=== PATIENT | female | born 1970 | race Caucasian/White ===

== ENCOUNTER 2019-01-05 09:55 | Day surgery (SDC) | payer OTHER, SELFPAY ==
--- NOTE | 2019-01-04 19:08 | HP.PCM_ITS ---
History and Physical Date of Admission: 01/05/19 Madeline Bone 1970 ? ? REFERRING PHYSICIAN: Shashi Morris MD ? CHIEF COMPLAINT: Left breast intraductal papilloma ? HPI: The patient is a 48 year old female presents with episode of milky left breast nipple discharge for a day, and states no other time since. No bloody nipple discharge. No right breast nipple discharge. Denies palpable breast masses. Denies breast pain. Denies previous breast biopsies or surgeries. Aunt had breast cancer, no ovarian cancer known in family. ? Mammograms 11/22/18 IMPRESSION: SUSPICIOUS FINDING - BIOPSY SHOULD BE CONSIDERED There is no abnormality seen in the left breast to correspond with the discharge from the nipple, however, clinical correlation is recommended. US 11/22/18 There is an oval mass with an intraductal extension in the left breast at 11 o'clock in the retroareolar region. ?This oval mass is hypoechoic with a well-defined boundary and internal echoes. IMPRESSION: SUSPICIOUS FINDING - BIOPSY SHOULD BE CONSIDERED The oval mass in the left breast is suspicious of malignancy. ?An ultrasound guided biopsy is recommended. ? US guided needle core breast biopsy - intraductal papilloma ? ? PAST MEDICAL HISTORY ? Allergic rhinitis, cause unspecified 09/10/2008 ? Asthma ? ? Environmental allergies ? ? Never formally tested. Sneezes, itches around cats. ? Excessive or frequent menstruation ? ? Heavy periods ? Gastroesophageal reflux disease without esophagitis 09/10/2008 ? Hemorrhage of gastrointestinal tract, unspecified 05/10/2014 ? Irregular menstrual cycle ? ? Irregular periods ? Mild persistent asthma without complication 12/11/2008 ? Obesity, Class III, BMI >= 40 (morbid obesity) E66.01 12/03/2016 ? Pneumonia 2008 ? Required intubation ? Shortness of breath 2006 ? Was on a ventolator with pneumonia ? Tonsil asymmetry 03/04/2018 ? Lt at 2+ Rt normal. chronic ? ? PAST SURGICAL HISTORY ? COLONOSCOP W/ OR W/O BRSH SPEC ? 05/10/14 ? Colonoscopy ? HYSTEROSCOPY, DIAGNOSTIC (SEPARATE ? 07/01 ? Hysteroscopy & curettage ? LIGATE FALLOPIAN TUBE ? ? ? Tubal ligation ? VAGINAL HYSTERECTOMY ? 12/08/10 ? TVH ? ? Current Outpatient Medications: escitalopram oxalate (LEXAPRO) 20 mg tablet Take 1 tablet by mouth once daily. albuterol sulfate (PROAIR RESPICLICK) 90 mcg/actuation aepb Inhale 1 Inhaler as instructed every 4 hours as needed. omeprazole (PRILOSEC) 20 mg capsule TAKE TWO CAPSULES BY MOUTH ONCE DAILY BEFORE BREAKFAST montelukast (SINGULAIR) 10 mg tablet Take 1 tablet by mouth daily at bedtime. fluticasone-vilanterol (BREO ELLIPTA) 200-25 mcg/dose inhaler Inhale 1 Inhalation as instructed once daily. loratadine (CLARITIN) 10 mg tablet Take 1 tablet by mouth once daily as needed. FOR ALLERGY SYMPTOMS albuterol (PROVENTIL) 2.5 mg /3 mL (0.083 %) nebulizer solution Use 3 mL via nebulizer every 4 hours as needed for Wheezing/Shortness of Breath. Use over 5- 15minutes. albuterol 5 mg/mL nebu Inhale 0.5 mL as instructed every 4 hours as needed for 7 days. 1 DOSE NOW - BACK OFFICE. PLACE 0.5 ML PER DROPPER AND 2.5 ML OF NORMAL SALINE INTO RESERVOIR. ? ? ALLERGIES: Cats; Excedrin [Acetaminophen-Caffeine] ? 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 Other family visitors smoke. Parents and Grandparents smoked in childhood home. Substance and Sexual Activity Alcohol use: Yes Comment: social Drug use: No Social History Narrative In current since home 1993. Neighborhood home. Basement not dry. No visible. Dog in home, entire house access. Master BR hardwood floor. Forced air furnace. No central A/C. Filters twice annually. ? FAMILY HISTORY ? Cancer Father ?? Stomach ? Heart Attack Brother 52 ? Heart Paternal Grandmother ? ? COPD Paternal Grandmother? Emphysema. Smoker. ? Asthma Son ? ? Hypertension Brother ? ? Breast Cancer Paternal Aunt ? ? Diabetes Paternal Aunt ? ? ? REVIEW OF SYSTEMS: General: The patient denies fatigue, denies weight loss, denies weight gain, denies feeling hot, and denies feelings of cold. Eyes: The patient denies glaucoma, denies eye injury/surgery, does not wear glasses or contacts. Ear/Nose/Throat: The patient notes allergies, denies hayfever, denies ear infections, and denies bloody noses. Cardiovascular: The patient denies chest pain, denies heart disease, denies high blood pressure,denies cardiac stent, denies prior heart attack, denies irregular heart beat, denies high cholesterol, denies poor circulation, denies heart failure, other cardiac issues, denies claudication, denies cold feet, denies peripheral arterial stent. Respiratory: The patient denies tuberculosis, denies pneumonia, denies frequent cough, denies pulmonary embolism, denies shortness of breath, and denies coughing up blood. Gastrointestinal: The patient denies difficulty swallowing, notes acid reflux, denies ulcers, denies vomiting, denies jaundice/hepatitis, denies gallbladder problems, denies black or tarry stools, denies hemorrhoids, denies bleeding from rectum, denies diverticulitis, denies constipation, denies diarrhea, denies loss of stool control, and denies hernias. Kidney/Bladder: The patient denies kidney stones, denies urine infections, and denies bloody urine. Skin: The patient denies a history of skin cancer, denies bleeding/changing moles, and denies a history of skin rash. Neurologic: The patient denies a history of epilepsy/convulsions, denies headaches, denies head/spinal injuries, and denies stroke/TIA. Psychiatric: The patient denies psychiatric medications, denies depression, and denies voices, denies substance abuse. Endocrine: The patient denies thyroid disorders, denies diabetes, and denies hormonal problems. Hematologic: The patient denies a history of bruising, denies bleeding, and denies anemia, denies blood clots. Infections: The patient denies a history of measles and mumps, denies rheumatic fever, and denies sexually transmitted diseases. Musculoskeletal: The patient denies back pain/injury, denies back problems, denies sciatica, denies knee/foot trouble, denies arthritis, or denies gout. Obstetrical: menarche onset at age 12, , first at age 18, denies breast feeding, BCP use initially age 18 for about 5 years, Depo for 10 y, surgical menopause age 40, feels like she is having menopause symptoms presently with hot flashes, etc. ? PHYSICAL EXAMINATION: General: The patient is 48 year old female, well nourished, well hydrated in no acute distress. The patient is oriented to time, place, and person. VITALS: Blood pressure 164/82, pulse 85, temperature 36.3 ?C (97.4 ?F), temperature source Temporal Artery, height 161.9 cm (5' 3.75), weight 121 kg (266 lb 12.8 oz), SpO2 98 %. Body mass index is 46.16 kg/m?. Head ? Normocephalic. EOM intact with sclera clear and no icterus noted. Mouth with mucus membranes moist. Neck - supple with no jugular venous distention noted. Trachea is midline. No carotid bruits noted. No thyroid enlargement or thyroid nodules detected. No masses noted. Chest/breast ? no asymmetry of breasts noted, no suspicious skin lesions noted, no nipple discharge and both nipples everted - cannot elicit nipple discharge, no breast masses noted Lungs ? clear to auscultation. Normal breath sounds. No rales/rhonchi/wheezing noted. No labored breathing noted, such as retractions. No cough heard. Heart ? normal S1 and S2 auscultated. No rubs/clicks/murmurs noted. Regular rate. Abdomen ? soft and benign. Normal bowel soundss. No abdominal bruits noted. Difficult to determine if any masses or organomegaly due to body habitus. Extremities ? no calf tenderness noted. No pitting edema noted. Skin ? normal skin integrity. Lymph ? no cervical adenopathy detected, no supraclavicular adenopathy detected, no axillary adenopathy detected Neurological ? gait normal, no focal deficits noted. Psych ? calm and appropriate RADIOLOGIC STUDIES: As Noted ? ? IMPRESSION: left breast intraductal papilloma ? PLAN: I have discussed the above with the patient. I have explained the procedure to her. I have counseled her as to the risks of surgery, including but not limited to: infection, bleeding, injury to any blood vessels/nerves, scar tissue, cosmetic deformity, etc. - she understands. She wishes to proceed. Will schedule procedure at [facility] as per patient's wishes. I have answered all questions to the patient?s satisfaction and the patient has no further questions.
[2019-01-05] VITALS (7 sets, daily range): BP systolic 143–153; BP diastolic 76–96; PULSE 81–97; RESP 14–18; TEMP 36.4–37.3; O2SAT 96–99; BMI 45.9
--- NOTE | 2019-01-05 | BRBX_PTH ---
PATIENT: CINTHYA MAHONEY [place] [facility] [id number] AGE/SX: 48/F ROOM: RE01/05/[address]: Dr. Sandie Blas MD : 1970 BED: DIS: 01/05/2019 SPEC #: [id number] RECD: 01/05/19 13:00 STATUS: HERB REFrancesca #: [id number] [place]: 01/05/19 00:[address]: Sandie Blas DEPT: SURGICAL PATHOLOGY RECD BY: Rafal Heredia ENTERED: 01/05/19 13:00 SP TYPE: BREAST BX OTHR DR: Dr. Shashi Morris MD Tissues: Left breast, NOS Procedures: Surgery Specimen Level V HEADER OPERATION: Left breast biopsy, NL PRE-OP DIAGNOSIS: Left breast intraductal papilloma TISSUE SUBMITTED: Left breast biopsy MICROSCOPIC DIAGNOSIS Left breast, needle localization biopsy: Intraductal papilloma. Intraductal hyperplasia without atypia. Ductal dilatation. Changes consistent with previous biopsy site. Negative for malignancy. SJ:jordana 01/10/19 MICROSCOPIC DESCRIPTION Slides are reviewed. GROSS DESCRIPTION Received fresh and then postfixed labeled with the patient's name is a specimen designated left breast biopsy. The specimen consists of a piece of fibroadipose tissue with needle localization measuring 8 x 5 x 3.5 cm. The specimen is inked, serially sectioned and reveal focal antunez, indurated area consistent with biopsy site measuring 1.5 x 1 x 0.5 cm. Sectioning of the rest of the specimen reveal yellow adipose cut surfaces mixed with scant fibrous areas. [employer]semblies [employer] Installations sections are submitted in ten cassettes as follows: 1-7 - indurated area consistent with previous biopsy site and surrounding tissue, 8-10 - electronics parts sales representative sections from the other area. Sections will be submitted after additional fixation. / NEGOR:jordana 01/08/19 TC:5 [facility]: [id number]
--- NOTE | 2019-01-05 10:00 | BI_ITS ---
SURGICAL BREAST SPECIMEN RADIOGRAPH CLINICAL: Document presence of mass in biopsy specimen. FINDINGS: Specimen shows presence of mass. Electronically Signed: Chris Horton, at 12:59 EST , Service support , BI/Breast Biopsy Specimen
[2019-01-05] MEDS: Lactated Ringers 1,000 ML 75 ML IV (11:30)
--- NOTE | 2019-01-05 12:44 | OP.PCM_ITS ---
Report of Operation Date of Procedure: 01/05/19 Pre-Operative Diagnosis: abnormal lesion of left breast tissue Post-Operative Diagnosis: same Surgery/Procedure Performed:: wide local excision of abnormal tissue of left breast (left breast biopsy via wire localization) Description of Surgical Findings:: fibrocystic breast tissue with cystic lesions with mucus type material within breast cysts and dilated ducts Type of Anesthesia:: Local MAC Anesthesiologist: Jason Holland Specimen's removed: left breast tissue Estimated Blood Loss (mL): < 10 ml Fluids Replaced: 500 ml RL Description of Procedure: After informed consent was given, the patient was brought into the Breast Stereotactic Radiology suite. Appropriate time out protocol was followed. She was placed in the prone position on the Steward stereotactic table. The patient?s left breast was placed in the opening at the head of the table. A supervising bailiff compression mammogram was then obtained in the CC view. The marker clip that was previously placed was identified. Stereo pictures of the lesion were then taken for XYZ coordinates. The Kopans needle was then positioned where it would be entering into the patient?s breast. The skin at this site was then cleansed with a surgical skin preparation. The skin and subcutaneous tissues at this site were then infiltrated with 1% xylocaine. The Kopans needle was then positioned into the patient?s breast at the proper coordinates of depth. A supervising bailiff film was obtained which revealed the wire in proper position. The patient was then placed in the supine position and the wire was taped into place. A unilateral mammogram in the CC and MLO view were then taken for use in the OR. The patient tolerated this portion of the procedure well and was brought to the AC awaiting surgery in the OR. The patient was then brought to the Operating Room. Appropriate time out protocol was followed. She was placed on the operating table in the supine position. A wire had already been placed in the stereotactic biopsy room in the radiology department as described above. The left breast with the wire in placed was then prepped with a sterile surgical skin preparation and sterile surgical drapes were placed. The skin and subcutaneous tissues at the site of the breast lesion was then infiltrated with 1% xylocaine with epinephrine. A circumareolar skin incision was made in the upper medial aspect of the left breast with a 15 blade scalpel and carried down through to the subcutaneous tissues. Hemostasis was controlled with electrocautery. The wire was then palpated out and brought into the wound from outside. The breast tissue surrounding the wire was then carefully palpated out and from the surrounding tissues using electrocautery. The breast tissue, once from the breast, was then forwarded to the radiology department, where a specimen mammogram revealed that the lesion was within the specimen. The breast tissue was then forwarded to pathology for analysis. The wound cavity was carefully examined. No further suspicious tissue was palpated or visualized. The patient had fibrocystic changes of the tissue. Hemostasis was carefully controlled with electrocautery. The subdermal tissues were then approximated with vicryl suture. The incision was then reapproximated close using running monocryl suture. Cavilon and steristrips were then placed to reinforce the skin closure. A sterile dressing was then applied. The patient was then brought to the Recovery Room in stable condition. - Complications none noted - Admit VTE Documentation VTE Present on Admission: Yes VTE Mechan Device Prophylaxis: SCD's
--- NOTE | 2019-01-05 12:48 | DCINST_ITS ---
Discharge Diet: No Restrictions Discharge Activity: Return to Normal Activity, May not drive while taking narcotic pain medications. Call your doctor if your incision/area has: Continuous Slow Oozing, Foul Smelling Discharge Call your doctor if you observe: Fever of 101 or Higher Additional Dressing/Incision Instructions:: Leave dressing in place. may get wet in shower. Do not soak - no tub baths/swimming. wear supportive bra during the day. May apply ice to area for comfort Allergies/Adverse Reactions: Allergies acetaminophen [From Percocet] Adverse Reaction (Verified 01/05/19 10:15) Nausea/Vom/Diarrhea aspirin Adverse Reaction (Verified 01/05/19 10:15) Nausea oxycodone [From Percocet] Adverse Reaction (Verified 01/05/19 10:15) Nausea/Vom/Diarrhea Medications to take at Discharge Albuterol Aerosols [Ventolin Aerosols] 2.5 mg INHALATION Q6HWA.RT 03/11/13 Albuterol Inhaler [Ventolin Hfa] 1 puff INHALATION Q6H PRN PRN 03/11/13 Omeprazole [Prilosec] 40 mg PO BID 03/11/13 Acetaminophen [Tylenol Tablet] 650 mg PO Q6H PRN PRN #0 tablet 04/09/16 Fluticasone/Vilanterol [Breo Ellipta 200-25 Mcg INH] 1 ea IH DAILY 01/01/19 Loratadine [Claritin] 10 mg PO DAILY 01/01/19 Hydrocodone/Acetaminophen [[place] 5-325 Tablet] 1 each PO Q8 PRN 5 Days #15 tablet 01/05/19 The following prescriptions were given: Hydrocodone/Acetaminophen [[place] 5-325 Tablet] 1 each PO Q8 PRN 5 Days #15 tablet PRN Reason: Pain Score 4-10/10 Transmission Status: Sent to [id number] Primary Care Physician: Shashi Morris MD [Primary Care Provider] - Please Follow Up With: Sandie Blas MD - call [phone] When: to be seen in 1-2 weeks, please call for date and time, thank you
== END 2019-01-05 13:42 | disposition home or self-care (01) ==
LOC: SDC 09:58 → AC 10:00
PROVIDERS: Family Provider Family Medicine; PCP Family Medicine; Referring Provider Surgery; Visit Provider Surgery
PROC: (CPT 19101; principal; 2019-01-05 11:15)
DX: D24.2 Benign neoplasm of left breast (principal); K21.9 Gastro-esophageal reflux disease without esophagitis; J45.30 Mild persistent asthma, uncomplicated; E66.01 Morbid (severe) obesity due to excess calories; Z68.42 Body mass index [BMI] 45.0-49.9, adult; Z79.899 Other long term (current) drug therapy; N60.12 Diffuse cystic mastopathy of left breast
CPT/HCPCS: 00400; 19101; 19281; 76098; 88305; 88307; J7050; J7120

== ENCOUNTER → 2024-05-29 | Outpatient (CLI) | payer OTHER, MEDICAID, SELFPAY | END | disposition home or self-care (01) | PROVIDERS: PCP Family Medicine; Referring Provider Nurse Practitioner Family; Visit Provider Nurse Practitioner Family | DX: G47.33 Obstructive sleep apnea (adult) (pediatric) (principal); E66.01 Morbid (severe) obesity due to excess calories; Z68.43 Body mass index [BMI] 50.0-59.9, adult; J45.40 Moderate persistent asthma, uncomplicated; R53.83 Other fatigue | CPT/HCPCS: 95810 ==

== ENCOUNTER → 2024-06-18 | Outpatient (CLI) | payer OTHER, MEDICAID, SELFPAY | END | disposition home or self-care (01) | LOC: SL 11:27 | PROVIDERS: PCP Family Medicine; Referring Provider Nurse Practitioner Family; Visit Provider Nurse Practitioner Family | DX: Z00.00 Encounter for general adult medical examination without abnormal findings (principal) ==

== ENCOUNTER 2024-09-07 10:29 | Emergency (ER) | payer MEDICAID, SELFPAY ==
[2024-09-07 10:29] VITALS: BP 191/81; PULSE 90; RESP 14; TEMP 36.6; O2SAT 98; BMI 52.5
[2024-09-07 11:20] LABS: Hematocrit 38.5 % (37-47); Hemoglobin 12.5 g/dL (12.0-15.0); Immature Granulocytes Count 0.030 X10^3/uL (0.0-0.0); Mean Corp Hgb Conc 32.5 g/dL (32-36); Mean Corpuscular Volume 83.7 fL (81-99); Mean Platelet Vol. 9.8 fl (6.2-12.0); NRBC Flagged by Analyzer 0 % (0-5); Platelet Count 334 K/mm3 (150-450); RBC Distribution Width CV 13.9 % (11.6-14.6); RBC Distribution Width SD 42.4 fl (35.1-43.9); Red Blood Count 4.60 M/mm3 (4.2-5.4); White Blood Count 5.4 K/mm3 (4.4-11.0)
[2024-09-07 11:54] LABS: AST(SGOT) 20 U/L (<=31); Alanine Aminotransfer ALT/SGPT 27 U/L (<=34); Albumin, Serum 4.2 g/dL (3.5-5.0); Alkaline Phosphatase 72 U/L (35-104); Anion Gap 13 (5-15); BUN 16 mg/dL (4-19); BUN/Creat Ratio 15.6 RATIO (10-20); Calcium,Total 9.7 mg/dL (7.6-11.0); Carbon Dioxide 22.6 mmol/L (21.0-32.0); Chloride 105 mmol/L (98-108); Estimated Creatinine Clearance 92.85 ml/min (50-250); Globulin 2.7 g/dL (2.2-4.2); Glucose 110 mg/dL (70-99); Potassium 4.1 mmol/L (3.3-5.1)
[2024-09-07 12:29] VITALS: BP 134/79; PULSE 82; RESP 15; O2SAT 99
--- NOTE | 2024-09-07 12:29 | EX.ED.DYSGE1 ---
HPI History of Present Illness Chief Complaint: General Illness Informant: patient Narrative Narrative: Patient is a 53-year-old female with history of acid reflux (takes omeprazole 40 mg twice a day) presenting with belching, diarrhea and dark/black stools. She notes that she has been taking Gas-X as well as Pepto-Bismol for the past 2 days because she has been belching and having this bloated sensation. She notes yesterday her stools became dark in color. She has had 2-3 diarrhea-like bowel movements. She did recently start on Trulicity 1 week ago has had some increased stress lately but denies any other medication or diet changes. Denies feeling lightheaded. Denies any abdominal pain. Does not report any vomiting. Denies any urinary symptoms. Spoke to her PCP who recommend she come to the emergency room. PFSH PFS Home Medications ?Medication ?Instructions ?Recorded ?Last Taken ?Type Omeprazole [Prilosec] 40 mg PO BID 03/11/13 01/05/19 06:30 History 40 MG albuterol sulfate 2.5 mg/3 mL 2.5 mg inhalation Q6HWA.RT 03/11/13 04/06/16 History (0.083 %) solution for nebulization albuterol sulfate 90 mcg/actuation 1 puff inhalation Q6H PRN PRN 03/11/13 04/06/16 History aerosol inhaler (Ventolin HFA) Shortness Of Breath acetaminophen 325 mg tablet 650 mg (2 x 325 mg) PO Q6H PRN PRN 04/09/16 Unknown Rx (Tylenol) Mild Pain (scale 0-3)/T>100.7 ##0 fluticasone furoate 200 1 ea IH DAILY 01/01/19 01/05/19 06:30 History mcg-vilanterol 25 mcg/dose 1 EA inhalation powder loratadine 10 mg tablet 10 mg PO DAILY 01/01/19 Unknown History pantoprazole 40 mg tablet,delayed 40 mg PO DAILY #14 tabs 09/07/24 Unknown Rx release (Protonix) sucralfate 1 gram tablet (Carafate) 1 g PO TID PRN indigestion #21 tabs 09/07/24 Unknown Rx Allergy/AdvReac Type Severity Reaction Status Date / Time acetaminophen (From Percocet) AdvReac Nausea/Vom/ Verified 09/07/24 10:30 Diarrhea aspirin AdvReac Nausea Verified 09/07/24 10:30 oxycodone (From Percocet) AdvReac Nausea/Vom/ Verified 09/07/24 10:30 Diarrhea Social History Smoking Status: Never smoker ROS ROS ED Constitutional Constitutional ED: Denies chills or fever(s) Respiratory/Chest Respiratory/Chest: Denies cough or dyspnea Gastrointestinal Gastrointestinal: Reports diarrhea, melena and other Details: Belching, bloating ; Denies abdominal pain, nausea or vomiting Musculoskeletal Musculoskeletal: Denies arthralgias or myalgias Integumentary Denies rash Hematologic/Lymphatic Hematologic/Lymphatic: Denies easy bleeding or easy bruising EXAM Physical Exam Const Vital Signs: 09/07/24 10:29 09/07/24 11:13 09/07/24 12:29 Temperature 98 F Temperature Source Temporal Pulse Rate 90 82 Respiratory Rate 14 15 Respiratory Effort Normal Non-Labored Respiratory Pattern Normal Blood Pressure 191/81 H 134/79 H Blood Pressure Mean 117 97 Pulse Ox 98 99 Oxygen Delivery Method Room Air Room Air 09/07/24 14:00 Temperature Temperature Source Pulse Rate 80 Respiratory Rate 16 Respiratory Effort Respiratory Pattern Blood Pressure 140/66 H Blood Pressure Mean 90 Pulse Ox 98 Oxygen Delivery Method Room Air Positive well nourished and well developed General Appearance ED: well developed and NAD; Negative for pallor HEENT Reports moist mucous membranes Eyes PERRL General Eye ED: Negative for pale conjunctiva or scleral icterus Neck supple and no JVD Chest Wall inspection of chest normal and palpation of chest normal Resp normal respiratory effort and clear to auscultation bilaterally Cardio regular rate and regular rhythm GI normal to inspection, nondistended, normoactive bowel sounds, non-tender and non-distended GI Narrative: Sofia-black stool on chaperoned rectal exam. Inspection: Negative for abdominal distention Auscultation: normoactive bowel sounds Palpation: soft; Negative for tender or guarding Back/Spine no CVA tenderness Extremity normal to inspection General Extremety ED: Negative for edema General Extremity: Negative for edema Neuro oriented x3 Sensorium / Orientation: alert Motor Exam: Negative for general weakness Skin no rashes or lesions noted and no wounds General Skin Exam: Negative for jaundice or pallor MDM MDM MDM Narrative Medical decision making narrative: Patient evaluated for diarrhea, bloating, belching and black stools. Differential includes medication side effect, GERD, peptic ulcer disease, H. pylori infection and upper GI bleed in addition to atypical presentation of cardiac syndrome. Upon arrival patient's blood pressure is elevated however on repeat evaluation blood pressure has improved to 140/66. EKG does not show any acute ischemic changes and high since he troponin is normal. Do not think this is referred cardiac symptoms. CBC is normal specifically she has normal hemoglobin. CMP is largely normal with a normal BUN and I have a lower suspicion for GI bleed. Stool is charcoal colored but it is Hemoccult negative. Suspect it is discoloration from Pepto-Bismol. Urinalysis is not consistent with infection. Patient unable to provide a stool sample. Lower suspicion for C. difficile as the cause of her diarrhea especially she is only having 2 episodes per day and she does not have a leukocytosis. Patient does have temporary improvement with a GI cocktail. Will be given referral for GI she has never had endoscopy. Will switch her from omeprazole to Protonix also adding Carafate for symptom control. Counseled she can also try [id number] Maalox. At this time feel that she can safely be discharged home. Do not think she requires abdominal imaging at this time given that I do not think she has active GI bleeding and she is having regular bowel movements low suspicion for any obstructive pathology. Patient is agreeable this plan of care. Discharged home in stable condition. Lab Data Attestation: I reviewed the patient's lab results. Labs: Laboratory Results - last 24 hr 09/07/24 09/07/24 09/07/24 11:15 13:07 13:16 WBC 5.4 RBC 4.60 Hgb 12.5 Hct 38.5 MCV 83.7 MCH 27.2 MCHC 32.5 RDW Std Deviation 42.4 RDW Coeff of Loyd 13.9 Plt Count 334 MPV 9.8 Immature Gran % (Auto) 0.600 Neut % (Auto) 58.0 Lymph % (Auto) 25.2 Beckham % (Auto) 7.6 Eos % (Auto) 7.3 H Baso % (Auto) 1.3 H Absolute Neuts (auto) 3.1 Absolute Lymphs (auto) 1.35 Nucleated RBC % 0 Sodium 140 Potassium 4.1 Chloride 105 Carbon Dioxide 22.6 Anion Gap 13 BUN 16 Creatinine 1.00 Estim Creat Clear Calc 92.85 Est GFR (MDRD) Non-Af 68 BUN/Creatinine Ratio 15.6 Glucose 110 H Calcium 9.7 Total Bilirubin 0.26 AST 20 ALT 27 Alkaline Phosphatase 72 Troponin T High Sens 7 Troponin T Hi Sens 2 Hr 7 Total Protein 6.9 Albumin 4.2 Globulin 2.7 Albumin/Globulin Ratio 1.6 Urine Color Yellow Urine Clarity Clear Urine pH 5.0 Ur Specific [place] 1.020 Urine Protein 15 H Urine Glucose (UA) Normal Urine Ketones Negative Urine Occult Blood 10 H Urine Nitrite Negative Urine Bilirubin Negative Urine Urobilinogen Normal Ur Leukocyte Esterase Negative Urine RBC 0 SEEN Urine WBC 0 SEEN Ur Squamous Epith Cells 5-10 SEEN Urine Bacteria 0 SEEN Urine Mucus 0 SEEN Rhythm Strip Rhythm Strip: Sinus Rhythm Rate: 79 Ectopy: None EKG Initial EKG: Attestation: I personally reviewed and interpreted this EKG as follows: Interpretation: Sinus Rhythm Comments: Normal sinus rhythm rate of 79 bpm Normal axis Normal intervals Normal ST segments Compared to prior EKG on 04/06/2016 patient does have some change to the R wave progression in the precordial leads Discharge Plan Triage Chief Complaint: General Illness ED Provider: Rekha Stewart Dx/Rx/DC Orders Clinical Impression: Belching, Abdominal bloating, Diarrhea Instructions: ED Diarrhea, Unknown Cause, ED Gastritis (Adult) Prescriptions: New pantoprazole [Protonix] 40 mg tablet,delayed release (DR/EC) 40 mg PO DAILY Qty: 14 0RF sucralfate [Carafate] 1 gram tablet 1 g PO TID PRN (Reason: indigestion) Qty: 21 0RF No Action albuterol sulfate 2.5 MG/3 ML solution for nebulization 2.5 mg inhalation Q6HWA.RT Patient Comments: ASTHMA albuterol sulfate [Ventolin HFA] 1 INHALER inhaler 1 puff inhalation Q6H PRN PRN (Reason: Shortness Of Breath) Patient Comments: ASTHMA Omeprazole [Prilosec] 40 MG capsule 40 mg PO BID Patient Comments: ACID REFLUX acetaminophen [Tylenol] 325 MG tablet 650 mg PO Q6H PRN PRN (Reason: Mild Pain (scale 0-3)/T>100.7) Qty: 0 0RF loratadine 10 MG tablet 10 mg PO DAILY fluticasone furoate-vilanterol 1 EACH blister with device 1 ea IH DAILY Primary Care Provider: Shashi Morris Referrals: Shashi Morris MD [Primary Care Provider] - Friend,DO Kevin [Med Staff - Active Staff] - Activity Restrictions/Additional Instructions: Stop taking your omeprazole. You can switch to a different antacid (pantoprazole) and also given Carafate which coats the stomach and should help with some of the indigestion symptoms. Please follow-up with GI next week. Return to given progression where she your symptoms. You have any signs consistent with GI bleeding today. I suspect the stool discoloration is associated with taking Pepto-Bismol. Print Language: [place] Citizen Disposition Disposition: Home, Self Care
[2024-09-07] MEDS: Lidocaine 2% Viscous15 ML UDC 15 ML PO (12:45)
[2024-09-07 13:08] LABS: Mucous, Urine 0 SEEN /hpf (<or=2+); Red Blood Cells-Urine 0 SEEN /hpf (0-5)
[2024-09-07 13:11] LABS: Color, Urine Yellow (Yellow); Glucose, Dipstick Normal (Normal); Ketone-Dipstick Negative (Negative); Leukocyte Esterase-Dipstick Negative /ul (Negative); Nitrite-Dipstick Negative (Negative); Occult Blood-Urine 10 /ul (Negative); Protein-Dipstick 15 mg/dl (Negative); Specific Gravity, Urine 1.020 (1.002-1.030); Urine Bilirubin Dipstick Negative (Negative)
[2024-09-07 13:18] LABS: Squamous Epithelial Cells - UA 5-10 SEEN /hpf (5-10)
[2024-09-07 14:00] VITALS: BP 140/66; PULSE 80; RESP 16; O2SAT 98
[2024-09-07 14:05] LABS: Troponin T High Sens 2 HR 7 ng/L (<=14)
[2024-09-07 14:27] LABS: Troponin T High Sensitivity 7 ng/L (<=14)
[2024-09-07 14:43] VITALS: BP 145/86; PULSE 78; RESP 18; TEMP 36.7; O2SAT 98
== END 2024-09-07 14:45 | disposition home or self-care (01) ==
PROVIDERS: Emergency Provider Emergency Medicine; PCP Family Medicine; Visit Provider Emergency Medicine
DX: R14.2 Eructation (principal); K21.9 Gastro-esophageal reflux disease without esophagitis; Z79.899 Other long term (current) drug therapy; Z79.85 Long-term (current) use of injectable non-insulin antidiabetic drugs; R14.0 Abdominal distension (gaseous); R19.7 Diarrhea, unspecified
CPT/HCPCS: 80053; 81001; 82274; 84484; 85025; 93005; 99284; A4216

== ENCOUNTER 2024-11-20 05:51 | Day surgery (SDC) | payer MEDICAID, SELFPAY ==
--- NOTE | 2024-11-14 15:28 | PAT.ANESEVAL ---
Pre-Assessment Diagnosis/Proposed Procedure Planned Operative Procedure(s): EGD Anesthesia History Anesthesia History - perioperative manager: Anesthesia History - perioperative manager Hx Hospitalization No 11/14/24 14:21 Any Problems With Anesthesia No 11/14/24 14:21 Cholinesterase deficiency No 11/14/24 14:21 You/Your Family Experience No 11/14/24 14:21 fever (hyperthermia) with Relationship Recent Exposure to Contagious No 01/05/19 10:17 Disease Does patient have nerve No 11/14/24 14:21 stimulator Patient instructed to have device shut off --Does patient have Pacemaker or ICD? When Was Last Pacemaker Check QUESTION #4 FULL TEXT: You/Your Family Experience fever (hyperthermia) with Anesthesia Last Oral Intake Last Oral intake: Last Oral Intake NPO since Meds taken in AM with sips of water? Meds patient instructed to take am of surgery PONV PONV - perioperative manager: PONV - perioperative manager Female Yes 11/14/24 14:21 HX of Motion Sickness Yes 11/14/24 14:21 HX of N/V After Surgery No 11/14/24 14:21 Non-Smoker Yes 11/14/24 14:21 Duration of Surgery greater No 11/14/24 14:21 than 60 minutes Number of Risk Factors 3 11/14/24 14:21 PONV Score Moderate Risk 11/14/24 14:21 Height & Weight Height & Weight: Anesthesia: Height & Weight Height 5 ft 4 in 10/16/24 10:01 Respiratory Assessment Respiratory Assessment - perioperative manager: Respiratory Tract Infection Hx - perioperative manager Hx Respiratory Tract Infection No 11/14/24 14:21 STOP Sleep Apnea STOP Sleep Apnea - perioperative manager: STOP Sleep Apnea - perioperative manager Hx Hypertension No 11/14/24 14:21 Hx Sleep Apnea No: PARTIAL SLEEP STUDIES 11/14/24 14:21 DONE CPAP BIPAP Do you snore loudly (louder No 11/14/24 14:21 than talking or can be heard Do you often feel tired/ No 11/14/24 14:21 fatigued/ sleepy during daytime? Has anyone observed you stop No 11/14/24 14:21 breathing during sleep? STOP Results Negative 11/14/24 14:21 QUESTION #5 FULL TEXT : Do you snore loudly (louder than talking or can be heard through closed doors)? 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 Specify any problems Hx of Preganancy in last 3 N/A 11/14/24 14:21 Months Nurse Filling Out Transfusion VCHRISTIN 11/14/24 14:21 & Questions: Date: 11/14/24 11/14/24 14:21 Time: 14:22 11/14/24 14:21 Patient unable to answer at this time (ie. confused, unrespo /Reproduction History /Reproductive History - perioperative manager: /Reproductive Hx- perioperative manager Hx Now No 11/14/24 14:21 Gestational Age (in weeks): EDC: Hx Hx Para [facility] Medical History (Updated 11/14/24 @ 14:21 by Loreta Gutierres) Wears contact lenses Wears glasses Depression History of steroid therapy Gastric reflux Non-smoker Sleep apnea Shortness of breath on exertion Asthma Restless leg Hypertension Arthritis Seasonal allergies GERD (gastroesophageal reflux disease) Home Medications ?Medication ?Instructions ?Recorded ?Last Taken ?Type albuterol sulfate 2.5 mg/3 mL 2.5 mg inhalation Q6HWA.RT 03/11/13 04/06/16 History (0.083 %) solution for nebulization albuterol sulfate 90 mcg/actuation 2 puff inhalation Q6H PRN PRN 03/11/13 04/06/16 History aerosol inhaler (Ventolin HFA) Shortness Of Breath acetaminophen 325 mg tablet 650 mg (2 x 325 mg) PO Q6H PRN PRN 04/09/16 Unknown Rx (Tylenol) Mild Pain (scale 0-3)/T>100.7 #0 TABLETS loratadine 10 mg tablet 10 mg PO DAILY 01/01/19 Unknown History famotidine 40 mg tablet 40 mg PO QDAY #30 tabs 10/16/24 Unknown Rx ropinirole 0.5 mg tablet 0.5 mg PO QHS 10/16/24 Unknown History ropinirole 1 mg tablet 1 mg PO QHS 10/16/24 Unknown History cholecalciferol (vitamin D3) 10 10 mcg PO DAILY 11/14/24 Unknown History mcg (400 unit) chewable tablet (Kids Vitamin D3) cyanocobalamin (vitamin B-12) 50 50 mcg PO DAILY 11/14/24 Unknown History mcg tablet (Vitamin B-12) losartan 25 mg tablet 25 mg PO DAILY 11/14/24 Unknown History metformin 500 mg tablet,extended 1,000 mg PO QPM 11/14/24 Unknown History release 24 hr mometasone-formoterol HFA 200 2 puff inhalation BID 11/14/24 Unknown History mcg-5 mcg/actuation aerosol inhaler (Dulera) montelukast 10 mg tablet 10 mg PO QHS 11/14/24 Unknown History omeprazole 20 mg capsule,delayed 40 mg PO DAILY 11/14/24 Unknown History release Allergy/AdvReac Type Severity Reaction Status Date / Time aspirin AdvReac Nausea Verified 11/14/24 14:09 Family History (Updated 10/16/24 @ 10:08 by Deena Guerra) Other Arthritis Breast cancer CVA (cerebral vascular accident) Cancer Diabetes High cholesterol Hypertension Myocardial infarction Surgical History (Updated 11/14/24 @ 14:21 by Loreat Gutierres) Hx of breast biopsy S/P hysterectomy Breast cyst Social History (Updated 10/16/24 @ 10:15 by Deena Guerra) Smoking Status: Never smoker alcohol intake: never substance use type: does not use Audit: Pertinent Findings Pertinent Findings EKG Perinent findings: EKG 07 September 2024. Normal sinus rhythm. Recommendation Anesthesia Recommendation Anesthesia recommendation: OPTIMIZED for anesthesia
--- OUTSIDE RECORDS SUMMARY | 2024-11-16 10:09 | XMS RPT_ITS ---
Author Name Auto Generated Organization OHIP Care Team Providers Care Independent Contractor Name Role Phone KAREN, SHASHI A Primary Care Unavailable KAREN, SHASHI A Primary Care Unavailable NENITA WOODS Attending Unavailable KAREN, SHASHI A Primary Care Unavailable NENITA WOODS Referring Unavailable JUAN C LOPEZ Attending Unavailable KAREN, SHASHI A Primary Care Unavailable LILLIE PERRY Referring Unavailable KAREN, SHASHI A Primary Care Unavailable JENNIFER RATLIFF Attending Unavailable KAREN, SHASHI A Primary Care Unavailable KAREN, SHASHI A Primary Care Unavailable JUAN C LOPEZ Attending Unavailable KAREN, SHASHI A Primary Care Unavailable DORIS VILLANUEVA Attending Unavailable KAREN, SHASHI A Primary Care Unavailable JUAN C LOPEZ Attending Unavailable JENNIFER RATLIFF Attending Unavailable KAREN, SHASHI A Primary Care Unavailable Jay'DENEA CHING Attending Unavailable KAREN, SHASHI A Primary Care Unavailable DORIS VILLANUEVA Referring Unavailable KAREN, SHASHI A Primary Care Unavailable DEENA SU Attending Unavailable DORIS VILLANUEVA Referring Unavailable KAREN, SHASHI A Primary Care Unavailable DORIS VILLANUEVA Referring Unavailable KAREN, SHASHI A Primary Care Unavailable JUAN C LOPEZ Attending Unavailable KAREN, SHASHI A Primary Care Unavailable MINA MAHER Attending Unavailable KAREN, SHASHI A Primary Care Unavailable NICOLE GILBERT Referring Unavailable NICOLE GILBERT Attending Unavailable KAREN, SHASHI A Primary Care Unavailable LILLIE PERRY Attending Unavailable KAREN, SHASHI A Primary Care Unavailable SELF Referring Unavailable KAREN, SHASHI A Primary Care Unavailable JUAN C LOPEZ Referring Unavailable JENNIFER RATLIFF Attending Unavailable KAREN, SHASHI A Primary Care Unavailable ANGELIC WONG Attending Unavailable KAREN, SHASHI A Primary Care Unavailable MINA MAHER Referring Unavailable LILLIE PERRY Referring Unavailable KAREN, SHASHI A Primary Care Unavailable JENNIFER RATLIFF Referring Unavailable KAREN, SHASHI A Primary Care Unavailable KAREN, SHASHI A Primary Care Unavailable JUAN C LOPEZ Attending Unavailable KAREN, SHASHI A Primary Care Unavailable JENNIFER RATLIFF Attending Unavailable KAREN, SHASHI A Primary Care Unavailable KAREN, SHASHI A Primary Care Unavailable JENNIFER RATLIFF Attending Unavailable KAREN, SHASHI A Primary Care Unavailable JUAN C LOPEZ Attending Unavailable KAREN, SHASHI A Primary Care Unavailable KNDEMETRI, JUAN C Referring Unavailable KAREN, SHASHI A Primary Care Unavailable MINA MAHER Referring Unavailable LILLIE PERRY Referring Unavailable NENITA WOODS Attending Unavailable KAREN, SHASHI A Primary Care Unavailable CLICKNENITA Referring Unavailable KAREN, SHASHI A Primary Care Unavailable KAREN, SHASHI A Primary Care Unavailable NENITA WOODS Referring Unavailable CLICKNENITA Attending Unavailable KAREN, SHASHI A Referring Unavailable KAREN, SHASHI A Primary Care Unavailable VETOVITZ, ANGELIC Referring Unavailable VETOVITZ, ANGELIC Attending Unavailable KAREN, SHASHI A Primary Care Unavailable PROBLEMS DATE TYPE CONDITION / CODE ATTENDING STATUS [facility] 10/08/2024 Active DRE on CPAP / G47.33(ICD-10) JUAN C LOPEZ Active [facility] 12/21/2023 Active Class 3 severe o besity with serious comorbidity and body mass index (BMI) of 50.0 to 59.9 in adult (HCC) / E66.813(ICD-10) JUAN C LOPEZ Active [facility] 12/21/2023 Active Class 3 severe o besity with serious comorbidity and body mass index (BMI) of 50.0 to 59.9 in adult (HCC) / Z68.43(ICD-10) JUAN C LOPEZ Active [facility] 09/28/2022 Active Situational depr ession / F43.21(ICD-10) JUAN C LOPEZ Active [facility] 04/29/2022 Active Moderate persist ent asthma without complication (HCC) / J45.40(ICD-10) JUAN C LOPEZ Active [facility] 01/04/2022 Active Fatty liver / K76.0(ICD-10) JUAN C LOPEZ Active [facility] 10/30/2021 Active Well adult exam / Z00.00(ICD-10) JUAN C LOPEZ Active [facility] 04/29/2021 Active Restless leg syn drome / G25.81(ICD-10) JUAN C LOPEZ Active [facility] 04/29/2021 Active Arthritis of kne e / M17.10(ICD-10) JUAN C LOPEZ Active [facility] 03/04/2018 Active Gastroesophageal reflux disease without esophagitis / K21.9(ICD-10) JUAN C LOPEZ Active [facility] 03/04/2018 Active Environmental al lergies / Z91.09(ICD-10) JUAN C LOPEZ Active [facility] 10/24/2024 Active Encounter for sc reening examination for other mental health and behavioral disorders / Z13.39(ICD-10) JUAN C LOPEZ Active [facility] 10/24/2024 Active Elevated BP with out diagnosis of hypertension / R03.0(ICD-10) JUAN C LOPEZ Active [facility] 10/24/2024 Active Vitamin D defici ency / E55.9(ICD-10) JUAN C LOPEZ Active [facility] 10/24/2024 Active NADIRA (generalized anxiety disorder) / F41.1(ICD-10) JUAN C LOPEZ Active [facility] 10/24/2024 Active Hypertension, es sential / I10(ICD-10) JUAN C LOPEZ Active [facility] 10/24/2024 Active Screening for co maritza cancer / Z12.11(ICD-10) JUAN C LOPEZ Active [facility] 10/24/2024 Active Encounter for immunization / Z23(ICD-10) JUAN C LOPEZ Active [facility] 04/29/2021 Active Medication manag ement / Z79.899(ICD-10) BEHZAD Active [facility] 03/04/2018 Active Encounter for sc reening for diabetes mellitus / Z13.1(ICD-10) NA Active [facility] 10/09/2024 Active Encounter for li pid screening for cardiovascular disease / Z13.220(ICD-10) NA Active [facility] 10/09/2024 Active Encounter for li pid screening for cardiovascular disease / Z13.6(ICD-10) NA Active [facility] 09/24/2024 Active Encounter for sc reening mammogram for breast cancer / Z12.31(ICD-10) NA Active [facility] 12/21/2023 Active Hyperinsulinemia / E16.1(ICD-10) JENNIFER RATLIFF Active [facility] 07/17/2024 Active Morbid obesity ( HCC) / E66.01(ICD-10) NENITA WOODS Active [facility] 07/17/2024 Active Moderate persist ent asthma, unspecified whether complicated (HCC) / J45.40(ICD-10) NA Active [facility] 06/25/2024 Active Primary osteoart hritis of both knees / M17.0(ICD-10) ANGELIC WONG Active [facility] 06/25/2024 Active Pain in both kne es, unspecified chronicity / M25.561(ICD-10) NA Active [facility] 06/25/2024 Active Pain in both kne es, unspecified chronicity / M25.562(ICD-10) NA Active [facility] 06/07/2024 Active Vaginal irritati on / N89.8(ICD-10) JUAN C LOPEZ Active [facility] 05/23/2024 Active Moderate persist ent asthma with acute exacerbation (HCC) / J45.41(ICD-10) NENITA WOODS Active [facility] 05/23/2024 Active Productive cough / R05.8(ICD-10) NENITA WOODS Active [facility] 04/27/2024 Active Acute right-side d thoracic back pain / M54.6(ICD-10) DEENA SU Active [facility] 04/26/2024 Active Encounter for lo ng-term (current) use of medications / Z79.899(ICD-10) NA Active [facility] 12/21/2023 Active Class 3 severe o besity with serious comorbidity and body mass index (BMI) of 50.0 to 59.9 in adult, unspecified obesity type (HCC) / E66.813(ICD-10) JENNIFER RATLIFF Active [facility] 12/21/2023 Active Class 3 severe o besity with serious comorbidity and body mass index (BMI) of 50.0 to 59.9 in adult, unspecified obesity type (HCC) / Z68.43(ICD-10) JENNIFER RATLIFF Active [facility] 12/21/2023 Active Class 3 severe o besity with serious comorbidity and body mass index (BMI) of 50.0 to 59.9 in adult, unspecified obesity type (HCC) / E66.01(ICD-10) JENNIFER RATLIFF Active [facility] 11/01/2023 Active DRE (obstructive sleep apnea) / G47.33(ICD-10) JENNIFER RATLIFF Active [facility] 04/29/2022 Active Moderate persist ent asthma without complication / J45.40(ICD-10) JENNIFER RATLIFF Active [facility] 04/03/2024 Active Pain in right fo ot / M79.671(ICD-10) NA Active [facility] 01/03/2024 Active Rash / R21(ICD-10) JUAN C LOPEZ [facility] PROCEDURES No Procedure Records Found RESULTS PROGRESS Observed: 11/20/2024 8:51 AM Status: COMPLETED Source: [facility] HNO ID: [id number] Author: DARCY LUCERO MA Service: ? Author Type: Computerized Machine Fabric Cutter Type: Progress Notes Filed: 11/20/2024 15:29 Note Text: Scan on 11/20/2024 7:50 AM by ProviderNila PA-C: EGD Scan on 11/20/2024 6:45 AM by ProviderNila PA-C: Gastro Scan on 11/20/2024 8:27 AM by Provider External, PA-C: Physician letter Endoscopy procedure PROGRESS Observed: 11/16/2024 10:30 AM Status: COMPLETED Source: [facility] HNO ID: [id number] Author: NENITA WOODS APRN.CNP Service: ? Author Type: Nurse Practitioner Type: Progress Notes Filed: 11/16/2024 13:00 Note Text: Pulmonary Medicine Patients name: Cinthya Banks PCP: Shashi Jones MD Recording using ambient [employer] Star software for draft documentation of the visit was discussed with the patient/authorized outside industrial sales representative; all questions welcomed and answered. Patient/authorized outside industrial sales representative agreed to proceed CC: follow-up HPI: Cinthya Bone is a 54 year old female morbidly obese female never smoker, with PMH significant for Asthma, GERD, Allergies and history of Covid September 2021. SUSSY 06/2024 with 2 recent asthma exacerbations. Nitric oxide increased to 42 ppb. Increased therapy. Current maintenance therapy Dulera, Spiriva, Singulair and as needed Albuterol. She presents today for follow-up. Since her last visit, she reports controlled symptoms. Nitric oxide today is now within normal range. Generally reports feeling well but today, has had a slight increase in cough. Occasionally productive with clear/sometimes green sputum. No hemoptysis. No wheezing or significant shortness of breath. No fevers, chills, or night sweats. Has GERD/heartburn, uses PPI. No recent hospitalizations or ED visits or upper respiratory infections. Uses Albuterol 2-3 a week. Has been using Duoneb more the past week d/t cough with improvement in symptoms. She is working on weight loss, recently tried Trulicity but experienced side effects. PAST MEDICAL HISTORY Diagnosis Date Allergic rhinitis, cause unspecified 09/10/2008 Arthritis Arthritis of knee 10/30/2020 Asthma Benign neoplasm of left breast 2018 COVID-19 virus infection 10/14/2021 10/14/2021 Environmental allergies Never formally tested. Sneezes, itches around cats. Excessive or frequent menstruation Heavy periods Fatty liver 01/04/2022 Noted on US 12/2021 Gastroesophageal reflux disease without esophagitis 09/10/2008 Hemorrhage of gastrointestinal tract, unspecified 05/10/2014 Irregular menstrual cycle Irregular periods Liver cyst 01/08/2022 MRI: 12/2021 Mild persistent asthma without complication (HCC) 12/11/2008 Obesity, Class III, BMI >= 40 (morbid obesity) E66.01 12/03/2016 Pneumonia 2008 Required intubation Restless leg syndrome 10/30/2020 Shortness of breath 2007 Was on a ventolator with pneumonia Situational depression 09/28/2022 Tonsil asymmetry 03/04/2018 Lt at 2+ Rt normal. chronic Well adult exam 09/01/2018 Done 10/30/2020 Allergies: Cats Swelling Comment:rash Medication List Accurate as of November 16, 2024 7:40 AM. If you have any questions, ask your nurse or doctor. CONTINUE taking these medications buPROPion XL 300 mg 24 hr tablet Commonly known as: WELLBUTRIN XL Take 1 tablet by mouth once daily. diclofenac (EC) 75 mg EC tablet Commonly known as: VOLTAREN Take 1 tablet by mouth two times a day. dulaglutide 1.5 mg/0.5 mL pen injector Commonly known as: TRULICITY Inject 1.5 mg subcutaneously one time a week for 28 days. Patient should start on October 18, 2024. DULERA 200-5 mcg/actuation inhaler Generic drug: mometasone-formoterol Inhale 2 Puffs as instructed two times a day. loratadine 10 mg tablet Commonly known as: CLARITIN Take 1 tablet by mouth once daily as needed. FOR ALLERGY SYMPTOMS losartan 25 mg tablet Commonly known as: COZAAR Take 1 tablet by mouth once daily. metFORMIN ER 500 mg 24 hr tablet Commonly known as: GLUCOPHAGE XR Take 2 tablets by mouth daily with dinner. montelukast 10 mg tablet Commonly known as: SINGULAIR Take 1 tablet by mouth daily at bedtime. Nebulizer Accessories Kit Provide 1 kit. omeprazole 20 mg capsule Commonly known as: PriLOSEC TAKE TWO CAPSULES BY MOUTH ONCE DAILY BEFORE BREAKFAST peg 3350-Electrolytes 236-22.74-6.74 -5.86 gram suspension Commonly known as: GOLYTELY Refer to printed prep instructions from your provider. * PROAIR RESPICLICK 90 mcg/actuation Generic drug: albuterol sulfate Inhale 2 Puffs as instructed every 6 hours as needed. * albuterol 2.5 mg /3 mL (0.083 %) nebulizer solution Commonly known as: PROVENTIL Use 3 mL via nebulizer every 4 hours as needed for wheezing/shortness of breath. Use over 5-15minutes. * albuterol HFA 90 mcg/actuation inhaler Commonly known as: PROVENTIL HFA, VENTOLIN HFA INHALE 2 PUFFS BY MOUTH EVERY 6 HOURS NEEDED FOR SHORTNESS OF BREATH AND WHEEZING * rOPINIRole 1 mg tablet Commonly known as: REQUIP Take 1 tablet by mouth daily at bedtime. * rOPINIRole 0.5 mg tablet Commonly known as: REQUIP Take 1 tablet by mouth daily at bedtime. Take with 1mg tab for total of 1.5mg. SPIRIVA RESPIMAT 1.25 mcg/actuation inhaler Generic drug: tiotropium bromide Inhale 2 puffs as instructed once daily. venlafaxine ER 37.5 mg 24 hr capsule Commonly known as: EFFEXOR XR Take 1 capsule by mouth once daily. VITAMIN B-12 1,000 mcg Tab Generic drug: cyanocobalamin Vitamin D-3 400 unit Tab Generic drug: cholecalciferol * This list has 5 medication(s) that are the same as other medications prescribed for you. Read the directions carefully, and ask your doctor or other care provider to review them with you. DATA: I personally reviewed and analyzed all labs, radiographs and available pulmonary function testing Nitric oxide: PFT: 06/2024 Spirometry reveals a reduced FEV1/FVC with normal FEV1 and FVC values. This could reflect a normal presentation or could indicate mild obstruction. Clinical correlation recommended. The increase in FEF 25-75 post-bronchodilator reflects an improvement in the small airway obstruction. CXR: Last XR Chest - Impression Only XR CHEST 2V FRONTAL/LAT Exam End: 05/23/2024 1:54 PM (Final result) Impression: IMPRESSION: No acute radiographic abnormality. ... Review of Systems Constitutional: Negative for activity change, appetite change, fever and unexpected weight change. HENT: Negative for congestion, mouth sores and postnasal drip. Respiratory: Positive for cough. Negative for chest tightness, shortness of breath and wheezing. Cardiovascular: Negative for chest pain, palpitations and leg swelling. Allergic/Immunologic: Positive for environmental allergies. Neurological: Negative for dizziness and weakness. BP 124/84 Pulse 72 Resp 16 Wt (!) 136.5 kg (301 lb) LMP 12/01/2010 (Exact Date) SpO2 99% BMI 52.65 kg/m? Physical Exam Vitals reviewed. Constitutional: General: She is not in acute distress. Appearance: Normal appearance. She is obese. She is not ill-appearing. HENT: Head: Normocephalic. Mouth/Throat: Mouth: Mucous membranes are moist. Pharynx: No oropharyngeal exudate or posterior oropharyngeal erythema. Cardiovascular: Rate and Rhythm: Normal rate and regular rhythm. Heart sounds: Normal heart sounds. Pulmonary: Effort: Pulmonary effort is normal. No respiratory distress. Breath sounds: No wheezing or rhonchi. Musculoskeletal: Right lower leg: No edema. Left lower leg: No edema. Skin: General: Skin is warm and dry. Capillary Refill: Capillary refill takes less than 2 seconds. Neurological: General: No focal deficit present. Mental Status: She is alert. 1. Moderate persistent asthma without complication ([facility]) (J45.40) Asthma control has improved since the addition of Spiriva to Dulera; FeNO decreased from 42 in June to 12 today. Patient reports a mild, intermittent, productive cough without wheezing, dyspnea, or fever; no recent steroid or antibiotic use. Albuterol inhaler used 2-3 times per week; DuoNeb nebulizer used as needed for cough. - Continue current regimen: Spiriva, Dulera, albuterol inhaler, and DuoNeb as needed. - Advised regular use of Flonase to address potential postnasal drip contributing to cough. - Instructed to report any worsening symptoms or concerns. - Follow-up in 6 months. 2. Environmental allergies (Z91.09) Patient is on Singulair and Flonase for environmental allergies; Flonase is not used consistently. - Advised regular use of Flonase to address potential postnasal drip contributing to cough. 3. Morbid obesity ([facility]) (E66.01) - Patient discontinued Trulicity due to adverse GI effects; has follow-up next month to discuss alternative weight management options. - BMI 52 - recommend continued efforts for weight loss. F/u 6 months Portions of this documentation were copied and pasted from previous office visit notes in order to provide a cohesive continuity of the history. The note has been reviewed and edited and updated as necessary. Nenita Woods, QUETA.DAKOTA I spent a total of 18 minutes on the date of the service which included preparing to see the patient, [id number] patient care, completing clinical documentation, performing a medically appropriate examination, counseling and educating the patient/family/caregiver, and communicating results to the patient/family/caregiver. CNOV Observed: 11/16/2024 10:30 AM Status: COMPLETED Source: [facility] Office Visit (PULMWS) CINTHYA BONE ([id number]) 1970 F NFR Date Time Provider Department 11/16/24 10:30 AM NENITA WOODS During your visit today, we recorded the following information about you: Pulse Respiration Blood pressure Weight 72/minute 16/minute 124/84 136.5 kg Nenita Woods APRN.COMMERCIAL CRABBER 11/16/2024 1:00 PM Signed Pulmonary Medicine Patients name: Cinthya Banks PCP: Shashi Jones MD Recording using Qapa software for draft documentation of the visit was discussed with the patient/authorized outside industrial sales representative; all questions welcomed and answered. Patient/authorized outside industrial sales representative agreed to proceed CC: follow-up HPI: Cinthya Bone is a 54 year old female morbidly obese female never smoker, with PMH significant for Asthma, GERD, Allergies and history of Covid September 2021. SUSSY 06/2024 with 2 recent asthma exacerbations. Nitric oxide increased to 42 ppb. Increased therapy. Current maintenance therapy Dulera, Spiriva, Singulair and as needed Albuterol. She presents today for follow-up. Since her last visit, she reports controlled symptoms. Nitric oxide today is now within normal range. Generally reports feeling well but today, has had a slight increase in cough. Occasionally productive with clear/sometimes green sputum. No hemoptysis. No wheezing or significant shortness of breath. No fevers, chills, or night sweats. Has GERD/heartburn, uses PPI. No recent hospitalizations or ED visits or upper respiratory infections. Uses Albuterol 2-3 a week. Has been using Duoneb more the past week d/t cough with improvement in symptoms. She is working on weight loss, recently tried Trulicity but experienced side effects. PAST MEDICAL HISTORY Diagnosis Date Allergic rhinitis, cause unspecified 09/10/2008 Arthritis Arthritis of knee 10/30/2020 Asthma Benign neoplasm of left breast 2019 COVID-19 virus infection 10/14/2021 10/14/2021 Environmental allergies Never formally tested. Sneezes, itches around cats. Excessive or frequent menstruation Heavy periods Fatty liver 01/04/2022 Noted on US 12/2021 Gastroesophageal reflux disease without esophagitis 09/10/2008 Hemorrhage of gastrointestinal tract, unspecified 05/10/2014 Irregular menstrual cycle Irregular periods Liver cyst 01/08/2022 MRI: 12/2021 Mild persistent asthma without complication (HCC) 12/11/2008 Obesity, Class III, BMI >= 40 (morbid obesity) E66.01 12/03/2016 Pneumonia 2008 Required intubation Restless leg syndrome 10/30/2020 Shortness of breath 2006 Was on a ventolator with pneumonia Situational depression 09/28/2022 Tonsil asymmetry 03/04/2018 Lt at 2+ Rt normal. chronic Well adult exam 09/01/2018 Done 10/30/2020 Allergies: Cats Swelling Comment:rash Medication List Accurate as of November 16, 2024 7:40 AM. If you have any questions, ask your nurse or doctor. CONTINUE taking these medications buPROPion XL 300 mg 24 hr tablet Commonly known as: WELLBUTRIN XL Take 1 tablet by mouth once daily. diclofenac (EC) 75 mg EC tablet Commonly known as: VOLTAREN Take 1 tablet by mouth two times a day. dulaglutide 1.5 mg/0.5 mL pen injector Commonly known as: TRULICITY Inject 1.5 mg subcutaneously one time a week for 28 days. Patient should start on October 18, 2024. DULERA 200-5 mcg/actuation inhaler Generic drug: mometasone-formoterol Inhale 2 Puffs as instructed two times a day. loratadine 10 mg tablet Commonly known as: CLARITIN Take 1 tablet by mouth once daily as needed. FOR ALLERGY SYMPTOMS losartan 25 mg tablet Commonly known as: COZAAR Take 1 tablet by mouth once daily. metFORMIN ER 500 mg 24 hr tablet Commonly known as: GLUCOPHAGE XR Take 2 tablets by mouth daily with dinner. montelukast 10 mg tablet Commonly known as: SINGULAIR Take 1 tablet by mouth daily at bedtime. Nebulizer Accessories Kit Provide 1 kit. omeprazole 20 mg capsule Commonly known as: PriLOSEC TAKE TWO CAPSULES BY MOUTH ONCE DAILY BEFORE BREAKFAST peg 3350-Electrolytes 236-22.74-6.74 -5.86 gram suspension Commonly known as: ZULLY Refer to printed prep instructions from your provider. * PROAIR RESPICLICK 90 mcg/actuation Generic drug: albuterol sulfate Inhale 2 Puffs as instructed every 6 hours as needed. * albuterol 2.5 mg /3 mL (0.083 %) nebulizer solution Commonly known as: PROVENTIL Use 3 mL via nebulizer every 4 hours as needed for wheezing/shortness of breath. Use over 5-15minutes. * albuterol HFA 90 mcg/actuation inhaler Commonly known as: PROVENTIL HFA, VENTOLIN HFA INHALE 2 PUFFS BY MOUTH EVERY 6 HOURS NEEDED FOR SHORTNESS OF BREATH AND WHEEZING * rOPINIRole 1 mg tablet Commonly known as: REQUIP Take 1 tablet by mouth daily at bedtime. * rOPINIRole 0.5 mg tablet Commonly known as: REQUIP Take 1 tablet by mouth daily at bedtime. Take with 1mg tab for total of 1.5mg. SPIRIVA RESPIMAT 1.25 mcg/actuation inhaler Generic drug: tiotropium bromide Inhale 2 puffs as instructed once daily. venlafaxine ER 37.5 mg 24 hr capsule Commonly known as: EFFEXOR XR Take 1 capsule by mouth once daily. VITAMIN B-12 1,000 mcg Tab Generic drug: cyanocobalamin Vitamin D-3 400 unit Tab Generic drug: cholecalciferol * This list has 5 medication(s) that are the same as other medications prescribed for you. Read the directions carefully, and ask your doctor or other care provider to review them with you. DATA: I personally reviewed and analyzed all labs, radiographs and available pulmonary function testing Nitric oxide: PFT: 06/2024 Spirometry reveals a reduced FEV1/FVC with normal FEV1 and FVC values. This could reflect a normal presentation or could indicate mild obstruction. Clinical correlation recommended. The increase in FEF 25-75 post-bronchodilator reflects an improvement in the small airway obstruction. CXR: Last XR Chest - Impression Only XR CHEST 2V FRONTAL/LAT Exam End: 05/23/2024 1:54 PM (Final result) Impression: IMPRESSION: No acute radiographic abnormality. ... Review of Systems Constitutional: Negative for activity change, appetite change, fever and unexpected weight change. HENT: Negative for congestion, mouth sores and postnasal drip. Respiratory: Positive for cough. Negative for chest tightness, shortness of breath and wheezing. Cardiovascular: Negative for chest pain, palpitations and leg swelling. Allergic/Immunologic: Positive for environmental allergies. Neurological: Negative for dizziness and weakness. BP 124/84 Pulse 72 Resp 16 Wt (!) 136.5 kg (301 lb) LMP 12/01/2010 (Exact Date) SpO2 99% BMI 52.65 kg/m? Physical Exam Vitals reviewed. Constitutional: General: She is not in acute distress. Appearance: Normal appearance. She is obese. She is not ill-appearing. HENT: Head: Normocephalic. Mouth/Throat: Mouth: Mucous membranes are moist. Pharynx: No oropharyngeal exudate or posterior oropharyngeal erythema. Cardiovascular: Rate and Rhythm: Normal rate and regular rhythm. Heart sounds: Normal heart sounds. Pulmonary: Effort: Pulmonary effort is normal. No respiratory distress. Breath sounds: No wheezing or rhonchi. Musculoskeletal: Right lower leg: No edema. Left lower leg: No edema. Skin: General: Skin is warm and dry. Capillary Refill: Capillary refill takes less than 2 seconds. Neurological: General: No focal deficit present. Mental Status: She is alert. 1. Moderate persistent asthma without complication ([facility]) (J45.40) Asthma control has improved since the addition of Spiriva to Dulera; FeNO decreased from 42 in June to 12 today. Patient reports a mild, intermittent, productive cough without wheezing, dyspnea, or fever; no recent steroid or antibiotic use. Albuterol inhaler used 2-3 times per week; DuoNeb nebulizer used as needed for cough. - Continue current regimen: Spiriva, Dulera, albuterol inhaler, and DuoNeb as needed. - Advised regular use of Flonase to address potential postnasal drip contributing to cough. - Instructed to report any worsening symptoms or concerns. - Follow-up in 6 months. 2. Environmental allergies (Z91.09) Patient is on Singulair and Flonase for environmental allergies; Flonase is not used consistently. - Advised regular use of Flonase to address potential postnasal drip contributing to cough. 3. Morbid obesity (HCC) (E66.01) - Patient discontinued Trulicity due to adverse GI effects; has follow-up next month to discuss alternative weight management options. - BMI 52 - recommend continued efforts for weight loss. F/u 6 months Portions of this documentation were copied and pasted from previous office visit notes in order to provide a cohesive continuity of the history. The note has been reviewed and edited and updated as necessary. Nenita Woods APRN.DAKOTA I spent a total of 18 minutes on the date of the service which included preparing to see the patient, [id number] patient care, completing clinical documentation, performing a medically appropriate examination, counseling and educating the patient/family/caregiver, and communicating results to the patient/family/caregiver. Nenita Woods APRN.CNP 11/16/2024 10:51 AM Signed We discussed your respiratory health and recent symptoms: - Your nitric oxide level, which measures airway inflammation, has improved significantly from 42 in June to 12 today. This is within the normal range. This indicates good control of your airway inflammation. - You reported a raspy cough that occasionally brings up mucus (sometimes green, sometimes clear). You are not experiencing wheezing, shortness of breath, fevers, chills, or coughing up blood. - Continue using DuoNeb (nebulizer treatment) as needed, especially if the cough persists or worsens. This can help bring up mucus and relieve symptoms. - Use Flonase regularly to address any potential postnasal drainage that may be contributing to your cough. - If your symptoms worsen or do not improve, please let me know so we can consider additional treatment options. We discussed your use of medications and inhalers: - Continue Dulera and Spiriva. - You are using Albuterol as a rescue inhaler 2-3 times per week, which is appropriate. Continue using it as needed. - You are currently taking Singulair and Omeprazole. Continue these medications as prescribed. - You mentioned that you do not use Flonase consistently. I recommend using it regularly to see if it helps with your symptoms. We discussed your weight management and gastrointestinal concerns: - You previously tried a weight loss injection (Trulicity), but it caused significant side effects, including gas, burping, and discomfort. You have stopped this medication and plan to discuss alternative options with your provider next month. Follow-up plan: - Schedule your next visit with me in 6 months for routine follow-up. - If your respiratory symptoms worsen or do not improve, or if you have any new concerns, please contact me sooner. Referring Provider: NENITA WOODS [[id number]] Allergies As of Date: 11/16/2024 Noted Allergy Reaction CATS 2011 7 - Swelling Comments: rash Date Reviewed: 11/16/2024 Reviewed by: Nenita Woods APRN.CNP - Fully Assessed Reason for Visit: Established Patient [175] Cmt: 4 month follow up asthma Primary Visit Diagnosis:Moderate persistent asthma without complication ([facility]) [J45.40] Other Visit Diagnoses:Environmental allergies [Z91.09] Morbid obesity ([facility]) [E66.01] Prescriptions as of 11/16/2024 - buPROPion XL (WELLBUTRIN XL) 300 mg 24 hr tablet Take 1 tablet by mouth once daily. - montelukast (SINGULAIR) 10 mg tablet Take 1 tablet by mouth daily at bedtime. - rOPINIRole (REQUIP) 1 mg tablet Take 1 tablet by mouth daily at bedtime. - rOPINIRole (REQUIP) 0.5 mg tablet Take 1 tablet by mouth daily at bedtime. Take with 1mg tab for total of 1.5mg. - losartan (COZAAR) 25 mg tablet Take 1 tablet by mouth once daily. - peg 3350-Electrolytes (GOLYTELY) 236-22.74-6.74 -5.86 gram suspension Refer to printed prep instructions from your provider. - dulaglutide (TRULICITY) 1.5 mg/0.5 mL pen injector Inject 1.5 mg subcutaneously one time a week for 28 days. Patient should start on October 18, 2024. - omeprazole (PRILOSEC) 20 mg capsule TAKE TWO CAPSULES BY MOUTH ONCE DAILY BEFORE BREAKFAST - diclofenac, EC, (VOLTAREN) 75 mg EC tablet Take 1 tablet by mouth two times a day. - tiotropium bromide (SPIRIVA RESPIMAT) 1.25 mcg/actuation inhaler Inhale 2 puffs as instructed once daily. - venlafaxine ER (EFFEXOR XR) 37.5 mg 24 hr capsule Take 1 capsule by mouth once daily. - metFORMIN ER (GLUCOPHAGE XR) 500 mg 24 hr tablet Take 2 tablets by mouth daily with dinner. - cyanocobalamin (VITAMIN B-12) 1,000 mcg tab Take 1,000 mcg by mouth once daily. - cholecalciferol (VITAMIN D-3) 400 unit tab Take 400 Units by mouth once daily. - mometasone-formoterol (DULERA) 200-5 mcg/actuation inhaler Inhale 2 Puffs as instructed two times a day. - loratadine (CLARITIN) 10 mg tablet Take 1 tablet by mouth once daily as needed. FOR ALLERGY SYMPTOMS - albuterol HFA (PROVENTIL HFA, VENTOLIN HFA) 90 mcg/actuation inhaler INHALE 2 PUFFS BY MOUTH EVERY 6 HOURS NEEDED FOR SHORTNESS OF BREATH AND WHEEZING - Nebulizer Accessories kit Provide 1 kit. - albuterol (PROVENTIL) 2.5 mg /3 mL (0.083 %) nebulizer solution Use 3 mL via nebulizer every 4 hours as needed for wheezing/shortness of breath. Use over 5-15minutes. - ProAir RespiClick 90 mcg/actuation breath activated (albuterol sulfate) Inhale 2 Puffs as instructed every 6 hours as needed. Problem List As Of Date 11/16/2024 Noted Resolved Shortness of breath [R06.02] 01/13/2011 Pneumonia, organism unspecified [J18.9] 07/15/2006 01/13/2011 Acute respiratory failure [J96.00] 07/15/2006 01/13/2011 ACUTE URI NOS [J06.9] 08/07/2007 09/10/2008 Gastroesophageal reflux disease without esophag*09/10/2008 Allergic rhinitis [J30.9] 09/10/2008 Moderate persistent asthma without complication*12/11/2008 Environmental allergies [Z91.09] Obesity, Class III, BMI >= 40 (morbid obesity) *12/03/2016 Irritable mood [R45.4] 03/04/2018 Post menopausal syndrome [N95.1] 03/04/2018 Tonsil asymmetry [J35.8] 03/04/2018 Encounter for screening for diabetes mellitus [*03/04/2018 Well adult exam [Z00.00] 09/01/2018 Medication management [Z79.899] 09/01/2018 Arthritis of knee [M17.10] 10/30/2020 Restless leg syndrome [G25.81] 10/30/2020 COVID-19 virus infection [U07.1] 10/14/2021 Fatty liver [K76.0] 01/04/2022 Liver cyst [K76.89] 01/08/2022 Situational depression [F43.21] 09/28/2022 DRE on CPAP [G47.33] 11/01/2023 Class 3 severe obesity with serious comorbidity*12/21/2023 Hyperinsulinemia [E16.1] 12/21/2023 Acute right-sided thoracic back pain [M54.6] 04/27/2024 Other instructions from your clinician: We discussed your respiratory health and recent symptoms: - Your nitric oxide level, which measures airway inflammation, has improved significantly from 42 in June to 12 today. This is within the normal range. This indicates good control of your airway inflammation. - You reported a raspy cough that occasionally brings up mucus (sometimes green, sometimes clear). You are not experiencing wheezing, shortness of breath, fevers, chills, or coughing up blood. - Continue using DuoNeb (nebulizer treatment) as needed, especially if the cough persists or worsens. This can help bring up mucus and relieve symptoms. - Use Flonase regularly to address any potential postnasal drainage that may be contributing to your cough. - If your symptoms worsen or do not improve, please let me know so we can consider additional treatment options. We discussed your use of medications and inhalers: - Continue Dulera and Spiriva. - You are using Albuterol as a rescue inhaler 2-3 times per week, which is appropriate. Continue using it as needed. - You are currently taking Singulair and Omeprazole. Continue these medications as prescribed. - You mentioned that you do not use Flonase consistently. I recommend using it regularly to see if it helps with your symptoms. We discussed your weight management and gastrointestinal concerns: - You previously tried a weight loss injection (Trulicity), but it caused significant side effects, including gas, burping, and discomfort. You have stopped this medication and plan to discuss alternative options with your provider next month. Follow-up plan: - Schedule your next visit with me in 6 months for routine follow-up. - If your respiratory symptoms worsen or do not improve, or if you have any new concerns, please contact me sooner. Level of Service: OFFICE/OUTPATIENT ESTABLISHED [facility] 10 MIN [[id number]] Additional E/M codes: VISIT CPLX INHERENT EANDM ASSOC WITH MED * Disposition: Return in about 6 months (around 05/16/2025). Follow-up and Disposition History for Encounter Date Provider Department Center 11/16/2024 [id number] WOODS Encounter Status:Closed by NENITA WOODS on 11/16/24 PROCEDURE Observed: 11/16/2024 10:15 AM Status: COMPLETED Source: [facility] HNO ID: [id number] Author: ONESIMO CROSS RPFT Service: ? Author Type: Respiratory Therapist Type: Procedures Filed: 11/16/2024 10:15 Note Text: RESPIRATORY THERAPY ORAL EXHALED NITRIC OXIDE SERVICE DATE: 11/16/2024 SERVICE TIME: 10:15 AM Oral Exhaled Nitric Oxide measurement: 12.0 (ppb) Normal: Adult <25 ppb, pediatric (<12 years) <20 ppb High Normal / Increased: Adult 25-50 ppb, pediatric (<12 years) 20-35 ppb Moderately raised exhaled Nitric Oxide may indicate underlying inflammation, but note that: Cold and influenza can raise exhaled Nitric Oxide and some patients have higher baseline exhaled Nitric Oxide levels than others. High: Adult >50 ppb, pediatric (<12 years) >35 ppb Indicative of ongoing eosinophilic inflammation. Symptomatic patient likely to respond to steroids. Possible causes (if already on steroids): Poor compliance, recent allergen exposure, steroid dose inadequate, and steroid resistance. Note that not all patients with high exhaled nitric oxide levels display symptoms. Oral Exhaled Nitric Oxide measurement (Previous Encounters) Test Date Oral Exhaled Nitric Oxide (ppb) 11/16/2024 12.0 07/17/2024 42.0 (A) 12/08/2022 17.0 05/04/2022 28.0 04/18/2020 35.0 09/08/2018 23.0 09/22/2017 27.0 12/03/2016 34.0 10/01/2016 149.0 (A) NAME: HERVE Reynoso PATIENT NAME: Cinthya Bone DATE: November 16, 2024 TIME: 10:15 AM CNPN Observed: 11/09/2024 12:00 AM Status: COMPLETED Source: [facility] Telephone ([facility]) CINTHYA BONE ([id number]) 1970 F NFR Date Time Provider Department 11/09/24 ANGELIC WONG During your visit today, we recorded the following information about you: Hanane Delaney 11/09/2024 8:51 AM Signed Patient calling in asking if her referral for pain management can be sent over to [facility]. Please process for patient. Hanane Corriganstrom November 09, 2024 8:51 AM Jennifer Benoit MA 11/09/2024 9:16 AM Signed Referral along with facesheet, office notes and x-ray reports sent to Dr. Angel's office electronically. Allergies As of Date: 11/09/2024 Noted Allergy Reaction CATS 2011 7 - Swelling Comments: rash Date Reviewed: 10/24/2024 Reviewed by: Efrain Wright MA - Fully Assessed Reason for Visit: Consult [502] Prescriptions as of 11/09/2024 - rOPINIRole (REQUIP) 1 mg tablet Take 1 tablet by mouth daily at bedtime. - rOPINIRole (REQUIP) 0.5 mg tablet Take 1 tablet by mouth daily at bedtime. Take with 1mg tab for total of 1.5mg. - losartan (COZAAR) 25 mg tablet Take 1 tablet by mouth once daily. - peg 3350-Electrolytes (GOLYTELY) 236-22.74-6.74 -5.86 gram suspension Refer to printed prep instructions from your provider. - dulaglutide (TRULICITY) 1.5 mg/0.5 mL pen injector Inject 1.5 mg subcutaneously one time a week for 28 days. Patient should start on October 18, 2024. - omeprazole (PRILOSEC) 20 mg capsule TAKE TWO CAPSULES BY MOUTH ONCE DAILY BEFORE BREAKFAST - diclofenac, EC, (VOLTAREN) 75 mg EC tablet Take 1 tablet by mouth two times a day. - montelukast (SINGULAIR) 10 mg tablet TAKE 1 TABLET BY MOUTH ONCE DAILY AT BEDTIME - tiotropium bromide (SPIRIVA RESPIMAT) 1.25 mcg/actuation inhaler Inhale 2 puffs as instructed once daily. - venlafaxine ER (EFFEXOR XR) 37.5 mg 24 hr capsule Take 1 capsule by mouth once daily. - metFORMIN ER (GLUCOPHAGE XR) 500 mg 24 hr tablet Take 2 tablets by mouth daily with dinner. - buPROPion XL (WELLBUTRIN XL) 300 mg 24 hr tablet Take 1 tablet by mouth once daily. - cyanocobalamin (VITAMIN B-12) 1,000 mcg tab Take 1,000 mcg by mouth once daily. - cholecalciferol (VITAMIN D-3) 400 unit tab Take 400 Units by mouth once daily. - mometasone-formoterol (DULERA) 200-5 mcg/actuation inhaler Inhale 2 Puffs as instructed two times a day. - loratadine (CLARITIN) 10 mg tablet Take 1 tablet by mouth once daily as needed. FOR ALLERGY SYMPTOMS - albuterol HFA (PROVENTIL HFA, VENTOLIN HFA) 90 mcg/actuation inhaler INHALE 2 PUFFS BY MOUTH EVERY 6 HOURS NEEDED FOR SHORTNESS OF BREATH AND WHEEZING - Nebulizer Accessories kit Provide 1 kit. - albuterol (PROVENTIL) 2.5 mg /3 mL (0.083 %) nebulizer solution Use 3 mL via nebulizer every 4 hours as needed for wheezing/shortness of breath. Use over 5-15minutes. - ProAir RespiClick 90 mcg/actuation breath activated (albuterol sulfate) Inhale 2 Puffs as instructed every 6 hours as needed. Problem List As Of Date 11/09/2024 Noted Resolved Shortness of breath [R06.02] 01/13/2011 Pneumonia, organism unspecified [J18.9] 07/15/2006 01/13/2011 Acute respiratory failure [J96.00] 07/15/2006 01/13/2011 ACUTE URI NOS [J06.9] 08/07/2007 09/10/2008 Gastroesophageal reflux disease without esophag*09/10/2008 Allergic rhinitis [J30.9] 09/10/2008 Moderate persistent asthma without complication*12/11/2008 Environmental allergies [Z91.09] Obesity, Class III, BMI >= 40 (morbid obesity) *12/03/2016 Irritable mood [R45.4] 03/04/2018 Post menopausal syndrome [N95.1] 03/04/2018 Tonsil asymmetry [J35.8] 03/04/2018 Encounter for screening for diabetes mellitus [*03/04/2018 Well adult exam [Z00.00] 09/01/2018 Medication management [Z79.899] 09/01/2018 Arthritis of knee [M17.10] 10/30/2020 Restless leg syndrome [G25.81] 10/30/2020 COVID-19 virus infection [U07.1] 10/14/2021 Fatty liver [K76.0] 01/04/2022 Liver cyst [K76.89] 01/08/2022 Situational depression [F43.21] 09/28/2022 DRE on CPAP [G47.33] 11/01/2023 Class 3 severe obesity with serious comorbidity*12/21/2023 Hyperinsulinemia [E16.1] 12/21/2023 Acute right-sided thoracic back pain [M54.6] 04/27/2024 Encounter Status:Closed by JENNIFER BENOIT on 11/09/24 KEVIN Observed: 10/29/2024 12:00 AM Status: COMPLETED Source: [facility] Telephone ([facility]) CINTHYA BONE ([id number]) 1970 F NFR Date Time Provider Department 10/29/24 MINA MAHER During your visit today, we recorded the following information about you: Sultana Delgado LPN 10/29/2024 8:23 AM Signed Patient called into office requesting order for walker with seat. Patient requests order to be sent to [facility]. ANUJ Larios Amy M, MA 10/31/2024 2:36 PM Signed Just need the order. We will fax it to [employer]. Jennifer Benoit MA 11/07/2024 10:10 AM Signed Order faxed to [facility]. Patient notified. Allergies As of Date: 10/29/2024 Noted Allergy Reaction CATS 2011 7 - Swelling Comments: rash Date Reviewed: 10/24/2024 Reviewed by: Efrain Wright MA - Fully Assessed Reason for Visit: Orders [681] Primary Visit Diagnosis:Primary osteoarthritis of both knees [M17.0] Other Visit Diagnosis:Chronic pain of both knees [M25.561, M25.562, G89.29] Prescriptions as of 11/07/2024 - rOPINIRole (REQUIP) 1 mg tablet Take 1 tablet by mouth daily at bedtime. - rOPINIRole (REQUIP) 0.5 mg tablet Take 1 tablet by mouth daily at bedtime. Take with 1mg tab for total of 1.5mg. - losartan (COZAAR) 25 mg tablet Take 1 tablet by mouth once daily. - peg 3350-Electrolytes (GOLYTELY) 236-22.74-6.74 -5.86 gram suspension Refer to printed prep instructions from your provider. - dulaglutide (TRULICITY) 1.5 mg/0.5 mL pen injector Inject 1.5 mg subcutaneously one time a week for 28 days. Patient should start on October 18, 2024. - omeprazole (PRILOSEC) 20 mg capsule TAKE TWO CAPSULES BY MOUTH ONCE DAILY BEFORE BREAKFAST - diclofenac, EC, (VOLTAREN) 75 mg EC tablet Take 1 tablet by mouth two times a day. - montelukast (SINGULAIR) 10 mg tablet TAKE 1 TABLET BY MOUTH ONCE DAILY AT BEDTIME - tiotropium bromide (SPIRIVA RESPIMAT) 1.25 mcg/actuation inhaler Inhale 2 puffs as instructed once daily. - venlafaxine ER (EFFEXOR XR) 37.5 mg 24 hr capsule Take 1 capsule by mouth once daily. - metFORMIN ER (GLUCOPHAGE XR) 500 mg 24 hr tablet Take 2 tablets by mouth daily with dinner. - buPROPion XL (WELLBUTRIN XL) 300 mg 24 hr tablet Take 1 tablet by mouth once daily. - cyanocobalamin (VITAMIN B-12) 1,000 mcg tab Take 1,000 mcg by mouth once daily. - cholecalciferol (VITAMIN D-3) 400 unit tab Take 400 Units by mouth once daily. - mometasone-formoterol (DULERA) 200-5 mcg/actuation inhaler Inhale 2 Puffs as instructed two times a day. - loratadine (CLARITIN) 10 mg tablet Take 1 tablet by mouth once daily as needed. FOR ALLERGY SYMPTOMS - albuterol HFA (PROVENTIL HFA, VENTOLIN HFA) 90 mcg/actuation inhaler INHALE 2 PUFFS BY MOUTH EVERY 6 HOURS NEEDED FOR SHORTNESS OF BREATH AND WHEEZING - Nebulizer Accessories kit Provide 1 kit. - albuterol (PROVENTIL) 2.5 mg /3 mL (0.083 %) nebulizer solution Use 3 mL via nebulizer every 4 hours as needed for wheezing/shortness of breath. Use over 5-15minutes. - ProAir RespiClick 90 mcg/actuation breath activated (albuterol sulfate) Inhale 2 Puffs as instructed every 6 hours as needed. Problem List As Of Date 10/29/2024 Noted Resolved Shortness of breath [R06.02] 01/13/2011 Pneumonia, organism unspecified [J18.9] 07/15/2006 01/13/2011 Acute respiratory failure [J96.00] 07/15/2006 01/13/2011 ACUTE URI NOS [J06.9] 08/07/2007 09/10/2008 Gastroesophageal reflux disease without esophag*09/10/2008 Allergic rhinitis [J30.9] 09/10/2008 Moderate persistent asthma without complication*12/11/2008 Environmental allergies [Z91.09] Obesity, Class III, BMI >= 40 (morbid obesity) *12/03/2016 Irritable mood [R45.4] 03/04/2018 Post menopausal syndrome [N95.1] 03/04/2018 Tonsil asymmetry [J35.8] 03/04/2018 Encounter for screening for diabetes mellitus [*03/04/2018 Well adult exam [Z00.00] 09/01/2018 Medication management [Z79.899] 09/01/2018 Arthritis of knee [M17.10] 10/30/2020 Restless leg syndrome [G25.81] 10/30/2020 COVID-19 virus infection [U07.1] 10/14/2021 Fatty liver [K76.0] 01/04/2022 Liver cyst [K76.89] 01/08/2022 Situational depression [F43.21] 09/28/2022 DRE on CPAP [G47.33] 11/01/2023 Class 3 severe obesity with serious comorbidity*12/21/2023 Hyperinsulinemia [E16.1] 12/21/2023 Acute right-sided thoracic back pain [M54.6] 04/27/2024 Encounter Status:Closed by JENNIFER BENOIT on 11/07/24 DERRICK Observed: 10/24/2024 2:00 PM Status: COMPLETED Source: [facility] CINTHYA BONE ([id number]) 1970 F NFR Date Time Provider Department 10/24/24 2:00 PM [facility] During your visit today, we recorded the following information about you: Pulse Blood pressure Weight 87/minute 124/79 139 kg Juan C Lopez, [employer]IN[employer] 10/24/2024 2:52 PM Signed Chief Complaint Patient presents with: Physical HPI Cinthya Bone is a 53 year old female who presents here today for Above Complaints.. States that she has been having increased blood pressure at home 140-160/80-100. Checks it twice a day. Denies CP, headaches, edema, Shortness of Breath, palpitations. GERD- states that it has been over a month since she last had GERD symptoms. Takes Prilosec. Asthma/allergies- Follows with Pulmonology Past medical history, appointments, medications, allergies reviewed. Previous Medical History PAST MEDICAL HISTORY Diagnosis Date Allergic rhinitis, cause unspecified 09/10/2008 Arthritis Arthritis of knee 10/30/2020 Asthma Benign neoplasm of left breast 2019 COVID-19 virus infection 10/14/2021 10/14/2021 Environmental allergies Never formally tested. Sneezes, itches around cats. Excessive or frequent menstruation Heavy periods Fatty liver 01/04/2022 Noted on US 12/2021 Gastroesophageal reflux disease without esophagitis 09/10/2008 Hemorrhage of gastrointestinal tract, unspecified 05/10/2014 Irregular menstrual cycle Irregular periods Liver cyst 01/08/2022 MRI: 12/2021 Mild persistent asthma without complication (HCC) 12/11/2008 Obesity, Class III, BMI >= 40 (morbid obesity) E66.01 12/03/2016 Pneumonia 2008 Required intubation Restless leg syndrome 10/30/2020 Shortness of breath 2006 Was on a ventolator with pneumonia Situational depression 09/28/2022 Tonsil asymmetry 03/04/2018 Lt at 2+ Rt normal. chronic Well adult exam 09/01/2018 Done 10/30/2020 Previous Surgical History PAST SURGICAL HISTORY Procedure Laterality Date COLONOSCOPY FLX DX W/COLLJ SPEC WHEN PFRMD 05/10/2014 Colonoscopy EXC BREAST LES PREOP PLMT RAD MARKER OPEN 1 LES Left 01/05/2019 HYSTEROSCOPY, DIAGNOSTIC (SEPARATE 06/2010 Hysteroscopy AND curettage INCISE FINGER TENDON SHEATH Right 06/04/2020 Right ring trigger finger LIG/TRNSXJ FLP TUBE ABDL/VAG APPR UNI/BI Tubal ligation VAGINAL HYSTERECTOMY UTERUS 250 GM/< 12/08/2010 TVH Family History FAMILY HISTORY Problem Relation Age of Onset Obesity Mother Cancer Father Stomach Heart Attack Brother 52 Obesity Brother Hypertension Brother Obesity Maternal Grandmother Obesity Maternal Grandfather Heart Paternal Grandmother COPD Paternal Grandmother Emphysema. Smoker. Obesity Paternal Grandmother Obesity Paternal Grandfather Asthma Son Breast Cancer Paternal Aunt Diabetes Paternal Aunt Patient Allergies ALLERGIES Allergen Reactions Cats Swelling rash Current Medications Current Outpatient Medications on File Prior to Visit Medication Sig dulaglutide (TRULICITY) 1.5 mg/0.5 mL pen injector Inject 1.5 mg subcutaneously one time a week for 28 days. Patient should start on October 18, 2024. omeprazole (PRILOSEC) 20 mg capsule TAKE TWO CAPSULES BY MOUTH ONCE DAILY BEFORE BREAKFAST diclofenac, EC, (VOLTAREN) 75 mg EC tablet Take 1 tablet by mouth two times a day. montelukast (SINGULAIR) 10 mg tablet TAKE 1 TABLET BY MOUTH ONCE DAILY AT BEDTIME tiotropium bromide (SPIRIVA RESPIMAT) 1.25 mcg/actuation inhaler Inhale 2 puffs as instructed once daily. venlafaxine ER (EFFEXOR XR) 37.5 mg 24 hr capsule Take 1 capsule by mouth once daily. metFORMIN ER (GLUCOPHAGE XR) 500 mg 24 hr tablet Take 2 tablets by mouth daily with dinner. rOPINIRole (REQUIP) 0.5 mg tablet Take 1 tablet by mouth daily at bedtime. Take with 1mg tab for total of 1.5mg. rOPINIRole (REQUIP) 1 mg tablet Take 1 tablet by mouth daily at bedtime. cyclobenzaprine (FLEXERIL) 10 mg tablet Take 1 tablet by mouth three times a day as needed for muscle spasm. buPROPion XL (WELLBUTRIN XL) 300 mg 24 hr tablet Take 1 tablet by mouth once daily. cyanocobalamin (VITAMIN B-12) 1,000 mcg tab Take 1,000 mcg by mouth once daily. cholecalciferol (VITAMIN D-3) 400 unit tab Take 400 Units by mouth once daily. mometasone-formoterol (DULERA) 200-5 mcg/actuation inhaler Inhale 2 Puffs as instructed two times a day. loratadine (CLARITIN) 10 mg tablet Take 1 tablet by mouth once daily as needed. FOR ALLERGY SYMPTOMS albuterol HFA (PROVENTIL HFA, VENTOLIN HFA) 90 mcg/actuation inhaler INHALE 2 PUFFS BY MOUTH EVERY 6 HOURS NEEDED FOR SHORTNESS OF BREATH AND WHEEZING Nebulizer Accessories kit Provide 1 kit. albuterol (PROVENTIL) 2.5 mg /3 mL (0.083 %) nebulizer solution Use 3 mL via nebulizer every 4 hours as needed for wheezing/shortness of breath. Use over 5-15minutes. promethazine (PHENERGAN) 25 mg tablet Take 1 tablet by mouth every 6 hours as needed. ProAir RespiClick 90 mcg/actuation breath activated (albuterol sulfate) Inhale 2 Puffs as instructed every 6 hours as needed. No current facility-administered medications on file prior to visit. Social History SOCIAL HISTORY[1] Review of Symptoms REVIEW OF SYSTEMS SEE HPI EXAM: BP 124/79 Pulse 87 Wt (!) 139 kg (306 lb 7 oz) LMP 12/01/2010 (Exact Date) BMI 53.60 kg/m? General Appearance: Well appearing, alert, in no acute distress, well-hydrated, well nourished.. Skin: Skin color, texture, turgor normal, no suspicious rashes or lesions. Head: Normocephalic, no masses, lesions, tenderness or abnormalities. Lungs: Lungs clear to auscultation. No wheezing, rhonchi, rales.. Heart: RRR without murmur, gallop, or rubs. No ectopy. Abdomen: Normal abdominal exam, Abdomen soft, non-tender. Bowel sounds normal. No masses, organomegaly. Peripheral Pulses: Normal. Neurologic: Gait normal. Sensation grossly intact. Health Maintenance List Anxiety Screening Never done Shingrix Vaccine(1 of 2) Never done DTaP,Tdap,Td Vaccine(3 - Td or Tdap) due on 03/11/2023 Colorectal Cancer Screening due on 05/10/2024 Influenza Vaccine(1) due on 10/22/2024 Mammogram Screening due on 09/24/2025 Annual PCP Team Chronic Disease Visit due on 10/09/2025 Diabetes Screening due on 10/10/2027 Lipid Screening due on 10/09/2029 Hepatitis B Vaccine Completed Hepatitis C Screening Completed Pneumococcal Vaccine: 50+ Completed Cervical Cancer Screening Discontinued HIV Screening Discontinued Data reviewed Latest Ref Rng 10/09/2024 WBC 3.70 - 11.00 k/uL 8.00 RBC 3.90 - 5.20 m/uL 4.77 Hemoglobin 11.5 - 15.5 g/dL 12.9 Hematocrit 36.0 - 46.0 % 40.5 MCV 80.0 - 100.0 fL 84.9 MCH 26.0 - 34.0 pg 27.0 MCHC 30.5 - 36.0 g/dL 31.9 RDW-CV 11.5 - 15.0 % 13.8 Platelet Count 150 - 400 k/uL 371 MPV 9.0 - 12.7 fL 11.3 Neut% % 61.4 Abs Neut (ANC) 1.45 - 7.50 k/uL 4.91 Lymph% % 23.5 Abs Lymph 1.00 - 4.00 k/uL 1.88 Jefferson% % 8.1 Abs Jefferson <0.87 k/uL 0.65 Eosin% % 5.0 Abs Eosin <0.46 k/uL 0.40 Baso% % 1.4 Abs Baso <0.11 k/uL 0.11 (H) Immature Gran % % 0.6 IMMATURE GRANS (ABS) <0.10 k/uL 0.05 NRBC /100 WBC 0.0 Absolute nRBC <0.01 k/uL <0.01 DTYPE Auto Protein, Total 6.3 - 8.0 g/dL 7.1 Albumin 3.9 - 4.9 g/dL 4.3 Calcium 8.5 - 10.2 mg/dL 10.0 Bilirubin, Total 0.2 - 1.3 mg/dL 0.2 Alkaline Phosphatase 34 - 123 U/L 60 AST 13 - 35 U/L 19 ALT 7 - 38 U/L 30 Glucose 74 - 99 mg/dL 85 BUN 7 - 21 mg/dL 10 Creatinine 0.58 - 0.96 mg/dL 0.90 Sodium 136 - 144 mmol/L 138 Potassium 3.7 - 5.1 mmol/L 4.5 Chloride 98 - 107 mmol/L 102 CO2 22 - 30 mmol/L 24 Anion Gap 8 - 15 mmol/L 12 eGFR >=60 mL/min/1.73m? 78 Total Cholesterol, Nonfasting <200 mg/dL 191 Triglycerides, Nonfasting <150 mg/dL 213 (H) HDL Cholesterol, Nonfasting >39 mg/dL 53 LDL Cholesterol Calculated, Nonfasting <100 mg/dL 102 (H) Non HDL Cholesterol, Nonfasting <130 mg/dL 138 (H) VLDL Cholesterol, Nonfasting <30 mg/dL 35 (H) Total Chol/HDL Ratio, Nonfasting <5.10 mg/dL 3.60 LDL/HDL Ratio, Nonfasting <2.54 mg/dL 1.92 Hemoglobin A1C 4.3 - 5.6 % 5.2 Estimated Average Glucose mg/dL 103 Vitamin D 25 Hydroxy 31.0 - 80.0 ng/mL 43.6 TSH 0.270 - 4.200 mIU/L 4.040 Vitamin B12 232 - 1,245 pg/mL 1,235 Magnesium 1.7 - 2.3 mg/dL 2.0 ASSESSMENT/PLAN: 1. Well adult exam - ICD9: V70.0, ICD10: Z00.00 (primary diagnosis) - Counseled on healthy diet and regular exercise - Discussed need and benefit for weight loss. BMI 53.60 kg/(m2) - Follow up for annual exam in one year 2. Restless leg syndrome - ICD9: 333.94, ICD10: G25.81 - ROPINIROLE 1 MG TABLET - ROPINIROLE 0.5 MG TABLET 3. Encounter for screening examination for other mental health and behavioral disorders - ICD9: V79.8, ICD10: Z13.39 - ANXIETY SCREENING 4. Elevated BP without diagnosis of hypertension - ICD9: 796.2, ICD10: R03.0 Likely PreHypertension - Encouraged dietary sodium restriction/DASH diet - Recommended regular aerobic exercise. - Recommend home blood pressure monitoring, to bring results in on next visit - Follow up in 1 month for BP recheck. - Goal of BP <130/80 5. Fatty liver - ICD9: 571.8, ICD10: K76.0 -LFT stable 6. Vitamin D deficiency - ICD9: 268.9, ICD10: E55.9 -Normal 7. Gastroesophageal reflux disease without esophagitis - ICD9: 530.81, ICD10: K21.9 - Continue treatment with Prilosec 20 mg QD 8. NADIRA (generalized anxiety disorder) - ICD9: 300.02, ICD10: F41.1 -Continue current medications 9. Moderate persistent asthma without complication (HCC) - ICD9: 493.90, ICD10: J45.40 - Moderate persistent asthma stable - Continue current medications - Avoidance of triggers recommended 10. DRE on CPAP - ICD9: 327.23, ICD10: G47.33 -Wears cpap 11. Environmental allergies - ICD9: V15.09, ICD10: Z91.09 -continue current medications 12. Class 3 severe obesity with serious comorbidity and body mass index (BMI) of 50.0 to 59.9 in adult (HCC) - ICD9: 278.01, V85.43, ICD10: E66.813, Z68.43 Stable 13. Situational depression - ICD9: 309.0, ICD10: F43.21 -Continue current medication 14. Arthritis of knee - ICD9: 716.96, ICD10: M17.10 -Stable 15. Hypertension, essential - ICD9: 401.9, ICD10: I10 - New diagnosis - Continue current medications - Recommend home blood pressure monitoring, to bring results to next visit - Encouraged sodium restriction, DASH or Mediterranean diet - Recommend regular aerobic exercise - Discussed need for and benefit of weight loss. BMI 53.60 kg/(m2) - LOSARTAN 25 MG TABLET Juan C Lopez, CRIMINAL RESEARCHER.COMMERCIAL CRABBER [1] Social History Tobacco Use Smoking status: Never Smokeless tobacco: Never Tobacco comments: ETS exposure: Spouse and son smoke in home. Other family visitors smoke. Parents and Grandparents smoked in childhood home. Vaping Use Vaping status: Never Used Substance Use Topics Alcohol use: Not Currently Comment: social Drug use: Not Currently Allergies As of Date: 10/24/2024 Noted Allergy Reaction CATS 2011 7 - Swelling Comments: rash Date Reviewed: 10/24/2024 Reviewed by: Efrain Wright MA - Fully Assessed Reason for Visit: Physical [83] Primary Visit Diagnosis:Well adult exam [Z00.00] Other Visit Diagnoses:Restless leg syndrome [G25.81] Encounter for screening examination for other mental health and behavioral disorders [Z13.39] Elevated BP without diagnosis of hypertension [R03.0] Fatty liver [K76.0] Vitamin D deficiency [E55.9] Gastroesophageal reflux disease without esophagitis [K21.9] NADIRA (generalized anxiety disorder) [F41.1] Moderate persistent asthma without complication (HCC) [J45.40] DRE on CPAP [G47.33] Environmental allergies [Z91.09] Class 3 severe obesity with serious comorbidity and body mass index (BMI) of 50.0 to 59.9 in adult (HCC) [E66.813, Z68.43] Situational depression [F43.21] Arthritis of knee [M17.10] Hypertension, essential [I10] Screening for colon cancer [Z12.11] Encounter for immunization [Z23] Order(s):rOPINIRole (REQUIP) 1 mg tabletTake 1 tablet by mouth daily at bedtime.Disp: 90 tabletRfl: 1 rOPINIRole (REQUIP) 0.5 mg tabletTake 1 tablet by mouth daily at bedtime. Take with 1mg tab for total of 1.5mg.Disp: 90 tabletRfl: 1 ANXIETY SCREENING [[id number]] Order #: [id number]: 1 losartan (COZAAR) 25 mg tabletTake 1 tablet by mouth once daily.Disp: 30 tabletRfl: 0 COLONOSCOPY SCREENING [GI51] Order #: [id number] FUTURE peg 3350-Electrolytes (GOLYTELY) 236-22.74-6.74 -5.86 gram suspensionRefer to printed prep instructions from your provider.Disp: 4000 mLRfl: 0 TDAP VACCINE, AGE 7+ YR (ADACEL, BOOSTRIX) [90437URP] Order #: [id number] Prescriptions as of 10/24/2024 - rOPINIRole (REQUIP) 1 mg tablet Take 1 tablet by mouth daily at bedtime. - rOPINIRole (REQUIP) 0.5 mg tablet Take 1 tablet by mouth daily at bedtime. Take with 1mg tab for total of 1.5mg. - losartan (COZAAR) 25 mg tablet Take 1 tablet by mouth once daily. - peg 3350-Electrolytes (GOLYTELY) 236-22.74-6.74 -5.86 gram suspension Refer to printed prep instructions from your provider. - dulaglutide (TRULICITY) 1.5 mg/0.5 mL pen injector Inject 1.5 mg subcutaneously one time a week for 28 days. Patient should start on October 18, 2024. - omeprazole (PRILOSEC) 20 mg capsule TAKE TWO CAPSULES BY MOUTH ONCE DAILY BEFORE BREAKFAST - diclofenac, EC, (VOLTAREN) 75 mg EC tablet Take 1 tablet by mouth two times a day. - montelukast (SINGULAIR) 10 mg tablet TAKE 1 TABLET BY MOUTH ONCE DAILY AT BEDTIME - tiotropium bromide (SPIRIVA RESPIMAT) 1.25 mcg/actuation inhaler Inhale 2 puffs as instructed once daily. - venlafaxine ER (EFFEXOR XR) 37.5 mg 24 hr capsule Take 1 capsule by mouth once daily. - metFORMIN ER (GLUCOPHAGE XR) 500 mg 24 hr tablet Take 2 tablets by mouth daily with dinner. - buPROPion XL (WELLBUTRIN XL) 300 mg 24 hr tablet Take 1 tablet by mouth once daily. - cyanocobalamin (VITAMIN B-12) 1,000 mcg tab Take 1,000 mcg by mouth once daily. - cholecalciferol (VITAMIN D-3) 400 unit tab Take 400 Units by mouth once daily. - mometasone-formoterol (DULERA) 200-5 mcg/actuation inhaler Inhale 2 Puffs as instructed two times a day. - loratadine (CLARITIN) 10 mg tablet Take 1 tablet by mouth once daily as needed. FOR ALLERGY SYMPTOMS - albuterol HFA (PROVENTIL HFA, VENTOLIN HFA) 90 mcg/actuation inhaler INHALE 2 PUFFS BY MOUTH EVERY 6 HOURS NEEDED FOR SHORTNESS OF BREATH AND WHEEZING - Nebulizer Accessories kit Provide 1 kit. - albuterol (PROVENTIL) 2.5 mg /3 mL (0.083 %) nebulizer solution Use 3 mL via nebulizer every 4 hours as needed for wheezing/shortness of breath. Use over 5-15minutes. - ProAir RespiClick 90 mcg/actuation breath activated (albuterol sulfate) Inhale 2 Puffs as instructed every 6 hours as needed. Problem List As Of Date 10/24/2024 Noted Resolved Shortness of breath [R06.02] 01/13/2011 Pneumonia, organism unspecified [J18.9] 07/15/2006 01/13/2011 Acute respiratory failure [J96.00] 07/15/2006 01/13/2011 ACUTE URI NOS [J06.9] 08/07/2007 09/10/2008 Gastroesophageal reflux disease without esophag*09/10/2008 Allergic rhinitis [J30.9] 09/10/2008 Moderate persistent asthma without complication*12/11/2008 Environmental allergies [Z91.09] Obesity, Class III, BMI >= 40 (morbid obesity) *12/03/2016 Irritable mood [R45.4] 03/04/2018 Post menopausal syndrome [N95.1] 03/04/2018 Tonsil asymmetry [J35.8] 03/04/2018 Encounter for screening for diabetes mellitus [*03/04/2018 Well adult exam [Z00.00] 09/01/2018 Medication management [Z79.899] 09/01/2018 Arthritis of knee [M17.10] 10/30/2020 Restless leg syndrome [G25.81] 10/30/2020 COVID-19 virus infection [U07.1] 10/14/2021 Fatty liver [K76.0] 01/04/2022 Liver cyst [K76.89] 01/08/2022 Situational depression [F43.21] 09/28/2022 DRE on CPAP [G47.33] 11/01/2023 Class 3 severe obesity with serious comorbidity*12/21/2023 Hyperinsulinemia [E16.1] 12/21/2023 Acute right-sided thoracic back pain [M54.6] 04/27/2024 Prescriptions ordered this encounter Disp Refills Start End ROPINIROLE 1 MG TABLET 90 t* 1 10/24/2024 Route: PO Sig: Take 1 tablet by mouth daily at bedtime. ROPINIROLE 0.5 MG TABLET 90 t* 1 10/24/2024 Route: PO Sig: Take 1 tablet by mouth daily at bedtime. Take with 1mg tab for total of 1.5mg. LOSARTAN 25 MG TABLET 30 t* 0 10/24/2024 Route: PO Sig: Take 1 tablet by mouth once daily. PEG 3350-ELECTROLYTES 236 GRAM-22.74* 4000* 0 10/24/2024 Sig: Refer to printed prep instructions from your provider. Medications Discontinued During This Encounter Prescriptions - rOPINIRole (REQUIP) 0.5 mg tablet (Discontinued) Take 1 tablet by mouth daily at bedtime. Take with 1mg tab for total of 1.5mg. - promethazine (PHENERGAN) 25 mg tablet (Discontinued) Take 1 tablet by mouth every 6 hours as needed. - cyclobenzaprine (FLEXERIL) 10 mg tablet (Discontinued) Take 1 tablet by mouth three times a day as needed for muscle spasm. - rOPINIRole (REQUIP) 1 mg tablet (Discontinued) Take 1 tablet by mouth daily at bedtime. Disposition: Return in about 4 weeks (around 11/21/2024) for BP check. Follow-up and Disposition History for Encounter Date Provider Department Center 10/24/2024 [id number]-DISUUQJUAN C LPOEZ [facility] Encounter Status:Closed by JUAN C LOPEZ on 10/24/24 PROGRESS Observed: 10/24/2024 1:58 PM Status: COMPLETED Source: [facility] ID: [id number] Author: JUAN C LOPEZ APRN.COMMERCIAL CRABBER Service: ? Author Type: Nurse Practitioner Type: Progress Notes Filed: 10/24/2024 14:52 Note Text: Chief Complaint Patient presents with: Physical HPI Cinthya Bone is a 53 year old female who presents here today for Above Complaints.. States that she has been having increased blood pressure at home 140-160/80-100. Checks it twice a day. Denies CP, headaches, edema, Shortness of Breath, palpitations. GERD- states that it has been over a month since she last had GERD symptoms. Takes Prilosec. Asthma/allergies- Follows with Pulmonology Past medical history, appointments, medications, allergies reviewed. Previous Medical History PAST MEDICAL HISTORY Diagnosis Date Allergic rhinitis, cause unspecified 09/10/2008 Arthritis Arthritis of knee 10/30/2020 Asthma Benign neoplasm of left breast 2019 COVID-19 virus infection 10/14/2021 10/14/2021 Environmental allergies Never formally tested. Sneezes, itches around cats. Excessive or frequent menstruation Heavy periods Fatty liver 01/04/2022 Noted on US 12/2021 Gastroesophageal reflux disease without esophagitis 09/10/2008 Hemorrhage of gastrointestinal tract, unspecified 05/10/2014 Irregular menstrual cycle Irregular periods Liver cyst 01/08/2022 MRI: 12/2021 Mild persistent asthma without complication (HCC) 12/11/2008 Obesity, Class III, BMI >= 40 (morbid obesity) E66.01 12/03/2016 Pneumonia 2008 Required intubation Restless leg syndrome 10/30/2020 Shortness of breath 2006 Was on a ventolator with pneumonia Situational depression 09/28/2022 Tonsil asymmetry 03/04/2018 Lt at 2+ Rt normal. chronic Well adult exam 09/01/2018 Done 10/30/2020 Previous Surgical History PAST SURGICAL HISTORY Procedure Laterality Date COLONOSCOPY FLX DX W/COLLJ SPEC WHEN PFRMD 05/10/2014 Colonoscopy EXC BREAST LES PREOP PLMT RAD MARKER OPEN 1 LES Left 01/05/2019 HYSTEROSCOPY, DIAGNOSTIC (SEPARATE 06/2010 Hysteroscopy AND curettage INCISE FINGER TENDON SHEATH Right 06/04/2020 Right ring trigger finger LIG/TRNSXJ FLP TUBE ABDL/VAG APPR UNI/BI Tubal ligation VAGINAL HYSTERECTOMY UTERUS 250 GM/< 12/08/2010 TVH Family History FAMILY HISTORY Problem Relation Age of Onset Obesity Mother Cancer Father Stomach Heart Attack Brother 52 Obesity Brother Hypertension Brother Obesity Maternal Grandmother Obesity Maternal Grandfather Heart Paternal Grandmother COPD Paternal Grandmother Emphysema. Smoker. Obesity Paternal Grandmother Obesity Paternal Grandfather Asthma Son Breast Cancer Paternal Aunt Diabetes Paternal Aunt Patient Allergies ALLERGIES Allergen Reactions Cats Swelling rash Current Medications Current Outpatient Medications on File Prior to Visit Medication Sig dulaglutide (TRULICITY) 1.5 mg/0.5 mL pen injector Inject 1.5 mg subcutaneously one time a week for 28 days. Patient should start on October 18, 2024. omeprazole (PRILOSEC) 20 mg capsule TAKE TWO CAPSULES BY MOUTH ONCE DAILY BEFORE BREAKFAST diclofenac, EC, (VOLTAREN) 75 mg EC tablet Take 1 tablet by mouth two times a day. montelukast (SINGULAIR) 10 mg tablet TAKE 1 TABLET BY MOUTH ONCE DAILY AT BEDTIME tiotropium bromide (SPIRIVA RESPIMAT) 1.25 mcg/actuation inhaler Inhale 2 puffs as instructed once daily. venlafaxine ER (EFFEXOR XR) 37.5 mg 24 hr capsule Take 1 capsule by mouth once daily. metFORMIN ER (GLUCOPHAGE XR) 500 mg 24 hr tablet Take 2 tablets by mouth daily with dinner. rOPINIRole (REQUIP) 0.5 mg tablet Take 1 tablet by mouth daily at bedtime. Take with 1mg tab for total of 1.5mg. rOPINIRole (REQUIP) 1 mg tablet Take 1 tablet by mouth daily at bedtime. cyclobenzaprine (FLEXERIL) 10 mg tablet Take 1 tablet by mouth three times a day as needed for muscle spasm. buPROPion XL (WELLBUTRIN XL) 300 mg 24 hr tablet Take 1 tablet by mouth once daily. cyanocobalamin (VITAMIN B-12) 1,000 mcg tab Take 1,000 mcg by mouth once daily. cholecalciferol (VITAMIN D-3) 400 unit tab Take 400 Units by mouth once daily. mometasone-formoterol (DULERA) 200-5 mcg/actuation inhaler Inhale 2 Puffs as instructed two times a day. loratadine (CLARITIN) 10 mg tablet Take 1 tablet by mouth once daily as needed. FOR ALLERGY SYMPTOMS albuterol HFA (PROVENTIL HFA, VENTOLIN HFA) 90 mcg/actuation inhaler INHALE 2 PUFFS BY MOUTH EVERY 6 HOURS NEEDED FOR SHORTNESS OF BREATH AND WHEEZING Nebulizer Accessories kit Provide 1 kit. albuterol (PROVENTIL) 2.5 mg /3 mL (0.083 %) nebulizer solution Use 3 mL via nebulizer every 4 hours as needed for wheezing/shortness of breath. Use over 5-15minutes. promethazine (PHENERGAN) 25 mg tablet Take 1 tablet by mouth every 6 hours as needed. ProAir RespiClick 90 mcg/actuation breath activated (albuterol sulfate) Inhale 2 Puffs as instructed every 6 hours as needed. No current facility-administered medications on file prior to visit. Social History SOCIAL HISTORY[1] Review of Symptoms REVIEW OF SYSTEMS SEE HPI EXAM: BP 124/79 Pulse 87 Wt (!) 139 kg (306 lb 7 oz) LMP 12/01/2010 (Exact Date) BMI 53.60 kg/m? General Appearance: Well appearing, alert, in no acute distress, well-hydrated, well nourished.. Skin: Skin color, texture, turgor normal, no suspicious rashes or lesions. Head: Normocephalic, no masses, lesions, tenderness or abnormalities. Lungs: Lungs clear to auscultation. No wheezing, rhonchi, rales.. Heart: RRR without murmur, gallop, or rubs. No ectopy. Abdomen: Normal abdominal exam, Abdomen soft, non-tender. Bowel sounds normal. No masses, organomegaly. Peripheral Pulses: Normal. Neurologic: Gait normal. Sensation grossly intact. Health Maintenance List Anxiety Screening Never done Shingrix Vaccine(1 of 2) Never done DTaP,Tdap,Td Vaccine(3 - Td or Tdap) due on 03/11/2023 Colorectal Cancer Screening due on 05/10/2024 Influenza Vaccine(1) due on 10/22/2024 Mammogram Screening due on 09/24/2025 Annual PCP Team Chronic Disease Visit due on 10/09/2025 Diabetes Screening due on 10/10/2027 Lipid Screening due on 10/09/2029 Hepatitis B Vaccine Completed Hepatitis C Screening Completed Pneumococcal Vaccine: 50+ Completed Cervical Cancer Screening Discontinued HIV Screening Discontinued Data reviewed Latest Ref Rng 10/09/2024 WBC 3.70 - 11.00 k/uL 8.00 RBC 3.90 - 5.20 m/uL 4.77 Hemoglobin 11.5 - 15.5 g/dL 12.9 Hematocrit 36.0 - 46.0 % 40.5 MCV 80.0 - 100.0 fL 84.9 MCH 26.0 - 34.0 pg 27.0 MCHC 30.5 - 36.0 g/dL 31.9 RDW-CV 11.5 - 15.0 % 13.8 Platelet Count 150 - 400 k/uL 371 MPV 9.0 - 12.7 fL 11.3 Neut% % 61.4 Abs Neut (ANC) 1.45 - 7.50 k/uL 4.91 Lymph% % 23.5 Abs Lymph 1.00 - 4.00 k/uL 1.88 Jefferson% % 8.1 Abs Jefferson <0.87 k/uL 0.65 Eosin% % 5.0 Abs Eosin <0.46 k/uL 0.40 Baso% % 1.4 Abs Baso <0.11 k/uL 0.11 (H) Immature Gran % % 0.6 IMMATURE GRANS (ABS) <0.10 k/uL 0.05 NRBC /100 WBC 0.0 Absolute nRBC <0.01 k/uL <0.01 DTYPE Auto Protein, Total 6.3 - 8.0 g/dL 7.1 Albumin 3.9 - 4.9 g/dL 4.3 Calcium 8.5 - 10.2 mg/dL 10.0 Bilirubin, Total 0.2 - 1.3 mg/dL 0.2 Alkaline Phosphatase 34 - 123 U/L 60 AST 13 - 35 U/L 19 ALT 7 - 38 U/L 30 Glucose 74 - 99 mg/dL 85 BUN 7 - 21 mg/dL 10 Creatinine 0.58 - 0.96 mg/dL 0.90 Sodium 136 - 144 mmol/L 138 Potassium 3.7 - 5.1 mmol/L 4.5 Chloride 98 - 107 mmol/L 102 CO2 22 - 30 mmol/L 24 Anion Gap 8 - 15 mmol/L 12 eGFR >=60 mL/min/1.73m? 78 Total Cholesterol, Nonfasting <200 mg/dL 191 Triglycerides, Nonfasting <150 mg/dL 213 (H) HDL Cholesterol, Nonfasting >39 mg/dL 53 LDL Cholesterol Calculated, Nonfasting <100 mg/dL 102 (H) Non HDL Cholesterol, Nonfasting <130 mg/dL 138 (H) VLDL Cholesterol, Nonfasting <30 mg/dL 35 (H) Total Chol/HDL Ratio, Nonfasting <5.10 mg/dL 3.60 LDL/HDL Ratio, Nonfasting <2.54 mg/dL 1.92 Hemoglobin A1C 4.3 - 5.6 % 5.2 Estimated Average Glucose mg/dL 103 Vitamin D 25 Hydroxy 31.0 - 80.0 ng/mL 43.6 TSH 0.270 - 4.200 mIU/L 4.040 Vitamin B12 232 - 1,245 pg/mL 1,235 Magnesium 1.7 - 2.3 mg/dL 2.0 ASSESSMENT/PLAN: 1. Well adult exam - ICD9: V70.0, ICD10: Z00.00 (primary diagnosis) - Counseled on healthy diet and regular exercise - Discussed need and benefit for weight loss. BMI 53.60 kg/(m2) - Follow up for annual exam in one year 2. Restless leg syndrome - ICD9: 333.94, ICD10: G25.81 - ROPINIROLE 1 MG TABLET - ROPINIROLE 0.5 MG TABLET 3. Encounter for screening examination for other mental health and behavioral disorders - ICD9: V79.8, ICD10: Z13.39 - ANXIETY SCREENING 4. Elevated BP without diagnosis of hypertension - ICD9: 796.2, ICD10: R03.0 Likely PreHypertension - Encouraged dietary sodium restriction/DASH diet - Recommended regular aerobic exercise. - Recommend home blood pressure monitoring, to bring results in on next visit - Follow up in 1 month for BP recheck. - Goal of BP <130/80 5. Fatty liver - ICD9: 571.8, ICD10: K76.0 -LFT stable 6. Vitamin D deficiency - ICD9: 268.9, ICD10: E55.9 -Normal 7. Gastroesophageal reflux disease without esophagitis - ICD9: 530.81, ICD10: K21.9 - Continue treatment with Prilosec 20 mg QD 8. NADIRA (generalized anxiety disorder) - ICD9: 300.02, ICD10: F41.1 -Continue current medications 9. Moderate persistent asthma without complication (HCC) - ICD9: 493.90, ICD10: J45.40 - Moderate persistent asthma stable - Continue current medications - Avoidance of triggers recommended 10. DRE on CPAP - ICD9: 327.23, ICD10: G47.33 -Wears cpap 11. Environmental allergies - ICD9: V15.09, ICD10: Z91.09 -continue current medications 12. Class 3 severe obesity with serious comorbidity and body mass index (BMI) of 50.0 to 59.9 in adult (HCC) - ICD9: 278.01, V85.43, ICD10: E66.813, Z68.43 Stable 13. Situational depression - ICD9: 309.0, ICD10: F43.21 -Continue current medication 14. Arthritis of knee - ICD9: 716.96, ICD10: M17.10 -Stable 15. Hypertension, essential - ICD9: 401.9, ICD10: I10 - New diagnosis - Continue current medications - Recommend home blood pressure monitoring, to bring results to next visit - Encouraged sodium restriction, DASH or Mediterranean diet - Recommend regular aerobic exercise - Discussed need for and benefit of weight loss. BMI 53.60 kg/(m2) - LOSARTAN 25 MG TABLET Juan C Lopez APRN.COMMERCIAL CRABBER [1] Social History Tobacco Use Smoking status: Never Smokeless tobacco: Never Tobacco comments: ETS exposure: Spouse and son smoke in home. Other family visitors smoke. Parents and Grandparents smoked in childhood home. Vaping Use Vaping status: Never Used Substance Use Topics Alcohol use: Not Currently Comment: social Drug use: Not Currently CNOV Observed: 10/09/2024 11:30 AM Status: COMPLETED Source: [facility] Office Visit (OBGYWM) CINTHYA BONE ([id number]) 1970 F [place] Date Time Provider Department 10/09/24 11:30 AM JENNIFER RATLIFF During your visit today, we recorded the following information about you: Pulse Blood pressure Weight 72/minute 153/84 138.8 kg Jennifer Ratliff APRN.COMMERCIAL CRABBER 10/09/2024 12:07 PM Addendum - Continue taking Trulicity 1.5 mg by subcutaneous injection every Tuesday; your current supply lasts through 10/18. A few weeks before you run out (around 10/31-11/06), send a Xcalar message if you need a refill of the same dose or want to increase/decrease the dose. - Keep taking metformin ER 500 mg once daily with dinner. To boost Trulicity?s effect, you may increase to two tablets at dinner or take one tablet with 2 meals. - For gas, bloating or ?sulfur burps? after your Trulicity shot: - Take an [id number] simethicone product (Gas-X) as needed. - Continue your omeprazole. - For the first two days after each injection, skip eggs (a common sulfur trigger) and use shredded chicken or other protein on your salad instead. - Consider a larger dinner and skip the bedtime shake on injection days if late-night eating worsens symptoms. - Nutrition goals: - Aim for at least 30 grams of protein at each meal. Add shredded chicken breast to salads or use a high-protein low-carb wrap (about 11 g protein each--microwave 10 seconds on a paper towel before filling to prevent tearing). - Use high-protein yogurts for snacks, such as Chobani Zero or Oikos Zero (20 g protein per serving). - Hydration: stick with water or sugar-free beverages; limit carbonated drinks if they worsen bloating. - Physical activity: continue walking around your block and to the bus stop daily, as tolerated. - Sleep apnea: start using your CPAP nightly as soon as your new mask arrives in the next couple of days. - Bariatric surgery option: if you decide to pursue weight-loss surgery, send a Xcalar message to request the referral. You?ll receive a link to watch the required seminar, complete your information, and then be assigned a patient navigator to guide you through the process - Whole food balanced protein, controlled carbohydrate nutrition plan - 30 g of protein 3 times a day and up to 30 g of carbs at lunch and dinner only. 1st meal of the day- 30g protein with limit of 2 gm carbohydrates. Premier Protein or generic 30 gm protein 1 gm sugar 2. 2-3 eggs and some unbreaded meat and/or cheese. 3. 2-3 eggs and 1/2 of protein shake or one of the yogurts below: :ratio, KETO Friendly Dairy Snack 1 single svg - 15g protein AND 2g carb Two Good Lowfat [place] Yogurt, Lower Sugar - 12g protein AND 2g carb No fruit, vegetables, bread, grain, other brands of yogurt, Smoothies, etc. Lunch and dinner - 30 gm protein is the goal with less than 30 gm carbohydrates All snacks and meals - all protein or more protein than carbs Protein - no carbs Egg 1 large - 6g Egg white 1 large 3.6g 3 oz is approximately the size of a deck of cards and equals 21 g protein so 4 oz is 28 gm protein Beef, Chicken, Gail, Pork, Gamble 1 oz 7g Fish, Tuna Fish 1 oz 7g (Starkist tuna packet 2.6 oz 17 gm protein) Seafood (Crabmeat, Shrimp, Lobster) 1 oz 6g Protein shakes (read labels) Premier Protein or generic [employer] Equate, [employer] High Performance- 30g protein AND 2g carb Premier Protein powder or generic- 30 g protein, 1g carb Fairlife 30 gram protein - 30g protein AND 3g carb BOOST Glucose Control Max 30g Protein Nutritional Drink - 30g protein AND 1g carb Nurri 30g protein 2g carb Slimfast High Protein - 20g protein AND 1g carb Ensure Max Protein Nutrition Shake 30g protein AND 2g carb OWYN plant based 100 % vegan no dairy, soy, wheat/gluten 32g protein 0 net carb Premier Protein plant protein powder - 25g protein, 0 sugar/2g carb Vanilla and chocolate Genius Gourmet Sparkling Clear water ([employer]) 30g protein <1 carb Protein AND carbs Beef/Gail Jerky 1 oz dried 10-15g protein - check carb count, can be high if sugar added Slim Nikolay - 6 gm protein and 4 net carb Great Value original turkey sausage sticks - 7 gm protein and 2 gm carb Librado (at [employer]) Original smoked sausage sticks - 8 gm protein and 0 carb Imitation Crab Meat 1 oz - 2g protein AND 4g carb Milk, skim 2% or 1% 8 oz - 8g protein AND 12g carb Fairlife 2% milk 8 oz -13g protein AND 6g carb Moz[place] yogurt Full Fat [place] Yogurt 1 cup - 20.4g protein AND 9.1g carb 2% Moz[place] Yogurt 1 cup - 22.7g protein AND 9.1g carb 0% (fat-free) [place] Yogurt - 1 cup 24g protein AND 9.3g carb Aldi Protein Moz[place] yogurt single svg - 13/g15g protein AND 7g carb Chobani Zero Sugar single svg: - 12g protein AND 5g carb Chobani Zero 20g protein Dannon Moz[place]ican Light + Fit 1 single svg - 12g protein AND 9g carb Oikos Pro single svg - 20g protein AND 8g carb Oikos Triple Zero [place] Nonfat Yogurt 1 single svg - 15g protein AND 7g carb :ratio, KETO Friendly Dairy Snack 1 single svg - 15g protein AND 2g carb :ratio Protein 1 single svg - 25g protein AND 8g carb Two Good Lowfat [place] Yogurt, [place], Lower Sugar - 12g protein AND 2g carb Yoplait Protein 1 single svg 15g protein AND 5g carb Dairy Free - [place] unsweetened [place] almond/soy 15g protein AND 3g carb Dairy Free - True Goodness by Nestor coconut-based yogurt alternative 1 g protein 1 g net carb 180 uma Drinkable yogurts: Chobani drinkable 15g, 20g and 30g protein AND 18 carb (too many carbs for breakfast) Chobani Zero Sugar 10g protein 6g carbs 50 calories Oikos Pro drinkable yogurt 1 single svg - 23g protein AND 8g carb :ratio Protein 26g protein 9g carb Cheese each oz Brie 5.9g protein AND 0.1g carb Cheddar 7g protein AND 0.4g carb Addison 6.7g protein AND 0.7g carb Cream Cheese 1.7g protein AND 1.2g carb [employer] whipped [place] cream cheese (WM) 2 T 3g protein 2g carb Feta 4g protein AND 1.2g carb Mozzarella 6.3g protein AND 0.6g carb Parmesan 10g protein AND 0.9g carb Eritrean 7.6g protein AND 1.5g carb Cottage Cheese 1/2 c Breakstone 2% 13g protein 7g carb Lorrie 2% 13g protein 5 g carb Good Culture 2% 14g protein 3g carb Lactaid 13g protein 5g carb Delgado?s Low Fat 12g protein AND 4g carb Legumes Lentils ? cup 9g protein AND 20g carb [place] beans ? cup 7g protein AND 20g carb Kidney, Black, [place], Cannellini beans ? cup 8g protein AND 20g carb Chickpeas 1/2 c 6g protein AND 15g carb Soybeans 1/2 c 14g complete protein AND 8.5g carb [place] milk, unsweetened 8 oz 1g protein AND 2g carb Soy milk 8 oz 3.5g protein AND 1.6g carb Tofu 1/2 cup 10g protein AND 2.3g carb Peanut butter, natural 2 Tbsp 7-8g protein AND 4g net carbs, 190 calories PB2 powder 2 Tbsp 6g protein AND 5g carb Nuts and Seeds per oz Almonds - 5.9g protein AND 6.1g carb [place] Nuts - 4.0g protein AND 3.4g carb Cashews - 5.1g protein AND 9.2g carb Hazelnuts - 4.2g protein AND 4.7g carb Hemp seeds/hearts 3 T/30 gms - 9.5 gm complete protein and 2.5 gm carb Peanuts - 7g protein AND 4.6g carb Pecans - 2.6g protein AND 3.9g carb Pistachios - 5.8g protein AND 7.8g carb Pumpkin Seeds - 6.9g protein AND 5g carb [place] Seeds - 5.8g protein AND 5.6g carb Walnuts - 4.3g protein AND 3.8g carb Edamame Beans (soybean) snack 1 pack 11 gm complete protein 2 carb 5 (FIVE) gram carb vegetable options 1 cup raw OR ? cup cooked: Asparagus [place] sprouts Beets Broccoli Brussel sprouts Cabbage Carrots Cauliflower Celery [place] Eggplant Green beans Lettuce Peppers Snap peas Spaghetti squash Spinach Tomato Turnips Zucchini 15 gram carb vegetable options ? cup cooked corn or hominy ? corn on the cob, large (5 oz) ? cup cooked green peas 4.3 gm complete protein ? cup cooked cortes beans 1 small potato or sweet potato ? cup cooked potato, plain ? cup cooked sweet potato, plain 1 cup winter squash (pumpkin, acorn, butternut) 1 cup marinara or pasta sauce - check label ? cup tomato juice ? cup tomato puree Beans, Seeds, Nuts ? cup cooked beans (kidney, bryant, red, green, etc.) ? cup cooked lentils ? cup baked beans 4 tablespoons nut butter <15 gram carb fruit options Berries have the lowest sugar content 1/2 medium apple - 12.5 carbs 1/2 medium avocado - 6.5 gm carbs 1/2 medium banana - 15 carbs 1/2 cup blueberries - 11 carbs - may actually help you lose weight 1/2 cup fresh cherries -11 carbs 1 medium Nicolette -9 carbs 1/2 cup fresh cranberries - 6.5 carbs 1 [place] date - 15-18 carbs 1/2 c grapes - 15 carbs 1/2 medium grapefruit - 10.5 carbs 1/2 cup diced honeydew melon - 8 carbs 1 medium kiwi without skin - 11 carbs 1/2 cup sliced lynda -14 carbs 1 medium nectarine - 15 carbs 1 medium orange -15.5 carbs 1 medium peach -14.5 carbs 1/2 cup fresh pineapple -11 carbs 1 medium plum -7.5 carbs 1 prune - 6 carbs 1/4 c raisins - 31.25 carbs 1/2 cup raspberries -7.5 carbs 1/2 c strawberries - 12.7 carbs 1 medium tangerine -12 carbs 1/2 cup diced watermelon - 6 carbs Grains Brown rice 1/2 c 5.5g protein 24 carb White long-grain rice 1/2 c 2g protein 22.5 carb Quinoa 1/2 c 4 gm complete protein 25 carb Oatmeal, old fashioned 1/2 c 5g protein 27g carb High Protein Snack Ideas 1. Jerky 2. [place] mix without dried fruit 3. Gail roll-ups 4. Moz[place] yogurt 5. Veggies and yogurt dip 6. Tuna 7. Hard-boiled eggs 8. Peanut butter with celery 9. Cheese slices/ Cheese Stick 10. Handful of almonds, peanuts or walnuts 11. Cottage Cheese 12. Beef sticks 13. Protein bars 14. Canned [place] 15. Pumpkin seeds 16. Nut butter 17. Protein shake or protein bar 18. Avocado and chicken salad 19. Egg muffins 20. Leftover protein or lunch meat 21. 1/2 c blended cottage cheese or [place]amb[place] yogurt with dry ranch/Mrs. Dash/herb seasoning mix to make protein dip- add raw veg 22. 1/2 c blended cottage cheese with 1 Tbsp sugar-free dry cheesecake pudding mix 12g protein 10 carb 23. Pudding - 1 30 gm protein shake with 1/2 pkg sugar-free pudding 4 svgs - 7.8 gm protein, 5 carb each svg 24. SF Sunkist or Root Beer with 1-2 Tablespoons heavy whipping cream 25. Mini frozen dessert bites - layer protein yogurt, skinny syrup and crushed nuts and freeze 26. Edamame Beans (soybean) snack 1 pack (O Beans) 11 gm complete protein 2 carb Why Is Protein So Important for Weight loss? consuming more protein not only reduces body weight but enhances body composition by decreasing fat mass while preserving fat-free mass During weight loss phase protein consumption (with normal kidney function) should be 1-1.6g protein per Kilogram of body weight (1kg=2.2lbs) On average Women need to Aim for a minimum 90g protein per day Consuming higher protein can also prevent weight regain after weight loss Protein consumption increases hormones responsible for satiety (feeling full)- these include Gut hormones like Glucagon-like peptide-1 (GLP-1), Cholecystokinin (CCK), Peptide Tyrosine-Tyrosine (PYY) and decreasing the Gut hormone responsible for causing hunger Ghrelin Protein has an increased thermogenesis effect of food- which means it take more calories to break down protein when consumed compared to carbohydrates or fats Protein also prevents a losing lean mass during weight loss (lose more fat and preserve fat free mass) which helps to increase resting energy expenditure (resting metabolic rate) Every pound of muscle baker ~ 6 kcal per pound/day vs fat baker ~ 2kcal per pound/day Carbohydrates - Why do You Crave Them? Eating too many refined carbohyrdates (sugar beverages, pastries, bread, pizza) which raises your blood glucose levels and therefore releasing insulin which in turn causes increase in hunger Carbohydrates suppress Ghrelin quickly but does not maintain the suppression for very long therefore hunger returns more quickly Consuming carbohydrates leads to a release of Dopamine ?feel good hormone? in our brain So how do you Curb these cravings? Eating Whole Foods with more fiber - High fiber carbs are absorbed and digested slowly so it does not impact blood sugar levels as much and will help in making you feel hanson for longer; fiber also is healthy for your gut bacteria and can help with constipation. Remember- carbohydrates are not the enemy but know what a proper serving size is, choose nutritious carbohydrates and space them out between meals. Always- eat your protein first followed by your non starchy vegetables followed by your carbohydrates- it will help your body with your glucose and insulin regulation Processed Foods vs Whole Foods- Impact on Weight: People who eat Ultra Processed food tend to consume about 500 calories more per day Ultra Processed foods are considered ?Calorie Dense? so when a person feels full they have typically already over eaten and consumed more calories Whole Foods (unprocessed foods) tend to be more more filling and more Nutrient Dense Unprocessed foods can be more expensive and not realistic for everyone however when you have the choice to consume unprocessed vs Ultra processed foods always pick unprocessed. Why can't people stop eating Ultra Processed foods? They are economical and optimized for taste by [employer] - they are designed to make you want to keep eating them- they feed common cravings and bypass the mechanisms that tell your brain you are full Benefits of eating Whole Foods and cutting out Ultra Processed Foods Increased concentration and focus (decreased brain fog), improved mood, better sleep, Decrease in fatigue, improvement in gut health, decreased inflammation, Likely WEIGHT LOSS Jennifer Ratliff [email or web address].[email or web address] 10/09/2024 12:35 PM Signed Some documentation from previous visit of 08/10/2024 was copied and pasted, documentation has been reviewed and edited as necessary for today's visit. Patient Summary: Jocelyn is a 53 year old Female who presents for follow-up evaluation of obesity/weight management to treat and prevent related co-morbidities. In our previous visits we have discussed lifestyle intervention including a nutrition recommendations and physical activity optimization. Her last office visit was 2 months ago. Assessment/plan from last visit: - Trulicity started mid-August - Started Trulicity in mid-August 0.75 mg dose; no nausea reported. SE - experiences sulfur burps and bloating a couple of days after taking the weekly injection. - Taking metformin ER 500 mg once daily with dinner around 5-6 PM. - Considering increasing metformin dose to two pills daily. - Bupropion 300 XL for NADIRA and depression per PCP, also helps with food cravings. - Sleep study done at [facility] - DRE CPAP recommended and new mask is en route - Weaned off Cymbalta. Doing well on Effexor and bupropion - Consult to BMI - considering if unsuccessful at weight loss - Semaglutide - Not covered by insurance Interval History PT specifies the following items as new or significant updates since the last appointment: - Reports severe hot flashes and night sweats, describing them as worse, worse. - Experiences episodes of intense sweating and hair getting soaked. - Going through divorce - seeing counselor. Weight loss since last vist: 3 lbs. Date: Weight: BMI: Medications: 10/09/2024 306 lb 53.52 Trulicity 1.5 mg Trulicity started mid-08/10/2024 309 lb 54.05 Trulicity - will prescribe after 08/17/2024; 06/06/2024 309 lb 53.61 04/26/2024 311 lb 53.95 Trulicity prescribed - denied 12/21/2023 301 lb 52.22 denied 11/01/2023 300 lb 52.04 Metformin ER 500 mg 5% weight loss = 0 lbs, 10% weight loss = 0 lbs Anti-obesity medications: Benefit:slight increased fullness Adverse effects: none Weight promoting medications: Effexor Inhaled steroid Previous Diet (initial appointment): Awake - 0600 B - 08 coffee with vanilla FF 1 tsp creamer S - none L - 11-12 lunch meat sandwich on wheat with orange or grapes and lemonade or OJ S - none D - 4 pm protein, sometimes breaded and sometimes with gravy/potato or rice/salad or vegetable water or Sprite S - 6 pm fruit or veg in Ranch or cookie or chips Fluids: coffee with vanilla FF 1 tsp creamer, lemonade, OJ, regular pop 1 per day, regular Gatorade, regular Body [place] and water Bedtime - 9 pm Quality of diet: 24hr recall suggests unhealthy diet. Characterization of diet:Structured, unhealthy snacking, evening snacking, and increased consumption of sugar sweetened beverages. 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:excessive hunger, lack of satiety, mindlessness , boredom, emotion, and stress Eating Disorder no Cravings: Candy, ice cream Dietary changes: Initial, protein every meal and snack B - 08 - 30 gm protein shake S - none L - 12-1 pm Salad/1-2 HB eggs/tomato/onion/cheese/Ranch OR egg salad sandwich on LC wrap and shake or only protein shake S - none D - 4-5 pm chicken breast or fish with green beans and Salad with Ranch and berries S - 7 pm protein shake with berries or protein bar Fluids - water, powerade zero - 8 oz over a day Current Barriers: lack of motivation and reduced physical activity Exercise: - Reports reduced physical activity due to knee pain and foot pain. - Walking around the block and to the bus stop daily (15-minute walk). Stress: - Going through a divorce; and seeing a counselor. - Stress is stable. - Caring for her mother, who had a stroke but is getting better; helps with appointments as her mother does not drive. Sleep:stable - Recently started using a CPAP machine following a sleep study. - Gets about seven hours of sleep per night, sometimes feels rested without CPAP, but not always. - Waiting for a new CPAP mask; not using CPAP currently. Estimated Creatinine Clearance: 122.6 mL/min (based on SCr of 0.75 mg/dL). PAST MEDICAL HISTORY Diagnosis Date Allergic rhinitis, cause unspecified 09/10/2008 Arthritis Arthritis of knee 10/30/2020 Asthma Benign neoplasm of left breast 2018 COVID-19 virus infection 10/14/2021 10/14/2021 Environmental allergies Never formally tested. Sneezes, itches around cats. Excessive or frequent menstruation Heavy periods Fatty liver 01/04/2022 Noted on US 12/2021 Gastroesophageal reflux disease without esophagitis 09/10/2008 Hemorrhage of gastrointestinal tract, unspecified 05/10/2014 Irregular menstrual cycle Irregular periods Liver cyst 01/08/2022 MRI: 12/2021 Mild persistent asthma without complication (HCC) 12/11/2008 Obesity, Class III, BMI >= 40 (morbid obesity) E66.01 12/03/2016 Pneumonia 2008 Required intubation Restless leg syndrome 10/30/2020 Shortness of breath 2007 Was on a ventolator with pneumonia Situational depression 09/28/2022 Tonsil asymmetry 03/04/2018 Lt at 2+ Rt normal. chronic Well adult exam 09/01/2018 Done 10/30/2020 Current Outpatient Medications Medication Sig Dispense Refill Blood Pressure Test Kit-Large (QUICK RESPONSE BP MONITOR) 1 each one time only for 1 dose. 1 each 0 omeprazole (PRILOSEC) 20 mg capsule TAKE TWO CAPSULES BY MOUTH ONCE DAILY BEFORE BREAKFAST 180 capsule 1 diclofenac, EC, (VOLTAREN) 75 mg EC tablet Take 1 tablet by mouth two times a day. 180 tablet 3 dulaglutide (TRULICITY) 0.75 mg/0.5 mL pen injector Inject 0.75 mg subcutaneously one time a week for 28 days. 2 mL 0 montelukast (SINGULAIR) 10 mg tablet TAKE 1 TABLET BY MOUTH ONCE DAILY AT BEDTIME 30 tablet 5 tiotropium bromide (SPIRIVA RESPIMAT) 1.25 mcg/actuation inhaler Inhale 2 puffs as instructed once daily. 4 g 11 venlafaxine ER (EFFEXOR XR) 37.5 mg 24 hr capsule Take 1 capsule by mouth once daily. 90 capsule 1 metFORMIN ER (GLUCOPHAGE XR) 500 mg 24 hr tablet Take 2 tablets by mouth daily with dinner. 180 tablet 1 rOPINIRole (REQUIP) 0.5 mg tablet Take 1 tablet by mouth daily at bedtime. Take with 1mg tab for total of 1.5mg. 90 tablet 1 rOPINIRole (REQUIP) 1 mg tablet Take 1 tablet by mouth daily at bedtime. 90 tablet 1 cyclobenzaprine (FLEXERIL) 10 mg tablet Take 1 tablet by mouth three times a day as needed for muscle spasm. 30 tablet 0 buPROPion XL (WELLBUTRIN XL) 300 mg 24 hr tablet Take 1 tablet by mouth once daily. 90 tablet 1 cyanocobalamin (VITAMIN B-12) 1,000 mcg tab Take 1,000 mcg by mouth once daily. cholecalciferol (VITAMIN D-3) 400 unit tab Take 400 Units by mouth once daily. mometasone-formoterol (DULERA) 200-5 mcg/actuation inhaler Inhale 2 Puffs as instructed two times a day. 18 g 11 loratadine (CLARITIN) 10 mg tablet Take 1 tablet by mouth once daily as needed. FOR ALLERGY SYMPTOMS 30 tablet 11 albuterol HFA (PROVENTIL HFA, VENTOLIN HFA) 90 mcg/actuation inhaler INHALE 2 PUFFS BY MOUTH EVERY 6 HOURS NEEDED FOR SHORTNESS OF BREATH AND WHEEZING 1 Each 5 Nebulizer Accessories kit Provide 1 kit. 1 Each 4 albuterol (PROVENTIL) 2.5 mg /3 mL (0.083 %) nebulizer solution Use 3 mL via nebulizer every 4 hours as needed for wheezing/shortness of breath. Use over 5-15minutes. 360 mL 3 promethazine (PHENERGAN) 25 mg tablet Take 1 tablet by mouth every 6 hours as needed. 12 tablet 0 ProAir RespiClick 90 mcg/actuation breath activated (albuterol sulfate) Inhale 2 Puffs as instructed every 6 hours as needed. 1 Each 5 No current facility-administered medications for this visit. ROS Constitutional: (+) weight loss Gastrointestinal: (+) belching, (+) abdominal bloating, (?) nausea Genitourinary: (+) decreased libido Musculoskeletal: (+) knee pain, (+) foot pain Respiratory: (?) snoring Endocrine: (+) hot flashes Occupation: Unemployed and filing for disability - hearing in November 2024 Contraception: hysterectomy BP 153/84 Pulse 72 Wt (!) 138.8 kg (306 lb) LMP 12/01/2010 (Exact Date) SpO2 99% BMI 53.52 kg/m? PE GENERAL: Pleasant, well-nourished, no acute distress PULMONARY: normal inspiratory effort NEURO: alert and oriented x3 Results: recent labs reviewed with the patient. Glucose (mg/dL) Date Value 04/26/2024 84 10/30/2020 74 Potassium (mmol/L) Date Value 04/26/2024 4.0 10/30/2020 4.1 Sodium (mmol/L) Date Value 04/26/2024 140 10/30/2020 142 Chloride (mmol/L) Date Value 04/26/2024 103 10/30/2020 104 CO2 (mmol/L) Date Value 04/26/2024 27 10/30/2020 24 Creatinine (mg/dL) Date Value 04/26/2024 0.75 10/30/2020 0.80 BUN (mg/dL) Date Value 04/26/2024 15 10/30/2020 13 Anion Gap (mmol/L) Date Value 04/26/2024 10 10/30/2020 14 Calcium (mg/dL) Date Value 10/30/2020 9.7 Calcium, Total (mg/dL) Date Value 04/26/2024 9.6 Latest Ref Rng AND Units 11/01/2022 11/07/2023 04/26/2024 CMP Sodium 136 - 144 mmol/L 139 141 140 Potassium 3.7 - 5.1 mmol/L 4.2 4.2 4.0 Chloride 98 - 107 mmol/L 103 106 103 CO2 22 - 30 mmol/L 24 24 27 Glucose 74 - 99 mg/dL 79 93 84 BUN 7 - 21 mg/dL 11 14 15 Creatinine 0.58 - 0.96 mg/dL 0.89 0.81 0.75 EGFR >=60 mL/min/1.73m? 80 89 97 Protein, Total 6.3 - 8.0 g/dL 6.9 6.9 Albumin 3.9 - 4.9 g/dL 4.5 4.3 Calcium 8.5 - 10.2 mg/dL 9.7 9.6 9.6 Bilirubin, Total 0.2 - 1.3 mg/dL 0.2 0.2 AST 13 - 35 U/L 20 17 ALT 7 - 38 U/L 22 21 Alkaline Phosphatase 34 - 123 U/L 68 77 Cholesterol, Total (mg/dL) Date Value 11/07/2023 181 03/09/2019 173 Total Cholesterol, Nonfasting (mg/dL) Date Value 10/30/2020 179 HDL Cholesterol (mg/dL) Date Value 11/07/2023 53 03/09/2019 66 HDL Cholesterol, Nonfasting (mg/dL) Date Value 10/30/2020 60 LDL Cholesterol, Calculated (mg/dL) Date Value 11/07/2023 97 03/09/2019 84 LDL Cholesterol Calculated, Nonfasting (mg/dL) Date Value 11/01/2022 89 10/30/2020 89 Triglyceride (mg/dL) Date Value 11/07/2023 155 03/09/2019 113 Triglycerides, Nonfasting (mg/dL) Date Value 10/30/2020 151 Latest Ref Rng AND Units 12/21/2021 11/01/2022 11/07/2023 CBC WBC 3.70 - 11.00 k/uL 7.43 6.73 6.23 RBC 3.90 - 5.20 m/uL 4.74 4.70 4.89 Hemoglobin 11.5 - 15.5 g/dL 12.9 12.9 12.9 Hematocrit 36.0 - 46.0 % 41.2 39.9 40.0 MCV 80.0 - 100.0 fL 86.9 84.9 81.8 MCH 26.0 - 34.0 pg 27.2 27.4 26.4 MCHC 30.5 - 36.0 g/dL 31.3 32.3 32.3 RDW-CV 11.5 - 15.0 % 13.3 13.2 14.0 Platelet Count 150 - 400 k/uL 391 344 357 MPV 9.0 - 12.7 fL 11.0 11.2 9.6 Baso% % 1.2 1.3 Abs Neut (ANC) 1.45 - 7.50 k/uL 4.03 4.39 Abs Lymph 1.00 - 4.00 k/uL 2.13 1.43 Abs [place] <0.87 k/uL 0.57 0.49 Abs Eosin <0.46 k/uL 0.58 0.31 Abs Baso <0.11 k/uL 0.09 0.09 NRBC /100 WBC 0.0 0.0 Vitamin D 25 Hydroxy Date Value Ref Range Status 11/07/2023 26.8 (L) 31.0 - 80.0 ng/mL Final Comment: Classification of 25 OH Vitamin D status: Deficiency/Insufficiency: < or = 30 ng/ml. Sufficiency/Optimal Levels: 31-80 ng/mL Toxicity: > 100 ng/mL. Test performed by chemiluminescent immunoassay. TSH Date Value 11/07/2023 2.290 mIU/L 11/01/2022 1.850 mIU/L 10/08/2019 1.670 uU/mL 11/10/2018 2.560 uU/mL Hemoglobin A1C (%) Date Value 11/07/2023 5.3 11/01/2022 5.0 09/30/2021 5.0 10/30/2020 5.0 03/04/2018 4.7 Insulin Date Value Ref Range Status 11/07/2023 33.4 (H) 3.0 - 25.0 mU/L Final Anti-Obesity Medications >Saxenda/Wegovy/Ozempic: Cost. Ins coverage? Family or personal History of MEN2 or Medullary thyroid cancer: no >Metformin: eGFR > 30. No contraindications or medication interactions. Assessment/Plan: Cinthya Bone is a 53 year old yo with Class III obesity who presented today for follow up for supervised weight loss to treat and prevent related co-morbidities. 1. DRE on CPAP (G47.33) - Awaiting new CPAP mask; not currently using CPAP. - New mask expected to arrive within a few days. 2. Gastroesophageal reflux disease without esophagitis (K21.9) - Continue omeprazole (Prilosec) in the morning on an empty stomach. - Advised to avoid eating and then lying down. 3. Moderate persistent asthma without complication (HCC) (J45.40) - Well-controlled; continue current management. 4. Fatty liver (K76.0) - Discussed importance of weight management and dietary modifications. - Provided detailed nutritional guidance emphasizing high protein intake and low carbohydrate consumption. 5. Generalized anxiety disorder (F41.1) - Stable on current regimen of Effexor and bupropion (Wellbutrin). - Continues to see a counselor. 6. Arthritis of knee (M17.10) - Advised that weight loss may improve candidacy for knee surgery. 7. Hyperinsulinemia (E16.1) 8. Class 3 severe obesity with serious comorbidity and body mass index (BMI) of 50.0 to 59.9 in adult, unspecified obesity type (HCC) (E66.813) - Down 3 lbs since last visit; continues to follow dietary recommendations and increase physical activity. - Trulicity started mid-August; experiencing sulfur burps and bloating a few days after injection, but no nausea. - Discussed GLP-1 alternatives (Mounjaro, Ozempic, Zepbound) with fewer side effects, but not covered by [employer] insurance. - Discussed bariatric surgery as an option; provided detailed education on the process, including insurance coverage, required seminar, and patient navigator support. - Encouraged to consider bariatric surgery while young enough to benefit; explained that gastric bypass may be preferable due to GERD. - Advised to use Gas-X (simethicone) for bloating and to avoid eggs for a few days after injection to reduce sulfur burps. - Increase Trulicity dose from 0.75 mg to 1.5 mg weekly; provided 4-week supply. - DULAGLUTIDE 1.5 MG/0.5 ML SUBCUTANEOUS PEN INJECTOR - Continue metformin ER 500 mg daily with dinner; encouraged to increase to 2 pills with dinner or 1 pill BID with meals as tolerated to enhance Trulicity effect. - METFORMIN ER 500 MG TABLET,EXTENDED RELEASE 24 HR. - can increase dose as able. - Advised to increase protein intake to 30 grams per meal; provided suggestions for high-protein foods and snacks. -- We discussed several strategies to track food intake and increase mindfulness around eating will decrease calorie intake. She was counseled on the following: - Reviewed whole food balanced protein, controlled carbohydrate nutrition plan. - Given protein, whole food and high protein nutrition lists. - Encouraged to continue walking and increase physical activity as tolerated. - An overall goal of 150-200 minutes per week of exercise has been effective in weight loss and maintenance. She understands that there can be limitations of pharmacotherapy due to contraindications, side effects and cost. Patient was told to contact her insurance company to see what AOMs and supervised behavioral medical appointments are currently covered. Patient understands she will have more success when following a healthy lifestyle. We reviewed continued use of online tracking of daily weights, food journal and if desired physical activity. We reviewed that during management she is to report any concerning side effects of any pharmacotherapy she is placed on. She understands that she will need routine follow up in the office. Prior to any virtual visits in the future she will need to check her Blood pressure, weight, and pulse. Prescription instructions reviewed with patient as applicable. Potential red flag symptoms discussed with the patient. Reviewed appropriate action plan to take if red flag symptoms occur. Patient agreeable to treatment plan. - PCP ordered labs earlier today - magnesium, vitamin B12, thyroid panel, CMP, lipid panel, CBC, hemoglobin A1c, and vitamin D level. - Advised to notify via Xcalar before 11/15 regarding Trulicity refill or dose adjustment. - Follow-up in 3 months Jennifer Ratliff CNP Advanced Education from the [employer] Medical Decision Making: Problems: Moderate: 2+ stable chronic illnesses and 1+ chronic illnesses with change Risk: Moderate: Drug management and Moderate risk from testing/treatment Medical Decision Making Level: 4 - Moderate Allergies As of Date: 10/09/2024 Noted Allergy Reaction CATS 2011 7 - Swelling Comments: rash Date Reviewed: 10/09/2024 Reviewed by: Jennifer Ratliff APRN.DAKOTA - Fully Assessed Reason for Visit: Weight Management [3933] Primary Visit Diagnosis:DRE on CPAP [G47.33] Other Visit Diagnoses:Gastroesophageal reflux disease without esophagitis [K21.9] Moderate persistent asthma without complication (HCC) [J45.40] Fatty liver [K76.0] Generalized anxiety disorder [F41.1] Arthritis of knee [M17.10] Hyperinsulinemia [E16.1] Class 3 severe obesity with serious comorbidity and body mass index (BMI) of 50.0 to 59.9 in adult, unspecified obesity type (HCC) [E66.813, Z68.43] Order(s):[START ON 10/18/2024] dulaglutide (TRULICITY) 1.5 mg/0.5 mL pen injectorInject 1.5 mg subcutaneously one time a week for 28 days. Patient should start on October 18, 2024.Disp: 2 mLRfl: 0 Prescriptions as of 10/09/2024 - Blood Pressure Test Kit-Large (QUICK RESPONSE BP MONITOR) 1 each one time only for 1 dose. - dulaglutide (TRULICITY) 1.5 mg/0.5 mL pen injector Inject 1.5 mg subcutaneously one time a week for 28 days. Patient should start on October 18, 2024. - omeprazole (PRILOSEC) 20 mg capsule TAKE TWO CAPSULES BY MOUTH ONCE DAILY BEFORE BREAKFAST - diclofenac, EC, (VOLTAREN) 75 mg EC tablet Take 1 tablet by mouth two times a day. - montelukast (SINGULAIR) 10 mg tablet TAKE 1 TABLET BY MOUTH ONCE DAILY AT BEDTIME - tiotropium bromide (SPIRIVA RESPIMAT) 1.25 mcg/actuation inhaler Inhale 2 puffs as instructed once daily. - venlafaxine ER (EFFEXOR XR) 37.5 mg 24 hr capsule Take 1 capsule by mouth once daily. - metFORMIN ER (GLUCOPHAGE XR) 500 mg 24 hr tablet Take 2 tablets by mouth daily with dinner. - rOPINIRole (REQUIP) 0.5 mg tablet Take 1 tablet by mouth daily at bedtime. Take with 1mg tab for total of 1.5mg. - rOPINIRole (REQUIP) 1 mg tablet Take 1 tablet by mouth daily at bedtime. - cyclobenzaprine (FLEXERIL) 10 mg tablet Take 1 tablet by mouth three times a day as needed for muscle spasm. - buPROPion XL (WELLBUTRIN XL) 300 mg 24 hr tablet Take 1 tablet by mouth once daily. - cyanocobalamin (VITAMIN B-12) 1,000 mcg tab Take 1,000 mcg by mouth once daily. - cholecalciferol (VITAMIN D-3) 400 unit tab Take 400 Units by mouth once daily. - mometasone-formoterol (DULERA) 200-5 mcg/actuation inhaler Inhale 2 Puffs as instructed two times a day. - loratadine (CLARITIN) 10 mg tablet Take 1 tablet by mouth once daily as needed. FOR ALLERGY SYMPTOMS - albuterol HFA (PROVENTIL HFA, VENTOLIN HFA) 90 mcg/actuation inhaler INHALE 2 PUFFS BY MOUTH EVERY 6 HOURS NEEDED FOR SHORTNESS OF BREATH AND WHEEZING - Nebulizer Accessories kit Provide 1 kit. - albuterol (PROVENTIL) 2.5 mg /3 mL (0.083 %) nebulizer solution Use 3 mL via nebulizer every 4 hours as needed for wheezing/shortness of breath. Use over 5-15minutes. - promethazine (PHENERGAN) 25 mg tablet Take 1 tablet by mouth every 6 hours as needed. - ProAir RespiClick 90 mcg/actuation breath activated (albuterol sulfate) Inhale 2 Puffs as instructed every 6 hours as needed. Problem List As Of Date 10/09/2024 Noted Resolved Shortness of breath [R06.02] 01/13/2011 Pneumonia, organism unspecified [J18.9] 07/15/2006 01/13/2011 Acute respiratory failure [J96.00] 07/15/2006 01/13/2011 ACUTE URI NOS [J06.9] 08/07/2007 09/10/2008 Gastroesophageal reflux disease without esophag*09/10/2008 Allergic rhinitis [J30.9] 09/10/2008 Moderate persistent asthma without complication*12/11/2008 Environmental allergies [Z91.09] Obesity, Class III, BMI >= 40 (morbid obesity) *12/03/2016 Irritable mood [R45.4] 03/04/2018 Post menopausal syndrome [N95.1] 03/04/2018 Tonsil asymmetry [J35.8] 03/04/2018 Encounter for screening for diabetes mellitus [*03/04/2018 Well adult exam [Z00.00] 09/01/2018 Medication management [Z79.899] 09/01/2018 Arthritis of knee [M17.10] 10/30/2020 Restless leg syndrome [G25.81] 10/30/2020 COVID-19 virus infection [U07.1] 10/14/2021 Fatty liver [K76.0] 01/04/2022 Liver cyst [K76.89] 01/08/2022 Situational depression [F43.21] 09/28/2022 DRE on CPAP [G47.33] 11/01/2023 Class 3 severe obesity with serious comorbidity*12/21/2023 Hyperinsulinemia [E16.1] 12/21/2023 Acute right-sided thoracic back pain [M54.6] 04/27/2024 Other instructions from your clinician: - Continue taking Trulicity 1.5 mg by subcutaneous injection every Tuesday; your current supply lasts through 10/18. A few weeks before you run out (around 10/31-11/06), send a Xcalar message if you need a refill of the same dose or want to increase/decrease the dose. - Keep taking metformin ER 500 mg once daily with dinner. To boost Trulicity?s effect, you may increase to two tablets at dinner or take one tablet with 2 meals. - For gas, bloating or ?sulfur burps? after your Trulicity shot: - Take an [id number] simethicone product (Gas-X) as needed. - Continue your omeprazole. - For the first two days after each injection, skip eggs (a common sulfur trigger) and use shredded chicken or other protein on your salad instead. - Consider a larger dinner and skip the bedtime shake on injection days if late-night eating worsens symptoms. - Nutrition goals: - Aim for at least 30 grams of protein at each meal. Add shredded chicken breast to salads or use a high-protein low-carb wrap (about 11 g protein each--microwave 10 seconds on a paper towel before filling to prevent tearing). - Use high-protein yogurts for snacks, such as Chobani Zero or Oikos Zero (20 g protein per serving). - Hydration: stick with water or sugar-free beverages; limit carbonated drinks if they worsen bloating. - Physical activity: continue walking around your block and to the bus stop daily, as tolerated. - Sleep apnea: start using your CPAP nightly as soon as your new mask arrives in the next couple of days. - Bariatric surgery option: if you decide to pursue weight-loss surgery, send a Xcalar message to request the referral. You?ll receive a link to watch the required seminar, complete your information, and then be assigned a patient navigator to guide you through the process - Whole food balanced protein, controlled carbohydrate nutrition plan - 30 g of protein 3 times a day and up to 30 g of carbs at lunch and dinner only. 1st meal of the day- 30g protein with limit of 2 gm carbohydrates. Premier Protein or generic 30 gm protein 1 gm sugar 2. 2-3 eggs and some unbreaded meat and/or cheese. 3. 2-3 eggs and 1/2 of protein shake or one of the yogurts below: :ratio, KETO Friendly Dairy Snack 1 single svg - 15g protein AND 2g carb Two Good Lowfat [place] Yogurt, Lower Sugar - 12g protein AND 2g carb No fruit, vegetables, bread, grain, other brands of yogurt, Smoothies, etc. Lunch and dinner - 30 gm protein is the goal with less than 30 gm carbohydrates All snacks and meals - all protein or more protein than carbs Protein - no carbs Egg 1 large - 6g Egg white 1 large 3.6g 3 oz is approximately the size of a deck of cards and equals 21 g protein so 4 oz is 28 gm protein Beef, Chicken, Gail, Pork, Gamble 1 oz 7g Fish, Tuna Fish 1 oz 7g (Starkist tuna packet 2.6 oz 17 gm protein) Seafood (Crabmeat, Shrimp, Lobster) 1 oz 6g Protein shakes (read labels) Premier Protein or generic [employer] Equate, [employer] High Performance- 30g protein AND 2g carb Premier Protein powder or generic- 30 g protein, 1g carb Fairlife 30 gram protein - 30g protein AND 3g carb BOOST Glucose Control Max 30g Protein Nutritional Drink - 30g protein AND 1g carb Nurri 30g protein 2g carb Slimfast High Protein - 20g protein AND 1g carb Ensure Max Protein Nutrition Shake 30g protein AND 2g carb OWYN plant based 100 % vegan no dairy, soy, wheat/gluten 32g protein 0 net carb Premier Protein plant protein powder - 25g protein, 0 sugar/2g carb Vanilla and chocolate Genius Gourmet Sparkling Clear water ([employer]) 30g protein <1 carb Protein AND carbs Beef/Gail Jerky 1 oz dried 10-15g protein - check carb count, can be high if sugar added Slim Nikolay - 6 gm protein and 4 net carb Great Value original turkey sausage sticks - 7 gm protein and 2 gm carb Librado (at [facility]) Original smoked sausage sticks - 8 gm protein and 0 carb Imitation Crab Meat 1 oz - 2g protein AND 4g carb Milk, skim 2% or 1% 8 oz - 8g protein AND 12g carb Fairlife 2% milk 8 oz -13g protein AND 6g carb Moz[place] yogurt Full Fat [place] Yogurt 1 cup - 20.4g protein AND 9.1g carb 2% Moz[place] Yogurt 1 cup - 22.7g protein AND 9.1g carb 0% (fat-free) [place] Yogurt - 1 cup 24g protein AND 9.3g carb Aldi Protein Moz[place] yogurt single svg - 13/g15g protein AND 7g carb Chobani Zero Sugar single svg: - 12g protein AND 5g carb Chobani Zero 20g protein Dannon Moz[place] Light + Fit 1 single svg - 12g protein AND 9g carb Oikos Pro single svg - 20g protein AND 8g carb Oikos Triple Zero [place] Nonfat Yogurt 1 single svg - 15g protein AND 7g carb :ratio, KETO Friendly Dairy Snack 1 single svg - 15g protein AND 2g carb :ratio Protein 1 single svg - 25g protein AND 8g carb Two Good Lowfat [place] Yogurt, [place], Lower Sugar - 12g protein AND 2g carb Yoplait Protein 1 single svg 15g protein AND 5g carb Dairy Free - [place] unsweetened Mozambican almond/soy 15g protein AND 3g carb Dairy Free - True Goodness by [facility] coconut-based yogurt alternative 1 g protein 1 g net carb 180 uma Drinkable yogurts: Chobani drinkable 15g, 20g and 30g protein AND 18 carb (too many carbs for breakfast) Chobani Zero Sugar 10g protein 6g carbs 50 calories Oikos Pro drinkable yogurt 1 single svg - 23g protein AND 8g carb :ratio Protein 26g protein 9g carb Cheese each oz Brie 5.9g protein AND 0.1g carb Cheddar 7g protein AND 0.4g carb Addison 6.7g protein AND 0.7g carb Cream Cheese 1.7g protein AND 1.2g carb [employer] [facility] whipped [place] cream cheese (WM) 2 T 3g protein 2g carb Feta 4g protein AND 1.2g carb Mozzarella 6.3g protein AND 0.6g carb Parmesan 10g protein AND 0.9g carb Eritrean 7.6g protein AND 1.5g carb Cottage Cheese 1/2 c Breakstone 2% 13g protein 7g carb Lorrie 2% 13g protein 5 g carb Good Culture 2% 14g protein 3g carb Lactaid 13g protein 5g carb Delgado?s Low Fat 12g protein AND 4g carb Legumes Lentils ? cup 9g protein AND 20g carb [place] beans ? cup 7g protein AND 20g carb Kidney, Black, [place], Cannellini beans ? cup 8g protein AND 20g carb Chickpeas 1/2 c 6g protein AND 15g carb Soybeans 1/2 c 14g complete protein AND 8.5g carb [place] milk, unsweetened 8 oz 1g protein AND 2g carb Soy milk 8 oz 3.5g protein AND 1.6g carb Tofu 1/2 cup 10g protein AND 2.3g carb Peanut butter, natural 2 Tbsp 7-8g protein AND 4g net carbs, 190 calories PB2 powder 2 Tbsp 6g protein AND 5g carb Nuts and Seeds per oz Almonds - 5.9g protein AND 6.1g carb [place] Nuts - 4.0g protein AND 3.4g carb Cashews - 5.1g protein AND 9.2g carb Hazelnuts - 4.2g protein AND 4.7g carb Hemp seeds/hearts 3 T/30 gms - 9.5 gm complete protein and 2.5 gm carb Peanuts - 7g protein AND 4.6g carb Pecans - 2.6g protein AND 3.9g carb Pistachios - 5.8g protein AND 7.8g carb Pumpkin Seeds - 6.9g protein AND 5g carb [place] Seeds - 5.8g protein AND 5.6g carb Walnuts - 4.3g protein AND 3.8g carb Edamame Beans (soybean) snack 1 pack 11 gm complete protein 2 carb 5 (FIVE) gram carb vegetable options 1 cup raw OR ? cup cooked: Asparagus [place]leson sprouts Beets Broccoli Brussel sprouts Cabbage Carrots Cauliflower Celery [place] Eggplant Green beans Lettuce Peppers Snap peas Spaghetti squash Spinach Tomato Turnips Zucchini 15 gram carb vegetable options ? cup cooked corn or hominy ? corn on the cob, large (5 oz) ? cup cooked green peas 4.3 gm complete protein ? cup cooked cortes beans 1 small potato or sweet potato ? cup cooked potato, plain ? cup cooked sweet potato, plain 1 cup winter squash (pumpkin, acorn, butternut) 1 cup marinara or pasta sauce - check label ? cup tomato juice ? cup tomato puree Beans, Seeds, Nuts ? cup cooked beans (kidney, bryant, red, green, etc.) ? cup cooked lentils ? cup baked beans 4 tablespoons nut butter <15 gram carb fruit options Berries have the lowest sugar content 1/2 medium apple - 12.5 carbs 1/2 medium avocado - 6.5 gm carbs 1/2 medium banana - 15 carbs 1/2 cup blueberries - 11 carbs - may actually help you lose weight 1/2 cup fresh cherries -11 carbs 1 medium Nicolette -9 carbs 1/2 cup fresh cranberries - 6.5 carbs 1 [place] date - 15-18 carbs 1/2 c grapes - 15 carbs 1/2 medium grapefruit - 10.5 carbs 1/2 cup diced honeydew melon - 8 carbs 1 medium kiwi without skin - 11 carbs 1/2 cup sliced lynda -14 carbs 1 medium nectarine - 15 carbs 1 medium orange -15.5 carbs 1 medium peach -14.5 carbs 1/2 cup fresh pineapple -11 carbs 1 medium plum -7.5 carbs 1 prune - 6 carbs 1/4 c raisins - 31.25 carbs 1/2 cup raspberries -7.5 carbs 1/2 c strawberries - 12.7 carbs 1 medium tangerine -12 carbs 1/2 cup diced watermelon - 6 carbs Grains Brown rice 1/2 c 5.5g protein 24 carb White long-grain rice 1/2 c 2g protein 22.5 carb Quinoa 1/2 c 4 gm complete protein 25 carb Oatmeal, old fashioned 1/2 c 5g protein 27g carb High Protein Snack Ideas 1. Jerky 2. [place] mix without dried fruit 3. Gail roll-ups 4. Moz[place] yogurt 5. Veggies and yogurt dip 6. Tuna 7. Hard-boiled eggs 8. Peanut butter with celery 9. Cheese slices/ Cheese Stick 10. Handful of almonds, peanuts or walnuts 11. Cottage Cheese 12. Beef sticks 13. Protein bars 14. Canned [place] 15. Pumpkin seeds 16. Nut butter 17. Protein shake or protein bar 18. Avocado and chicken salad 19. Egg muffins 20. Leftover protein or lunch meat 21. 1/2 c blended cottage cheese or [place]amb[place] yogurt with dry ranch/Mrs. Dash/herb seasoning mix to make protein dip- add raw veg 22. 1/2 c blended cottage cheese with 1 Tbsp sugar-free dry cheesecake pudding mix 12g protein 10 carb 23. Pudding - 1 30 gm protein shake with 1/2 pkg sugar-free pudding 4 svgs - 7.8 gm protein, 5 carb each svg 24. SF Sunkist or Root Beer with 1-2 Tablespoons heavy whipping cream 25. Mini frozen dessert bites - layer protein yogurt, skinny syrup and crushed nuts and freeze 26. Edamame Beans (soybean) snack 1 pack (O Beans) 11 gm complete protein 2 carb Why Is Protein So Important for Weight loss? consuming more protein not only reduces body weight but enhances body composition by decreasing fat mass while preserving fat-free mass During weight loss phase protein consumption (with normal kidney function) should be 1-1.6g protein per Kilogram of body weight (1kg=2.2lbs) On average Women need to Aim for a minimum 90g protein per day Consuming higher protein can also prevent weight regain after weight loss Protein consumption increases hormones responsible for satiety (feeling full)- these include Gut hormones like Glucagon-like peptide-1 (GLP-1), Cholecystokinin (CCK), Peptide Tyrosine-Tyrosine (PYY) and decreasing the Gut hormone responsible for causing hunger Ghrelin Protein has an increased thermogenesis effect of food- which means it take more calories to break down protein when consumed compared to carbohydrates or fats Protein also prevents a losing lean mass during weight loss (lose more fat and preserve fat free mass) which helps to increase resting energy expenditure (resting metabolic rate) Every pound of muscle baker ~ 6 kcal per pound/day vs fat baker ~ 2kcal per pound/day Carbohydrates - Why do You Crave Them? Eating too many refined carbohyrdates (sugar beverages, pastries, bread, pizza) which raises your blood glucose levels and therefore releasing insulin which in turn causes increase in hunger Carbohydrates suppress Ghrelin quickly but does not maintain the suppression for very long therefore hunger returns more quickly Consuming carbohydrates leads to a release of Dopamine ?feel good hormone? in our brain So how do you Curb these cravings? Eating Whole Foods with more fiber - High fiber carbs are absorbed and digested slowly so it does not impact blood sugar levels as much and will help in making you feel hanson for longer; fiber also is healthy for your gut bacteria and can help with constipation. Remember- carbohydrates are not the enemy but know what a proper serving size is, choose nutritious carbohydrates and space them out between meals. Always- eat your protein first followed by your non starchy vegetables followed by your carbohydrates- it will help your body with your glucose and insulin regulation Processed Foods vs Whole Foods- Impact on Weight: People who eat Ultra Processed food tend to consume about 500 calories more per day Ultra Processed foods are considered ?Calorie Dense? so when a person feels full they have typically already over eaten and consumed more calories Whole Foods (unprocessed foods) tend to be more more filling and more Nutrient Dense Unprocessed foods can be more expensive and not realistic for everyone however when you have the choice to consume unprocessed vs Ultra processed foods always pick unprocessed. Why can't people stop eating Ultra Processed foods? They are economical and optimized for taste by [employer] - they are designed to make you want to keep eating them- they feed common cravings and bypass the mechanisms that tell your brain you are full Benefits of eating Whole Foods and cutting out Ultra Processed Foods Increased concentration and focus (decreased brain fog), improved mood, better sleep, Decrease in fatigue, improvement in gut health, decreased inflammation, Likely WEIGHT LOSS Prescriptions ordered this encounter Disp Refills Start End DULAGLUTIDE 1.5 MG/0.5 ML SUBCUTANEO* 2 mL 0 10/18/2024 11/15/2024 Route: SQ Sig: Inject 1.5 mg subcutaneously one time a week for 28 days. Patient should start on October 18, 2024. Medications Discontinued During This Encounter Prescriptions - dulaglutide (TRULICITY) 0.75 mg/0.5 mL pen injector (Discontinued) Inject 0.75 mg subcutaneously one time a week for 28 days. Disposition: Return in about 3 months (around 01/09/2025) for wt mgt F/up. Follow-up and Disposition History for Encounter Date Provider Department Center 10/09/2024 [id number], AMY CARLA [place] Encounter Status:Closed by JENNIFER RATLIFF on 10/09/24 PROGRESS Observed: 10/09/2024 11:30 AM Status: COMPLETED Source: [facility] HNO ID: [id number] Author: JENNIFER RATLIFF APRN.[employer] Service: ? Author Type: Nurse Practitioner Type: Progress Notes Filed: 10/09/2024 12:35 Note Text: Some documentation from previous visit of 08/10/2024 was copied and pasted, documentation has been reviewed and edited as necessary for today's visit. Patient Summary: Jocelyn is a 53 year old Female who presents for follow-up evaluation of obesity/weight management to treat and prevent related co-morbidities. In our previous visits we have discussed lifestyle intervention including a nutrition recommendations and physical activity optimization. Her last office visit was 2 months ago. Assessment/plan from last visit: - Trulicity started mid-August - Started Trulicity in mid-August 0.75 mg dose; no nausea reported. SE - experiences sulfur burps and bloating a couple of days after taking the weekly injection. - Taking metformin ER 500 mg once daily with dinner around 5-6 PM. - Considering increasing metformin dose to two pills daily. - Bupropion 300 XL for NADIRA and depression per PCP, also helps with food cravings. - Sleep study done at [facility] - DRE CPAP recommended and new mask is en route - Weaned off Cymbalta. Doing well on Effexor and bupropion - Consult to BMI - considering if unsuccessful at weight loss - Semaglutide - Not covered by insurance Interval History PT specifies the following items as new or significant updates since the last appointment: - Reports severe hot flashes and night sweats, describing them as worse, worse. - Experiences episodes of intense sweating and hair getting soaked. - Going through divorce - seeing counselor. Weight loss since last vist: 3 lbs. Date: Weight: BMI: Medications: 10/09/2024 306 lb 53.52 Trulicity 1.5 mg Trulicity started mid-08/10/2024 309 lb 54.05 Trulicity - will prescribe after 08/17/2024; 06/06/2024 309 lb 53.61 04/26/2024 311 lb 53.95 Trulicity prescribed - denied 12/21/2023 301 lb 52.22 denied 11/01/2023 300 lb 52.04 Metformin ER 500 mg 5% weight loss = 0 lbs, 10% weight loss = 0 lbs Anti-obesity medications: Benefit:slight increased fullness Adverse effects: none Weight promoting medications: Effexor Inhaled steroid Previous Diet (initial appointment): Awake - 0600 B - 08 coffee with vanilla FF 1 tsp creamer S - none L - 11-12 lunch meat sandwich on wheat with orange or grapes and lemonade or OJ S - none D - 4 pm protein, sometimes breaded and sometimes with gravy/potato or rice/salad or vegetable water or Sprite S - 6 pm fruit or veg in [place] or cookie or chips Fluids: coffee with vanilla FF 1 tsp creamer, lemonade, OJ, regular pop 1 per day, regular Gatorade, regular Body [place] and water Bedtime - 9 pm Quality of diet: 24hr recall suggests unhealthy diet. Characterization of diet:Structured, unhealthy snacking, evening snacking, and increased consumption of sugar sweetened beverages. 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:excessive hunger, lack of satiety, mindlessness , boredom, emotion, and stress Eating Disorder no Cravings: Candy, ice cream Dietary changes: Initial, protein every meal and snack B - 08 - 30 gm protein shake S - none L - 12-1 pm Salad/1-2 HB eggs/tomato/onion/cheese/Ranch OR egg salad sandwich on LC wrap and shake or only protein shake S - none D - 4-5 pm chicken breast or fish with green beans and Salad with [place] and berries S - 7 pm protein shake with berries or protein bar Fluids - water, powerade zero - 8 oz over a day Current Barriers: lack of motivation and reduced physical activity Exercise: - Reports reduced physical activity due to knee pain and foot pain. - Walking around the block and to the bus stop daily (15-minute walk). Stress: - Going through a divorce; and seeing a counselor. - Stress is stable. - Caring for her mother, who had a stroke but is getting better; helps with appointments as her mother does not drive. Sleep:stable - Recently started using a CPAP machine following a sleep study. - Gets about seven hours of sleep per night, sometimes feels rested without CPAP, but not always. - Waiting for a new CPAP mask; not using CPAP currently. Estimated Creatinine Clearance: 122.6 mL/min (based on SCr of 0.75 mg/dL). PAST MEDICAL HISTORY Diagnosis Date Allergic rhinitis, cause unspecified 09/10/2008 Arthritis Arthritis of knee 10/30/2020 Asthma Benign neoplasm of left breast 2018 COVID-19 virus infection 10/14/2021 10/14/2021 Environmental allergies Never formally tested. Sneezes, itches around cats. Excessive or frequent menstruation Heavy periods Fatty liver 01/04/2022 Noted on US 12/2021 Gastroesophageal reflux disease without esophagitis 09/10/2008 Hemorrhage of gastrointestinal tract, unspecified 05/10/2014 Irregular menstrual cycle Irregular periods Liver cyst 01/08/2022 MRI: 12/2021 Mild persistent asthma without complication (HCC) 12/11/2008 Obesity, Class III, BMI >= 40 (morbid obesity) E66.01 12/03/2016 Pneumonia 2008 Required intubation Restless leg syndrome 10/30/2020 Shortness of breath 2007 Was on a ventolator with pneumonia Situational depression 09/28/2022 Tonsil asymmetry 03/04/2018 Lt at 2+ Rt normal. chronic Well adult exam 09/01/2018 Done 10/30/2020 Current Outpatient Medications Medication Sig Dispense Refill Blood Pressure Test Kit-Large (QUICK RESPONSE BP MONITOR) 1 each one time only for 1 dose. 1 each 0 omeprazole (PRILOSEC) 20 mg capsule TAKE TWO CAPSULES BY MOUTH ONCE DAILY BEFORE BREAKFAST 180 capsule 1 diclofenac, EC, (VOLTAREN) 75 mg EC tablet Take 1 tablet by mouth two times a day. 180 tablet 3 dulaglutide (TRULICITY) 0.75 mg/0.5 mL pen injector Inject 0.75 mg subcutaneously one time a week for 28 days. 2 mL 0 montelukast (SINGULAIR) 10 mg tablet TAKE 1 TABLET BY MOUTH ONCE DAILY AT BEDTIME 30 tablet 5 tiotropium bromide (SPIRIVA RESPIMAT) 1.25 mcg/actuation inhaler Inhale 2 puffs as instructed once daily. 4 g 11 venlafaxine ER (EFFEXOR XR) 37.5 mg 24 hr capsule Take 1 capsule by mouth once daily. 90 capsule 1 metFORMIN ER (GLUCOPHAGE XR) 500 mg 24 hr tablet Take 2 tablets by mouth daily with dinner. 180 tablet 1 rOPINIRole (REQUIP) 0.5 mg tablet Take 1 tablet by mouth daily at bedtime. Take with 1mg tab for total of 1.5mg. 90 tablet 1 rOPINIRole (REQUIP) 1 mg tablet Take 1 tablet by mouth daily at bedtime. 90 tablet 1 cyclobenzaprine (FLEXERIL) 10 mg tablet Take 1 tablet by mouth three times a day as needed for muscle spasm. 30 tablet 0 buPROPion XL (WELLBUTRIN XL) 300 mg 24 hr tablet Take 1 tablet by mouth once daily. 90 tablet 1 cyanocobalamin (VITAMIN B-12) 1,000 mcg tab Take 1,000 mcg by mouth once daily. cholecalciferol (VITAMIN D-3) 400 unit tab Take 400 Units by mouth once daily. mometasone-formoterol (DULERA) 200-5 mcg/actuation inhaler Inhale 2 Puffs as instructed two times a day. 18 g 11 loratadine (CLARITIN) 10 mg tablet Take 1 tablet by mouth once daily as needed. FOR ALLERGY SYMPTOMS 30 tablet 11 albuterol HFA (PROVENTIL HFA, VENTOLIN HFA) 90 mcg/actuation inhaler INHALE 2 PUFFS BY MOUTH EVERY 6 HOURS NEEDED FOR SHORTNESS OF BREATH AND WHEEZING 1 Each 5 Nebulizer Accessories kit Provide 1 kit. 1 Each 4 albuterol (PROVENTIL) 2.5 mg /3 mL (0.083 %) nebulizer solution Use 3 mL via nebulizer every 4 hours as needed for wheezing/shortness of breath. Use over 5-15minutes. 360 mL 3 promethazine (PHENERGAN) 25 mg tablet Take 1 tablet by mouth every 6 hours as needed. 12 tablet 0 ProAir RespiClick 90 mcg/actuation breath activated (albuterol sulfate) Inhale 2 Puffs as instructed every 6 hours as needed. 1 Each 5 No current facility-administered medications for this visit. ROS Constitutional: (+) weight loss Gastrointestinal: (+) belching, (+) abdominal bloating, (?) nausea Genitourinary: (+) decreased libido Musculoskeletal: (+) knee pain, (+) foot pain Respiratory: (?) snoring Endocrine: (+) hot flashes Occupation: Unemployed and filing for disability - hearing in November 2024 Contraception: hysterectomy BP 153/84 Pulse 72 Wt (!) 138.8 kg (306 lb) LMP 12/01/2010 (Exact Date) SpO2 99% BMI 53.52 kg/m? PE GENERAL: Pleasant, well-nourished, no acute distress PULMONARY: normal inspiratory effort NEURO: alert and oriented x3 Results: recent labs reviewed with the patient. Glucose (mg/dL) Date Value 04/26/2024 84 10/30/2020 74 Potassium (mmol/L) Date Value 04/26/2024 4.0 10/30/2020 4.1 Sodium (mmol/L) Date Value 04/26/2024 140 10/30/2020 142 Chloride (mmol/L) Date Value 04/26/2024 103 10/30/2020 104 CO2 (mmol/L) Date Value 04/26/2024 27 10/30/2020 24 Creatinine (mg/dL) Date Value 04/26/2024 0.75 10/30/2020 0.80 BUN (mg/dL) Date Value 04/26/2024 15 10/30/2020 13 Anion Gap (mmol/L) Date Value 04/26/2024 10 10/30/2020 14 Calcium (mg/dL) Date Value 10/30/2020 9.7 Calcium, Total (mg/dL) Date Value 04/26/2024 9.6 Latest Ref Rng AND Units 11/01/2022 11/07/2023 04/26/2024 CMP Sodium 136 - 144 mmol/L 139 141 140 Potassium 3.7 - 5.1 mmol/L 4.2 4.2 4.0 Chloride 98 - 107 mmol/L 103 106 103 CO2 22 - 30 mmol/L 24 24 27 Glucose 74 - 99 mg/dL 79 93 84 BUN 7 - 21 mg/dL 11 14 15 Creatinine 0.58 - 0.96 mg/dL 0.89 0.81 0.75 EGFR >=60 mL/min/1.73m? 80 89 97 Protein, Total 6.3 - 8.0 g/dL 6.9 6.9 Albumin 3.9 - 4.9 g/dL 4.5 4.3 Calcium 8.5 - 10.2 mg/dL 9.7 9.6 9.6 Bilirubin, Total 0.2 - 1.3 mg/dL 0.2 0.2 AST 13 - 35 U/L 20 17 ALT 7 - 38 U/L 22 21 Alkaline Phosphatase 34 - 123 U/L 68 77 Cholesterol, Total (mg/dL) Date Value 11/07/2023 181 03/09/2019 173 Total Cholesterol, Nonfasting (mg/dL) Date Value 10/30/2020 179 HDL Cholesterol (mg/dL) Date Value 11/07/2023 53 03/09/2019 66 HDL Cholesterol, Nonfasting (mg/dL) Date Value 10/30/2020 60 LDL Cholesterol, Calculated (mg/dL) Date Value 11/07/2023 97 03/09/2019 84 LDL Cholesterol Calculated, Nonfasting (mg/dL) Date Value 11/01/2022 89 10/30/2020 89 Triglyceride (mg/dL) Date Value 11/07/2023 155 03/09/2019 113 Triglycerides, Nonfasting (mg/dL) Date Value 10/30/2020 151 Latest Ref Rng AND Units 12/21/2021 11/01/2022 11/07/2023 CBC WBC 3.70 - 11.00 k/uL 7.43 6.73 6.23 RBC 3.90 - 5.20 m/uL 4.74 4.70 4.89 Hemoglobin 11.5 - 15.5 g/dL 12.9 12.9 12.9 Hematocrit 36.0 - 46.0 % 41.2 39.9 40.0 MCV 80.0 - 100.0 fL 86.9 84.9 81.8 MCH 26.0 - 34.0 pg 27.2 27.4 26.4 MCHC 30.5 - 36.0 g/dL 31.3 32.3 32.3 RDW-CV 11.5 - 15.0 % 13.3 13.2 14.0 Platelet Count 150 - 400 k/uL 391 344 357 MPV 9.0 - 12.7 fL 11.0 11.2 9.6 Baso% % 1.2 1.3 Abs Neut (ANC) 1.45 - 7.50 k/uL 4.03 4.39 Abs Lymph 1.00 - 4.00 k/uL 2.13 1.43 Abs [place] <0.87 k/uL 0.57 0.49 Abs Eosin <0.46 k/uL 0.58 0.31 Abs Baso <0.11 k/uL 0.09 0.09 NRBC /100 WBC 0.0 0.0 Vitamin D 25 Hydroxy Date Value Ref Range Status 11/07/2023 26.8 (L) 31.0 - 80.0 ng/mL Final Comment: Classification of 25 OH Vitamin D status: Deficiency/Insufficiency: < or = 30 ng/ml. Sufficiency/Optimal Levels: 31-80 ng/mL Toxicity: > 100 ng/mL. Test performed by chemiluminescent immunoassay. TSH Date Value 11/07/2023 2.290 mIU/L 11/01/2022 1.850 mIU/L 10/08/2019 1.670 uU/mL 11/10/2018 2.560 uU/mL Hemoglobin A1C (%) Date Value 11/07/2023 5.3 11/01/2022 5.0 09/30/2021 5.0 10/30/2020 5.0 03/04/2018 4.7 Insulin Date Value Ref Range Status 11/07/2023 33.4 (H) 3.0 - 25.0 mU/L Final Anti-Obesity Medications >Saxenda/Wegovy/Ozempic: Cost. Ins coverage? Family or personal History of MEN2 or Medullary thyroid cancer: no >Metformin: eGFR > 30. No contraindications or medication interactions. Assessment/Plan: Cinthya Bone is a 53 year old yo with Class III obesity who presented today for follow up for supervised weight loss to treat and prevent related co-morbidities. 1. DRE on CPAP (G47.33) - Awaiting new CPAP mask; not currently using CPAP. - New mask expected to arrive within a few days. 2. Gastroesophageal reflux disease without esophagitis (K21.9) - Continue omeprazole (Prilosec) in the morning on an empty stomach. - Advised to avoid eating and then lying down. 3. Moderate persistent asthma without complication (HCC) (J45.40) - Well-controlled; continue current management. 4. Fatty liver (K76.0) - Discussed importance of weight management and dietary modifications. - Provided detailed nutritional guidance emphasizing high protein intake and low carbohydrate consumption. 5. Generalized anxiety disorder (F41.1) - Stable on current regimen of Effexor and bupropion (Wellbutrin). - Continues to see a counselor. 6. Arthritis of knee (M17.10) - Advised that weight loss may improve candidacy for knee surgery. 7. Hyperinsulinemia (E16.1) 8. Class 3 severe obesity with serious comorbidity and body mass index (BMI) of 50.0 to 59.9 in adult, unspecified obesity type (HCC) (E66.813) - Down 3 lbs since last visit; continues to follow dietary recommendations and increase physical activity. - Trulicity started mid-August; experiencing sulfur burps and bloating a few days after injection, but no nausea. - Discussed GLP-1 alternatives (Mounjaro, Ozempic, Zepbound) with fewer side effects, but not covered by [employer] insurance. - Discussed bariatric surgery as an option; provided detailed education on the process, including insurance coverage, required seminar, and patient navigator support. - Encouraged to consider bariatric surgery while young enough to benefit; explained that gastric bypass may be preferable due to GERD. - Advised to use Gas-X (simethicone) for bloating and to avoid eggs for a few days after injection to reduce sulfur burps. - Increase Trulicity dose from 0.75 mg to 1.5 mg weekly; provided 4-week supply. - DULAGLUTIDE 1.5 MG/0.5 ML SUBCUTANEOUS PEN INJECTOR - Continue metformin ER 500 mg daily with dinner; encouraged to increase to 2 pills with dinner or 1 pill BID with meals as tolerated to enhance Trulicity effect. - METFORMIN ER 500 MG TABLET,EXTENDED RELEASE 24 HR. - can increase dose as able. - Advised to increase protein intake to 30 grams per meal; provided suggestions for high-protein foods and snacks. -- We discussed several strategies to track food intake and increase mindfulness around eating will decrease calorie intake. She was counseled on the following: - Reviewed whole food balanced protein, controlled carbohydrate nutrition plan. - Given protein, whole food and high protein nutrition lists. - Encouraged to continue walking and increase physical activity as tolerated. - An overall goal of 150-200 minutes per week of exercise has been effective in weight loss and maintenance. She understands that there can be limitations of pharmacotherapy due to contraindications, side effects and cost. Patient was told to contact her insurance company to see what AOMs and supervised behavioral medical appointments are currently covered. Patient understands she will have more success when following a healthy lifestyle. We reviewed continued use of online tracking of daily weights, food journal and if desired physical activity. We reviewed that during management she is to report any concerning side effects of any pharmacotherapy she is placed on. She understands that she will need routine follow up in the office. Prior to any virtual visits in the future she will need to check her Blood pressure, weight, and pulse. Prescription instructions reviewed with patient as applicable. Potential red flag symptoms discussed with the patient. Reviewed appropriate action plan to take if red flag symptoms occur. Patient agreeable to treatment plan. - PCP ordered labs earlier today - magnesium, vitamin B12, thyroid panel, CMP, lipid panel, CBC, hemoglobin A1c, and vitamin D level. - Advised to notify via [employer] before 11/15 regarding Trulicity refill or dose adjustment. - Follow-up in 3 months Jennifer Ratliff CNP Advanced Education from the [employer] Medical Decision Making: Problems: Moderate: 2+ stable chronic illnesses and 1+ chronic illnesses with change Risk: Moderate: Drug management and Moderate risk from testing/treatment Medical Decision Making Level: 4 - Moderate CNOV Observed: 10/09/2024 9:40 AM Status: COMPLETED Source: [facility] CINTHYA BONE ([id number]) 1970 F NFR Date Time Provider Department 10/09/24 9:40 AM JUAN C LOPEZ During your visit today, we recorded the following information about you: Pulse Blood pressure Weight 81/minute 143/81 139 kg Juan C Lopez APRN.CNP 10/09/2024 9:26 AM Signed Chief Complaint Patient presents with: Follow Up HPI Cinthya Bone is a 53 year old female who presents here today for Above Complaints.. Patient presents for elevated BP. Patient reports she was noted to have BP's in the 170's at plasma donation center. Does not have hx of HTN. Past medical history, appointments, medications, allergies reviewed. Previous Medical History PAST MEDICAL HISTORY Diagnosis Date Allergic rhinitis, cause unspecified 09/10/2008 Arthritis Arthritis of knee 10/30/2020 Asthma Benign neoplasm of left breast 2018 COVID-19 virus infection 10/14/2021 10/14/2021 Environmental allergies Never formally tested. Sneezes, itches around cats. Excessive or frequent menstruation Heavy periods Fatty liver 01/04/2022 Noted on US 12/2021 Gastroesophageal reflux disease without esophagitis 09/10/2008 Hemorrhage of gastrointestinal tract, unspecified 05/10/2014 Irregular menstrual cycle Irregular periods Liver cyst 01/08/2022 MRI: 12/2021 Mild persistent asthma without complication (HCC) 12/11/2008 Obesity, Class III, BMI >= 40 (morbid obesity) E66.01 12/03/2016 Pneumonia 2008 Required intubation Restless leg syndrome 10/30/2020 Shortness of breath 2007 Was on a ventolator with pneumonia Situational depression 09/28/2022 Tonsil asymmetry 03/04/2018 Lt at 2+ Rt normal. chronic Well adult exam 09/01/2018 Done 10/30/2020 Previous Surgical History PAST SURGICAL HISTORY Procedure Laterality Date COLONOSCOPY FLX DX W/COLLJ SPEC WHEN PFRMD 05/10/2014 Colonoscopy EXC BREAST LES PREOP PLMT RAD MARKER OPEN 1 LES Left 01/05/2019 HYSTEROSCOPY, DIAGNOSTIC (SEPARATE 06/2010 Hysteroscopy AND curettage INCISE FINGER TENDON SHEATH Right 06/04/2020 Right ring trigger finger LIG/TRNSXJ FLP TUBE ABDL/VAG APPR UNI/BI Tubal ligation VAGINAL HYSTERECTOMY UTERUS 250 GM/< 12/08/2010 TVH Family History FAMILY HISTORY Problem Relation Age of Onset Obesity Mother Cancer Father Stomach Heart Attack Brother 52 Obesity Brother Hypertension Brother Obesity Maternal Grandmother Obesity Maternal Grandfather Heart Paternal Grandmother COPD Paternal Grandmother Emphysema. Smoker. Obesity Paternal Grandmother Obesity Paternal Grandfather Asthma Son Breast Cancer Paternal Aunt Diabetes Paternal Aunt Patient Allergies ALLERGIES Allergen Reactions Cats Swelling rash Current Medications Current Outpatient Medications on File Prior to Visit Medication Sig omeprazole (PRILOSEC) 20 mg capsule TAKE TWO CAPSULES BY MOUTH ONCE DAILY BEFORE BREAKFAST diclofenac, EC, (VOLTAREN) 75 mg EC tablet Take 1 tablet by mouth two times a day. dulaglutide (TRULICITY) 0.75 mg/0.5 mL pen injector Inject 0.75 mg subcutaneously one time a week for 28 days. montelukast (SINGULAIR) 10 mg tablet TAKE 1 TABLET BY MOUTH ONCE DAILY AT BEDTIME tiotropium bromide (SPIRIVA RESPIMAT) 1.25 mcg/actuation inhaler Inhale 2 puffs as instructed once daily. venlafaxine ER (EFFEXOR XR) 37.5 mg 24 hr capsule Take 1 capsule by mouth once daily. metFORMIN ER (GLUCOPHAGE XR) 500 mg 24 hr tablet Take 2 tablets by mouth daily with dinner. rOPINIRole (REQUIP) 0.5 mg tablet Take 1 tablet by mouth daily at bedtime. Take with 1mg tab for total of 1.5mg. rOPINIRole (REQUIP) 1 mg tablet Take 1 tablet by mouth daily at bedtime. cyclobenzaprine (FLEXERIL) 10 mg tablet Take 1 tablet by mouth three times a day as needed for muscle spasm. buPROPion XL (WELLBUTRIN XL) 300 mg 24 hr tablet Take 1 tablet by mouth once daily. cyanocobalamin (VITAMIN B-12) 1,000 mcg tab Take 1,000 mcg by mouth once daily. cholecalciferol (VITAMIN D-3) 400 unit tab Take 400 Units by mouth once daily. mometasone-formoterol (DULERA) 200-5 mcg/actuation inhaler Inhale 2 Puffs as instructed two times a day. loratadine (CLARITIN) 10 mg tablet Take 1 tablet by mouth once daily as needed. FOR ALLERGY SYMPTOMS albuterol HFA (PROVENTIL HFA, VENTOLIN HFA) 90 mcg/actuation inhaler INHALE 2 PUFFS BY MOUTH EVERY 6 HOURS NEEDED FOR SHORTNESS OF BREATH AND WHEEZING Nebulizer Accessories kit Provide 1 kit. albuterol (PROVENTIL) 2.5 mg /3 mL (0.083 %) nebulizer solution Use 3 mL via nebulizer every 4 hours as needed for wheezing/shortness of breath. Use over 5-15minutes. promethazine (PHENERGAN) 25 mg tablet Take 1 tablet by mouth every 6 hours as needed. ProAir RespiClick 90 mcg/actuation breath activated (albuterol sulfate) Inhale 2 Puffs as instructed every 6 hours as needed. No current facility-administered medications on file prior to visit. Social History SOCIAL HISTORY[1] Review of Symptoms REVIEW OF SYSTEMS SEE HPI EXAM: BP 143/81 Pulse 81 Wt (!) 139 kg (306 lb 7 oz) LMP 12/01/2010 (Exact Date) BMI 53.60 kg/m? General Appearance: Well appearing, alert, in no acute distress, well-hydrated, well nourished. Lungs: Lungs clear to auscultation. No wheezing, rhonchi, rales.. Heart: RRR without murmur, gallop, or rubs. No ectopy. Health Maintenance List Anxiety Screening Never done Shingrix Vaccine(1 of 2) Never done DTaP,Tdap,Td Vaccine(3 - Td or Tdap) due on 03/11/2023 Colorectal Cancer Screening due on 05/10/2024 Influenza Vaccine(1) due on 10/22/2024 Annual PCP Team Chronic Disease Visit due on 06/07/2025 Mammogram Screening due on 09/24/2025 Diabetes Screening due on 04/27/2027 Lipid Screening due on 11/06/2028 Hepatitis B Vaccine Completed Hepatitis C Screening Completed Pneumococcal Vaccine: 50+ Completed Cervical Cancer Screening Discontinued HIV Screening Discontinued Data reviewed Last 5 Encounter BP Readings: Date: BP: 10/09/2024 143/81 08/10/2024 130/81 07/17/2024 142/84 06/07/2024 132/85 06/06/2024 139/83 ASSESSMENT/PLAN: 1. Elevated BP without diagnosis of hypertension - ICD9: 796.2, ICD10: R03.0 Likely PreHypertension - Encouraged dietary sodium restriction/DASH diet - Recommended regular aerobic exercise. - Recommend home blood pressure monitoring, to bring results in on next visit - Discussed need and benefit for weight loss. - Follow up in 1 month for BP recheck. - Goal of BP <130/80 - BLOOD PRESSURE TEST KIT-LARGE CUFF Juan C Lopez APRN.COMMERCIAL CRABBER [1] Social History Tobacco Use Smoking status: Never Smokeless tobacco: Never Tobacco comments: ETS exposure: Spouse and son smoke in home. Other family visitors smoke. Parents and Grandparents smoked in childhood home. Vaping Use Vaping status: Never Used Substance Use Topics Alcohol use: Not Currently Comment: social Drug use: Not Currently Allergies As of Date: 10/09/2024 Noted Allergy Reaction CATS 2011 7 - Swelling Comments: rash Date Reviewed: 10/09/2024 Reviewed by: Efrain Wright MA - Fully Assessed Reason for Visit: Follow Up [171] Primary Visit Diagnosis:Elevated BP without diagnosis of hypertension [R03.0] Other Visit Diagnoses:Medication management [Z79.899] Fatty liver [K76.0] Encounter for screening for diabetes mellitus [Z13.1] Vitamin D deficiency [E55.9] Encounter for lipid screening for cardiovascular disease [Z13.220, Z13.6] Order(s):Blood Pressure Test Kit-Large (QUICK RESPONSE BP MONITOR)1 each one time only for 1 dose.Disp: 1 eachRfl: 0 VITAMIN D 25 HYDROXY [SQVITD] Order #: [id number] FUTURE HEMOGLOBIN A1C [THNBP2P] Order #: [id number] FUTURE COMPLETE BLOOD COUNT AND DIFFERENTIAL [SQCBCDIF] Order #: [id number] FUTURE LIPID PANEL, NONFASTING [SQLIPNF] Order #: [id number] FUTURE COMPREHENSIVE METABOLIC PANEL [SQCMP] Order #: [id number] FUTURE THYROID STIMULATING HORMONE [SQTSH] Order #: [id number] FUTURE VITAMIN B12 [SQB12] Order #: [id number] FUTURE MAGNESIUM [SQMG1] Order #: [id number] FUTURE Prescriptions as of 10/09/2024 - Blood Pressure Test Kit-Large (QUICK RESPONSE BP MONITOR) 1 each one time only for 1 dose. - omeprazole (PRILOSEC) 20 mg capsule TAKE TWO CAPSULES BY MOUTH ONCE DAILY BEFORE BREAKFAST - diclofenac, EC, (VOLTAREN) 75 mg EC tablet Take 1 tablet by mouth two times a day. - dulaglutide (TRULICITY) 0.75 mg/0.5 mL pen injector Inject 0.75 mg subcutaneously one time a week for 28 days. - montelukast (SINGULAIR) 10 mg tablet TAKE 1 TABLET BY MOUTH ONCE DAILY AT BEDTIME - tiotropium bromide (SPIRIVA RESPIMAT) 1.25 mcg/actuation inhaler Inhale 2 puffs as instructed once daily. - venlafaxine ER (EFFEXOR XR) 37.5 mg 24 hr capsule Take 1 capsule by mouth once daily. - metFORMIN ER (GLUCOPHAGE XR) 500 mg 24 hr tablet Take 2 tablets by mouth daily with dinner. - rOPINIRole (REQUIP) 0.5 mg tablet Take 1 tablet by mouth daily at bedtime. Take with 1mg tab for total of 1.5mg. - rOPINIRole (REQUIP) 1 mg tablet Take 1 tablet by mouth daily at bedtime. - cyclobenzaprine (FLEXERIL) 10 mg tablet Take 1 tablet by mouth three times a day as needed for muscle spasm. - buPROPion XL (WELLBUTRIN XL) 300 mg 24 hr tablet Take 1 tablet by mouth once daily. - cyanocobalamin (VITAMIN B-12) 1,000 mcg tab Take 1,000 mcg by mouth once daily. - cholecalciferol (VITAMIN D-3) 400 unit tab Take 400 Units by mouth once daily. - mometasone-formoterol (DULERA) 200-5 mcg/actuation inhaler Inhale 2 Puffs as instructed two times a day. - loratadine (CLARITIN) 10 mg tablet Take 1 tablet by mouth once daily as needed. FOR ALLERGY SYMPTOMS - albuterol HFA (PROVENTIL HFA, VENTOLIN HFA) 90 mcg/actuation inhaler INHALE 2 PUFFS BY MOUTH EVERY 6 HOURS NEEDED FOR SHORTNESS OF BREATH AND WHEEZING - Nebulizer Accessories kit Provide 1 kit. - albuterol (PROVENTIL) 2.5 mg /3 mL (0.083 %) nebulizer solution Use 3 mL via nebulizer every 4 hours as needed for wheezing/shortness of breath. Use over 5-15minutes. - promethazine (PHENERGAN) 25 mg tablet Take 1 tablet by mouth every 6 hours as needed. - ProAir RespiClick 90 mcg/actuation breath activated (albuterol sulfate) Inhale 2 Puffs as instructed every 6 hours as needed. Problem List As Of Date 10/09/2024 Noted Resolved Shortness of breath [R06.02] 01/13/2011 Pneumonia, organism unspecified [J18.9] 07/15/2006 01/13/2011 Acute respiratory failure [J96.00] 07/15/2006 01/13/2011 ACUTE URI NOS [J06.9] 08/07/2007 09/10/2008 Gastroesophageal reflux disease without esophag*09/10/2008 Allergic rhinitis [J30.9] 09/10/2008 Moderate persistent asthma without complication*12/11/2008 Environmental allergies [Z91.09] Obesity, Class III, BMI >= 40 (morbid obesity) *12/03/2016 Irritable mood [R45.4] 03/04/2018 Post menopausal syndrome [N95.1] 03/04/2018 Tonsil asymmetry [J35.8] 03/04/2018 Encounter for screening for diabetes mellitus [*03/04/2018 Well adult exam [Z00.00] 09/01/2018 Medication management [Z79.899] 09/01/2018 Arthritis of knee [M17.10] 10/30/2020 Restless leg syndrome [G25.81] 10/30/2020 COVID-19 virus infection [U07.1] 10/14/2021 Fatty liver [K76.0] 01/04/2022 Liver cyst [K76.89] 01/08/2022 Situational depression [F43.21] 09/28/2022 DRE on CPAP [G47.33] 11/01/2023 Class 3 severe obesity with serious comorbidity*12/21/2023 Hyperinsulinemia [E16.1] 12/21/2023 Acute right-sided thoracic back pain [M54.6] 04/27/2024 Prescriptions ordered this encounter Disp Refills Start End BLOOD PRESSURE TEST KIT-LARGE CUFF 1 ea* 0 10/09/2024 10/09/2024 Route: [facility] each one time only for 1 dose. Disposition: Return in about 2 weeks (around 10/23/2024). Follow-up and Disposition History for Encounter Date Provider Department Center 10/09/2024 [id number]-ADJROEJUAN C LOPEZ [facility] Encounter Status:Closed by JUAN C LOPEZ on 10/09/24 CBC W AUTO DIFF BLD Collected: 10/09/2024 9:[address] atus: F Source: [facility] Order Comment: Specimen Type : BLOOD SPECIMEN Ordering Facility: [facility] Address: [address] [place] [address] TYPE CODE TESTS RESULT OUT OF RANGE REFERENCE UNITS LAB 6690-2([facility]) WBC # Bld Auto 8.00 3.70-11.00 k/uL LAB 789-8([facility]) RBC # Bld Auto 4.77 3.90-5.20 m/ uL LAB 718-7([facility]) Hgb Bld-mCnc 12.9 11.5-15.5 g/dL LAB 4544-3([facility]) Hct VFr Bld Auto 40.5 36.0-46.0 % LAB 787-2([facility]) MCV RBC Auto 84.9 80.0-100.0 fL LAB 785-6([facility]) MCH RBC Qn Auto 27.0 26.0-34.0 p g LAB 786-4([facility]) MCHC RBC Auto-mCnc 31.9 30.5-36.0 g/dL LAB 31382-9([facility]) RDW RBC-Rto 13.8 11.5-15.0 % LAB 777-3([facility]) Platelet # Bld Auto 371 150-400 k/uL LAB 26043-0([facility]) PMV Bld Auto 11.3 9.0-12.7 fL LAB 770-8([facility]) Neutrophils/leuk NFr Bld Auto 61.4 % LAB 751-8([facility]) Neutrophils # Bld Auto 4.91 1.45-7.50 k/uL LAB 736-9([facility]) Lymphocytes/leuk NFr Bld Auto 23.5 % LAB 731-0([facility]) Lymphocytes # Bld Auto 1.88 1.00-4.00 k/uL LAB 5905-5([facility]) Monocytes/leuk NFr Bld Auto 8.1 % LAB 742-7([facility]) Monocytes # Bld Auto 0.65 <0.87 k/uL LAB 713-8([facility]) Eosinophil/leuk NFr Bld Auto 5.0 % LAB 711-2([facility]) Eosinophil # Bld Auto 0.40 <0.46 k/uL LAB 706-2([facility]) Basophils/leuk NFr Bld Auto 1.4 % LAB 704-7([facility]) Basophils # Bld Auto 0.11 High <0.11 k/uL LAB 11949-4(LOINC) Imm Granulocytes/ping k NFr Bld Auto 0.6 % LAB 77106-4(LOINC) Imm Granulocytes # Bld Auto 0.05 <0.10 k/uL LAB 01690-5(LOINC) nRBC/100 WBC Bld-Rto 0.0 /100 WBC LAB 771-6(LOINC) nRBC # Bld Auto <0.01 <0.01 k/u L LAB 74544-9[facility]) Differential method Bld Auto Performed By: #### 48588-5 # ### [facility] CLIA [id number] [address] [place] [address] OF TIN 25(OH)D3 SERPL-MCNC Collected: 10/10/19 9:36 AM Status: F Source: [facility] Order Comment: Specimen Type : BLOOD SPECIMEN Ordering Facility: [facility] Address: [address] [place] [address] TYPE CODE TESTS RESULT OUT OF RANGE REFERENCE UNITS LAB 1988-04([facility]) 25(OH)D3 SerPl-mCnc 43.6 31.0-80.0 ng/mL Result Comment: Classificati on of 25 OH Vitamin D status: Deficiency/Insufficiency: < or = 30 ng/ml. Sufficiency/Optimal Levels: 31-80 ng/mL Toxicity: > 100 ng/mL. Test performed by chemiluminescent immunoassay. Performed By: #### 1988- ## ## [facility] CLIA [id number] [address] [place] [address] OF TIN VIT B12 SERPL-MCNC Collected: 10/09/2024 9:36 AM Sta tus: F Source: [facility] Order Comment: Specimen Type : BLOOD SPECIMEN Ordering Facility: [facility] Address: [address] [place] [address] TYPE CODE TESTS RESULT OUT OF RANGE REFERENCE UNITS LAB 2131-9([facility]) Vit B12 SerPl-mCnc 3733 253-6926 pg/mL Performed By: #### 2132-9 ## ## [facility] CLIA [id number] [address] [place] [address] STATES OF [place] DEPRECATED HGB A1C BLD Collected: 10/09 9:36 AM Status: F Source: [facility] Order Comment: Specimen Type : BLOOD SPECIMEN Ordering Facility: [facility] Address: [address] [place] [address] TYPE CODE TESTS RESULT OUT OF RANGE REFERENCE UNITS LAB 4548-4(INC) HbA1c MFr Bld 5.2 4.3-5.6 % Result Comment: [place] Wendy betes Association guidelines indicate that patients with HgbA1c in the range 5.7-6.4% are at increased risk for development of diabetes, and intervention by lifestyle modification may be beneficial. HgbA1c greater or equal to 6.5% is considered diagnostic of diabetes. LAB 52619-1([facility]) Est. average glucose Bld gHb Est-mCnc 103 mg/dL Result Comment: eAG: (Estima tony average glucose) is a calculated value from HgbA1c and is outside industrial sales representative of the average blood glucose level in the last 2-3 month period. Performed By: #### 19443-2 # ### [facility] CLIA [id number] [address] [place] [address] COMP METAB 2000 PNL SERPL Collected: 9:36 AM Status: F Source: [facility] Comment: Specimen Type : BLOOD SPECIMEN Ordering Facility: [facility] Address: [address] [place] [address] TYPE CODE TESTS RESULT OUT OF RANGE REFERENCE UNITS LAB 2885-2(LOINC) Prot SerPl-mCnc 7.1 6.3-8.0 g/dL LAB 175-7(LOINC) Albumin SerPl-mCnc 4.3 3.9-4.9 g/dL LAB 28411-3(LOINC) Calcium SerPl-mCnc 10.0 8.5-10.2 mg/dL LAB 1974-2(LOINC) Bilirub SerPl-mCnc 0.2 0.2-1.3 mg/dL LAB 6768-6(LOINC) ALP SerPl-cCnc 60 34-123 U/L LAB 1920-8(LOINC) AST SerPl-cCnc 19 13-35 U/L LAB 1742-6(LOINC) ALT SerPl-cCnc 30 7-38 U/L LAB 2345-7(LOINC) Glucose SerPl-mCnc 85 74-99 mg/dL Result Comment: The [place] Diabetes Association (ADA) provides guidance for cutoff values for fasting glucose and random glucose. The ADA defines fasting as no caloric intake for at least 8 hours. Fasting plasma glucose results between 100 to 125 mg/dL indicate increased risk for diabetes (prediabetes). Fasting plasma glucose results greater than or equal to 126 mg/dL meet the criteria for diagnosis of diabetes. In the absence of unequivocal hyperglycemia, results should be confirmed by repeat testing. In a patient with classic symptoms of hyperglycemia or hyperglycemic crisis, random plasma glucose results greater than or equal to 200 mg/dL meet the criteria for diagnosis of diabetes. Reference: Standards of Medical Care in Diabetes 2016, [place] Diabetes Association. Diabetes Care. 2016.39(Suppl 1). LAB 3094-0(LOINC) BUN SerPl-mCnc 10 7-21 mg/dL LAB 2160-0(LOINC) Creat SerPl-mCnc 0.90 0.58-0.96 mg/dL LAB 2951-2(LOINC) Sodium SerPl-sCnc 138 136-144 mmol/L LAB 2823-3(LOINC) Potassium SerPl-sCnc 4.5 3.7-5.1 mmol/L LAB 2075-0(LOINC) Chloride SerPl-sCnc 102 98-107 mmol/L LAB 2028-9(LOINC) CO2 SerPl-sCnc 24 22-30 mmol/L LAB 87431-1(LOINC) Anion Gap SerPl-sCnc 12 8-15 mmol/L LAB 06966-4(LOINC) eGFRcr SerPlBld CKD-EPI 2020 78 >=60 mL/min/1. 73m??? Result Comment: Estimated Gl omerular Filtration Rate (eGFR) is calculated using the 2020 CKD-EPI creatinine equation. This equation utilizes serum creatinine, sex, and age as parameters. The creatinine assay has traceable calibration to isotope dilution-mass spectrometry. Refer to KDIGO guidelines for clinical interpretation. In patients with unstable renal function, e.g. those with acute kidney injury, the eGFR may not accurately reflect actual GFR. Performed By: #### 08742-8, LIPNF, 3016-3, 97617-0 #### [facility] CLIA [id number] [address] [place] [address] [place] [address] [place] LIPID PANEL, NONFASTING Collected: 10/09/2024 9:36 AM Status: F Source: [facility] Order Comment: Specimen Type : BLOOD SPECIMEN Ordering Facility: [facility] Address: [address] [place] [address] TYPE CODE TESTS RESULT OUT OF RANGE REFERENCE UNITS LAB CHOLNF TOTAL CHOLESTEROL NF 191 <200 mg/dL Result Comment: <200 mg/dL, Desirable 200-239 mg/dL, Borderline high >239 mg/dL, High LAB TRIGNF TRIGLYCERIDES, NF 213 High <150 mg/dL Result Comment: <150 mg/dL, Normal 150-199 mg/dL, Borderline high 200-499 mg/dL, High >499 mg/dL, Very high LAB HDLNF HDL CHOLESTEROL, NF 53 >39 mg/dL Result Comment: 40-59 mg/dL, Acceptable >59 mg/dL, High: Negative risk factor for coronary heart disease <40 mg/dL, Low: Positive risk factor for coronary heart disease LAB LDLNF LDL CHOLESTEROL CALCULATED, NF 102 High <100 mg/dL Result Comment: <100 mg/dL, Optimal 100-129 mg/dL, Near optimal/above optimal 130-159 mg/dL, Borderline high 160-189 mg/dL, High >189 mg/dL, Very high Secondary prevention optimal LDL Cholesterol levels are recommended to be <70 mg/dL LDL cholesterol is calculated using the Page-NIH equation. LAB NOHDLN NON HDL CHOL, NF 138 High <130 mg/dL Result Comment: <130 mg/dL, Optimal 130-159 mg/dL, Near optimal/above optimal 160-189 mg/dL, Borderline high 190-219 mg/dL, High >219 mg/dL, Very high Secondary prevention optimal non HDL Cholesterol levels are recommended to be <100 mg/dL LAB VLDLNF VLDL CHOLESTEROL, NF 35 High <30 mg/dL LAB TCHDLN T CHOL/HDL RATIO NF 3.60 <5.10 mg/dL LAB LDLHDN LDL/HDL RATIO, NF 1.92 <2.54 mg/dL Result Comment: Reference: 1. National Cholesterol Education Program ATP III Guideline At-A-Glance Quick Desk Reference: National Heart, Lung, and Blood [place]. National Institutes of Health. 2001: NIH Publication No. 01-3305. 2. An International Atherosclerosis Society position paper: global recommendations for the management of dyslipidemia: executive summary, Atherosclerosis. 2014: 232(2):410-413. Performed By: #### 09500-2, LIPNF, 3016-3, 49212-1 #### [facility] CLIA [id number] [address] [place], [place] [id number] [place] MAGNESIUM SERPL-MCNC Collected: 10/09/2024 9:36 AM S tatus: F Source: [facility] Order Comment: Specimen Type : BLOOD SPECIMEN Ordering Facility: [facility] Address: [address] [place] [address] TYPE CODE TESTS RESULT OUT OF RANGE REFERENCE UNITS LAB 20160-9(LOINC) Magnesium SerPl-mCnc 2.0 1.7-2.3 mg/dL Performed By: #### 71781-2, LIPNF, 3016-3, 87677-6 #### [facility] CLIA [id number] [address] [place], [place] [id number] [place] TSH SERPL-ACNC Collected: 9:36 AM Status: F Source: [facility] Order Comment: Specimen Type : BLOOD SPECIMEN Ordering Facility: [facility] Address: [address] [place] [address] TYPE CODE TESTS RESULT OUT OF RANGE REFERENCE UNITS LAB 3016-3(LOINC) TSH SerPl-aCnc 4.040 0.270-4.200 mIU/L Performed By: #### 54174-5, LIPNF, 3016-3, 58935-7 #### [facility] CLIA [id number] [address] [place], [place] [id number] [place] PROGRESS Observed: 10/09/2024 9:17 AM Status: COMPLETED Source: [facility] HNO ID: [id number] Author: JUAN C LOPEZ APRN.COMMERCIAL CRABBER Service: ? Author Type: Nurse Practitioner Type: Progress Notes Filed: 10/09/2024 09:26 Note Text: Chief Complaint Patient presents with: Follow Up HPI Cinthya Bone is a 53 year old female who presents here today for Above Complaints.. Patient presents for elevated BP. Patient reports she was noted to have BP's in the 170's at [facility] donation center. Does not have hx of HTN. Past medical history, appointments, medications, allergies reviewed. Previous Medical History PAST MEDICAL HISTORY Diagnosis Date Allergic rhinitis, cause unspecified 09/10/2008 Arthritis Arthritis of knee 10/30/2020 Asthma Benign neoplasm of left breast 2018 COVID-19 virus infection 10/14/2021 10/14/2021 Environmental allergies Never formally tested. Sneezes, itches around cats. Excessive or frequent menstruation Heavy periods Fatty liver 01/04/2022 Noted on US 12/2021 Gastroesophageal reflux disease without esophagitis 09/10/2008 Hemorrhage of gastrointestinal tract, unspecified 05/10/2014 Irregular menstrual cycle Irregular periods Liver cyst 01/08/2022 MRI: 12/2021 Mild persistent asthma without complication (HCC) 12/11/2008 Obesity, Class III, BMI >= 40 (morbid obesity) E66.01 12/03/2016 Pneumonia 2008 Required intubation Restless leg syndrome 10/30/2020 Shortness of breath 2007 Was on a ventolator with pneumonia Situational depression 09/28/2022 Tonsil asymmetry 03/04/2018 Lt at 2+ Rt normal. chronic Well adult exam 09/01/2018 Done 10/30/2020 Previous Surgical History PAST SURGICAL HISTORY Procedure Laterality Date COLONOSCOPY FLX DX W/COLLJ SPEC WHEN PFRMD 05/10/2014 Colonoscopy EXC BREAST LES PREOP PLMT RAD MARKER OPEN 1 LES Left 01/05/2019 HYSTEROSCOPY, DIAGNOSTIC (SEPARATE 06/2010 Hysteroscopy AND curettage INCISE FINGER TENDON SHEATH Right 06/04/2020 Right ring trigger finger LIG/TRNSXJ FLP TUBE ABDL/VAG APPR UNI/BI Tubal ligation VAGINAL HYSTERECTOMY UTERUS 250 GM/< 12/08/2010 TVH Family History FAMILY HISTORY Problem Relation Age of Onset Obesity Mother Cancer Father Stomach Heart Attack Brother 52 Obesity Brother Hypertension Brother Obesity Maternal Grandmother Obesity Maternal Grandfather Heart Paternal Grandmother COPD Paternal Grandmother Emphysema. Smoker. Obesity Paternal Grandmother Obesity Paternal Grandfather Asthma Son Breast Cancer Paternal Aunt Diabetes Paternal Aunt Patient Allergies ALLERGIES Allergen Reactions Cats Swelling rash Current Medications Current Outpatient Medications on File Prior to Visit Medication Sig omeprazole (PRILOSEC) 20 mg capsule TAKE TWO CAPSULES BY MOUTH ONCE DAILY BEFORE BREAKFAST diclofenac, EC, (VOLTAREN) 75 mg EC tablet Take 1 tablet by mouth two times a day. dulaglutide (TRULICITY) 0.75 mg/0.5 mL pen injector Inject 0.75 mg subcutaneously one time a week for 28 days. montelukast (SINGULAIR) 10 mg tablet TAKE 1 TABLET BY MOUTH ONCE DAILY AT BEDTIME tiotropium bromide (SPIRIVA RESPIMAT) 1.25 mcg/actuation inhaler Inhale 2 puffs as instructed once daily. venlafaxine ER (EFFEXOR XR) 37.5 mg 24 hr capsule Take 1 capsule by mouth once daily. metFORMIN ER (GLUCOPHAGE XR) 500 mg 24 hr tablet Take 2 tablets by mouth daily with dinner. rOPINIRole (REQUIP) 0.5 mg tablet Take 1 tablet by mouth daily at bedtime. Take with 1mg tab for total of 1.5mg. rOPINIRole (REQUIP) 1 mg tablet Take 1 tablet by mouth daily at bedtime. cyclobenzaprine (FLEXERIL) 10 mg tablet Take 1 tablet by mouth three times a day as needed for muscle spasm. buPROPion XL (WELLBUTRIN XL) 300 mg 24 hr tablet Take 1 tablet by mouth once daily. cyanocobalamin (VITAMIN B-12) 1,000 mcg tab Take 1,000 mcg by mouth once daily. cholecalciferol (VITAMIN D-3) 400 unit tab Take 400 Units by mouth once daily. mometasone-formoterol (DULERA) 200-5 mcg/actuation inhaler Inhale 2 Puffs as instructed two times a day. loratadine (CLARITIN) 10 mg tablet Take 1 tablet by mouth once daily as needed. FOR ALLERGY SYMPTOMS albuterol HFA (PROVENTIL HFA, VENTOLIN HFA) 90 mcg/actuation inhaler INHALE 2 PUFFS BY MOUTH EVERY 6 HOURS NEEDED FOR SHORTNESS OF BREATH AND WHEEZING Nebulizer Accessories kit Provide 1 kit. albuterol (PROVENTIL) 2.5 mg /3 mL (0.083 %) nebulizer solution Use 3 mL via nebulizer every 4 hours as needed for wheezing/shortness of breath. Use over 5-15minutes. promethazine (PHENERGAN) 25 mg tablet Take 1 tablet by mouth every 6 hours as needed. ProAir RespiClick 90 mcg/actuation breath activated (albuterol sulfate) Inhale 2 Puffs as instructed every 6 hours as needed. No current facility-administered medications on file prior to visit. Social History SOCIAL HISTORY[1] Review of Symptoms REVIEW OF SYSTEMS SEE HPI EXAM: BP 143/81 Pulse 81 Wt (!) 139 kg (306 lb 7 oz) LMP 12/01/2010 (Exact Date) BMI 53.60 kg/m? General Appearance: Well appearing, alert, in no acute distress, well-hydrated, well nourished. Lungs: Lungs clear to auscultation. No wheezing, rhonchi, rales.. Heart: RRR without murmur, gallop, or rubs. No ectopy. Health Maintenance List Anxiety Screening Never done Shingrix Vaccine(1 of 2) Never done DTaP,Tdap,Td Vaccine(3 - Td or Tdap) due on 03/11/2023 Colorectal Cancer Screening due on 05/10/2024 Influenza Vaccine(1) due on 10/22/2024 Annual PCP Team Chronic Disease Visit due on 06/07/2025 Mammogram Screening due on 09/24/2025 Diabetes Screening due on 04/27/2027 Lipid Screening due on 11/06/2028 Hepatitis B Vaccine Completed Hepatitis C Screening Completed Pneumococcal Vaccine: 50+ Completed Cervical Cancer Screening Discontinued HIV Screening Discontinued Data reviewed Last 5 Encounter BP Readings: Date: BP: 10/09/2024 143/81 08/10/2024 130/81 07/17/2024 142/84 06/07/2024 132/85 06/06/2024 139/83 ASSESSMENT/PLAN: 1. Elevated BP without diagnosis of hypertension - ICD9: 796.2, ICD10: R03.0 Likely PreHypertension - Encouraged dietary sodium restriction/DASH diet - Recommended regular aerobic exercise. - Recommend home blood pressure monitoring, to bring results in on next visit - Discussed need and benefit for weight loss. - Follow up in 1 month for BP recheck. - Goal of BP <130/80 - BLOOD PRESSURE TEST KIT-LARGE CUFF Juan C Lopez APRN.COMMERCIAL CRABBER [1] Social History Tobacco Use Smoking status: Never Smokeless tobacco: Never Tobacco comments: ETS exposure: Spouse and son smoke in home. Other family visitors smoke. Parents and Grandparents smoked in childhood home. Vaping Use Vaping status: Never Used Substance Use Topics Alcohol use: Not Currently Comment: social Drug use: Not Currently PROGRESS Observed: 09/24/2024 12:01 PM Status: COMPLETED Source: [facility] HNO ID: [id number] Author: ANGELIC WONG PA-C Service: ? Author Type: Physician Cyber Legal Advisor Type: Progress Notes Filed: 09/24/2024 12:01 Note Text: Large Joint Arthro/Inj: bilateral knee joints 09/24/2024 12:01 PM The procedure site was prepped in the usual sterile fashion. Site: bilateral knee joints Medications (Right): 6 mg betamethasone acetate-betamethasone sodium phosphate 6 mg/mL Medications (Left): 6 mg betamethasone acetate-betamethasone sodium phosphate 6 mg/mL Anesthetics (Right): 5 mL lidocaine (PF) 10 mg/mL (1 %) Anesthetics (Left): 5 mL lidocaine (PF) 10 mg/mL (1 %) Outcome: Tolerated well, no immediate complications Post-injection instructions were reviewed with the patient and the patient voiced understanding of these instructions. Informed Consent Consent Obtained: Verbal [place] Protocol A moment to CARE was completed. SIGN IN Sign in communication not applicable due to emergent procedure. Personnel directly involved with the procedure wore the appropriate PPE. Special Equipment: N/A Patient/Surrogate Stated/Verified: Patient name, Date of , Relevant allergies and Intended procedure TIME OUT Relevant labs, photos, and/or imaging studies have been reviewed. Consent documented and matches the intended procedure. Correct side/site marked and visible. Medications required for procedure verified. No fire risk assessment and interventions applicable. No implant(s) inserted. SIGN OUT No specimen collected. No post-procedure POC communication to the patient's multidisciplinary team (including the bedside nurse for hospitalized patients) applicable. CNOV Observed: 09/24/2024 11:30 AM Status: COMPLETED Source: [facility] Office Visit (ORTHWS) LIZANDROCINTHYA Rusty ([id number]) 1970 F NFR Date Time Provider Department 09/24/24 11:30 AM ANGELIC WONG During your visit today, we recorded the following information about you: Bo Lanier MA 09/24/2024 12:01 PM Signed AMB ROOMING INTAKE FLOWSHEET DATA Pain Pain Level: 3 Pain Location: (bilateral knees) Description: Aching Duration Amount of Time: 1 Duration Units: Months Frequency: Continuous Intervention/Comfort measure: Medication Angelic Wong PA-C 09/24/2024 12:01 PM Signed Large Joint Arthro/Inj: bilateral knee joints 09/24/2024 12:01 PM The procedure site was prepped in the usual sterile fashion. Site: bilateral knee joints Medications (Right): 6 mg betamethasone acetate-betamethasone sodium phosphate 6 mg/mL Medications (Left): 6 mg betamethasone acetate-betamethasone sodium phosphate 6 mg/mL Anesthetics (Right): 5 mL lidocaine (PF) 10 mg/mL (1 %) Anesthetics (Left): 5 mL lidocaine (PF) 10 mg/mL (1 %) Outcome: Tolerated well, no immediate complications Post-injection instructions were reviewed with the patient and the patient voiced understanding of these instructions. Informed Consent Consent Obtained: Verbal [place] Protocol A moment to CARE was completed. SIGN IN Sign in communication not applicable due to emergent procedure. Personnel directly involved with the procedure wore the appropriate PPE. Special Equipment: N/A Patient/Surrogate Stated/Verified: Patient name, Date of , Relevant allergies and Intended procedure TIME OUT Relevant labs, photos, and/or imaging studies have been reviewed. Consent documented and matches the intended procedure. Correct side/site marked and visible. Medications required for procedure verified. No fire risk assessment and interventions applicable. No implant(s) inserted. SIGN OUT No specimen collected. No post-procedure POC communication to the patient's multidisciplinary team (including the bedside nurse for hospitalized patients) applicable. Referring Provider: ANGELIC WONG [[id number]] Allergies As of Date: 09/24/2024 Noted Allergy Reaction CATS 2011 7 - Swelling Comments: rash Date Reviewed: 09/24/2024 Reviewed by: Bo Lanier MA - Fully Assessed Reason for Visit: Established Patient [175] Injections [199] Established Patient [175] Injections [199] Primary Visit Diagnosis:Primary osteoarthritis of both knees [M17.0] Order(s):Large Joint Arthro/Inj: bilateral knee joints [[id number]] Order #: [id number] [] betamethasone acetate-betamethasone sodium phosphate 6 mg injection (CELESTONE)Disp: Rfl: [] betamethasone acetate-betamethasone sodium phosphate 6 mg injection (CELESTONE)Disp: Rfl: [] lidocaine (PF) 10 mg/mL (1 %) 5 mL injection (XYLOCAINE)Disp: Rfl: [] lidocaine (PF) 10 mg/mL (1 %) 5 mL injection (XYLOCAINE)Disp: Rfl: Prescriptions as of 09/24/2024 - dulaglutide (TRULICITY) 0.75 mg/0.5 mL pen injector Inject 0.75 mg subcutaneously one time a week for 28 days. - diclofenac, EC, (VOLTAREN) 75 mg EC tablet Take 1 tablet by mouth two times a day. for pain. - montelukast (SINGULAIR) 10 mg tablet TAKE 1 TABLET BY MOUTH ONCE DAILY AT BEDTIME - tiotropium bromide (SPIRIVA RESPIMAT) 1.25 mcg/actuation inhaler Inhale 2 puffs as instructed once daily. - venlafaxine ER (EFFEXOR XR) 37.5 mg 24 hr capsule Take 1 capsule by mouth once daily. - metFORMIN ER (GLUCOPHAGE XR) 500 mg 24 hr tablet Take 2 tablets by mouth daily with dinner. - rOPINIRole (REQUIP) 0.5 mg tablet Take 1 tablet by mouth daily at bedtime. Take with 1mg tab for total of 1.5mg. - rOPINIRole (REQUIP) 1 mg tablet Take 1 tablet by mouth daily at bedtime. - omeprazole (PRILOSEC) 20 mg capsule TAKE TWO CAPSULES BY MOUTH ONCE DAILY BEFORE BREAKFAST - cyclobenzaprine (FLEXERIL) 10 mg tablet Take 1 tablet by mouth three times a day as needed for muscle spasm. - buPROPion XL (WELLBUTRIN XL) 300 mg 24 hr tablet Take 1 tablet by mouth once daily. - cyanocobalamin (VITAMIN B-12) 1,000 mcg tab Take 1,000 mcg by mouth once daily. - cholecalciferol (VITAMIN D-3) 400 unit tab Take 400 Units by mouth once daily. - mometasone-formoterol (DULERA) 200-5 mcg/actuation inhaler Inhale 2 Puffs as instructed two times a day. - loratadine (CLARITIN) 10 mg tablet Take 1 tablet by mouth once daily as needed. FOR ALLERGY SYMPTOMS - albuterol HFA (PROVENTIL HFA, VENTOLIN HFA) 90 mcg/actuation inhaler INHALE 2 PUFFS BY MOUTH EVERY 6 HOURS NEEDED FOR SHORTNESS OF BREATH AND WHEEZING - Nebulizer Accessories kit Provide 1 kit. - albuterol (PROVENTIL) 2.5 mg /3 mL (0.083 %) nebulizer solution Use 3 mL via nebulizer every 4 hours as needed for wheezing/shortness of breath. Use over 5-15minutes. - promethazine (PHENERGAN) 25 mg tablet Take 1 tablet by mouth every 6 hours as needed. - ProAir RespiClick 90 mcg/actuation breath activated (albuterol sulfate) Inhale 2 Puffs as instructed every 6 hours as needed. Problem List As Of Date 09/24/2024 Noted Resolved Shortness of breath [R06.02] 01/13/2011 Pneumonia, organism unspecified [J18.9] 07/15/2006 01/13/2011 Acute respiratory failure [J96.00] 07/15/2006 01/13/2011 ACUTE URI NOS [J06.9] 08/07/2007 09/10/2008 Gastroesophageal reflux disease without esophag*09/10/2008 Allergic rhinitis [J30.9] 09/10/2008 Moderate persistent asthma without complication*12/11/2008 Environmental allergies [Z91.09] Obesity, Class III, BMI >= 40 (morbid obesity) *12/03/2016 Irritable mood [R45.4] 03/04/2018 Post menopausal syndrome [N95.1] 03/04/2018 Tonsil asymmetry [J35.8] 03/04/2018 Encounter for screening for diabetes mellitus [*03/04/2018 Well adult exam [Z00.00] 09/01/2018 Medication management [Z79.899] 09/01/2018 Arthritis of knee [M17.10] 10/30/2020 Restless leg syndrome [G25.81] 10/30/2020 COVID-19 virus infection [U07.1] 10/14/2021 Fatty liver [K76.0] 01/04/2022 Liver cyst [K76.89] 01/08/2022 Situational depression [F43.21] 09/28/2022 DRE (obstructive sleep apnea) [G47.33] 11/01/2023 Class 3 severe obesity with serious comorbidity*12/21/2023 Hyperinsulinemia [E16.1] 12/21/2023 Acute right-sided thoracic back pain [M54.6] 04/27/2024 Prescriptions ordered this encounter Disp Refills Start End BETAMETHASONE ACETATE AND SODIUM ANNMARIE* 09/24/2024 09/24/2024 Route: Inj-ORTHO BETAMETHASONE ACETATE AND SODIUM ANNMARIE* 09/24/2024 09/24/2024 Route: Inj-ORTHO LIDOCAINE (PF) 10 MG/ML (1 %) INJECT* 09/24/2024 09/24/2024 Route: Inj-ORTHO LIDOCAINE (PF) 10 MG/ML (1 %) INJECT* 09/24/2024 09/24/2024 Route: Inj-ORTHO Encounter Status:Closed by ANGELIC WONG on 09/24/24 PROGRESS Observed: 09/24/2024 11:11 AM Status: COMPLETED Source: [facility] HNO ID: [id number] Author: BO LANIER MA Service: ? Author Type: Computerized Machine Fabric Cutter Type: Progress Notes Filed: 09/24/2024 12:01 Note Text: AMB ROOMING INTAKE FLOWSHEET DATA Pain Pain Level: 3 Pain Location: (bilateral knees) Description: Aching Duration Amount of Time: 1 Duration Units: Months Frequency: Continuous Intervention/Comfort measure: Medication MELINA SCREENING W SOLANGE Observed: 9:59 AM Status: F Source: [facility] * * *Final Report* * * DATE OF EXAM: Sep 24 2024 9:59AM [id number] - MELINA SCREENING W SOLANGE / PROCEDURE REASON: Encounter for screening mammogram for breast cancer * * * * Physician Interpretation * * * * RESULT: [place] [address] #[id number] - MELINA SCREENING W SOLANGE HISTORY: 53 year-old patient presents for screening. Patient is asymptomatic in both breasts. Patient states no personal history of breast cancer. The patient has a family history of breast cancer. COMPARISON STUDIES: The present examination has been compared to prior imaging studies dated 07/04/2019 (mammogram), 07/10/2020 (mammogram), 07/13/2021 (mammogram), 07/14/2022 (mammogram) and 08/08/2023 (mammogram). MAMMOGRAM TECHNIQUE: The study was acquired using full field digital technology and interpreted from soft copy. Digital Breast Tomosynthesis (DBT) images were obtained and used to assist in the interpretation of this examination. MAMMOGRAM FINDINGS: The breasts are almost entirely fatty. No suspicious masses, calcifications or other abnormalities are seen in either breast. There are no significant interval changes. IMPRESSION: There is no mammographic evidence of malignancy in either breast. Routine screening mammogram is recommended. Annual mammogram will be due in 1 year. BI-RADS Category 1: Negative RISK: Based on the Tyrer-Cuzick (TC) risk assessment model, this patient has a 8.8% lifetime risk of developing breast cancer, meaning they are at average risk for developing breast cancer. However, this is only an estimate based on available history provided on the patient's questionnaire. We encourage all patients to talk with their providers about these results, further recommendations for managing breast health, and appropriate supplemental screening options if the patient has dense breast tissue. Interpreting Radiologist: Christian Solo M.D. Electronically signed on: 09/25/2024 Animal Care Worker: LADONNA Transcribe Date/Time: Sep 24 2024 9:21A Dictated by: CHRISTIAN SOLO MD This examination was interpreted and the report reviewed and electronically signed by: CHRISTIAN SOLO MD on Sep 25 2024 1:06PM EST [id number] PROGRESS Observed: 09/24/2024 9:30 AM Status: COMPLETED Source: [facility] ID: [id number] Author: BEREKET MUNOZ, [facility] Service: ? Author Type: Technologist Type: Progress Notes Filed: 09/24/2024 09:55 Note Text: Radiology Service Progress Note PATIENT NAME: Cinthya Bone DATE OF SERVICE: September 24, 2024 TIME: 9:54 AM PATIENT IDENTITY VERIFICATION COMPLETED USING TWO (2) IDENTIFIERS: Name and Date of confirmed by patient verbally. FALL SCREENING: Has the patient had 2 falls in the last year or 1 fall with injury or currently using an Ambulatory Assistive Device (Walker, Cane, Wheelchair, Crutches, etc.)? No PATIENT GENDER DATA: Assigned female at . status: : No status: NO. PATIENT RELEVANT IMPLANT DATA REVIEWED: Not Applicable PATIENT PRESENTS WITH AN IMPLANTABLE OR ATTACHED MATERIALS MANAGEMENT SUPERVISOR: No RADIOLOGY DEPARTMENT: Mammography PERIPHERAL IV DATA: Not applicable SIGNED BY: Bereket Munoz [facility] September 24, 2024 9:54 AM KEVIN Observed: 09/20/2024 12:00 AM Status: COMPLETED Source: [facility] Telephone (OBGYWM) CINTHYA BONE ([id number]) 1970 F NFR Date Time Provider Department 09/20/24 JENNIFER RATLIFFWLetha During your visit today, we recorded the following information about you: Lillie Pablo RN 09/20/2024 2:40 PM Signed Patient needed to r/s wt management f/u for tomorrow due to of her aunt and tomorrow is the . Rescheduled patient to 10/08. She is out of her Trulicity. Next dose due on Tuesday. Can an extension be sent in until she is seen? MONE Douglas Amy, APRN.DAKOTA 09/20/2024 9:12 PM Signed Refill for one month sent to [facility]. Jennifer Ratliff APRN.Lillie Bynum RN 09/21/2024 8:22 AM Signed Left message for patient to call office. MONE Douglas Tara, RN 09/21/2024 8:26 AM Signed Pt notified and voiced understanding. Fay Bloom RN Allergies As of Date: 09/20/2024 Noted Allergy Reaction CATS 2011 7 - Swelling Comments: rash Date Reviewed: 08/10/2024 Reviewed by: Jennifer Ratliff APRN.COMMERCIAL CRABBER - Fully Assessed Reason for Visit: Medication Problem [65] Visit Diagnoses:Class 3 severe obesity with serious comorbidity and body mass index (BMI) of 50.0 to 59.9 in adult, unspecified obesity type (HCC) [E66.813, Z68.43] DRE on CPAP [G47.33] Hyperinsulinemia [E16.1] Order(s):dulaglutide (TRULICITY) 0.75 mg/0.5 mL pen injectorInject 0.75 mg subcutaneously one time a week for 28 days.Disp: 2 mLRfl: 0 Prescriptions as of 09/21/2024 - dulaglutide (TRULICITY) 0.75 mg/0.5 mL pen injector Inject 0.75 mg subcutaneously one time a week for 28 days. - diclofenac, EC, (VOLTAREN) 75 mg EC tablet Take 1 tablet by mouth two times a day. for pain. - montelukast (SINGULAIR) 10 mg tablet TAKE 1 TABLET BY MOUTH ONCE DAILY AT BEDTIME - tiotropium bromide (SPIRIVA RESPIMAT) 1.25 mcg/actuation inhaler Inhale 2 puffs as instructed once daily. - venlafaxine ER (EFFEXOR XR) 37.5 mg 24 hr capsule Take 1 capsule by mouth once daily. - metFORMIN ER (GLUCOPHAGE XR) 500 mg 24 hr tablet Take 2 tablets by mouth daily with dinner. - rOPINIRole (REQUIP) 0.5 mg tablet Take 1 tablet by mouth daily at bedtime. Take with 1mg tab for total of 1.5mg. - rOPINIRole (REQUIP) 1 mg tablet Take 1 tablet by mouth daily at bedtime. - omeprazole (PRILOSEC) 20 mg capsule TAKE TWO CAPSULES BY MOUTH ONCE DAILY BEFORE BREAKFAST - cyclobenzaprine (FLEXERIL) 10 mg tablet Take 1 tablet by mouth three times a day as needed for muscle spasm. - buPROPion XL (WELLBUTRIN XL) 300 mg 24 hr tablet Take 1 tablet by mouth once daily. - cyanocobalamin (VITAMIN B-12) 1,000 mcg tab Take 1,000 mcg by mouth once daily. - cholecalciferol (VITAMIN D-3) 400 unit tab Take 400 Units by mouth once daily. - mometasone-formoterol (DULERA) 200-5 mcg/actuation inhaler Inhale 2 Puffs as instructed two times a day. - loratadine (CLARITIN) 10 mg tablet Take 1 tablet by mouth once daily as needed. FOR ALLERGY SYMPTOMS - albuterol HFA (PROVENTIL HFA, VENTOLIN HFA) 90 mcg/actuation inhaler INHALE 2 PUFFS BY MOUTH EVERY 6 HOURS NEEDED FOR SHORTNESS OF BREATH AND WHEEZING - Nebulizer Accessories kit Provide 1 kit. - albuterol (PROVENTIL) 2.5 mg /3 mL (0.083 %) nebulizer solution Use 3 mL via nebulizer every 4 hours as needed for wheezing/shortness of breath. Use over 5-15minutes. - promethazine (PHENERGAN) 25 mg tablet Take 1 tablet by mouth every 6 hours as needed. - ProAir RespiClick 90 mcg/actuation breath activated (albuterol sulfate) Inhale 2 Puffs as instructed every 6 hours as needed. Problem List As Of Date 09/20/2024 Noted Resolved Shortness of breath [R06.02] 01/13/2011 Pneumonia, organism unspecified [J18.9] 07/15/2006 01/13/2011 Acute respiratory failure [J96.00] 07/15/2006 01/13/2011 ACUTE URI NOS [J06.9] 08/07/2007 09/10/2008 Gastroesophageal reflux disease without esophag*09/10/2008 Allergic rhinitis [J30.9] 09/10/2008 Moderate persistent asthma without complication*12/11/2008 Environmental allergies [Z91.09] Obesity, Class III, BMI >= 40 (morbid obesity) *12/03/2016 Irritable mood [R45.4] 03/04/2018 Post menopausal syndrome [N95.1] 03/04/2018 Tonsil asymmetry [J35.8] 03/04/2018 Encounter for screening for diabetes mellitus [*03/04/2018 Well adult exam [Z00.00] 09/01/2018 Medication management [Z79.899] 09/01/2018 Arthritis of knee [M17.10] 10/30/2020 Restless leg syndrome [G25.81] 10/30/2020 COVID-19 virus infection [U07.1] 10/14/2021 Fatty liver [K76.0] 01/04/2022 Liver cyst [K76.89] 01/08/2022 Situational depression [F43.21] 09/28/2022 DRE (obstructive sleep apnea) [G47.33] 11/01/2023 Class 3 severe obesity with serious comorbidity*12/21/2023 Hyperinsulinemia [E16.1] 12/21/2023 Acute right-sided thoracic back pain [M54.6] 04/27/2024 Prescriptions ordered this encounter Disp Refills Start End DULAGLUTIDE 0.75 MG/0.5 ML SUBCUTANE* 2 mL 0 09/20/2024 10/18/2024 Route: SQ Sig: Inject 0.75 mg subcutaneously one time a week for 28 days. Medications Discontinued During This Encounter Prescriptions - dulaglutide (TRULICITY) 0.75 mg/0.5 mL pen injector (Discontinued) Inject 0.75 mg subcutaneously one time a week for 28 days. Encounter Status:Closed by FAY BLOOM on 09/21/24 SHERYLUTRRUBEN Observed: 09/11/2024 12:00 AM Status: COMPLETED Source: [facility] Patient Outreach (FAMPWS) CINTHYA BONE ([id number]) 1970 F NFR Date Time Provider Department 09/11/24 SHASHI JONES FAMPWS During your visit today, we recorded the following information about you: Allergies As of Date: 09/11/2024 Noted Allergy Reaction CATS 2011 7 - Swelling Comments: rash Date Reviewed: 08/10/2024 Reviewed by: Jennifer Ratliff APRN.COMMERCIAL CRABBER - Fully Assessed Visit Diagnosis:Encounter for screening mammogram for breast cancer [Z12.31] Order(s):MELINA SCREENING W SOLANGE [[id number]] Order #: [id number] FUTURE Prescriptions as of 10/12/2024 - dulaglutide (TRULICITY) 1.5 mg/0.5 mL pen injector Inject 1.5 mg subcutaneously one time a week for 28 days. Patient should start on October 18, 2024. - omeprazole (PRILOSEC) 20 mg capsule TAKE TWO CAPSULES BY MOUTH ONCE DAILY BEFORE BREAKFAST - diclofenac, EC, (VOLTAREN) 75 mg EC tablet Take 1 tablet by mouth two times a day. - montelukast (SINGULAIR) 10 mg tablet TAKE 1 TABLET BY MOUTH ONCE DAILY AT BEDTIME - tiotropium bromide (SPIRIVA RESPIMAT) 1.25 mcg/actuation inhaler Inhale 2 puffs as instructed once daily. - venlafaxine ER (EFFEXOR XR) 37.5 mg 24 hr capsule Take 1 capsule by mouth once daily. - metFORMIN ER (GLUCOPHAGE XR) 500 mg 24 hr tablet Take 2 tablets by mouth daily with dinner. - rOPINIRole (REQUIP) 0.5 mg tablet Take 1 tablet by mouth daily at bedtime. Take with 1mg tab for total of 1.5mg. - rOPINIRole (REQUIP) 1 mg tablet Take 1 tablet by mouth daily at bedtime. - cyclobenzaprine (FLEXERIL) 10 mg tablet Take 1 tablet by mouth three times a day as needed for muscle spasm. - buPROPion XL (WELLBUTRIN XL) 300 mg 24 hr tablet Take 1 tablet by mouth once daily. - cyanocobalamin (VITAMIN B-12) 1,000 mcg tab Take 1,000 mcg by mouth once daily. - cholecalciferol (VITAMIN D-3) 400 unit tab Take 400 Units by mouth once daily. - mometasone-formoterol (DULERA) 200-5 mcg/actuation inhaler Inhale 2 Puffs as instructed two times a day. - loratadine (CLARITIN) 10 mg tablet Take 1 tablet by mouth once daily as needed. FOR ALLERGY SYMPTOMS - albuterol HFA (PROVENTIL HFA, VENTOLIN HFA) 90 mcg/actuation inhaler INHALE 2 PUFFS BY MOUTH EVERY 6 HOURS NEEDED FOR SHORTNESS OF BREATH AND WHEEZING - Nebulizer Accessories kit Provide 1 kit. - albuterol (PROVENTIL) 2.5 mg /3 mL (0.083 %) nebulizer solution Use 3 mL via nebulizer every 4 hours as needed for wheezing/shortness of breath. Use over 5-15minutes. - promethazine (PHENERGAN) 25 mg tablet Take 1 tablet by mouth every 6 hours as needed. - ProAir RespiClick 90 mcg/actuation breath activated (albuterol sulfate) Inhale 2 Puffs as instructed every 6 hours as needed. Problem List As Of Date 09/11/2024 Noted Resolved Shortness of breath [R06.02] 01/13/2011 Pneumonia, organism unspecified [J18.9] 07/15/2006 01/13/2011 Acute respiratory failure [J96.00] 07/15/2006 01/13/2011 ACUTE URI NOS [J06.9] 08/07/2007 09/10/2008 Gastroesophageal reflux disease without esophag*09/10/2008 Allergic rhinitis [J30.9] 09/10/2008 Moderate persistent asthma without complication*12/11/2008 Environmental allergies [Z91.09] Obesity, Class III, BMI >= 40 (morbid obesity) *12/03/2016 Irritable mood [R45.4] 03/04/2018 Post menopausal syndrome [N95.1] 03/04/2018 Tonsil asymmetry [J35.8] 03/04/2018 Encounter for screening for diabetes mellitus [*03/04/2018 Well adult exam [Z00.00] 09/01/2018 Medication management [Z79.899] 09/01/2018 Arthritis of knee [M17.10] 10/30/2020 Restless leg syndrome [G25.81] 10/30/2020 COVID-19 virus infection [U07.1] 10/14/2021 Fatty liver [K76.0] 01/04/2022 Liver cyst [K76.89] 01/08/2022 Situational depression [F43.21] 09/28/2022 DRE (obstructive sleep apnea) [G47.33] 11/01/2023 Class 3 severe obesity with serious comorbidity*12/21/2023 Hyperinsulinemia [E16.1] 12/21/2023 Acute right-sided thoracic back pain [M54.6] 04/27/2024 Encounter Status:Closed by RAMON PÉREZ on 10/12/24 KEVIN Observed: 09/03/2024 12:00 AM Status: COMPLETED Source: [facility] Telephone (ORTHWS) CINTHYA BONE Rusty ([id number]) 1970 F NFR Date Time Provider Department 09/03/24 MINA MAHER During your visit today, we recorded the following information about you: Deena Randle LPN 09/03/2024 2:00 PM Signed Patient calling in requesting to be scheduled for knee injections and also wondering if something stronger can be called in other than the Celebrex. ANUJ Grover Amy M, MA 09/04/2024 8:56 AM Signed I called and spoke with the patient. She is not due for next cortisone injection until 09/24/2024. She has been scheduled. She states the Celebrex is not working for her. She is asking if there is something else she can try? She uses [facility] in [place]. Angelic Wong PA-C 09/04/2024 10:27 AM Signed Sure, I can send some oral diclofenac to her pharmacy. She will need to discontinue the Celebrex. Jennifer Benoit MA 09/04/2024 10:59 AM Signed I called and left a detailed message on patients voicemail. Allergies As of Date: 09/03/2024 Noted Allergy Reaction CATS 2011 7 - Swelling Comments: rash Date Reviewed: 08/10/2024 Reviewed by: Jennifer Ratliff APRN.COMMERCIAL CRABBER - Fully Assessed Reason for Visit: Medication Problem [65] Primary Visit Diagnosis:Primary osteoarthritis of both knees [M17.0] Order(s):diclofenac, EC, (VOLTAREN) 75 mg EC tabletTake 1 tablet by mouth two times a day. for pain.Disp: 60 tabletRfl: 0 Prescriptions as of 09/04/2024 - diclofenac, EC, (VOLTAREN) 75 mg EC tablet Take 1 tablet by mouth two times a day. for pain. - montelukast (SINGULAIR) 10 mg tablet TAKE 1 TABLET BY MOUTH ONCE DAILY AT BEDTIME - dulaglutide (TRULICITY) 0.75 mg/0.5 mL pen injector Inject 0.75 mg subcutaneously one time a week for 28 days. - tiotropium bromide (SPIRIVA RESPIMAT) 1.25 mcg/actuation inhaler Inhale 2 puffs as instructed once daily. - venlafaxine ER (EFFEXOR XR) 37.5 mg 24 hr capsule Take 1 capsule by mouth once daily. - metFORMIN ER (GLUCOPHAGE XR) 500 mg 24 hr tablet Take 2 tablets by mouth daily with dinner. - rOPINIRole (REQUIP) 0.5 mg tablet Take 1 tablet by mouth daily at bedtime. Take with 1mg tab for total of 1.5mg. - rOPINIRole (REQUIP) 1 mg tablet Take 1 tablet by mouth daily at bedtime. - omeprazole (PRILOSEC) 20 mg capsule TAKE TWO CAPSULES BY MOUTH ONCE DAILY BEFORE BREAKFAST - cyclobenzaprine (FLEXERIL) 10 mg tablet Take 1 tablet by mouth three times a day as needed for muscle spasm. - buPROPion XL (WELLBUTRIN XL) 300 mg 24 hr tablet Take 1 tablet by mouth once daily. - cyanocobalamin (VITAMIN B-12) 1,000 mcg tab Take 1,000 mcg by mouth once daily. - cholecalciferol (VITAMIN D-3) 400 unit tab Take 400 Units by mouth once daily. - mometasone-formoterol (DULERA) 200-5 mcg/actuation inhaler Inhale 2 Puffs as instructed two times a day. - loratadine (CLARITIN) 10 mg tablet Take 1 tablet by mouth once daily as needed. FOR ALLERGY SYMPTOMS - albuterol HFA (PROVENTIL HFA, VENTOLIN HFA) 90 mcg/actuation inhaler INHALE 2 PUFFS BY MOUTH EVERY 6 HOURS NEEDED FOR SHORTNESS OF BREATH AND WHEEZING - Nebulizer Accessories kit Provide 1 kit. - albuterol (PROVENTIL) 2.5 mg /3 mL (0.083 %) nebulizer solution Use 3 mL via nebulizer every 4 hours as needed for wheezing/shortness of breath. Use over 5-15minutes. - promethazine (PHENERGAN) 25 mg tablet Take 1 tablet by mouth every 6 hours as needed. - ProAir RespiClick 90 mcg/actuation breath activated (albuterol sulfate) Inhale 2 Puffs as instructed every 6 hours as needed. Problem List As Of Date 09/03/2024 Noted Resolved Shortness of breath [R06.02] 01/13/2011 Pneumonia, organism unspecified [J18.9] 07/15/2006 01/13/2011 Acute respiratory failure [J96.00] 07/15/2006 01/13/2011 ACUTE URI NOS [J06.9] 08/07/2007 09/10/2008 Gastroesophageal reflux disease without esophag*09/10/2008 Allergic rhinitis [J30.9] 09/10/2008 Moderate persistent asthma without complication*12/11/2008 Environmental allergies [Z91.09] Obesity, Class III, BMI >= 40 (morbid obesity) *12/03/2016 Irritable mood [R45.4] 03/04/2018 Post menopausal syndrome [N95.1] 03/04/2018 Tonsil asymmetry [J35.8] 03/04/2018 Encounter for screening for diabetes mellitus [*03/04/2018 Well adult exam [Z00.00] 09/01/2018 Medication management [Z79.899] 09/01/2018 Arthritis of knee [M17.10] 10/30/2020 Restless leg syndrome [G25.81] 10/30/2020 COVID-19 virus infection [U07.1] 10/14/2021 Fatty liver [K76.0] 01/04/2022 Liver cyst [K76.89] 01/08/2022 Situational depression [F43.21] 09/28/2022 DRE (obstructive sleep apnea) [G47.33] 11/01/2023 Class 3 severe obesity with serious comorbidity*12/21/2023 Hyperinsulinemia [E16.1] 12/21/2023 Acute right-sided thoracic back pain [M54.6] 04/27/2024 Prescriptions ordered this encounter Disp Refills Start End DICLOFENAC SODIUM 75 MG TABLET,DELAY* 60 t* 0 09/04/2024 10/04/2024 Route: PO Sig: Take 1 tablet by mouth two times a day. for pain. Medications Discontinued During This Encounter Prescriptions - celecoxib (CELEBREX) 200 mg capsule (Discontinued) Take 1 capsule by mouth once daily. Encounter Status:Closed by JENNIFER BENOIT on 09/04/24 KEVIN Observed: 08/28/2024 12:00 AM Status: COMPLETED Source: [facility] Telephone (OBOrthogemWM) CINTHYA BONE ([id number]) 1970 F NFR Date Time Provider Department 08/28/24 JENNIFER RATLIFF OBALISAW During your visit today, we recorded the following information about you: Crescencio Thurman LPN 08/28/2024 12:06 PM Signed PA initiated through CoverMyMeds 08/28/2024 The prior authorization process is requiring more information. We submitted what the insurance company needs and we are waiting for a response. Medication Name, dosage and instructions: Trulicity 0.75 mg/0.5mL Date medication order obtained: 08/21/2024 Diagnosis Code: Class 3 severe obesity with serious comorbidity and body mass index (BMI) of 50.0 to 59.9 in adult, unspecified obesity type (HCC) [E66.813, Z68.43] - Primary DRE on CPAP [G47.33] Hyperinsulinemia [E16.1] CPT code (if applicable): n/a Medical reason details for medication: n/a Allergies As of Date: 08/28/2024 Noted Allergy Reaction CATS 2011 7 - Swelling Comments: rash Date Reviewed: 08/10/2024 Reviewed by: Jennifer Ratliff APRN.COMMERCIAL CRABBER - Fully Assessed Reason for Visit: Insurance Authorization [[id number]] Cmt: Trulicity Prescriptions as of 09/18/2024 - diclofenac, EC, (VOLTAREN) 75 mg EC tablet Take 1 tablet by mouth two times a day. for pain. - montelukast (SINGULAIR) 10 mg tablet TAKE 1 TABLET BY MOUTH ONCE DAILY AT BEDTIME - dulaglutide (TRULICITY) 0.75 mg/0.5 mL pen injector Inject 0.75 mg subcutaneously one time a week for 28 days. - tiotropium bromide (SPIRIVA RESPIMAT) 1.25 mcg/actuation inhaler Inhale 2 puffs as instructed once daily. - venlafaxine ER (EFFEXOR XR) 37.5 mg 24 hr capsule Take 1 capsule by mouth once daily. - metFORMIN ER (GLUCOPHAGE XR) 500 mg 24 hr tablet Take 2 tablets by mouth daily with dinner. - rOPINIRole (REQUIP) 0.5 mg tablet Take 1 tablet by mouth daily at bedtime. Take with 1mg tab for total of 1.5mg. - rOPINIRole (REQUIP) 1 mg tablet Take 1 tablet by mouth daily at bedtime. - omeprazole (PRILOSEC) 20 mg capsule TAKE TWO CAPSULES BY MOUTH ONCE DAILY BEFORE BREAKFAST - cyclobenzaprine (FLEXERIL) 10 mg tablet Take 1 tablet by mouth three times a day as needed for muscle spasm. - buPROPion XL (WELLBUTRIN XL) 300 mg 24 hr tablet Take 1 tablet by mouth once daily. - cyanocobalamin (VITAMIN B-12) 1,000 mcg tab Take 1,000 mcg by mouth once daily. - cholecalciferol (VITAMIN D-3) 400 unit tab Take 400 Units by mouth once daily. - mometasone-formoterol (DULERA) 200-5 mcg/actuation inhaler Inhale 2 Puffs as instructed two times a day. - loratadine (CLARITIN) 10 mg tablet Take 1 tablet by mouth once daily as needed. FOR ALLERGY SYMPTOMS - albuterol HFA (PROVENTIL HFA, VENTOLIN HFA) 90 mcg/actuation inhaler INHALE 2 PUFFS BY MOUTH EVERY 6 HOURS NEEDED FOR SHORTNESS OF BREATH AND WHEEZING - Nebulizer Accessories kit Provide 1 kit. - albuterol (PROVENTIL) 2.5 mg /3 mL (0.083 %) nebulizer solution Use 3 mL via nebulizer every 4 hours as needed for wheezing/shortness of breath. Use over 5-15minutes. - promethazine (PHENERGAN) 25 mg tablet Take 1 tablet by mouth every 6 hours as needed. - ProAir RespiClick 90 mcg/actuation breath activated (albuterol sulfate) Inhale 2 Puffs as instructed every 6 hours as needed. Problem List As Of Date 08/28/2024 Noted Resolved Shortness of breath [R06.02] 01/13/2011 Pneumonia, organism unspecified [J18.9] 07/15/2006 01/13/2011 Acute respiratory failure [J96.00] 07/15/2006 01/13/2011 ACUTE URI NOS [J06.9] 08/07/2007 09/10/2008 Gastroesophageal reflux disease without esophag*09/10/2008 Allergic rhinitis [J30.9] 09/10/2008 Moderate persistent asthma without complication*12/11/2008 Environmental allergies [Z91.09] Obesity, Class III, BMI >= 40 (morbid obesity) *12/03/2016 Irritable mood [R45.4] 03/04/2018 Post menopausal syndrome [N95.1] 03/04/2018 Tonsil asymmetry [J35.8] 03/04/2018 Encounter for screening for diabetes mellitus [*03/04/2018 Well adult exam [Z00.00] 09/01/2018 Medication management [Z79.899] 09/01/2018 Arthritis of knee [M17.10] 10/30/2020 Restless leg syndrome [G25.81] 10/30/2020 COVID-19 virus infection [U07.1] 10/14/2021 Fatty liver [K76.0] 01/04/2022 Liver cyst [K76.89] 01/08/2022 Situational depression [F43.21] 09/28/2022 DRE (obstructive sleep apnea) [G47.33] 11/01/2023 Class 3 severe obesity with serious comorbidity*12/21/2023 Hyperinsulinemia [E16.1] 12/21/2023 Acute right-sided thoracic back pain [M54.6] 04/27/2024 Encounter Status:Closed by CRESCENCIO THURMAN on 09/18/24 CNCO Observed: 08/21/2024 12:00 AM Status: COMPLETED Source: [facility] Letter TextLetter Text CNPN Observed: 08/21/2024 12:00 AM Status: COMPLETED Source: [facility] Telephone (OBGYWM) CINTHYA BONE ([id number]) 1970 F NFR Date Time Provider Department 08/21/24 JENNIFER RATLIFF During your visit today, we recorded the following information about you: Crescencio Thurman LPN 08/21/2024 7:46 AM Signed Please review and file pending orders. Patient with new insurance. Will route for scheduling once complete. Allergies As of Date: 08/21/2024 Noted Allergy Reaction CATS 2011 7 - Swelling Comments: rash Date Reviewed: 08/10/2024 Reviewed by: Jennifer Ratliff APRN.[employer]BER - Fully Assessed Reason for Visit: Orders [681] Primary Visit Diagnosis:Class 3 severe obesity with serious comorbidity and body mass index (BMI) of 50.0 to 59.9 in adult, unspecified obesity type (HCC) [E66.813, Z68.43] Other Visit Diagnoses:DRE on CPAP [G47.33] Hyperinsulinemia [E16.1] Order(s):[facility] [[id number]] Order #: [id number]: 1 FUTURE dulaglutide (TRULICITY) 0.75 mg/0.5 mL pen injectorInject 0.75 mg subcutaneously one time a week for 28 days.Disp: 2 mLRfl: 0 Prescriptions as of 09/18/2024 - diclofenac, EC, (VOLTAREN) 75 mg EC tablet Take 1 tablet by mouth two times a day. for pain. - montelukast (SINGULAIR) 10 mg tablet TAKE 1 TABLET BY MOUTH ONCE DAILY AT BEDTIME - dulaglutide (TRULICITY) 0.75 mg/0.5 mL pen injector Inject 0.75 mg subcutaneously one time a week for 28 days. - tiotropium bromide (SPIRIVA RESPIMAT) 1.25 mcg/actuation inhaler Inhale 2 puffs as instructed once daily. - venlafaxine ER (EFFEXOR XR) 37.5 mg 24 hr capsule Take 1 capsule by mouth once daily. - metFORMIN ER (GLUCOPHAGE XR) 500 mg 24 hr tablet Take 2 tablets by mouth daily with dinner. - rOPINIRole (REQUIP) 0.5 mg tablet Take 1 tablet by mouth daily at bedtime. Take with 1mg tab for total of 1.5mg. - rOPINIRole (REQUIP) 1 mg tablet Take 1 tablet by mouth daily at bedtime. - omeprazole (PRILOSEC) 20 mg capsule TAKE TWO CAPSULES BY MOUTH ONCE DAILY BEFORE BREAKFAST - cyclobenzaprine (FLEXERIL) 10 mg tablet Take 1 tablet by mouth three times a day as needed for muscle spasm. - buPROPion XL (WELLBUTRIN XL) 300 mg 24 hr tablet Take 1 tablet by mouth once daily. - cyanocobalamin (VITAMIN B-12) 1,000 mcg tab Take 1,000 mcg by mouth once daily. - cholecalciferol (VITAMIN D-3) 400 unit tab Take 400 Units by mouth once daily. - mometasone-formoterol (DULERA) 200-5 mcg/actuation inhaler Inhale 2 Puffs as instructed two times a day. - loratadine (CLARITIN) 10 mg tablet Take 1 tablet by mouth once daily as needed. FOR ALLERGY SYMPTOMS - albuterol HFA (PROVENTIL HFA, VENTOLIN HFA) 90 mcg/actuation inhaler INHALE 2 PUFFS BY MOUTH EVERY 6 HOURS NEEDED FOR SHORTNESS OF BREATH AND WHEEZING - Nebulizer Accessories kit Provide 1 kit. - albuterol (PROVENTIL) 2.5 mg /3 mL (0.083 %) nebulizer solution Use 3 mL via nebulizer every 4 hours as needed for wheezing/shortness of breath. Use over 5-15minutes. - promethazine (PHENERGAN) 25 mg tablet Take 1 tablet by mouth every 6 hours as needed. - ProAir RespiClick 90 mcg/actuation breath activated (albuterol sulfate) Inhale 2 Puffs as instructed every 6 hours as needed. Problem List As Of Date 08/21/2024 Noted Resolved Shortness of breath [R06.02] 01/13/2011 Pneumonia, organism unspecified [J18.9] 07/15/2006 01/13/2011 Acute respiratory failure [J96.00] 07/15/2006 01/13/2011 ACUTE URI NOS [J06.9] 08/07/2007 09/10/2008 Gastroesophageal reflux disease without esophag*09/10/2008 Allergic rhinitis [J30.9] 09/10/2008 Moderate persistent asthma without complication*12/11/2008 Environmental allergies [Z91.09] Obesity, Class III, BMI >= 40 (morbid obesity) *12/03/2016 Irritable mood [R45.4] 03/04/2018 Post menopausal syndrome [N95.1] 03/04/2018 Tonsil asymmetry [J35.8] 03/04/2018 Encounter for screening for diabetes mellitus [*03/04/2018 Well adult exam [Z00.00] 09/01/2018 Medication management [Z79.899] 09/01/2018 Arthritis of knee [M17.10] 10/30/2020 Restless leg syndrome [G25.81] 10/30/2020 COVID-19 virus infection [U07.1] 10/14/2021 Fatty liver [K76.0] 01/04/2022 Liver cyst [K76.89] 01/08/2022 Situational depression [F43.21] 09/28/2022 DRE (obstructive sleep apnea) [G47.33] 11/01/2023 Class 3 severe obesity with serious comorbidity*12/21/2023 Hyperinsulinemia [E16.1] 12/21/2023 Acute right-sided thoracic back pain [M54.6] 04/27/2024 Prescriptions ordered this encounter Disp Refills Start End DULAGLUTIDE 0.75 MG/0.5 ML SUBCUTANE* 2 mL 0 08/21/2024 09/18/2024 Route: SQ Sig: Inject 0.75 mg subcutaneously one time a week for 28 days. Medications Discontinued During This Encounter Prescriptions - dulaglutide (TRULICITY) 0.75 mg/0.5 mL pen injector (Discontinued) Inject 0.75 mg subcutaneously one time a week for 28 days. Encounter Status:Closed by CRESCENCIO THURMAN on 09/18/24 DAKOTAN Observed: 08/20/2024 12:00 AM Status: COMPLETED Source: [facility] Telephone (PULMWS) BONECINTHYA LOPEZ ([id number]) 1970 F NFR Date Time Provider Department 08/20/24 NENITA WOODS During your visit today, we recorded the following information about you: Deena Randle LPN 08/20/2024 1:13 PM Signed Patient calling in wondering if she is able to get a letter stating she has asthma and needs an air conditioner for breathing concerns that she can give to her crisis program for assistance. Deena Randle LPN Allergies As of Date: 08/20/2024 Noted Allergy Reaction CATS 2011 7 - Swelling Comments: rash Date Reviewed: 08/10/2024 Reviewed by: Jennifer Ratliff APRN.[employer]ERCIAL CR[employer]BER - Fully Assessed Prescriptions as of 08/28/2024 - montelukast (SINGULAIR) 10 mg tablet TAKE 1 TABLET BY MOUTH ONCE DAILY AT BEDTIME - dulaglutide (TRULICITY) 0.75 mg/0.5 mL pen injector Inject 0.75 mg subcutaneously one time a week for 28 days. - celecoxib (CELEBREX) 200 mg capsule Take 1 capsule by mouth once daily. - tiotropium bromide (SPIRIVA RESPIMAT) 1.25 mcg/actuation inhaler Inhale 2 puffs as instructed once daily. - venlafaxine ER (EFFEXOR XR) 37.5 mg 24 hr capsule Take 1 capsule by mouth once daily. - metFORMIN ER (GLUCOPHAGE XR) 500 mg 24 hr tablet Take 2 tablets by mouth daily with dinner. - rOPINIRole (REQUIP) 0.5 mg tablet Take 1 tablet by mouth daily at bedtime. Take with 1mg tab for total of 1.5mg. - rOPINIRole (REQUIP) 1 mg tablet Take 1 tablet by mouth daily at bedtime. - omeprazole (PRILOSEC) 20 mg capsule TAKE TWO CAPSULES BY MOUTH ONCE DAILY BEFORE BREAKFAST - cyclobenzaprine (FLEXERIL) 10 mg tablet Take 1 tablet by mouth three times a day as needed for muscle spasm. - buPROPion XL (WELLBUTRIN XL) 300 mg 24 hr tablet Take 1 tablet by mouth once daily. - cyanocobalamin (VITAMIN B-12) 1,000 mcg tab Take 1,000 mcg by mouth once daily. - cholecalciferol (VITAMIN D-3) 400 unit tab Take 400 Units by mouth once daily. - mometasone-formoterol (DULERA) 200-5 mcg/actuation inhaler Inhale 2 Puffs as instructed two times a day. - loratadine (CLARITIN) 10 mg tablet Take 1 tablet by mouth once daily as needed. FOR ALLERGY SYMPTOMS - albuterol HFA (PROVENTIL HFA, VENTOLIN HFA) 90 mcg/actuation inhaler INHALE 2 PUFFS BY MOUTH EVERY 6 HOURS NEEDED FOR SHORTNESS OF BREATH AND WHEEZING - Nebulizer Accessories kit Provide 1 kit. - albuterol (PROVENTIL) 2.5 mg /3 mL (0.083 %) nebulizer solution Use 3 mL via nebulizer every 4 hours as needed for wheezing/shortness of breath. Use over 5-15minutes. - promethazine (PHENERGAN) 25 mg tablet Take 1 tablet by mouth every 6 hours as needed. - ProAir RespiClick 90 mcg/actuation breath activated (albuterol sulfate) Inhale 2 Puffs as instructed every 6 hours as needed. Problem List As Of Date 08/20/2024 Noted Resolved Shortness of breath [R06.02] 01/13/2011 Pneumonia, organism unspecified [J18.9] 07/15/2006 01/13/2011 Acute respiratory failure [J96.00] 07/15/2006 01/13/2011 ACUTE URI NOS [J06.9] 08/07/2007 09/10/2008 Gastroesophageal reflux disease without esophag*09/10/2008 Allergic rhinitis [J30.9] 09/10/2008 Moderate persistent asthma without complication*12/11/2008 Environmental allergies [Z91.09] Obesity, Class III, BMI >= 40 (morbid obesity) *12/03/2016 Irritable mood [R45.4] 03/04/2018 Post menopausal syndrome [N95.1] 03/04/2018 Tonsil asymmetry [J35.8] 03/04/2018 Encounter for screening for diabetes mellitus [*03/04/2018 Well adult exam [Z00.00] 09/01/2018 Medication management [Z79.899] 09/01/2018 Arthritis of knee [M17.10] 10/30/2020 Restless leg syndrome [G25.81] 10/30/2020 COVID-19 virus infection [U07.1] 10/14/2021 Fatty liver [K76.0] 01/04/2022 Liver cyst [K76.89] 01/08/2022 Situational depression [F43.21] 09/28/2022 DRE (obstructive sleep apnea) [G47.33] 11/01/2023 Class 3 severe obesity with serious comorbidity*12/21/2023 Hyperinsulinemia [E16.1] 12/21/2023 Acute right-sided thoracic back pain [M54.6] 04/27/2024 Encounter Status:Closed by CLICK, NENITA Monae on 08/21/24 PROGRESS Observed: 08/10/2024 1:00 PM Status: COMPLETED Source: [facility] HNO ID: [id number] Author: JENNIFER RATLIFF APRN.COMMERCIAL CRABBER Service: ? Author Type: Nurse Practitioner Type: Progress Notes Filed: 08/10/2024 20:25 Note Text: Some documentation from previous visit of 06/06/2024 was copied and pasted, documentation has been reviewed and edited as necessary for today's visit. Patient Summary: Jocelyn is a 53 year old Female who presents for follow-up evaluation of obesity/weight management to treat and prevent related co-morbidities. In our previous visits we have discussed lifestyle intervention including a nutrition recommendations and physical activity optimization. Her last office visit was 2 months ago. Assessment/plan from last visit: - Bupropion 300 XL for NADIRA and depression per PCP, also helps with food cravings. - Metformin ER 500 mg - 1 gm at dinner - DC'd due to diarrhea - Trulicity approved by [place] but denied by [facility]. She will only have [place] Medicaid after August 17. - Sleep study done at [facility] - DRE CPAP recommended and started - Weaned off Cymbalta. Doing well on Effexor - Consult to BMI - considering if unsuccessful at weight loss - Semaglutide - Not covered by insurance Interval History PT specifies the following items as new or significant updates since the last appointment: - Reports severe hot flashes and night sweats, describing them as worse, worse. - Experiences episodes of intense sweating and hair getting soaked. - Going through divorce - seeing counselor. Weight loss since last vist: 0 lbs. Date: Weight: BMI: Medications: 08/10/2024 309 lb 54.05 Trulicity - will prescribe after 08/17/2024; 06/06/2024 309 lb 53.61 04/26/2024 311 lb 53.95 Trulicity prescribed - denied 12/21/2023 301 lb 52.22 denied 11/01/2023 300 lb 52.04 Metformin ER 500 mg 5% weight loss = 0 lbs, 10% weight loss = 0 lbs Anti-obesity medications: Benefit:slight increased fullness Adverse effects: none Weight promoting medications: Effexor Inhaled steroid Previous Diet (initial appointment): Awake - 0600 B - 08 coffee with vanilla FF 1 tsp creamer S - none L - 11-12 lunch meat sandwich on wheat with orange or grapes and lemonade or OJ S - none D - 4 pm protein, sometimes breaded and sometimes with gravy/potato or rice/salad or vegetable water or Sprite S - 6 pm fruit or veg in [place] or cookie or chips Fluids: coffee with vanilla FF 1 tsp creamer, lemonade, OJ, regular pop 1 per day, regular Gatorade, regular Body [place] and water Bedtime - 9 pm Quality of diet: 24hr recall suggests unhealthy diet. Characterization of diet:Structured, unhealthy snacking, evening snacking, and increased consumption of sugar sweetened beverages. 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:excessive hunger, lack of satiety, mindlessness , boredom, emotion, and stress Eating Disorder no Cravings: Candy, ice cream Dietary changes: Initial, protein every meal and snack B - 08 - 30 gm protein shake S - none L - 12-1 pm Salad/HB eggs/tomato/onion/low calorie [place] OR egg salad sandwich on LC wrap and shake or only protein shake S - none D - 4-5 pm chicken breast and corn and Salad and berries with a protein shake S - 7 pm apple/banana/berries Fluids - water, powerade zero - 8 oz over a day Current Barriers: food cravings and reduced physical activity Exercise: - Reports reduced physical activity due to knee pain and foot pain. - Walking more frequently, including around her granddaughter's games and around the block. Stress: - Reports stable stress levels despite current life circumstances. - Currently from her , who is recovering from back surgery. - Living separately but maintains a stable relationship. - Caring for her mother, who recently had a stroke and checked herself out of the hospital. - Attending counseling sessions. Sleep:stable - Recently started using a CPAP machine following a sleep study. - Reports getting 7-8 hours of sleep per night and feeling better rested. - Denies snoring since using the CPAP machine. - Waiting on a different hose for the CPAP machine. Estimated Creatinine Clearance: 123.4 mL/min (based on SCr of 0.75 mg/dL). PAST MEDICAL HISTORY Diagnosis Date Allergic rhinitis, cause unspecified 09/10/2008 Arthritis Arthritis of knee 10/30/2020 Asthma Benign neoplasm of left breast 2018 COVID-19 virus infection 10/14/2021 10/14/2021 Environmental allergies Never formally tested. Sneezes, itches around cats. Excessive or frequent menstruation Heavy periods Fatty liver 01/04/2022 Noted on US 12/2021 Gastroesophageal reflux disease without esophagitis 09/10/2008 Hemorrhage of gastrointestinal tract, unspecified 05/10/2014 Irregular menstrual cycle Irregular periods Liver cyst 01/08/2022 MRI: 12/2021 Mild persistent asthma without complication (HCC) 12/11/2008 Obesity, Class III, BMI >= 40 (morbid obesity) E66.01 12/03/2016 Pneumonia 2008 Required intubation Restless leg syndrome 10/30/2020 Shortness of breath 2007 Was on a ventolator with pneumonia Situational depression 09/28/2022 Tonsil asymmetry 03/04/2018 Lt at 2+ Rt normal. chronic Well adult exam 09/01/2018 Done 10/30/2020 Current Outpatient Medications Medication Sig Dispense Refill montelukast (SINGULAIR) 10 mg tablet TAKE 1 TABLET BY MOUTH ONCE DAILY AT BEDTIME 30 tablet 0 celecoxib (CELEBREX) 200 mg capsule Take 1 capsule by mouth once daily. 30 capsule 0 tiotropium bromide (SPIRIVA RESPIMAT) 1.25 mcg/actuation inhaler Inhale 2 puffs as instructed once daily. 4 g 11 venlafaxine ER (EFFEXOR XR) 37.5 mg 24 hr capsule Take 1 capsule by mouth once daily. 90 capsule 1 dulaglutide (TRULICITY) 0.75 mg/0.5 mL pen injector Inject 0.75 mg subcutaneously one time a week for 28 days. 2 mL 0 metFORMIN ER (GLUCOPHAGE XR) 500 mg 24 hr tablet Take 2 tablets by mouth daily with dinner. 180 tablet 1 fluticasone (FLONASE ALLERGY RELIEF) 50 mcg/actuation nasal spray Use 1 [place] in each nostril once daily. 11.1 mL 0 rOPINIRole (REQUIP) 0.5 mg tablet Take 1 tablet by mouth daily at bedtime. Take with 1mg tab for total of 1.5mg. 90 tablet 1 rOPINIRole (REQUIP) 1 mg tablet Take 1 tablet by mouth daily at bedtime. 90 tablet 1 omeprazole (PRILOSEC) 20 mg capsule TAKE TWO CAPSULES BY MOUTH ONCE DAILY BEFORE BREAKFAST 180 capsule 1 cyclobenzaprine (FLEXERIL) 10 mg tablet Take 1 tablet by mouth three times a day as needed for muscle spasm. 30 tablet 0 buPROPion XL (WELLBUTRIN XL) 300 mg 24 hr tablet Take 1 tablet by mouth once daily. 90 tablet 1 cyanocobalamin (VITAMIN B-12) 1,000 mcg tab Take 1,000 mcg by mouth once daily. cholecalciferol (VITAMIN D-3) 400 unit tab Take 400 Units by mouth once daily. mometasone-formoterol (DULERA) 200-5 mcg/actuation inhaler Inhale 2 Puffs as instructed two times a day. 18 g 11 loratadine (CLARITIN) 10 mg tablet Take 1 tablet by mouth once daily as needed. FOR ALLERGY SYMPTOMS 30 tablet 11 albuterol HFA (PROVENTIL HFA, VENTOLIN HFA) 90 mcg/actuation inhaler INHALE 2 PUFFS BY MOUTH EVERY 6 HOURS NEEDED FOR SHORTNESS OF BREATH AND WHEEZING 1 Each 5 Nebulizer Accessories kit Provide 1 kit. 1 Each 4 albuterol (PROVENTIL) 2.5 mg /3 mL (0.083 %) nebulizer solution Use 3 mL via nebulizer every 4 hours as needed for wheezing/shortness of breath. Use over 5-15minutes. 360 mL 3 fluticasone (FLONASE) 50 mcg/actuation nasal spray Use 1 [place] in each nostril once daily. 1 Each 5 promethazine (PHENERGAN) 25 mg tablet Take 1 tablet by mouth every 6 hours as needed. 12 tablet 0 ProAir RespiClick 90 mcg/actuation breath activated (albuterol sulfate) Inhale 2 Puffs as instructed every 6 hours as needed. 1 Each 5 No current facility-administered medications for this visit. ROS Constitutional: (+) weight gain, (+) night sweats Respiratory: (-) snoring Gastrointestinal: (+) abdominal bloating, (-) diarrhea, (-) heartburn Musculoskeletal: (+) knee pain, (+) foot pain Endocrine: (+) hot flashes Occupation: Unemployed and filing for disability - hearing in November 2024 Contraception: hysterectomy BP 130/81 Pulse 77 Wt (!) 140.2 kg (309 lb) LMP 12/01/2010 (Exact Date) SpO2 98% BMI 54.05 kg/m? PE GENERAL: Pleasant, well-nourished, no acute distress PULMONARY: normal inspiratory effort NEURO: alert and oriented x3 Results: recent labs reviewed with the patient. Glucose (mg/dL) Date Value 04/26/2024 84 10/30/2020 74 Potassium (mmol/L) Date Value 04/26/2024 4.0 10/30/2020 4.1 Sodium (mmol/L) Date Value 04/26/2024 140 10/30/2020 142 Chloride (mmol/L) Date Value 04/26/2024 103 10/30/2020 104 CO2 (mmol/L) Date Value 04/26/2024 27 10/30/2020 24 Creatinine (mg/dL) Date Value 04/26/2024 0.75 10/30/2020 0.80 BUN (mg/dL) Date Value 04/26/2024 15 10/30/2020 13 Anion Gap (mmol/L) Date Value 04/26/2024 10 10/30/2020 14 Calcium (mg/dL) Date Value 10/30/2020 9.7 Calcium, Total (mg/dL) Date Value 04/26/2024 9.6 Latest Ref Rng AND Units 04/26/2024 CMP Sodium 136 - 144 mmol/L 140 Potassium 3.7 - 5.1 mmol/L 4.0 Chloride 98 - 107 mmol/L 103 CO2 22 - 30 mmol/L 27 Glucose 74 - 99 mg/dL 84 BUN 7 - 21 mg/dL 15 Creatinine 0.58 - 0.96 mg/dL 0.75 EGFR >=60 mL/min/1.73m? 97 Calcium 8.5 - 10.2 mg/dL 9.6 Cholesterol, Total (mg/dL) Date Value 11/07/2023 181 03/09/2019 173 Total Cholesterol, Nonfasting (mg/dL) Date Value 10/30/2020 179 HDL Cholesterol (mg/dL) Date Value 11/07/2023 53 03/09/2019 66 HDL Cholesterol, Nonfasting (mg/dL) Date Value 10/30/2020 60 LDL Cholesterol, Calculated (mg/dL) Date Value 11/07/2023 97 03/09/2019 84 LDL Cholesterol Calculated, Nonfasting (mg/dL) Date Value 11/01/2022 89 10/30/2020 89 Triglyceride (mg/dL) Date Value 11/07/2023 155 03/09/2019 113 Triglycerides, Nonfasting (mg/dL) Date Value 10/30/2020 151 Latest Ref Rng AND Units 11/07/2023 CBC WBC 3.70 - 11.00 k/uL 6.23 RBC 3.90 - 5.20 m/uL 4.89 Hemoglobin 11.5 - 15.5 g/dL 12.9 Hematocrit 36.0 - 46.0 % 40.0 MCV 80.0 - 100.0 fL 81.8 MCH 26.0 - 34.0 pg 26.4 MCHC 30.5 - 36.0 g/dL 32.3 RDW-CV 11.5 - 15.0 % 14.0 Platelet Count 150 - 400 k/uL 357 MPV 9.0 - 12.7 fL 9.6 Vitamin D 25 Hydroxy Date Value Ref Range Status 11/07/2023 26.8 (L) 31.0 - 80.0 ng/mL Final Comment: Classification of 25 OH Vitamin D status: Deficiency/Insufficiency: < or = 30 ng/ml. Sufficiency/Optimal Levels: 31-80 ng/mL Toxicity: > 100 ng/mL. Test performed by chemiluminescent immunoassay. TSH Date Value 11/07/2023 2.290 mIU/L 11/01/2022 1.850 mIU/L 10/08/2019 1.670 uU/mL 11/10/2018 2.560 uU/mL Hemoglobin A1C (%) Date Value 11/07/2023 5.3 11/01/2022 5.0 09/30/2021 5.0 10/30/2020 5.0 03/04/2018 4.7 Insulin Date Value Ref Range Status 11/07/2023 33.4 (H) 3.0 - 25.0 mU/L Final Anti-Obesity Medications >Saxenda/Wegovy/Ozempic: Cost. Ins coverage? Family or personal History of MEN2 or Medullary thyroid cancer: no >Metformin: eGFR > 30. No contraindications or medication interactions. Assessment/Plan: Cinthya Bone is a 53 year old yo with Class III obesity who presented today for follow up for supervised weight loss to treat and prevent related co-morbidities. 1. DRE on CPAP (G47.33) - Sleep study completed; patient has been using CPAP machine and reports improved sleep quality. - Awaiting a different hose for the CPAP machine. - Continue CPAP therapy. 2. Gastroesophageal reflux disease without esophagitis (K21.9) - Well-controlled on omeprazole; continue current regimen. 3. Moderate persistent asthma without complication (HCC) (J45.40) - Well-controlled; continue current management. 4. Hyperinsulinemia (E16.1) - Previous metformin therapy discontinued due to severe diarrhea. - Discussed potential benefits of reintroducing metformin ER 500 mg once daily with dinner to enhance the effect of Trulicity. - Educated on potential GI side effects of Trulicity. - Will order Trulicity after 08/17 when [employer] insurance is active. 5. Fatty liver (K76.0) - Discussed importance of weight management and dietary modifications. - Provided detailed nutritional guidance emphasizing high protein intake and low carbohydrate consumption. 6. Arthritis of knee (M17.10) - Pain is tolerable; continue current activity level. - Encouraged regular low-impact exercise such as walking. 7. Menopausal and perimenopausal disorder (N95.9) - Experiencing severe hot flashes and night sweats. - Current medications Effexor and bupropion may provide some relief. - Provided education on non-pharmacological management strategies for hot flashes, including environmental modifications and identifying triggers. 8. Class 3 severe obesity with serious comorbidity and body mass index (BMI) of 50.0 to 59.9 in adult, unspecified obesity type (HCC) (E66.813) Weight stable - Discussed potential for bariatric surgery; [employer] insurance covers the procedure. - Will send consult order for bariatric medicine at the end of July or August 21. - METFORMIN ER 500 MG TABLET,EXTENDED RELEASE 24 HR. - - Discussed potential benefits of reintroducing metformin ER 500 mg once daily with dinner to enhance the effect of Trulicity. Can try taking 500 mg at dinner only.. Was told by pharmacist that if she had side effects from the metformin, her insurance may end up covering a GLP-1. - Will order Trulicity after 08/17 when [employer] insurance is active. - Educated on potential GI side effects of Trulicity. -- We discussed several strategies to track food intake and increase mindfulness around eating will decrease calorie intake. She was counseled on the following: - Reviewed whole food balanced protein, controlled carbohydrate nutrition plan. - Given protein, whole food and high protein nutrition lists. -On protein, carbs and whole versus processed foods -- Encouraged the patient to improve her physical activity as able. An overall goal of 150-200 minutes per week of exercise has been effective in weight loss and maintenance. -- Reviewed that monitoring weight daily and food intake can have a positive impact on overall weight loss and maintenance of weight loss. Activity tracking can be used to stay on target for exercise however should not be used to reward oneself She understands that there can be limitations of pharmacotherapy due to contraindications, side effects and cost. Patient was told to contact her insurance company to see what AOMs and supervised behavioral medical appointments are currently covered. Patient understands she will have more success when following a healthy lifestyle. We reviewed continued use of online tracking of daily weights, food journal and if desired physical activity. We reviewed that during management she is to report any concerning side effects of any pharmacotherapy she is placed on. She understands that she will need routine follow up in the office. Prior to any virtual visits in the future she will need to check her Blood pressure, weight, and pulse. Prescription instructions reviewed with patient as applicable. Potential red flag symptoms discussed with the patient. Reviewed appropriate action plan to take if red flag symptoms occur. Patient agreeable to treatment plan. - Follow-up appointment scheduled in 6 weeks Jennifer Ratliff CNP Advanced Education from the [employer] I spent a total of 60 minutes on the date of the service which included preparing to see the patient, [id number] patient care, completing clinical documentation, obtaining and/or reviewing separately obtained history, performing a medically appropriate examination, and counseling and educating the patient/family/caregiver. DERRICK Observed: 08/10/2024 1:00 PM Status: COMPLETED Source: [facility] Office Visit (OBGYWM) CINTHYA BONE ([id number]) 1970 F NFR Date Time Provider Department 08/10/24 1:00 PM JENNIFER RATLIFF OBGYWM During your visit today, we recorded the following information about you: Pulse Blood pressure Weight 77/minute 130/81 140.2 kg Jennifer Ratliff APRN.[employer] 08/10/2024 1:42 PM Addendum - Continue taking Wellbutrin (bupropion) 300 mg daily for mood and appetite control. - Keep taking omeprazole every morning for acid reflux. - If you?d like to retry metformin extended-release, take 500 mg once daily with dinner; stop if diarrhea returns. - We will send your Trulicity prescription after your [facility] [place] coverage ends so [facility] can process it. - At the same time, a consult order for a bariatric surgery evaluation will be sent since [facility] fully covers the process. - Keep using your CPAP device nightly; switch to the replacement hose when it arrives to maintain therapy for sleep apnea. - Manage hot flashes and menopause symptoms: - Avoid known triggers: hot weather, high humidity, alcohol, spicy foods, caffeine, and stress. - At night, crack open a window, place a fan at the foot of your bed and a small oscillating fan nearby--flip covers on and off without getting out of bed. - During a hot flash, keep your eyes closed, turn on the fan, and reach for cool air; when you feel chilled, turn the fan off and cover up. - Review the menopause information packet provided for additional tips. - Schedule a follow-up visit on Tuesday at 8:30 AM (about six weeks) to review Trulicity tolerance, side effects, and your weight-management progress. - Whole food balanced protein, controlled carbohydrate nutrition plan - 30 g of protein 3 times a day and up to 30 g of carbs at lunch and dinner only. 1st meal of the day- 30g protein with limit of 2 gm carbohydrates. Premier Protein or generic 30 gm protein 1 gm sugar 2. 2-3 eggs and some unbreaded meat and/or cheese. 3. 2-3 eggs and 1/2 of protein shake or one of the yogurts below: :ratio, KETO Friendly Dairy Snack 1 single svg - 15g protein AND 2g carb Two Good Lowfat Moz[place] Yogurt, Lower Sugar - 12g protein AND 2g carb No fruit, vegetables, bread, grain, other brands of yogurt, Smoothies, etc. Lunch and dinner - 30 gm protein is the goal with less than 30 gm carbohydrates All snacks and meals - all protein or more protein than carbs Protein - no carbs Egg 1 large - 6g Egg white 1 large 3.6g 3 oz is approximately the size of a deck of cards and equals 21 g protein so 4 oz is 28 gm protein Beef, Chicken, Gail, Pork, Gamble 1 oz 7g Fish, Tuna Fish 1 oz 7g (Starkist tuna packet 2.6 oz 17 gm protein) Seafood (Crabmeat, Shrimp, Lobster) 1 oz 6g Protein shakes (read labels) Premier Protein or generic [employer] Equate, [employer] High Performance- 30g protein AND 1g carb - meal replacement Premier Protein powder or generic- 30 g protein, 1g carb Fairlife 30 gram protein - 30g protein AND 3g carb BOOST Glucose Control Max 30g Protein Nutritional Drink - 30g protein AND 1 carb - meal replacement Slimfast High Protein - 20g protein AND 1g carb Ensure Max Protein Nutrition Shake 30g protein AND 2 carb OWYN plant based 100 % vegan no dairy, soy, wheat/gluten 32g protein 0 net carb (not a meal replacement) Premier Protein plant protein powder - 25g protein, 0 sugar/2g carb Vanilla and chocolate (not a meal replacement) Protein AND carbs Beef/Gail Jerky 1 oz dried 10-15g protein - check carb count, can be high if sugar added Slim Nikolay - 6 gm protein and 4 net carb Great Value original turkey sausage sticks - 7 gm protein and 2 gm carb Librado (at [facility]) Original smoked sausage sticks - 8 gm protein and 0 carb Imitation Crab Meat 1 oz - 2g protein AND 4g carb Milk, skim 2% or 1% 8 oz - 8g protein AND 12g carb Fairlife 2% milk 8 oz -13g protein AND 6g carb Mozambican yogurt Full Fat [place] Yogurt 1 cup - 20.4g protein AND 9.1g carb 2% Mozambican Yogurt 1 cup - 22.7g protein AND 9.1g carb 0% (fat-free) Moz[place]ican Yogurt - 1 cup 24g protein AND 9.3g carb Aldi Protein Mozambican yogurt single svg - 13/g15g protein AND 7g carb Chobani Zero Sugar single svg: - 12g protein AND 5g carb Dannon Mozambican Light + Fit 1 single svg - 12g protein AND 9g carb Oikos Pro single svg - 20g protein AND 8g carb Oikos Triple Zero Moz[place] Nonfat Yogurt 1 single svg - 15g protein AND 7g carb :ratio, KETO Friendly Dairy Snack 1 single svg - 15g protein AND 2g carb :ratio Protein 1 single svg - 25g protein AND 8g carb Two Good Lowfat Moz[place] Yogurt, [place], Lower Sugar - 12g protein AND 2g carb Yoplait Protein 1 single svg 15g protein AND 5g carb Dairy Free - [place] Evarts unsweetened Mozambican almond/soy 15g protein AND 3g carb Dairy Free - True Goodness by [facility] coconut-based yogurt alternative 1 g protein 1 g net carb 180 uma Drinkable yogurts: Chobani drinkable 15g, 20g and 30g protein AND 18 carb (too many carbs for breakfast) Chobani Zero Sugar 10g protein 6g carbs 50 calories Oikos Pro drinkable yogurt 1 single svg - 23g protein AND 8g carb :ratio Protein 26g protein 9g carb Cheese each oz Brie 5.9g protein AND 0.1g carb Cheddar 7g protein AND 0.4g carb Addison 6.7g protein AND 0.7g carb Cream Cheese 1.7g protein AND 1.2g carb [place] whipped [place]ican cream cheese (WM) 2 T 3g protein 2g carb Feta 4g protein AND 1.2g carb Mozzarella 6.3g protein AND 0.6g carb Parmesan 10g protein AND 0.9g carb Eritrean 7.6g protein AND 1.5g carb Cottage Cheese 1/2 c Breakstone 2% 13g protein 7g carb Lorrie 2% 13g protein 5 g carb Good Culture 2% 14g protein 3g carb Lactaid 13g protein 5g carb Delgado?s Low Fat 12g protein AND 4g carb Legumes Lentils ? cup 9g protein AND 20g carb [place] beans ? cup 7g protein AND 20g carb Kidney, Black, [place], Cannellini beans ? cup 8g protein AND 20g carb Chickpeas 1/2 c 6g protein AND 15g carb Soybeans 1/2 c 14g complete protein AND 8.5g carb [place] milk, unsweetened 8 oz 1g protein AND 2g carb Soy milk 8 oz 3.5g protein AND 1.6g carb Tofu 1/2 cup 10g protein AND 2.3g carb Peanut butter, natural 2 Tbsp 7-8g protein AND 4g net carbs, 190 calories PB2 powder 2 Tbsp 6g protein AND 5g carb Nuts and Seeds per oz Almonds - 5.9g protein AND 6.1g carb [place] Nuts - 4.0g protein AND 3.4g carb Cashews - 5.1g protein AND 9.2g carb Hazelnuts - 4.2g protein AND 4.7g carb Hemp seeds/hearts 3 T/30 gms - 9.5 gm complete protein and 2.5 gm carb Peanuts - 7g protein AND 4.6g carb Pecans - 2.6g protein AND 3.9g carb Pistachios - 5.8g protein AND 7.8g carb Pumpkin Seeds - 6.9g protein AND 5g carb [place] Seeds - 5.8g protein AND 5.6g carb Walnuts - 4.3g protein AND 3.8g carb Edamame Beans (soybean) snack 1 pack 11 gm complete protein 2 carb 5 (FIVE) gram carb vegetable options 1 cup raw OR ? cup cooked: Asparagus [place]on sprouts Beets Broccoli Brussel sprouts Cabbage Carrots Cauliflower Celery [place] Eggplant Green beans Lettuce Peppers Snap peas Spaghetti squash Spinach Tomato Turnips Zucchini 15 gram carb vegetable options ? cup cooked corn or hominy ? corn on the cob, large (5 oz) ? cup cooked green peas 4.3 gm complete protein ? cup cooked cotres beans 1 small potato or sweet potato ? cup cooked potato, plain ? cup cooked sweet potato, plain 1 cup winter squash (pumpkin, acorn, butternut) 1 cup marinara or pasta sauce - check label ? cup tomato juice ? cup tomato puree Beans, Seeds, Nuts ? cup cooked beans (kidney, bryant, red, green, etc.) ? cup cooked lentils ? cup baked beans 4 tablespoons nut butter <15 gram carb fruit options Berries have the lowest sugar content 1/2 medium apple - 12.5 carbs 1/2 medium avocado - 6.5 gm carbs 1/2 medium banana - 15 carbs 1/2 cup blueberries - 11 carbs - may actually help you lose weight 1/2 cup fresh cherries -11 carbs 1 medium Incolette -9 carbs 1/2 cup fresh cranberries - 6.5 carbs 1/2 c grapes - 15 carbs 1/2 medium grapefruit - 10.5 carbs 1/2 cup diced honeydew melon - 8 carbs 1 medium kiwi without skin - 11 carbs 1/2 cup sliced lynda -14 carbs 1 medium nectarine - 15 carbs 1 medium orange -15.5 carbs 1 medium peach -14.5 carbs 1/2 cup fresh pineapple -11 carbs 1 medium plum -7.5 carbs 1 prune - 6 carbs 1/4 c raisins - 31.25 carbs 1/2 cup raspberries -7.5 carbs 1/2 c strawberries - 12.7 carbs 1 medium tangerine -12 carbs 1/2 cup diced watermelon - 6 carbs Grains Brown rice 1/2 c 5.5g protein 24 carb White long-grain rice 1/2 c 2g protein 22.5 carb Quinoa 1/2 c 4 gm complete protein 25 carb Oatmeal, old fashioned 1/2 c 5g protein 27g carb High Protein Snack Ideas 1. Jerky 2. [place] mix without dried fruit 3. Gail roll-ups 4. Moz[place] yogurt 5. Veggies and yogurt dip 6. Tuna 7. Hard-boiled eggs 8. Peanut butter with celery 9. Cheese slices/ Cheese Stick 10. Handful of almonds, peanuts or walnuts 11. Cottage Cheese 12. Beef sticks 13. Protein bars 14. Canned [place] 15. Pumpkin seeds 16. Nut butter 17. Protein shake or protein bar 18. Avocado and chicken salad 19. Egg muffins 20. Leftover protein or lunch meat 21. 1/2 c blended cottage cheese or Mozambican yogurt with dry ranch/Mrs. Dash/herb seasoning mix to make protein dip- add raw veg 22. 1/2 c blended cottage cheese with 1 Tbsp sugar-free dry cheesecake pudding mix 12g protein 10 carb 23. Pudding - 1 30 gm protein shake with 1/2 pkg sugar-free pudding 4 svgs - 7.8 gm protein, 5 carb each svg 24. SF Sunkist or Root Beer with 1-2 Tablespoons heavy whipping cream 25. Mini frozen dessert bites - layer protein yogurt, skinny syrup and crushed nuts and freeze 26. Edamame Beans (soybean) snack 1 pack (O Beans) 11 gm complete protein 2 carb Why Is Protein So Important for Weight loss? consuming more protein not only reduces body weight but enhances body composition by decreasing fat mass while preserving fat-free mass During weight loss phase protein consumption (with normal kidney function) should be 1-1.6g protein per Kilogram of body weight (1kg=2.2lbs) On average Women need to Aim for a minimum 90g protein per day Consuming higher protein can also prevent weight regain after weight loss Protein consumption increases hormones responsible for satiety (feeling full)- these include Gut hormones like Glucagon-like peptide-1 (GLP-1), Cholecystokinin (CCK), Peptide Tyrosine-Tyrosine (PYY) and decreasing the Gut hormone responsible for causing hunger Ghrelin Protein has an increased thermogenesis effect of food- which means it take more calories to break down protein when consumed compared to carbohydrates or fats Protein also prevents a losing lean mass during weight loss (lose more fat and preserve fat free mass) which helps to increase resting energy expenditure (resting metabolic rate) Every pound of muscle baker ~ 6 kcal per pound/day vs fat baker ~ 2kcal per pound/day Carbohydrates - Why do You Crave Them? Eating too many refined carbohyrdates (sugar beverages, pastries, bread, pizza) which raises your blood glucose levels and therefore releasing insulin which in turn causes increase in hunger Carbohydrates suppress Ghrelin quickly but does not maintain the suppression for very long therefore hunger returns more quickly Consuming carbohydrates leads to a release of Dopamine ?feel good hormone? in our brain So how do you Curb these cravings? Eating Whole Foods with more fiber - High fiber carbs are absorbed and digested slowly so it does not impact blood sugar levels as much and will help in making you feel hanson for longer; fiber also is healthy for your gut bacteria and can help with constipation. Remember- carbohydrates are not the enemy but know what a proper serving size is, choose nutritious carbohydrates and space them out between meals. Always- eat your protein first followed by your non starchy vegetables followed by your carbohydrates- it will help your body with your glucose and insulin regulation Processed Foods vs Whole Foods- Impact on Weight: People who eat Ultra Processed food tend to consume about 500 calories more per day Ultra Processed foods are considered ?Calorie Dense? so when a person feels full they have typically already over eaten and consumed more calories Whole Foods (unprocessed foods) tend to be more more filling and more Nutrient Dense Unprocessed foods can be more expensive and not realistic for everyone however when you have the choice to consume unprocessed vs Ultra processed foods always pick unprocessed. Why can't people stop eating Ultra Processed foods? They are economical and optimized for taste by [employer] - they are designed to make you want to keep eating them- they feed common cravings and bypass the mechanisms that tell your brain you are full Benefits of eating Whole Foods and cutting out Ultra Processed Foods Increased concentration and focus (decreased brain fog), improved mood, better sleep, Decrease in fatigue, improvement in gut health, decreased inflammation, Likely WEIGHT LOSS DULAGLUTIDE (Trulicity) - The medication comes in a once weekly, single-dose pen. - The most common adverse reactions reported in >=5% of Trulicity-treated patients in trials were nausea, diarrhea, vomiting, abdominal pain, decreased appetite, dyspepsia, and fatigue.The side effects are usually transient in nature. Please reach out for assistance in managing these symptoms if they persist and are bothersome. Side effects typically occur 1-3 days after the injection, when starting the medication, and with dose increases. With this in mind consider timing the injection like on a Tuesday night, so if you have side effects they will occur on the weekend versus while you are at work. -- We should have further discussions about taking this medication if you have a history of a pancreatitis, a disease called MEN2, or you or a family member has had medullary thyroid cancer. -- please inform me immediately if you are or plan to become . -- Although rare, there is an increased risk for inflammation of the pancreas (pancreatitis), gallbladder problems (including gallstones), low blood sugar (typically when combined with a medication called a sulfonurea), acute kidney injury (bwith nausea/vomiting and resulting dehydration), diabetic retinopathy (damage to the eye's retina), increased heart rate, and suicidal behavior or thinking. -- Please reach out if in-person pen training is needed. -- Keep medication refrigerated. It is good for 2 weeks out of the refrigerator as long as it had not been in high temperatures or direct sunlight. Instructions for Use Trulicity Patient Education How to use the pen: What is Trulicity AND Easy To Use Pen Trulicity (dulaglutide) Full medication guide: Trulicity What Is Trulicity? Trulicity is a brand-name prescription drug that belongs to the drug class glucagon-like peptide-1 (GLP-1) agonists. Trulicity is available as a liquid solution self-injectable medication. It is a pre-filled, disposable, single-use injection pen. Can Trulicity Be Used for Weight Loss? While Trulicity is not a weight loss drug, Similar drugs in the same class of medication called GLP1's have recently been approved for weight loss by the FDA. These drugs are named Wegovy and Saxenda. The medication will be delivered as a once-weekly shot, in combination with diet and exercise. How Does Trulicity for Weight Loss Work? Trulicity is in a drug class called GLP-1 agonists that are used to control blood sugar, and can be taken to assist in weight loss. This drug works by - Slowing down how fast your stomach empties food - Blocking hormones that cause the liver to release sugar - Together, these combined actions cause the feeling of hunger to decrease, which leads to eating less, and finally, weight loss. How Long Does It Take for Trulicity to Work for Weight Loss? Results vary from person to person with Ozempic. Some people may have a quick initial weight drop; for others, it may take more time. Trulicity has been shown to help people lose weight in a safe, long-term, and healthy way. A [facility] doctor will help you with dosages of Trulicity for weight loss and might recommend slowly increasing dosage over time to maximize weight loss. The speed at which you lose weight is largely influenced by the amount of lifestyle changes you are able to make: there is no magic weight loss drug on the market. It?s important to remember that weight loss takes time, and you?ll have the best results if you use Trulicity in combination with exercise and a healthy diet. Trulicity for Weight Loss Dulaglutide: Patient drug information Access [employer] Online for additional drug information, tools, and databases. Copyright 0788-2634 [employer]. All rights reserved. (For additional information see Dulaglutide: Drug information) You must carefully read the Consumer Information Use and Disclaimer below in order to understand and correctly use this information. Brand Names: [place] Trulicity Brand Names: [place] Trulicity Warning Drugs like this one have been shown to cause thyroid cancer in some animals. It is not known if this drug may cause thyroid cancer in humans. Call your doctor right away if you have a neck mass, trouble breathing, trouble swallowing, or hoarseness that will not go away. Do not use this drug if you have a health problem called Multiple Endocrine Neoplasia syndrome type 2 (MEN 2), or if you or a family member have had thyroid cancer. What is this drug used for? It is used to lower blood sugar in patients with high blood sugar (diabetes). It is used to lower the chance of heart attack, stroke, and in some people. What do I need to tell my doctor BEFORE I take this drug? If you are allergic to this drug; any part of this drug; or any other drugs, foods, or substances. Tell your doctor about the allergy and what signs you had. If you have any of these health problems: Type 1 diabetes or stomach or bowel problems. If you have ever had pancreatitis. If the patient is a child. Do not give this drug to a child. This is not a list of all drugs or health problems that interact with this drug. Tell your doctor and pharmacist about all of your drugs (prescription or OTC, natural products, vitamins) and health problems. You must check to make sure that it is safe for you to take this drug with all of your drugs and health problems. Do not start, stop, or change the dose of any drug without checking with your doctor. What are some things I need to know or do while I take this drug? Tell all of your health care providers that you take this drug. This includes your doctors, nurses, pharmacists, and dentists. Follow the diet and workout plan that your doctor told you about. Wear disease medical alert ID (identification). Check your blood sugar as you have been told by your doctor. Have blood work checked as you have been told by the doctor. Talk with the doctor. Do not drive if your blood sugar has been low. There is a greater chance of you having a crash. It may be harder to control blood sugar during times of stress such as fever, infection, injury, or surgery. A change in physical activity, exercise, or diet may also affect blood sugar. Kidney problems have happened with drugs like this one. Sometimes, kidney problems have needed to be treated in the hospital. Dialysis has also been needed. Talk with your doctor. Tell your doctor if you have upset stomach, throwing up, diarrhea, or too much sweating. Losing too much fluid may raise your chance of kidney problems. If you are dehydrated, talk with your doctor. This drug may prevent other drugs taken by mouth from getting into the body. If you take other drugs by mouth, you may need to take them at some other time than this drug. Talk with your doctor. Do not share pen or cartridge devices with another person even if the needle has been changed. Sharing these devices may pass infections from one person to another. This includes infections you may not know you have. Tell your doctor if you are , plan on getting , or are breast-feeding. You will need to talk about the benefits and risks to you and the baby. What are some side effects that I need to call my doctor about right away? WARNING/CAUTION: Even though it may be rare, some people may have very bad and sometimes deadly side effects when taking a drug. Tell your doctor or get medical help right away if you have any of the following signs or symptoms that may be related to a very bad side effect: Signs of an allergic reaction, like rash; hives; itching; red, swollen, blistered, or peeling skin with or without fever; wheezing; tightness in the chest or throat; trouble breathing, swallowing, or talking; unusual hoarseness; or swelling of the mouth, face, lips, tongue, or throat. Signs of a pancreas problem (pancreatitis) like very bad stomach pain, very bad back pain, or very bad upset stomach or throwing up. Signs of kidney problems like unable to pass urine, change in how much urine is passed, blood in the urine, or a big weight gain. Change in eyesight. Low blood sugar can happen. The chance may be raised when this drug is used with other drugs for diabetes. Signs may be dizziness, headache, feeling sleepy or weak, shaking, fast heartbeat, confusion, hunger, or sweating. Call your doctor right away if you have any of these signs. Follow what you have been told to do for low blood sugar. This may include taking glucose tablets, liquid glucose, or some fruit juices. What are some other side effects of this drug? All drugs may cause side effects. However, many people have no side effects or only have minor side effects. Call your doctor or get medical help if any of these side effects or any other side effects bother you or do not go away: Not hungry. Feeling tired or weak. It is common to have diarrhea, upset stomach, throwing up, or stomach pain with this drug. Call your doctor if any of these side effects get very bad, bother you, or do not go away. These are not all of the side effects that may occur. If you have questions about side effects, call your doctor. Call your doctor for medical advice about side effects. You may report side effects to your national health agency. How is this drug best taken? Use this drug as ordered by your doctor. Read all information given to you. Follow all instructions closely. It is given as a shot into the fatty part of the skin on the top of the thigh, belly area, or upper arm. If you will be giving yourself the shot, your doctor or nurse will teach you how to give the shot. Be sure you know how to use this drug. Read the instructions for use that come with this drug. If there are no instructions for use or you have any questions about how to use this drug, talk with the doctor or pharmacist. Take with or without food. Drink lots of noncaffeine liquids unless told to drink less liquid by your doctor. Take the same day each week. Do not use if the solution is cloudy, leaking, or has particles. Do not use if solution changes color. Wash your hands before and after use. Move site where you give the shot each time. If you are also using insulin, you may inject this drug and the insulin in the same area of the body but not right next to each other. Do not mix this drug in the same syringe with insulin. Keep taking this drug as you have been told by your doctor or other health care provider, even if you feel well. Throw away needles in a needle/sharp disposal box. Do not reuse needles or other items. When the box is full, follow all local rules for getting rid of it. Talk with a doctor or pharmacist if you have any questions. What do I do if I miss a dose? Take a missed dose as soon as you think about it. If it is less than 3 days (72 hours) until your next dose, skip the missed dose. Take your next dose on your normal day. Do not take 2 doses at the same time or extra doses. How do I store and/or throw out this drug? Store in a refrigerator. Do not freeze. Do not use if it has been frozen. If needed, you may store at room temperature for up to 14 days. Write down the date you take this drug out of the refrigerator. If stored at room temperature and not used within 14 days, throw this drug away. Store in the original container to protect from light. Protect from heat. Keep all drugs in a safe place. Keep all drugs out of the reach of children and pets. Throw away unused or drugs. Do not flush down a toilet or pour down a drain unless you are told to do so. Check with your pharmacist if you have questions about the best way to throw out drugs. There may be drug take-back programs in your area. General drug facts If your symptoms or health problems do not get better or if they become worse, call your doctor. Do not share your drugs with others and do not take anyone else's drugs. Some drugs may have another patient information leaflet. If you have any questions about this drug, please talk with your doctor, nurse, pharmacist, or other health care provider. If you think there has been an overdose, call your poison control center or get medical care right away. Be ready to tell or show what was taken, how much, and when it happened. Last Reviewed [id number] Consumer Information Use and Disclaimer This generalized information is a limited summary of diagnosis, treatment, and/or medication information. It is not meant to be comprehensive and should be used as a tool to help the user understand and/or assess potential diagnostic and treatment options. It does NOT include all information about conditions, treatments, medications, side effects, or risks that may apply to a specific patient. It is not intended to be medical advice or a substitute for the medical advice, diagnosis, or treatment of a health care provider based on the health care provider's examination and assessment of a patient's specific and unique circumstances. Patients must speak with a health care provider for complete information about their health, medical questions, and treatment options, including any risks or benefits regarding use of medications. This information does not endorse any treatments or medications as safe, effective, or approved for treating a specific patient. [employer]. and its affiliates disclaim any warranty or liability relating to this information or the use thereof. The use of this information is governed by the Terms of Use, available at https://www.Trunk Show.Enduring [employer]/en/solutions/lexicomp/about/pito Menopause Symptoms Not all women experiences menopause in the same way. For some, menopause can bring on an array of uncomfortable symptoms. Others may experience few if any discomforts. This information has been prepared to help you manage the most common changes associated with the midlife transition. RELIEVING HOT FLASHES * Identify and avoid your hot flash triggers. Common triggers may include stress, caffeine, alcohol, spicy foods, tight clothing, heat and cigarette smoke. * Keep the bedroom cool. Use fans during the day. Wear light layers of clothes with natural fibers. * Try deep, slow abdominal paced breathing (6 to 8 breaths per minute). Practice deep breathing for 15 minutes in the morning, 15 minutes in the evening and at the onset of hot flashes. * Exercise daily. Walking, swimming, dancing and bicycling with helmet are good choices along with yoga. * Add soy protein in the form of food (40-60 mg) to your diet daily in place of animal protein. Promensil and isoflavone tablets have NOT been shown to significantly help menopausal symptoms * Black cohosh (in the form of Remifemin) can be used for hot flashes and has been approved by [place] [employer] [place] for only 6 months of use, however has NOT been well studied in the [place] for ferry terminal supervisor effects and THERE HAVE BEEN REPORTS OF LIVER TOXICITY WITH BLACK COHOSH USE. (Avoid kava kava, valerian root and beware that most herbal products are NOT regulated in the [place] and some have been associated with liver toxicity) NOTE: HORMONE THERAPY (HT) is the MOST EFFECTIVE treatment and the only FDA approved treatment for menopausal symptoms. Any form of hormones, including 'bioidentical' hormones have risks as well as benefits. * Antidepressants like Effexor (venlaflaxine) a NSRI or Pristiq (desvenlafaxine) another agent, Neurontin (gabapentin) may help block hot flashes and all have risks and benefits like any prescription or off the shelf medicine. * Use of Bellergal is discouraged as it contains an addictive barbiturate. RELIEVING INSOMNIA * Keep the bedroom cool to prevent night sweats. Special chill pillows that are cool are available. * Avoid using sleeping pills. * Exercise daily but not right before bedtime. * Avoid caffeine and alcohol at night. * Take a warm shower at bedtime. COPING WITH MOOD SWINGS, FEARS AND DEPRESSION * Find a self-calming skill to practice, such as yoga, meditation or slow deep breathing. * Avoid tranquilizers, if possible, however prescription anti-depressants can be very effective. * Engage in a creative outlet that fosters a sense of achievement. * Stay connected with your family and community; nurture your friendships. RELIEVING PAINFUL INTERCOURSE * Try using a vaginal water-based moisturizing lotion 3 times a week (like Replens or SILK-E) or lubricant during intercourse like KY jelly or Astroglide. *Local estrogen treatments for the vagina/bladder are available as a cream, tablet or vaginal ring. HELPFUL WEB SITES www.menopause.org www.[facility].org/[facility]omenshealth Non-Hormonal Ways to [place] with Hot Flashes and Menopause Hormone therapy is the most effective therapy for hot flashes. It is also the only FDA approved method to treat hot flashes. However, other non-hormonal options are available for women who are suffering from symptoms, but are not yet ready to consider hormone therapy. Some women are not appropriate candidates for hormone therapy, such as those have been recently treated for breast cancer, ovarian cancer, or endometrial/uterine cancer. It is important to remember that when used appropriately, hormone therapy can be a safe and effective option for many women. Here we will review non-hormonal treatment options for women. Knowing the triggers of hot flashes Hot flashes may be precipitated by hot weather, smoking, caffeine, spicy foods, alcohol, tight clothing, heat and stress. Identify and avoid your hot flash triggers. Some women notice hot flashes when they eat a lot of sugar. Exercising in warm temperatures might make hot flashes worse. Diet Avoiding caffeine, spicy foods, and alcohol can help lessen both the number and severity of hot flashes. Many women try to incorporate more plant estrogens into their diet. Plant estrogens, such as isoflavones, are thought to have weak estrogen-like effects that may reduce hot flashes. They may work in the body like a weak form of estrogen. Examples of plant estrogens include: soybeans, chickpeas, lentils, flaxseed, grains, beans, fruits, red clover and vegetables. In general, soybeans, chickpeas, and lentils are considered to have the most powerful plant estrogens, though their effect is much less than that of human estrogen. Try to choose natural foods rather than supplements. Also remember that only crushed or ground forms of flaxseed are likely to help (as compared to the whole seed or seed oil forms). What foods have high amounts of isoflavones Food Isoflavone Amount (Mg) In Food (100g) Soymilk 9.65 Soybeans, green, raw 151.17 Soy flour (textured) 148.61 148.61 Soybeans, dry roasted 128.35 Instant beverage soy, powder, not reconstituted 109.51 Miso soup mix, dry 60.39 Soybean chips 54.16 Tempeh, cooked 53.00 Soybean curd cheese 28.20 Tofu, silken 27.91 Tofu, yogurt 16.30 Source: [facility] -- [facility] Database on the Isoflavone Content of Foods, 1998 Lifestyle changes Reducing the temperature in a room, dressing in layers, and the use of a fan while asleep can be effective ways to help deal with troublesome hot flashes. Women who are overweight tend to have more bothersome hot flashes, therefore weight loss can be helpful. Quitting smoking has a dual importance during menopause. First, smoking contributes to the increased cardiovascular risks of being postmenopausal. Second, smokers tend to experience more hot flashes. Women who lead a sedentary life seem to suffer more from hot flashes; however, it is best to exercise in a cooler environment. Try deep, slow abdominal breathing (6 to 8 breaths per minute). Practice deep breathing for 15 minutes in the morning, 15 minutes in the evening and at the onset of hot flashes. For some women, wearing socks to bed is helpful as it can help to cool core body temperature. Relieving insomnia Keep the bedroom cool to prevent night sweats. Avoid using sleeping pills. Exercise daily. Avoid caffeine and alcohol at night. Take a warm bath or shower at bedtime. Try milk products at bedtime or during the night (but avoid products that contain caffeine). Coping with mood swings, fears, and depression Find a self-calming skill to practice, such as yoga, meditation or slow, deep breathing. Avoid tranquilizers, if possible. Engage in a creative outlet that fosters a sense of achievement. Stay connected with your family and community; nurture your friendships. Relieving painful intercourse Try using a vaginal water-based moisturizing lotion or lubricant during intercourse. These are sold without a prescription near the condoms in most stores. Common names include-Astroglide? and KY liquid?. Avoid Vaseline?, as it may lead to yeast infections. Prescription and nonprescription remedies A number of non-hormonal remedies are available for the treatment of hot flashes. Some of these remedies (e.g., black cohosh and soy products) are available [id number] but are not FDA-approved. Some prescription medications are used ?off label? to help reduce hot flashes. Using a product off label means that it is not FDA approved for the treatment of hot flashes, but is often used because it can be safe and effective for hot flash treatment.(considered the more effective non-hormonal treatments): Drug Side Effect Effectiveness venlafaxine (Effexor?) Nausea, change in bowel habits, headache (temporary side effects for most). Elevated blood pressure (at high doses) Effectiveness has been proven in several well-designed studies. One of the safer medications for women taking tamoxifen (no drug interaction). desvenlafaxine (Pristiq?) Similar to venlafaxine. Nausea, change in bowel habits, headache (temporary side effects for most). Elevated blood pressure (at high doses) Improvement in hot flashes compared to placebo has been shown. Newer med compared to venlafaxine, so a smaller number of studies are available. fluoxetine (Prozac?) Nausea, change in bowel habits, decreased libido, insomnia. Should be avoided in women taking tamoxifen. Improvement in hot flashes has been shown in well-designed studies. paroxetine (Paxil?) Nausea, change in bowel habits, decreased libido, dry mouth, weight gain (not common) Should be avoided in women taking tamoxifen. eTends to be more effective for sleep in women who are also suffering with insomnia. Improvement in hot flashes has been shown in well-designed studies. scitalopram (Lexapro?) Nausea, change in bowel habits, decreased libido, abnormal EKG (not common) Improvement in hot flashes has been shown in well-designed studies. Gabapentin (Neurontin?) Fatigue, dizziness, nausea, disorientation, swelling, weight gain Tends to be more effective for sleep in women who are also suffering with insomnia. Clonidine (Catapres?) Dry mouth, drowsiness, fatigue, constipation, lowers blood pressure Relieved hot flashes in some, but not all studies.Less commonly used than some of the other options. Non-prescription, herbal, [id number]-bnuxbpx therapies: Drug Side Effects Effectiveness Evening [place] Oil Nausea, diarrhea, headache. Only one well-designed study showing not effective. Black cohosh Mild stomach upset. Safe up to 6 months only due to possible estrogen-like effects. Liver toxicity has been reported. Some small, short-term studies have suggested benefits, however most studies do not suggest that it works. Soy (plant estrogen) Also referred to as phytoestrogens. Appears safe if consumed in foods. In supplement form, consistency of dose and quality can be a concern. Supplements are not recommended for breast cancer survivors For the most part, results from clinical studies show that phytoestrogens are not effective for treatment of hot flashes. Acupuncture Uncomfortable for some, often costly. Generally well-tolerated, but multiple visits required Individual trials have reported some benefits, but larger studies have not shown any improvement over placebo procedures. However some women do report benefits with this, so it is possible that more well-designed studies are needed to answer this question. Vitamin E 13% increase risk of heart failure. Might increase rate in those who use high doses for a long time. A higher risk of prostate cancer has also been shown, but applies only to men. One study showing effective. However the improvement seen in this was only one less hot flash per day compared to placebo. Are the sbcc-swo-liwotqf herbal products (botanicals) safe? While safe when taken in moderate amounts through diet, the consumption of extraordinary amounts of soy and isoflavone supplements may be harmful to women with a history of estrogen-dependent cancer, like breast cancer, and possibly to other women as well. More research is needed to determine the safety and effectiveness of botanical treatments. For example, Ginseng, [place], Wild yam, Progesterone cream, reflexology, and magnetic devices are sold to help menopausal symptoms, but there are no good studies looking at their safety or effectiveness. To make an informed decision about the use of these treatments, be sure to discuss them with your doctor. Because little is known about many botanicals, the best way to evaluate their safety and effectiveness is to become an educated consumer. Here are some tips to consider when shopping for alternative therapies. Ask yourself the following questions: What is the treatment? What does it involve? How does it work? Why does it work? Are there any risks? What are the side effects? Is it effective? (Ask for evidence or proof) How much does it cost? Once you answer these questions, discuss the therapy with your doctor. Make sure your doctor knows what therapy you are considering in order to discuss possible interactions or side effects with your current treatment. What are warning signs that a product may not be legitimate? When trying to determine whether or not a product is what it says it is, one of the elements you may want to look at is how the product is promoted. Be cautious of products promoted through: [employer] Direct mailings [employer] Ads disguised as valid news articles Ads in the back of magazines Additional red flags to look for include: Big claims: If products claim to be a cure for your condition, or gives outrageous claims, be cautious. Source: Be wary if the product is only offered through one crimping machine operator for metal or purchased only through a health care provider?s office. Ingredients: Make sure all of the active ingredients are listed, and don?t trust secret formulas. Testimonials: Remember that only people who are satisfied with a product give testimonials and that they may be getting paid for their endorsement References: National Center for Complementary and Alternative Medicine. Vitamin E. [facility] hospital[facility].nih.gov Assessed May 22, 2012 Leo Faith et al. meta-analysis: High Dosage Vitamin E. Supplementation Might Increase All Cause Mortality. Annals of Internal Medicine February 25, 2004. annals.org National Center for Complementary and Alternative Medicine. Menopausal Symptoms and CAM. nccam.nih.gov Accessed May 22, 2012 [place] [employer], Hormone Therapy for women in 2012. www.menopause.org Assessed May 22, 2012 [place] [employer] Gynec[employer]. Publications. The Menopause Years. www.acog.org Accessed 04/20/2010 Centers for Disease Control and Prevention. Women?s Reproductive Health: Menopause. www.cdc.gov Accessed 04/20/2010 National [place] on Aging. Age Page: Menopause. www.harrison.nih.gov Accessed 04/20/2010 Jennifer Ratliff APRN.COMMERCIAL CRABBER 08/10/2024 8:25 PM Signed Some documentation from previous visit of 06/06/2024 was copied and pasted, documentation has been reviewed and edited as necessary for today's visit. Patient Summary: Jocelyn is a 53 year old Female who presents for follow-up evaluation of obesity/weight management to treat and prevent related co-morbidities. In our previous visits we have discussed lifestyle intervention including a nutrition recommendations and physical activity optimization. Her last office visit was 2 months ago. Assessment/plan from last visit: - Bupropion 300 XL for NADIRA and depression per PCP, also helps with food cravings. - Metformin ER 500 mg - 1 gm at dinner - DC'd due to diarrhea - Trulicity approved by [facility] but denied by [facility]. She will only have [employer] after August 17. - Sleep study done at [facility] - DRE CPAP recommended and started - Weaned off Cymbalta. Doing well on Effexor - Consult to BMI - considering if unsuccessful at weight loss - Semaglutide - Not covered by insurance Interval History PT specifies the following items as new or significant updates since the last appointment: - Reports severe hot flashes and night sweats, describing them as worse, worse. - Experiences episodes of intense sweating and hair getting soaked. - Going through divorce - seeing counselor. Weight loss since last vist: 0 lbs. Date: Weight: BMI: Medications: 08/10/2024 309 lb 54.05 Trulicity - will prescribe after 08/17/2024; 06/06/2024 309 lb 53.61 04/26/2024 311 lb 53.95 Trulicity prescribed - denied 12/21/2023 301 lb 52.22 denied 11/01/2023 300 lb 52.04 Metformin ER 500 mg 5% weight loss = 0 lbs, 10% weight loss = 0 lbs Anti-obesity medications: Benefit:slight increased fullness Adverse effects: none Weight promoting medications: Effexor Inhaled steroid Previous Diet (initial appointment): Awake - 0600 B - 08 coffee with vanilla FF 1 tsp creamer S - none L - 11-12 lunch meat sandwich on wheat with orange or grapes and lemonade or OJ S - none D - 4 pm protein, sometimes breaded and sometimes with gravy/potato or rice/salad or vegetable water or Sprite S - 6 pm fruit or veg in [place] or cookie or chips Fluids: coffee with vanilla FF 1 tsp creamer, lemonade, OJ, regular pop 1 per day, regular Gatorade, regular Body [place] and water Bedtime - 9 pm Quality of diet: 24hr recall suggests unhealthy diet. Characterization of diet:Structured, unhealthy snacking, evening snacking, and increased consumption of sugar sweetened beverages. 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:excessive hunger, lack of satiety, mindlessness , boredom, emotion, and stress Eating Disorder no Cravings: Candy, ice cream Dietary changes: Initial, protein every meal and snack B - 08 - 30 gm protein shake S - none L - 12-1 pm Salad/HB eggs/tomato/onion/low calorie Ranch OR egg salad sandwich on LC wrap and shake or only protein shake S - none D - 4-5 pm chicken breast and corn and Salad and berries with a protein shake S - 7 pm apple/banana/berries Fluids - water, powerade zero - 8 oz over a day Current Barriers: food cravings and reduced physical activity Exercise: - Reports reduced physical activity due to knee pain and foot pain. - Walking more frequently, including around her granddaughter's games and around the block. Stress: - Reports stable stress levels despite current life circumstances. - Currently from her , who is recovering from back surgery. - Living separately but maintains a stable relationship. - Caring for her mother, who recently had a stroke and checked herself out of the hospital. - Attending counseling sessions. Sleep:stable - Recently started using a CPAP machine following a sleep study. - Reports getting 7-8 hours of sleep per night and feeling better rested. - Denies snoring since using the CPAP machine. - Waiting on a different hose for the CPAP machine. Estimated Creatinine Clearance: 123.4 mL/min (based on SCr of 0.75 mg/dL). PAST MEDICAL HISTORY Diagnosis Date Allergic rhinitis, cause unspecified 09/10/2008 Arthritis Arthritis of knee 10/30/2020 Asthma Benign neoplasm of left breast 2018 COVID-19 virus infection 10/14/2021 10/14/2021 Environmental allergies Never formally tested. Sneezes, itches around cats. Excessive or frequent menstruation Heavy periods Fatty liver 01/04/2022 Noted on US 12/2021 Gastroesophageal reflux disease without esophagitis 09/10/2008 Hemorrhage of gastrointestinal tract, unspecified 05/10/2014 Irregular menstrual cycle Irregular periods Liver cyst 01/08/2022 MRI: 12/2021 Mild persistent asthma without complication (HCC) 12/11/2008 Obesity, Class III, BMI >= 40 (morbid obesity) E66.01 12/03/2016 Pneumonia 2008 Required intubation Restless leg syndrome 10/30/2020 Shortness of breath 2007 Was on a ventolator with pneumonia Situational depression 09/28/2022 Tonsil asymmetry 03/04/2018 Lt at 2+ Rt normal. chronic Well adult exam 09/01/2018 Done 10/30/2020 Current Outpatient Medications Medication Sig Dispense Refill montelukast (SINGULAIR) 10 mg tablet TAKE 1 TABLET BY MOUTH ONCE DAILY AT BEDTIME 30 tablet 0 celecoxib (CELEBREX) 200 mg capsule Take 1 capsule by mouth once daily. 30 capsule 0 tiotropium bromide (SPIRIVA RESPIMAT) 1.25 mcg/actuation inhaler Inhale 2 puffs as instructed once daily. 4 g 11 venlafaxine ER (EFFEXOR XR) 37.5 mg 24 hr capsule Take 1 capsule by mouth once daily. 90 capsule 1 dulaglutide (TRULICITY) 0.75 mg/0.5 mL pen injector Inject 0.75 mg subcutaneously one time a week for 28 days. 2 mL 0 metFORMIN ER (GLUCOPHAGE XR) 500 mg 24 hr tablet Take 2 tablets by mouth daily with dinner. 180 tablet 1 fluticasone (FLONASE ALLERGY RELIEF) 50 mcg/actuation nasal spray Use 1 [place] in each nostril once daily. 11.1 mL 0 rOPINIRole (REQUIP) 0.5 mg tablet Take 1 tablet by mouth daily at bedtime. Take with 1mg tab for total of 1.5mg. 90 tablet 1 rOPINIRole (REQUIP) 1 mg tablet Take 1 tablet by mouth daily at bedtime. 90 tablet 1 omeprazole (PRILOSEC) 20 mg capsule TAKE TWO CAPSULES BY MOUTH ONCE DAILY BEFORE BREAKFAST 180 capsule 1 cyclobenzaprine (FLEXERIL) 10 mg tablet Take 1 tablet by mouth three times a day as needed for muscle spasm. 30 tablet 0 buPROPion XL (WELLBUTRIN XL) 300 mg 24 hr tablet Take 1 tablet by mouth once daily. 90 tablet 1 cyanocobalamin (VITAMIN B-12) 1,000 mcg tab Take 1,000 mcg by mouth once daily. cholecalciferol (VITAMIN D-3) 400 unit tab Take 400 Units by mouth once daily. mometasone-formoterol (DULERA) 200-5 mcg/actuation inhaler Inhale 2 Puffs as instructed two times a day. 18 g 11 loratadine (CLARITIN) 10 mg tablet Take 1 tablet by mouth once daily as needed. FOR ALLERGY SYMPTOMS 30 tablet 11 albuterol HFA (PROVENTIL HFA, VENTOLIN HFA) 90 mcg/actuation inhaler INHALE 2 PUFFS BY MOUTH EVERY 6 HOURS NEEDED FOR SHORTNESS OF BREATH AND WHEEZING 1 Each 5 Nebulizer Accessories kit Provide 1 kit. 1 Each 4 albuterol (PROVENTIL) 2.5 mg /3 mL (0.083 %) nebulizer solution Use 3 mL via nebulizer every 4 hours as needed for wheezing/shortness of breath. Use over 5-15minutes. 360 mL 3 fluticasone (FLONASE) 50 mcg/actuation nasal spray Use 1 [place] in each nostril once daily. 1 Each 5 promethazine (PHENERGAN) 25 mg tablet Take 1 tablet by mouth every 6 hours as needed. 12 tablet 0 ProAir RespiClick 90 mcg/actuation breath activated (albuterol sulfate) Inhale 2 Puffs as instructed every 6 hours as needed. 1 Each 5 No current facility-administered medications for this visit. ROS Constitutional: (+) weight gain, (+) night sweats Respiratory: (-) snoring Gastrointestinal: (+) abdominal bloating, (-) diarrhea, (-) heartburn Musculoskeletal: (+) knee pain, (+) foot pain Endocrine: (+) hot flashes Occupation: Unemployed and filing for disability - hearing in November 2024 Contraception: hysterectomy BP 130/81 Pulse 77 Wt (!) 140.2 kg (309 lb) LMP 12/01/2010 (Exact Date) SpO2 98% BMI 54.05 kg/m? PE GENERAL: Pleasant, well-nourished, no acute distress PULMONARY: normal inspiratory effort NEURO: alert and oriented x3 Results: recent labs reviewed with the patient. Glucose (mg/dL) Date Value 04/26/2024 84 10/30/2020 74 Potassium (mmol/L) Date Value 04/26/2024 4.0 10/30/2020 4.1 Sodium (mmol/L) Date Value 04/26/2024 140 10/30/2020 142 Chloride (mmol/L) Date Value 04/26/2024 103 10/30/2020 104 CO2 (mmol/L) Date Value 04/26/2024 27 10/30/2020 24 Creatinine (mg/dL) Date Value 04/26/2024 0.75 10/30/2020 0.80 BUN (mg/dL) Date Value 04/26/2024 15 10/30/2020 13 Anion Gap (mmol/L) Date Value 04/26/2024 10 10/30/2020 14 Calcium (mg/dL) Date Value 10/30/2020 9.7 Calcium, Total (mg/dL) Date Value 04/26/2024 9.6 Latest Ref Rng AND Units 04/26/2024 CMP Sodium 136 - 144 mmol/L 140 Potassium 3.7 - 5.1 mmol/L 4.0 Chloride 98 - 107 mmol/L 103 CO2 22 - 30 mmol/L 27 Glucose 74 - 99 mg/dL 84 BUN 7 - 21 mg/dL 15 Creatinine 0.58 - 0.96 mg/dL 0.75 EGFR >=60 mL/min/1.73m? 97 Calcium 8.5 - 10.2 mg/dL 9.6 Cholesterol, Total (mg/dL) Date Value 11/07/2023 181 03/09/2019 173 Total Cholesterol, Nonfasting (mg/dL) Date Value 10/30/2020 179 HDL Cholesterol (mg/dL) Date Value 11/07/2023 53 03/09/2019 66 HDL Cholesterol, Nonfasting (mg/dL) Date Value 10/30/2020 60 LDL Cholesterol, Calculated (mg/dL) Date Value 11/07/2023 97 03/09/2019 84 LDL Cholesterol Calculated, Nonfasting (mg/dL) Date Value 11/01/2022 89 10/30/2020 89 Triglyceride (mg/dL) Date Value 11/07/2023 155 03/09/2019 113 Triglycerides, Nonfasting (mg/dL) Date Value 10/30/2020 151 Latest Ref Rng AND Units 11/07/2023 CBC WBC 3.70 - 11.00 k/uL 6.23 RBC 3.90 - 5.20 m/uL 4.89 Hemoglobin 11.5 - 15.5 g/dL 12.9 Hematocrit 36.0 - 46.0 % 40.0 MCV 80.0 - 100.0 fL 81.8 MCH 26.0 - 34.0 pg 26.4 MCHC 30.5 - 36.0 g/dL 32.3 RDW-CV 11.5 - 15.0 % 14.0 Platelet Count 150 - 400 k/uL 357 MPV 9.0 - 12.7 fL 9.6 Vitamin D 25 Hydroxy Date Value Ref Range Status 11/07/2023 26.8 (L) 31.0 - 80.0 ng/mL Final Comment: Classification of 25 OH Vitamin D status: Deficiency/Insufficiency: < or = 30 ng/ml. Sufficiency/Optimal Levels: 31-80 ng/mL Toxicity: > 100 ng/mL. Test performed by chemiluminescent immunoassay. TSH Date Value 11/07/2023 2.290 mIU/L 11/01/2022 1.850 mIU/L 10/08/2019 1.670 uU/mL 11/10/2018 2.560 uU/mL Hemoglobin A1C (%) Date Value 11/07/2023 5.3 11/01/2022 5.0 09/30/2021 5.0 10/30/2020 5.0 03/04/2018 4.7 Insulin Date Value Ref Range Status 11/07/2023 33.4 (H) 3.0 - 25.0 mU/L Final Anti-Obesity Medications >Saxenda/Wegovy/Ozempic: Cost. Ins coverage? Family or personal History of MEN2 or Medullary thyroid cancer: no >Metformin: eGFR > 30. No contraindications or medication interactions. Assessment/Plan: Cinthya Bone is a 53 year old yo with Class III obesity who presented today for follow up for supervised weight loss to treat and prevent related co-morbidities. 1. DRE on CPAP (G47.33) - Sleep study completed; patient has been using CPAP machine and reports improved sleep quality. - Awaiting a different hose for the CPAP machine. - Continue CPAP therapy. 2. Gastroesophageal reflux disease without esophagitis (K21.9) - Well-controlled on omeprazole; continue current regimen. 3. Moderate persistent asthma without complication (HCC) (J45.40) - Well-controlled; continue current management. 4. Hyperinsulinemia (E16.1) - Previous metformin therapy discontinued due to severe diarrhea. - Discussed potential benefits of reintroducing metformin ER 500 mg once daily with dinner to enhance the effect of Trulicity. - Educated on potential GI side effects of Trulicity. - Will order Trulicity after 08/17 when [employer] insurance is active. 5. Fatty liver (K76.0) - Discussed importance of weight management and dietary modifications. - Provided detailed nutritional guidance emphasizing high protein intake and low carbohydrate consumption. 6. Arthritis of knee (M17.10) - Pain is tolerable; continue current activity level. - Encouraged regular low-impact exercise such as walking. 7. Menopausal and perimenopausal disorder (N95.9) - Experiencing severe hot flashes and night sweats. - Current medications Effexor and bupropion may provide some relief. - Provided education on non-pharmacological management strategies for hot flashes, including environmental modifications and identifying triggers. 8. Class 3 severe obesity with serious comorbidity and body mass index (BMI) of 50.0 to 59.9 in adult, unspecified obesity type (HCC) (E66.813) Weight stable - Discussed potential for bariatric surgery; [employer] covers the procedure. - Will send consult order for bariatric medicine at the end of July or August 21. - METFORMIN ER 500 MG TABLET,EXTENDED RELEASE 24 HR. - - Discussed potential benefits of reintroducing metformin ER 500 mg once daily with dinner to enhance the effect of Trulicity. Can try taking 500 mg at dinner only.. Was told by pharmacist that if she had side effects from the metformin, her insurance may end up covering a GLP-1. - Will order Trulicity after 08/17 when [employer] insurance is active. - Educated on potential GI side effects of Trulicity. -- We discussed several strategies to track food intake and increase mindfulness around eating will decrease calorie intake. She was counseled on the following: - Reviewed whole food balanced protein, controlled carbohydrate nutrition plan. - Given protein, whole food and high protein nutrition lists. -On protein, carbs and whole versus processed foods -- Encouraged the patient to improve her physical activity as able. An overall goal of 150-200 minutes per week of exercise has been effective in weight loss and maintenance. -- Reviewed that monitoring weight daily and food intake can have a positive impact on overall weight loss and maintenance of weight loss. Activity tracking can be used to stay on target for exercise however should not be used to reward oneself She understands that there can be limitations of pharmacotherapy due to contraindications, side effects and cost. Patient was told to contact her insurance company to see what AOMs and supervised behavioral medical appointments are currently covered. Patient understands she will have more success when following a healthy lifestyle. We reviewed continued use of online tracking of daily weights, food journal and if desired physical activity. We reviewed that during management she is to report any concerning side effects of any pharmacotherapy she is placed on. She understands that she will need routine follow up in the office. Prior to any virtual visits in the future she will need to check her Blood pressure, weight, and pulse. Prescription instructions reviewed with patient as applicable. Potential red flag symptoms discussed with the patient. Reviewed appropriate action plan to take if red flag symptoms occur. Patient agreeable to treatment plan. - Follow-up appointment scheduled in 6 weeks Jennifer Ratliff CNP Advanced Education from the [employer] I spent a total of 60 minutes on the date of the service which included preparing to see the patient, [id number] patient care, completing clinical documentation, obtaining and/or reviewing separately obtained history, performing a medically appropriate examination, and counseling and educating the patient/family/caregiver. Allergies As of Date: 08/10/2024 Noted Allergy Reaction CATS 2011 7 - Swelling Comments: rash Date Reviewed: 08/10/2024 Reviewed by: Jennifer Ratliff APRN.[place] - Fully Assessed Reason for Visit: Weight Management [3933] Primary Visit Diagnosis:DRE on CPAP [G47.33] Other Visit Diagnoses:Gastroesophageal reflux disease without esophagitis [K21.9] Moderate persistent asthma without complication (HCC) [J45.40] Hyperinsulinemia [E16.1] Fatty liver [K76.0] Arthritis of knee [M17.10] Menopausal and perimenopausal disorder [N95.9] Class 3 severe obesity with serious comorbidity and body mass index (BMI) of 50.0 to 59.9 in adult, unspecified obesity type (HCC) [E66.813, Z68.43] Prescriptions as of 08/10/2024 - montelukast (SINGULAIR) 10 mg tablet TAKE 1 TABLET BY MOUTH ONCE DAILY AT BEDTIME - celecoxib (CELEBREX) 200 mg capsule Take 1 capsule by mouth once daily. - tiotropium bromide (SPIRIVA RESPIMAT) 1.25 mcg/actuation inhaler Inhale 2 puffs as instructed once daily. - venlafaxine ER (EFFEXOR XR) 37.5 mg 24 hr capsule Take 1 capsule by mouth once daily. - dulaglutide (TRULICITY) 0.75 mg/0.5 mL pen injector Inject 0.75 mg subcutaneously one time a week for 28 days. - metFORMIN ER (GLUCOPHAGE XR) 500 mg 24 hr tablet Take 2 tablets by mouth daily with dinner. - rOPINIRole (REQUIP) 0.5 mg tablet Take 1 tablet by mouth daily at bedtime. Take with 1mg tab for total of 1.5mg. - rOPINIRole (REQUIP) 1 mg tablet Take 1 tablet by mouth daily at bedtime. - omeprazole (PRILOSEC) 20 mg capsule TAKE TWO CAPSULES BY MOUTH ONCE DAILY BEFORE BREAKFAST - cyclobenzaprine (FLEXERIL) 10 mg tablet Take 1 tablet by mouth three times a day as needed for muscle spasm. - buPROPion XL (WELLBUTRIN XL) 300 mg 24 hr tablet Take 1 tablet by mouth once daily. - cyanocobalamin (VITAMIN B-12) 1,000 mcg tab Take 1,000 mcg by mouth once daily. - cholecalciferol (VITAMIN D-3) 400 unit tab Take 400 Units by mouth once daily. - mometasone-formoterol (DULERA) 200-5 mcg/actuation inhaler Inhale 2 Puffs as instructed two times a day. - loratadine (CLARITIN) 10 mg tablet Take 1 tablet by mouth once daily as needed. FOR ALLERGY SYMPTOMS - albuterol HFA (PROVENTIL HFA, VENTOLIN HFA) 90 mcg/actuation inhaler INHALE 2 PUFFS BY MOUTH EVERY 6 HOURS NEEDED FOR SHORTNESS OF BREATH AND WHEEZING - Nebulizer Accessories kit Provide 1 kit. - albuterol (PROVENTIL) 2.5 mg /3 mL (0.083 %) nebulizer solution Use 3 mL via nebulizer every 4 hours as needed for wheezing/shortness of breath. Use over 5-15minutes. - promethazine (PHENERGAN) 25 mg tablet Take 1 tablet by mouth every 6 hours as needed. - ProAir RespiClick 90 mcg/actuation breath activated (albuterol sulfate) Inhale 2 Puffs as instructed every 6 hours as needed. Problem List As Of Date 08/10/2024 Noted Resolved Shortness of breath [R06.02] 01/13/2011 Pneumonia, organism unspecified [J18.9] 07/15/2006 01/13/2011 Acute respiratory failure [J96.00] 07/15/2006 01/13/2011 ACUTE URI NOS [J06.9] 08/07/2007 09/10/2008 Gastroesophageal reflux disease without esophag*09/10/2008 Allergic rhinitis [J30.9] 09/10/2008 Moderate persistent asthma without complication*12/11/2008 Environmental allergies [Z91.09] Obesity, Class III, BMI >= 40 (morbid obesity) *12/03/2016 Irritable mood [R45.4] 03/04/2018 Post menopausal syndrome [N95.1] 03/04/2018 Tonsil asymmetry [J35.8] 03/04/2018 Encounter for screening for diabetes mellitus [*03/04/2018 Well adult exam [Z00.00] 09/01/2018 Medication management [Z79.899] 09/01/2018 Arthritis of knee [M17.10] 10/30/2020 Restless leg syndrome [G25.81] 10/30/2020 COVID-19 virus infection [U07.1] 10/14/2021 Fatty liver [K76.0] 01/04/2022 Liver cyst [K76.89] 01/08/2022 Situational depression [F43.21] 09/28/2022 DRE (obstructive sleep apnea) [G47.33] 11/01/2023 Class 3 severe obesity with serious comorbidity*12/21/2023 Hyperinsulinemia [E16.1] 12/21/2023 Acute right-sided thoracic back pain [M54.6] 04/27/2024 Other instructions from your clinician: - Continue taking Wellbutrin (bupropion) 300 mg daily for mood and appetite control. - Keep taking omeprazole every morning for acid reflux. - If you?d like to retry metformin extended-release, take 500 mg once daily with dinner; stop if diarrhea returns. - We will send your Trulicity prescription after your [employer] [place] coverage ends so [facility] can process it. - At the same time, a consult order for a bariatric surgery evaluation will be sent since [facility] fully covers the process. - Keep using your CPAP device nightly; switch to the replacement hose when it arrives to maintain therapy for sleep apnea. - Manage hot flashes and menopause symptoms: - Avoid known triggers: hot weather, high humidity, alcohol, spicy foods, caffeine, and stress. - At night, crack open a window, place a fan at the foot of your bed and a small oscillating fan nearby--flip covers on and off without getting out of bed. - During a hot flash, keep your eyes closed, turn on the fan, and reach for cool air; when you feel chilled, turn the fan off and cover up. - Review the menopause information packet provided for additional tips. - Schedule a follow-up visit on Tuesday at 8:30 AM (about six weeks) to review Trulicity tolerance, side effects, and your weight-management progress. - Whole food balanced protein, controlled carbohydrate nutrition plan - 30 g of protein 3 times a day and up to 30 g of carbs at lunch and dinner only. 1st meal of the day- 30g protein with limit of 2 gm carbohydrates. Premier Protein or generic 30 gm protein 1 gm sugar 2. 2-3 eggs and some unbreaded meat and/or cheese. 3. 2-3 eggs and 1/2 of protein shake or one of the yogurts below: :ratio, KETO Friendly Dairy Snack 1 single svg - 15g protein AND 2g carb Two Good Lowfat [place] Yogurt, Lower Sugar - 12g protein AND 2g carb No fruit, vegetables, bread, grain, other brands of yogurt, Smoothies, etc. Lunch and dinner - 30 gm protein is the goal with less than 30 gm carbohydrates All snacks and meals - all protein or more protein than carbs Protein - no carbs Egg 1 large - 6g Egg white 1 large 3.6g 3 oz is approximately the size of a deck of cards and equals 21 g protein so 4 oz is 28 gm protein Beef, Chicken, Gail, Pork, [place] 1 oz 7g Fish, Tuna Fish 1 oz 7g (Starkist tuna packet 2.6 oz 17 gm protein) Seafood (Crabmeat, Shrimp, Lobster) 1 oz 6g Protein shakes (read labels) Premier Protein or generic [employer] Equate, [employer] High Performance- 30g protein AND 1g carb - meal replacement Premier Protein powder or generic- 30 g protein, 1g carb Fairlife 30 gram protein - 30g protein AND 3g carb BOOST Glucose Control Max 30g Protein Nutritional Drink - 30g protein AND 1 carb - meal replacement Slimfast High Protein - 20g protein AND 1g carb Ensure Max Protein Nutrition Shake 30g protein AND 2 carb OWYN plant based 100 % vegan no dairy, soy, wheat/gluten 32g protein 0 net carb (not a meal replacement) Premier Protein plant protein powder - 25g protein, 0 sugar/2g carb Vanilla and chocolate (not a meal replacement) Protein AND carbs Beef/Gail Jerky 1 oz dried 10-15g protein - check carb count, can be high if sugar added Slim [place] - 6 gm protein and 4 net carb Great Value original turkey sausage sticks - 7 gm protein and 2 gm carb Librado (at [facility]) Original smoked sausage sticks - 8 gm protein and 0 carb Imitation Crab Meat 1 oz - 2g protein AND 4g carb Milk, skim 2% or 1% 8 oz - 8g protein AND 12g carb Fairlife 2% milk 8 oz -13g protein AND 6g carb [place] yogurt Full Fat [place] Yogurt 1 cup - 20.4g protein AND 9.1g carb 2% [place] Yogurt 1 cup - 22.7g protein AND 9.1g carb 0% (fat-free) [place] Yogurt - 1 cup 24g protein AND 9.3g carb Aldi Protein [place] yogurt single svg - 13/g15g protein AND 7g carb Chobani Zero Sugar single svg: - 12g protein AND 5g carb Dannon Moz[place] Light + Fit 1 single svg - 12g protein AND 9g carb Oikos Pro single svg - 20g protein AND 8g carb Oikos Triple Zero [place] Nonfat Yogurt 1 single svg - 15g protein AND 7g carb :ratio, KETO Friendly Dairy Snack 1 single svg - 15g protein AND 2g carb :ratio Protein 1 single svg - 25g protein AND 8g carb Two Good Lowfat [place] Yogurt, [place], Lower Sugar - 12g protein AND 2g carb Yoplait Protein 1 single svg 15g protein AND 5g carb Dairy Free - [place] unsweetened [place] almond/soy 15g protein AND 3g carb Dairy Free - True Goodness by [facility] coconut-based yogurt alternative 1 g protein 1 g net carb 180 uma Drinkable yogurts: Chobani drinkable 15g, 20g and 30g protein AND 18 carb (too many carbs for breakfast) Chobani Zero Sugar 10g protein 6g carbs 50 calories Oikos Pro drinkable yogurt 1 single svg - 23g protein AND 8g carb :ratio Protein 26g protein 9g carb Cheese each oz Brie 5.9g protein AND 0.1g carb Cheddar 7g protein AND 0.4g carb Addison 6.7g protein AND 0.7g carb Cream Cheese 1.7g protein AND 1.2g carb [place] whipped [place] cream cheese (WM) 2 T 3g protein 2g carb Feta 4g protein AND 1.2g carb Mozzarella 6.3g protein AND 0.6g carb Parmesan 10g protein AND 0.9g carb Eritrean 7.6g protein AND 1.5g carb Cottage Cheese 1/2 c [place] 2% 13g protein 7g carb [place] 2% 13g protein 5 g carb Good Culture 2% 14g protein 3g carb Lactaid 13g protein 5g carb Delgado?s Low Fat 12g protein AND 4g carb Legumes Lentils ? cup 9g protein AND 20g carb [place] beans ? cup 7g protein AND 20g carb Kidney, Black, [place], Cannellini beans ? cup 8g protein AND 20g carb Chickpeas 1/2 c 6g protein AND 15g carb Soybeans 1/2 c 14g complete protein AND 8.5g carb [place] milk, unsweetened 8 oz 1g protein AND 2g carb Soy milk 8 oz 3.5g protein AND 1.6g carb Tofu 1/2 cup 10g protein AND 2.3g carb Peanut butter, natural 2 Tbsp 7-8g protein AND 4g net carbs, 190 calories PB2 powder 2 Tbsp 6g protein AND 5g carb Nuts and Seeds per oz Almonds - 5.9g protein AND 6.1g carb [place] Nuts - 4.0g protein AND 3.4g carb Cashews - 5.1g protein AND 9.2g carb Hazelnuts - 4.2g protein AND 4.7g carb Hemp seeds/hearts 3 T/30 gms - 9.5 gm complete protein and 2.5 gm carb Peanuts - 7g protein AND 4.6g carb Pecans - 2.6g protein AND 3.9g carb Pistachios - 5.8g protein AND 7.8g carb Pumpkin Seeds - 6.9g protein AND 5g carb [place] Seeds - 5.8g protein AND 5.6g carb Walnuts - 4.3g protein AND 3.8g carb Edamame Beans (soybean) snack 1 pack 11 gm complete protein 2 carb 5 (FIVE) gram carb vegetable options 1 cup raw OR ? cup cooked: Asparagus [place] sprouts Beets Broccoli Brussel sprouts Cabbage Carrots Cauliflower Celery [place] Eggplant Green beans Lettuce Peppers Snap peas Spaghetti squash Spinach Tomato Turnips Zucchini 15 gram carb vegetable options ? cup cooked corn or hominy ? corn on the cob, large (5 oz) ? cup cooked green peas 4.3 gm complete protein ? cup cooked cortes beans 1 small potato or sweet potato ? cup cooked potato, plain ? cup cooked sweet potato, plain 1 cup winter squash (pumpkin, acorn, butternut) 1 cup marinara or pasta sauce - check label ? cup tomato juice ? cup tomato puree Beans, Seeds, Nuts ? cup cooked beans (kidney, bryant, red, green, etc.) ? cup cooked lentils ? cup baked beans 4 tablespoons nut butter <15 gram carb fruit options Berries have the lowest sugar content 1/2 medium apple - 12.5 carbs 1/2 medium avocado - 6.5 gm carbs 1/2 medium banana - 15 carbs 1/2 cup blueberries - 11 carbs - may actually help you lose weight 1/2 cup fresh cherries -11 carbs 1 medium Nicolette -9 carbs 1/2 cup fresh cranberries - 6.5 carbs 1/2 c grapes - 15 carbs 1/2 medium grapefruit - 10.5 carbs 1/2 cup diced honeydew melon - 8 carbs 1 medium kiwi without skin - 11 carbs 1/2 cup sliced lynda -14 carbs 1 medium nectarine - 15 carbs 1 medium orange -15.5 carbs 1 medium peach -14.5 carbs 1/2 cup fresh pineapple -11 carbs 1 medium plum -7.5 carbs 1 prune - 6 carbs 1/4 c raisins - 31.25 carbs 1/2 cup raspberries -7.5 carbs 1/2 c strawberries - 12.7 carbs 1 medium tangerine -12 carbs 1/2 cup diced watermelon - 6 carbs Grains Brown rice 1/2 c 5.5g protein 24 carb White long-grain rice 1/2 c 2g protein 22.5 carb Quinoa 1/2 c 4 gm complete protein 25 carb Oatmeal, old fashioned 1/2 c 5g protein 27g carb High Protein Snack Ideas 1. Jerky 2. [place] mix without dried fruit 3. Gail roll-ups 4. [place] yogurt 5. Veggies and yogurt dip 6. Tuna 7. Hard-boiled eggs 8. Peanut butter with celery 9. Cheese slices/ Cheese Stick 10. Handful of almonds, peanuts or walnuts 11. Cottage Cheese 12. Beef sticks 13. Protein bars 14. Canned [place] 15. Pumpkin seeds 16. Nut butter 17. Protein shake or protein bar 18. Avocado and chicken salad 19. Egg muffins 20. Leftover protein or lunch meat 21. 1/2 c blended cottage cheese or [place] yogurt with dry ranch/Mrs. Dash/herb seasoning mix to make protein dip- add raw veg 22. 1/2 c blended cottage cheese with 1 Tbsp sugar-free dry cheesecake pudding mix 12g protein 10 carb 23. Pudding - 1 30 gm protein shake with 1/2 pkg sugar-free pudding 4 svgs - 7.8 gm protein, 5 carb each svg 24. SF Sunkist or Root Beer with 1-2 Tablespoons heavy whipping cream 25. Mini frozen dessert bites - layer protein yogurt, skinny syrup and crushed nuts and freeze 26. Edamame Beans (soybean) snack 1 pack (O Beans) 11 gm complete protein 2 carb Why Is Protein So Important for Weight loss? consuming more protein not only reduces body weight but enhances body composition by decreasing fat mass while preserving fat-free mass During weight loss phase protein consumption (with normal kidney function) should be 1-1.6g protein per Kilogram of body weight (1kg=2.2lbs) On average Women need to Aim for a minimum 90g protein per day Consuming higher protein can also prevent weight regain after weight loss Protein consumption increases hormones responsible for satiety (feeling full)- these include Gut hormones like Glucagon-like peptide-1 (GLP-1), Cholecystokinin (CCK), Peptide Tyrosine-Tyrosine (PYY) and decreasing the Gut hormone responsible for causing hunger Ghrelin Protein has an increased thermogenesis effect of food- which means it take more calories to break down protein when consumed compared to carbohydrates or fats Protein also prevents a losing lean mass during weight loss (lose more fat and preserve fat free mass) which helps to increase resting energy expenditure (resting metabolic rate) Every pound of muscle baker ~ 6 kcal per pound/day vs fat baker ~ 2kcal per pound/day Carbohydrates - Why do You Crave Them? Eating too many refined carbohyrdates (sugar beverages, pastries, bread, pizza) which raises your blood glucose levels and therefore releasing insulin which in turn causes increase in hunger Carbohydrates suppress Ghrelin quickly but does not maintain the suppression for very long therefore hunger returns more quickly Consuming carbohydrates leads to a release of Dopamine ?feel good hormone? in our brain So how do you Curb these cravings? Eating Whole Foods with more fiber - High fiber carbs are absorbed and digested slowly so it does not impact blood sugar levels as much and will help in making you feel hanson for longer; fiber also is healthy for your gut bacteria and can help with constipation. Remember- carbohydrates are not the enemy but know what a proper serving size is, choose nutritious carbohydrates and space them out between meals. Always- eat your protein first followed by your non starchy vegetables followed by your carbohydrates- it will help your body with your glucose and insulin regulation Processed Foods vs Whole Foods- Impact on Weight: People who eat Ultra Processed food tend to consume about 500 calories more per day Ultra Processed foods are considered ?Calorie Dense? so when a person feels full they have typically already over eaten and consumed more calories Whole Foods (unprocessed foods) tend to be more more filling and more Nutrient Dense Unprocessed foods can be more expensive and not realistic for everyone however when you have the choice to consume unprocessed vs Ultra processed foods always pick unprocessed. Why can't people stop eating Ultra Processed foods? They are economical and optimized for taste by [employer] - they are designed to make you want to keep eating them- they feed common cravings and bypass the mechanisms that tell your brain you are full Benefits of eating Whole Foods and cutting out Ultra Processed Foods Increased concentration and focus (decreased brain fog), improved mood, better sleep, Decrease in fatigue, improvement in gut health, decreased inflammation, Likely WEIGHT LOSS DULAGLUTIDE (Trulicity) - The medication comes in a once weekly, single-dose pen. - The most common adverse reactions reported in >=5% of Trulicity-treated patients in trials were nausea, diarrhea, vomiting, abdominal pain, decreased appetite, dyspepsia, and fatigue.The side effects are usually transient in nature. Please reach out for assistance in managing these symptoms if they persist and are bothersome. Side effects typically occur 1-3 days after the injection, when starting the medication, and with dose increases. With this in mind consider timing the injection like on a Tuesday night, so if you have side effects they will occur on the weekend versus while you are at work. -- We should have further discussions about taking this medication if you have a history of a pancreatitis, a disease called MEN2, or you or a family member has had medullary thyroid cancer. -- please inform me immediately if you are or plan to become . -- Although rare, there is an increased risk for inflammation of the pancreas (pancreatitis), gallbladder problems (including gallstones), low blood sugar (typically when combined with a medication called a sulfonurea), acute kidney injury (bwith nausea/vomiting and resulting dehydration), diabetic retinopathy (damage to the eye's retina), increased heart rate, and suicidal behavior or thinking. -- Please reach out if in-person pen training is needed. -- Keep medication refrigerated. It is good for 2 weeks out of the refrigerator as long as it had not been in high temperatures or direct sunlight. Instructions for Use Trulicity Patient Education How to use the pen: What is Trulicity AND Easy To Use Pen Trulicity (dulaglutide) Full medication guide: Trulicity What Is Trulicity? Trulicity is a brand-name prescription drug that belongs to the drug class glucagon-like peptide-1 (GLP-1) agonists. Trulicity is available as a liquid solution self-injectable medication. It is a pre-filled, disposable, single-use injection pen. Can Trulicity Be Used for Weight Loss? While Trulicity is not a weight loss drug, Similar drugs in the same class of medication called GLP1's have recently been approved for weight loss by the FDA. These drugs are named Wegovy and Saxenda. The medication will be delivered as a once-weekly shot, in combination with diet and exercise. How Does Trulicity for Weight Loss Work? Trulicity is in a drug class called GLP-1 agonists that are used to control blood sugar, and can be taken to assist in weight loss. This drug works by - Slowing down how fast your stomach empties food - Blocking hormones that cause the liver to release sugar - Together, these combined actions cause the feeling of hunger to decrease, which leads to eating less, and finally, weight loss. How Long Does It Take for Trulicity to Work for Weight Loss? Results vary from person to person with Ozempic. Some people may have a quick initial weight drop; for others, it may take more time. Trulicity has been shown to help people lose weight in a safe, long-term, and healthy way. A [facility] doctor will help you with dosages of Trulicity for weight loss and might recommend slowly increasing dosage over time to maximize weight loss. The speed at which you lose weight is largely influenced by the amount of lifestyle changes you are able to make: there is no magic weight loss drug on the market. It?s important to remember that weight loss takes time, and you?ll have the best results if you use Trulicity in combination with exercise and a healthy diet. Trulicity for Weight Loss Dulaglutide: Patient drug information Access [employer] Online for additional drug information, tools, and databases. Copyright 2360-3820 [employer]. All rights reserved. (For additional information see Dulaglutide: Drug information) You must carefully read the Consumer Information Use and Disclaimer below in order to understand and correctly use this information. Brand Names: [place] Trulicity Brand Names: Luis Felipe Trulicity Warning Drugs like this one have been shown to cause thyroid cancer in some animals. It is not known if this drug may cause thyroid cancer in humans. Call your doctor right away if you have a neck mass, trouble breathing, trouble swallowing, or hoarseness that will not go away. Do not use this drug if you have a health problem called Multiple Endocrine Neoplasia syndrome type 2 (MEN 2), or if you or a family member have had thyroid cancer. What is this drug used for? It is used to lower blood sugar in patients with high blood sugar (diabetes). It is used to lower the chance of heart attack, stroke, and in some people. What do I need to tell my doctor BEFORE I take this drug? If you are allergic to this drug; any part of this drug; or any other drugs, foods, or substances. Tell your doctor about the allergy and what signs you had. If you have any of these health problems: Type 1 diabetes or stomach or bowel problems. If you have ever had pancreatitis. If the patient is a child. Do not give this drug to a child. This is not a list of all drugs or health problems that interact with this drug. Tell your doctor and pharmacist about all of your drugs (prescription or OTC, natural products, vitamins) and health problems. You must check to make sure that it is safe for you to take this drug with all of your drugs and health problems. Do not start, stop, or change the dose of any drug without checking with your doctor. What are some things I need to know or do while I take this drug? Tell all of your health care providers that you take this drug. This includes your doctors, nurses, pharmacists, and dentists. Follow the diet and workout plan that your doctor told you about. Wear disease medical alert ID (identification). Check your blood sugar as you have been told by your doctor. Have blood work checked as you have been told by the doctor. Talk with the doctor. Do not drive if your blood sugar has been low. There is a greater chance of you having a crash. It may be harder to control blood sugar during times of stress such as fever, infection, injury, or surgery. A change in physical activity, exercise, or diet may also affect blood sugar. Kidney problems have happened with drugs like this one. Sometimes, kidney problems have needed to be treated in the hospital. Dialysis has also been needed. Talk with your doctor. Tell your doctor if you have upset stomach, throwing up, diarrhea, or too much sweating. Losing too much fluid may raise your chance of kidney problems. If you are dehydrated, talk with your doctor. This drug may prevent other drugs taken by mouth from getting into the body. If you take other drugs by mouth, you may need to take them at some other time than this drug. Talk with your doctor. Do not share pen or cartridge devices with another person even if the needle has been changed. Sharing these devices may pass infections from one person to another. This includes infections you may not know you have. Tell your doctor if you are , plan on getting , or are breast-feeding. You will need to talk about the benefits and risks to you and the baby. What are some side effects that I need to call my doctor about right away? WARNING/CAUTION: Even though it may be rare, some people may have very bad and sometimes deadly side effects when taking a drug. Tell your doctor or get medical help right away if you have any of the following signs or symptoms that may be related to a very bad side effect: Signs of an allergic reaction, like rash; hives; itching; red, swollen, blistered, or peeling skin with or without fever; wheezing; tightness in the chest or throat; trouble breathing, swallowing, or talking; unusual hoarseness; or swelling of the mouth, face, lips, tongue, or throat. Signs of a pancreas problem (pancreatitis) like very bad stomach pain, very bad back pain, or very bad upset stomach or throwing up. Signs of kidney problems like unable to pass urine, change in how much urine is passed, blood in the urine, or a big weight gain. Change in eyesight. Low blood sugar can happen. The chance may be raised when this drug is used with other drugs for diabetes. Signs may be dizziness, headache, feeling sleepy or weak, shaking, fast heartbeat, confusion, hunger, or sweating. Call your doctor right away if you have any of these signs. Follow what you have been told to do for low blood sugar. This may include taking glucose tablets, liquid glucose, or some fruit juices. What are some other side effects of this drug? All drugs may cause side effects. However, many people have no side effects or only have minor side effects. Call your doctor or get medical help if any of these side effects or any other side effects bother you or do not go away: Not hungry. Feeling tired or weak. It is common to have diarrhea, upset stomach, throwing up, or stomach pain with this drug. Call your doctor if any of these side effects get very bad, bother you, or do not go away. These are not all of the side effects that may occur. If you have questions about side effects, call your doctor. Call your doctor for medical advice about side effects. You may report side effects to your national health agency. How is this drug best taken? Use this drug as ordered by your doctor. Read all information given to you. Follow all instructions closely. It is given as a shot into the fatty part of the skin on the top of the thigh, belly area, or upper arm. If you will be giving yourself the shot, your doctor or nurse will teach you how to give the shot. Be sure you know how to use this drug. Read the instructions for use that come with this drug. If there are no instructions for use or you have any questions about how to use this drug, talk with the doctor or pharmacist. Take with or without food. Drink lots of noncaffeine liquids unless told to drink less liquid by your doctor. Take the same day each week. Do not use if the solution is cloudy, leaking, or has particles. Do not use if solution changes color. Wash your hands before and after use. Move site where you give the shot each time. If you are also using insulin, you may inject this drug and the insulin in the same area of the body but not right next to each other. Do not mix this drug in the same syringe with insulin. Keep taking this drug as you have been told by your doctor or other health care provider, even if you feel well. Throw away needles in a needle/sharp disposal box. Do not reuse needles or other items. When the box is full, follow all local rules for getting rid of it. Talk with a doctor or pharmacist if you have any questions. What do I do if I miss a dose? Take a missed dose as soon as you think about it. If it is less than 3 days (72 hours) until your next dose, skip the missed dose. Take your next dose on your normal day. Do not take 2 doses at the same time or extra doses. How do I store and/or throw out this drug? Store in a refrigerator. Do not freeze. Do not use if it has been frozen. If needed, you may store at room temperature for up to 14 days. Write down the date you take this drug out of the refrigerator. If stored at room temperature and not used within 14 days, throw this drug away. Store in the original container to protect from light. Protect from heat. Keep all drugs in a safe place. Keep all drugs out of the reach of children and pets. Throw away unused or drugs. Do not flush down a toilet or pour down a drain unless you are told to do so. Check with your pharmacist if you have questions about the best way to throw out drugs. There may be drug take-back programs in your area. General drug facts If your symptoms or health problems do not get better or if they become worse, call your doctor. Do not share your drugs with others and do not take anyone else's drugs. Some drugs may have another patient information leaflet. If you have any questions about this drug, please talk with your doctor, nurse, pharmacist, or other health care provider. If you think there has been an overdose, call your poison control center or get medical care right away. Be ready to tell or show what was taken, how much, and when it happened. Last Reviewed [id number] Consumer Information Use and Disclaimer This generalized information is a limited summary of diagnosis, treatment, and/or medication information. It is not meant to be comprehensive and should be used as a tool to help the user understand and/or assess potential diagnostic and treatment options. It does NOT include all information about conditions, treatments, medications, side effects, or risks that may apply to a specific patient. It is not intended to be medical advice or a substitute for the medical advice, diagnosis, or treatment of a health care provider based on the health care provider's examination and assessment of a patient's specific and unique circumstances. Patients must speak with a health care provider for complete information about their health, medical questions, and treatment options, including any risks or benefits regarding use of medications. This information does not endorse any treatments or medications as safe, effective, or approved for treating a specific patient. [employer] and its affiliates disclaim any warranty or liability relating to this information or the use thereof. The use of this information is governed by the Terms of Use, available at https://www.[employer].com/en/solutions/lexicomp/about/pito Menopause Symptoms Not all women experiences menopause in the same way. For some, menopause can bring on an array of uncomfortable symptoms. Others may experience few if any discomforts. This information has been prepared to help you manage the most common changes associated with the midlife transition. RELIEVING HOT FLASHES * Identify and avoid your hot flash triggers. Common triggers may include stress, caffeine, alcohol, spicy foods, tight clothing, heat and cigarette smoke. * Keep the bedroom cool. Use fans during the day. Wear light layers of clothes with natural fibers. * Try deep, slow abdominal paced breathing (6 to 8 breaths per minute). Practice deep breathing for 15 minutes in the morning, 15 minutes in the evening and at the onset of hot flashes. * Exercise daily. Walking, swimming, dancing and bicycling with helmet are good choices along with yoga. * Add soy protein in the form of food (40-60 mg) to your diet daily in place of animal protein. Promensil and isoflavone tablets have NOT been shown to significantly help menopausal symptoms * Black cohosh (in the form of Remifemin) can be used for hot flashes and has been approved by [place] [employer] [place] for only 6 months of use, however has NOT been well studied in the [place] for intermediate effects and THERE HAVE BEEN REPORTS OF LIVER TOXICITY WITH BLACK COHOSH USE. (Avoid kava kava, valerian root and beware that most herbal products are NOT regulated in the [place] and some have been associated with liver toxicity) NOTE: HORMONE THERAPY (HT) is the MOST EFFECTIVE treatment and the only FDA approved treatment for menopausal symptoms. Any form of hormones, including 'bioidentical' hormones have risks as well as benefits. * Antidepressants like Effexor (venlaflaxine) a NSRI or Pristiq (desvenlafaxine) another agent, Neurontin (gabapentin) may help block hot flashes and all have risks and benefits like any prescription or off the shelf medicine. * Use of Bellergal is discouraged as it contains an addictive barbiturate. RELIEVING INSOMNIA * Keep the bedroom cool to prevent night sweats. Special chill pillows that are cool are available. * Avoid using sleeping pills. * Exercise daily but not right before bedtime. * Avoid caffeine and alcohol at night. * Take a warm shower at bedtime. COPING WITH MOOD SWINGS, FEARS AND DEPRESSION * Find a self-calming skill to practice, such as yoga, meditation or slow deep breathing. * Avoid tranquilizers, if possible, however prescription anti-depressants can be very effective. * Engage in a creative outlet that fosters a sense of achievement. * Stay connected with your family and community; nurture your friendships. RELIEVING PAINFUL INTERCOURSE * Try using a vaginal water-based moisturizing lotion 3 times a week (like Replens or SILK-E) or lubricant during intercourse like KY jelly or Astroglide. *Local estrogen treatments for the vagina/bladder are available as a cream, tablet or vaginal ring. HELPFUL WEB SITES www.menopause.org www.[email or web address]/[email or web address] Non-Hormonal Ways to [place] with Hot Flashes and Menopause Hormone therapy is the most effective therapy for hot flashes. It is also the only FDA approved method to treat hot flashes. However, other non-hormonal options are available for women who are suffering from symptoms, but are not yet ready to consider hormone therapy. Some women are not appropriate candidates for hormone therapy, such as those have been recently treated for breast cancer, ovarian cancer, or endometrial/uterine cancer. It is important to remember that when used appropriately, hormone therapy can be a safe and effective option for many women. Here we will review non-hormonal treatment options for women. Knowing the triggers of hot flashes Hot flashes may be precipitated by hot weather, smoking, caffeine, spicy foods, alcohol, tight clothing, heat and stress. Identify and avoid your hot flash triggers. Some women notice hot flashes when they eat a lot of sugar. Exercising in warm temperatures might make hot flashes worse. Diet Avoiding caffeine, spicy foods, and alcohol can help lessen both the number and severity of hot flashes. Many women try to incorporate more plant estrogens into their diet. Plant estrogens, such as isoflavones, are thought to have weak estrogen-like effects that may reduce hot flashes. They may work in the body like a weak form of estrogen. Examples of plant estrogens include: soybeans, chickpeas, lentils, flaxseed, grains, beans, fruits, red clover and vegetables. In general, soybeans, chickpeas, and lentils are considered to have the most powerful plant estrogens, though their effect is much less than that of human estrogen. Try to choose natural foods rather than supplements. Also remember that only crushed or ground forms of flaxseed are likely to help (as compared to the whole seed or seed oil forms). What foods have high amounts of isoflavones Food Isoflavone Amount (Mg) In Food (100g) Soymilk 9.65 Soybeans, green, raw 151.17 Soy flour (textured) 148.61 148.61 Soybeans, dry roasted 128.35 Instant beverage soy, powder, not reconstituted 109.51 Miso soup mix, dry 60.39 Soybean chips 54.16 Tempeh, cooked 53.00 Soybean curd cheese 28.20 Tofu, silken 27.91 Tofu, yogurt 16.30 Source: [facility] -- [facility] Database on the Isoflavone Content of Foods, 1998 Lifestyle changes Reducing the temperature in a room, dressing in layers, and the use of a fan while asleep can be effective ways to help deal with troublesome hot flashes. Women who are overweight tend to have more bothersome hot flashes, therefore weight loss can be helpful. Quitting smoking has a dual importance during menopause. First, smoking contributes to the increased cardiovascular risks of being postmenopausal. Second, smokers tend to experience more hot flashes. Women who lead a sedentary life seem to suffer more from hot flashes; however, it is best to exercise in a cooler environment. Try deep, slow abdominal breathing (6 to 8 breaths per minute). Practice deep breathing for 15 minutes in the morning, 15 minutes in the evening and at the onset of hot flashes. For some women, wearing socks to bed is helpful as it can help to cool core body temperature. Relieving insomnia Keep the bedroom cool to prevent night sweats. Avoid using sleeping pills. Exercise daily. Avoid caffeine and alcohol at night. Take a warm bath or shower at bedtime. Try milk products at bedtime or during the night (but avoid products that contain caffeine). Coping with mood swings, fears, and depression Find a self-calming skill to practice, such as yoga, meditation or slow, deep breathing. Avoid tranquilizers, if possible. Engage in a creative outlet that fosters a sense of achievement. Stay connected with your family and community; nurture your friendships. Relieving painful intercourse Try using a vaginal water-based moisturizing lotion or lubricant during intercourse. These are sold without a prescription near the condoms in most stores. Common names include-Astroglide? and [place] liquid?. Avoid Vaseline?, as it may lead to yeast infections. Prescription and nonprescription remedies A number of non-hormonal remedies are available for the treatment of hot flashes. Some of these remedies (e.g., black cohosh and soy products) are available [id number] but are not FDA-approved. Some prescription medications are used ?off label? to help reduce hot flashes. Using a product off label means that it is not FDA approved for the treatment of hot flashes, but is often used because it can be safe and effective for hot flash treatment.(considered the more effective non-hormonal treatments): Drug Side Effect Effectiveness venlafaxine (Effexor?) Nausea, change in bowel habits, headache (temporary side effects for most). Elevated blood pressure (at high doses) Effectiveness has been proven in several well-designed studies. One of the safer medications for women taking tamoxifen (no drug interaction). desvenlafaxine (Pristiq?) Similar to venlafaxine. Nausea, change in bowel habits, headache (temporary side effects for most). Elevated blood pressure (at high doses) Improvement in hot flashes compared to placebo has been shown. Newer med compared to venlafaxine, so a smaller number of studies are available. fluoxetine (Prozac?) Nausea, change in bowel habits, decreased libido, insomnia. Should be avoided in women taking tamoxifen. Improvement in hot flashes has been shown in well-designed studies. paroxetine (Paxil?) Nausea, change in bowel habits, decreased libido, dry mouth, weight gain (not common) Should be avoided in women taking tamoxifen. eTends to be more effective for sleep in women who are also suffering with insomnia. Improvement in hot flashes has been shown in well-designed studies. scitalopram (Lexapro?) Nausea, change in bowel habits, decreased libido, abnormal EKG (not common) Improvement in hot flashes has been shown in well-designed studies. Gabapentin (Neurontin?) Fatigue, dizziness, nausea, disorientation, swelling, weight gain Tends to be more effective for sleep in women who are also suffering with insomnia. Clonidine (Catapres?) Dry mouth, drowsiness, fatigue, constipation, lowers blood pressure Relieved hot flashes in some, but not all studies.Less commonly used than some of the other options. Non-prescription, herbal, [id number] therapies: Drug Side Effects Effectiveness Evening [place] Oil Nausea, diarrhea, headache. Only one well-designed study showing not effective. Black cohosh Mild stomach upset. Safe up to 6 months only due to possible estrogen-like effects. Liver toxicity has been reported. Some small, short-term studies have suggested benefits, however most studies do not suggest that it works. Soy (plant estrogen) Also referred to as phytoestrogens. Appears safe if consumed in foods. In supplement form, consistency of dose and quality can be a concern. Supplements are not recommended for breast cancer survivors For the most part, results from clinical studies show that phytoestrogens are not effective for treatment of hot flashes. Acupuncture Uncomfortable for some, often costly. Generally well-tolerated, but multiple visits required Individual trials have reported some benefits, but larger studies have not shown any improvement over placebo procedures. However some women do report benefits with this, so it is possible that more well-designed studies are needed to answer this question. Vitamin E 13% increase risk of heart failure. Might increase rate in those who use high doses for a long time. A higher risk of prostate cancer has also been shown, but applies only to men. One study showing effective. However the improvement seen in this was only one less hot flash per day compared to placebo. Are the [id number] herbal products (botanicals) safe? While safe when taken in moderate amounts through diet, the consumption of extraordinary amounts of soy and isoflavone supplements may be harmful to women with a history of estrogen-dependent cancer, like breast cancer, and possibly to other women as well. More research is needed to determine the safety and effectiveness of botanical treatments. For example, Ginseng, [place], Wild yam, Progesterone cream, reflexology, and magnetic devices are sold to help menopausal symptoms, but there are no good studies looking at their safety or effectiveness. To make an informed decision about the use of these treatments, be sure to discuss them with your doctor. Because little is known about many botanicals, the best way to evaluate their safety and effectiveness is to become an educated consumer. Here are some tips to consider when shopping for alternative therapies. Ask yourself the following questions: What is the treatment? What does it involve? How does it work? Why does it work? Are there any risks? What are the side effects? Is it effective? (Ask for evidence or proof) How much does it cost? Once you answer these questions, discuss the therapy with your doctor. Make sure your doctor knows what therapy you are considering in order to discuss possible interactions or side effects with your current treatment. What are warning signs that a product may not be legitimate? When trying to determine whether or not a product is what it says it is, one of the elements you may want to look at is how the product is promoted. Be cautious of products promoted through: [employer] Direct mailings Infomercials Ads disguised as valid news articles Ads in the back of magazines Additional red flags to look for include: Big claims: If products claim to be a cure for your condition, or gives outrageous claims, be cautious. Source: Be wary if the product is only offered through one crimping machine operator for metal or purchased only through a health care provider?s office. Ingredients: Make sure all of the active ingredients are listed, and don?t trust secret formulas. Testimonials: Remember that only people who are satisfied with a product give testimonials and that they may be getting paid for their endorsement References: National Center for Complementary and Alternative Medicine. Vitamin E. nccam.nih.gov Assessed May 22, 2012 Leo Faith et al. meta-analysis: High Dosage Vitamin E. Supplementation Might Increase All Cause Mortality. Annals of Internal Medicine February 25, 2004. annals.org National Center for Complementary and Alternative Medicine. Menopausal Symptoms and CAM. nccam.nih.gov Accessed May 22, 2012 [place] [employer], Hormone Therapy for women in 2012. www.menopause.org Assessed May 22, 2012 [place] [employer]. Publications. The Menopause Years. www.acog.org Accessed 04/20/2010 Centers for Disease Control and Prevention. Women?s Reproductive Health: Menopause. www.cdc.gov Accessed 04/20/2010 National [place] on Aging. Age Page: Menopause. www.harrison.nih.gov Accessed 04/20/2010 Medications Discontinued During This Encounter Prescriptions - fluticasone (FLONASE) 50 mcg/actuation nasal spray (Discontinued) Reported on 08/10/2024 - fluticasone (FLONASE ALLERGY RELIEF) 50 mcg/actuation nasal spray (Discontinued) Reported on 08/10/2024 Disposition: Return in about 6 weeks (around 09/21/2024) for wt mgt F/up 0830 30 minutes per AG. Follow-up and Disposition History for Encounter Date Provider Department Center 08/10/2024 [id number]-AOZRQURJENNIFER RATLIFF Encounter Status:Closed by JENNIFER RATLIFF on 08/10/24 CNOV Observed: 07/17/2024 10:00 AM Status: COMPLETED Source: [facility] Office Visit (PULMWS) CINTHYA BONE ([id number]) 1970 F NFR Date Time Provider Department 07/17/24 10:00 AM NENITA WOODS PULMWS During your visit today, we recorded the following information about you: Pulse Respiration Blood pressure Weight 73/minute 14/minute 142/84 140.2 kg Height 1.61 m Nenita Woods, CRIMINAL RESEARCHER.[facility] 07/17/2024 11:00 AM Signed Pulmonary Medicine Patients name: Cinthya Banks PCP: Shashi Jones MD CC: follow-up HPI: Cinthya Bone is a 53 year old morbidly obese female never smoker, with PMH significant for Asthma, GERD, Allergies and history of Covid September 2021. Current maintenance therapy Dulera, Singulair and as needed Albuterol. She presents today for follow-up. [facility]US[facility] 05/23/24 with asthma exacerbation. She has been treated twice now this year for asthma flares. Since that time, she reports overall feeling well and symptoms are back to baseline. Spirometry repeated today which was normal. There was a significant bronchodilator response in the small airways. Nitric oxide is high normal at 42 ppb. Current denies significant allergy symptoms. Uses Singulair and Claritin. Today, patient occasinoal cough which is typically dry. Occasional wheezing. No chest tightness. No dyspnea at rest. Exertional dyspnea has not changed. No fevers, chills, or night sweats. No other courses of steroids/antibiotics since her last visit. Uses Albuterol 1-2x a day for symptoms of SOB. Using Duoneb approximately once a day. PAST MEDICAL HISTORY Diagnosis Date Allergic rhinitis, cause unspecified 09/10/2008 Arthritis Arthritis of knee 10/30/2020 Asthma Benign neoplasm of left breast 2019 COVID-19 virus infection 10/14/2021 10/14/2021 Environmental allergies Never formally tested. Sneezes, itches around cats. Excessive or frequent menstruation Heavy periods Fatty liver 01/04/2022 Noted on US 12/2021 Gastroesophageal reflux disease without esophagitis 09/10/2008 Hemorrhage of gastrointestinal tract, unspecified 05/10/2014 Irregular menstrual cycle Irregular periods Liver cyst 01/08/2022 MRI: 12/2021 Mild persistent asthma without complication (HCC) 12/11/2008 Obesity, Class III, BMI >= 40 (morbid obesity) E66.01 12/03/2016 Pneumonia 2008 Required intubation Restless leg syndrome 10/30/2020 Shortness of breath 2006 Was on a ventolator with pneumonia Situational depression 09/28/2022 Tonsil asymmetry 03/04/2018 Lt at 2+ Rt normal. chronic Well adult exam 09/01/2018 Done 10/30/2020 Allergies: Cats Swelling Comment:rash Medication List Accurate as of July 16, 2024 8:15 PM. If you have any questions, ask your nurse or doctor. CONTINUE taking these medications buPROPion XL 300 mg 24 hr tablet Commonly known as: WELLBUTRIN XL Take 1 tablet by mouth once daily. celecoxib 200 mg capsule Commonly known as: CeleBREX Take 1 capsule by mouth once daily. cyclobenzaprine 10 mg tablet Commonly known as: FLEXERIL Take 1 tablet by mouth three times a day as needed for muscle spasm. dulaglutide 0.75 mg/0.5 mL pen injector Commonly known as: TRULICITY Inject 0.75 mg subcutaneously one time a week for 28 days. DULERA 200-5 mcg/actuation inhaler Generic drug: mometasone-formoterol Inhale 2 Puffs as instructed two times a day. * fluticasone 50 mcg/actuation nasal spray Commonly known as: FLONASE Use 1 [place] in each nostril once daily. * fluticasone 50 mcg/actuation nasal spray Commonly known as: FLONASE ALLERGY RELIEF Use 1 [place] in each nostril once daily. loratadine 10 mg tablet Commonly known as: CLARITIN Take 1 tablet by mouth once daily as needed. FOR ALLERGY SYMPTOMS metFORMIN ER 500 mg 24 hr tablet Commonly known as: GLUCOPHAGE XR Take 2 tablets by mouth daily with dinner. montelukast 10 mg tablet Commonly known as: SINGULAIR Take 1 tablet by mouth daily at bedtime. Nebulizer Accessories Kit Provide 1 kit. omeprazole 20 mg capsule Commonly known as: PriLOSEC TAKE TWO CAPSULES BY MOUTH ONCE DAILY BEFORE BREAKFAST * PROAIR RESPICLICK 90 mcg/actuation Generic drug: albuterol sulfate Inhale 2 Puffs as instructed every 6 hours as needed. * albuterol 2.5 mg /3 mL (0.083 %) nebulizer solution Commonly known as: PROVENTIL Use 3 mL via nebulizer every 4 hours as needed for wheezing/shortness of breath. Use over 5-15minutes. * albuterol HFA 90 mcg/actuation inhaler Commonly known as: PROVENTIL HFA, VENTOLIN HFA INHALE 2 PUFFS BY MOUTH EVERY 6 HOURS NEEDED FOR SHORTNESS OF BREATH AND WHEEZING promethazine 25 mg tablet Commonly known as: PHENERGAN Take 1 tablet by mouth every 6 hours as needed. * rOPINIRole 0.5 mg tablet Commonly known as: REQUIP Take 1 tablet by mouth daily at bedtime. Take with 1mg tab for total of 1.5mg. * rOPINIRole 1 mg tablet Commonly known as: REQUIP Take 1 tablet by mouth daily at bedtime. venlafaxine ER 37.5 mg 24 hr capsule Commonly known as: EFFEXOR XR Take 1 capsule by mouth once daily. VITAMIN B-12 1,000 mcg Tab Generic drug: cyanocobalamin Vitamin D-3 400 unit Tab Generic drug: cholecalciferol * This list has 7 medication(s) that are the same as other medications prescribed for you. Read the directions carefully, and ask your doctor or other care provider to review them with you. DATA: I personally reviewed and analyzed all labs, radiographs and available pulmonary function testing PFT: 07/17/24 CXR: Last XR Chest - Impression Only XR CHEST 2V FRONTAL/LAT Exam End: 05/23/2024 1:54 PM (Final result) Impression: IMPRESSION: No acute radiographic abnormality. ... IMMUNIZATIONS Prevnar - xx Pneumovax 23 - xx Influenza - xx COVID-19 - xx RSV- xx Review of Systems Constitutional: Negative for activity change, appetite change, fatigue and unexpected weight change. HENT: Negative for congestion, mouth sores, postnasal drip and sinus pressure. Respiratory: Positive for shortness of breath and wheezing (rare). Negative for cough and chest tightness. Cardiovascular: Negative for chest pain, palpitations and leg swelling. Allergic/Immunologic: Negative for environmental allergies. Neurological: Negative for dizziness, weakness and light-headedness. BP 142/84 Pulse 73 Resp 14 Ht 161 cm (5' 3.4) Wt (!) 140.2 kg (309 lb) LMP 12/01/2010 (Exact Date) SpO2 98% BMI 54.05 kg/m? Physical Exam Vitals reviewed. Constitutional: General: She is not in acute distress. Appearance: Normal appearance. She is not ill-appearing. HENT: Head: Normocephalic. Nose: No rhinorrhea. Cardiovascular: Rate and Rhythm: Normal rate and regular rhythm. Heart sounds: Normal heart sounds. Pulmonary: Effort: Pulmonary effort is normal. No respiratory distress. Breath sounds: No wheezing or rhonchi. Musculoskeletal: Right lower leg: No edema. Left lower leg: No edema. Skin: General: Skin is warm and dry. Capillary Refill: Capillary refill takes less than 2 seconds. Neurological: General: No focal deficit present. Mental Status: She is alert. ASSESSMENT/PLAN: 1. Moderate persistent asthma without complication (HCC) - ICD9: 493.90, ICD10: J45.40 (primary diagnosis) - currently requiring rescue with Duoneb or Albuterol 1-3x a day. - spirometry today normal - mildly elevated nitric oxide despite compliance with Dulera. - add Spiriva with Dulera - Asthma education: Reviewed asthma signs, symptoms and monitoring and Rinsing after each inhaled steroid use - NITRIC OXIDE, EXHALED 2. Environmental allergies - ICD9: V15.09, ICD10: Z91.09 - currently controlled on Singulair and Claritin 3. Morbid obesity (HCC) - ICD9: 278.01, ICD10: E66.01 - BMI 54 - weight loss highly advised F/u 4 months Portions of this documentation were copied and pasted from previous office visit notes in order to provide a cohesive continuity of the history. The note has been reviewed and edited and updated as necessary. Nenita Woods APRN.DAKOTA I spent a total of 20 minutes on the date of the service which included preparing to see the patient, [id number] patient care, completing clinical documentation, performing a medically appropriate examination, counseling and educating the patient/family/caregiver, and ordering medications, tests, or procedures. Referring Provider: LILLIE PERRY [[id number]] Allergies As of Date: 07/17/2024 Noted Allergy Reaction CATS 2011 7 - Swelling Comments: rash Date Reviewed: 07/17/2024 Reviewed by: Nenita Woods APRN.COMMERCIAL CRABBER - Fully Assessed Reason for Visit: Established Patient [175] Cmt: 3 month follow up asthma Primary Visit Diagnosis:Moderate persistent asthma without complication ([facility]) [J45.40] Other Visit Diagnoses:Environmental allergies [Z91.09] Morbid obesity ([facility]) [E66.01] Order(s):NITRIC OXIDE, EXHALED [[id number]] Order #: [id number]: 1 FUTURE tiotropium bromide (SPIRIVA RESPIMAT) 1.25 mcg/actuation inhalerInhale 2 puffs as instructed once daily.Disp: 4 gRfl: 11 Prescriptions as of 07/17/2024 - tiotropium bromide (SPIRIVA RESPIMAT) 1.25 mcg/actuation inhaler Inhale 2 puffs as instructed once daily. - venlafaxine ER (EFFEXOR XR) 37.5 mg 24 hr capsule Take 1 capsule by mouth once daily. - dulaglutide (TRULICITY) 0.75 mg/0.5 mL pen injector Inject 0.75 mg subcutaneously one time a week for 28 days. - metFORMIN ER (GLUCOPHAGE XR) 500 mg 24 hr tablet Take 2 tablets by mouth daily with dinner. - fluticasone (FLONASE ALLERGY RELIEF) 50 mcg/actuation nasal spray Use 1 [place] in each nostril once daily. - rOPINIRole (REQUIP) 0.5 mg tablet Take 1 tablet by mouth daily at bedtime. Take with 1mg tab for total of 1.5mg. - rOPINIRole (REQUIP) 1 mg tablet Take 1 tablet by mouth daily at bedtime. - omeprazole (PRILOSEC) 20 mg capsule TAKE TWO CAPSULES BY MOUTH ONCE DAILY BEFORE BREAKFAST - cyclobenzaprine (FLEXERIL) 10 mg tablet Take 1 tablet by mouth three times a day as needed for muscle spasm. - buPROPion XL (WELLBUTRIN XL) 300 mg 24 hr tablet Take 1 tablet by mouth once daily. - celecoxib (CELEBREX) 200 mg capsule Take 1 capsule by mouth once daily. - montelukast (SINGULAIR) 10 mg tablet Take 1 tablet by mouth daily at bedtime. - cyanocobalamin (VITAMIN B-12) 1,000 mcg tab Take 1,000 mcg by mouth once daily. - cholecalciferol (VITAMIN D-3) 400 unit tab Take 400 Units by mouth once daily. - mometasone-formoterol (DULERA) 200-5 mcg/actuation inhaler Inhale 2 Puffs as instructed two times a day. - loratadine (CLARITIN) 10 mg tablet Take 1 tablet by mouth once daily as needed. FOR ALLERGY SYMPTOMS - albuterol HFA (PROVENTIL HFA, VENTOLIN HFA) 90 mcg/actuation inhaler INHALE 2 PUFFS BY MOUTH EVERY 6 HOURS NEEDED FOR SHORTNESS OF BREATH AND WHEEZING - Nebulizer Accessories kit Provide 1 kit. - albuterol (PROVENTIL) 2.5 mg /3 mL (0.083 %) nebulizer solution Use 3 mL via nebulizer every 4 hours as needed for wheezing/shortness of breath. Use over 5-15minutes. - fluticasone (FLONASE) 50 mcg/actuation nasal spray Use 1 [place] in each nostril once daily. - promethazine (PHENERGAN) 25 mg tablet Take 1 tablet by mouth every 6 hours as needed. - ProAir RespiClick 90 mcg/actuation breath activated (albuterol sulfate) Inhale 2 Puffs as instructed every 6 hours as needed. Problem List As Of Date 07/17/2024 Noted Resolved Shortness of breath [R06.02] 01/13/2011 Pneumonia, organism unspecified [J18.9] 07/15/2006 01/13/2011 Acute respiratory failure [J96.00] 07/15/2006 01/13/2011 ACUTE URI NOS [J06.9] 08/07/2007 09/10/2008 Gastroesophageal reflux disease without esophag*09/10/2008 Allergic rhinitis [J30.9] 09/10/2008 Moderate persistent asthma without complication*12/11/2008 Environmental allergies [Z91.09] Obesity, Class III, BMI >= 40 (morbid obesity) *12/03/2016 Irritable mood [R45.4] 03/04/2018 Post menopausal syndrome [N95.1] 03/04/2018 Tonsil asymmetry [J35.8] 03/04/2018 Encounter for screening for diabetes mellitus [*03/04/2018 Well adult exam [Z00.00] 09/01/2018 Medication management [Z79.899] 09/01/2018 Arthritis of knee [M17.10] 10/30/2020 Restless leg syndrome [G25.81] 10/30/2020 COVID-19 virus infection [U07.1] 10/14/2021 Fatty liver [K76.0] 01/04/2022 Liver cyst [K76.89] 01/08/2022 Situational depression [F43.21] 09/28/2022 DRE (obstructive sleep apnea) [G47.33] 11/01/2023 Class 3 severe obesity with serious comorbidity*12/21/2023 Hyperinsulinemia [E16.1] 12/21/2023 Acute right-sided thoracic back pain [M54.6] 04/27/2024 Prescriptions ordered this encounter Disp Refills Start End SPIRIVA RESPIMAT 1.25 MCG/ACTUATION * 4 g 11 07/17/2024 Route: INHALATION Sig: Inhale 2 puffs as instructed once daily. Level of Service: OFFICE/OUTPATIENT ESTABLISHED LOW [facility] 20 MIN [[id number]] Disposition: Return in about 4 months (around 11/17/2024). Follow-up and Disposition History for Encounter Date Provider Department Center 07/17/2024 [id number]-ISNEANENITA WOODS Shauna [facility] Encounter Status:Closed by NENITA WOODS on 07/17/24 PROGRESS Observed: 07/17/2024 10:00 AM Status: COMPLETED Source: [facility] ID: [id number] Author: NENITA WOODS APRN.COMMERCIAL CRABBER Service: ? Author Type: Nurse Practitioner Type: Progress Notes Filed: 07/17/2024 11:00 Note Text: Pulmonary Medicine Patients name: Cinthya Banks PCP: Shashi Jones MD CC: follow-up HPI: Cinthya Bone is a 53 year old morbidly obese female never smoker, with PMH significant for Asthma, GERD, Allergies and history of Covid September 2021. Current maintenance therapy Dulera, Singulair and as needed Albuterol. She presents today for follow-up. [facility] 05/23/24 with asthma exacerbation. She has been treated twice now this year for asthma flares. Since that time, she reports overall feeling well and symptoms are back to baseline. Spirometry repeated today which was normal. There was a significant bronchodilator response in the small airways. Nitric oxide is high normal at 42 ppb. Current denies significant allergy symptoms. Uses Singulair and Claritin. Today, patient occasinoal cough which is typically dry. Occasional wheezing. No chest tightness. No dyspnea at rest. Exertional dyspnea has not changed. No fevers, chills, or night sweats. No other courses of steroids/antibiotics since her last visit. Uses Albuterol 1-2x a day for symptoms of SOB. Using Duoneb approximately once a day. PAST MEDICAL HISTORY Diagnosis Date Allergic rhinitis, cause unspecified 09/10/2008 Arthritis Arthritis of knee 10/30/2020 Asthma Benign neoplasm of left breast 2018 COVID-19 virus infection 10/14/2021 10/14/2021 Environmental allergies Never formally tested. Sneezes, itches around cats. Excessive or frequent menstruation Heavy periods Fatty liver 01/04/2022 Noted on US 12/2021 Gastroesophageal reflux disease without esophagitis 09/10/2008 Hemorrhage of gastrointestinal tract, unspecified 05/10/2014 Irregular menstrual cycle Irregular periods Liver cyst 01/08/2022 MRI: 12/2021 Mild persistent asthma without complication (HCC) 12/11/2008 Obesity, Class III, BMI >= 40 (morbid obesity) E66.01 12/03/2016 Pneumonia 2008 Required intubation Restless leg syndrome 10/30/2020 Shortness of breath 2007 Was on a ventolator with pneumonia Situational depression 09/28/2022 Tonsil asymmetry 03/04/2018 Lt at 2+ Rt normal. chronic Well adult exam 09/01/2018 Done 10/30/2020 Allergies: Cats Swelling Comment:rash Medication List Accurate as of July 16, 2024 8:15 PM. If you have any questions, ask your nurse or doctor. CONTINUE taking these medications buPROPion XL 300 mg 24 hr tablet Commonly known as: WELLBUTRIN XL Take 1 tablet by mouth once daily. celecoxib 200 mg capsule Commonly known as: CeleBREX Take 1 capsule by mouth once daily. cyclobenzaprine 10 mg tablet Commonly known as: FLEXERIL Take 1 tablet by mouth three times a day as needed for muscle spasm. dulaglutide 0.75 mg/0.5 mL pen injector Commonly known as: TRULICITY Inject 0.75 mg subcutaneously one time a week for 28 days. DULERA 200-5 mcg/actuation inhaler Generic drug: mometasone-formoterol Inhale 2 Puffs as instructed two times a day. * fluticasone 50 mcg/actuation nasal spray Commonly known as: FLONASE Use 1 [place] in each nostril once daily. * fluticasone 50 mcg/actuation nasal spray Commonly known as: FLONASE ALLERGY RELIEF Use 1 [place] in each nostril once daily. loratadine 10 mg tablet Commonly known as: CLARITIN Take 1 tablet by mouth once daily as needed. FOR ALLERGY SYMPTOMS metFORMIN ER 500 mg 24 hr tablet Commonly known as: GLUCOPHAGE XR Take 2 tablets by mouth daily with dinner. montelukast 10 mg tablet Commonly known as: SINGULAIR Take 1 tablet by mouth daily at bedtime. Nebulizer Accessories Kit Provide 1 kit. omeprazole 20 mg capsule Commonly known as: PriLOSEC TAKE TWO CAPSULES BY MOUTH ONCE DAILY BEFORE BREAKFAST * PROAIR RESPICLICK 90 mcg/actuation Generic drug: albuterol sulfate Inhale 2 Puffs as instructed every 6 hours as needed. * albuterol 2.5 mg /3 mL (0.083 %) nebulizer solution Commonly known as: PROVENTIL Use 3 mL via nebulizer every 4 hours as needed for wheezing/shortness of breath. Use over 5-15minutes. * albuterol HFA 90 mcg/actuation inhaler Commonly known as: PROVENTIL HFA, VENTOLIN HFA INHALE 2 PUFFS BY MOUTH EVERY 6 HOURS NEEDED FOR SHORTNESS OF BREATH AND WHEEZING promethazine 25 mg tablet Commonly known as: PHENERGAN Take 1 tablet by mouth every 6 hours as needed. * rOPINIRole 0.5 mg tablet Commonly known as: REQUIP Take 1 tablet by mouth daily at bedtime. Take with 1mg tab for total of 1.5mg. * rOPINIRole 1 mg tablet Commonly known as: REQUIP Take 1 tablet by mouth daily at bedtime. venlafaxine ER 37.5 mg 24 hr capsule Commonly known as: EFFEXOR XR Take 1 capsule by mouth once daily. VITAMIN B-12 1,000 mcg Tab Generic drug: cyanocobalamin Vitamin D-3 400 unit Tab Generic drug: cholecalciferol * This list has 7 medication(s) that are the same as other medications prescribed for you. Read the directions carefully, and ask your doctor or other care provider to review them with you. DATA: I personally reviewed and analyzed all labs, radiographs and available pulmonary function testing PFT: 07/17/24 CXR: Last XR Chest - Impression Only XR CHEST 2V FRONTAL/LAT Exam End: 05/23/2024 1:54 PM (Final result) Impression: IMPRESSION: No acute radiographic abnormality. ... IMMUNIZATIONS Prevnar - xx Pneumovax 23 - xx Influenza - xx COVID-19 - xx RSV- xx Review of Systems Constitutional: Negative for activity change, appetite change, fatigue and unexpected weight change. HENT: Negative for congestion, mouth sores, postnasal drip and sinus pressure. Respiratory: Positive for shortness of breath and wheezing (rare). Negative for cough and chest tightness. Cardiovascular: Negative for chest pain, palpitations and leg swelling. Allergic/Immunologic: Negative for environmental allergies. Neurological: Negative for dizziness, weakness and light-headedness. BP 142/84 Pulse 73 Resp 14 Ht 161 cm (5' 3.4) Wt (!) 140.2 kg (309 lb) LMP 12/01/2010 (Exact Date) SpO2 98% BMI 54.05 kg/m? Physical Exam Vitals reviewed. Constitutional: General: She is not in acute distress. Appearance: Normal appearance. She is not ill-appearing. HENT: Head: Normocephalic. Nose: No rhinorrhea. Cardiovascular: Rate and Rhythm: Normal rate and regular rhythm. Heart sounds: Normal heart sounds. Pulmonary: Effort: Pulmonary effort is normal. No respiratory distress. Breath sounds: No wheezing or rhonchi. Musculoskeletal: Right lower leg: No edema. Left lower leg: No edema. Skin: General: Skin is warm and dry. Capillary Refill: Capillary refill takes less than 2 seconds. Neurological: General: No focal deficit present. Mental Status: She is alert. ASSESSMENT/PLAN: 1. Moderate persistent asthma without complication (HCC) - ICD9: 493.90, ICD10: J45.40 (primary diagnosis) - currently requiring rescue with Duoneb or Albuterol 1-3x a day. - spirometry today normal - mildly elevated nitric oxide despite compliance with Dulera. - add Spiriva with Dulera - Asthma education: Reviewed asthma signs, symptoms and monitoring and Rinsing after each inhaled steroid use - NITRIC OXIDE, EXHALED 2. Environmental allergies - ICD9: V15.09, ICD10: Z91.09 - currently controlled on Singulair and Claritin 3. Morbid obesity (HCC) - ICD9: 278.01, ICD10: E66.01 - BMI 54 - weight loss highly advised F/u 4 months Portions of this documentation were copied and pasted from previous office visit notes in order to provide a cohesive continuity of the history. The note has been reviewed and edited and updated as necessary. Nenita Woods APRN.DAKOTA I spent a total of 20 minutes on the date of the service which included preparing to see the patient, [id number] patient care, completing clinical documentation, performing a medically appropriate examination, counseling and educating the patient/family/caregiver, and ordering medications, tests, or procedures. PROCEDURE Observed: 07/17/2024 9:21 AM Status: COMPLETED Source: [facility] ID: [id number] Author: ONESIMO CROSS RPFT Service: ? Author Type: Respiratory Therapist Type: Procedures Filed: 07/17/2024 09:21 Note Text: RESPIRATORY THERAPY ORAL EXHALED NITRIC OXIDE SERVICE DATE: 07/17/2024 SERVICE TIME: 9:21 AM Oral Exhaled Nitric Oxide measurement: 42.0 (ppb) Normal: Adult <25 ppb, pediatric (<12 years) <20 ppb High Normal / Increased: Adult 25-50 ppb, pediatric (<12 years) 20-35 ppb Moderately raised exhaled Nitric Oxide may indicate underlying inflammation, but note that: Cold and influenza can raise exhaled Nitric Oxide and some patients have higher baseline exhaled Nitric Oxide levels than others. High: Adult >50 ppb, pediatric (<12 years) >35 ppb Indicative of ongoing eosinophilic inflammation. Symptomatic patient likely to respond to steroids. Possible causes (if already on steroids): Poor compliance, recent allergen exposure, steroid dose inadequate, and steroid resistance. Note that not all patients with high exhaled nitric oxide levels display symptoms. Oral Exhaled Nitric Oxide measurement (Previous Encounters) Test Date Oral Exhaled Nitric Oxide (ppb) 07/17/2024 42.0 (A) 12/08/2022 17.0 05/04/2022 28.0 04/18/2020 35.0 09/08/2018 23.0 09/22/2017 27.0 12/03/2016 34.0 10/01/2016 149.0 (A) NAME: HERVE Reynoso PATIENT NAME: Cinthya Bone DATE: July 17, 2024 TIME: 9:21 AM SPIROMETRY WITH DILATOR IF OBSTRUCTED Observed: 07/17/2024 9:14 AM Status: F Source: [facility] [place] [address] [place] [address] Test Date: 2024-07-17 Pat Name: CINTHYA BONE Department: Room: Gender: Female Securities Underwriter: : 1970 Requested By: Order Number: [id number] Reading MD: Emily Perez MD Interpretive Statements Medications and Allergies were reviewed for possible drug interactions per policy. No contraindications or sensitivities were noted. Meds taken: Dulera 3 hours before testing. 4 puffs Albuterol (360 mcg) delivered by MDI via holding chamber. HR pre = 73/min, HR post = 73/min. Current ATS/ERS acceptability and repeatability standards for spirometry met. Start of test and EOFE criteria met. IMPRESSION: Spirometry reveals a reduced FEV1/FVC with normal FEV1 and FVC values. This could reflect a normal presentation or could indicate mild obstruction. Clinical correlation recommended. The increase in FEF 25-75 post-bronchodilator reflects an improvement in the small airway obstruction. Electronically Signed On 07-17-2024 14:16:18 EDT by Emily Perez MD ID: [id number] Name: CINTHYA BONE Race: White Ht: 63.40 in Wt: 309.00 lbs Age: 53 Gender: Female : 1970 Dx: Moderate persistent asthma, uncomplicated Smoking Hx: Non-smoker Doctor: LILLIE PERRY Test Date: 07/17/2024 Site: [facility] Valdez: YoanbearOnesimo PRE-BRONCH POST-BRONCH Rebecca LLN Pred ULN %Pred ZScore Rebecca %Pred %Chg ZScore SPIROMETRY FVC 3.65 2.31 3.11 3.93 117 1.09 3.78 121 4 1.35 FEV1 2.47 1.86 2.53 3.17 97 -0.16 2.61 103 5 0.19 FEV1/FVC 0.68 0.70 0.81 0.90 83 -1.87 0.69 85 1 -1.71 FEFMax 5.54 4.90 6.58 8.26 84 -1.02 6.05 91 9 -0.52 FEF50 2.13 1.88 3.49 5.10 61 -1.39 2.48 71 16 -1.03 FIF50 4.53 5.10 12 FEF50/FIF50 0.47 90-100 0.49 3 FIVC 3.39 3.29 -2 TXJ35-58 1.40 1.45 2.62 4.11 53 -1.73 1.76 67 25 -1.16 ExpiredTime 13.45 11.86 -11 TimeToFEFMax 0.09 0.08 -9 RINA 0.11 0.10 -8 VolExtrap% 3 3 -11 Comments: Medications and Allergies were reviewed for possible drug interactions per policy. No contraindications or sensitivities were noted. Meds taken: Dulera 3 hours before testing. 4 puffs Albuterol (360 mcg) delivered by MDI via holding chamber. HR pre = 73/min, HR post = 73/min. Current ATS/ERS acceptability and repeatability standards for spirometry met. Start of test and EOFE criteria met. FVC_PRE (L) : 3.65 L FVC_POST (L) : 3.78 L FVC_PRED (L) : 3.11 L FVC_LLN (L) : 2.31 L FVC_ULN (L) : 3.93 L FEV1_PRE (L) : 2.47 L FEV1_POST (L) : 2.61 L FEV1_PRED (L) : 2.53 L FEV1_LLN (L) : 1.86 L FEV1_ULN (L) : 3.17 L FEV1/FVC_PRE (%) : 68 % FEV1/FVC_POST (%) : 69 % FEV1/FVC_PRED (%) : 81 % FEV1/FVC_LLN (%) : 70 % PIY09_QBC (L/S) : 4.44 L/S CUU38_FSZF (L/S) : 5.03 L/S ROL49_YUO (L/S) : 0.37 L/S XML45_QGKG (L/S) : 0.56 L/S DWM32_KBRV (L/S) : 0.85 L/S LRV44_XLE (L/S) : 0.36 L/S QPV08_WJT (L/S) : 1.80 L/S YFT07-53%_PRE (L/S) : 1.40 L/S ZGY50-97%_POST (L/S) : 1.76 L/S PKL88-33%_PRED (L/S) : 2.62 L/S QBX76-75%_LLN (L/S) : 1.45 L/S PEF_PRE (L/S) : 5.54 L/S PEF_POST (L/S) : 6.05 L/S PEFMAX_LLN (L/S) : 4.90 L/S PEFMAX_ULN (L/S) : 8.26 L/S FET_PRE (S) : 13.45 S FET_POST (S) : 11.86 S PROGRESS Observed: 06/25/2024 2:55 PM Status: COMPLETED Source: [facility] ID: [id number] Author: ANGELIC WONG PA-C Service: ? Author Type: Physician Cyber Legal Advisor Type: Progress Notes Filed: 06/25/2024 14:56 Note Text: Large Joint Arthro/Inj: bilateral knee joints 06/25/2024 2:56 PM The procedure site was prepped in the usual sterile fashion. Site: bilateral knee joints Medications (Right): 6 mg betamethasone acetate-betamethasone sodium phosphate 6 mg/mL Medications (Left): 6 mg betamethasone acetate-betamethasone sodium phosphate 6 mg/mL Anesthetics (Right): 5 mL lidocaine (PF) 10 mg/mL (1 %) Anesthetics (Left): 5 mL lidocaine (PF) 10 mg/mL (1 %) Outcome: Tolerated well, no immediate complications Post-injection instructions were reviewed with the patient and the patient voiced understanding of these instructions. Informed Consent Consent Obtained: Verbal [place] Protocol A moment to CARE was completed. SIGN IN Sign in communication not applicable due to emergent procedure. Personnel directly involved with the procedure wore the appropriate PPE. Special Equipment: N/A Patient/Surrogate Stated/Verified: Patient name, Date of , Relevant allergies and Intended procedure TIME OUT Relevant labs, photos, and/or imaging studies have been reviewed. Consent documented and matches the intended procedure. Correct side/site marked and visible. Medications required for procedure verified. No fire risk assessment and interventions applicable. No implant(s) inserted. SIGN OUT No specimen collected. PROGRESS Observed: 06/25/2024 2:19 PM Status: COMPLETED Source: [facility]NO ID: [id number] Author: JENNIFER BENOIT MA Service: ? Author Type: Computerized Machine Fabric Cutter Type: Progress Notes Filed: 06/25/2024 14:56 Note Text: AMB ROOMING INTAKE FLOWSHEET DATA Pain Pain Level: 4 Pain Location: Knee-Left Description: Aching, Shooting, Spasm, Throbbing, Tingling Duration Units: Hours Frequency: Continuous Intervention/Comfort measure: Reposition, Heat CNOV Observed: 06/25/2024 2:00 PM Status: COMPLETED Source: [facility] Office Visit (ORTHWS) CINTHYA BONE ([id number]) 1970 F NFR Date Time Provider Department 06/25/24 2:00 PM ANGELIC WONG During your visit today, we recorded the following information about you: Jennifer Benoit MA 06/25/2024 2:56 PM Signed AMB ROOMING INTAKE FLOWSHEET DATA Pain Pain Level: 4 Pain Location: Knee-Left Description: Aching, Shooting, Spasm, Throbbing, Tingling Duration Units: Hours Frequency: Continuous Intervention/Comfort measure: Reposition, Heat Angelic Wong PA-C 06/25/2024 2:56 PM Signed Large Joint Arthro/Inj: bilateral knee joints 06/25/2024 2:56 PM The procedure site was prepped in the usual sterile fashion. Site: bilateral knee joints Medications (Right): 6 mg betamethasone acetate-betamethasone sodium phosphate 6 mg/mL Medications (Left): 6 mg betamethasone acetate-betamethasone sodium phosphate 6 mg/mL Anesthetics (Right): 5 mL lidocaine (PF) 10 mg/mL (1 %) Anesthetics (Left): 5 mL lidocaine (PF) 10 mg/mL (1 %) Outcome: Tolerated well, no immediate complications Post-injection instructions were reviewed with the patient and the patient voiced understanding of these instructions. Informed Consent Consent Obtained: Verbal [place] Protocol A moment to CARE was completed. SIGN IN Sign in communication not applicable due to emergent procedure. Personnel directly involved with the procedure wore the appropriate PPE. Special Equipment: N/A Patient/Surrogate Stated/Verified: Patient name, Date of , Relevant allergies and Intended procedure TIME OUT Relevant labs, photos, and/or imaging studies have been reviewed. Consent documented and matches the intended procedure. Correct side/site marked and visible. Medications required for procedure verified. No fire risk assessment and interventions applicable. No implant(s) inserted. SIGN OUT No specimen collected. Referring Provider: MINA MAHER [[id number]] Allergies As of Date: 06/25/2024 Noted Allergy Reaction CATS 2011 7 - Swelling Comments: rash Date Reviewed: 06/25/2024 Reviewed by: Jennifer Benoit MA - Fully Assessed Reason for Visit: Established Patient [175] Knee Pain [132] Established Patient [175] Cmt: 15 weeks post visit bilateral knee pain with injections given - wants injections Knee Pain [132] Cmt: 15 weeks post visit bilateral knee pain with injections given - wants injections Primary Visit Diagnosis:Primary osteoarthritis of both knees [M17.0] Order(s):Large Joint Arthro/Inj: bilateral knee joints [ANH466] Order #: [id number] [] betamethasone acetate-betamethasone sodium phosphate 6 mg injection (CELESTONE)Disp: Rfl: [] betamethasone acetate-betamethasone sodium phosphate 6 mg injection (CELESTONE)Disp: Rfl: [] lidocaine (PF) 10 mg/mL (1 %) 5 mL injection (XYLOCAINE)Disp: Rfl: [] lidocaine (PF) 10 mg/mL (1 %) 5 mL injection (XYLOCAINE)Disp: Rfl: Prescriptions as of 06/25/2024 - venlafaxine ER (EFFEXOR XR) 37.5 mg 24 hr capsule Take 1 capsule by mouth once daily. - dulaglutide (TRULICITY) 0.75 mg/0.5 mL pen injector Inject 0.75 mg subcutaneously one time a week for 28 days. - metFORMIN ER (GLUCOPHAGE XR) 500 mg 24 hr tablet Take 2 tablets by mouth daily with dinner. - fluticasone (FLONASE ALLERGY RELIEF) 50 mcg/actuation nasal spray Use 1 [place] in each nostril once daily. - rOPINIRole (REQUIP) 0.5 mg tablet Take 1 tablet by mouth daily at bedtime. Take with 1mg tab for total of 1.5mg. - rOPINIRole (REQUIP) 1 mg tablet Take 1 tablet by mouth daily at bedtime. - omeprazole (PRILOSEC) 20 mg capsule TAKE TWO CAPSULES BY MOUTH ONCE DAILY BEFORE BREAKFAST - cyclobenzaprine (FLEXERIL) 10 mg tablet Take 1 tablet by mouth three times a day as needed for muscle spasm. - buPROPion XL (WELLBUTRIN XL) 300 mg 24 hr tablet Take 1 tablet by mouth once daily. - celecoxib (CELEBREX) 200 mg capsule Take 1 capsule by mouth once daily. - montelukast (SINGULAIR) 10 mg tablet Take 1 tablet by mouth daily at bedtime. - cyanocobalamin (VITAMIN B-12) 1,000 mcg tab Take 1,000 mcg by mouth once daily. - cholecalciferol (VITAMIN D-3) 400 unit tab Take 400 Units by mouth once daily. - mometasone-formoterol (DULERA) 200-5 mcg/actuation inhaler Inhale 2 Puffs as instructed two times a day. - loratadine (CLARITIN) 10 mg tablet Take 1 tablet by mouth once daily as needed. FOR ALLERGY SYMPTOMS - albuterol HFA (PROVENTIL HFA, VENTOLIN HFA) 90 mcg/actuation inhaler INHALE 2 PUFFS BY MOUTH EVERY 6 HOURS NEEDED FOR SHORTNESS OF BREATH AND WHEEZING - Nebulizer Accessories kit Provide 1 kit. - albuterol (PROVENTIL) 2.5 mg /3 mL (0.083 %) nebulizer solution Use 3 mL via nebulizer every 4 hours as needed for wheezing/shortness of breath. Use over 5-15minutes. - fluticasone (FLONASE) 50 mcg/actuation nasal spray Use 1 [place] in each nostril once daily. - promethazine (PHENERGAN) 25 mg tablet Take 1 tablet by mouth every 6 hours as needed. - ProAir RespiClick 90 mcg/actuation breath activated (albuterol sulfate) Inhale 2 Puffs as instructed every 6 hours as needed. Problem List As Of Date 06/25/2024 Noted Resolved Shortness of breath [R06.02] 01/13/2011 Pneumonia, organism unspecified [J18.9] 07/15/2006 01/13/2011 Acute respiratory failure [J96.00] 07/15/2006 01/13/2011 ACUTE URI NOS [J06.9] 08/07/2007 09/10/2008 Gastroesophageal reflux disease without esophag*09/10/2008 Allergic rhinitis [J30.9] 09/10/2008 Moderate persistent asthma without complication*12/11/2008 Environmental allergies [Z91.09] Obesity, Class III, BMI >= 40 (morbid obesity) *12/03/2016 Irritable mood [R45.4] 03/04/2018 Post menopausal syndrome [N95.1] 03/04/2018 Tonsil asymmetry [J35.8] 03/04/2018 Encounter for screening for diabetes mellitus [*03/04/2018 Well adult exam [Z00.00] 09/01/2018 Medication management [Z79.899] 09/01/2018 Arthritis of knee [M17.10] 10/30/2020 Restless leg syndrome [G25.81] 10/30/2020 COVID-19 virus infection [U07.1] 10/14/2021 Fatty liver [K76.0] 01/04/2022 Liver cyst [K76.89] 01/08/2022 Situational depression [F43.21] 09/28/2022 DRE (obstructive sleep apnea) [G47.33] 11/01/2023 Class 3 severe obesity with serious comorbidity*12/21/2023 Hyperinsulinemia [E16.1] 12/21/2023 Acute right-sided thoracic back pain [M54.6] 04/27/2024 Prescriptions ordered this encounter Disp Refills Start End BETAMETHASONE ACETATE AND SODIUM ANNMARIE* 06/25/2024 06/25/2024 Route: Inj-ORTHO BETAMETHASONE ACETATE AND SODIUM ANNMARIE* 06/25/2024 06/25/2024 Route: Inj-ORTHO LIDOCAINE (PF) 10 MG/ML (1 %) INJECT* 06/25/2024 06/25/2024 Route: Inj-ORTHO LIDOCAINE (PF) 10 MG/ML (1 %) INJECT* 06/25/2024 06/25/2024 Route: Inj-ORTHO Encounter Status:Closed by ANGELIC WONG on 06/25/24 XR KNEE 4V AP/PA/LAT/MERCH JONATHAN Observed: 06/25/2024 1:53 PM Status: F Source: [facility] * * *Final Report* * * DATE OF EXAM: Jun 25 2024 1:53PM WRX [id number] - XR KNEE 4V AP/PA/LAT/MERCH JONATHAN / PROCEDURE REASON: multiple diagnoses * * * * Physician Interpretation * * * * EXAMINATION / TECHNIQUE: XR KNEE 4V AP/PA/LAT/MERCH JONATHAN HISTORY: Chronic bilateral knee pain Pain in both knees, unspecified chronicity Pain in both knees, unspecified chronicity COMPARISON: 01/03/2023. RESULT: No acute fracture or dislocation in either knee. Severe bilateral medial compartment osteoarthritis. No large joint effusion in either knee. IMPRESSION: Severe bilateral medial compartment osteoarthritis. Animal Care Worker: CARMELLA Transcribe Date/Time: Jun 28 2024 7:58P Dictated by : ANDRES AWAN MD This examination was interpreted and the report reviewed and electronically signed by: ANDRES AWAN MD on Jun 28 2024 7:58PM EST [id number] PROGRESS Observed: 06/25/2024 1:40 PM Status: COMPLETED Source: [facility] ID: [id number] Author: EVELYNE WALTER RT(R) Service: ? Author Type: Securities Underwriter Type: Progress Notes Filed: 06/25/2024 13:52 Note Text: Radiology Service Progress Note PATIENT NAME: Cinthya Bone DATE OF SERVICE: June 25, 2024 TIME: 1:35 PM PATIENT IDENTITY VERIFICATION COMPLETED USING TWO (2) IDENTIFIERS: Name and Date of confirmed by patient verbally. FALL SCREENING: Has the patient had 2 falls in the last year or 1 fall with injury or currently using an Ambulatory Assistive Device (Walker, Cane, Wheelchair, Crutches, etc.)? No PATIENT GENDER DATA: Assigned female at . status: : No status: NO. PATIENT RELEVANT IMPLANT DATA REVIEWED: Yes PATIENT PRESENTS WITH AN IMPLANTABLE OR ATTACHED MATERIALS MANAGEMENT SUPERVISOR: No RADIOLOGY DEPARTMENT: General X-ray: Exam(s) Completed: Lower Extremity X-Ray(s): Knee, AP / Lat / Tunne / Merchant Bilateral PERIPHERAL IV DATA: Not applicable SIGNED BY: RT Rene(R) June 25, 2024 1:35 PM CNPN Observed: 06/08/2024 12:00 AM Status: COMPLETED Source: [facility] BiosystemsWS) CINTHYA BONE ([id number]) 1970 F NFR Date Time Provider Department 06/08/24 [facility] During your visit today, we recorded the following information about you: Maggy Salcedo, RN 06/08/2024 8:54 AM Signed Pt called in about her test results from yesterday. I let her know that tran and trichomonas came back negative and bacterial Vaginosis came back positive and the provider would need to call in an antibiotic. I let her know I would have provider look at UA, and that urine culture would be in for a couple days. Please call and advise. Component Ref Range AND Units 1 d ago 16 yr ago Color Yellow Yellow Clarity Clear Cloudy Abnormal Glucose, Urine Negative Negative neg R Bilirubin, Urine Negative Negative neg R Ketones, Urine Negative Trace Abnormal trace R Specific [place], Ur 1.005 - 1.030 1.033 High 1.010 Hemoglobin/Blood,Ur Negative Negative neg R pH, Urine <8.5 5.5 5.0 R Protein, Urine Negative Trace Abnormal neg R Urobilinogen 0.2-1.0 EU/dL 0.2 EU/dL Nitrites Negative Negative neg R Leuk Esterase Negative Trace Abnormal WBC, Urine 0-5 /HPF 11-20 /HPF Abnormal RBC, Urine 0-2 /HPF 0-2 /HPF Bacteria uL Negative uL >9,821 High Squamous Epithelial Cells /HPF Many Non-Squamous Epithelial Cells None Seen /HPF Moderate Abnormal Casts, Hyaline 0 /LPF 0 /LPF Urobilinogen, Urine 0.2 R Leukocytes neg R Color/Appearance yellow R Quality Check yes R Juan C Lopez APRN.COMMERCIAL CRABBER 06/08/2024 11:28 AM Signed Please let patient know I have sent in treatment for BV. Urine is likely contaminated from BV. Will await urine culture. Efrain Wright MA 06/08/2024 11:34 AM Signed Pt notified and verbalized understanding Efrain Wright MA Allergies As of Date: 06/08/2024 Noted Allergy Reaction CATS 2011 7 - Swelling Comments: rash Date Reviewed: 06/07/2024 Reviewed by: Efrain Wright MA - Fully Assessed Reason for Visit: Results [95] Primary Visit Diagnosis:BV (bacterial vaginosis) [N76.0, B96.89] Order(s):metroNIDAZOLE (FLAGYL) 500 mg tabletTake 1 tablet by mouth two times a day for 7 days.Disp: 14 tabletRfl: 0 Prescriptions as of 06/08/2024 - metroNIDAZOLE (FLAGYL) 500 mg tablet Take 1 tablet by mouth two times a day for 7 days. - venlafaxine ER (EFFEXOR XR) 37.5 mg 24 hr capsule Take 1 capsule by mouth once daily. - dulaglutide (TRULICITY) 0.75 mg/0.5 mL pen injector Inject 0.75 mg subcutaneously one time a week for 28 days. - metFORMIN ER (GLUCOPHAGE XR) 500 mg 24 hr tablet Take 2 tablets by mouth daily with dinner. - fluticasone (FLONASE ALLERGY RELIEF) 50 mcg/actuation nasal spray Use 1 [place] in each nostril once daily. - rOPINIRole (REQUIP) 0.5 mg tablet Take 1 tablet by mouth daily at bedtime. Take with 1mg tab for total of 1.5mg. - rOPINIRole (REQUIP) 1 mg tablet Take 1 tablet by mouth daily at bedtime. - omeprazole (PRILOSEC) 20 mg capsule TAKE TWO CAPSULES BY MOUTH ONCE DAILY BEFORE BREAKFAST - cyclobenzaprine (FLEXERIL) 10 mg tablet Take 1 tablet by mouth three times a day as needed for muscle spasm. - buPROPion XL (WELLBUTRIN XL) 300 mg 24 hr tablet Take 1 tablet by mouth once daily. - celecoxib (CELEBREX) 200 mg capsule Take 1 capsule by mouth once daily. - montelukast (SINGULAIR) 10 mg tablet Take 1 tablet by mouth daily at bedtime. - cyanocobalamin (VITAMIN B-12) 1,000 mcg tab Take 1,000 mcg by mouth once daily. - cholecalciferol (VITAMIN D-3) 400 unit tab Take 400 Units by mouth once daily. - mometasone-formoterol (DULERA) 200-5 mcg/actuation inhaler Inhale 2 Puffs as instructed two times a day. - loratadine (CLARITIN) 10 mg tablet Take 1 tablet by mouth once daily as needed. FOR ALLERGY SYMPTOMS - albuterol HFA (PROVENTIL HFA, VENTOLIN HFA) 90 mcg/actuation inhaler INHALE 2 PUFFS BY MOUTH EVERY 6 HOURS NEEDED FOR SHORTNESS OF BREATH AND WHEEZING - Nebulizer Accessories kit Provide 1 kit. - albuterol (PROVENTIL) 2.5 mg /3 mL (0.083 %) nebulizer solution Use 3 mL via nebulizer every 4 hours as needed for wheezing/shortness of breath. Use over 5-15minutes. - fluticasone (FLONASE) 50 mcg/actuation nasal spray Use 1 [place] in each nostril once daily. - promethazine (PHENERGAN) 25 mg tablet Take 1 tablet by mouth every 6 hours as needed. - ProAir RespiClick 90 mcg/actuation breath activated (albuterol sulfate) Inhale 2 Puffs as instructed every 6 hours as needed. Problem List As Of Date 06/08/2024 Noted Resolved Shortness of breath [R06.02] 01/13/2011 Pneumonia, organism unspecified [J18.9] 07/15/2006 01/13/2011 Acute respiratory failure [J96.00] 07/15/2006 01/13/2011 ACUTE URI NOS [J06.9] 08/07/2007 09/10/2008 Gastroesophageal reflux disease without esophag*09/10/2008 Allergic rhinitis [J30.9] 09/10/2008 Moderate persistent asthma without complication*12/11/2008 Environmental allergies [Z91.09] Obesity, Class III, BMI >= 40 (morbid obesity) *12/03/2016 Irritable mood [R45.4] 03/04/2018 Post menopausal syndrome [N95.1] 03/04/2018 Tonsil asymmetry [J35.8] 03/04/2018 Encounter for screening for diabetes mellitus [*03/04/2018 Well adult exam [Z00.00] 09/01/2018 Medication management [Z79.899] 09/01/2018 Arthritis of knee [M17.10] 10/30/2020 Restless leg syndrome [G25.81] 10/30/2020 COVID-19 virus infection [U07.1] 10/14/2021 Fatty liver [K76.0] 01/04/2022 Liver cyst [K76.89] 01/08/2022 Situational depression [F43.21] 09/28/2022 DRE (obstructive sleep apnea) [G47.33] 11/01/2023 Class 3 severe obesity with serious comorbidity*12/21/2023 Hyperinsulinemia [E16.1] 12/21/2023 Acute right-sided thoracic back pain [M54.6] 04/27/2024 Prescriptions ordered this encounter Disp Refills Start End METRONIDAZOLE 500 MG TABLET 14 t* 0 06/08/2024 06/15/2024 Route: ORAL Sig: Take 1 tablet by mouth two times a day for 7 days. Encounter Status:Closed by WORKMAN EFRAIN SNYDER on 06/08/24 URINALYSIS COMPLETE PNL UR Collected: 06/07/2024 12:3 4 PM Status: F Source: [facility] Order Comment: Specimen Type : URINE SPECIMEN Ordering Facility: [facility] Address: [address] [place] [address] TYPE CODE TESTS RESULT OUT OF RANGE REFERENCE UNITS LAB 5778-6(LOINC) Color Ur Yellow Yellow LAB 52071-8(LOINC) Clarity Spec Cloudy Abnormal Clear LAB 5792-7(LOINC) Glucose Ur Strip-mCnc Negative Negative LAB 5770-3(LOINC) Bilirub Ur Ql Strip Negative Negative LAB 2514-8(LOINC) Ketones Ur Strip Trace Abnormal Negative LAB 5811-5(LOINC) Sp Gr Ur Strip 1.033 High 1.005-1.030 LAB 5794-3(LOINC) Hgb Ur Ql Strip Negative Negative LAB 5803-2(LOINC) pH Ur Strip 5.5 <8.5 LAB 5804-0(LOINC) Prot Ur Strip-mCnc Trace Abnormal Negative LAB 5818-0(LOINC) Urobilinogen Ur Strip 0.2 EU/dL 0.2-1.0 EU/dL LAB 5802-4(LOINC) Nitrite Ur Ql Strip Negative Negative LAB 5799-2(LOINC) Leukocyte esterase Ur Ql Strip Trace Abnormal Negative LAB 5821-4(LOINC) WBC #/area UrnS HPF 11-20 /HPF Abnormal 0-5 /HPF [facility] RBC #/area UrnS HPF 0-2 /HPF 0-2 /HPF LAB [id number] BACTERIA UL >9821 High Negative uL [facility] 5787[facility] Epi Cells #/area UrnS HPF Many /HPF Result Comment: Moderate LAB 5796-8([facility] Hyaline Casts #/area UrnS LPF 0 /LPF 0 /LPF Performed By: #### [id number] # ### [facility] CLIA [id number] [place] [address] [place] BACTERIA UR CULT Observed: 06/07/2024 12:34 PM Status: F Source: [facility] ORGANISM ID: [id number] -<50,000 CFU/ml Normal urogenital pb Performed By: #### [id number] ### # [facility] CLIA [id number] [address] [place] [id number] [place] BACTERIAL VAGINOSIS NAAT Collected: 9:23 AM Status: F Source: [facility] Order Comment: Specimen Type : SWAB Ordering Facility: [facility] Address: [address] [place] [address] TYPE CODE TESTS RESULT OUT OF RANGE REFERENCE UNITS LAB 96710-4([facility]) BV bacteria rRNA Vag Ql HERMINIA+probe Detected Abnormal Not detected Performed By: #### BVAMP, CV TV #### [facility] CLIA [id number] [address] [place] [address] OF [place] TRAN/TRICHOMONAS NAAT Collected: 9:23 AM Status: F Source: [facility] Order Comment: Specimen Type : SWAB Ordering Facility: [facility] Address: [address] [place] [address] TYPE CODE TESTS RESULT OUT OF RANGE REFERENCE UNITS LAB 68262-9(LOINC ) Tran DNA Vag Ql HERMINIA+probe Not detected Not detected Result Comment: The Tran species group target includes C. albicans, C. tropicalis, C. parapsilosis, and C. dubliniensis. LAB 41239-8(LOINC ) C glabrata RNA Vag Ql HERMINIA+probe Not detected Not detected LAB 53908-7(LOINC ) T vaginalis DNA Spec Ql HERMINIA+probe Not detected Not detected Performed By: #### BVAMP, CV TV #### [facility] CLIA [id number] [address] [place] [address] CNOV Observed: 06/07/2024 9:00 AM Status: COMPLETED Source: [facility] CINTHYA BONE ([id number]) 1970 F NFR Date Time Provider Department 06/07/24 9:00 AM JUAN C LOPEZ During your visit today, we recorded the following information about you: Pulse Blood pressure Weight 86/minute 132/85 139 kg Juan C Lopez APRN.COMMERCIAL CRABBER 06/07/2024 9:59 AM Signed Chief Complaint Patient presents with: Follow Up HPI Cinthya Ojeda Lizandro is a 53 year old female who presents here today for Above Complaints.. Patient presents for medication follow up. Seen 04/27 patient was switched from cymbalta to effexor and her requip was increased as well. Patient reports she is doing well on effexor and has weaned off cymbalta completely. Patient also reports she has vaginal itching, irritation and pain. Has had these symptoms with UTI previously. Past medical history, appointments, medications, allergies reviewed. Previous Medical History PAST MEDICAL HISTORY Diagnosis Date Allergic rhinitis, cause unspecified 09/10/2008 Arthritis Arthritis of knee 10/30/2020 Asthma Benign neoplasm of left breast 2018 COVID-19 virus infection 10/14/2021 10/14/2021 Environmental allergies Never formally tested. Sneezes, itches around cats. Excessive or frequent menstruation Heavy periods Fatty liver 01/04/2022 Noted on US 12/2021 Gastroesophageal reflux disease without esophagitis 09/10/2008 Hemorrhage of gastrointestinal tract, unspecified 05/10/2014 Irregular menstrual cycle Irregular periods Liver cyst 01/08/2022 MRI: 12/2021 Mild persistent asthma without complication (HCC) 12/11/2008 Obesity, Class III, BMI >= 40 (morbid obesity) E66.01 12/03/2016 Pneumonia 2008 Required intubation Restless leg syndrome 10/30/2020 Shortness of breath 2007 Was on a ventolator with pneumonia Situational depression 09/28/2022 Tonsil asymmetry 03/04/2018 Lt at 2+ Rt normal. chronic Well adult exam 09/01/2018 Done 10/30/2020 Previous Surgical History PAST SURGICAL HISTORY Procedure Laterality Date COLONOSCOPY FLX DX W/COLLJ SPEC WHEN PFRMD 05/10/2014 Colonoscopy EXC BREAST LES PREOP PLMT RAD MARKER OPEN 1 LES Left 01/05/2019 HYSTEROSCOPY, DIAGNOSTIC (SEPARATE 06/2010 Hysteroscopy AND curettage INCISE FINGER TENDON SHEATH Right 06/04/2020 Right ring trigger finger LIG/TRNSXJ FLP TUBE ABDL/VAG APPR UNI/BI Tubal ligation VAGINAL HYSTERECTOMY UTERUS 250 GM/< 12/08/2010 TVH Family History FAMILY HISTORY Problem Relation Age of Onset Obesity Mother Cancer Father Stomach Heart Attack Brother 52 Obesity Brother Hypertension Brother Obesity Maternal Grandmother Obesity Maternal Grandfather Heart Paternal Grandmother COPD Paternal Grandmother Emphysema. Smoker. Obesity Paternal Grandmother Obesity Paternal Grandfather Asthma Son Breast Cancer Paternal Aunt Diabetes Paternal Aunt Patient Allergies ALLERGIES Allergen Reactions Cats Swelling rash Current Medications Current Outpatient Medications on File Prior to Visit Medication Sig dulaglutide (TRULICITY) 0.75 mg/0.5 mL pen injector Inject 0.75 mg subcutaneously one time a week for 28 days. metFORMIN ER (GLUCOPHAGE XR) 500 mg 24 hr tablet Take 2 tablets by mouth daily with dinner. fluticasone (FLONASE ALLERGY RELIEF) 50 mcg/actuation nasal spray Use 1 [place] in each nostril once daily. rOPINIRole (REQUIP) 0.5 mg tablet Take 1 tablet by mouth daily at bedtime. Take with 1mg tab for total of 1.5mg. rOPINIRole (REQUIP) 1 mg tablet Take 1 tablet by mouth daily at bedtime. DULoxetine (CYMBALTA) 20 mg capsule Take 1 capsule by mouth once daily. venlafaxine ER (EFFEXOR XR) 37.5 mg 24 hr capsule Take 1 capsule by mouth once daily. omeprazole (PRILOSEC) 20 mg capsule TAKE TWO CAPSULES BY MOUTH ONCE DAILY BEFORE BREAKFAST cyclobenzaprine (FLEXERIL) 10 mg tablet Take 1 tablet by mouth three times a day as needed for muscle spasm. buPROPion XL (WELLBUTRIN XL) 300 mg 24 hr tablet Take 1 tablet by mouth once daily. celecoxib (CELEBREX) 200 mg capsule Take 1 capsule by mouth once daily. montelukast (SINGULAIR) 10 mg tablet Take 1 tablet by mouth daily at bedtime. cyanocobalamin (VITAMIN B-12) 1,000 mcg tab Take 1,000 mcg by mouth once daily. cholecalciferol (VITAMIN D-3) 400 unit tab Take 400 Units by mouth once daily. mometasone-formoterol (DULERA) 200-5 mcg/actuation inhaler Inhale 2 Puffs as instructed two times a day. loratadine (CLARITIN) 10 mg tablet Take 1 tablet by mouth once daily as needed. FOR ALLERGY SYMPTOMS albuterol HFA (PROVENTIL HFA, VENTOLIN HFA) 90 mcg/actuation inhaler INHALE 2 PUFFS BY MOUTH EVERY 6 HOURS NEEDED FOR SHORTNESS OF BREATH AND WHEEZING Nebulizer Accessories kit Provide 1 kit. albuterol (PROVENTIL) 2.5 mg /3 mL (0.083 %) nebulizer solution Use 3 mL via nebulizer every 4 hours as needed for wheezing/shortness of breath. Use over 5-15minutes. fluticasone (FLONASE) 50 mcg/actuation nasal spray Use 1 [place] in each nostril once daily. promethazine (PHENERGAN) 25 mg tablet Take 1 tablet by mouth every 6 hours as needed. ProAir RespiClick 90 mcg/actuation breath activated (albuterol sulfate) Inhale 2 Puffs as instructed every 6 hours as needed. No current facility-administered medications on file prior to visit. Social History Social History Tobacco Use Smoking status: Never Smokeless tobacco: Never Tobacco comments: ETS exposure: Spouse and son smoke in home. Other family visitors smoke. Parents and Grandparents smoked in childhood home. Vaping Use Vaping status: Never Used Substance Use Topics Alcohol use: Not Currently Comment: social Drug use: Not Currently Review of Symptoms REVIEW OF SYSTEMS SEE HPI EXAM: BP 132/85 Pulse 86 Wt (!) 139 kg (306 lb 7 oz) LMP 12/01/2010 (Exact Date) BMI 53.16 kg/m? General Appearance: Well appearing, alert, in no acute distress, well-hydrated, well nourished.. Abdomen: Normal abdominal exam, Abdomen soft, non-tender. Bowel sounds normal. No masses, organomegaly. Health Maintenance List Anxiety Screening Never done Shingrix Vaccine(1 of 2) Never done DTaP,Tdap,Td Vaccine(3 - Td or Tdap) due on 03/11/2023 Covid-19 Vaccine( - 2023- season) due on 10/23/2023 Colorectal Cancer Screening due on 05/10/2024 Mammogram Screening due on 08/07/2024 Annual PCP Team Chronic Disease Visit due on 04/27/2025 Diabetes Screening due on 04/27/2027 Lipid Screening due on 11/06/2028 Hepatitis B Vaccine Completed Spirometry Completed Influenza Vaccine Completed Hepatitis C Screening Completed Pneumococcal Vaccine: 50+ Completed Cervical Cancer Screening Discontinued HIV Screening Discontinued ASSESSMENT/PLAN: 1. Vaginal irritation - ICD9: 623.9, ICD10: N89.8 (primary diagnosis) - URINALYSIS, WITH MICROSCOPIC - BACTERIAL CULTURE, URINE - TRAN/TRICHOMONAS NAAT - BACTERIAL VAGINOSIS NAAT 2. NADIRA (generalized anxiety disorder) - ICD9: 300.02, ICD10: F41.1 - VENLAFAXINE ER 37.5 MG CAPSULE,EXTENDED RELEASE 24 HR 3. Situational depression - ICD9: 309.0, ICD10: F43.21 - VENLAFAXINE ER 37.5 MG CAPSULE,EXTENDED RELEASE 24 HR Juan C Lopez APRN.COMMERCIAL CRABBER Allergies As of Date: 06/07/2024 Noted Allergy Reaction CATS 2011 7 - Swelling Comments: rash Date Reviewed: 06/07/2024 Reviewed by: Efrain Wright MA - Fully Assessed Reason for Visit: Follow Up [171] Primary Visit Diagnosis:Vaginal irritation [N89.8] Other Visit Diagnoses:NADIRA (generalized anxiety disorder) [F41.1] Situational depression [F43.21] Order(s):venlafaxine ER (EFFEXOR XR) 37.5 mg 24 hr capsuleTake 1 capsule by mouth once daily.Disp: 90 capsuleRfl: 1 URINALYSIS, WITH MICROSCOPIC [SQUAWMIC] Order #: [id number] FUTURE BACTERIAL CULTURE, URINE [SQURCUL] Order #: [id number] FUTURE TRAN/TRICHOMONAS NAAT [SQCVTV] Order #: [id number]. #:[id number] BACTERIAL VAGINOSIS NAAT [SQBVAMP] Order #: [id number]. #:[id number] Prescriptions as of 06/07/2024 - venlafaxine ER (EFFEXOR XR) 37.5 mg 24 hr capsule Take 1 capsule by mouth once daily. - dulaglutide (TRULICITY) 0.75 mg/0.5 mL pen injector Inject 0.75 mg subcutaneously one time a week for 28 days. - metFORMIN ER (GLUCOPHAGE XR) 500 mg 24 hr tablet Take 2 tablets by mouth daily with dinner. - fluticasone (FLONASE ALLERGY RELIEF) 50 mcg/actuation nasal spray Use 1 [place] in each nostril once daily. - rOPINIRole (REQUIP) 0.5 mg tablet Take 1 tablet by mouth daily at bedtime. Take with 1mg tab for total of 1.5mg. - rOPINIRole (REQUIP) 1 mg tablet Take 1 tablet by mouth daily at bedtime. - omeprazole (PRILOSEC) 20 mg capsule TAKE TWO CAPSULES BY MOUTH ONCE DAILY BEFORE BREAKFAST - cyclobenzaprine (FLEXERIL) 10 mg tablet Take 1 tablet by mouth three times a day as needed for muscle spasm. - buPROPion XL (WELLBUTRIN XL) 300 mg 24 hr tablet Take 1 tablet by mouth once daily. - celecoxib (CELEBREX) 200 mg capsule Take 1 capsule by mouth once daily. - montelukast (SINGULAIR) 10 mg tablet Take 1 tablet by mouth daily at bedtime. - cyanocobalamin (VITAMIN B-12) 1,000 mcg tab Take 1,000 mcg by mouth once daily. - cholecalciferol (VITAMIN D-3) 400 unit tab Take 400 Units by mouth once daily. - mometasone-formoterol (DULERA) 200-5 mcg/actuation inhaler Inhale 2 Puffs as instructed two times a day. - loratadine (CLARITIN) 10 mg tablet Take 1 tablet by mouth once daily as needed. FOR ALLERGY SYMPTOMS - albuterol HFA (PROVENTIL HFA, VENTOLIN HFA) 90 mcg/actuation inhaler INHALE 2 PUFFS BY MOUTH EVERY 6 HOURS NEEDED FOR SHORTNESS OF BREATH AND WHEEZING - Nebulizer Accessories kit Provide 1 kit. - albuterol (PROVENTIL) 2.5 mg /3 mL (0.083 %) nebulizer solution Use 3 mL via nebulizer every 4 hours as needed for wheezing/shortness of breath. Use over 5-15minutes. - fluticasone (FLONASE) 50 mcg/actuation nasal spray Use 1 [place] in each nostril once daily. - promethazine (PHENERGAN) 25 mg tablet Take 1 tablet by mouth every 6 hours as needed. - ProAir RespiClick 90 mcg/actuation breath activated (albuterol sulfate) Inhale 2 Puffs as instructed every 6 hours as needed. Problem List As Of Date 06/07/2024 Noted Resolved Shortness of breath [R06.02] 01/13/2011 Pneumonia, organism unspecified [J18.9] 07/15/2006 01/13/2011 Acute respiratory failure [J96.00] 07/15/2006 01/13/2011 ACUTE URI NOS [J06.9] 08/07/2007 09/10/2008 Gastroesophageal reflux disease without esophag*09/10/2008 Allergic rhinitis [J30.9] 09/10/2008 Moderate persistent asthma without complication*12/11/2008 Environmental allergies [Z91.09] Obesity, Class III, BMI >= 40 (morbid obesity) *12/03/2016 Irritable mood [R45.4] 03/04/2018 Post menopausal syndrome [N95.1] 03/04/2018 Tonsil asymmetry [J35.8] 03/04/2018 Encounter for screening for diabetes mellitus [*03/04/2018 Well adult exam [Z00.00] 09/01/2018 Medication management [Z79.899] 09/01/2018 Arthritis of knee [M17.10] 10/30/2020 Restless leg syndrome [G25.81] 10/30/2020 COVID-19 virus infection [U07.1] 10/14/2021 Fatty liver [K76.0] 01/04/2022 Liver cyst [K76.89] 01/08/2022 Situational depression [F43.21] 09/28/2022 DRE (obstructive sleep apnea) [G47.33] 11/01/2023 Class 3 severe obesity with serious comorbidity*12/21/2023 Hyperinsulinemia [E16.1] 12/21/2023 Acute right-sided thoracic back pain [M54.6] 04/27/2024 Prescriptions ordered this encounter Disp Refills Start End VENLAFAXINE ER 37.5 MG CAPSULE,EXTEN* 90 c* 1 06/07/2024 Route: ORAL Sig: Take 1 capsule by mouth once daily. Medications Discontinued During This Encounter Prescriptions - DULoxetine (CYMBALTA) 20 mg capsule (Discontinued) Take 1 capsule by mouth once daily. - venlafaxine ER (EFFEXOR XR) 37.5 mg 24 hr capsule (Discontinued) Take 1 capsule by mouth once daily. Encounter Status:Closed by JUAN C LOPEZ on 06/07/24 PROGRESS Observed: 06/07/2024 8:44 AM Status: COMPLETED Source: [facility] ID: [id number] Author: JUAN C LOPEZ APRN.COMMERCIAL CRABBER Service: ? Author Type: Nurse Practitioner Type: Progress Notes Filed: 06/07/2024 09:59 Note Text: Chief Complaint Patient presents with: Follow Up HPI Cinthya Bone is a 53 year old female who presents here today for Above Complaints.. Patient presents for medication follow up. Seen 04/27 patient was switched from cymbalta to effexor and her requip was increased as well. Patient reports she is doing well on effexor and has weaned off cymbalta completely. Patient also reports she has vaginal itching, irritation and pain. Has had these symptoms with UTI previously. Past medical history, appointments, medications, allergies reviewed. Previous Medical History PAST MEDICAL HISTORY Diagnosis Date Allergic rhinitis, cause unspecified 09/10/2008 Arthritis Arthritis of knee 10/30/2020 Asthma Benign neoplasm of left breast 2018 COVID-19 virus infection 10/14/2021 10/14/2021 Environmental allergies Never formally tested. Sneezes, itches around cats. Excessive or frequent menstruation Heavy periods Fatty liver 01/04/2022 Noted on US 12/2021 Gastroesophageal reflux disease without esophagitis 09/10/2008 Hemorrhage of gastrointestinal tract, unspecified 05/10/2014 Irregular menstrual cycle Irregular periods Liver cyst 01/08/2022 MRI: 12/2021 Mild persistent asthma without complication (HCC) 12/11/2008 Obesity, Class III, BMI >= 40 (morbid obesity) E66.01 12/03/2016 Pneumonia 2008 Required intubation Restless leg syndrome 10/30/2020 Shortness of breath 2007 Was on a ventolator with pneumonia Situational depression 09/28/2022 Tonsil asymmetry 03/04/2018 Lt at 2+ Rt normal. chronic Well adult exam 09/01/2018 Done 10/30/2020 Previous Surgical History PAST SURGICAL HISTORY Procedure Laterality Date COLONOSCOPY FLX DX W/COLLJ SPEC WHEN PFRMD 05/10/2014 Colonoscopy EXC BREAST LES PREOP PLMT RAD MARKER OPEN 1 LES Left 01/05/2019 HYSTEROSCOPY, DIAGNOSTIC (SEPARATE 06/2010 Hysteroscopy AND curettage INCISE FINGER TENDON SHEATH Right 06/04/2020 Right ring trigger finger LIG/TRNSXJ FLP TUBE ABDL/VAG APPR UNI/BI Tubal ligation VAGINAL HYSTERECTOMY UTERUS 250 GM/< 12/08/2010 TVH Family History FAMILY HISTORY Problem Relation Age of Onset Obesity Mother Cancer Father Stomach Heart Attack Brother 52 Obesity Brother Hypertension Brother Obesity Maternal Grandmother Obesity Maternal Grandfather Heart Paternal Grandmother COPD Paternal Grandmother Emphysema. Smoker. Obesity Paternal Grandmother Obesity Paternal Grandfather Asthma Son Breast Cancer Paternal Aunt Diabetes Paternal Aunt Patient Allergies ALLERGIES Allergen Reactions Cats Swelling rash Current Medications Current Outpatient Medications on File Prior to Visit Medication Sig dulaglutide (TRULICITY) 0.75 mg/0.5 mL pen injector Inject 0.75 mg subcutaneously one time a week for 28 days. metFORMIN ER (GLUCOPHAGE XR) 500 mg 24 hr tablet Take 2 tablets by mouth daily with dinner. fluticasone (FLONASE ALLERGY RELIEF) 50 mcg/actuation nasal spray Use 1 [place] in each nostril once daily. rOPINIRole (REQUIP) 0.5 mg tablet Take 1 tablet by mouth daily at bedtime. Take with 1mg tab for total of 1.5mg. rOPINIRole (REQUIP) 1 mg tablet Take 1 tablet by mouth daily at bedtime. DULoxetine (CYMBALTA) 20 mg capsule Take 1 capsule by mouth once daily. venlafaxine ER (EFFEXOR XR) 37.5 mg 24 hr capsule Take 1 capsule by mouth once daily. omeprazole (PRILOSEC) 20 mg capsule TAKE TWO CAPSULES BY MOUTH ONCE DAILY BEFORE BREAKFAST cyclobenzaprine (FLEXERIL) 10 mg tablet Take 1 tablet by mouth three times a day as needed for muscle spasm. buPROPion XL (WELLBUTRIN XL) 300 mg 24 hr tablet Take 1 tablet by mouth once daily. celecoxib (CELEBREX) 200 mg capsule Take 1 capsule by mouth once daily. montelukast (SINGULAIR) 10 mg tablet Take 1 tablet by mouth daily at bedtime. cyanocobalamin (VITAMIN B-12) 1,000 mcg tab Take 1,000 mcg by mouth once daily. cholecalciferol (VITAMIN D-3) 400 unit tab Take 400 Units by mouth once daily. mometasone-formoterol (DULERA) 200-5 mcg/actuation inhaler Inhale 2 Puffs as instructed two times a day. loratadine (CLARITIN) 10 mg tablet Take 1 tablet by mouth once daily as needed. FOR ALLERGY SYMPTOMS albuterol HFA (PROVENTIL HFA, VENTOLIN HFA) 90 mcg/actuation inhaler INHALE 2 PUFFS BY MOUTH EVERY 6 HOURS NEEDED FOR SHORTNESS OF BREATH AND WHEEZING Nebulizer Accessories kit Provide 1 kit. albuterol (PROVENTIL) 2.5 mg /3 mL (0.083 %) nebulizer solution Use 3 mL via nebulizer every 4 hours as needed for wheezing/shortness of breath. Use over 5-15minutes. fluticasone (FLONASE) 50 mcg/actuation nasal spray Use 1 [place] in each nostril once daily. promethazine (PHENERGAN) 25 mg tablet Take 1 tablet by mouth every 6 hours as needed. ProAir RespiClick 90 mcg/actuation breath activated (albuterol sulfate) Inhale 2 Puffs as instructed every 6 hours as needed. No current facility-administered medications on file prior to visit. Social History Social History Tobacco Use Smoking status: Never Smokeless tobacco: Never Tobacco comments: ETS exposure: Spouse and son smoke in home. Other family visitors smoke. Parents and Grandparents smoked in childhood home. Vaping Use Vaping status: Never Used Substance Use Topics Alcohol use: Not Currently Comment: social Drug use: Not Currently Review of Symptoms REVIEW OF SYSTEMS SEE HPI EXAM: BP 132/85 Pulse 86 Wt (!) 139 kg (306 lb 7 oz) LMP 12/01/2010 (Exact Date) BMI 53.16 kg/m? General Appearance: Well appearing, alert, in no acute distress, well-hydrated, well nourished.. Abdomen: Normal abdominal exam, Abdomen soft, non-tender. Bowel sounds normal. No masses, organomegaly. Health Maintenance List Anxiety Screening Never done Shingrix Vaccine(1 of 2) Never done DTaP,Tdap,Td Vaccine(3 - Td or Tdap) due on 03/11/2023 Covid-19 Vaccine(3 - 2023- season) due on 10/23/2023 Colorectal Cancer Screening due on 05/10/2024 Mammogram Screening due on 08/07/2024 Annual PCP Team Chronic Disease Visit due on 04/27/2025 Diabetes Screening due on 04/27/2027 Lipid Screening due on 11/06/2028 Hepatitis B Vaccine Completed Spirometry Completed Influenza Vaccine Completed Hepatitis C Screening Completed Pneumococcal Vaccine: 50+ Completed Cervical Cancer Screening Discontinued HIV Screening Discontinued ASSESSMENT/PLAN: 1. Vaginal irritation - ICD9: 623.9, ICD10: N89.8 (primary diagnosis) - URINALYSIS, WITH MICROSCOPIC - BACTERIAL CULTURE, URINE - TRAN/TRICHOMONAS NAAT - BACTERIAL VAGINOSIS NAAT 2. NADIRA (generalized anxiety disorder) - ICD9: 300.02, ICD10: F41.1 - VENLAFAXINE ER 37.5 MG CAPSULE,EXTENDED RELEASE 24 HR 3. Situational depression - ICD9: 309.0, ICD10: F43.21 - VENLAFAXINE ER 37.5 MG CAPSULE,EXTENDED RELEASE 24 HR Juan C Lopez APRN.[place] PROGRESS Observed: 06/06/2024 11:30 AM Status: COMPLETED Source: [facility] HNO ID: [id number] Author: JENNIFER RATLIFF APRN.COMMERCIAL CRABBER Service: ? Author Type: Nurse Practitioner Type: Progress Notes Filed: 06/06/2024 13:01 Note Text: Some documentation from previous visit of 04/26/2024 was copied and pasted, documentation has been reviewed and edited as necessary for today's visit. Patient Summary: Jocelyn is a 53 year old Female who presents for follow-up evaluation of obesity/weight management to treat and prevent related co-morbidities. In our previous visits we have discussed lifestyle intervention including a nutrition recommendations and physical activity optimization. Her last office visit was 6 weeks ago. Assessment/plan from last visit: - Bupropion 300 XL for NADIRA and depression per PCP - Metformin ER 500 mg - 1 gm at dinner - [facility] - needed new sleep study for prior auth which has been done - denied - Sleep study done at [facility] - DRE recommend CPAP. Order signed. Consult to BMI - considering if unsuccessful at weight loss Interval History PT specifies the following items as new or significant updates since the last appointment: Was sick and had bad cough for 2 weeks - antibiotics and prednisone - Going through divorce - seeing counselor. Weight loss since last vist:-2 lbs. Date: Weight: BMI: Medications: 06/06/2024 309 lb 53.61 04/26/2024 311 lb 53.95 Trulicity 12/21/2023 301 lb 52.22 denied 11/01/2023 300 lb 52.04 Metformin ER 500 mg 5% weight loss = 0 lbs, 10% weight loss = 0 lbs Anti-obesity medications: Metformin ER Benefit:slight increased fullness Adverse effects: none Weight promoting medications: Other Cymbalta Inhaled steroid Previous Diet (initial appointment): Awake - 0600 B - 08 coffee with vanilla FF 1 tsp creamer S - none L - 11-12 lunch meat sandwich on wheat with orange or grapes and lemonade or OJ S - none D - 4 pm protein, sometimes breaded and sometimes with gravy/potato or rice/salad or vegetable water or Sprite S - 6 pm fruit or veg in [place] or cookie or chips Fluids: coffee with vanilla FF 1 tsp creamer, lemonade, OJ, regular pop 1 per day, regular Gatorade, regular Body [place] and water Bedtime - 9 pm Quality of diet: 24hr recall suggests unhealthy diet. Characterization of diet:Structured, unhealthy snacking, evening snacking, and increased consumption of sugar sweetened beverages. 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:excessive hunger, lack of satiety, mindlessness , boredom, emotion, and stress Eating Disorder no Cravings: Candy, ice cream Dietary changes: Initial, protein every meal and snack B - - 30 gm protein shake and 2 HB egg and banana occasional OJ S - none L - 12-1 pm Salad/HB eggs/tomato/onion/low calorie [place] OR egg salad sandwich on wheat bread S - apple D - 4-5 pm chicken breast and corn/rice and Salad and fruit - watermelon. S - 7 pm SmartPop and banana Fluids - water, powerade zero - 8 oz over a day, occasional OJ Current Barriers: emotional eating, food cravings, lack of motivation, and reduced physical activity Exercise:stable Regular exercise: walking around block, up and down steps Strength/resistance exercise:yes Barriers to regular exercise? yes left knee pain (seeing Dr. Maher) Work-related activity:Sedentary. Gym Membership: no Activity Tracker: yes, but not currently using average steps per day ? Stress: stable Financial and Personal Sleep:stable 6-7 hours - tosses and turns because of leg pain. DRE YES Sleep study repeated at [facility] ; CPAP Ordered Estimated Creatinine Clearance: 122 mL/min (based on SCr of 0.75 mg/dL). PAST MEDICAL HISTORY Diagnosis Date Allergic rhinitis, cause unspecified 09/10/2008 Arthritis Arthritis of knee 10/30/2020 Asthma Benign neoplasm of left breast 2019 COVID-19 virus infection 10/14/2021 10/14/2021 Environmental allergies Never formally tested. Sneezes, itches around cats. Excessive or frequent menstruation Heavy periods Fatty liver 01/04/2022 Noted on US 12/2021 Gastroesophageal reflux disease without esophagitis 09/10/2008 Hemorrhage of gastrointestinal tract, unspecified 05/10/2014 Irregular menstrual cycle Irregular periods Liver cyst 01/08/2022 MRI: 12/2021 Mild persistent asthma without complication (HCC) 12/11/2008 Obesity, Class III, BMI >= 40 (morbid obesity) E66.01 12/03/2016 Pneumonia 2008 Required intubation Restless leg syndrome 10/30/2020 Shortness of breath 2007 Was on a ventolator with pneumonia Situational depression 09/28/2022 Tonsil asymmetry 03/04/2018 Lt at 2+ Rt normal. chronic Well adult exam 09/01/2018 Done 10/30/2020 Current Outpatient Medications Medication Sig Dispense Refill fluticasone (FLONASE ALLERGY RELIEF) 50 mcg/actuation nasal spray Use 1 [place] in each nostril once daily. 11.1 mL 0 rOPINIRole (REQUIP) 0.5 mg tablet Take 1 tablet by mouth daily at bedtime. Take with 1mg tab for total of 1.5mg. 90 tablet 1 rOPINIRole (REQUIP) 1 mg tablet Take 1 tablet by mouth daily at bedtime. 90 tablet 1 DULoxetine (CYMBALTA) 20 mg capsule Take 1 capsule by mouth once daily. 30 capsule 0 venlafaxine ER (EFFEXOR XR) 37.5 mg 24 hr capsule Take 1 capsule by mouth once daily. 60 capsule 0 dulaglutide (TRULICITY) 0.75 mg/0.5 mL pen injector Inject 0.75 mg subcutaneously one time a week for 28 days. (Patient not taking: Reported on 05/19/2024) 2 mL 0 omeprazole (PRILOSEC) 20 mg capsule TAKE TWO CAPSULES BY MOUTH ONCE DAILY BEFORE BREAKFAST 180 capsule 1 cyclobenzaprine (FLEXERIL) 10 mg tablet Take 1 tablet by mouth three times a day as needed for muscle spasm. 30 tablet 0 buPROPion XL (WELLBUTRIN XL) 300 mg 24 hr tablet Take 1 tablet by mouth once daily. 90 tablet 1 celecoxib (CELEBREX) 200 mg capsule Take 1 capsule by mouth once daily. 30 capsule 5 montelukast (SINGULAIR) 10 mg tablet Take 1 tablet by mouth daily at bedtime. 30 tablet 5 cyanocobalamin (VITAMIN B-12) 1,000 mcg tab Take 1,000 mcg by mouth once daily. cholecalciferol (VITAMIN D-3) 400 unit tab Take 400 Units by mouth once daily. metFORMIN ER (GLUCOPHAGE XR) 500 mg 24 hr tablet Take 2 tablets by mouth daily with dinner. 180 tablet 1 mometasone-formoterol (DULERA) 200-5 mcg/actuation inhaler Inhale 2 Puffs as instructed two times a day. 18 g 11 loratadine (CLARITIN) 10 mg tablet Take 1 tablet by mouth once daily as needed. FOR ALLERGY SYMPTOMS 30 tablet 11 albuterol HFA (PROVENTIL HFA, VENTOLIN HFA) 90 mcg/actuation inhaler INHALE 2 PUFFS BY MOUTH EVERY 6 HOURS NEEDED FOR SHORTNESS OF BREATH AND WHEEZING 1 Each 5 Nebulizer Accessories kit Provide 1 kit. 1 Each 4 albuterol (PROVENTIL) 2.5 mg /3 mL (0.083 %) nebulizer solution Use 3 mL via nebulizer every 4 hours as needed for wheezing/shortness of breath. Use over 5-15minutes. 360 mL 3 fluticasone (FLONASE) 50 mcg/actuation nasal spray Use 1 [place] in each nostril once daily. 1 Each 5 promethazine (PHENERGAN) 25 mg tablet Take 1 tablet by mouth every 6 hours as needed. 12 tablet 0 ProAir RespiClick 90 mcg/actuation breath activated (albuterol sulfate) Inhale 2 Puffs as instructed every 6 hours as needed. 1 Each 5 No current facility-administered medications for this visit. ROS/Fam Hx pertaining to AOMs: GEN: Fatigue:yes PULM: Asthma:yes GI: GERD:yes Fatty liver disease:yes MSK: Joint Pain:yes Occupation: Unemployed and filing for disability Contraception: hysterectomy BP 139/83 Pulse 72 Wt (!) 140.2 kg (309 lb) LMP 12/01/2010 (Exact Date) SpO2 98% BMI 53.61 kg/m? Physical Exam Constitutional: She appears healthy. No distress. Results: recent labs reviewed with the patient. Glucose (mg/dL) Date Value 04/26/2024 84 10/30/2020 74 Potassium (mmol/L) Date Value 04/26/2024 4.0 10/30/2020 4.1 Sodium (mmol/L) Date Value 04/26/2024 140 10/30/2020 142 Chloride (mmol/L) Date Value 04/26/2024 103 10/30/2020 104 CO2 (mmol/L) Date Value 04/26/2024 27 10/30/2020 24 Creatinine (mg/dL) Date Value 04/26/2024 0.75 10/30/2020 0.80 BUN (mg/dL) Date Value 04/26/2024 15 10/30/2020 13 Anion Gap (mmol/L) Date Value 04/26/2024 10 10/30/2020 14 Calcium (mg/dL) Date Value 10/30/2020 9.7 Calcium, Total (mg/dL) Date Value 04/26/2024 9.6 Latest Ref Rng AND Units 04/26/2024 CMP Sodium 136 - 144 mmol/L 140 Potassium 3.7 - 5.1 mmol/L 4.0 Chloride 98 - 107 mmol/L 103 CO2 22 - 30 mmol/L 27 Glucose 74 - 99 mg/dL 84 BUN 7 - 21 mg/dL 15 Creatinine 0.58 - 0.96 mg/dL 0.75 EGFR >=60 mL/min/1.73m? 97 Calcium 8.5 - 10.2 mg/dL 9.6 Cholesterol, Total (mg/dL) Date Value 11/07/2023 181 03/09/2019 173 Total Cholesterol, Nonfasting (mg/dL) Date Value 10/30/2020 179 HDL Cholesterol (mg/dL) Date Value 11/07/2023 53 03/09/2019 66 HDL Cholesterol, Nonfasting (mg/dL) Date Value 10/30/2020 60 LDL Cholesterol (mg/dL) Date Value 11/07/2023 97 03/09/2019 84 LDL Cholesterol, Nonfasting (mg/dL) Date Value 11/01/2022 89 10/30/2020 89 Triglyceride (mg/dL) Date Value 11/07/2023 155 03/09/2019 113 Triglycerides, Nonfasting (mg/dL) Date Value 10/30/2020 151 Latest Ref Rng AND Units 11/07/2023 CBC WBC 3.70 - 11.00 k/uL 6.23 RBC 3.90 - 5.20 m/uL 4.89 Hemoglobin 11.5 - 15.5 g/dL 12.9 Hematocrit 36.0 - 46.0 % 40.0 MCV 80.0 - 100.0 fL 81.8 MCH 26.0 - 34.0 pg 26.4 MCHC 30.5 - 36.0 g/dL 32.3 RDW-CV 11.5 - 15.0 % 14.0 Platelet Count 150 - 400 k/uL 357 MPV 9.0 - 12.7 fL 9.6 Vitamin D 25 Hydroxy Date Value Ref Range Status 11/07/2023 26.8 (L) 31.0 - 80.0 ng/mL Final Comment: Classification of 25 [place] Vitamin D status: Deficiency/Insufficiency: < or = 30 ng/ml. Sufficiency/Optimal Levels: 31-80 ng/mL Toxicity: > 100 ng/mL. Test performed by chemiluminescent immunoassay. TSH Date Value 11/07/2023 2.290 mIU/L 11/01/2022 1.850 mIU/L 10/08/2019 1.670 uU/mL 11/10/2018 2.560 uU/mL Hemoglobin A1C (%) Date Value 11/07/2023 5.3 11/01/2022 5.0 09/30/2021 5.0 10/30/2020 5.0 03/04/2018 4.7 Insulin Date Value Ref Range Status 11/07/2023 33.4 (H) 3.0 - 25.0 mU/L Final Anti-Obesity Medications >Saxenda/Wegovy/Ozempic: Cost. Ins coverage? Family or personal History of MEN2 or Medullary thyroid cancer: no >Metformin: eGFR > 30. No contraindications or medication interactions. Assessment/Plan: Cinthya Bone is a 53 year old yo with Class III obesity who presented today for follow up for supervised weight loss to treat and prevent related co-morbidities. 1. Gastroesophageal reflux disease without esophagitis - ICD9: 530.81, ICD10: K21.9 (primary diagnosis) -Omeprazole daily - benefits of weight loss - Whole food balanced protein low-carb nutrition 2. DRE on CPAP - ICD9: 327.23, ICD10: G47.33 - DULAGLUTIDE 0.75 MG/0.5 ML SUBCUTANEOUS PEN INJECTOR - benefits of weight loss - Whole food balanced protein low-carb nutrition 3. Moderate persistent asthma without complication - ICD9: 493.90, ICD10: J45.40 -Treated with Flonase, Singulair, loratadine, albuterol nebulizer and inhaler, Dulera inhaler 4. Hyperinsulinemia - ICD9: 251.1, ICD10: E16.1 - DULAGLUTIDE 0.75 MG/0.5 ML SUBCUTANEOUS PEN INJECTOR 5. Fatty liver - ICD9: 571.8, ICD10: K76.0 - benefits of weight loss - Whole food balanced protein low-carb nutrition 6. Arthritis of knee - ICD9: 716.96, ICD10: M17.10 - benefits of weight loss - Whole food balanced protein low-carb nutrition 7. Class 3 severe obesity with serious comorbidity and body mass index (BMI) of 50.0 to 59.9 in adult, unspecified obesity type (HCC) - ICD9: 278.01, V85.43, ICD10: E66.813, E66.01, Z68.43 Weight decreased Consult to BMI - considering if unsuccessful at weight loss - Semaglutide - Not covered by insurance - METFORMIN ER 500 MG TABLET,EXTENDED RELEASE 24 HR. - 1 gm at dinner - DULAGLUTIDE 0.75 MG/0.5 ML SUBCUTANEOUS PEN INJECTOR -- We discussed several strategies to track food intake and increase mindfulness around eating will decrease calorie intake. She was counseled on the following: - Reviewed whole food balanced protein, controlled carbohydrate nutrition plan. - Given protein, whole food and high protein nutrition lists. -- Encouraged the patient to improve her physical activity as able. An overall goal of 150-200 minutes per week of exercise has been effective in weight loss and maintenance. -- Reviewed that monitoring weight daily and food intake can have a positive impact on overall weight loss and maintenance of weight loss. Activity tracking can be used to stay on target for exercise however should not be used to reward oneself She understands that there can be limitations of pharmacotherapy due to contraindications, side effects and cost. Patient was told to contact her insurance company to see what AOMs and supervised behavioral medical appointments are currently covered. Patient understands she will have more success when following a healthy lifestyle. We reviewed continued use of online tracking of daily weights, food journal and if desired physical activity. We reviewed that during management she is to report any concerning side effects of any pharmacotherapy she is placed on. She understands that she will need routine follow up in the office. Prior to any virtual visits in the future she will need to check her Blood pressure, weight, and pulse. Prescription instructions reviewed with patient as applicable. Potential red flag symptoms discussed with the patient. Reviewed appropriate action plan to take if red flag symptoms occur. Patient agreeable to treatment plan. Follow up in 6 weeks Jennifer Ratliff CNP Advanced Education from the [employer] Medical Decision Making: Problems: Moderate: 2+ stable chronic illnesses and 1+ chronic illnesses with change Risk: Moderate: Drug management and Moderate risk from testing/treatment Medical Decision Making Level: 4 - Moderate CNOV Observed: 06/06/2024 11:30 AM Status: COMPLETED Source: [facility] Office Visit (OBGYWM) CINTHYA BONE ([id number]) 1970 F NFR Date Time Provider Department 06/06/24 11:30 AM JENNIFER RATLIFF During your visit today, we recorded the following information about you: Pulse Blood pressure Weight 72/minute 139/83 140.2 kg Jennifer Ratliff APRN.CNP 06/06/2024 1:01 PM Signed Some documentation from previous visit of 04/26/2024 was copied and pasted, documentation has been reviewed and edited as necessary for today's visit. Patient Summary: Jocelyn is a 53 year old Female who presents for follow-up evaluation of obesity/weight management to treat and prevent related co-morbidities. In our previous visits we have discussed lifestyle intervention including a nutrition recommendations and physical activity optimization. Her last office visit was 6 weeks ago. Assessment/plan from last visit: - Bupropion 300 XL for NADIRA and depression per PCP - Metformin ER 500 mg - 1 gm at dinner - [facility] - needed new sleep study for prior auth which has been done - denied - Sleep study done at [facility] - DRE recommend CPAP. Order signed. Consult to BMI - considering if unsuccessful at weight loss Interval History PT specifies the following items as new or significant updates since the last appointment: Was sick and had bad cough for 2 weeks - antibiotics and prednisone - Going through divorce - seeing counselor. Weight loss since last vist:-2 lbs. Date: Weight: BMI: Medications: 06/06/2024 309 lb 53.61 04/26/2024 311 lb 53.95 Trulicity 12/21/2023 301 lb 52.22 denied 11/01/2023 300 lb 52.04 Metformin ER 500 mg 5% weight loss = 0 lbs, 10% weight loss = 0 lbs Anti-obesity medications: Metformin ER Benefit:slight increased fullness Adverse effects: none Weight promoting medications: Other Cymbalta Inhaled steroid Previous Diet (initial appointment): Awake - 0600 B - 08 coffee with vanilla FF 1 tsp creamer S - none L - 11-12 lunch meat sandwich on wheat with orange or grapes and lemonade or OJ S - none D - 4 pm protein, sometimes breaded and sometimes with gravy/potato or rice/salad or vegetable water or Sprite S - 6 pm fruit or veg in [place] or cookie or chips Fluids: coffee with vanilla FF 1 tsp creamer, lemonade, OJ, regular pop 1 per day, regular Gatorade, regular Body [place] and water Bedtime - 9 pm Quality of diet: 24hr recall suggests unhealthy diet. Characterization of diet:Structured, unhealthy snacking, evening snacking, and increased consumption of sugar sweetened beverages. 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 S - 7 pm SmartPop and banana Fluids - water, powerade zero - 8 oz over a day, occasional OJ Current Barriers: emotional eating, food cravings, lack of motivation, and reduced physical activity Exercise:stable Regular exercise: walking around block, up and down steps Strength/resistance exercise:yes Barriers to regular exercise? yes left knee pain (seeing Dr. Maher) Work-related activity:Sedentary. Gym Membership: no Activity Tracker: yes, but not currently using average steps per day ? Stress: stable Financial and Personal Sleep:stable 6-7 hours - tosses and turns because of leg pain. DRE YES Sleep study repeated at [facility] ; CPAP Ordered Estimated Creatinine Clearance: 122 mL/min (based on SCr of 0.75 mg/dL). PAST MEDICAL HISTORY Diagnosis Date Allergic rhinitis, cause unspecified 09/10/2008 Arthritis Arthritis of knee 10/30/2020 Asthma Benign neoplasm of left breast 2019 COVID-19 virus infection 10/14/2021 10/14/2021 Environmental allergies Never formally tested. Sneezes, itches around cats. Excessive or frequent menstruation Heavy periods Fatty liver 01/04/2022 Noted on US 12/2021 Gastroesophageal reflux disease without esophagitis 09/10/2008 Hemorrhage of gastrointestinal tract, unspecified 05/10/2014 Irregular menstrual cycle Irregular periods Liver cyst 01/08/2022 MRI: 12/2021 Mild persistent asthma without complication (HCC) 12/11/2008 Obesity, Class III, BMI >= 40 (morbid obesity) E66.01 12/03/2016 Pneumonia 2008 Required intubation Restless leg syndrome 10/30/2020 Shortness of breath 2007 Was on a ventolator with pneumonia Situational depression 09/28/2022 Tonsil asymmetry 03/04/2018 Lt at 2+ Rt normal. chronic Well adult exam 09/01/2018 Done 10/30/2020 Current Outpatient Medications Medication Sig Dispense Refill fluticasone (FLONASE ALLERGY RELIEF) 50 mcg/actuation nasal spray Use 1 [place] in each nostril once daily. 11.1 mL 0 rOPINIRole (REQUIP) 0.5 mg tablet Take 1 tablet by mouth daily at bedtime. Take with 1mg tab for total of 1.5mg. 90 tablet 1 rOPINIRole (REQUIP) 1 mg tablet Take 1 tablet by mouth daily at bedtime. 90 tablet 1 DULoxetine (CYMBALTA) 20 mg capsule Take 1 capsule by mouth once daily. 30 capsule 0 venlafaxine ER (EFFEXOR XR) 37.5 mg 24 hr capsule Take 1 capsule by mouth once daily. 60 capsule 0 dulaglutide (TRULICITY) 0.75 mg/0.5 mL pen injector Inject 0.75 mg subcutaneously one time a week for 28 days. (Patient not taking: Reported on 05/19/2024) 2 mL 0 omeprazole (PRILOSEC) 20 mg capsule TAKE TWO CAPSULES BY MOUTH ONCE DAILY BEFORE BREAKFAST 180 capsule 1 cyclobenzaprine (FLEXERIL) 10 mg tablet Take 1 tablet by mouth three times a day as needed for muscle spasm. 30 tablet 0 buPROPion XL (WELLBUTRIN XL) 300 mg 24 hr tablet Take 1 tablet by mouth once daily. 90 tablet 1 celecoxib (CELEBREX) 200 mg capsule Take 1 capsule by mouth once daily. 30 capsule 5 montelukast (SINGULAIR) 10 mg tablet Take 1 tablet by mouth daily at bedtime. 30 tablet 5 cyanocobalamin (VITAMIN B-12) 1,000 mcg tab Take 1,000 mcg by mouth once daily. cholecalciferol (VITAMIN D-3) 400 unit tab Take 400 Units by mouth once daily. metFORMIN ER (GLUCOPHAGE XR) 500 mg 24 hr tablet Take 2 tablets by mouth daily with dinner. 180 tablet 1 mometasone-formoterol (DULERA) 200-5 mcg/actuation inhaler Inhale 2 Puffs as instructed two times a day. 18 g 11 loratadine (CLARITIN) 10 mg tablet Take 1 tablet by mouth once daily as needed. FOR ALLERGY SYMPTOMS 30 tablet 11 albuterol HFA (PROVENTIL HFA, VENTOLIN HFA) 90 mcg/actuation inhaler INHALE 2 PUFFS BY MOUTH EVERY 6 HOURS NEEDED FOR SHORTNESS OF BREATH AND WHEEZING 1 Each 5 Nebulizer Accessories kit Provide 1 kit. 1 Each 4 albuterol (PROVENTIL) 2.5 mg /3 mL (0.083 %) nebulizer solution Use 3 mL via nebulizer every 4 hours as needed for wheezing/shortness of breath. Use over 5-15minutes. 360 mL 3 fluticasone (FLONASE) 50 mcg/actuation nasal spray Use 1 [place] in each nostril once daily. 1 Each 5 promethazine (PHENERGAN) 25 mg tablet Take 1 tablet by mouth every 6 hours as needed. 12 tablet 0 ProAir RespiClick 90 mcg/actuation breath activated (albuterol sulfate) Inhale 2 Puffs as instructed every 6 hours as needed. 1 Each 5 No current facility-administered medications for this visit. ROS/Fam Hx pertaining to AOMs: GEN: Fatigue:yes PULM: Asthma:yes GI: GERD:yes Fatty liver disease:yes MSK: Joint Pain:yes Occupation: Unemployed and filing for disability Contraception: hysterectomy BP 139/83 Pulse 72 Wt (!) 140.2 kg (309 lb) LMP 12/01/2010 (Exact Date) SpO2 98% BMI 53.61 kg/m? Physical Exam Constitutional: She appears healthy. No distress. Results: recent labs reviewed with the patient. Glucose (mg/dL) Date Value 04/26/2024 84 10/30/2020 74 Potassium (mmol/L) Date Value 04/26/2024 4.0 10/30/2020 4.1 Sodium (mmol/L) Date Value 04/26/2024 140 10/30/2020 142 Chloride (mmol/L) Date Value 04/26/2024 103 10/30/2020 104 CO2 (mmol/L) Date Value 04/26/2024 27 10/30/2020 24 Creatinine (mg/dL) Date Value 04/26/2024 0.75 10/30/2020 0.80 BUN (mg/dL) Date Value 04/26/2024 15 10/30/2020 13 Anion Gap (mmol/L) Date Value 04/26/2024 10 10/30/2020 14 Calcium (mg/dL) Date Value 10/30/2020 9.7 Calcium, Total (mg/dL) Date Value 04/26/2024 9.6 Latest Ref Rng AND Units 04/26/2024 CMP Sodium 136 - 144 mmol/L 140 Potassium 3.7 - 5.1 mmol/L 4.0 Chloride 98 - 107 mmol/L 103 CO2 22 - 30 mmol/L 27 Glucose 74 - 99 mg/dL 84 BUN 7 - 21 mg/dL 15 Creatinine 0.58 - 0.96 mg/dL 0.75 EGFR >=60 mL/min/1.73m? 97 Calcium 8.5 - 10.2 mg/dL 9.6 Cholesterol, Total (mg/dL) Date Value 11/07/2023 181 03/09/2019 173 Total Cholesterol, Nonfasting (mg/dL) Date Value 10/30/2020 179 HDL Cholesterol (mg/dL) Date Value 11/07/2023 53 03/09/2019 66 HDL Cholesterol, Nonfasting (mg/dL) Date Value 10/30/2020 60 LDL Cholesterol (mg/dL) Date Value 11/07/2023 97 03/09/2019 84 LDL Cholesterol, Nonfasting (mg/dL) Date Value 11/01/2022 89 10/30/2020 89 Triglyceride (mg/dL) Date Value 11/07/2023 155 03/09/2019 113 Triglycerides, Nonfasting (mg/dL) Date Value 10/30/2020 151 Latest Ref Rng AND Units 11/07/2023 CBC WBC 3.70 - 11.00 k/uL 6.23 RBC 3.90 - 5.20 m/uL 4.89 Hemoglobin 11.5 - 15.5 g/dL 12.9 Hematocrit 36.0 - 46.0 % 40.0 MCV 80.0 - 100.0 fL 81.8 MCH 26.0 - 34.0 pg 26.4 MCHC 30.5 - 36.0 g/dL 32.3 RDW-CV 11.5 - 15.0 % 14.0 Platelet Count 150 - 400 k/uL 357 MPV 9.0 - 12.7 fL 9.6 Vitamin D 25 Hydroxy Date Value Ref Range Status 11/07/2023 26.8 (L) 31.0 - 80.0 ng/mL Final Comment: Classification of 25 OH Vitamin D status: Deficiency/Insufficiency: < or = 30 ng/ml. Sufficiency/Optimal Levels: 31-80 ng/mL Toxicity: > 100 ng/mL. Test performed by chemiluminescent immunoassay. TSH Date Value 11/07/2023 2.290 mIU/L 11/01/2022 1.850 mIU/L 10/08/2019 1.670 uU/mL 11/10/2018 2.560 uU/mL Hemoglobin A1C (%) Date Value 11/07/2023 5.3 11/01/2022 5.0 09/30/2021 5.0 10/30/2020 5.0 03/04/2018 4.7 Insulin Date Value Ref Range Status 11/07/2023 33.4 (H) 3.0 - 25.0 mU/L Final Anti-Obesity Medications >Saxenda/Wegovy/Ozempic: Cost. Ins coverage? Family or personal History of MEN2 or Medullary thyroid cancer: no >Metformin: eGFR > 30. No contraindications or medication interactions. Assessment/Plan: Cinthya Bone is a 53 year old yo with Class III obesity who presented today for follow up for supervised weight loss to treat and prevent related co-morbidities. 1. Gastroesophageal reflux disease without esophagitis - ICD9: 530.81, ICD10: K21.9 (primary diagnosis) -Omeprazole daily - benefits of weight loss - Whole food balanced protein low-carb nutrition 2. DRE on CPAP - ICD9: 327.23, ICD10: G47.33 - DULAGLUTIDE 0.75 MG/0.5 ML SUBCUTANEOUS PEN INJECTOR - benefits of weight loss - Whole food balanced protein low-carb nutrition 3. Moderate persistent asthma without complication - ICD9: 493.90, ICD10: J45.40 -Treated with Flonase, Singulair, loratadine, albuterol nebulizer and inhaler, Dulera inhaler 4. Hyperinsulinemia - ICD9: 251.1, ICD10: E16.1 - DULAGLUTIDE 0.75 MG/0.5 ML SUBCUTANEOUS PEN INJECTOR 5. Fatty liver - ICD9: 571.8, ICD10: K76.0 - benefits of weight loss - Whole food balanced protein low-carb nutrition 6. Arthritis of knee - ICD9: 716.96, ICD10: M17.10 - benefits of weight loss - Whole food balanced protein low-carb nutrition 7. Class 3 severe obesity with serious comorbidity and body mass index (BMI) of 50.0 to 59.9 in adult, unspecified obesity type (HCC) - ICD9: 278.01, V85.43, ICD10: E66.813, E66.01, Z68.43 Weight decreased Consult to BMI - considering if unsuccessful at weight loss - Semaglutide - Not covered by insurance - METFORMIN ER 500 MG TABLET,EXTENDED RELEASE 24 HR. - 1 gm at dinner - DULAGLUTIDE 0.75 MG/0.5 ML SUBCUTANEOUS PEN INJECTOR -- We discussed several strategies to track food intake and increase mindfulness around eating will decrease calorie intake. She was counseled on the following: - Reviewed whole food balanced protein, controlled carbohydrate nutrition plan. - Given protein, whole food and high protein nutrition lists. -- Encouraged the patient to improve her physical activity as able. An overall goal of 150-200 minutes per week of exercise has been effective in weight loss and maintenance. -- Reviewed that monitoring weight daily and food intake can have a positive impact on overall weight loss and maintenance of weight loss. Activity tracking can be used to stay on target for exercise however should not be used to reward oneself She understands that there can be limitations of pharmacotherapy due to contraindications, side effects and cost. Patient was told to contact her insurance company to see what AOMs and supervised behavioral medical appointments are currently covered. Patient understands she will have more success when following a healthy lifestyle. We reviewed continued use of online tracking of daily weights, food journal and if desired physical activity. We reviewed that during management she is to report any concerning side effects of any pharmacotherapy she is placed on. She understands that she will need routine follow up in the office. Prior to any virtual visits in the future she will need to check her Blood pressure, weight, and pulse. Prescription instructions reviewed with patient as applicable. Potential red flag symptoms discussed with the patient. Reviewed appropriate action plan to take if red flag symptoms occur. Patient agreeable to treatment plan. Follow up in 6 weeks Jennifer Ratliff CNP Advanced Education from the [employer] Medical Decision Making: Problems: Moderate: 2+ stable chronic illnesses and 1+ chronic illnesses with change Risk: Moderate: Drug management and Moderate risk from testing/treatment Medical Decision Making Level: 4 - Moderate Jennifer Ratliff, [email or web address] 06/06/2024 12:24 PM Addendum B - 08 - 30 gm protein shake and 2 HB eggs S - none L - 12-1 pm Salad/HB eggs/tomato/onion/low calorie [place] OR egg salad sandwich on wheat bread S - apple D - 4-5 pm chicken breast and corn/rice and Salad and fruit - watermelon. S - 7 pm SmartPop and banana Fluids - water, powerade zero - 8 oz over a day, occasional OJ - Whole food balanced protein, controlled carbohydrate nutrition plan - 30 g of protein 3 times a day and up to 30 g of carbs at lunch and dinner only. Breakfast - 30 gm protein with limit of 2 gm carbohydrates. Options include: Premier Protein or generic 30 gm protein 1 gm sugar or 5 eggs or 2-3 eggs and some unbreaded meat and/or cheese. No fruit, vegetables, bread, grain, yogurt, Smoothies, etc. Lunch and dinner - 30 gm protein is the goal with less than 30 gm carbohydrates Snacks - all protein or more protein than carbs Protein - no carbs Egg 1 large - 6g Egg white 1 large 3.6g 3 oz is approximately the size of a deck of cards and equals 21 g protein so 4 oz is 28 gm protein Beef, Chicken, Gail, Pork, Gamble 1 oz 7g Fish, Tuna Fish 1 oz 7g (Starkist tuna packet 2.6 oz 17 gm protein) Seafood (Crabmeat, Shrimp, Lobster) 1 oz 6g Protein shakes (read labels) Premier Protein or generic [employer] Equate, [facility] High Performance- 30g protein AND 1g carb - meal replacement Premier Protein powder or generic- 30 gm protein, 1g carb Premier Protein plant protein powder - 25 gm protein, 0 sugar/2 carb Vanilla and chocolate (not a meal replacement) Fairlife 30 gram protein - 30g protein AND 3g carb BOOST Glucose Control Max 30g Protein Nutritional Drink - 30g protein AND 1 carb - meal replacement Slimfast High Protein - 20g protein AND 1g carb Ensure Max Protein Nutrition Shake 30g protein AND 2 carb Protein AND carbs Beef/Gail Jerky 1 oz dried 10-15g protein - check carb count, can be high if sugar added Slim Nikolay - 6 gm protein and 4 net carb Great Value original turkey sausage sticks - 7 gm protein and 2 gm carb Librado (at [employer]) Original smoked sausage sticks - 8 gm protein and 0 carb Imitation Crab Meat 1 oz - 2g protein AND 4g carb Milk, skim 2% or 1% 8 oz - 8g protein AND 12g carb Fairlife 2% milk 8 oz -13 g protein AND 6g carb Mozambican yogurt Full Fat Mozambican Yogurt 1 cup - 20.4g protein AND 9.1g carb 2% Mozambican Yogurt 1 cup - 22.7g protein AND 9.1g carb 0% (fat-free) Moz[place]ican Yogurt - 1 cup 24g protein AND 9.3g carb Aldi Protein Mozambican yogurt single svg - 13/g15g protein AND 7g carb Chobani Zero Sugar single svg: - 12g protein AND 5g carb Chobani drinkable 15g, 20g and 30g protein AND 18 carb Dannon Mozambican Light + Fit 1 single svg - 12g protein AND 9g carb Oikos Pro single svg - 20g protein AND 8g carb Oikos Triple Zero Moz[place] Nonfat Yogurt 1 single svg - 15g protein AND 7g carb Oikos Pro drinkable yogurt 1 single svg - 23 g protein AND 8 g carb :ratio, KETO Friendly Dairy Snack 1 single svg - 15g protein AND 2g carb :ratio Protein 1 single svg - 25g protein AND 8g carb Two Good Lowfat [place] Yogurt, [place], Lower Sugar - 12g protein AND 2g carb Yoplait Protein 1 single svg 15gm protein AND 5gm carb Dairy Free - [place] unsweetened Moz[place] almond/soy 15 gm protein AND 3 gm carb Dairy Free - True Goodness by Nestor coconut-based yogurt alternative 1 gm protein 1 gm net carb 180 uma Cheese each oz Brie 5.9g protein AND 0.1g carb Cheddar 7g protein AND 0.4g carb Addison 6.7g protein AND 0.7g carb Cream Cheese 1.7g protein AND 1.2g carb Feta 4g protein AND 1.2g carb Mozzarella 6.3g protein AND 0.6g carb Parmesan 10g protein AND 0.9g carb Eritrean 7.6g protein AND 1.5g carb Cottage Cheese 1/2 c Breakstone 2% 13g protein 7g carb Lorrie 2% 13g protein 5 g carb Good Culture 2% 14g protein 3g carb Delgado?s Low Fat 12g protein AND 4g carb Legumes Lentils ? cup 9g protein AND 20g carb Cortes beans ? cup 7g protein AND 20g carb Kidney, Black, [place], Cannellini beans ? cup 8g protein AND 20g carb Soybeans 1/2 c 14g complete protein AND 8.5g carb [place] milk, unsweetened 8 oz 1g protein AND 2g carb Soy milk 8 oz 3.5g protein AND 1.6g carb Tofu 1/2 cup 10g protein AND 2.3g carb Peanut butter, natural 2 Tbsp 7-8g protein AND 4g net carbs, 190 calories PB2 powder 2 Tbsp 6g protein AND 5g carb Nuts and Seeds per oz Almonds - 5.9g protein AND 6.1g carb [place] Nuts - 4.0g protein AND 3.4g carb Cashews - 5.1g protein AND 9.2g carb Hazelnuts - 4.2g protein AND 4.7g carb Hemp seeds/hearts 3 T/30 gms - 9.5 gm complete protein and 2.5 gm carb Peanuts - 7g protein AND 4.6g carb Pecans - 2.6g protein AND 3.9g carb Pistachios - 5.8g protein AND 7.8g carb Pumpkin Seeds - 6.9g protein AND 5g carb [place] Seeds - 5.8g protein AND 5.6g carb Walnuts - 4.3g protein AND 3.8g carb Edamame Beans (soybean) snack 1 pack 11 gm complete protein 2 carb 5 (FIVE) gram carb vegetable options 1 cup raw OR ? cup cooked: Asparagus Burleson sprouts Beets Broccoli Brussel sprouts Cabbage Carrots Cauliflower Celery [place] Eggplant Green beans Lettuce Peppers Snap peas Spaghetti squash Spinach Tomato Turnips Zucchini 15 gram carb vegetable options ? cup cooked corn or hominy ? corn on the cob, large (5 oz) ? cup cooked green peas 4.3 gm complete protein ? cup cooked cortes beans 1 small potato or sweet potato ? cup cooked potato, plain ? cup cooked sweet potato, plain 1 cup winter squash (pumpkin, acorn, butternut) 1 cup marinara or pasta sauce - check label ? cup tomato juice ? cup tomato puree Beans, Seeds, Nuts ? cup cooked beans (kidney, bryant, red, green, etc.) ? cup cooked lentils ? cup baked beans 4 tablespoons nut butter <15 gram carb fruit options Berries have the lowest sugar content 1/2 medium apple - 12.5 carbs 1/2 medium avocado - 6.5 gm carbs 1/2 medium banana - 15 carbs 1/2 cup blueberries - 11 carbs - may actually help you lose weight 1/2 cup fresh cherries -11 carbs 1 medium Nicolette -9 carbs 1/2 cup fresh cranberries - 6.5 carbs 1/2 c grapes - 15 carbs 1/2 medium grapefruit - 10.5 carbs 1/2 cup diced honeydew melon - 8 carbs 1 medium kiwi without skin - 11 carbs 1/2 cup sliced lynda -14 carbs 1 medium nectarine - 15 carbs 1 medium orange -15.5 carbs 1 medium peach -14.5 carbs 1/2 cup fresh pineapple -11 carbs 1 medium plum -7.5 carbs 1 prune - 6 carbs 1/4 c raisins - 31.25 carbs 1/2 cup raspberries -7.5 carbs 1/2 c strawberries - 12.7 carbs 1 medium tangerine -12 carbs 1/2 cup diced watermelon - 6 carbs Grains Brown rice 1/2 c 5.5g protein 24 carb White long-grain rice 1/2 c 2g protein 22.5 carb Quinoa 1/2 c 4 gm complete protein 25 carb Oatmeal, old fashioned 1/2 c 5g protein 27g carb High Protein Snack Ideas 1. Jerky 2. [place] mix without dried fruit 3. Gail roll-ups 4. Moz[place] yogurt 5. Veggies and yogurt dip 6. Tuna 7. Hard-boiled eggs 8. Peanut butter with celery 9. Cheese slices/ Cheese Stick 10. Handful of almonds, peanuts or walnuts 11. Cottage Cheese 12. Beef sticks 13. Protein bars 14. Canned [place] 15. Pumpkin seeds 16. Nut butter 17. Protein shakes 18. Avocado and chicken salad 19. Egg muffins 20. Leftover protein or lunch meat 21. 1/2 c blended cottage cheese or [place] yogurt with dry ranch/Mrs. Dash/herb seasoning mix to make protein dip 22. 1/2 c blended cottage cheese with 1 Tbsp sugar-free dry cheesecake pudding mix 12g protein 10 carb 23. Pudding - 1 30 gm protein shake with 1/2 pkg sugar-free pudding 4 svgs - 7.8 gm protein, 5 carb each svg 24. SF Sunkist or Root Beer with 1-2 Tablespoons heavy whipping cream 25. 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 - metFORMIN ER (GLUCOPHAGE XR) 500 mg 24 hr tablet Take 2 tablets by mouth daily with dinner. - fluticasone (FLONASE ALLERGY RELIEF) 50 mcg/actuation nasal spray Use 1 [place] in each nostril once daily. - rOPINIRole (REQUIP) 0.5 mg tablet Take 1 tablet by mouth daily at bedtime. Take with 1mg tab for total of 1.5mg. - rOPINIRole (REQUIP) 1 mg tablet Take 1 tablet by mouth daily at bedtime. - DULoxetine (CYMBALTA) 20 mg capsule Take 1 capsule by mouth once daily. - venlafaxine ER (EFFEXOR XR) 37.5 mg 24 hr capsule Take 1 capsule by mouth once daily. - omeprazole (PRILOSEC) 20 mg capsule TAKE TWO CAPSULES BY MOUTH ONCE DAILY BEFORE BREAKFAST - cyclobenzaprine (FLEXERIL) 10 mg tablet Take 1 tablet by mouth three times a day as needed for muscle spasm. - buPROPion XL (WELLBUTRIN XL) 300 mg 24 hr tablet Take 1 tablet by mouth once daily. - celecoxib (CELEBREX) 200 mg capsule Take 1 capsule by mouth once daily. - montelukast (SINGULAIR) 10 mg tablet Take 1 tablet by mouth daily at bedtime. - cyanocobalamin (VITAMIN B-12) 1,000 mcg tab Take 1,000 mcg by mouth once daily. - cholecalciferol (VITAMIN D-3) 400 unit tab Take 400 Units by mouth once daily. - mometasone-formoterol (DULERA) 200-5 mcg/actuation inhaler Inhale 2 Puffs as instructed two times a day. - loratadine (CLARITIN) 10 mg tablet Take 1 tablet by mouth once daily as needed. FOR ALLERGY SYMPTOMS - albuterol HFA (PROVENTIL HFA, VENTOLIN HFA) 90 mcg/actuation inhaler INHALE 2 PUFFS BY MOUTH EVERY 6 HOURS NEEDED FOR SHORTNESS OF BREATH AND WHEEZING - Nebulizer Accessories kit Provide 1 kit. - albuterol (PROVENTIL) 2.5 mg /3 mL (0.083 %) nebulizer solution Use 3 mL via nebulizer every 4 hours as needed for wheezing/shortness of breath. Use over 5-15minutes. - fluticasone (FLONASE) 50 mcg/actuation nasal spray Use 1 [place] in each nostril once daily. - promethazine (PHENERGAN) 25 mg tablet Take 1 tablet by mouth every 6 hours as needed. - ProAir RespiClick 90 mcg/actuation breath activated (albuterol sulfate) Inhale 2 Puffs as instructed every 6 hours as needed. Problem List As Of Date 06/06/2024 Noted Resolved Shortness of breath [R06.02] 01/13/2011 Pneumonia, organism unspecified [J18.9] 07/15/2006 01/13/2011 Acute respiratory failure [J96.00] 07/15/2006 01/13/2011 ACUTE URI NOS [J06.9] 08/07/2007 09/10/2008 Gastroesophageal reflux disease without esophag*09/10/2008 Allergic rhinitis [J30.9] 09/10/2008 Moderate persistent asthma without complication*12/11/2008 Environmental allergies [Z91.09] Obesity, Class III, BMI >= 40 (morbid obesity) *12/03/2016 Irritable mood [R45.4] 03/04/2018 Post menopausal syndrome [N95.1] 03/04/2018 Tonsil asymmetry [J35.8] 03/04/2018 Encounter for screening for diabetes mellitus [*03/04/2018 Well adult exam [Z00.00] 09/01/2018 Medication management [Z79.899] 09/01/2018 Arthritis of knee [M17.10] 10/30/2020 Restless leg syndrome [G25.81] 10/30/2020 COVID-19 virus infection [U07.1] 10/14/2021 Fatty liver [K76.0] 01/04/2022 Liver cyst [K76.89] 01/08/2022 Situational depression [F43.21] 09/28/2022 DRE (obstructive sleep apnea) [G47.33] 11/01/2023 Class 3 severe obesity with serious comorbidity*12/21/2023 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 S - 7 pm SmartPop and banana Fluids - water, powerade zero - 8 oz over a day, occasional OJ - Whole food balanced protein, controlled carbohydrate nutrition plan - 30 g of protein 3 times a day and up to 30 g of carbs at lunch and dinner only. Breakfast - 30 gm protein with limit of 2 gm carbohydrates. Options include: Premier Protein or generic 30 gm protein 1 gm sugar or 5 eggs or 2-3 eggs and some unbreaded meat and/or cheese. No fruit, vegetables, bread, grain, yogurt, Smoothies, etc. Lunch and dinner - 30 gm protein is the goal with less than 30 gm carbohydrates Snacks - all protein or more protein than carbs Protein - no carbs Egg 1 large - 6g Egg white 1 large 3.6g 3 oz is approximately the size of a deck of cards and equals 21 g protein so 4 oz is 28 gm protein Beef, Chicken, Gail, Pork, Gamble 1 oz 7g Fish, Tuna Fish 1 oz 7g (Starkist tuna packet 2.6 oz 17 gm protein) Seafood (Crabmeat, Shrimp, Lobster) 1 oz 6g Protein shakes (read labels) Premier Protein or generic [employer] Equate, [employer] High Performance- 30g protein AND 1g carb - meal replacement Premier Protein powder or generic- 30 gm protein, 1g carb Premier Protein plant protein powder - 25 gm protein, 0 sugar/2 carb Vanilla and chocolate (not a meal replacement) Fairlife 30 gram protein - 30g protein AND 3g carb BOOST Glucose Control Max 30g Protein Nutritional Drink - 30g protein AND 1 carb - meal replacement Slimfast High Protein - 20g protein AND 1g carb Ensure Max Protein Nutrition Shake 30g protein AND 2 carb Protein AND carbs Beef/Gail Jerky 1 oz dried 10-15g protein - check carb count, can be high if sugar added Slim Nikolay - 6 gm protein and 4 net carb Great Value original turkey sausage sticks - 7 gm protein and 2 gm carb Librado (at [facility]) Original smoked sausage sticks - 8 gm protein and 0 carb Imitation Crab Meat 1 oz - 2g protein AND 4g carb Milk, skim 2% or 1% 8 oz - 8g protein AND 12g carb Fairlife 2% milk 8 oz -13 g protein AND 6g carb Mozambican yogurt Full Fat [place] Yogurt 1 cup - 20.4g protein AND 9.1g carb 2% [place] Yogurt 1 cup - 22.7g protein AND 9.1g carb 0% (fat-free) [place] Yogurt - 1 cup 24g protein AND 9.3g carb Aldi Protein [place] yogurt single svg - 13/g15g protein AND 7g carb Chobani Zero Sugar single svg: - 12g protein AND 5g carb Chobani drinkable 15g, 20g and 30g protein AND 18 carb Dannon Moz[place] Light + Fit 1 single svg - 12g protein AND 9g carb Oikos Pro single svg - 20g protein AND 8g carb Oikos Triple Zero [place] Nonfat Yogurt 1 single svg - 15g protein AND 7g carb Oikos Pro drinkable yogurt 1 single svg - 23 g protein AND 8 g carb :ratio, KETO Friendly Dairy Snack 1 single svg - 15g protein AND 2g carb :ratio Protein 1 single svg - 25g protein AND 8g carb Two Good Lowfat [place] Yogurt, [place], Lower Sugar - 12g protein AND 2g carb Yoplait Protein 1 single svg 15gm protein AND 5gm carb Dairy Free - [place] unsweetened [place] almond/soy 15 gm protein AND 3 gm carb Dairy Free - True Goodness by Nestor coconut-based yogurt alternative 1 gm protein 1 gm net carb 180 uma Cheese each oz Brie 5.9g protein AND 0.1g carb Cheddar 7g protein AND 0.4g carb Addison 6.7g protein AND 0.7g carb Cream Cheese 1.7g protein AND 1.2g carb Feta 4g protein AND 1.2g carb Mozzarella 6.3g protein AND 0.6g carb Parmesan 10g protein AND 0.9g carb Eritrean 7.6g protein AND 1.5g carb Cottage Cheese 1/2 c Breakstone 2% 13g protein 7g carb Lorrie 2% 13g protein 5 g carb Good Culture 2% 14g protein 3g carb Delgado?s Low Fat 12g protein AND 4g carb Legumes Lentils ? cup 9g protein AND 20g carb Cort[place] beans ? cup 7g protein AND 20g carb Kidney, Black, [place], Cannellini beans ? cup 8g protein AND 20g carb Soybeans 1/2 c 14g complete protein AND 8.5g carb [place] milk, unsweetened 8 oz 1g protein AND 2g carb Soy milk 8 oz 3.5g protein AND 1.6g carb Tofu 1/2 cup 10g protein AND 2.3g carb Peanut butter, natural 2 Tbsp 7-8g protein AND 4g net carbs, 190 calories PB2 powder 2 Tbsp 6g protein AND 5g carb Nuts and Seeds per oz Almonds - 5.9g protein AND 6.1g carb [place] Nuts - 4.0g protein AND 3.4g carb Cashews - 5.1g protein AND 9.2g carb Hazelnuts - 4.2g protein AND 4.7g carb Hemp seeds/hearts 3 T/30 gms - 9.5 gm complete protein and 2.5 gm carb Peanuts - 7g protein AND 4.6g carb Pecans - 2.6g protein AND 3.9g carb Pistachios - 5.8g protein AND 7.8g carb Pumpkin Seeds - 6.9g protein AND 5g carb [place] Seeds - 5.8g protein AND 5.6g carb Walnuts - 4.3g protein AND 3.8g carb Edamame Beans (soybean) snack 1 pack 11 gm complete protein 2 carb 5 (FIVE) gram carb vegetable options 1 cup raw OR ? cup cooked: Asparagus Bur[place]on sprouts Beets Broccoli Brussel sprouts Cabbage Carrots Cauliflower Celery [place] Eggplant Green beans Lettuce Peppers Snap peas Spaghetti squash Spinach Tomato Turnips Zucchini 15 gram carb vegetable options ? cup cooked corn or hominy ? corn on the cob, large (5 oz) ? cup cooked green peas 4.3 gm complete protein ? cup cooked cortes beans 1 small potato or sweet potato ? cup cooked potato, plain ? cup cooked sweet potato, plain 1 cup winter squash (pumpkin, acorn, butternut) 1 cup marinara or pasta sauce - check label ? cup tomato juice ? cup tomato puree Beans, Seeds, Nuts ? cup cooked beans (kidney, bryant, red, green, etc.) ? cup cooked lentils ? cup baked beans 4 tablespoons nut butter <15 gram carb fruit options Berries have the lowest sugar content 1/2 medium apple - 12.5 carbs 1/2 medium avocado - 6.5 gm carbs 1/2 medium banana - 15 carbs 1/2 cup blueberries - 11 carbs - may actually help you lose weight 1/2 cup fresh cherries -11 carbs 1 medium Nicolette -9 carbs 1/2 cup fresh cranberries - 6.5 carbs 1/2 c grapes - 15 carbs 1/2 medium grapefruit - 10.5 carbs 1/2 cup diced honeydew melon - 8 carbs 1 medium kiwi without skin - 11 carbs 1/2 cup sliced lynda -14 carbs 1 medium nectarine - 15 carbs 1 medium orange -15.5 carbs 1 medium peach -14.5 carbs 1/2 cup fresh pineapple -11 carbs 1 medium plum -7.5 carbs 1 prune - 6 carbs 1/4 c raisins - 31.25 carbs 1/2 cup raspberries -7.5 carbs 1/2 c strawberries - 12.7 carbs 1 medium tangerine -12 carbs 1/2 cup diced watermelon - 6 carbs Grains Brown rice 1/2 c 5.5g protein 24 carb White long-grain rice 1/2 c 2g protein 22.5 carb Quinoa 1/2 c 4 gm complete protein 25 carb Oatmeal, old fashioned 1/2 c 5g protein 27g carb High Protein Snack Ideas 1. Jerky 2. [place] mix without dried fruit 3. Gail roll-ups 4. Moz[place] yogurt 5. Veggies and yogurt dip 6. Tuna 7. Hard-boiled eggs 8. Peanut butter with celery 9. Cheese slices/ Cheese Stick 10. Handful of almonds, peanuts or walnuts 11. Cottage Cheese 12. Beef sticks 13. Protein bars 14. Canned [place] 15. Pumpkin seeds 16. Nut butter 17. Protein shakes 18. Avocado and chicken salad 19. Egg muffins 20. Leftover protein or lunch meat 21. 1/2 c blended cottage cheese or [place] yogurt with dry ranch/Mrs. Dash/herb seasoning mix to make protein dip 22. 1/2 c blended cottage cheese with 1 Tbsp sugar-free dry cheesecake pudding mix 12g protein 10 carb 23. Pudding - 1 30 gm protein shake with 1/2 pkg sugar-free pudding 4 svgs - 7.8 gm protein, 5 carb each svg 24. SF Sunkist or Root Beer with 1-2 Tablespoons heavy whipping cream 25. Mini frozen dessert bites - layer protein yogurt, skinny syrup and crushed nuts and freeze Prescriptions ordered this encounter Disp Refills Start End DULAGLUTIDE 0.75 MG/0.5 ML SUBCUTANE* 2 mL 0 06/06/2024 07/04/2024 Route: SUBCUTANEOUS Sig: Inject 0.75 mg subcutaneously one time a week for 28 days. METFORMIN ER 500 MG TABLET,EXTENDED * 180 * 1 06/06/2024 12/03/2024 Route: ORAL Sig: Take 2 tablets by mouth daily with dinner. Medications Discontinued During This Encounter Prescriptions - dulaglutide (TRULICITY) 0.75 mg/0.5 mL pen injector (Discontinued) Reported on 05/19/2024 - metFORMIN ER (GLUCOPHAGE XR) 500 mg 24 hr tablet (Discontinued) Take 2 tablets by mouth daily with dinner. Disposition: Return in about 6 weeks (around 07/18/2024) for wt mgt F/up. Follow-up and Disposition History for Encounter Date Provider Department Center 06/06/2024 [id number] RATLIFF Shauna [place] Encounter Status:Closed by JENNIFER RATLIFF on 06/06/24 CNPN Observed: 06/06/2024 12:00 AM Status: COMPLETED Source: [facility] Telephone (OBGYWM) CINTHYA BONE ([id number]) 1970 F NFR Date Time Provider Department 06/06/24 JENNIFER RATLIFF During your visit today, we recorded the following information about you: Javi Diggs MA 06/06/2024 1:29 PM Signed PA submitted for [facility]. Will await response from patients insurance. ROCK Granados Morgan, MA 06/12/2024 2:49 PM Signed Received response that no PA was required and no further PA action was needed. Patient notified. ROCK Granados Jennifer, RN 06/13/2024 8:39 AM Signed Received a call from the Pharmacy. Was the PA submitted to Medicaid or MMO? In our system, Medicaid is listed as her primary coverage. This is incorrect. Updated her pharmacy benefits to reflect MMO as primary. Please resubmit PA. Thank you. MONE Douglas Annalee, LPN 06/15/2024 5:19 PM Addendum Medical mutual is primary. Patient is from her but not legally or . Prior authorization submitted to cover my meds Hanna Yee RN 06/19/2024 3:28 PM Signed Patient states she received a call that Trulicity was denied by insurance. Have you received anything? MONE Arora Tara, RN 06/25/2024 2:51 PM Signed Pt calling stating [employer] [employer] approved Trulicity; however, [facility] has denied it. Pt states she talked to [facility] on Tuesday AND was advised that they need another authorization from MONE Chung Tara, RN 07/05/2024 1:27 PM Signed Pt calls stating that Roberto Villatoro said if we have a denial letter from [facility], they can bypass the primary and do the secondary insurance.Pt is asking if the denial letter can be faxed to Roberto in [place]. Advised Pt that she should contact [facility] and have them fax her the denial letter and then forward to [facility] as we do not have the denial letter. Pt voiced understanding. Fay Bloom RN Allergies As of Date: 06/06/2024 Noted Allergy Reaction CATS 2011 7 - Swelling Comments: rash Date Reviewed: 06/06/2024 Reviewed by: Jennifer Ratliff APRN.COMMERCIAL CRABBER - Fully Assessed Reason for Visit: Insurance Authorization [[id number]] Prescriptions as of 07/05/2024 - venlafaxine ER (EFFEXOR XR) 37.5 mg 24 hr capsule Take 1 capsule by mouth once daily. - dulaglutide (TRULICITY) 0.75 mg/0.5 mL pen injector Inject 0.75 mg subcutaneously one time a week for 28 days. - metFORMIN ER (GLUCOPHAGE XR) 500 mg 24 hr tablet Take 2 tablets by mouth daily with dinner. - fluticasone (FLONASE ALLERGY RELIEF) 50 mcg/actuation nasal spray Use 1 [place] in each nostril once daily. - rOPINIRole (REQUIP) 0.5 mg tablet Take 1 tablet by mouth daily at bedtime. Take with 1mg tab for total of 1.5mg. - rOPINIRole (REQUIP) 1 mg tablet Take 1 tablet by mouth daily at bedtime. - omeprazole (PRILOSEC) 20 mg capsule TAKE TWO CAPSULES BY MOUTH ONCE DAILY BEFORE BREAKFAST - cyclobenzaprine (FLEXERIL) 10 mg tablet Take 1 tablet by mouth three times a day as needed for muscle spasm. - buPROPion XL (WELLBUTRIN XL) 300 mg 24 hr tablet Take 1 tablet by mouth once daily. - celecoxib (CELEBREX) 200 mg capsule Take 1 capsule by mouth once daily. - montelukast (SINGULAIR) 10 mg tablet Take 1 tablet by mouth daily at bedtime. - cyanocobalamin (VITAMIN B-12) 1,000 mcg tab Take 1,000 mcg by mouth once daily. - cholecalciferol (VITAMIN D-3) 400 unit tab Take 400 Units by mouth once daily. - mometasone-formoterol (DULERA) 200-5 mcg/actuation inhaler Inhale 2 Puffs as instructed two times a day. - loratadine (CLARITIN) 10 mg tablet Take 1 tablet by mouth once daily as needed. FOR ALLERGY SYMPTOMS - albuterol HFA (PROVENTIL HFA, VENTOLIN HFA) 90 mcg/actuation inhaler INHALE 2 PUFFS BY MOUTH EVERY 6 HOURS NEEDED FOR SHORTNESS OF BREATH AND WHEEZING - Nebulizer Accessories kit Provide 1 kit. - albuterol (PROVENTIL) 2.5 mg /3 mL (0.083 %) nebulizer solution Use 3 mL via nebulizer every 4 hours as needed for wheezing/shortness of breath. Use over 5-15minutes. - fluticasone (FLONASE) 50 mcg/actuation nasal spray Use 1 [place] in each nostril once daily. - promethazine (PHENERGAN) 25 mg tablet Take 1 tablet by mouth every 6 hours as needed. - ProAir RespiClick 90 mcg/actuation breath activated (albuterol sulfate) Inhale 2 Puffs as instructed every 6 hours as needed. Problem List As Of Date 06/06/2024 Noted Resolved Shortness of breath [R06.02] 01/13/2011 Pneumonia, organism unspecified [J18.9] 07/15/2006 01/13/2011 Acute respiratory failure [J96.00] 07/15/2006 01/13/2011 ACUTE URI NOS [J06.9] 08/07/2007 09/10/2008 Gastroesophageal reflux disease without esophag*09/10/2008 Allergic rhinitis [J30.9] 09/10/2008 Moderate persistent asthma without complication*12/11/2008 Environmental allergies [Z91.09] Obesity, Class III, BMI >= 40 (morbid obesity) *12/03/2016 Irritable mood [R45.4] 03/04/2018 Post menopausal syndrome [N95.1] 03/04/2018 Tonsil asymmetry [J35.8] 03/04/2018 Encounter for screening for diabetes mellitus [*03/04/2018 Well adult exam [Z00.00] 09/01/2018 Medication management [Z79.899] 09/01/2018 Arthritis of knee [M17.10] 10/30/2020 Restless leg syndrome [G25.81] 10/30/2020 COVID-19 virus infection [U07.1] 10/14/2021 Fatty liver [K76.0] 01/04/2022 Liver cyst [K76.89] 01/08/2022 Situational depression [F43.21] 09/28/2022 DRE (obstructive sleep apnea) [G47.33] 11/01/2023 Class 3 severe obesity with serious comorbidity*12/21/2023 Hyperinsulinemia [E16.1] 12/21/2023 Acute right-sided thoracic back pain [M54.6] 04/27/2024 Encounter Status:Closed by JAVI DIGGS on 06/12/24 DAKOTAN Observed: 06/04/2024 12:00 AM Status: COMPLETED Source: [facility] Telephone (OBOrthogemWM) CINTHYA BONE ([id number]) 1970 F NFR Date Time Provider Department 06/04/24 JENNIFER RATLIFF During your visit today, we recorded the following information about you: Elo Barone RN 06/04/2024 3:21 PM Signed Patients sleep study results received from [facility]. Report to provider to review. MONE Junior Amy, CRIMINAL RESEARCHER.[facility] 06/05/2024 1:33 PM Signed Report and signed CPAP orders to Letha Ratliff APRN.COMMERCIAL CRABBER Javi Diggs MA 06/06/2024 10:56 AM Signed Can you file new order for Trulicity so I can initiate PA? Old order is . ROCK Granados [place], [place] 06/06/2024 10:56 AM Signed Addended by: JAVI DIGGS on: 06/06/2024 10:56 AM Modules accepted: Orders Javi Diggs MA 06/06/2024 11:01 AM Signed CPAP Rx sent back to [facility]. Javi Diggs MA Allergies As of Date: 06/04/2024 Noted Allergy Reaction CATS 2011 7 - Swelling Comments: rash Date Reviewed: 05/23/2024 Reviewed by: Nenita Woods APRN.COMMERCIAL CRABBER - Fully Assessed Reason for Visit: Results - Sleep Study [3564] Visit Diagnoses:DRE (obstructive sleep apnea) [G47.33] Hyperinsulinemia [E16.1] Class 3 severe obesity with serious comorbidity and body mass index (BMI) of 50.0 to 59.9 in adult, unspecified obesity type (HCC) [E66.813, E66.01, Z68.43] Prescriptions as of 06/06/2024 - dulaglutide (TRULICITY) 0.75 mg/0.5 mL pen injector Inject 0.75 mg subcutaneously one time a week for 28 days. - metFORMIN ER (GLUCOPHAGE XR) 500 mg 24 hr tablet Take 2 tablets by mouth daily with dinner. - fluticasone (FLONASE ALLERGY RELIEF) 50 mcg/actuation nasal spray Use 1 [place] in each nostril once daily. - rOPINIRole (REQUIP) 0.5 mg tablet Take 1 tablet by mouth daily at bedtime. Take with 1mg tab for total of 1.5mg. - rOPINIRole (REQUIP) 1 mg tablet Take 1 tablet by mouth daily at bedtime. - DULoxetine (CYMBALTA) 20 mg capsule Take 1 capsule by mouth once daily. - venlafaxine ER (EFFEXOR XR) 37.5 mg 24 hr capsule Take 1 capsule by mouth once daily. - omeprazole (PRILOSEC) 20 mg capsule TAKE TWO CAPSULES BY MOUTH ONCE DAILY BEFORE BREAKFAST - cyclobenzaprine (FLEXERIL) 10 mg tablet Take 1 tablet by mouth three times a day as needed for muscle spasm. - buPROPion XL (WELLBUTRIN XL) 300 mg 24 hr tablet Take 1 tablet by mouth once daily. - celecoxib (CELEBREX) 200 mg capsule Take 1 capsule by mouth once daily. - montelukast (SINGULAIR) 10 mg tablet Take 1 tablet by mouth daily at bedtime. - cyanocobalamin (VITAMIN B-12) 1,000 mcg tab Take 1,000 mcg by mouth once daily. - cholecalciferol (VITAMIN D-3) 400 unit tab Take 400 Units by mouth once daily. - mometasone-formoterol (DULERA) 200-5 mcg/actuation inhaler Inhale 2 Puffs as instructed two times a day. - loratadine (CLARITIN) 10 mg tablet Take 1 tablet by mouth once daily as needed. FOR ALLERGY SYMPTOMS - albuterol HFA (PROVENTIL HFA, VENTOLIN HFA) 90 mcg/actuation inhaler INHALE 2 PUFFS BY MOUTH EVERY 6 HOURS NEEDED FOR SHORTNESS OF BREATH AND WHEEZING - Nebulizer Accessories kit Provide 1 kit. - albuterol (PROVENTIL) 2.5 mg /3 mL (0.083 %) nebulizer solution Use 3 mL via nebulizer every 4 hours as needed for wheezing/shortness of breath. Use over 5-15minutes. - fluticasone (FLONASE) 50 mcg/actuation nasal spray Use 1 [place] in each nostril once daily. - promethazine (PHENERGAN) 25 mg tablet Take 1 tablet by mouth every 6 hours as needed. - ProAir RespiClick 90 mcg/actuation breath activated (albuterol sulfate) Inhale 2 Puffs as instructed every 6 hours as needed. Problem List As Of Date 06/04/2024 Noted Resolved Shortness of breath [R06.02] 01/13/2011 Pneumonia, organism unspecified [J18.9] 07/15/2006 01/13/2011 Acute respiratory failure [J96.00] 07/15/2006 01/13/2011 ACUTE URI NOS [J06.9] 08/07/2007 09/10/2008 Gastroesophageal reflux disease without esophag*09/10/2008 Allergic rhinitis [J30.9] 09/10/2008 Moderate persistent asthma without complication*12/11/2008 Environmental allergies [Z91.09] Obesity, Class III, BMI >= 40 (morbid obesity) *12/03/2016 Irritable mood [R45.4] 03/04/2018 Post menopausal syndrome [N95.1] 03/04/2018 Tonsil asymmetry [J35.8] 03/04/2018 Encounter for screening for diabetes mellitus [*03/04/2018 Well adult exam [Z00.00] 09/01/2018 Medication management [Z79.899] 09/01/2018 Arthritis of knee [M17.10] 10/30/2020 Restless leg syndrome [G25.81] 10/30/2020 COVID-19 virus infection [U07.1] 10/14/2021 Fatty liver [K76.0] 01/04/2022 Liver cyst [K76.89] 01/08/2022 Situational depression [F43.21] 09/28/2022 DRE (obstructive sleep apnea) [G47.33] 11/01/2023 Class 3 severe obesity with serious comorbidity*12/21/2023 Hyperinsulinemia [E16.1] 12/21/2023 Acute right-sided thoracic back pain [M54.6] 04/27/2024 Encounter Status:Closed by ELO BARONE on 06/04/24 PROGRESS Observed: 05/23/2024 2:00 PM Status: COMPLETED Source: [facility] HNO ID: [id number] Author: ALEXA MUNGUIA RT(Toy) Service: Radiology Author Type: Technologist Type: Progress Notes Filed: 05/23/2024 13:55 Note Text: Radiology Service Progress Note PATIENT NAME: Cinthya Bone DATE OF SERVICE: May 23, 2024 TIME: 1:49 PM PATIENT IDENTITY VERIFICATION COMPLETED USING TWO (2) IDENTIFIERS: Name and Date of confirmed by patient verbally and Name and Date of confirmed by identification band. FALL SCREENING: Has the patient had 2 falls in the last year or 1 fall with injury or currently using an Ambulatory Assistive Device (Walker, Cane, Wheelchair, Crutches, etc.)? No PATIENT GENDER DATA: Assigned female at . status: : No status: NO. PATIENT RELEVANT IMPLANT DATA REVIEWED: Not Applicable PATIENT PRESENTS WITH AN IMPLANTABLE OR ATTACHED MATERIALS MANAGEMENT SUPERVISOR: No RADIOLOGY DEPARTMENT: General X-ray: Exam(s) Completed: Chest X-Ray PERIPHERAL IV DATA: Not applicable SIGNED BY: RT Srinivasan(R) May 23, 2024 1:49 PM XR CHEST 2V FRONTAL/LAT Observed: 2024 1:54 PM Status: F Source: [facility] * * *Final Report* * * DATE OF EXAM: May 23 2024 1:54PM [id number] [id number] - XR CHEST 2V FRONTAL/LAT / PROCEDURE REASON: multiple diagnoses * * * * Physician Interpretation * * * * EXAMINATION: CHEST RADIOGRAPH (2 VIEW FRONTAL and LATERAL) CLINICAL HISTORY: Moderate persistent asthma with acute exacerbation (HCC) Productive cough MQ: [id number] EXAM DATE/TIME: 05/23/2024 1:54 PM COMPARISON: No relevant prior studies available. RESULT: Lines, tubes, and devices: None. Lungs and pleura: No consolidation. No lung mass. No pleural effusion. No pneumothorax. Cardiomediastinal silhouette: Unremarkable cardiomediastinal silhouette. Probably lymph node calcifications in the hilar regions. Bones and soft tissues: There are degenerative changes in the spine. IMPRESSION: No acute radiographic abnormality. Animal Care Worker: PSCB Transcribe Date/Time: May 23 2024 3:54P Dictated by : SHAMIR CORREA MD This examination was interpreted and the report reviewed and electronically signed by: SHAMIR CORREA MD on May 23 2024 4:02PM EST [id number] CNOV Observed: 05/23/2024 1:30 PM Status: COMPLETED Source: [facility] Office Visit (PULMWS) CINTHYA BONE ([id number]) 1970 F NFR Date Time Provider Department 05/23/24 1:30 PM NENITA WOODS PULMWS During your visit today, we recorded the following information about you: Pulse Respiration Weight 92/minute 18/minute 137 kg Nenita Woods APRN.DAKOTA 05/23/2024 1:47 PM Signed Pulmonary Medicine Patients name: Cinthya Banks PCP: Shashi Jones MD CC: acute symptoms HPI: Cinthya Bone is a 53 year old female morbidly obese female, never smoker, with PMH significant for Asthma, GERD, Allergies and history of Covid September 2021. Current maintenance therapy Dulera, Singulair and as needed Albuterol. SUSSY 04/18/24 by PA with increased cough with green sputum, wheezing and exertional dyspnea with minimal exertion. Treated with Doxycycline and Prednisone. [facility] for URI symptoms with cough, headache, chest congestion and scratchy throat x2 days. Given Tessalon perles. Following her last visit, her symptoms resolved after the course of steroids and antibiotics. Currently with symptoms of chills, body aches, sore throat, cough with green, chest congestion wheezing x5 days. Her grandkids were just sick and was exposed to them. Cough is keeping her up at night. Has tried sudafed and the tessalon perles without relief. Her nebulizer quit working and is requesting a new machine. PAST MEDICAL HISTORY Diagnosis Date Allergic rhinitis, cause unspecified 09/10/2008 Arthritis Arthritis of knee 10/30/2020 Asthma Benign neoplasm of left breast 2018 COVID-19 virus infection 10/14/2021 10/14/2021 Environmental allergies Never formally tested. Sneezes, itches around cats. Excessive or frequent menstruation Heavy periods Fatty liver 01/04/2022 Noted on US 12/2021 Gastroesophageal reflux disease without esophagitis 09/10/2008 Hemorrhage of gastrointestinal tract, unspecified 05/10/2014 Irregular menstrual cycle Irregular periods Liver cyst 01/08/2022 MRI: 12/2021 Mild persistent asthma without complication 12/11/2008 Obesity, Class III, BMI >= 40 (morbid obesity) E66.01 12/03/2016 Pneumonia 2008 Required intubation Restless leg syndrome 10/30/2020 Shortness of breath 2007 Was on a ventolator with pneumonia Situational depression 09/28/2022 Tonsil asymmetry 03/04/2018 Lt at 2+ Rt normal. chronic Well adult exam 09/01/2018 Done 10/30/2020 Allergies: Cats Swelling Comment:rash Medication List Accurate as of May 22, 2024 4:01 PM. If you have any questions, ask your nurse or doctor. CONTINUE taking these medications benzonatate 100 mg capsule Commonly known as: TESSALON PERLE Take 1 capsule by mouth three times a day as needed for cough for up to 7 days. buPROPion XL 300 mg 24 hr tablet Commonly known as: WELLBUTRIN XL Take 1 tablet by mouth once daily. celecoxib 200 mg capsule Commonly known as: CeleBREX Take 1 capsule by mouth once daily. cyclobenzaprine 10 mg tablet Commonly known as: FLEXERIL Take 1 tablet by mouth three times a day as needed for muscle spasm. dulaglutide 0.75 mg/0.5 mL pen injector Commonly known as: TRULICITY Inject 0.75 mg subcutaneously one time a week for 28 days. DULERA 200-5 mcg/actuation inhaler Generic drug: mometasone-formoterol Inhale 2 Puffs as instructed two times a day. DULoxetine 20 mg capsule Commonly known as: CYMBALTA Take 1 capsule by mouth once daily. * fluticasone 50 mcg/actuation nasal spray Commonly known as: FLONASE Use 1 [place] in each nostril once daily. * fluticasone 50 mcg/actuation nasal spray Commonly known as: FLONASE ALLERGY RELIEF Use 1 [place] in each nostril once daily. loratadine 10 mg tablet Commonly known as: CLARITIN Take 1 tablet by mouth once daily as needed. FOR ALLERGY SYMPTOMS metFORMIN ER 500 mg 24 hr tablet Commonly known as: GLUCOPHAGE XR Take 2 tablets by mouth daily with dinner. montelukast 10 mg tablet Commonly known as: SINGULAIR Take 1 tablet by mouth daily at bedtime. Nebulizer Accessories Kit Provide 1 kit. omeprazole 20 mg capsule Commonly known as: PriLOSEC TAKE TWO CAPSULES BY MOUTH ONCE DAILY BEFORE BREAKFAST * PROAIR RESPICLICK 90 mcg/actuation Generic drug: albuterol sulfate Inhale 2 Puffs as instructed every 6 hours as needed. * albuterol 2.5 mg /3 mL (0.083 %) nebulizer solution Commonly known as: PROVENTIL Use 3 mL via nebulizer every 4 hours as needed for wheezing/shortness of breath. Use over 5-15minutes. * albuterol HFA 90 mcg/actuation inhaler Commonly known as: PROVENTIL HFA, VENTOLIN HFA INHALE 2 PUFFS BY MOUTH EVERY 6 HOURS NEEDED FOR SHORTNESS OF BREATH AND WHEEZING promethazine 25 mg tablet Commonly known as: PHENERGAN Take 1 tablet by mouth every 6 hours as needed. * rOPINIRole 0.5 mg tablet Commonly known as: REQUIP Take 1 tablet by mouth daily at bedtime. Take with 1mg tab for total of 1.5mg. * rOPINIRole 1 mg tablet Commonly known as: REQUIP Take 1 tablet by mouth daily at bedtime. venlafaxine ER 37.5 mg 24 hr capsule Commonly known as: EFFEXOR XR Take 1 capsule by mouth once daily. VITAMIN B-12 1,000 mcg Tab Generic drug: cyanocobalamin Vitamin D-3 400 unit Tab Generic drug: cholecalciferol * This list has 7 medication(s) that are the same as other medications prescribed for you. Read the directions carefully, and ask your doctor or other care provider to review them with you. DATA: I personally reviewed and analyzed all labs, radiographs and available pulmonary function testing PFT: 04/2022 Spirometry shows a reduced FEV1/FVC ratio; but individually normal FVC and FEV1 predicted values.This pattern indicates mild obstruction or a normal variant. Small airways obstruction. Labs: WBC (k/uL) Date Value 11/07/2023 6.23 10/30/2020 7.66 RBC (m/uL) Date Value 11/07/2023 4.89 10/30/2020 4.71 Hemoglobin (g/dL) Date Value 11/07/2023 12.9 10/30/2020 12.7 Hematocrit (%) Date Value 11/07/2023 40.0 10/30/2020 40.8 Platelet Count (k/uL) Date Value 11/07/2023 357 10/30/2020 386 MPV (fL) Date Value 11/07/2023 9.6 10/30/2020 11.2 Neut% (%) Date Value 10/30/2020 56.8 Neutrophils % (%) Date Value 11/01/2022 65.3 Eosin% (%) Date Value 10/30/2020 6.5 Eosinophils % (%) Date Value 11/01/2022 4.6 Baso% (%) Date Value 10/30/2020 1.4 Basophils % (%) Date Value 11/01/2022 1.3 Abs Neut (ANC) (k/uL) Date Value 10/30/2020 4.34 Abs Neut (k/uL) Date Value 11/01/2022 4.39 Abs [place] (k/uL) Date Value 11/01/2022 0.49 10/30/2020 0.54 Abs Eosin (k/uL) Date Value 11/01/2022 0.31 10/30/2020 0.50 Abs Baso (k/uL) Date Value 11/01/2022 0.09 10/30/2020 0.11 IgE (kU/L) Date Value 10/01/2016 41.7 Review of Systems Constitutional: Positive for chills and fatigue. Negative for unexpected weight change. HENT: Positive for sinus pressure. Negative for congestion and mouth sores. Respiratory: Positive for cough, chest tightness, shortness of breath and wheezing. Cardiovascular: Negative for chest pain and palpitations. Neurological: Positive for headaches. Negative for weakness. BP (P) 152/80 Pulse 92 Resp 18 Wt (!) 137 kg (302 lb) LMP 12/01/2010 (Exact Date) SpO2 99% BMI 52.39 kg/m? Physical Exam Vitals reviewed. Constitutional: General: She is not in acute distress. Appearance: Normal appearance. She is obese. HENT: Head: Normocephalic. Nose: No rhinorrhea. Cardiovascular: Rate and Rhythm: Normal rate and regular rhythm. Heart sounds: Normal heart sounds. Pulmonary: Effort: Pulmonary effort is normal. Breath sounds: Wheezing (upper airway) and rhonchi present. Musculoskeletal: Right lower leg: No edema. Left lower leg: No edema. Lymphadenopathy: Cervical: No cervical adenopathy. Skin: General: Skin is warm and dry. Capillary Refill: Capillary refill takes less than 2 seconds. Neurological: General: No focal deficit present. Mental Status: She is alert. ASSESSMENT/PLAN: 1. Moderate persistent asthma with acute exacerbation (HCC) - ICD9: 493.92, ICD10: J45.41 (primary diagnosis) - chest xray today - treat with Augmentin and Prednisone - continue Dulera and Albuterol as needed. Nebulizer no longer working, will send in new prescription. - NEBULIZER, WITH COMPRESSOR - NEBULIZER ACCESSORIES KIT - AMOXICILLIN 875 MG-POTASSIUM CLAVULANATE 125 MG TABLET - XR CHEST 2V FRONTAL/LAT - PREDNISONE 20 MG TABLET 2. Productive cough - ICD9: 786.2, ICD10: R05.8 - rule out pneumonia - XR CHEST 2V FRONTAL/LAT F/u scheduled in June Portions of this documentation were copied and pasted from previous office visit notes in order to provide a cohesive continuity of the history. The note has been reviewed and edited and updated as necessary. Nenita Woods APRN.DAKOTA I spent a total of 17 minutes on the date of the service which included preparing to see the patient, [id number] patient care, completing clinical documentation, performing a medically appropriate examination, counseling and educating the patient/family/caregiver, and ordering medications, tests, or procedures. Allergies As of Date: 05/23/2024 Noted Allergy Reaction CATS 2011 7 - Swelling Comments: rash Date Reviewed: 05/23/2024 Reviewed by: Nenita Woods APRN.COMMERCIAL CRABBER - Fully Assessed Reason for Visit: Established Patient [175] Cmt: Follow up asthma, increasing dyspnea, needs new neb Primary Visit Diagnosis:Moderate persistent asthma with acute exacerbation (HCC) [J45.41] Other Visit Diagnosis:Productive cough [R05.8] Order(s):NEBULIZER, WITH COMPRESSOR [[id number]] Order #: [id number] Nebulizer Accessories kit2 Each one time only for 1 dose.Disp: 2 EachRfl: 11 amoxicillin-clavulanate potassium (AUGMENTIN) 875-125 mg per tabletTake 1 tablet by mouth two times a day for 7 days.Disp: 14 tabletRfl: 0 XR CHEST 2V FRONTAL/LAT [[id number]] Order #: [id number] FUTURE predniSONE (DELTASONE) 20 mg tabletTake 2 tablets by mouth once daily for 3 days, THEN 1.5 tablets once daily for 3 days, THEN 1 tablet once daily for 3 days, THEN 0.5 tablets once daily for 3 days.Disp: 15 tabletRfl: 0 Prescriptions as of 05/23/2024 - Nebulizer Accessories kit 2 Each one time only for 1 dose. - amoxicillin-clavulanate potassium (AUGMENTIN) 875-125 mg per tablet Take 1 tablet by mouth two times a day for 7 days. - predniSONE (DELTASONE) 20 mg tablet Take 2 tablets by mouth once daily for 3 days, THEN 1.5 tablets once daily for 3 days, THEN 1 tablet once daily for 3 days, THEN 0.5 tablets once daily for 3 days. - fluticasone (FLONASE ALLERGY RELIEF) 50 mcg/actuation nasal spray Use 1 [place] in each nostril once daily. - benzonatate (TESSALON PERLE) 100 mg capsule Take 1 capsule by mouth three times a day as needed for cough for up to 7 days. - rOPINIRole (REQUIP) 0.5 mg tablet Take 1 tablet by mouth daily at bedtime. Take with 1mg tab for total of 1.5mg. - rOPINIRole (REQUIP) 1 mg tablet Take 1 tablet by mouth daily at bedtime. - DULoxetine (CYMBALTA) 20 mg capsule Take 1 capsule by mouth once daily. - venlafaxine ER (EFFEXOR XR) 37.5 mg 24 hr capsule Take 1 capsule by mouth once daily. - dulaglutide (TRULICITY) 0.75 mg/0.5 mL pen injector Inject 0.75 mg subcutaneously one time a week for 28 days. - omeprazole (PRILOSEC) 20 mg capsule TAKE TWO CAPSULES BY MOUTH ONCE DAILY BEFORE BREAKFAST - cyclobenzaprine (FLEXERIL) 10 mg tablet Take 1 tablet by mouth three times a day as needed for muscle spasm. - buPROPion XL (WELLBUTRIN XL) 300 mg 24 hr tablet Take 1 tablet by mouth once daily. - celecoxib (CELEBREX) 200 mg capsule Take 1 capsule by mouth once daily. - montelukast (SINGULAIR) 10 mg tablet Take 1 tablet by mouth daily at bedtime. - cyanocobalamin (VITAMIN B-12) 1,000 mcg tab Take 1,000 mcg by mouth once daily. - cholecalciferol (VITAMIN D-3) 400 unit tab Take 400 Units by mouth once daily. - metFORMIN ER (GLUCOPHAGE XR) 500 mg 24 hr tablet Take 2 tablets by mouth daily with dinner. - mometasone-formoterol (DULERA) 200-5 mcg/actuation inhaler Inhale 2 Puffs as instructed two times a day. - loratadine (CLARITIN) 10 mg tablet Take 1 tablet by mouth once daily as needed. FOR ALLERGY SYMPTOMS - albuterol HFA (PROVENTIL HFA, VENTOLIN HFA) 90 mcg/actuation inhaler INHALE 2 PUFFS BY MOUTH EVERY 6 HOURS NEEDED FOR SHORTNESS OF BREATH AND WHEEZING - Nebulizer Accessories kit Provide 1 kit. - albuterol (PROVENTIL) 2.5 mg /3 mL (0.083 %) nebulizer solution Use 3 mL via nebulizer every 4 hours as needed for wheezing/shortness of breath. Use over 5-15minutes. - fluticasone (FLONASE) 50 mcg/actuation nasal spray Use 1 [place] in each nostril once daily. - promethazine (PHENERGAN) 25 mg tablet Take 1 tablet by mouth every 6 hours as needed. - ProAir RespiClick 90 mcg/actuation breath activated (albuterol sulfate) Inhale 2 Puffs as instructed every 6 hours as needed. Problem List As Of Date 05/23/2024 Noted Resolved Shortness of breath [R06.02] 01/13/2011 Pneumonia, organism unspecified [J18.9] 07/15/2006 01/13/2011 Acute respiratory failure [J96.00] 07/15/2006 01/13/2011 ACUTE URI NOS [J06.9] 08/07/2007 09/10/2008 Gastroesophageal reflux disease without esophag*09/10/2008 Allergic rhinitis [J30.9] 09/10/2008 Moderate persistent asthma without complication*12/11/2008 Environmental allergies [Z91.09] Obesity, Class III, BMI >= 40 (morbid obesity) *12/03/2016 Irritable mood [R45.4] 03/04/2018 Post menopausal syndrome [N95.1] 03/04/2018 Tonsil asymmetry [J35.8] 03/04/2018 Encounter for screening for diabetes mellitus [*03/04/2018 Well adult exam [Z00.00] 09/01/2018 Medication management [Z79.899] 09/01/2018 Arthritis of knee [M17.10] 10/30/2020 Restless leg syndrome [G25.81] 10/30/2020 COVID-19 virus infection [U07.1] 10/14/2021 Fatty liver [K76.0] 01/04/2022 Liver cyst [K76.89] 01/08/2022 Situational depression [F43.21] 09/28/2022 DRE (obstructive sleep apnea) [G47.33] 11/01/2023 Class 3 severe obesity with serious comorbidity*12/21/2023 Hyperinsulinemia [E16.1] 12/21/2023 Acute right-sided thoracic back pain [M54.6] 04/27/2024 Prescriptions ordered this encounter Disp Refills Start End NEBULIZER ACCESSORIES KIT 2 Ea* 11 05/23/2024 05/23/2024 Route: Misc Si Each one time only for 1 dose. AMOXICILLIN 875 MG-POTASSIUM CLAVULA* 14 t* 0 05/23/2024 05/30/2024 Route: ORAL Sig: Take 1 tablet by mouth two times a day for 7 days. PREDNISONE 20 MG TABLET 15 t* 0 05/23/2024 06/04/2024 Route: ORAL Sig: Take 2 tablets by mouth once daily for 3 days, THEN 1.5 tablets once daily for 3 days, THEN 1 tablet once daily for 3 days, THEN 0.5 tablets once daily for 3 days. Level of Service: OFFICE/OUTPATIENT ESTABLISHED [facility] 10 MIN [09598] Additional E/M codes: VISIT CPLX INHERENT EANDM ASSOC WITH MED * Encounter Status:Closed by NENITA WOODS on 05/23/24 PROGRESS Observed: 05/23/2024 1:30 PM Status: COMPLETED Source: [facility] HNO ID: [id number] Author: NENITA WOODS APRN.COMMERCIAL CRABBER Service: ? Author Type: Nurse Practitioner Type: Progress Notes Filed: 05/23/2024 13:47 Note Text: Pulmonary Medicine Patients name: Cinthya Banks PCP: Shashi Jones MD CC: acute symptoms HPI: Cinthya Bone is a 53 year old female morbidly obese female, never smoker, with PMH significant for Asthma, GERD, Allergies and history of Covid September 2021. Current maintenance therapy Dulera, Singulair and as needed Albuterol. SUSSY 04/18/24 by PA with increased cough with green sputum, wheezing and exertional dyspnea with minimal exertion. Treated with Doxycycline and Prednisone. [facility] for URI symptoms with cough, headache, chest congestion and scratchy throat x2 days. Given Tessalon perles. Following her last visit, her symptoms resolved after the course of steroids and antibiotics. Currently with symptoms of chills, body aches, sore throat, cough with green, chest congestion wheezing x5 days. Her grandkids were just sick and was exposed to them. Cough is keeping her up at night. Has tried sudafed and the tessalon perles without relief. Her nebulizer quit working and is requesting a new machine. PAST MEDICAL HISTORY Diagnosis Date Allergic rhinitis, cause unspecified 09/10/2008 Arthritis Arthritis of knee 10/30/2020 Asthma Benign neoplasm of left breast 2018 COVID-19 virus infection 10/14/2021 10/14/2021 Environmental allergies Never formally tested. Sneezes, itches around cats. Excessive or frequent menstruation Heavy periods Fatty liver 01/04/2022 Noted on US 12/2021 Gastroesophageal reflux disease without esophagitis 09/10/2008 Hemorrhage of gastrointestinal tract, unspecified 05/10/2014 Irregular menstrual cycle Irregular periods Liver cyst 01/08/2022 MRI: 12/2021 Mild persistent asthma without complication 12/11/2008 Obesity, Class III, BMI >= 40 (morbid obesity) E66.01 12/03/2016 Pneumonia 2008 Required intubation Restless leg syndrome 10/30/2020 Shortness of breath 2007 Was on a ventolator with pneumonia Situational depression 09/28/2022 Tonsil asymmetry 03/04/2018 Lt at 2+ Rt normal. chronic Well adult exam 09/01/2018 Done 10/30/2020 Allergies: Cats Swelling Comment:rash Medication List Accurate as of May 22, 2024 4:01 PM. If you have any questions, ask your nurse or doctor. CONTINUE taking these medications benzonatate 100 mg capsule Commonly known as: TESSALON PERLE Take 1 capsule by mouth three times a day as needed for cough for up to 7 days. buPROPion XL 300 mg 24 hr tablet Commonly known as: WELLBUTRIN XL Take 1 tablet by mouth once daily. celecoxib 200 mg capsule Commonly known as: CeleBREX Take 1 capsule by mouth once daily. cyclobenzaprine 10 mg tablet Commonly known as: FLEXERIL Take 1 tablet by mouth three times a day as needed for muscle spasm. dulaglutide 0.75 mg/0.5 mL pen injector Commonly known as: TRULICITY Inject 0.75 mg subcutaneously one time a week for 28 days. DULERA 200-5 mcg/actuation inhaler Generic drug: mometasone-formoterol Inhale 2 Puffs as instructed two times a day. DULoxetine 20 mg capsule Commonly known as: CYMBALTA Take 1 capsule by mouth once daily. * fluticasone 50 mcg/actuation nasal spray Commonly known as: FLONASE Use 1 [place] in each nostril once daily. * fluticasone 50 mcg/actuation nasal spray Commonly known as: FLONASE ALLERGY RELIEF Use 1 [place] in each nostril once daily. loratadine 10 mg tablet Commonly known as: CLARITIN Take 1 tablet by mouth once daily as needed. FOR ALLERGY SYMPTOMS metFORMIN ER 500 mg 24 hr tablet Commonly known as: GLUCOPHAGE XR Take 2 tablets by mouth daily with dinner. montelukast 10 mg tablet Commonly known as: SINGULAIR Take 1 tablet by mouth daily at bedtime. Nebulizer Accessories Kit Provide 1 kit. omeprazole 20 mg capsule Commonly known as: PriLOSEC TAKE TWO CAPSULES BY MOUTH ONCE DAILY BEFORE BREAKFAST * PROAIR RESPICLICK 90 mcg/actuation Generic drug: albuterol sulfate Inhale 2 Puffs as instructed every 6 hours as needed. * albuterol 2.5 mg /3 mL (0.083 %) nebulizer solution Commonly known as: PROVENTIL Use 3 mL via nebulizer every 4 hours as needed for wheezing/shortness of breath. Use over 5-15minutes. * albuterol HFA 90 mcg/actuation inhaler Commonly known as: PROVENTIL HFA, VENTOLIN HFA INHALE 2 PUFFS BY MOUTH EVERY 6 HOURS NEEDED FOR SHORTNESS OF BREATH AND WHEEZING promethazine 25 mg tablet Commonly known as: PHENERGAN Take 1 tablet by mouth every 6 hours as needed. * rOPINIRole 0.5 mg tablet Commonly known as: REQUIP Take 1 tablet by mouth daily at bedtime. Take with 1mg tab for total of 1.5mg. * rOPINIRole 1 mg tablet Commonly known as: REQUIP Take 1 tablet by mouth daily at bedtime. venlafaxine ER 37.5 mg 24 hr capsule Commonly known as: EFFEXOR XR Take 1 capsule by mouth once daily. VITAMIN B-12 1,000 mcg Tab Generic drug: cyanocobalamin Vitamin D-3 400 unit Tab Generic drug: cholecalciferol * This list has 7 medication(s) that are the same as other medications prescribed for you. Read the directions carefully, and ask your doctor or other care provider to review them with you. DATA: I personally reviewed and analyzed all labs, radiographs and available pulmonary function testing PFT: 04/2022 Spirometry shows a reduced FEV1/FVC ratio; but individually normal FVC and FEV1 predicted values.This pattern indicates mild obstruction or a normal variant. Small airways obstruction. Labs: WBC (k/uL) Date Value 11/07/2023 6.23 10/30/2020 7.66 RBC (m/uL) Date Value 11/07/2023 4.89 10/30/2020 4.71 Hemoglobin (g/dL) Date Value 11/07/2023 12.9 10/30/2020 12.7 Hematocrit (%) Date Value 11/07/2023 40.0 10/30/2020 40.8 Platelet Count (k/uL) Date Value 11/07/2023 357 10/30/2020 386 MPV (fL) Date Value 11/07/2023 9.6 10/30/2020 11.2 Neut% (%) Date Value 10/30/2020 56.8 Neutrophils % (%) Date Value 11/01/2022 65.3 Eosin% (%) Date Value 10/30/2020 6.5 Eosinophils % (%) Date Value 11/01/2022 4.6 Baso% (%) Date Value 10/30/2020 1.4 Basophils % (%) Date Value 11/01/2022 1.3 Abs Neut (ANC) (k/uL) Date Value 10/30/2020 4.34 Abs Neut (k/uL) Date Value 11/01/2022 4.39 Abs [place] (k/uL) Date Value 11/01/2022 0.49 10/30/2020 0.54 Abs Eosin (k/uL) Date Value 11/01/2022 0.31 10/30/2020 0.50 Abs Baso (k/uL) Date Value 11/01/2022 0.09 10/30/2020 0.11 IgE (kU/L) Date Value 10/01/2016 41.7 Review of Systems Constitutional: Positive for chills and fatigue. Negative for unexpected weight change. HENT: Positive for sinus pressure. Negative for congestion and mouth sores. Respiratory: Positive for cough, chest tightness, shortness of breath and wheezing. Cardiovascular: Negative for chest pain and palpitations. Neurological: Positive for headaches. Negative for weakness. BP (P) 152/80 Pulse 92 Resp 18 Wt (!) 137 kg (302 lb) LMP 12/01/2010 (Exact Date) SpO2 99% BMI 52.39 kg/m? Physical Exam Vitals reviewed. Constitutional: General: She is not in acute distress. Appearance: Normal appearance. She is obese. HENT: Head: Normocephalic. Nose: No rhinorrhea. Cardiovascular: Rate and Rhythm: Normal rate and regular rhythm. Heart sounds: Normal heart sounds. Pulmonary: Effort: Pulmonary effort is normal. Breath sounds: Wheezing (upper airway) and rhonchi present. Musculoskeletal: Right lower leg: No edema. Left lower leg: No edema. Lymphadenopathy: Cervical: No cervical adenopathy. Skin: General: Skin is warm and dry. Capillary Refill: Capillary refill takes less than 2 seconds. Neurological: General: No focal deficit present. Mental Status: She is alert. ASSESSMENT/PLAN: 1. Moderate persistent asthma with acute exacerbation (HCC) - ICD9: 493.92, ICD10: J45.41 (primary diagnosis) - chest xray today - treat with Augmentin and Prednisone - continue Dulera and Albuterol as needed. Nebulizer no longer working, will send in new prescription. - NEBULIZER, WITH COMPRESSOR - NEBULIZER ACCESSORIES KIT - AMOXICILLIN 875 MG-POTASSIUM CLAVULANATE 125 MG TABLET - XR CHEST 2V FRONTAL/LAT - PREDNISONE 20 MG TABLET 2. Productive cough - ICD9: 786.2, ICD10: R05.8 - rule out pneumonia - XR CHEST 2V FRONTAL/LAT F/u scheduled in June Portions of this documentation were copied and pasted from previous office visit notes in order to provide a cohesive continuity of the history. The note has been reviewed and edited and updated as necessary. Nenita Woods APRN.DAKOTA I spent a total of 17 minutes on the date of the service which included preparing to see the patient, [id number] patient care, completing clinical documentation, performing a medically appropriate examination, counseling and educating the patient/family/caregiver, and ordering medications, tests, or procedures. KEVIN Observed: 05/22/2024 12:00 AM Status: COMPLETED Source: [facility] Telephone (4CQ) CINTHYA BONE ([id number]) 1970 F NFR Date Time Provider Department 05/22/24 LILLIE PERRY 4CQ During your visit today, we recorded the following information about you: Tonie Navarro 05/22/2024 3:44 PM Signed Pt called in stating nebulizer is not working right. Brenda James LPN 05/23/2024 8:15 AM Signed Patient has appt 05/23. [facility] [employer] will send new order at appt. Brenda James LPN Allergies As of Date: 05/22/2024 Noted Allergy Reaction CATS 2011 7 - Swelling Comments: rash Date Reviewed: 05/19/2024 Reviewed by: Billie Estrella MA - Fully Assessed Reason for Visit: Refill Request [94] Prescriptions as of 05/23/2024 - fluticasone (FLONASE ALLERGY RELIEF) 50 mcg/actuation nasal spray Use 1 [place] in each nostril once daily. - benzonatate (TESSALON PERLE) 100 mg capsule Take 1 capsule by mouth three times a day as needed for cough for up to 7 days. - rOPINIRole (REQUIP) 0.5 mg tablet Take 1 tablet by mouth daily at bedtime. Take with 1mg tab for total of 1.5mg. - rOPINIRole (REQUIP) 1 mg tablet Take 1 tablet by mouth daily at bedtime. - DULoxetine (CYMBALTA) 20 mg capsule Take 1 capsule by mouth once daily. - venlafaxine ER (EFFEXOR XR) 37.5 mg 24 hr capsule Take 1 capsule by mouth once daily. - dulaglutide (TRULICITY) 0.75 mg/0.5 mL pen injector Inject 0.75 mg subcutaneously one time a week for 28 days. - omeprazole (PRILOSEC) 20 mg capsule TAKE TWO CAPSULES BY MOUTH ONCE DAILY BEFORE BREAKFAST - cyclobenzaprine (FLEXERIL) 10 mg tablet Take 1 tablet by mouth three times a day as needed for muscle spasm. - buPROPion XL (WELLBUTRIN XL) 300 mg 24 hr tablet Take 1 tablet by mouth once daily. - celecoxib (CELEBREX) 200 mg capsule Take 1 capsule by mouth once daily. - montelukast (SINGULAIR) 10 mg tablet Take 1 tablet by mouth daily at bedtime. - cyanocobalamin (VITAMIN B-12) 1,000 mcg tab Take 1,000 mcg by mouth once daily. - cholecalciferol (VITAMIN D-3) 400 unit tab Take 400 Units by mouth once daily. - metFORMIN ER (GLUCOPHAGE XR) 500 mg 24 hr tablet Take 2 tablets by mouth daily with dinner. - mometasone-formoterol (DULERA) 200-5 mcg/actuation inhaler Inhale 2 Puffs as instructed two times a day. - loratadine (CLARITIN) 10 mg tablet Take 1 tablet by mouth once daily as needed. FOR ALLERGY SYMPTOMS - albuterol HFA (PROVENTIL HFA, VENTOLIN HFA) 90 mcg/actuation inhaler INHALE 2 PUFFS BY MOUTH EVERY 6 HOURS NEEDED FOR SHORTNESS OF BREATH AND WHEEZING - Nebulizer Accessories kit Provide 1 kit. - albuterol (PROVENTIL) 2.5 mg /3 mL (0.083 %) nebulizer solution Use 3 mL via nebulizer every 4 hours as needed for wheezing/shortness of breath. Use over 5-15minutes. - fluticasone (FLONASE) 50 mcg/actuation nasal spray Use 1 [place] in each nostril once daily. - promethazine (PHENERGAN) 25 mg tablet Take 1 tablet by mouth every 6 hours as needed. - ProAir RespiClick 90 mcg/actuation breath activated (albuterol sulfate) Inhale 2 Puffs as instructed every 6 hours as needed. Problem List As Of Date 05/22/2024 Noted Resolved Shortness of breath [R06.02] 01/13/2011 Pneumonia, organism unspecified [J18.9] 07/15/2006 01/13/2011 Acute respiratory failure [J96.00] 07/15/2006 01/13/2011 ACUTE URI NOS [J06.9] 08/07/2007 09/10/2008 Gastroesophageal reflux disease without esophag*09/10/2008 Allergic rhinitis [J30.9] 09/10/2008 Moderate persistent asthma without complication*12/11/2008 Environmental allergies [Z91.09] Obesity, Class III, BMI >= 40 (morbid obesity) *12/03/2016 Irritable mood [R45.4] 03/04/2018 Post menopausal syndrome [N95.1] 03/04/2018 Tonsil asymmetry [J35.8] 03/04/2018 Encounter for screening for diabetes mellitus [*03/04/2018 Well adult exam [Z00.00] 09/01/2018 Medication management [Z79.899] 09/01/2018 Arthritis of knee [M17.10] 10/30/2020 Restless leg syndrome [G25.81] 10/30/2020 COVID-19 virus infection [U07.1] 10/14/2021 Fatty liver [K76.0] 01/04/2022 Liver cyst [K76.89] 01/08/2022 Situational depression [F43.21] 09/28/2022 DRE (obstructive sleep apnea) [G47.33] 11/01/2023 Class 3 severe obesity with serious comorbidity*12/21/2023 Hyperinsulinemia [E16.1] 12/21/2023 Acute right-sided thoracic back pain [M54.6] 04/27/2024 Encounter Status:Closed by BRENDA JAMES on 05/23/24 PROGRESS Observed: 05/19/2024 12:58 PM Status: COMPLETED Source: [facility] HNO ID: [id number] Author: SHASHI DORSEY APRN.[employer] Service: ? Author Type: Nurse Practitioner Type: Progress Notes Filed: 05/19/2024 13:02 Note Text: Subjective HPI Nontoxic-appearing 53-year-old female presents urgent care chief complaint URI symptoms. Duration of symptoms 2 days. Associated symptoms sore throat, nasal congestion, nasal discharge and nonproductive cough. Patient denies the use of any [id number] medications or home remedies for symptom management. Patient states recent sick contacts with similar signs and symptoms. Patient denies any productive cough, fever, chest pain, shortness of breath, pleuritic pain, rash, abdominal pain, nausea, vomiting or change in bowel or bladder habit. Past medical history prescription medications allergies reviewed .Patient presents with: Chest Congestion: cough, headache, left ear pain, throat scratchy x 2 days PAST MEDICAL HISTORY Diagnosis Date Allergic rhinitis, cause unspecified 09/10/2008 Arthritis Arthritis of knee 10/30/2020 Asthma Benign neoplasm of left breast 2018 COVID-19 virus infection 10/14/2021 10/14/2021 Environmental allergies Never formally tested. Sneezes, itches around cats. Excessive or frequent menstruation Heavy periods Fatty liver 01/04/2022 Noted on US 12/2021 Gastroesophageal reflux disease without esophagitis 09/10/2008 Hemorrhage of gastrointestinal tract, unspecified 05/10/2014 Irregular menstrual cycle Irregular periods Liver cyst 01/08/2022 MRI: 12/2021 Mild persistent asthma without complication 12/11/2008 Obesity, Class III, BMI >= 40 (morbid obesity) E66.01 12/03/2016 Pneumonia 2008 Required intubation Restless leg syndrome 10/30/2020 Shortness of breath 2007 Was on a ventolator with pneumonia Situational depression 09/28/2022 Tonsil asymmetry 03/04/2018 Lt at 2+ Rt normal. chronic Well adult exam 09/01/2018 Done 10/30/2020 PAST SURGICAL HISTORY Procedure Laterality Date COLONOSCOPY FLX DX W/COLLJ SPEC WHEN PFRMD 05/10/2014 Colonoscopy EXC BREAST LES PREOP PLMT RAD MARKER OPEN 1 LES Left 01/05/2019 HYSTEROSCOPY, DIAGNOSTIC (SEPARATE 06/2010 Hysteroscopy AND curettage INCISE FINGER TENDON SHEATH Right 06/04/2020 Right ring trigger finger LIG/TRNSXJ FLP TUBE ABDL/VAG APPR UNI/BI Tubal ligation VAGINAL HYSTERECTOMY UTERUS 250 GM/< 12/08/2010 TVH ALLERGIES Cats MEDICATIONS rOPINIRole (REQUIP) 0.5 mg tablet Take 1 tablet by mouth daily at bedtime. Take with 1mg tab for total of 1.5mg. rOPINIRole (REQUIP) 1 mg tablet Take 1 tablet by mouth daily at bedtime. DULoxetine (CYMBALTA) 20 mg capsule Take 1 capsule by mouth once daily. venlafaxine ER (EFFEXOR XR) 37.5 mg 24 hr capsule Take 1 capsule by mouth once daily. omeprazole (PRILOSEC) 20 mg capsule TAKE TWO CAPSULES BY MOUTH ONCE DAILY BEFORE BREAKFAST cyclobenzaprine (FLEXERIL) 10 mg tablet Take 1 tablet by mouth three times a day as needed for muscle spasm. buPROPion XL (WELLBUTRIN XL) 300 mg 24 hr tablet Take 1 tablet by mouth once daily. celecoxib (CELEBREX) 200 mg capsule Take 1 capsule by mouth once daily. montelukast (SINGULAIR) 10 mg tablet Take 1 tablet by mouth daily at bedtime. cyanocobalamin (VITAMIN B-12) 1,000 mcg tab Take 1,000 mcg by mouth once daily. cholecalciferol (VITAMIN D-3) 400 unit tab Take 400 Units by mouth once daily. metFORMIN ER (GLUCOPHAGE XR) 500 mg 24 hr tablet Take 2 tablets by mouth daily with dinner. mometasone-formoterol (DULERA) 200-5 mcg/actuation inhaler Inhale 2 Puffs as instructed two times a day. loratadine (CLARITIN) 10 mg tablet Take 1 tablet by mouth once daily as needed. FOR ALLERGY SYMPTOMS albuterol HFA (PROVENTIL HFA, VENTOLIN HFA) 90 mcg/actuation inhaler INHALE 2 PUFFS BY MOUTH EVERY 6 HOURS NEEDED FOR SHORTNESS OF BREATH AND WHEEZING Nebulizer Accessories kit Provide 1 kit. fluticasone (FLONASE) 50 mcg/actuation nasal spray Use 1 [place] in each nostril once daily. promethazine (PHENERGAN) 25 mg tablet Take 1 tablet by mouth every 6 hours as needed. ProAir RespiClick 90 mcg/actuation breath activated (albuterol sulfate) Inhale 2 Puffs as instructed every 6 hours as needed. fluticasone (FLONASE ALLERGY RELIEF) 50 mcg/actuation nasal spray Use 1 [place] in each nostril once daily. benzonatate (TESSALON PERLE) 100 mg capsule Take 1 capsule by mouth three times a day as needed for cough for up to 7 days. dulaglutide (TRULICITY) 0.75 mg/0.5 mL pen injector Inject 0.75 mg subcutaneously one time a week for 28 days. (Patient not taking: Reported on 05/19/2024) albuterol (PROVENTIL) 2.5 mg /3 mL (0.083 %) nebulizer solution Use 3 mL via nebulizer every 4 hours as needed for wheezing/shortness of breath. Use over 5-15minutes. FAMILY HISTORY Problem Relation Age of Onset Obesity Mother Cancer Father Stomach Heart Attack Brother 52 Obesity Brother Hypertension Brother Obesity Maternal Grandmother Obesity Maternal Grandfather Heart Paternal Grandmother COPD Paternal Grandmother Emphysema. Smoker. Obesity Paternal Grandmother Obesity Paternal Grandfather Asthma Son Breast Cancer Paternal Aunt Diabetes Paternal Aunt Social History Tobacco Use Smoking status: Never Smokeless tobacco: Never Tobacco comments: ETS exposure: Spouse and son smoke in home. Other family visitors smoke. Parents and Grandparents smoked in childhood home. Vaping Use Vaping status: Never Used Substance Use Topics Alcohol use: Not Currently Comment: social Drug use: Not Currently BP 144/84 Pulse 96 Temp 36.3 ?C (97.4 ?F) Resp 18 Wt (!) 137.2 kg (302 lb 7.5 oz) LMP 12/01/2010 (Exact Date) SpO2 97% BMI 52.47 kg/m? Review of Systems Constitutional: Positive for malaise/fatigue. Negative for chills and fever. HENT: Positive for congestion and sore throat. Negative for ear discharge, ear pain and sinus pain. Eyes: Negative for blurred vision, pain, discharge and redness. Respiratory: Positive for cough. Negative for hemoptysis, sputum production, shortness of breath, wheezing and stridor. Cardiovascular: Negative for chest pain. Gastrointestinal: Negative for abdominal pain, diarrhea, nausea and vomiting. Musculoskeletal: Positive for myalgias. Skin: Negative for itching and rash. Neurological: Positive for headaches. Negative for dizziness. Objective Physical Exam HENT: Head: Normocephalic. Jaw: No trismus, tenderness, swelling or pain on movement. Right Ear: Tympanic membrane, ear canal and external ear normal. Left Ear: Tympanic membrane, ear canal and external ear normal. Nose: Congestion present. Mouth/Throat: Mouth: Mucous membranes are moist. Pharynx: Oropharynx is clear. Uvula midline. No oropharyngeal exudate or posterior oropharyngeal erythema. Eyes: Pupils: Pupils are equal, round, and reactive to light. Cardiovascular: Rate and Rhythm: Normal rate. Pulmonary: Effort: Pulmonary effort is normal. No accessory muscle usage, respiratory distress or retractions. Breath sounds: No stridor. No wheezing, rhonchi or rales. Abdominal: Palpations: Abdomen is soft. Tenderness: There is no abdominal tenderness. There is no guarding or rebound. Musculoskeletal: Cervical back: No erythema or tenderness. No pain with movement. Normal range of motion. Lymphadenopathy: Cervical: No cervical adenopathy. Neurological: General: No focal deficit present. Mental Status: She is alert and oriented to person, place, and time. Mental status is at baseline. ASSESSMENT/PLAN: 1. URI with cough and congestion - ICD9: 465.9, ICD10: J06.9 - Discussed viral etiology and rationale for treatment. - Symptomatic treatment with prn analgesia - Supportive care with fluids and rest No evidence of bacterial infection. Treat as viral etiology. Supportive therapies sent to pharmacy. Patient was educated on supportive therapies. Patient will follow up with primary care provider as needed. Patient was instructed to immediately proceed to emergency room for any new, worsening, or symptoms lasting longer than anticipated. The patient's clinical presentation is otherwise unremarkable at this time. Based on exam and clinical finding, the patient is stable for discharge. Plan of care was discussed with patient. Patient verbalizes understanding and agrees to plan of care. This note was generated using [employer] software. It may contain errors in wording, punctuation, or spelling. TAMMY GibbsOV Observed: 05/19/2024 12:45 PM Status: COMPLETED Source: [facility] Office Visit (WSTR) CINTHYA BONE ([id number]) 1970 F NFR Date Time Provider Department 05/19/24 12:45 PM SHASHI DORSEY JAYY During your visit today, we recorded the following information about you: Temperature Pulse Respiration Blood pressure 97.4 degrees 96/minute 18/minute 144/84 Weight 137.2 kg Shashi Dorsey APRN.CNP 05/19/2024 1:02 PM Signed Subjective HPI Nontoxic-appearing 53-year-old female presents urgent care chief complaint URI symptoms. Duration of symptoms 2 days. Associated symptoms sore throat, nasal congestion, nasal discharge and nonproductive cough. Patient denies the use of any hkzl-dun-vtyfpyo medications or home remedies for symptom management. Patient states recent sick contacts with similar signs and symptoms. Patient denies any productive cough, fever, chest pain, shortness of breath, pleuritic pain, rash, abdominal pain, nausea, vomiting or change in bowel or bladder habit. Past medical history prescription medications allergies reviewed .Patient presents with: Chest Congestion: cough, headache, left ear pain, throat scratchy x 2 days PAST MEDICAL HISTORY Diagnosis Date Allergic rhinitis, cause unspecified 09/10/2008 Arthritis Arthritis of knee 10/30/2020 Asthma Benign neoplasm of left breast 2018 COVID-19 virus infection 10/14/2021 10/14/2021 Environmental allergies Never formally tested. Sneezes, itches around cats. Excessive or frequent menstruation Heavy periods Fatty liver 01/04/2022 Noted on US 12/2021 Gastroesophageal reflux disease without esophagitis 09/10/2008 Hemorrhage of gastrointestinal tract, unspecified 05/10/2014 Irregular menstrual cycle Irregular periods Liver cyst 01/08/2022 MRI: 12/2021 Mild persistent asthma without complication 12/11/2008 Obesity, Class III, BMI >= 40 (morbid obesity) E66.01 12/03/2016 Pneumonia 2008 Required intubation Restless leg syndrome 10/30/2020 Shortness of breath 2007 Was on a ventolator with pneumonia Situational depression 09/28/2022 Tonsil asymmetry 03/04/2018 Lt at 2+ Rt normal. chronic Well adult exam 09/01/2018 Done 10/30/2020 PAST SURGICAL HISTORY Procedure Laterality Date COLONOSCOPY FLX DX W/COLLJ SPEC WHEN PFRMD 05/10/2014 Colonoscopy EXC BREAST LES PREOP PLMT RAD MARKER OPEN 1 LES Left 01/05/2019 HYSTEROSCOPY, DIAGNOSTIC (SEPARATE 06/2010 Hysteroscopy AND curettage INCISE FINGER TENDON SHEATH Right 06/04/2020 Right ring trigger finger LIG/TRNSXJ FLP TUBE ABDL/VAG APPR UNI/BI Tubal ligation VAGINAL HYSTERECTOMY UTERUS 250 GM/< 12/08/2010 TVH ALLERGIES Cats MEDICATIONS rOPINIRole (REQUIP) 0.5 mg tablet Take 1 tablet by mouth daily at bedtime. Take with 1mg tab for total of 1.5mg. rOPINIRole (REQUIP) 1 mg tablet Take 1 tablet by mouth daily at bedtime. DULoxetine (CYMBALTA) 20 mg capsule Take 1 capsule by mouth once daily. venlafaxine ER (EFFEXOR XR) 37.5 mg 24 hr capsule Take 1 capsule by mouth once daily. omeprazole (PRILOSEC) 20 mg capsule TAKE TWO CAPSULES BY MOUTH ONCE DAILY BEFORE BREAKFAST cyclobenzaprine (FLEXERIL) 10 mg tablet Take 1 tablet by mouth three times a day as needed for muscle spasm. buPROPion XL (WELLBUTRIN XL) 300 mg 24 hr tablet Take 1 tablet by mouth once daily. celecoxib (CELEBREX) 200 mg capsule Take 1 capsule by mouth once daily. montelukast (SINGULAIR) 10 mg tablet Take 1 tablet by mouth daily at bedtime. cyanocobalamin (VITAMIN B-12) 1,000 mcg tab Take 1,000 mcg by mouth once daily. cholecalciferol (VITAMIN D-3) 400 unit tab Take 400 Units by mouth once daily. metFORMIN ER (GLUCOPHAGE XR) 500 mg 24 hr tablet Take 2 tablets by mouth daily with dinner. mometasone-formoterol (DULERA) 200-5 mcg/actuation inhaler Inhale 2 Puffs as instructed two times a day. loratadine (CLARITIN) 10 mg tablet Take 1 tablet by mouth once daily as needed. FOR ALLERGY SYMPTOMS albuterol HFA (PROVENTIL HFA, VENTOLIN HFA) 90 mcg/actuation inhaler INHALE 2 PUFFS BY MOUTH EVERY 6 HOURS NEEDED FOR SHORTNESS OF BREATH AND WHEEZING Nebulizer Accessories kit Provide 1 kit. fluticasone (FLONASE) 50 mcg/actuation nasal spray Use 1 [place] in each nostril once daily. promethazine (PHENERGAN) 25 mg tablet Take 1 tablet by mouth every 6 hours as needed. ProAir RespiClick 90 mcg/actuation breath activated (albuterol sulfate) Inhale 2 Puffs as instructed every 6 hours as needed. fluticasone (FLONASE ALLERGY RELIEF) 50 mcg/actuation nasal spray Use 1 [place] in each nostril once daily. benzonatate (TESSALON PERLE) 100 mg capsule Take 1 capsule by mouth three times a day as needed for cough for up to 7 days. dulaglutide (TRULICITY) 0.75 mg/0.5 mL pen injector Inject 0.75 mg subcutaneously one time a week for 28 days. (Patient not taking: Reported on 05/19/2024) albuterol (PROVENTIL) 2.5 mg /3 mL (0.083 %) nebulizer solution Use 3 mL via nebulizer every 4 hours as needed for wheezing/shortness of breath. Use over 5-15minutes. FAMILY HISTORY Problem Relation Age of Onset Obesity Mother Cancer Father Stomach Heart Attack Brother 52 Obesity Brother Hypertension Brother Obesity Maternal Grandmother Obesity Maternal Grandfather Heart Paternal Grandmother COPD Paternal Grandmother Emphysema. Smoker. Obesity Paternal Grandmother Obesity Paternal Grandfather Asthma Son Breast Cancer Paternal Aunt Diabetes Paternal Aunt Social History Tobacco Use Smoking status: Never Smokeless tobacco: Never Tobacco comments: ETS exposure: Spouse and son smoke in home. Other family visitors smoke. Parents and Grandparents smoked in childhood home. Vaping Use Vaping status: Never Used Substance Use Topics Alcohol use: Not Currently Comment: social Drug use: Not Currently BP 144/84 Pulse 96 Temp 36.3 ?C (97.4 ?F) Resp 18 Wt (!) 137.2 kg (302 lb 7.5 oz) LMP 12/01/2010 (Exact Date) SpO2 97% BMI 52.47 kg/m? Review of Systems Constitutional: Positive for malaise/fatigue. Negative for chills and fever. HENT: Positive for congestion and sore throat. Negative for ear discharge, ear pain and sinus pain. Eyes: Negative for blurred vision, pain, discharge and redness. Respiratory: Positive for cough. Negative for hemoptysis, sputum production, shortness of breath, wheezing and stridor. Cardiovascular: Negative for chest pain. Gastrointestinal: Negative for abdominal pain, diarrhea, nausea and vomiting. Musculoskeletal: Positive for myalgias. Skin: Negative for itching and rash. Neurological: Positive for headaches. Negative for dizziness. Objective Physical Exam HENT: Head: Normocephalic. Jaw: No trismus, tenderness, swelling or pain on movement. Right Ear: Tympanic membrane, ear canal and external ear normal. Left Ear: Tympanic membrane, ear canal and external ear normal. Nose: Congestion present. Mouth/Throat: Mouth: Mucous membranes are moist. Pharynx: Oropharynx is clear. Uvula midline. No oropharyngeal exudate or posterior oropharyngeal erythema. Eyes: Pupils: Pupils are equal, round, and reactive to light. Cardiovascular: Rate and Rhythm: Normal rate. Pulmonary: Effort: Pulmonary effort is normal. No accessory muscle usage, respiratory distress or retractions. Breath sounds: No stridor. No wheezing, rhonchi or rales. Abdominal: Palpations: Abdomen is soft. Tenderness: There is no abdominal tenderness. There is no guarding or rebound. Musculoskeletal: Cervical back: No erythema or tenderness. No pain with movement. Normal range of motion. Lymphadenopathy: Cervical: No cervical adenopathy. Neurological: General: No focal deficit present. Mental Status: She is alert and oriented to person, place, and time. Mental status is at baseline. ASSESSMENT/PLAN: 1. URI with cough and congestion - ICD9: 465.9, ICD10: J06.9 - Discussed viral etiology and rationale for treatment. - Symptomatic treatment with prn analgesia - Supportive care with fluids and rest No evidence of bacterial infection. Treat as viral etiology. Supportive therapies sent to pharmacy. Patient was educated on supportive therapies. Patient will follow up with primary care provider as needed. Patient was instructed to immediately proceed to emergency room for any new, worsening, or symptoms lasting longer than anticipated. The patient's clinical presentation is otherwise unremarkable at this time. Based on exam and clinical finding, the patient is stable for discharge. Plan of care was discussed with patient. Patient verbalizes understanding and agrees to plan of care. This note was generated using [employer] software. It may contain errors in wording, punctuation, or spelling. Shashi Dorsey APRN.COMMERCIAL CRABBER Allergies As of Date: 05/19/2024 Noted Allergy Reaction CATS 2011 7 - Swelling Comments: rash Date Reviewed: 05/19/2024 Reviewed by: Billie Estrella MA - Fully Assessed Reason for Visit: Chest Congestion [236] Cmt: cough, headache, left ear pain, throat scratchy x 2 days Primary Visit Diagnosis:URI with cough and congestion [J06.9] Order(s):fluticasone (FLONASE ALLERGY RELIEF) 50 mcg/actuation nasal sprayUse 1 [place] in each nostril once daily.Disp: 11.1 mLRfl: 0 benzonatate (TESSALON PERLE) 100 mg capsuleTake 1 capsule by mouth three times a day as needed for cough for up to 7 days.Disp: 21 capsuleRfl: 0 Prescriptions as of 05/19/2024 - fluticasone (FLONASE ALLERGY RELIEF) 50 mcg/actuation nasal spray Use 1 [place] in each nostril once daily. - benzonatate (TESSALON PERLE) 100 mg capsule Take 1 capsule by mouth three times a day as needed for cough for up to 7 days. - rOPINIRole (REQUIP) 0.5 mg tablet Take 1 tablet by mouth daily at bedtime. Take with 1mg tab for total of 1.5mg. - rOPINIRole (REQUIP) 1 mg tablet Take 1 tablet by mouth daily at bedtime. - DULoxetine (CYMBALTA) 20 mg capsule Take 1 capsule by mouth once daily. - venlafaxine ER (EFFEXOR XR) 37.5 mg 24 hr capsule Take 1 capsule by mouth once daily. - dulaglutide (TRULICITY) 0.75 mg/0.5 mL pen injector Inject 0.75 mg subcutaneously one time a week for 28 days. - omeprazole (PRILOSEC) 20 mg capsule TAKE TWO CAPSULES BY MOUTH ONCE DAILY BEFORE BREAKFAST - cyclobenzaprine (FLEXERIL) 10 mg tablet Take 1 tablet by mouth three times a day as needed for muscle spasm. - buPROPion XL (WELLBUTRIN XL) 300 mg 24 hr tablet Take 1 tablet by mouth once daily. - celecoxib (CELEBREX) 200 mg capsule Take 1 capsule by mouth once daily. - montelukast (SINGULAIR) 10 mg tablet Take 1 tablet by mouth daily at bedtime. - cyanocobalamin (VITAMIN B-12) 1,000 mcg tab Take 1,000 mcg by mouth once daily. - cholecalciferol (VITAMIN D-3) 400 unit tab Take 400 Units by mouth once daily. - metFORMIN ER (GLUCOPHAGE XR) 500 mg 24 hr tablet Take 2 tablets by mouth daily with dinner. - mometasone-formoterol (DULERA) 200-5 mcg/actuation inhaler Inhale 2 Puffs as instructed two times a day. - loratadine (CLARITIN) 10 mg tablet Take 1 tablet by mouth once daily as needed. FOR ALLERGY SYMPTOMS - albuterol HFA (PROVENTIL HFA, VENTOLIN HFA) 90 mcg/actuation inhaler INHALE 2 PUFFS BY MOUTH EVERY 6 HOURS NEEDED FOR SHORTNESS OF BREATH AND WHEEZING - Nebulizer Accessories kit Provide 1 kit. - albuterol (PROVENTIL) 2.5 mg /3 mL (0.083 %) nebulizer solution Use 3 mL via nebulizer every 4 hours as needed for wheezing/shortness of breath. Use over 5-15minutes. - fluticasone (FLONASE) 50 mcg/actuation nasal spray Use 1 [place] in each nostril once daily. - promethazine (PHENERGAN) 25 mg tablet Take 1 tablet by mouth every 6 hours as needed. - ProAir RespiClick 90 mcg/actuation breath activated (albuterol sulfate) Inhale 2 Puffs as instructed every 6 hours as needed. Problem List As Of Date 05/19/2024 Noted Resolved Shortness of breath [R06.02] 01/13/2011 Pneumonia, organism unspecified [J18.9] 07/15/2006 01/13/2011 Acute respiratory failure [J96.00] 07/15/2006 01/13/2011 ACUTE URI NOS [J06.9] 08/07/2007 09/10/2008 Gastroesophageal reflux disease without esophag*09/10/2008 Allergic rhinitis [J30.9] 09/10/2008 Moderate persistent asthma without complication*12/11/2008 Environmental allergies [Z91.09] Obesity, Class III, BMI >= 40 (morbid obesity) *12/03/2016 Irritable mood [R45.4] 03/04/2018 Post menopausal syndrome [N95.1] 03/04/2018 Tonsil asymmetry [J35.8] 03/04/2018 Encounter for screening for diabetes mellitus [*03/04/2018 Well adult exam [Z00.00] 09/01/2018 Medication management [Z79.899] 09/01/2018 Arthritis of knee [M17.10] 10/30/2020 Restless leg syndrome [G25.81] 10/30/2020 COVID-19 virus infection [U07.1] 10/14/2021 Fatty liver [K76.0] 01/04/2022 Liver cyst [K76.89] 01/08/2022 Situational depression [F43.21] 09/28/2022 DRE (obstructive sleep apnea) [G47.33] 11/01/2023 Class 3 severe obesity with serious comorbidity*12/21/2023 Hyperinsulinemia [E16.1] 12/21/2023 Acute right-sided thoracic back pain [M54.6] 04/27/2024 Prescriptions ordered this encounter Disp Refills Start End FLUTICASONE PROPIONATE 50 MCG/ACTUAT* 11.1* 0 05/19/2024 Route: EACH NOSTRIL Sig: Use 1 [place] in each nostril once daily. BENZONATATE 100 MG CAPSULE 21 c* 0 05/19/2024 05/26/2024 Route: ORAL Sig: Take 1 capsule by mouth three times a day as needed for cough for up to 7 days. Level of Service: OFFICE/OUTPATIENT ESTABLISHED MOD [facility] 30 MIN [06747] Encounter Status:Closed by SHASHI DORSEY on 05/19/24 THERAPY NT Observed: 05/11/2024 11:29 AM Status: COMPLETED Source: [facility] HNO ID: [id number] Author: DEENA SU, PT Service: ? Author Type: Physical Therapist Type: Therapy (PT/OT/Speech/Resp) Filed: 05/11/2024 11:29 Note Text: Program_ID:[id number] Access Code: [email or web address] URL: [email or web address] Date: 05-11-2024 Prepared By: Deena Su Program Notes Exercises - Standing Shoulder Row with Anchored Resistance - 1 x daily - 7 x weekly - 3 sets - 15 reps - Standing Shoulder External Rotation with Resistance - 1 x daily - 7 x weekly - 1 sets - 3 reps - Standing Thoracic Open Book at Wall - 2 x daily - 7 x weekly - 4 sets - 20 reps - Seated Thoracic Lumbar Extension with Pectoralis Stretch - 2 x daily - 7 x weekly - 3-4 sets - 10 reps - Seated Thoracic Flexion and Rotation with [place] Ball - 2 x daily - 7 x weekly - 3 sets - reps CNTHERAPY Observed: 05/11/2024 11:15 AM Status: COMPLETED Source: [facility] OT/PT/Speech Visit (PTWS) BONECINTHYA LOPEZ ([id number]) 1970 F NFR Date Time Provider Department 05/11/24 11:15 AM DEENA SU Date Time Provider Department Center 05/11/2024 11:15 AM [id number] SU Reason for Visit: Physical Therapy [503] Primary Visit Diagnosis:Acute right-sided thoracic back pain [M54.6] Allergies As of Date: 05/11/2024 Noted Allergy Reaction CATS 2011 7 - Swelling Comments: rash Date Reviewed: 04/27/2024 Reviewed by: Efrain Wright MA - Fully Assessed Prescriptions as of 05/11/2024 - rOPINIRole (REQUIP) 0.5 mg tablet Take 1 tablet by mouth daily at bedtime. Take with 1mg tab for total of 1.5mg. - rOPINIRole (REQUIP) 1 mg tablet Take 1 tablet by mouth daily at bedtime. - DULoxetine (CYMBALTA) 20 mg capsule Take 1 capsule by mouth once daily. - venlafaxine ER (EFFEXOR XR) 37.5 mg 24 hr capsule Take 1 capsule by mouth once daily. - dulaglutide (TRULICITY) 0.75 mg/0.5 mL pen injector Inject 0.75 mg subcutaneously one time a week for 28 days. - omeprazole (PRILOSEC) 20 mg capsule TAKE TWO CAPSULES BY MOUTH ONCE DAILY BEFORE BREAKFAST - cyclobenzaprine (FLEXERIL) 10 mg tablet Take 1 tablet by mouth three times a day as needed for muscle spasm. - buPROPion XL (WELLBUTRIN XL) 300 mg 24 hr tablet Take 1 tablet by mouth once daily. - celecoxib (CELEBREX) 200 mg capsule Take 1 capsule by mouth once daily. - montelukast (SINGULAIR) 10 mg tablet Take 1 tablet by mouth daily at bedtime. - cyanocobalamin (VITAMIN B-12) 1,000 mcg tab Take 1,000 mcg by mouth once daily. - cholecalciferol (VITAMIN D-3) 400 unit tab Take 400 Units by mouth once daily. - metFORMIN ER (GLUCOPHAGE XR) 500 mg 24 hr tablet Take 2 tablets by mouth daily with dinner. - mometasone-formoterol (DULERA) 200-5 mcg/actuation inhaler Inhale 2 Puffs as instructed two times a day. - loratadine (CLARITIN) 10 mg tablet Take 1 tablet by mouth once daily as needed. FOR ALLERGY SYMPTOMS - albuterol HFA (PROVENTIL HFA, VENTOLIN HFA) 90 mcg/actuation inhaler INHALE 2 PUFFS BY MOUTH EVERY 6 HOURS NEEDED FOR SHORTNESS OF BREATH AND WHEEZING - Nebulizer Accessories kit Provide 1 kit. - albuterol (PROVENTIL) 2.5 mg /3 mL (0.083 %) nebulizer solution Use 3 mL via nebulizer every 4 hours as needed for wheezing/shortness of breath. Use over 5-15minutes. - fluticasone (FLONASE) 50 mcg/actuation nasal spray Use 1 [place] in each nostril once daily. - promethazine (PHENERGAN) 25 mg tablet Take 1 tablet by mouth every 6 hours as needed. - ProAir RespiClick 90 mcg/actuation breath activated (albuterol sulfate) Inhale 2 Puffs as instructed every 6 hours as needed. Collar Closer Lockstitch: Addendum Therapy (PT/OT/Speech/Resp) ID: [id number] 05/11/2024 11:29 AM Author: DEENA SU Signed by DEENA SU PT on 05/11/2024 at 11:29 AM * * * This document replaces document [id number] * * * Document text: Program_ID:[id number] Access Code: [email or web address] URL: [email or web address] Date: 05-11-2024 Prepared By: Deena Su Program Notes Exercises - Standing Shoulder Row with Anchored Resistance - 1 x daily - 7 x weekly - 3 sets - 15 reps - Standing Shoulder External Rotation with Resistance - 1 x daily - 7 x weekly - 1 sets - 3 reps - Standing Thoracic Open Book at Wall - 2 x daily - 7 x weekly - 4 sets - 20 reps - Seated Thoracic Lumbar Extension with Pectoralis Stretch - 2 x daily - 7 x weekly - 3-4 sets - 10 reps - Seated Thoracic Flexion and Rotation with [place] Ball - 2 x daily - 7 x weekly - 3 sets - reps PROGRESS Observed: 05/11/2024 11:02 AM Status: COMPLETED Source: [facility] HNO ID: [id number] Author: DEENA SU PT Service: ? Author Type: Physical Therapist Type: Progress Notes Filed: 05/11/2024 11:30 Note Text: Episode Visit Count: 2 Therapist That Will Accept/Oversee The Plan Of Care: Deena Su Start of Care Date: 04/27/24 Onset Date: (for awhile) Plan of Care Certification Date: 04/27/24 Next Certification Due Date: 06/08/24 REHABILITATION AND SPORTS THERAPY PHYSICAL THERAPY TREATMENT NOTE ASSESSMENT: Cinthya Bone tolerated the session with expected muscle soreness. She demonstrated improvements in thoracic rotation R with less symptoms as a result of exercises today. The patient will continue to benefit from ongoing skilled physical therapy to progress toward set goals. PLAN FOR NEXT VISIT: assess symptom response to HEP, adding in thoracic rotation stretching. Continue scapular stabilization strengthening SUBJECTIVE: Pt. completed the exercises but reports they helped maybe a bit. Back continues to hurt. Patient Goals: reduce R side thoracic back pain Pain: Pain Pain Level: 4 Pain Location: Thoracic Spine - Right Description: Aching Post Treatment Pain Post Treatment Pain Level: 2 Post Treatment Pain Location: Thoracic Spine OBJECTIVE MEASURES WITH LEVEL OF FUNCTION: TREATMENT: Therapeutic Exercise: 1: seated pully's alternating UE's flexion, scaption, abduction 1 minute each 2x (cues to avoid lumbar spine compensatory movement) 2: seated UT stretch 1x30 sec each side 3: *Access Code: [email or web address] URL: [email or web address] Date: 05/11/2024 Prepared by: Deena Su Exercises - Standing Shoulder Row with Anchored Resistance - 1 x daily - 7 x weekly - 3 sets - 15 reps - Standing Shoulder External Rotation with Resistance - 1 x daily - 7 x weekly - 1 sets - 3 reps - 30 hold - Standing Thoracic Open Book at Wall - 2 x daily - 7 x weekly - 4 sets - 20 reps - Seated Thoracic Lumbar Extension with Pectoralis Stretch - 2 x daily - 7 x weekly - 3-4 sets - 10 reps - 5 hold - Seated Thoracic Flexion and Rotation with [place] Ball - 2 x daily - 7 x weekly - 3 sets - 30 hold 4: seated rotation 1x5 each direction, painful with thoracic rotation R 5: seated levator scapulae stretch 3x30 sec each side Skilled Intervention: Patient was educated in proper exercise technique and purpose for exercises. Skilled judgment was used in selection of appropriate interventions. Provided written instruction for home exercise program to facilitate proper performance and compliance. Correct performance of therapeutic exercises was facilitated with verbal, visual, and tactile cuing. Educated patient on rationale for performing exercises in regards to increase ease of ADL and ROM and function . Patient education as noted. Billing Therapeutic Exercise Treatment Minutes: 28 Skilled Treatment Time Minutes (timed and untimed codes): 28 Total Session Time (minutes): 28 Session Start Time : 1102 Session Stop Time : 1130 Deena Su, PT CNOV Observed: 04/27/2024 9:40 AM Status: COMPLETED Source: [facility] CINTHYA BONE ([id number]) 1970 F JENIFFER Date Time Provider Department 04/27/24 9:40 AM JUAN C LOPEZ During your visit today, we recorded the following information about you: Pulse Blood pressure Weight 90/minute 145/78 140 kg Juan C Lopez, CRIMINAL RESEARCHER.COMMERCIAL CRABBER 04/27/2024 9:46 AM Signed Chief Complaint No chief complaint on file. HPI Cinthya Bone is a 53 year old female who presents here today for Above Complaints. Patient presents for routine follow up. Patient was seen 03/09 and at that time her cymbalta was increased along with increasing her ropinirole. Patient reports she does not feel like the cymbalta is working. Patient would like to try something else. Past medical history, appointments, medications, allergies reviewed. Previous Medical History PAST MEDICAL HISTORY Diagnosis Date Allergic rhinitis, cause unspecified 09/10/2008 Arthritis Arthritis of knee 10/30/2020 Asthma Benign neoplasm of left breast 2018 COVID-19 virus infection 10/14/2021 10/14/2021 Environmental allergies Never formally tested. Sneezes, itches around cats. Excessive or frequent menstruation Heavy periods Fatty liver 01/04/2022 Noted on US 12/2021 Gastroesophageal reflux disease without esophagitis 09/10/2008 Hemorrhage of gastrointestinal tract, unspecified 05/10/2014 Irregular menstrual cycle Irregular periods Liver cyst 01/08/2022 MRI: 12/2021 Mild persistent asthma without complication 12/11/2008 Obesity, Class III, BMI >= 40 (morbid obesity) E66.01 12/03/2016 Pneumonia 2008 Required intubation Restless leg syndrome 10/30/2020 Shortness of breath 2007 Was on a ventolator with pneumonia Situational depression 09/28/2022 Tonsil asymmetry 03/04/2018 Lt at 2+ Rt normal. chronic Well adult exam 09/01/2018 Done 10/30/2020 Previous Surgical History PAST SURGICAL HISTORY Procedure Laterality Date COLONOSCOPY FLX DX W/COLLJ SPEC WHEN PFRMD 05/10/2014 Colonoscopy EXC BREAST LES PREOP PLMT RAD MARKER OPEN 1 LES Left 01/05/2019 HYSTEROSCOPY, DIAGNOSTIC (SEPARATE 06/2010 Hysteroscopy AND curettage INCISE FINGER TENDON SHEATH Right 06/04/2020 Right ring trigger finger LIG/TRNSXJ FLP TUBE ABDL/VAG APPR UNI/BI Tubal ligation VAGINAL HYSTERECTOMY UTERUS 250 GM/< 12/08/2010 TVH Family History FAMILY HISTORY Problem Relation Age of Onset Obesity Mother Cancer Father Stomach Heart Attack Brother 52 Obesity Brother Hypertension Brother Obesity Maternal Grandmother Obesity Maternal Grandfather Heart Paternal Grandmother COPD Paternal Grandmother Emphysema. Smoker. Obesity Paternal Grandmother Obesity Paternal Grandfather Asthma Son Breast Cancer Paternal Aunt Diabetes Paternal Aunt Patient Allergies ALLERGIES Allergen Reactions Cats Swelling rash Current Medications Current Outpatient Medications on File Prior to Visit Medication Sig dulaglutide (TRULICITY) 0.75 mg/0.5 mL pen injector Inject 0.75 mg subcutaneously one time a week for 28 days. DULoxetine (CYMBALTA) 30 mg capsule Take 1 capsule by mouth once daily. rOPINIRole (REQUIP) 0.5 mg tablet Take 1 tablet by mouth daily at bedtime. Take with 1mg tab for total of 1.5mg. rOPINIRole (REQUIP) 1 mg tablet Take 1 tablet by mouth daily at bedtime. omeprazole (PRILOSEC) 20 mg capsule TAKE TWO CAPSULES BY MOUTH ONCE DAILY BEFORE BREAKFAST cyclobenzaprine (FLEXERIL) 10 mg tablet Take 1 tablet by mouth three times a day as needed for muscle spasm. buPROPion XL (WELLBUTRIN XL) 300 mg 24 hr tablet Take 1 tablet by mouth once daily. celecoxib (CELEBREX) 200 mg capsule Take 1 capsule by mouth once daily. montelukast (SINGULAIR) 10 mg tablet Take 1 tablet by mouth daily at bedtime. cyanocobalamin (VITAMIN B-12) 1,000 mcg tab Take 1,000 mcg by mouth once daily. cholecalciferol (VITAMIN D-3) 400 unit tab Take 400 Units by mouth once daily. metFORMIN ER (GLUCOPHAGE XR) 500 mg 24 hr tablet Take 2 tablets by mouth daily with dinner. mometasone-formoterol (DULERA) 200-5 mcg/actuation inhaler Inhale 2 Puffs as instructed two times a day. loratadine (CLARITIN) 10 mg tablet Take 1 tablet by mouth once daily as needed. FOR ALLERGY SYMPTOMS albuterol HFA (PROVENTIL HFA, VENTOLIN HFA) 90 mcg/actuation inhaler INHALE 2 PUFFS BY MOUTH EVERY 6 HOURS NEEDED FOR SHORTNESS OF BREATH AND WHEEZING Nebulizer Accessories kit Provide 1 kit. albuterol (PROVENTIL) 2.5 mg /3 mL (0.083 %) nebulizer solution Use 3 mL via nebulizer every 4 hours as needed for wheezing/shortness of breath. Use over 5-15minutes. fluticasone (FLONASE) 50 mcg/actuation nasal spray Use 1 [place] in each nostril once daily. promethazine (PHENERGAN) 25 mg tablet Take 1 tablet by mouth every 6 hours as needed. ProAir RespiClick 90 mcg/actuation breath activated (albuterol sulfate) Inhale 2 Puffs as instructed every 6 hours as needed. No current facility-administered medications on file prior to visit. Social History Social History Tobacco Use Smoking status: Never Smokeless tobacco: Never Tobacco comments: ETS exposure: Spouse and son smoke in home. Other family visitors smoke. Parents and Grandparents smoked in childhood home. Vaping Use Vaping status: Never Used Substance Use Topics Alcohol use: Not Currently Comment: social Drug use: Not Currently Review of Symptoms REVIEW OF SYSTEMS SEE HPI EXAM: BP 145/78 Pulse 90 Wt (!) 140 kg (308 lb 10.3 oz) LMP 12/01/2010 (Exact Date) BMI 53.54 kg/m? General Appearance: Well appearing, alert, in no acute distress, well-hydrated, well nourished.. Lungs: Lungs clear to auscultation. No wheezing, rhonchi, rales.. Heart: RRR without murmur, gallop, or rubs. No ectopy. Peripheral Pulses: Normal. Health Maintenance List Anxiety Screening Never done Shingrix Vaccine(1 of 2) Never done DTaP,Tdap,Td Vaccine(3 - Td or Tdap) due on 03/11/2023 Covid-19 Vaccine(3 - season) due on 10/23/2023 Colorectal Cancer Screening due on 05/10/2024 Mammogram Screening due on 08/07/2024 Annual PCP Team Chronic Disease Visit due on 03/09/2025 Diabetes Screening due on 04/27/2027 Lipid Screening due on 11/06/2028 Hepatitis B Vaccine Completed Spirometry Completed Influenza Vaccine Completed Hepatitis C Screening Completed Pneumococcal Vaccine: 50+ Completed Cervical Cancer Screening Discontinued HIV Screening Discontinued PHQ-9 More data exists 10/10/2023 01/03/2024 02/27/2024 03/09/2024 04/16/2024 PHQ-9 Scores Little interest or pleasure in doing things: More than half the days Not at all Several days Nearly every day Several days Feeling down, depressed, or hopeless: More than half the days Not at all Not at all Nearly every day Several days Trouble falling or staying asleep, or sleeping too much Several days Not at all Several days Nearly every day Several days Feeling tired or having little energy Several days Not at all Several days More than half the days Several days Poor appetite or overeating Not at all Several days Several days Nearly every day Several days Feeling bad about yourself - or that you are a failure or have let yourself or your family down Several days Not at all Not at all More than half the days Several days Trouble concentrating on things, such as reading the newspaper or watching television Several days Not at all Not at all More than half the days Several days Moving or speaking so slowly that other people could have noticed. Or the opposite - being so fidgety or restless that you have been moving around a lot more than usual Several days Not at all Not at all Several days - Thoughts that you would be better off , or of hurting yourself in some way More than half the days Not at all Not at all Several days Several days PHQ-9 Score 11 1 4 20 - NADIRA-7 More data may exist 12/19/2017 08/26/2022 08/29/2023 03/09/2024 04/27/2024 NADIRA-7 All Questions Feeling nervous, anxious, or on edge Several days Several days Several days More than half the days Several days Not being able to stop or control worrying Several days More than half the days Several days More than half the days More than half the days Worrying too much about different things - Several days Several days More than half the days More than half the days Trouble relaxing - More than half the days More than half the days Nearly Everyday More than half the days Being so restless that it is hard to sit still - Not at all Several days More than half the days More than half the days Becoming easily annoyed or irritable - Several days Several days More than half the days More than half the days Feeling afraid, as if something awful might happen - Not at all Several days Several days Several days NADIRA-7 Score - 7 8 14 12 ASSESSMENT/PLAN: 1. Situational depression - ICD9: 309.0, ICD10: F43.21 (primary diagnosis) - VENLAFAXINE ER 37.5 MG CAPSULE,EXTENDED RELEASE 24 HR - DULOXETINE 20 MG CAPSULE,DELAYED RELEASE - VENLAFAXINE ER 37.5 MG CAPSULE,EXTENDED RELEASE 24 HR 2. NADIRA (generalized anxiety disorder) - ICD9: 300.02, ICD10: F41.1 - VENLAFAXINE ER 37.5 MG CAPSULE,EXTENDED RELEASE 24 HR - DULOXETINE 20 MG CAPSULE,DELAYED RELEASE - VENLAFAXINE ER 37.5 MG CAPSULE,EXTENDED RELEASE 24 HR 3. Restless leg syndrome - ICD9: 333.94, ICD10: G25.81 - ROPINIROLE 0.5 MG TABLET - ROPINIROLE 1 MG TABLET Juan C Lopez APRN.[employer] Allergies As of Date: 04/27/2024 Noted Allergy Reaction CATS 2011 7 - Swelling Comments: rash Date Reviewed: 04/27/2024 Reviewed by: Efrain Wright MA - Fully Assessed Primary Visit Diagnosis:Situational depression [F43.21] Other Visit Diagnoses:NADIRA (generalized anxiety disorder) [F41.1] Restless leg syndrome [G25.81] Elevated BP without diagnosis of hypertension [R03.0] Order(s):rOPINIRole (REQUIP) 0.5 mg tabletTake 1 tablet by mouth daily at bedtime. Take with 1mg tab for total of 1.5mg.Disp: 90 tabletRfl: 1 rOPINIRole (REQUIP) 1 mg tabletTake 1 tablet by mouth daily at bedtime.Disp: 90 tabletRfl: 1 DULoxetine (CYMBALTA) 20 mg capsuleTake 1 capsule by mouth once daily.Disp: 30 capsuleRfl: 0 venlafaxine ER (EFFEXOR XR) 37.5 mg 24 hr capsuleTake 1 capsule by mouth once daily.Disp: 60 capsuleRfl: 0 Blood Pressure Test Kit-Large (QUICK RESPONSE BP MONITOR)1 Each one time only for 1 dose.Disp: 1 EachRfl: 0 Prescriptions as of 04/27/2024 - rOPINIRole (REQUIP) 0.5 mg tablet Take 1 tablet by mouth daily at bedtime. Take with 1mg tab for total of 1.5mg. - rOPINIRole (REQUIP) 1 mg tablet Take 1 tablet by mouth daily at bedtime. - DULoxetine (CYMBALTA) 20 mg capsule Take 1 capsule by mouth once daily. - venlafaxine ER (EFFEXOR XR) 37.5 mg 24 hr capsule Take 1 capsule by mouth once daily. - Blood Pressure Test Kit-Large (QUICK RESPONSE BP MONITOR) 1 Each one time only for 1 dose. - dulaglutide (TRULICITY) 0.75 mg/0.5 mL pen injector Inject 0.75 mg subcutaneously one time a week for 28 days. - omeprazole (PRILOSEC) 20 mg capsule TAKE TWO CAPSULES BY MOUTH ONCE DAILY BEFORE BREAKFAST - cyclobenzaprine (FLEXERIL) 10 mg tablet Take 1 tablet by mouth three times a day as needed for muscle spasm. - buPROPion XL (WELLBUTRIN XL) 300 mg 24 hr tablet Take 1 tablet by mouth once daily. - celecoxib (CELEBREX) 200 mg capsule Take 1 capsule by mouth once daily. - montelukast (SINGULAIR) 10 mg tablet Take 1 tablet by mouth daily at bedtime. - cyanocobalamin (VITAMIN B-12) 1,000 mcg tab Take 1,000 mcg by mouth once daily. - cholecalciferol (VITAMIN D-3) 400 unit tab Take 400 Units by mouth once daily. - metFORMIN ER (GLUCOPHAGE XR) 500 mg 24 hr tablet Take 2 tablets by mouth daily with dinner. - mometasone-formoterol (DULERA) 200-5 mcg/actuation inhaler Inhale 2 Puffs as instructed two times a day. - loratadine (CLARITIN) 10 mg tablet Take 1 tablet by mouth once daily as needed. FOR ALLERGY SYMPTOMS - albuterol HFA (PROVENTIL HFA, VENTOLIN HFA) 90 mcg/actuation inhaler INHALE 2 PUFFS BY MOUTH EVERY 6 HOURS NEEDED FOR SHORTNESS OF BREATH AND WHEEZING - Nebulizer Accessories kit Provide 1 kit. - albuterol (PROVENTIL) 2.5 mg /3 mL (0.083 %) nebulizer solution Use 3 mL via nebulizer every 4 hours as needed for wheezing/shortness of breath. Use over 5-15minutes. - fluticasone (FLONASE) 50 mcg/actuation nasal spray Use 1 [place] in each nostril once daily. - promethazine (PHENERGAN) 25 mg tablet Take 1 tablet by mouth every 6 hours as needed. - ProAir RespiClick 90 mcg/actuation breath activated (albuterol sulfate) Inhale 2 Puffs as instructed every 6 hours as needed. Problem List As Of Date 04/27/2024 Noted Resolved Shortness of breath [R06.02] 01/13/2011 Pneumonia, organism unspecified [J18.9] 07/15/2006 01/13/2011 Acute respiratory failure [J96.00] 07/15/2006 01/13/2011 ACUTE URI NOS [J06.9] 08/07/2007 09/10/2008 Gastroesophageal reflux disease without esophag*09/10/2008 Allergic rhinitis [J30.9] 09/10/2008 Moderate persistent asthma without complication*12/11/2008 Environmental allergies [Z91.09] Obesity, Class III, BMI >= 40 (morbid obesity) *12/03/2016 Irritable mood [R45.4] 03/04/2018 Post menopausal syndrome [N95.1] 03/04/2018 Tonsil asymmetry [J35.8] 03/04/2018 Encounter for screening for diabetes mellitus [*03/04/2018 Well adult exam [Z00.00] 09/01/2018 Medication management [Z79.899] 09/01/2018 Arthritis of knee [M17.10] 10/30/2020 Restless leg syndrome [G25.81] 10/30/2020 COVID-19 virus infection [U07.1] 10/14/2021 Fatty liver [K76.0] 01/04/2022 Liver cyst [K76.89] 01/08/2022 Situational depression [F43.21] 09/28/2022 DRE (obstructive sleep apnea) [G47.33] 11/01/2023 Class 3 severe obesity with serious comorbidity*12/21/2023 Hyperinsulinemia [E16.1] 12/21/2023 Acute right-sided thoracic back pain [M54.6] 04/27/2024 Prescriptions ordered this encounter Disp Refills Start End VENLAFAXINE ER 37.5 MG CAPSULE,EXTEN* 90 c* 1 04/27/2024 04/27/2024 Route: ORAL Sig: Take 1 capsule by mouth once daily. ROPINIROLE 0.5 MG TABLET 90 t* 1 04/27/2024 Route: ORAL Sig: Take 1 tablet by mouth daily at bedtime. Take with 1mg tab for total of 1.5mg. ROPINIROLE 1 MG TABLET 90 t* 1 04/27/2024 Route: ORAL Sig: Take 1 tablet by mouth daily at bedtime. DULOXETINE 20 MG CAPSULE,DELAYED REL* 30 c* 0 04/27/2024 Route: ORAL Sig: Take 1 capsule by mouth once daily. VENLAFAXINE ER 37.5 MG CAPSULE,EXTEN* 60 c* 0 04/27/2024 Route: ORAL Sig: Take 1 capsule by mouth once daily. BLOOD PRESSURE TEST KIT-LARGE CUFF 1 Ea* 0 04/27/2024 04/27/2024 Route: [facility] Each one time only for 1 dose. Medications Discontinued During This Encounter Prescriptions - DULoxetine (CYMBALTA) 30 mg capsule (Discontinued) Take 1 capsule by mouth once daily. - rOPINIRole (REQUIP) 0.5 mg tablet (Discontinued) Take 1 tablet by mouth daily at bedtime. Take with 1mg tab for total of 1.5mg. - rOPINIRole (REQUIP) 1 mg tablet (Discontinued) Take 1 tablet by mouth daily at bedtime. - venlafaxine ER (EFFEXOR XR) 37.5 mg 24 hr capsule (Discontinued) Take 1 capsule by mouth once daily. Disposition: Return in about 6 weeks (around 06/08/2024). Follow-up and Disposition History for Encounter Date Provider Department Center 04/27/2024 [id number]-AOFKDLJUAN C LOPEZ [facility] Encounter Status:Closed by JUAN C LOPEZ on 04/27/24 PROGRESS Observed: 04/27/2024 9:18 AM Status: COMPLETED Source: [facility] ID: [id number] Author: JUAN C LOPEZ APRN.[facility] Service: ? Author Type: Nurse Practitioner Type: Progress Notes Filed: 04/27/2024 09:46 Note Text: Chief Complaint No chief complaint on file. JOÃO Bone is a 53 year old female who presents here today for Above Complaints. Patient presents for routine follow up. Patient was seen 03/09 and at that time her cymbalta was increased along with increasing her ropinirole. Patient reports she does not feel like the cymbalta is working. Patient would like to try something else. Past medical history, appointments, medications, allergies reviewed. Previous Medical History PAST MEDICAL HISTORY Diagnosis Date Allergic rhinitis, cause unspecified 09/10/2008 Arthritis Arthritis of knee 10/30/2020 Asthma Benign neoplasm of left breast 2019 COVID-19 virus infection 10/14/2021 10/14/2021 Environmental allergies Never formally tested. Sneezes, itches around cats. Excessive or frequent menstruation Heavy periods Fatty liver 01/04/2022 Noted on US 12/2021 Gastroesophageal reflux disease without esophagitis 09/10/2008 Hemorrhage of gastrointestinal tract, unspecified 05/10/2014 Irregular menstrual cycle Irregular periods Liver cyst 01/08/2022 MRI: 12/2021 Mild persistent asthma without complication 12/11/2008 Obesity, Class III, BMI >= 40 (morbid obesity) E66.01 12/03/2016 Pneumonia 2008 Required intubation Restless leg syndrome 10/30/2020 Shortness of breath 2006 Was on a ventolator with pneumonia Situational depression 09/28/2022 Tonsil asymmetry 03/04/2018 Lt at 2+ Rt normal. chronic Well adult exam 09/01/2018 Done 10/30/2020 Previous Surgical History PAST SURGICAL HISTORY Procedure Laterality Date COLONOSCOPY FLX DX W/COLLJ SPEC WHEN PFRMD 05/10/2014 Colonoscopy EXC BREAST LES PREOP PLMT RAD MARKER OPEN 1 LES Left 01/05/2019 HYSTEROSCOPY, DIAGNOSTIC (SEPARATE 06/2010 Hysteroscopy AND curettage INCISE FINGER TENDON SHEATH Right 06/04/2020 Right ring trigger finger LIG/TRNSXJ FLP TUBE ABDL/VAG APPR UNI/BI Tubal ligation VAGINAL HYSTERECTOMY UTERUS 250 GM/< 12/08/2010 TVH Family History FAMILY HISTORY Problem Relation Age of Onset Obesity Mother Cancer Father Stomach Heart Attack Brother 52 Obesity Brother Hypertension Brother Obesity Maternal Grandmother Obesity Maternal Grandfather Heart Paternal Grandmother COPD Paternal Grandmother Emphysema. Smoker. Obesity Paternal Grandmother Obesity Paternal Grandfather Asthma Son Breast Cancer Paternal Aunt Diabetes Paternal Aunt Patient Allergies ALLERGIES Allergen Reactions Cats Swelling rash Current Medications Current Outpatient Medications on File Prior to Visit Medication Sig dulaglutide (TRULICITY) 0.75 mg/0.5 mL pen injector Inject 0.75 mg subcutaneously one time a week for 28 days. DULoxetine (CYMBALTA) 30 mg capsule Take 1 capsule by mouth once daily. rOPINIRole (REQUIP) 0.5 mg tablet Take 1 tablet by mouth daily at bedtime. Take with 1mg tab for total of 1.5mg. rOPINIRole (REQUIP) 1 mg tablet Take 1 tablet by mouth daily at bedtime. omeprazole (PRILOSEC) 20 mg capsule TAKE TWO CAPSULES BY MOUTH ONCE DAILY BEFORE BREAKFAST cyclobenzaprine (FLEXERIL) 10 mg tablet Take 1 tablet by mouth three times a day as needed for muscle spasm. buPROPion XL (WELLBUTRIN XL) 300 mg 24 hr tablet Take 1 tablet by mouth once daily. celecoxib (CELEBREX) 200 mg capsule Take 1 capsule by mouth once daily. montelukast (SINGULAIR) 10 mg tablet Take 1 tablet by mouth daily at bedtime. cyanocobalamin (VITAMIN B-12) 1,000 mcg tab Take 1,000 mcg by mouth once daily. cholecalciferol (VITAMIN D-3) 400 unit tab Take 400 Units by mouth once daily. metFORMIN ER (GLUCOPHAGE XR) 500 mg 24 hr tablet Take 2 tablets by mouth daily with dinner. mometasone-formoterol (DULERA) 200-5 mcg/actuation inhaler Inhale 2 Puffs as instructed two times a day. loratadine (CLARITIN) 10 mg tablet Take 1 tablet by mouth once daily as needed. FOR ALLERGY SYMPTOMS albuterol HFA (PROVENTIL HFA, VENTOLIN HFA) 90 mcg/actuation inhaler INHALE 2 PUFFS BY MOUTH EVERY 6 HOURS NEEDED FOR SHORTNESS OF BREATH AND WHEEZING Nebulizer Accessories kit Provide 1 kit. albuterol (PROVENTIL) 2.5 mg /3 mL (0.083 %) nebulizer solution Use 3 mL via nebulizer every 4 hours as needed for wheezing/shortness of breath. Use over 5-15minutes. fluticasone (FLONASE) 50 mcg/actuation nasal spray Use 1 [place] in each nostril once daily. promethazine (PHENERGAN) 25 mg tablet Take 1 tablet by mouth every 6 hours as needed. ProAir RespiClick 90 mcg/actuation breath activated (albuterol sulfate) Inhale 2 Puffs as instructed every 6 hours as needed. No current facility-administered medications on file prior to visit. Social History Social History Tobacco Use Smoking status: Never Smokeless tobacco: Never Tobacco comments: ETS exposure: Spouse and son smoke in home. Other family visitors smoke. Parents and Grandparents smoked in childhood home. Vaping Use Vaping status: Never Used Substance Use Topics Alcohol use: Not Currently Comment: social Drug use: Not Currently Review of Symptoms REVIEW OF SYSTEMS SEE HPI EXAM: BP 145/78 Pulse 90 Wt (!) 140 kg (308 lb 10.3 oz) LMP 12/01/2010 (Exact Date) BMI 53.54 kg/m? General Appearance: Well appearing, alert, in no acute distress, well-hydrated, well nourished.. Lungs: Lungs clear to auscultation. No wheezing, rhonchi, rales.. Heart: RRR without murmur, gallop, or rubs. No ectopy. Peripheral Pulses: Normal. Health Maintenance List Anxiety Screening Never done Shingrix Vaccine(1 of 2) Never done DTaP,Tdap,Td Vaccine(3 - Td or Tdap) due on 03/11/2023 Covid-19 Vaccine() due on 10/23/2023 Colorectal Cancer Screening due on 05/10/2024 Mammogram Screening due on 08/07/2024 Annual PCP Team Chronic Disease Visit due on 03/09/2025 Diabetes Screening due on 04/27/2027 Lipid Screening due on 11/06/2028 Hepatitis B Vaccine Completed Spirometry Completed Influenza Vaccine Completed Hepatitis C Screening Completed Pneumococcal Vaccine: 50+ Completed Cervical Cancer Screening Discontinued HIV Screening Discontinued PHQ-9 More data exists 10/10/2023 01/03/2024 02/27/2024 03/09/2024 04/16/2024 PHQ-9 Scores Little interest or pleasure in doing things: More than half the days Not at all Several days Nearly every day Several days Feeling down, depressed, or hopeless: More than half the days Not at all Not at all Nearly every day Several days Trouble falling or staying asleep, or sleeping too much Several days Not at all Several days Nearly every day Several days Feeling tired or having little energy Several days Not at all Several days More than half the days Several days Poor appetite or overeating Not at all Several days Several days Nearly every day Several days Feeling bad about yourself - or that you are a failure or have let yourself or your family down Several days Not at all Not at all More than half the days Several days Trouble concentrating on things, such as reading the newspaper or watching television Several days Not at all Not at all More than half the days Several days Moving or speaking so slowly that other people could have noticed. Or the opposite - being so fidgety or restless that you have been moving around a lot more than usual Several days Not at all Not at all Several days - Thoughts that you would be better off , or of hurting yourself in some way More than half the days Not at all Not at all Several days Several days PHQ-9 Score 11 1 4 20 - NADIRA-7 More data may exist 12/19/2017 08/26/2022 08/29/2023 03/09/2024 04/27/2024 NADIRA-7 All Questions Feeling nervous, anxious, or on edge Several days Several days Several days More than half the days Several days Not being able to stop or control worrying Several days More than half the days Several days More than half the days More than half the days Worrying too much about different things - Several days Several days More than half the days More than half the days Trouble relaxing - More than half the days More than half the days Nearly Everyday More than half the days Being so restless that it is hard to sit still - Not at all Several days More than half the days More than half the days Becoming easily annoyed or irritable - Several days Several days More than half the days More than half the days Feeling afraid, as if something awful might happen - Not at all Several days Several days Several days NADIRA-7 Score - 7 8 14 12 ASSESSMENT/PLAN: 1. Situational depression - ICD9: 309.0, ICD10: F43.21 (primary diagnosis) - VENLAFAXINE ER 37.5 MG CAPSULE,EXTENDED RELEASE 24 HR - DULOXETINE 20 MG CAPSULE,DELAYED RELEASE - VENLAFAXINE ER 37.5 MG CAPSULE,EXTENDED RELEASE 24 HR 2. NADIRA (generalized anxiety disorder) - ICD9: 300.02, ICD10: F41.1 - VENLAFAXINE ER 37.5 MG CAPSULE,EXTENDED RELEASE 24 HR - DULOXETINE 20 MG CAPSULE,DELAYED RELEASE - VENLAFAXINE ER 37.5 MG CAPSULE,EXTENDED RELEASE 24 HR 3. Restless leg syndrome - ICD9: 333.94, ICD10: G25.81 - ROPINIROLE 0.5 MG TABLET - ROPINIROLE 1 MG TABLET Juan C Lopez APRN.[employer] [id number] Observed: 04/27/2024 8:10 AM Status: COMPLETED Source: [facility] HNO ID: [id number] Author: DEENA SU PT Service: ? Author Type: Physical Therapist Type: [id number] Filed: 04/27/2024 08:10 Note Text: [facility] Physical Therapy Plan of Care Certification Patient Name: Cinthya Bone : 1970 [facility] #: [id number] Date: 04/27/2024 To: Doris Villanueva PA-C From Therapist: Deena Su PT RE: Patient Certification/ Recertification Your review, approval and electronic signature are required in order to comply with Payor: MMO / Plan: MMO SUPERMED PPO / Product Type: PPO / regulations. The identified Physical Therapy PLAN OF CARE for the patient is as follows: M54.6 Acute right-sided thoracic back pain (primary encounter diagnosis) PLAN OF CARE: Assessment: Cinthya Bone presents with diagnosis of acute right sided thoracic back pain that interferes with sitting (thoracic rotation - If I move wrong.) . The patient presents with impairments in ADL's, flexibility, independence in exercise, joint mobility, overall function, patient reported outcome measures, posture, range of motion, and symptom management. PROMIS? (Patient-Reported Outcomes Measurement Information System) scores were reviewed and identified as a rehabilitation concern. Prognosis for therapy is Fair due to: poor historian, chronic nature of impairments . The patient will benefitfrom skilled therapy services to meet the goals established for this planof care as noted below. Goals for Episode of Care: established 04/27/24 [place] in home exercise program. Patient will decrease pain to 1-2/10 with functional activities to allow patient to improve tolerance for ADLs. Patient will increase active ROM of thoracic spine to minimal to no limitation with right side flexion and right rotation without reports of increased symptoms to allow pt to to improve postural alignment and to improve performance of ADLs. Patient will increase flexibility of bilateral upper trapezius to WNL to improve ability to maintain proper posture. Perform sitting 30-45 minutes with decreased report of symptoms/pain in 6 weeks. Patient Goals: reduce R side thoracic back pain Time Frame for Goals and Treatment : 06/08/24 Planned Interventions, Frequency, and Duration: Current Frequency: 1x/week Duration: 6 weeks Total Number of Visits Planned: 6 Planned Treatment Interventions: Gait Training (70233), Self-assisted management (02111), Therapeutic activities (81007), Manual therapy (47952), Therapeutic exercise (71492), Neuromuscular re-education (21127) PLAN FOR NEXT VISIT: assess symptom response to HEP for scapular strengthening Patient demonstrates good understanding of plan of care and treatment. The above goals and plan of care were discussed and agreed upon by patient/family. For further details regarding this patient refer to the Physical Therapy electronically documented visit dated 04/27/2024. Provider Attestation I have reviewed the treatment plan for Cinthya Bone, [facility]# [id number] for the period of 04/27/24 -- 06/08/24, established on 04/27/2024. Signature certifies the need for therapy services. THERAPY NT Observed: 04/27/2024 8:04 AM Status: COMPLETED Source: [facility] HNO ID: [id number] Author: DEENA SU, PT Service: ? Author Type: Physical Therapist Type: Therapy (PT/OT/Speech/Resp) Filed: 04/27/2024 08:04 Note Text: Program_ID:[id number] Access Code: [email or web address] URL: [email or web address] Date: 04-27-2024 Prepared By: Deena Su Program Notes Exercises - Seated Scapular Retraction - 1-2 x daily - 7 x weekly - 3 sets - 15 reps - Standing Shoulder Row with Anchored Resistance - 1-2 x daily - 7 x weekly - 3 sets - 15 reps - Seated Upper Trap Stretch - 1-2 x daily - 7 x weekly - 1 sets - 3 reps - Standing Lower Cervical and Upper Thoracic Stretch - 1-2 x daily - 7 x weekly - 1 sets - 3 reps CNTHERAPY Observed: 04/27/2024 7:45 AM Status: COMPLETED Source: [facility] OT/PT/Speech Visit (PTWS) CINTHYA BONE ([id number]) 1970 F NFR Date Time Provider Department 04/27/24 7:45 AM DEENA SU PTWS Date Time Provider Department Center 04/27/2024 7:45 AM [id number] SU PTWS [place] Reason for Visit: PT Eval [747] Primary Visit Diagnosis:Acute right-sided thoracic back pain [M54.6] Allergies As of Date: 04/27/2024 Noted Allergy Reaction CATS 2011 7 - Swelling Comments: rash Date Reviewed: 04/26/2024 Reviewed by: Jennifer Ratliff APRN.[employer] - Fully Assessed Prescriptions as of 04/27/2024 - dulaglutide (TRULICITY) 0.75 mg/0.5 mL pen injector Inject 0.75 mg subcutaneously one time a week for 28 days. - DULoxetine (CYMBALTA) 30 mg capsule Take 1 capsule by mouth once daily. - rOPINIRole (REQUIP) 0.5 mg tablet Take 1 tablet by mouth daily at bedtime. Take with 1mg tab for total of 1.5mg. - rOPINIRole (REQUIP) 1 mg tablet Take 1 tablet by mouth daily at bedtime. - omeprazole (PRILOSEC) 20 mg capsule TAKE TWO CAPSULES BY MOUTH ONCE DAILY BEFORE BREAKFAST - cyclobenzaprine (FLEXERIL) 10 mg tablet Take 1 tablet by mouth three times a day as needed for muscle spasm. - buPROPion XL (WELLBUTRIN XL) 300 mg 24 hr tablet Take 1 tablet by mouth once daily. - celecoxib (CELEBREX) 200 mg capsule Take 1 capsule by mouth once daily. - montelukast (SINGULAIR) 10 mg tablet Take 1 tablet by mouth daily at bedtime. - cyanocobalamin (VITAMIN B-12) 1,000 mcg tab Take 1,000 mcg by mouth once daily. - cholecalciferol (VITAMIN D-3) 400 unit tab Take 400 Units by mouth once daily. - metFORMIN ER (GLUCOPHAGE XR) 500 mg 24 hr tablet Take 2 tablets by mouth daily with dinner. - mometasone-formoterol (DULERA) 200-5 mcg/actuation inhaler Inhale 2 Puffs as instructed two times a day. - loratadine (CLARITIN) 10 mg tablet Take 1 tablet by mouth once daily as needed. FOR ALLERGY SYMPTOMS - albuterol HFA (PROVENTIL HFA, VENTOLIN HFA) 90 mcg/actuation inhaler INHALE 2 PUFFS BY MOUTH EVERY 6 HOURS NEEDED FOR SHORTNESS OF BREATH AND WHEEZING - Nebulizer Accessories kit Provide 1 kit. - albuterol (PROVENTIL) 2.5 mg /3 mL (0.083 %) nebulizer solution Use 3 mL via nebulizer every 4 hours as needed for wheezing/shortness of breath. Use over 5-15minutes. - fluticasone (FLONASE) 50 mcg/actuation nasal spray Use 1 [place] in each nostril once daily. - promethazine (PHENERGAN) 25 mg tablet Take 1 tablet by mouth every 6 hours as needed. - ProAir RespiClick 90 mcg/actuation breath activated (albuterol sulfate) Inhale 2 Puffs as instructed every 6 hours as needed. Collar Closer Lockstitch: Addendum Therapy (PT/OT/Speech/Resp) ID: [id number] 04/27/2024 8:04 AM Author: DEENA SU Signed by DEENA SU PT on 04/27/2024 at 8:04 AM * * * This document replaces document [id number] * * * Document text: Program_ID:[id number] Access Code: [email or web address] URL: [email or web address] Date: 04-27-2024 Prepared By: Deena Su Program Notes Exercises - Seated Scapular Retraction - 1-2 x daily - 7 x weekly - 3 sets - 15 reps - Standing Shoulder Row with Anchored Resistance - 1-2 x daily - 7 x weekly - 3 sets - 15 reps - Seated Upper Trap Stretch - 1-2 x daily - 7 x weekly - 1 sets - 3 reps - Standing Lower Cervical and Upper Thoracic Stretch - 1-2 x daily - 7 x weekly - 1 sets - 3 reps PROGRESS Observed: 04/27/2024 7:39 AM Status: COMPLETED Source: [facility] HNO ID: [id number] Author: DEENA SU, PT Service: ? Author Type: Physical Therapist Type: Progress Notes Filed: 04/27/2024 08:10 Note Text: Episode Visit Count: 1 Therapist That Will Accept/Oversee The Plan Of Care: Deena Su Start of Care Date: 04/27/24 Onset Date: (for awhile) Plan of Care Certification Date: 04/27/24 Next Certification Due Date: 06/08/24 Patient Identified by Name and Date of : Yes REHABILITATION AND SPORTS THERAPY PHYSICAL THERAPY EVALUATION PLAN OF CARE: Assessment: Cinthya Bone presents with diagnosis of acute right sided thoracic back pain that interferes with sitting (thoracic rotation - If I move wrong.) . The patient presents with impairments in ADL's, flexibility, independence in exercise, joint mobility, overall function, patient reported outcome measures, posture, range of motion, and symptom management. PROMIS? (Patient-Reported Outcomes Measurement Information System) scores were reviewed and identified as a rehabilitation concern. Prognosis for therapy is Fair due to: poor historian, chronic nature of impairments . The patient will benefitfrom skilled therapy services to meet the goals established for this planof care as noted below. Goals for Episode of Care: established 04/27/24 [place] in home exercise program. Patient will decrease pain to 1-2/10 with functional activities to allow patient to improve tolerance for ADLs. Patient will increase active ROM of thoracic spine to minimal to no limitation with right side flexion and right rotation without reports of increased symptoms to allow pt to to improve postural alignment and to improve performance of ADLs. Patient will increase flexibility of bilateral upper trapezius to WNL to improve ability to maintain proper posture. Perform sitting 30-45 minutes with decreased report of symptoms/pain in 6 weeks. Patient Goals: reduce R side thoracic back pain Time Frame for Goals and Treatment : 06/08/24 Planned Interventions, Frequency, and Duration: Current Frequency: 1x/week Duration: 6 weeks Total Number of Visits Planned: 6 Planned Treatment Interventions: Gait Training (28969), Self-assisted management (42359), Therapeutic activities (54380), Manual therapy (95650), Therapeutic exercise (40338), Neuromuscular re-education (16773) PLAN FOR NEXT VISIT: assess symptom response to HEP for scapular strengthening Patient demonstrates good understanding of plan of care and treatment. The above goals and plan of care were discussed and agreed upon by patient/family. SUBJECTIVE: for R side thoracic back pain. Pt. states the referring provider wants her to try PT. pt. has been rx'd a muscle relaxer without relief. Pt. has BLE OA and asthma and states that she doubts she can do PT. No previous PT. Does get SOB but with exertion. Denies neck pain or radiating symptoms. Symptoms worse with prolonged sitting or in the AM, improve as the day progresses or when she is standing/walking. Limited with prolonged standing/walking due to BLE OA. Patient Goals: reduce R side thoracic back pain Functional Limitations: sitting (thoracic rotation - If I move wrong.) Prior Level of Function: Independent without limitations Relevant History Past Relevant Medical Conditions: Asthma Right or Left Handed: Right Previous Treatment: Muscle relaxer Falls Interview: No positive findings with falls interview Red Flags Vertebral Fracture Red Flags: Female Vertebral Fracture Clinical Reasoning: Proceed with caution due to the above (1-2) risk factors Cancer Red Flags: Age >50 or <20 Cancer Clinical Reasoning: Proceed with caution Infection Clinical Reasoning: No identified risk factors. Cervical Arterial Dysfunction Clinical Reasoning: Proceed with caution Cervical Myelopathy: Age > 45 yo Cervical Myelopathy Diagnostic Rule: Proceed with caution Red Flags - Cervical Cancer Red Flags: Age >50 or <20 Cancer Clinical Reasoning: Proceed with caution Infection Clinical Reasoning: No identified risk factors. Cervical Arterial Dysfunction Clinical Reasoning: Proceed with caution Cervical Myelopathy: Age > 45 yo Cervical Myelopathy Diagnostic Rule: Proceed with caution Spine History Symptoms Since Onset: Unchanging Pain is Worse Always: AM, Sitting Pain is Better Always: PM Sleep Affected by Pain: Not affected by pain (not due to thoracic spine but due to legs) Pain: Pain Pain Level: 3 Pain Location: Thoracic Spine - Right Description: Aching Post Treatment Pain Post Treatment Pain Level: Better Post Treatment Pain Location: Thoracic Spine - Right Post Treatment Symptoms: not as sore as when I came in. PROMIS Scales 04/27/2024 03/08/2024 Higher is Better Phys Func - T Score 40 (mild dysfunction) 36 (moderate dysfunction) Phys Func - Percentile 16 8 Self-Eff Symptom - T Score 46 (Average) 38 (Low) Self-Eff Symptom - Percentile 34 12 T-scores: mean of general population = 50. 5 points is clinically meaningfully difference Percentiles provide an indication of how the patient's score ranks in relation to the general population. Higher percentile rankings indicate better function/quality of life. 50th percentile is the average of the general population and indicates half of respondents had a worse score. OBJECTIVE MEASURES WITH LEVEL OF FUNCTION: Posture / Alignment Posture: Slump, Increased thoracic kyphosis, Decreased thoracic kyphosis, Rounded shoulders Sensation - Cervical Spine Cervical Spine Sensation: Grossly Intact Cervical Spine ROM Cervical ROM : Limitation AROM Cervical Protrusion AROM: Normal Cervical Retraction AROM: Normal Cervical Flexion AROM: Normal Cervical Extension AROM: Normal Cervical Side-Bend Right AROM: Moderate limitation Cervical Side-Bend Left AROM: Moderate limitation Cervical Rotation Right AROM: Normal Cervical Rotation Left AROM: Normal Thoracic Spine AROM Thoracic Flexion: Normal Thoracic Extension: Moderate limitation Thoracic Sidebend Right: Normal, Produces Thoracic Sidebend Left: Normal Thoracic Rotation Right: Minimal limitation, Produces Thoracic Rotation Left: Normal UE AROM R UE AROM: grossly WFL without symptoms produced L UE AROM: grossly WFL without symptoms produced UE Flexibility Flexibility: Upper Trapezius R Upper Trapezius Flexibilty Comments: limited L Upper Trapezius Flexibility Comments: limited Education: Education Learning Preferences: Demonstration, Explanation, Performance Barriers: Desire and Motivation Learning/educational needs: Home exercise program, Plan of Care, Posture Education Provided: Yes, see treatment interventions for education provided Education Provided To: Patient Education Mode/Type: Performance, Literature/Printed Materials, Explanation/Discussion, Demonstration Response to Education/Teach Back: Return Demonstration, States/Identifies TREATMENT: PT Treatment Interventions: Therapeutic Exercise, Self-Snf Management Evaluation Therapeutic Exercise: 1: *Access Code: [email or web address] URL: [email or web address] Date: 04/27/2024 Prepared by: Deena Su Exercises - Seated Scapular Retraction - 1-2 x daily - 7 x weekly - 3 sets - 15 reps - Standing Shoulder Row with Anchored Resistance - 1-2 x daily - 7 x weekly - 3 sets - 15 reps - Seated Upper Trap Stretch - 1-2 x daily - 7 x weekly - 1 sets - 3 reps - 30 hold - Standing Lower Cervical and Upper Thoracic Stretch - 1-2 x daily - 7 x weekly - 1 sets - 3 reps - 30 hold Skilled Intervention: Patient was educated in proper exercise technique and purpose for exercises. Skilled judgment was used in selection of appropriate interventions. Provided written instruction for home exercise program to facilitate proper performance and compliance. Correct performance of therapeutic exercises was facilitated with verbal, visual, and tactile cuing. Educated patient on rationale for performing exercises in regards to decreasing fatigue , increase ease of ADL, and ROM and function . Patient education as noted. Self-Snf Management: 1: discussed that pt. is to dc exercises that cause increased symptoms, however, noticing a decrease in symptoms may take time due to chronic nature of her symptoms 2: discussed posture 3: discussed that exercises can be modified for her OA and asthma -- pt. may still participate in therpay Skilled Intervention: Skilled judgment in the selection of proper modification for activity of daily living/home management based on clinical presentation, deficits, and needs. Provided written instruction for activities of daily living techniques to facilitate proper performance and compliance. Reviewed patient specific diagnosis in relation to activities of daily living/home management. Activity progression based on professional judgement. Moderate verbal cues for maintaining neutral spine alignment. Provided written instruction for home program to facilitate proper performance and compliance. Correct performance of home program was facilitated with verbal and visual cueing. Billing * Evaluation Low Complexity: 1 Unit Therapeutic Exercise Treatment Minutes: 10 Self-Care/Home Management Treatment Minutes: 5 Skilled Treatment Time Minutes (timed and untimed codes): 35 Total Session Time (minutes): 35 Session Start Time : 729 Session Stop Time : 804 Deena Su, PT BAS METAB 1999 PNL SERPL Collected: 07/2024 11:27 AM Status: F Source: [facility] Order Comment: Specimen Type : BLOOD SPECIMEN Ordering Facility: [facility] Address: [address] [place] [address] TYPE CODE TESTS RESULT OUT OF RANGE REFERENCE UNITS LAB 2345-7(LOINC) Glucose [facility] 84 74-99 mg/dL Result Comment: The [place] [employer] (ADA) provides guidance for cutoff values for fasting glucose and random glucose. The ADA defines fasting as no caloric intake for at least 8 hours. Fasting plasma glucose results between 100 to 125 mg/dL indicate increased risk for diabetes (prediabetes). Fasting plasma glucose results greater than or equal to 126 mg/dL meet the criteria for diagnosis of diabetes. In the absence of unequivocal hyperglycemia, results should be confirmed by repeat testing. In a patient with classic symptoms of hyperglycemia or hyperglycemic crisis, random plasma glucose results greater than or equal to 200 mg/dL meet the criteria for diagnosis of diabetes. Reference: Standards of Medical Care in Diabetes 2016, [place] [employer] Association. Diabetes Care. 2016.39(Suppl 1). LAB 3094-0(LOINC) BUN SerPl-mCnc 15 7-21 mg/ dL LAB 2160-0(LOINC) Creat SerPl-mCnc 0.75 0.58-0.96 mg/dL LAB 2951-2(LOINC) Sodium SerPl-sCnc 140 136-144 mmol/L LAB 2823-3(LOINC) Potassium SerPl-sCnc 4.0 3.7-5.1 mmol/L LAB 2075-0(LOINC) Chloride SerPl-sCnc 103 98-107 mmol/L LAB 2028-9(LOINC) CO2 SerPl-sCnc 27 22-30 mmo l/L LAB 19939-4(LOINC) Anion Gap SerPl-sCnc 10 8-15 mmol/L LAB 07398-2(LOINC) Calcium SerPl-mCnc 9.6 8.5-10.2 mg/dL LAB 50842-3(LOINC) Creatinine + eGFR Pnl SerPlBld 97 >=60 mL/min/1 .73m??? Result Comment: Estimated Gl omerular Filtration Rate (eGFR) is calculated using the 2020 CKD-EPI creatinine equation. This equation utilizes serum creatinine, sex, and age as parameters. The creatinine assay has traceable calibration to isotope dilution-mass spectrometry. Refer to KDIGO guidelines for clinical interpretation. In patients with unstable renal function, e.g. those with acute kidney injury, the eGFR may not accurately reflect actual GFR. Performed By: #### [id number] # ### [facility] CLIA [id number] [address] [place] [address] OF [employer]GRESS Observed: 04/26/2024 11:00 AM Status: COMPLETED Source: [facility] ID: [id number] Author: JENNIFER RATLIFF APRN.[employer] Service: ? Author Type: Nurse Practitioner Type: Progress Notes Filed: 04/26/2024 20:07 Note Text: Some documentation from previous visit of 12/21/2023 was copied and pasted, documentation has been reviewed and edited as necessary for today's visit. Patient Summary: Jocelyn is a 53 year old Female who presents for follow-up evaluation of obesity/weight management to treat and prevent related co-morbidities. In our previous visits we have discussed lifestyle intervention including a nutrition recommendations and physical activity optimization. Her last office visit was 4.5 months ago. Assessment/plan from last visit: - Bupropion 300 XL for NADIRA and depression per PCP - Metformin ER 500 mg - 1 gm at dinner - denied [facility] Sleep study [facility] [place]. Appeal was approved on 12/19/23 and scheduled for next week. Consult to BMI - considering if unsuccessful at weight loss Interval History PT specifies the following items as new or significant updates since the last appointment: Stepfather passed. Going through divorce - seeing counselor. Stress eating - Cravings after dinner Weight loss since last vist:+11 lbs. Date: Weight: BMI: Medications: 04/26/2024 311 lb 53.95 Trulicity 12/21/2023 301 lb 52.22 denied 11/01/2023 300 lb 52.04 Metformin ER 500 mg 5% weight loss = 0 lbs, 10% weight loss = 0 lbs Anti-obesity medications: Metformin ER Benefit:slight increased fullness Adverse effects: none Weight promoting medications: Other Cymbalta Inhaled steroid Previous Diet (initial appointment): Awake - 0600 B - 08 coffee with vanilla FF 1 tsp creamer S - none L - 11-12 lunch meat sandwich on wheat with orange or grapes and lemonade or OJ S - none D - 4 pm protein, sometimes breaded and sometimes with gravy/potato or rice/salad or vegetable water or Sprite S - 6 pm fruit or veg in [place] or cookie or chips Fluids: coffee with vanilla FF 1 tsp creamer, lemonade, OJ, regular pop 1 per day, regular Gatorade, regular Body [place] and water Bedtime - 9 pm Quality of diet: 24hr recall suggests unhealthy diet. Characterization of diet:Structured, unhealthy snacking, evening snacking, and increased consumption of sugar sweetened beverages. 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 Sometimes dessert - berkeet food cake (large portions if under stress) S - 7 pm cookie or chips or apple with PB - stress and emotional eating Fluids - water, powerade zero and regular Current Barriers: emotional eating, stress eating, food cravings, large portion sizes, grazing/irregular meal patterns, excessive hunger/lack of satiety signals, and lack of motivation Exercise: increased Regular exercise: walking around block, up and down steps Strength/resistance exercise:yes Barriers to regular exercise? yes left knee pain (seeing Dr. Maher) Work-related activity:Sedentary. Gym Membership: no Activity Tracker: yes, but not currently using average steps per day ? Stress: increased Financial and Personal Sleep: increased 6-7 hours - tosses and turns because of leg pain. DRE YES ; CPAP Ordered but did not have insurance at the time so did not get equipment due to cost . Appeal approved - appt at [facility] next week Estimated Creatinine Clearance: 113.8 mL/min (based on SCr of 0.81 mg/dL). PAST MEDICAL HISTORY Diagnosis Date Allergic rhinitis, cause unspecified 09/10/2008 Arthritis Arthritis of knee 10/30/2020 Asthma Benign neoplasm of left breast 2019 COVID-19 virus infection 10/14/2021 10/14/2021 Environmental allergies Never formally tested. Sneezes, itches around cats. Excessive or frequent menstruation Heavy periods Fatty liver 01/04/2022 Noted on US 12/2021 Gastroesophageal reflux disease without esophagitis 09/10/2008 Hemorrhage of gastrointestinal tract, unspecified 05/10/2014 Irregular menstrual cycle Irregular periods Liver cyst 01/08/2022 MRI: 12/2021 Mild persistent asthma without complication 12/11/2008 Obesity, Class III, BMI >= 40 (morbid obesity) E66.01 12/03/2016 Pneumonia 2008 Required intubation Restless leg syndrome 10/30/2020 Shortness of breath 2006 Was on a ventolator with pneumonia Situational depression 09/28/2022 Tonsil asymmetry 03/04/2018 Lt at 2+ Rt normal. chronic Well adult exam 09/01/2018 Done 10/30/2020 Current Outpatient Medications Medication Sig Dispense Refill doxycycline (VIBRA-TABS) 100 mg tablet Take 1 tablet by mouth two times a day for 7 days. 14 tablet 0 DULoxetine (CYMBALTA) 30 mg capsule Take 1 capsule by mouth once daily. 60 capsule 0 rOPINIRole (REQUIP) 0.5 mg tablet Take 1 tablet by mouth daily at bedtime. Take with 1mg tab for total of 1.5mg. 60 tablet 0 rOPINIRole (REQUIP) 1 mg tablet Take 1 tablet by mouth daily at bedtime. 60 tablet 0 omeprazole (PRILOSEC) 20 mg capsule TAKE TWO CAPSULES BY MOUTH ONCE DAILY BEFORE BREAKFAST 180 capsule 1 cyclobenzaprine (FLEXERIL) 10 mg tablet Take 1 tablet by mouth three times a day as needed for muscle spasm. 30 tablet 0 buPROPion XL (WELLBUTRIN XL) 300 mg 24 hr tablet Take 1 tablet by mouth once daily. 90 tablet 1 celecoxib (CELEBREX) 200 mg capsule Take 1 capsule by mouth once daily. 30 capsule 5 montelukast (SINGULAIR) 10 mg tablet Take 1 tablet by mouth daily at bedtime. 30 tablet 5 cyanocobalamin (VITAMIN B-12) 1,000 mcg tab Take 1,000 mcg by mouth once daily. cholecalciferol (VITAMIN D-3) 400 unit tab Take 400 Units by mouth once daily. metFORMIN ER (GLUCOPHAGE XR) 500 mg 24 hr tablet Take 2 tablets by mouth daily with dinner. 180 tablet 1 mometasone-formoterol (DULERA) 200-5 mcg/actuation inhaler Inhale 2 Puffs as instructed two times a day. 18 g 11 loratadine (CLARITIN) 10 mg tablet Take 1 tablet by mouth once daily as needed. FOR ALLERGY SYMPTOMS 30 tablet 11 albuterol HFA (PROVENTIL HFA, VENTOLIN HFA) 90 mcg/actuation inhaler INHALE 2 PUFFS BY MOUTH EVERY 6 HOURS NEEDED FOR SHORTNESS OF BREATH AND WHEEZING 1 Each 5 Nebulizer Accessories kit Provide 1 kit. 1 Each 4 albuterol (PROVENTIL) 2.5 mg /3 mL (0.083 %) nebulizer solution Use 3 mL via nebulizer every 4 hours as needed for wheezing/shortness of breath. Use over 5-15minutes. 360 mL 3 fluticasone (FLONASE) 50 mcg/actuation nasal spray Use 1 [place] in each nostril once daily. 1 Each 5 promethazine (PHENERGAN) 25 mg tablet Take 1 tablet by mouth every 6 hours as needed. 12 tablet 0 ProAir RespiClick 90 mcg/actuation breath activated (albuterol sulfate) Inhale 2 Puffs as instructed every 6 hours as needed. 1 Each 5 No current facility-administered medications for this visit. ROS/Fam Hx pertaining to AOMs: GEN: Fatigue:yes PULM: Asthma:yes GI: GERD:yes Fatty liver disease:yes MSK: Joint Pain:yes Occupation: Unemployed and filing for disability Contraception: hysterectomy BP 151/72 Pulse 86 Wt (!) 141.1 kg (311 lb) LMP 12/01/2010 (Exact Date) SpO2 98% BMI 53.95 kg/m? Physical Exam Constitutional: She appears healthy. No distress. Results: recent labs reviewed with the patient. Latest Ref Rng AND Units 11/07/2023 CMP Sodium 136 - 144 mmol/L 141 Potassium 3.7 - 5.1 mmol/L 4.2 Chloride 98 - 107 mmol/L 106 CO2 22 - 30 mmol/L 24 Glucose 74 - 99 mg/dL 93 BUN 7 - 21 mg/dL 14 Creatinine 0.58 - 0.96 mg/dL 0.81 EGFR >=60 mL/min/1.73m? 89 Protein, Total 6.3 - 8.0 g/dL 6.9 Albumin 3.9 - 4.9 g/dL 4.3 Calcium 8.5 - 10.2 mg/dL 9.6 Bilirubin, Total 0.2 - 1.3 mg/dL 0.2 AST 13 - 35 U/L 17 ALT 7 - 38 U/L 21 Alkaline Phosphatase 34 - 123 U/L 77 Cholesterol, Total (mg/dL) Date Value 11/07/2023 181 03/09/2019 173 Total Cholesterol, Nonfasting (mg/dL) Date Value 10/30/2020 179 HDL Cholesterol (mg/dL) Date Value 11/07/2023 53 03/09/2019 66 HDL Cholesterol, Nonfasting (mg/dL) Date Value 10/30/2020 60 LDL Cholesterol (mg/dL) Date Value 11/07/2023 97 03/09/2019 84 LDL Cholesterol, Nonfasting (mg/dL) Date Value 11/01/2022 89 10/30/2020 89 Triglyceride (mg/dL) Date Value 11/07/2023 155 03/09/2019 113 Triglycerides, Nonfasting (mg/dL) Date Value 10/30/2020 151 Latest Ref Rng AND Units 11/07/2023 CBC WBC 3.70 - 11.00 k/uL 6.23 RBC 3.90 - 5.20 m/uL 4.89 Hemoglobin 11.5 - 15.5 g/dL 12.9 Hematocrit 36.0 - 46.0 % 40.0 MCV 80.0 - 100.0 fL 81.8 MCH 26.0 - 34.0 pg 26.4 MCHC 30.5 - 36.0 g/dL 32.3 RDW-CV 11.5 - 15.0 % 14.0 Platelet Count 150 - 400 k/uL 357 MPV 9.0 - 12.7 fL 9.6 Vitamin D 25 Hydroxy Date Value Ref Range Status 11/07/2023 26.8 (L) 31.0 - 80.0 ng/mL Final Comment: Classification of 25 [place] Vitamin D status: Deficiency/Insufficiency: < or = 30 ng/ml. Sufficiency/Optimal Levels: 31-80 ng/mL Toxicity: > 100 ng/mL. Test performed by chemiluminescent immunoassay. TSH Date Value 11/07/2023 2.290 mIU/L 11/01/2022 1.850 mIU/L 10/08/2019 1.670 uU/mL 11/10/2018 2.560 uU/mL Hemoglobin A1C (%) Date Value 11/07/2023 5.3 11/01/2022 5.0 09/30/2021 5.0 10/30/2020 5.0 03/04/2018 4.7 Insulin Date Value Ref Range Status 11/07/2023 33.4 (H) 3.0 - 25.0 mU/L Final Anti-Obesity Medications >Saxenda/Wegovy/Ozempic: Cost. Ins coverage? Family or personal History of MEN2 or Medullary thyroid cancer: no >Metformin: eGFR > 30. No contraindications or medication interactions. Assessment/Plan: Cinthya Bone is a 53 year old yo with Class III obesity who presented today for follow up for supervised weight loss to treat and prevent related co-morbidities. 1. Gastroesophageal reflux disease without esophagitis - ICD9: 530.81, ICD10: K21.9 (primary diagnosis) -Omeprazole daily - benefits of weight loss - Whole food balanced protein low-carb nutrition 2. DRE (obstructive sleep apnea) - ICD9: 327.23, ICD10: G47.33 -Sleep study done at [facility].CPAP Ordered but did not have insurance at the time so did get equipment due to cost. Sleep study appeal approved and is scheduled for next week - benefits of weight loss - Whole food balanced protein low-carb nutrition - DULAGLUTIDE 0.75 MG/0.5 ML SUBCUTANEOUS PEN INJECTOR 3. Moderate persistent asthma without complication - ICD9: 493.90, ICD10: J45.40 -Treated with Flonase, Singulair, loratadine, albuterol nebulizer and inhaler, Dulera inhaler 4. Hyperinsulinemia - ICD9: 251.1, ICD10: E16.1 - DULAGLUTIDE 0.75 MG/0.5 ML SUBCUTANEOUS PEN INJECTOR 5. Fatty liver - ICD9: 571.8, ICD10: K76.0 - benefits of weight loss - Whole food balanced protein low-carb nutrition 6. Arthritis of knee - ICD9: 716.96, ICD10: M17.10 - benefits of weight loss - Whole food balanced protein low-carb nutrition 7. Encounter for long-term (current) use of medications - ICD9: V58.69, ICD10: Z79.899 - BASIC METABOLIC PANEL 9. Class 3 severe obesity with serious comorbidity and body mass index (BMI) of 50.0 to 59.9 in adult, unspecified obesity type (HCC) - ICD9: 278.01, V85.43, ICD10: E66.813, E66.01, Z68.43 Weight increased Consult to BMI - considering if unsuccessful at weight loss - SEMAGLUTIDE Not covered by insurance - METFORMIN ER 500 MG TABLET,EXTENDED RELEASE 24 HR. - DULAGLUTIDE 0.75 MG/0.5 ML SUBCUTANEOUS PEN INJECTOR - Start Trulicity if covered by insurance plan for hyperinsulinemia, DRE and obesity. Patient is aware this is an off-label use of the medication, however, more affordable than Wegovy which is just a higher dose of a drug in the same class. No personal or family history of medullary thyroid cancer. No personal history of pancreatitis or known allergy. Prescription sent today and detailed instructions on how to use the Trulicity pen provided in the patient instructions. Patient also referred to [email or web address] for injection training video and encouraged to reach out if in-person pen training is needed. - Sleep study done at [facility].CPAP Ordered but did not have insurance at the time so did get equipment due to cost. Sleep study appeal approved and she is scheduled for next week at [facility]. -- We discussed several strategies to track food intake and increase mindfulness around eating will decrease calorie intake. She was counseled on the following: - Recommended whole food balanced protein, controlled carbohydrate nutrition plan. - Given protein, whole food and high protein nutrition lists. -- Encouraged the patient to improve her physical activity as able. An overall goal of 150-200 minutes per week of exercise has been effective in weight loss and maintenance. -- Reviewed that monitoring weight daily and food intake can have a positive impact on overall weight loss and maintenance of weight loss. Activity tracking can be used to stay on target for exercise however should not be used to reward oneself She understands that there can be limitations of pharmacotherapy due to contraindications, side effects and cost. Patient was told to contact her insurance company to see what AOMs and supervised behavioral medical appointments are currently covered. Patient understands she will have more success when following a healthy lifestyle. We reviewed continued use of online tracking of daily weights, food journal and if desired physical activity. We reviewed that during management she is to report any concerning side effects of any pharmacotherapy she is placed on. She understands that she will need routine follow up in the office. Prior to any virtual visits in the future she will need to check her Blood pressure, weight, and pulse. Prescription instructions reviewed with patient as applicable. Potential red flag symptoms discussed with the patient. Reviewed appropriate action plan to take if red flag symptoms occur. Patient agreeable to treatment plan. Follow up in 4 weeks Jennifer Ratliff CNP Advanced Education from the [employer] I spent a total of 53 minutes on the date of the service which included preparing to see the patient, [id number] patient care, completing clinical documentation, obtaining and/or reviewing separately obtained history, performing a medically appropriate examination, counseling and educating the patient/family/caregiver, and ordering medications, tests, or procedures. CNOV Observed: 04/26/2024 11:00 AM Status: COMPLETED Source: [facility] Office Visit (OBGYWM) CINTHYA BONE ([id number]) 1970 F NFR Date Time Provider Department 04/26/24 11:00 AM JENNIFER RATLIFF During your visit today, we recorded the following information about you: Pulse Blood pressure Weight 86/minute 151/72 141.1 kg Jennifer Ratliff APRN.[employer] 04/26/2024 11:07 AM Addendum - Whole food balanced protein, controlled carbohydrate nutrition plan - 30 g of protein 3 times a day and up to 30 g of carbs at lunch and dinner only. Breakfast - 30 gm protein with limit of 2 gm carbohydrates. Options include: Premier Protein or generic 30 gm protein 1 gm sugar or 5 eggs or 2-3 eggs and some unbreaded meat and/or cheese. No fruit, vegetables, bread, grain, yogurt, Smoothies, etc. Lunch and dinner - 30 gm protein is the goal with less than 30 gm carbohydrates Snacks - all protein or more protein than carbs Protein - no carbs Egg 1 large - 6g Egg white 1 large 3.6g 3 oz is approximately the size of a deck of cards and equals 21 g protein so 4 oz is 28 gm protein Beef, Chicken, Gail, Pork, Gamble 1 oz 7g Fish, Tuna Fish 1 oz 7g (Starkist tuna packet 2.6 oz 17 gm protein) Seafood (Crabmeat, Shrimp, Lobster) 1 oz 6g Protein shakes (read labels) Premier Protein or generic [employer] Equate, [employer] High Performance- 30g protein AND 1g carb - meal replacement Premier Protein powder or generic- 30 gm protein, 1g carb Premier Protein plant protein powder - 25 gm protein, 0 sugar/2 carb Vanilla and chocolate (not a meal replacement) Fairlife 30 gram protein - 30g protein AND 3g carb BOOST Glucose Control Max 30g Protein Nutritional Drink - 30g protein AND 1 carb - meal replacement Slimfast High Protein - 20g protein AND 1g carb Ensure Max Protein Nutrition Shake 30g protein AND 2 carb Protein AND carbs Beef/Gail Jerky 1 oz dried 10-15g protein - check carb count, can be high if sugar added Slim Nikolay - 6 gm protein and 4 net carb Great Value original turkey sausage sticks - 7 gm protein and 2 gm carb Librado (at [facility]) Original smoked sausage sticks - 8 gm protein and 0 carb Imitation Crab Meat 1 oz - 2g protein AND 4g carb Milk, skim 2% or 1% 8 oz - 8g protein AND 12g carb Fairlife 2% milk 8 oz -13 g protein AND 6g carb Mozambican yogurt Full Fat Mozambican Yogurt 1 cup - 20.4g protein AND 9.1g carb 2% Moz[place] Yogurt 1 cup - 22.7g protein AND 9.1g carb 0% (fat-free) Mozambican Yogurt - 1 cup 24g protein AND 9.3g carb Aldi Protein Mozambican yogurt single svg - 13/g15g protein AND 7g carb Chobani Zero Sugar single svg: - 12g protein AND 5g carb Dannon Mozambican Light + Fit 1 single svg - 12g protein AND 9g carb Oikos Pro single svg - 20g protein AND 8g carb Oikos Triple Zero Moz[place]ican Nonfat Yogurt 1 single svg - 15g protein AND 7g carb Oikos Pro drinkable yogurt 1 single svg - 23 g protein AND 8 g carb :ratio, KETO Friendly Dairy Snack 1 single svg - 15g protein AND 2g carb :ratio Protein 1 single svg - 25g protein AND 8g carb Two Good Lowfat [place] Yogurt, [place], Lower Sugar - 12g protein AND 2g carb Yoplait Protein 1 single svg 15gm protein AND 5gm carb Dairy Free - [place] unsweetened Moz[place] almond/soy 15 gm protein AND 3 gm carb Dairy Free - True Goodness by Nestor coconut-based yogurt alternative 1 gm protein 1 gm net carb 180 uma Cheese each oz Brie 5.9g protein AND 0.1g carb Cheddar 7g protein AND 0.4g carb Addison 6.7g protein AND 0.7g carb Cream Cheese 1.7g protein AND 1.2g carb Feta 4g protein AND 1.2g carb Mozzarella 6.3g protein AND 0.6g carb Parmesan 10g protein AND 0.9g carb Eritrean 7.6g protein AND 1.5g carb Cottage Cheese 1/2 c Breakstone 2% 13g protein 7g carb Lorrie 2% 13g protein 5 g carb Good Culture 2% 14g protein 3g carb Delgado?s Low Fat 12g protein AND 4g carb Legumes Lentils ? cup 9g protein AND 20g carb [place] beans ? cup 7g protein AND 20g carb Kidney, Black, [place], Cannellini beans ? cup 8g protein AND 20g carb Soybeans 1/2 c 14g complete protein AND 8.5g carb [place] milk, unsweetened 8 oz 1g protein AND 2g carb Soy milk 8 oz 3.5g protein AND 1.6g carb Tofu 1/2 cup 10g protein AND 2.3g carb Peanut butter, natural 2 Tbsp 7-8g protein AND 4g net carbs, 190 calories PB2 powder 2 Tbsp 6g protein AND 5g carb Nuts and Seeds per oz Almonds - 5.9g protein AND 6.1g carb [place] Nuts - 4.0g protein AND 3.4g carb Cashews - 5.1g protein AND 9.2g carb Hazelnuts - 4.2g protein AND 4.7g carb Hemp seeds/hearts 3 T/30 gms - 9.5 gm complete protein and 2.5 gm carb Peanuts - 7g protein AND 4.6g carb Pecans - 2.6g protein AND 3.9g carb Pistachios - 5.8g protein AND 7.8g carb Pumpkin Seeds - 6.9g protein AND 5g carb [place] Seeds - 5.8g protein AND 5.6g carb Walnuts - 4.3g protein AND 3.8g carb Edamame Beans (soybean) snack 1 pack 11 gm complete protein 2 carb 5 (FIVE) gram carb vegetable options 1 cup raw OR ? cup cooked: Asparagus [place]on sprouts Beets Broccoli Brussel sprouts Cabbage Carrots Cauliflower Celery [place] Eggplant Green beans Lettuce Peppers Snap peas Spaghetti squash Spinach Tomato Turnips Zucchini 15 gram carb vegetable options ? cup cooked corn or hominy ? corn on the cob, large (5 oz) ? cup cooked green peas 4.3 gm complete protein ? cup cooked cortes beans 1 small potato or sweet potato ? cup cooked potato, plain ? cup cooked sweet potato, plain 1 cup winter squash (pumpkin, acorn, butternut) 1 cup marinara or pasta sauce - check label ? cup tomato juice ? cup tomato puree Beans, Seeds, Nuts ? cup cooked beans (kidney, bryant, red, green, etc.) ? cup cooked lentils ? cup baked beans 4 tablespoons nut butter <15 gram carb fruit options Berries have the lowest sugar content 1/2 medium apple - 12.5 carbs 1/2 medium avocado - 6.5 gm carbs 1/2 medium banana - 15 carbs 1/2 cup blueberries - 11 carbs - may actually help you lose weight 1/2 cup fresh cherries -11 carbs 1 medium Nicolette -9 carbs 1/2 cup fresh cranberries - 6.5 carbs 1/2 c grapes - 15 carbs 1/2 medium grapefruit - 10.5 carbs 1/2 cup diced honeydew melon - 8 carbs 1 medium kiwi without skin - 11 carbs 1/2 cup sliced lynda -14 carbs 1 medium nectarine - 15 carbs 1 medium orange -15.5 carbs 1 medium peach -14.5 carbs 1/2 cup fresh pineapple -11 carbs 1 medium plum -7.5 carbs 1 prune - 6 carbs 1/4 c raisins - 31.25 carbs 1/2 cup raspberries -7.5 carbs 1/2 c strawberries - 12.7 carbs 1 medium tangerine -12 carbs 1/2 cup diced watermelon - 6 carbs Grains Brown rice 1/2 c 5.5g protein 24 carb White long-grain rice 1/2 c 2g protein 22.5 carb Quinoa 1/2 c 4 gm complete protein 25 carb Oatmeal, old fashioned 1/2 c 5g protein 27g carb High Protein Snack Ideas 1. Jerky 2. [place] mix without dried fruit 3. Gail roll-ups 4. Mozambican yogurt 5. Veggies and yogurt dip 6. Tuna 7. Hard-boiled eggs 8. Peanut butter with celery 9. Cheese slices/ Cheese Stick 10. Handful of almonds, peanuts or walnuts 11. Cottage Cheese 12. Beef sticks 13. Protein bars 14. Canned [place] 15. Pumpkin seeds 16. Nut butter 17. Protein shakes 18. Avocado and chicken salad 19. Egg muffins 20. Leftover protein or lunch meat 21. 1/2 c blended cottage cheese or Mozambican yogurt with dry ranch/Mrs. Dash/herb seasoning mix to make protein dip 22. 1/2 c blended cottage cheese with 1 Tbsp sugar-free dry cheesecake pudding mix 12g protein 10 carb 23. Pudding - 1 30 gm protein shake with 1/2 pkg sugar-free pudding 4 svgs - 7.8 gm protein, 5 carb each svg 24. SF Sunkist or Root Beer with 1-2 Tablespoons heavy whipping cream 25. Mini frozen dessert bites - layer protein yogurt, skinny syrup and crushed nuts and freeze HOW DOES CHRONIC STRESS AFFECT EATING PATTERNS? Chronic stress can affect the body?s use of calories and nutrients in various ways. It raises the body?s metabolic needs and increases the use and excretion of many nutrients. If one does not eat a nutritious diet, a deficiency may occur.Stress also creates a chain reaction of behaviors that can negatively affect eating habits, leading to other health problems down the road. Stress places a greater demand on the body for oxygen, energy, and nutrients. Yet people who experience chronic stress may crave comforting foods such as highly processed snacks or sweets, which can be high in unhealthy fats, sugar, and calories but low in micronutrients. People feeling stress may lack the time or motivation to prepare nutritious, balanced meals, or may skip or forget to eat meals. Stress can disrupt sleep by causing construction trench digger sleep or more frequent awakenings, which leads to fatigue during the day. In order to cope with daytime fatigue, people may use stimulants to increase energy such as with caffeine or high-calorie snack foods. The reverse may also be true that poor-quality sleep is itself a stressor. Studies have found that sleep restriction causes a significant increase in cortisol levels. During acute stress, adrenaline suppresses the appetite.But with chronic stress, elevated levels of cortisol may cause cravings, particularly for foods high in sugar, fat, and calories, which may then lead to weight gain. Cortisol favors the accumulation of fat in the belly area, also called central adiposity, which is associated with insulin resistance and an increased risk of type 2 diabetes, cardiovascular disease, and certain breast cancers.4,6-8 It also lowers levels of the hormone leptin (that promotes satiety) while increasing the hormone ghrelin (that increases appetite). https://cdn1.[facility].[place].edu/wp-content/uploads/sites//HeatlhyLivingG- pxwl28-24.1.pdf Meditation/Mindfulness Apps: Biomodar https://[employer]/ Calm ($60/year) https://www.calm.com/ Mindful Moments (Free [facility]) https://BankBazaar.com.Sudiksha.Capical/mobile-apps/ulihjh-sler-ktw-marcus Podcasts: The Happiness Lab https://www.happinesslab.fm/, 10% Happier https://www.[employer]/podcast Following are six relaxation techniques that can help you evoke the relaxation response and reduce stress. 1. Breath focus. In this simple, powerful technique, you take long, slow, deep breaths (also known as abdominal or belly breathing). As you breathe, you gently disengage your mind from distracting thoughts and sensations. Breath focus can be especially helpful for people with eating disorders to help them focus on their bodies in a more positive way. However, this technique may not be appropriate for those with health problems that make breathing difficult, such as respiratory ailments or heart failure. 2. Body scan. This technique blends breath focus with progressive muscle relaxation. After a few minutes of deep breathing, you focus on one part of the body or group of muscles at a time and mentally releasing any physical tension you feel there. A body scan can help boost your awareness of the mind-body connection. If you have had a recent surgery that affects your body image or other difficulties with body image, this technique may be less helpful for you. 3. Guided imagery. For this technique, you conjure up soothing scenes, places, or experiences in your mind to help you relax and focus. You can find free apps and online recordings of calming scenes--just make sure to choose imagery you find soothing and that has personal significance. Guided imagery may help you reinforce a positive vision of yourself, but it can be difficult for those who have intrusive thoughts or find it hard to conjure up mental images. 4. Mindfulness meditation. This practice involves sitting comfortably, focusing on your breathing, and bringing your mind's attention to the present moment without drifting into concerns about the past or the future. This form of meditation has enjoyed increasing popularity in recent years. Research suggests it may be helpful for people with anxiety, depression, and pain. 5. Yoga, ludwin chi, and qigong. These three ancient arts combine rhythmic breathing with a series of postures or flowing movements. The physical aspects of these practices offer a mental focus that can help distract you from racing thoughts. They can also enhance your flexibility and balance. But if you are not normally active, have health problems, or a painful or disabling condition, these relaxation techniques might be too challenging. Check with your doctor before starting them. 6. Repetitive prayer. For this technique, you silently repeat a short prayer or phrase from a prayer while practicing breath focus. This method may be especially appealing if hindu or spirituality is meaningful to you. Rather than choosing just one technique, experts recommend sampling several to see which one works best for you. Try to practice for at least 20 minutes a day, although even just a few minutes can help. But the longer and the more often you practice these relaxation techniques, the greater the benefits and the more you can reduce stress. https://www.health.[place].edu/jzcs-sfj-djbd/fvn-afazvwhprd-estpydpjzf-to-reduc- e-stress DULAGLUTIDE (Trulicity) - The medication comes in a once weekly, single-dose pen. - The most common adverse reactions reported in >=5% of Trulicity-treated patients in trials were nausea, diarrhea, vomiting, abdominal pain, decreased appetite, dyspepsia, and fatigue.The side effects are usually transient in nature. Please reach out for assistance in managing these symptoms if they persist and are bothersome. Side effects typically occur 1-3 days after the injection, when starting the medication, and with dose increases. With this in mind consider timing the injection like on a Tuesday night, so if you have side effects they will occur on the weekend versus while you are at work. -- We should have further discussions about taking this medication if you have a history of a pancreatitis, a disease called MEN2, or you or a family member has had medullary thyroid cancer. -- please inform me immediately if you are or plan to become . -- Although rare, there is an increased risk for inflammation of the pancreas (pancreatitis), gallbladder problems (including gallstones), low blood sugar (typically when combined with a medication called a sulfonurea), acute kidney injury (bwith nausea/vomiting and resulting dehydration), diabetic retinopathy (damage to the eye's retina), increased heart rate, and suicidal behavior or thinking. -- Please reach out if in-person pen training is needed. -- Keep medication refrigerated. It is good for 2 weeks out of the refrigerator as long as it had not been in high temperatures or direct sunlight. Instructions for Use Trulicity Patient Education How to use the pen: What is Trulicity AND Easy To Use Pen Trulicity (dulaglutide) Full medication guide: Trulicity What Is Trulicity? Trulicity is a brand-name prescription drug that belongs to the drug class glucagon-like peptide-1 (GLP-1) agonists. Trulicity is available as a liquid solution self-injectable medication. It is a pre-filled, disposable, single-use injection pen. Can Trulicity Be Used for Weight Loss? While Trulicity is not a weight loss drug, Similar drugs in the same class of medication called GLP1's have recently been approved for weight loss by the FDA. These drugs are named Wegovy and Saxenda. The medication will be delivered as a once-weekly shot, in combination with diet and exercise. How Does Trulicity for Weight Loss Work? Trulicity is in a drug class called GLP-1 agonists that are used to control blood sugar, and can be taken to assist in weight loss. This drug works by - Slowing down how fast your stomach empties food - Blocking hormones that cause the liver to release sugar - Together, these combined actions cause the feeling of hunger to decrease, which leads to eating less, and finally, weight loss. How Long Does It Take for Trulicity to Work for Weight Loss? Results vary from person to person with Ozempic. Some people may have a quick initial weight drop; for others, it may take more time. Trulicity has been shown to help people lose weight in a safe, long-term, and healthy way. A [facility] doctor will help you with dosages of Trulicity for weight loss and might recommend slowly increasing dosage over time to maximize weight loss. The speed at which you lose weight is largely influenced by the amount of lifestyle changes you are able to make: there is no magic weight loss drug on the market. It?s important to remember that weight loss takes time, and you?ll have the best results if you use Trulicity in combination with exercise and a healthy diet. Trulicity for Weight Loss Dulaglutide: Patient drug information Access [employer] Online for additional drug information, tools, and databases. Copyright 6282-9476 [employer]. All rights reserved. (For additional information see Dulaglutide: Drug information) You must carefully read the Consumer Information Use and Disclaimer below in order to understand and correctly use this information. Brand Names: [place] Trulicity Brand Names: [place] Trulicity Warning Drugs like this one have been shown to cause thyroid cancer in some animals. It is not known if this drug may cause thyroid cancer in humans. Call your doctor right away if you have a neck mass, trouble breathing, trouble swallowing, or hoarseness that will not go away. Do not use this drug if you have a health problem called Multiple Endocrine Neoplasia syndrome type 2 (MEN 2), or if you or a family member have had thyroid cancer. What is this drug used for? It is used to lower blood sugar in patients with high blood sugar (diabetes). It is used to lower the chance of heart attack, stroke, and in some people. What do I need to tell my doctor BEFORE I take this drug? If you are allergic to this drug; any part of this drug; or any other drugs, foods, or substances. Tell your doctor about the allergy and what signs you had. If you have any of these health problems: Type 1 diabetes or stomach or bowel problems. If you have ever had pancreatitis. If the patient is a child. Do not give this drug to a child. This is not a list of all drugs or health problems that interact with this drug. Tell your doctor and pharmacist about all of your drugs (prescription or OTC, natural products, vitamins) and health problems. You must check to make sure that it is safe for you to take this drug with all of your drugs and health problems. Do not start, stop, or change the dose of any drug without checking with your doctor. What are some things I need to know or do while I take this drug? Tell all of your health care providers that you take this drug. This includes your doctors, nurses, pharmacists, and dentists. Follow the diet and workout plan that your doctor told you about. Wear disease medical alert ID (identification). Check your blood sugar as you have been told by your doctor. Have blood work checked as you have been told by the doctor. Talk with the doctor. Do not drive if your blood sugar has been low. There is a greater chance of you having a crash. It may be harder to control blood sugar during times of stress such as fever, infection, injury, or surgery. A change in physical activity, exercise, or diet may also affect blood sugar. Kidney problems have happened with drugs like this one. Sometimes, kidney problems have needed to be treated in the hospital. Dialysis has also been needed. Talk with your doctor. Tell your doctor if you have upset stomach, throwing up, diarrhea, or too much sweating. Losing too much fluid may raise your chance of kidney problems. If you are dehydrated, talk with your doctor. This drug may prevent other drugs taken by mouth from getting into the body. If you take other drugs by mouth, you may need to take them at some other time than this drug. Talk with your doctor. Do not share pen or cartridge devices with another person even if the needle has been changed. Sharing these devices may pass infections from one person to another. This includes infections you may not know you have. Tell your doctor if you are , plan on getting , or are breast-feeding. You will need to talk about the benefits and risks to you and the baby. What are some side effects that I need to call my doctor about right away? WARNING/CAUTION: Even though it may be rare, some people may have very bad and sometimes deadly side effects when taking a drug. Tell your doctor or get medical help right away if you have any of the following signs or symptoms that may be related to a very bad side effect: Signs of an allergic reaction, like rash; hives; itching; red, swollen, blistered, or peeling skin with or without fever; wheezing; tightness in the chest or throat; trouble breathing, swallowing, or talking; unusual hoarseness; or swelling of the mouth, face, lips, tongue, or throat. Signs of a pancreas problem (pancreatitis) like very bad stomach pain, very bad back pain, or very bad upset stomach or throwing up. Signs of kidney problems like unable to pass urine, change in how much urine is passed, blood in the urine, or a big weight gain. Change in eyesight. Low blood sugar can happen. The chance may be raised when this drug is used with other drugs for diabetes. Signs may be dizziness, headache, feeling sleepy or weak, shaking, fast heartbeat, confusion, hunger, or sweating. Call your doctor right away if you have any of these signs. Follow what you have been told to do for low blood sugar. This may include taking glucose tablets, liquid glucose, or some fruit juices. What are some other side effects of this drug? All drugs may cause side effects. However, many people have no side effects or only have minor side effects. Call your doctor or get medical help if any of these side effects or any other side effects bother you or do not go away: Not hungry. Feeling tired or weak. It is common to have diarrhea, upset stomach, throwing up, or stomach pain with this drug. Call your doctor if any of these side effects get very bad, bother you, or do not go away. These are not all of the side effects that may occur. If you have questions about side effects, call your doctor. Call your doctor for medical advice about side effects. You may report side effects to your national health agency. How is this drug best taken? Use this drug as ordered by your doctor. Read all information given to you. Follow all instructions closely. It is given as a shot into the fatty part of the skin on the top of the thigh, belly area, or upper arm. If you will be giving yourself the shot, your doctor or nurse will teach you how to give the shot. Be sure you know how to use this drug. Read the instructions for use that come with this drug. If there are no instructions for use or you have any questions about how to use this drug, talk with the doctor or pharmacist. Take with or without food. Drink lots of noncaffeine liquids unless told to drink less liquid by your doctor. Take the same day each week. Do not use if the solution is cloudy, leaking, or has particles. Do not use if solution changes color. Wash your hands before and after use. Move site where you give the shot each time. If you are also using insulin, you may inject this drug and the insulin in the same area of the body but not right next to each other. Do not mix this drug in the same syringe with insulin. Keep taking this drug as you have been told by your doctor or other health care provider, even if you feel well. Throw away needles in a needle/sharp disposal box. Do not reuse needles or other items. When the box is full, follow all local rules for getting rid of it. Talk with a doctor or pharmacist if you have any questions. What do I do if I miss a dose? Take a missed dose as soon as you think about it. If it is less than 3 days (72 hours) until your next dose, skip the missed dose. Take your next dose on your normal day. Do not take 2 doses at the same time or extra doses. How do I store and/or throw out this drug? Store in a refrigerator. Do not freeze. Do not use if it has been frozen. If needed, you may store at room temperature for up to 14 days. Write down the date you take this drug out of the refrigerator. If stored at room temperature and not used within 14 days, throw this drug away. Store in the original container to protect from light. Protect from heat. Keep all drugs in a safe place. Keep all drugs out of the reach of children and pets. Throw away unused or drugs. Do not flush down a toilet or pour down a drain unless you are told to do so. Check with your pharmacist if you have questions about the best way to throw out drugs. There may be drug take-back programs in your area. General drug facts If your symptoms or health problems do not get better or if they become worse, call your doctor. Do not share your drugs with others and do not take anyone else's drugs. Some drugs may have another patient information leaflet. If you have any questions about this drug, please talk with your doctor, nurse, pharmacist, or other health care provider. If you think there has been an overdose, call your poison control center or get medical care right away. Be ready to tell or show what was taken, how much, and when it happened. Last Reviewed [id number] Consumer Information Use and Disclaimer This generalized information is a limited summary of diagnosis, treatment, and/or medication information. It is not meant to be comprehensive and should be used as a tool to help the user understand and/or assess potential diagnostic and treatment options. It does NOT include all information about conditions, treatments, medications, side effects, or risks that may apply to a specific patient. It is not intended to be medical advice or a substitute for the medical advice, diagnosis, or treatment of a health care provider based on the health care provider's examination and assessment of a patient's specific and unique circumstances. Patients must speak with a health care provider for complete information about their health, medical questions, and treatment options, including any risks or benefits regarding use of medications. This information does not endorse any treatments or medications as safe, effective, or approved for treating a specific patient. [employer]. and its affiliates disclaim any warranty or liability relating to this information or the use thereof. The use of this information is governed by the Terms of Use, available at [email or web address] 04/26/2024 8:07 PM Signed Some documentation from previous visit of 12/21/2023 was copied and pasted, documentation has been reviewed and edited as necessary for today's visit. Patient Summary: Jocelyn is a 53 year old Female who presents for follow-up evaluation of obesity/weight management to treat and prevent related co-morbidities. In our previous visits we have discussed lifestyle intervention including a nutrition recommendations and physical activity optimization. Her last office visit was 4.5 months ago. Assessment/plan from last visit: - Bupropion 300 XL for NADIRA and depression per PCP - Metformin ER 500 mg - 1 gm at dinner - denied [facility] Sleep study [facility] [place]. Appeal was approved on 12/19/23 and scheduled for next week. Consult to BMI - considering if unsuccessful at weight loss Interval History PT specifies the following items as new or significant updates since the last appointment: Stepfather passed. Going through divorce - seeing counselor. Stress eating - Cravings after dinner Weight loss since last vist:+11 lbs. Date: Weight: BMI: Medications: 04/26/2024 311 lb 53.95 Trulicity 12/21/2023 301 lb 52.22 denied 11/01/2023 300 lb 52.04 Metformin ER 500 mg 5% weight loss = 0 lbs, 10% weight loss = 0 lbs Anti-obesity medications: Metformin ER Benefit:slight increased fullness Adverse effects: none Weight promoting medications: Other Cymbalta Inhaled steroid Previous Diet (initial appointment): Awake - 0600 B - 08 coffee with vanilla FF 1 tsp creamer S - none L - 11-12 lunch meat sandwich on wheat with orange or grapes and lemonade or OJ S - none D - 4 pm protein, sometimes breaded and sometimes with gravy/potato or rice/salad or vegetable water or Sprite S - 6 pm fruit or veg in [place] or cookie or chips Fluids: coffee with vanilla FF 1 tsp creamer, lemonade, OJ, regular pop 1 per day, regular Gatorade, regular Body [place] and water Bedtime - 9 pm Quality of diet: 24hr recall suggests unhealthy diet. Characterization of diet:Structured, unhealthy snacking, evening snacking, and increased consumption of sugar sweetened beverages. 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 Sometimes dessert - bereket food cake (large portions if under stress) S - 7 pm cookie or chips or apple with PB - stress and emotional eating Fluids - water, powerade zero and regular Current Barriers: emotional eating, stress eating, food cravings, large portion sizes, grazing/irregular meal patterns, excessive hunger/lack of satiety signals, and lack of motivation Exercise: increased Regular exercise: walking around block, up and down steps Strength/resistance exercise:yes Barriers to regular exercise? yes left knee pain (seeing Dr. Maher) Work-related activity:Sedentary. Gym Membership: no Activity Tracker: yes, but not currently using average steps per day ? Stress: increased Financial and Personal Sleep: increased 6-7 hours - tosses and turns because of leg pain. DRE YES ; CPAP Ordered but did not have insurance at the time so did not get equipment due to cost . Appeal approved - appt at [facility] next week Estimated Creatinine Clearance: 113.8 mL/min (based on SCr of 0.81 mg/dL). PAST MEDICAL HISTORY Diagnosis Date Allergic rhinitis, cause unspecified 09/10/2008 Arthritis Arthritis of knee 10/30/2020 Asthma Benign neoplasm of left breast 2018 COVID-19 virus infection 10/14/2021 10/14/2021 Environmental allergies Never formally tested. Sneezes, itches around cats. Excessive or frequent menstruation Heavy periods Fatty liver 01/04/2022 Noted on US 12/2021 Gastroesophageal reflux disease without esophagitis 09/10/2008 Hemorrhage of gastrointestinal tract, unspecified 05/10/2014 Irregular menstrual cycle Irregular periods Liver cyst 01/08/2022 MRI: 12/2021 Mild persistent asthma without complication 12/11/2008 Obesity, Class III, BMI >= 40 (morbid obesity) E66.01 12/03/2016 Pneumonia 2008 Required intubation Restless leg syndrome 10/30/2020 Shortness of breath 2007 Was on a ventolator with pneumonia Situational depression 09/28/2022 Tonsil asymmetry 03/04/2018 Lt at 2+ Rt normal. chronic Well adult exam 09/01/2018 Done 10/30/2020 Current Outpatient Medications Medication Sig Dispense Refill doxycycline (VIBRA-TABS) 100 mg tablet Take 1 tablet by mouth two times a day for 7 days. 14 tablet 0 DULoxetine (CYMBALTA) 30 mg capsule Take 1 capsule by mouth once daily. 60 capsule 0 rOPINIRole (REQUIP) 0.5 mg tablet Take 1 tablet by mouth daily at bedtime. Take with 1mg tab for total of 1.5mg. 60 tablet 0 rOPINIRole (REQUIP) 1 mg tablet Take 1 tablet by mouth daily at bedtime. 60 tablet 0 omeprazole (PRILOSEC) 20 mg capsule TAKE TWO CAPSULES BY MOUTH ONCE DAILY BEFORE BREAKFAST 180 capsule 1 cyclobenzaprine (FLEXERIL) 10 mg tablet Take 1 tablet by mouth three times a day as needed for muscle spasm. 30 tablet 0 buPROPion XL (WELLBUTRIN XL) 300 mg 24 hr tablet Take 1 tablet by mouth once daily. 90 tablet 1 celecoxib (CELEBREX) 200 mg capsule Take 1 capsule by mouth once daily. 30 capsule 5 montelukast (SINGULAIR) 10 mg tablet Take 1 tablet by mouth daily at bedtime. 30 tablet 5 cyanocobalamin (VITAMIN B-12) 1,000 mcg tab Take 1,000 mcg by mouth once daily. cholecalciferol (VITAMIN D-3) 400 unit tab Take 400 Units by mouth once daily. metFORMIN ER (GLUCOPHAGE XR) 500 mg 24 hr tablet Take 2 tablets by mouth daily with dinner. 180 tablet 1 mometasone-formoterol (DULERA) 200-5 mcg/actuation inhaler Inhale 2 Puffs as instructed two times a day. 18 g 11 loratadine (CLARITIN) 10 mg tablet Take 1 tablet by mouth once daily as needed. FOR ALLERGY SYMPTOMS 30 tablet 11 albuterol HFA (PROVENTIL HFA, VENTOLIN HFA) 90 mcg/actuation inhaler INHALE 2 PUFFS BY MOUTH EVERY 6 HOURS NEEDED FOR SHORTNESS OF BREATH AND WHEEZING 1 Each 5 Nebulizer Accessories kit Provide 1 kit. 1 Each 4 albuterol (PROVENTIL) 2.5 mg /3 mL (0.083 %) nebulizer solution Use 3 mL via nebulizer every 4 hours as needed for wheezing/shortness of breath. Use over 5-15minutes. 360 mL 3 fluticasone (FLONASE) 50 mcg/actuation nasal spray Use 1 [place] in each nostril once daily. 1 Each 5 promethazine (PHENERGAN) 25 mg tablet Take 1 tablet by mouth every 6 hours as needed. 12 tablet 0 ProAir RespiClick 90 mcg/actuation breath activated (albuterol sulfate) Inhale 2 Puffs as instructed every 6 hours as needed. 1 Each 5 No current facility-administered medications for this visit. ROS/Fam Hx pertaining to AOMs: GEN: Fatigue:yes PULM: Asthma:yes GI: GERD:yes Fatty liver disease:yes MSK: Joint Pain:yes Occupation: Unemployed and filing for disability Contraception: hysterectomy BP 151/72 Pulse 86 Wt (!) 141.1 kg (311 lb) LMP 12/01/2010 (Exact Date) SpO2 98% BMI 53.95 kg/m? Physical Exam Constitutional: She appears healthy. No distress. Results: recent labs reviewed with the patient. Latest Ref Rng AND Units 11/07/2023 CMP Sodium 136 - 144 mmol/L 141 Potassium 3.7 - 5.1 mmol/L 4.2 Chloride 98 - 107 mmol/L 106 CO2 22 - 30 mmol/L 24 Glucose 74 - 99 mg/dL 93 BUN 7 - 21 mg/dL 14 Creatinine 0.58 - 0.96 mg/dL 0.81 EGFR >=60 mL/min/1.73m? 89 Protein, Total 6.3 - 8.0 g/dL 6.9 Albumin 3.9 - 4.9 g/dL 4.3 Calcium 8.5 - 10.2 mg/dL 9.6 Bilirubin, Total 0.2 - 1.3 mg/dL 0.2 AST 13 - 35 U/L 17 ALT 7 - 38 U/L 21 Alkaline Phosphatase 34 - 123 U/L 77 Cholesterol, Total (mg/dL) Date Value 11/07/2023 181 03/09/2019 173 Total Cholesterol, Nonfasting (mg/dL) Date Value 10/30/2020 179 HDL Cholesterol (mg/dL) Date Value 11/07/2023 53 03/09/2019 66 HDL Cholesterol, Nonfasting (mg/dL) Date Value 10/30/2020 60 LDL Cholesterol (mg/dL) Date Value 11/07/2023 97 03/09/2019 84 LDL Cholesterol, Nonfasting (mg/dL) Date Value 11/01/2022 89 10/30/2020 89 Triglyceride (mg/dL) Date Value 11/07/2023 155 03/09/2019 113 Triglycerides, Nonfasting (mg/dL) Date Value 10/30/2020 151 Latest Ref Rng AND Units 11/07/2023 CBC WBC 3.70 - 11.00 k/uL 6.23 RBC 3.90 - 5.20 m/uL 4.89 Hemoglobin 11.5 - 15.5 g/dL 12.9 Hematocrit 36.0 - 46.0 % 40.0 MCV 80.0 - 100.0 fL 81.8 MCH 26.0 - 34.0 pg 26.4 MCHC 30.5 - 36.0 g/dL 32.3 RDW-CV 11.5 - 15.0 % 14.0 Platelet Count 150 - 400 k/uL 357 MPV 9.0 - 12.7 fL 9.6 Vitamin D 25 Hydroxy Date Value Ref Range Status 11/07/2023 26.8 (L) 31.0 - 80.0 ng/mL Final Comment: Classification of 25 [place] Vitamin D status: Deficiency/Insufficiency: < or = 30 ng/ml. Sufficiency/Optimal Levels: 31-80 ng/mL Toxicity: > 100 ng/mL. Test performed by chemiluminescent immunoassay. TSH Date Value 11/07/2023 2.290 mIU/L 11/01/2022 1.850 mIU/L 10/08/2019 1.670 uU/mL 11/10/2018 2.560 uU/mL Hemoglobin A1C (%) Date Value 11/07/2023 5.3 11/01/2022 5.0 09/30/2021 5.0 10/30/2020 5.0 03/04/2018 4.7 Insulin Date Value Ref Range Status 11/07/2023 33.4 (H) 3.0 - 25.0 mU/L Final Anti-Obesity Medications >Saxenda/Wegovy/Ozempic: Cost. Ins coverage? Family or personal History of MEN2 or Medullary thyroid cancer: no >Metformin: eGFR > 30. No contraindications or medication interactions. Assessment/Plan: Cinthya Bone is a 53 year old yo with Class III obesity who presented today for follow up for supervised weight loss to treat and prevent related co-morbidities. 1. Gastroesophageal reflux disease without esophagitis - ICD9: 530.81, ICD10: K21.9 (primary diagnosis) -Omeprazole daily - benefits of weight loss - Whole food balanced protein low-carb nutrition 2. DRE (obstructive sleep apnea) - ICD9: 327.23, ICD10: G47.33 -Sleep study done at [facility].CPAP Ordered but did not have insurance at the time so did get equipment due to cost. Sleep study appeal approved and is scheduled for next week - benefits of weight loss - Whole food balanced protein low-carb nutrition - DULAGLUTIDE 0.75 MG/0.5 ML SUBCUTANEOUS PEN INJECTOR 3. Moderate persistent asthma without complication - ICD9: 493.90, ICD10: J45.40 -Treated with Flonase, Singulair, loratadine, albuterol nebulizer and inhaler, Dulera inhaler 4. Hyperinsulinemia - ICD9: 251.1, ICD10: E16.1 - DULAGLUTIDE 0.75 MG/0.5 ML SUBCUTANEOUS PEN INJECTOR 5. Fatty liver - ICD9: 571.8, ICD10: K76.0 - benefits of weight loss - Whole food balanced protein low-carb nutrition 6. Arthritis of knee - ICD9: 716.96, ICD10: M17.10 - benefits of weight loss - Whole food balanced protein low-carb nutrition 7. Encounter for long-term (current) use of medications - ICD9: V58.69, ICD10: Z79.899 - BASIC METABOLIC PANEL 9. Class 3 severe obesity with serious comorbidity and body mass index (BMI) of 50.0 to 59.9 in adult, unspecified obesity type (HCC) - ICD9: 278.01, V85.43, ICD10: E66.813, E66.01, Z68.43 Weight increased Consult to BMI - considering if unsuccessful at weight loss - SEMAGLUTIDE Not covered by insurance - METFORMIN ER 500 MG TABLET,EXTENDED RELEASE 24 HR. - DULAGLUTIDE 0.75 MG/0.5 ML SUBCUTANEOUS PEN INJECTOR - Start Trulicity if covered by insurance plan for hyperinsulinemia, DRE and obesity. Patient is aware this is an off-label use of the medication, however, more affordable than Wegovy which is just a higher dose of a drug in the same class. No personal or family history of medullary thyroid cancer. No personal history of pancreatitis or known allergy. Prescription sent today and detailed instructions on how to use the Trulicity pen provided in the patient instructions. Patient also referred to [email or web address] for injection training video and encouraged to reach out if in-person pen training is needed. - Sleep study done at [facility].CPAP Ordered but did not have insurance at the time so did get equipment due to cost. Sleep study appeal approved and she is scheduled for next week at [facility]. -- We discussed several strategies to track food intake and increase mindfulness around eating will decrease calorie intake. She was counseled on the following: - Recommended whole food balanced protein, controlled carbohydrate nutrition plan. - Given protein, whole food and high protein nutrition lists. -- Encouraged the patient to improve her physical activity as able. An overall goal of 150-200 minutes per week of exercise has been effective in weight loss and maintenance. -- Reviewed that monitoring weight daily and food intake can have a positive impact on overall weight loss and maintenance of weight loss. Activity tracking can be used to stay on target for exercise however should not be used to reward oneself She understands that there can be limitations of pharmacotherapy due to contraindications, side effects and cost. Patient was told to contact her insurance company to see what AOMs and supervised behavioral medical appointments are currently covered. Patient understands she will have more success when following a healthy lifestyle. We reviewed continued use of online tracking of daily weights, food journal and if desired physical activity. We reviewed that during management she is to report any concerning side effects of any pharmacotherapy she is placed on. She understands that she will need routine follow up in the office. Prior to any virtual visits in the future she will need to check her Blood pressure, weight, and pulse. Prescription instructions reviewed with patient as applicable. Potential red flag symptoms discussed with the patient. Reviewed appropriate action plan to take if red flag symptoms occur. Patient agreeable to treatment plan. Follow up in 4 weeks Jennifer Ratliff CNP Advanced Education from the [employer] I spent a total of 53 minutes on the date of the service which included preparing to see the patient, [id number] patient care, completing clinical documentation, obtaining and/or reviewing separately obtained history, performing a medically appropriate examination, counseling and educating the patient/family/caregiver, and ordering medications, tests, or procedures. Allergies As of Date: 04/26/2024 Noted Allergy Reaction CATS 2011 7 - Swelling Comments: rash Date Reviewed: 04/26/2024 Reviewed by: Jennifer Ratliff APRN.DAKOTA - Fully Assessed Reason for Visit: Weight Management [3933] Primary Visit Diagnosis:Gastroesophageal reflux disease without esophagitis [K21.9] Other Visit Diagnoses:DRE (obstructive sleep apnea) [G47.33] Moderate persistent asthma without complication [J45.40] Hyperinsulinemia [E16.1] Fatty liver [K76.0] Arthritis of knee [M17.10] Encounter for long-term (current) use of medications [Z79.899] Class 3 severe obesity with serious comorbidity and body mass index (BMI) of 50.0 to 59.9 in adult, unspecified obesity type (HCC) [E66.813, E66.01, Z68.43] Order(s):BASIC METABOLIC PANEL [SQBMP] Order #: [id number] FUTURE dulaglutide (TRULICITY) 0.75 mg/0.5 mL pen injectorInject 0.75 mg subcutaneously one time a week for 28 days.Disp: 2 mLRfl: 0 Prescriptions as of 04/26/2024 - dulaglutide (TRULICITY) 0.75 mg/0.5 mL pen injector Inject 0.75 mg subcutaneously one time a week for 28 days. - DULoxetine (CYMBALTA) 30 mg capsule Take 1 capsule by mouth once daily. - rOPINIRole (REQUIP) 0.5 mg tablet Take 1 tablet by mouth daily at bedtime. Take with 1mg tab for total of 1.5mg. - rOPINIRole (REQUIP) 1 mg tablet Take 1 tablet by mouth daily at bedtime. - omeprazole (PRILOSEC) 20 mg capsule TAKE TWO CAPSULES BY MOUTH ONCE DAILY BEFORE BREAKFAST - cyclobenzaprine (FLEXERIL) 10 mg tablet Take 1 tablet by mouth three times a day as needed for muscle spasm. - buPROPion XL (WELLBUTRIN XL) 300 mg 24 hr tablet Take 1 tablet by mouth once daily. - celecoxib (CELEBREX) 200 mg capsule Take 1 capsule by mouth once daily. - montelukast (SINGULAIR) 10 mg tablet Take 1 tablet by mouth daily at bedtime. - cyanocobalamin (VITAMIN B-12) 1,000 mcg tab Take 1,000 mcg by mouth once daily. - cholecalciferol (VITAMIN D-3) 400 unit tab Take 400 Units by mouth once daily. - metFORMIN ER (GLUCOPHAGE XR) 500 mg 24 hr tablet Take 2 tablets by mouth daily with dinner. - mometasone-formoterol (DULERA) 200-5 mcg/actuation inhaler Inhale 2 Puffs as instructed two times a day. - loratadine (CLARITIN) 10 mg tablet Take 1 tablet by mouth once daily as needed. FOR ALLERGY SYMPTOMS - albuterol HFA (PROVENTIL HFA, VENTOLIN HFA) 90 mcg/actuation inhaler INHALE 2 PUFFS BY MOUTH EVERY 6 HOURS NEEDED FOR SHORTNESS OF BREATH AND WHEEZING - Nebulizer Accessories kit Provide 1 kit. - albuterol (PROVENTIL) 2.5 mg /3 mL (0.083 %) nebulizer solution Use 3 mL via nebulizer every 4 hours as needed for wheezing/shortness of breath. Use over 5-15minutes. - fluticasone (FLONASE) 50 mcg/actuation nasal spray Use 1 [place] in each nostril once daily. - promethazine (PHENERGAN) 25 mg tablet Take 1 tablet by mouth every 6 hours as needed. - ProAir RespiClick 90 mcg/actuation breath activated (albuterol sulfate) Inhale 2 Puffs as instructed every 6 hours as needed. Problem List As Of Date 04/26/2024 Noted Resolved Shortness of breath [R06.02] 01/13/2011 Pneumonia, organism unspecified [J18.9] 07/15/2006 01/13/2011 Acute respiratory failure [J96.00] 07/15/2006 01/13/2011 ACUTE URI NOS [J06.9] 08/07/2007 09/10/2008 Gastroesophageal reflux disease without esophag*09/10/2008 Allergic rhinitis [J30.9] 09/10/2008 Moderate persistent asthma without complication*12/11/2008 Environmental allergies [Z91.09] Obesity, Class III, BMI >= 40 (morbid obesity) *12/03/2016 Irritable mood [R45.4] 03/04/2018 Post menopausal syndrome [N95.1] 03/04/2018 Tonsil asymmetry [J35.8] 03/04/2018 Encounter for screening for diabetes mellitus [*03/04/2018 Well adult exam [Z00.00] 09/01/2018 Medication management [Z79.899] 09/01/2018 Arthritis of knee [M17.10] 10/30/2020 Restless leg syndrome [G25.81] 10/30/2020 COVID-19 virus infection [U07.1] 10/14/2021 Fatty liver [K76.0] 01/04/2022 Liver cyst [K76.89] 01/08/2022 Situational depression [F43.21] 09/28/2022 DRE (obstructive sleep apnea) [G47.33] 11/01/2023 Class 3 severe obesity with serious comorbidity*12/21/2023 Hyperinsulinemia [E16.1] 12/21/2023 Other instructions from your clinician: - Whole food balanced protein, controlled carbohydrate nutrition plan - 30 g of protein 3 times a day and up to 30 g of carbs at lunch and dinner only. Breakfast - 30 gm protein with limit of 2 gm carbohydrates. Options include: Premier Protein or generic 30 gm protein 1 gm sugar or 5 eggs or 2-3 eggs and some unbreaded meat and/or cheese. No fruit, vegetables, bread, grain, yogurt, Smoothies, etc. Lunch and dinner - 30 gm protein is the goal with less than 30 gm carbohydrates Snacks - all protein or more protein than carbs Protein - no carbs Egg 1 large - 6g Egg white 1 large 3.6g 3 oz is approximately the size of a deck of cards and equals 21 g protein so 4 oz is 28 gm protein Beef, Chicken, Gail, Pork, Gamble 1 oz 7g Fish, Tuna Fish 1 oz 7g (Starkist tuna packet 2.6 oz 17 gm protein) Seafood (Crabmeat, Shrimp, Lobster) 1 oz 6g Protein shakes (read labels) Premier Protein or generic [employer] Equate, [employer] High Performance- 30g protein AND 1g carb - meal replacement Premier Protein powder or generic- 30 gm protein, 1g carb Premier Protein plant protein powder - 25 gm protein, 0 sugar/2 carb Vanilla and chocolate (not a meal replacement) Fairlife 30 gram protein - 30g protein AND 3g carb BOOST Glucose Control Max 30g Protein Nutritional Drink - 30g protein AND 1 carb - meal replacement Slimfast High Protein - 20g protein AND 1g carb Ensure Max Protein Nutrition Shake 30g protein AND 2 carb Protein AND carbs Beef/Gail Jerky 1 oz dried 10-15g protein - check carb count, can be high if sugar added Slim Nikolay - 6 gm protein and 4 net carb Great Value original turkey sausage sticks - 7 gm protein and 2 gm carb Natali AND Alex (at [facility]) Original smoked sausage sticks - 8 gm protein and 0 carb Imitation Crab Meat 1 oz - 2g protein AND 4g carb Milk, skim 2% or 1% 8 oz - 8g protein AND 12g carb Fairlife 2% milk 8 oz -13 g protein AND 6g carb Mozambican yogurt Full Fat Moz[place]ican Yogurt 1 cup - 20.4g protein AND 9.1g carb 2% [place] Yogurt 1 cup - 22.7g protein AND 9.1g carb 0% (fat-free) Mozambican Yogurt - 1 cup 24g protein AND 9.3g carb Aldi Protein Mozambican yogurt single svg - 13/g15g protein AND 7g carb Chobani Zero Sugar single svg: - 12g protein AND 5g carb Dannon Mozambican Light + Fit 1 single svg - 12g protein AND 9g carb Oikos Pro single svg - 20g protein AND 8g carb Oikos Triple Zero Moz[place]ican Nonfat Yogurt 1 single svg - 15g protein AND 7g carb Oikos Pro drinkable yogurt 1 single svg - 23 g protein AND 8 g carb :ratio, KETO Friendly Dairy Snack 1 single svg - 15g protein AND 2g carb :ratio Protein 1 single svg - 25g protein AND 8g carb Two Good Lowfat Mozambican Yogurt, [place], Lower Sugar - 12g protein AND 2g carb Yoplait Protein 1 single svg 15gm protein AND 5gm carb Dairy Free - [place] unsweetened Mozambican almond/soy 15 gm protein AND 3 gm carb Dairy Free - True Goodness by [facility] coconut-based yogurt alternative 1 gm protein 1 gm net carb 180 uma Cheese each oz Brie 5.9g protein AND 0.1g carb Cheddar 7g protein AND 0.4g carb Addison 6.7g protein AND 0.7g carb Cream Cheese 1.7g protein AND 1.2g carb Feta 4g protein AND 1.2g carb Mozzarella 6.3g protein AND 0.6g carb Parmesan 10g protein AND 0.9g carb Eritrean 7.6g protein AND 1.5g carb Cottage Cheese 1/2 c Breakstone 2% 13g protein 7g carb Lorrie 2% 13g protein 5 g carb Good Culture 2% 14g protein 3g carb Delgado?s Low Fat 12g protein AND 4g carb Legumes Lentils ? cup 9g protein AND 20g carb [place] beans ? cup 7g protein AND 20g carb Kidney, Black, [place], Cannellini beans ? cup 8g protein AND 20g carb Soybeans 1/2 c 14g complete protein AND 8.5g carb [place] milk, unsweetened 8 oz 1g protein AND 2g carb Soy milk 8 oz 3.5g protein AND 1.6g carb Tofu 1/2 cup 10g protein AND 2.3g carb Peanut butter, natural 2 Tbsp 7-8g protein AND 4g net carbs, 190 calories PB2 powder 2 Tbsp 6g protein AND 5g carb Nuts and Seeds per oz Almonds - 5.9g protein AND 6.1g carb [place] Nuts - 4.0g protein AND 3.4g carb Cashews - 5.1g protein AND 9.2g carb Hazelnuts - 4.2g protein AND 4.7g carb Hemp seeds/hearts 3 T/30 gms - 9.5 gm complete protein and 2.5 gm carb Peanuts - 7g protein AND 4.6g carb Pecans - 2.6g protein AND 3.9g carb Pistachios - 5.8g protein AND 7.8g carb Pumpkin Seeds - 6.9g protein AND 5g carb [place] Seeds - 5.8g protein AND 5.6g carb Walnuts - 4.3g protein AND 3.8g carb Edamame Beans (soybean) snack 1 pack 11 gm complete protein 2 carb 5 (FIVE) gram carb vegetable options 1 cup raw OR ? cup cooked: Asparagus Bur[place]on sprouts Beets Broccoli Brussel sprouts Cabbage Carrots Cauliflower Celery [place] Eggplant Green beans Lettuce Peppers Snap peas Spaghetti squash Spinach Tomato Turnips Zucchini 15 gram carb vegetable options ? cup cooked corn or hominy ? corn on the cob, large (5 oz) ? cup cooked green peas 4.3 gm complete protein ? cup cooked cortes beans 1 small potato or sweet potato ? cup cooked potato, plain ? cup cooked sweet potato, plain 1 cup winter squash (pumpkin, acorn, butternut) 1 cup marinara or pasta sauce - check label ? cup tomato juice ? cup tomato puree Beans, Seeds, Nuts ? cup cooked beans (kidney, bryant, red, green, etc.) ? cup cooked lentils ? cup baked beans 4 tablespoons nut butter <15 gram carb fruit options Berries have the lowest sugar content 1/2 medium apple - 12.5 carbs 1/2 medium avocado - 6.5 gm carbs 1/2 medium banana - 15 carbs 1/2 cup blueberries - 11 carbs - may actually help you lose weight 1/2 cup fresh cherries -11 carbs 1 medium Nicolette -9 carbs 1/2 cup fresh cranberries - 6.5 carbs 1/2 c grapes - 15 carbs 1/2 medium grapefruit - 10.5 carbs 1/2 cup diced honeydew melon - 8 carbs 1 medium kiwi without skin - 11 carbs 1/2 cup sliced lynda -14 carbs 1 medium nectarine - 15 carbs 1 medium orange -15.5 carbs 1 medium peach -14.5 carbs 1/2 cup fresh pineapple -11 carbs 1 medium plum -7.5 carbs 1 prune - 6 carbs 1/4 c raisins - 31.25 carbs 1/2 cup raspberries -7.5 carbs 1/2 c strawberries - 12.7 carbs 1 medium tangerine -12 carbs 1/2 cup diced watermelon - 6 carbs Grains Brown rice 1/2 c 5.5g protein 24 carb White long-grain rice 1/2 c 2g protein 22.5 carb Quinoa 1/2 c 4 gm complete protein 25 carb Oatmeal, old fashioned 1/2 c 5g protein 27g carb High Protein Snack Ideas 1. Jerky 2. [place] mix without dried fruit 3. Gail roll-ups 4. Mozambican yogurt 5. Veggies and yogurt dip 6. Tuna 7. Hard-boiled eggs 8. Peanut butter with celery 9. Cheese slices/ Cheese Stick 10. Handful of almonds, peanuts or walnuts 11. Cottage Cheese 12. Beef sticks 13. Protein bars 14. Canned [place] 15. Pumpkin seeds 16. Nut butter 17. Protein shakes 18. Avocado and chicken salad 19. Egg muffins 20. Leftover protein or lunch meat 21. 1/2 c blended cottage cheese or Mozambican yogurt with dry ranch/Mrs. Dash/herb seasoning mix to make protein dip 22. 1/2 c blended cottage cheese with 1 Tbsp sugar-free dry cheesecake pudding mix 12g protein 10 carb 23. Pudding - 1 30 gm protein shake with 1/2 pkg sugar-free pudding 4 svgs - 7.8 gm protein, 5 carb each svg 24. SF Sunkist or Root Beer with 1-2 Tablespoons heavy whipping cream 25. Mini frozen dessert bites - layer protein yogurt, skinny syrup and crushed nuts and freeze HOW DOES CHRONIC STRESS AFFECT EATING PATTERNS? Chronic stress can affect the body?s use of calories and nutrients in various ways. It raises the body?s metabolic needs and increases the use and excretion of many nutrients. If one does not eat a nutritious diet, a deficiency may occur.Stress also creates a chain reaction of behaviors that can negatively affect eating habits, leading to other health problems down the road. Stress places a greater demand on the body for oxygen, energy, and nutrients. Yet people who experience chronic stress may crave comforting foods such as highly processed snacks or sweets, which can be high in unhealthy fats, sugar, and calories but low in micronutrients. People feeling stress may lack the time or motivation to prepare nutritious, balanced meals, or may skip or forget to eat meals. Stress can disrupt sleep by causing construction trench digger sleep or more frequent awakenings, which leads to fatigue during the day. In order to cope with daytime fatigue, people may use stimulants to increase energy such as with caffeine or high-calorie snack foods. The reverse may also be true that poor-quality sleep is itself a stressor. Studies have found that sleep restriction causes a significant increase in cortisol levels. During acute stress, adrenaline suppresses the appetite.But with chronic stress, elevated levels of cortisol may cause cravings, particularly for foods high in sugar, fat, and calories, which may then lead to weight gain. Cortisol favors the accumulation of fat in the belly area, also called central adiposity, which is associated with insulin resistance and an increased risk of type 2 diabetes, cardiovascular disease, and certain breast cancers.4,6-8 It also lowers levels of the hormone leptin (that promotes satiety) while increasing the hormone ghrelin (that increases appetite). https://cdn1.sph.[place].edu/wp-content/uploads/sites//HeatlhyLiv nacYqwek58-07.1.pdf Meditation/Mindfulness Apps: Biofortuna timer https://[employer]Enduring Hydro/ Calm ($60/year) https://www.calm.com/ Mindful Moments (Free [facility]) https://BankBazaar.com.Sudiksha.Capical/mobile-apps/huznvq-yttb-uok-marcus Podcasts: The Happiness Lab https://www.happinesslab.LoanLogics/, 10% Happier https://www.[facility] [employer] [facility]/podcast Following are six relaxation techniques that can help you evoke the relaxation response and reduce stress. 1. Breath focus. In this simple, powerful technique, you take long, slow, deep breaths (also known as abdominal or belly breathing). As you breathe, you gently disengage your mind from distracting thoughts and sensations. Breath focus can be especially helpful for people with eating disorders to help them focus on their bodies in a more positive way. However, this technique may not be appropriate for those with health problems that make breathing difficult, such as respiratory ailments or heart failure. 2. Body scan. This technique blends breath focus with progressive muscle relaxation. After a few minutes of deep breathing, you focus on one part of the body or group of muscles at a time and mentally releasing any physical tension you feel there. A body scan can help boost your awareness of the mind-body connection. If you have had a recent surgery that affects your body image or other difficulties with body image, this technique may be less helpful for you. 3. Guided imagery. For this technique, you conjure up soothing scenes, places, or experiences in your mind to help you relax and focus. You can find free apps and online recordings of calming scenes--just make sure to choose imagery you find soothing and that has personal significance. Guided imagery may help you reinforce a positive vision of yourself, but it can be difficult for those who have intrusive thoughts or find it hard to conjure up mental images. 4. Mindfulness meditation. This practice involves sitting comfortably, focusing on your breathing, and bringing your mind's attention to the present moment without drifting into concerns about the past or the future. This form of meditation has enjoyed increasing popularity in recent years. Research suggests it may be helpful for people with anxiety, depression, and pain. 5. Yoga, ludwin chi, and qigong. These three ancient arts combine rhythmic breathing with a series of postures or flowing movements. The physical aspects of these practices offer a mental focus that can help distract you from racing thoughts. They can also enhance your flexibility and balance. But if you are not normally active, have health problems, or a painful or disabling condition, these relaxation techniques might be too challenging. Check with your doctor before starting them. 6. Repetitive prayer. For this technique, you silently repeat a short prayer or phrase from a prayer while practicing breath focus. This method may be especially appealing if hindu or spirituality is meaningful to you. Rather than choosing just one technique, experts recommend sampling several to see which one works best for you. Try to practice for at least 20 minutes a day, although even just a few minutes can help. But the longer and the more often you practice these relaxation techniques, the greater the benefits and the more you can reduce stress. https://www.[facility].[place]/cmel-vig-fdqh/ute-kpdortbmhd-aetqixyapv-to-r educe-stress DULAGLUTIDE (Trulicity) - The medication comes in a once weekly, single-dose pen. - The most common adverse reactions reported in >=5% of Trulicity-treated patients in trials were nausea, diarrhea, vomiting, abdominal pain, decreased appetite, dyspepsia, and fatigue.The side effects are usually transient in nature. Please reach out for assistance in managing these symptoms if they persist and are bothersome. Side effects typically occur 1-3 days after the injection, when starting the medication, and with dose increases. With this in mind consider timing the injection like on a Tuesday night, so if you have side effects they will occur on the weekend versus while you are at work. -- We should have further discussions about taking this medication if you have a history of a pancreatitis, a disease called MEN2, or you or a family member has had medullary thyroid cancer. -- please inform me immediately if you are or plan to become . -- Although rare, there is an increased risk for inflammation of the pancreas (pancreatitis), gallbladder problems (including gallstones), low blood sugar (typically when combined with a medication called a sulfonurea), acute kidney injury (bwith nausea/vomiting and resulting dehydration), diabetic retinopathy (damage to the eye's retina), increased heart rate, and suicidal behavior or thinking. -- Please reach out if in-person pen training is needed. -- Keep medication refrigerated. It is good for 2 weeks out of the refrigerator as long as it had not been in high temperatures or direct sunlight. Instructions for Use Trulicity Patient Education How to use the pen: What is Trulicity AND Easy To Use Pen Trulicity (dulaglutide) Full medication guide: Trulicity What Is Trulicity? Trulicity is a brand-name prescription drug that belongs to the drug class glucagon-like peptide-1 (GLP-1) agonists. Trulicity is available as a liquid solution self-injectable medication. It is a pre-filled, disposable, single-use injection pen. Can Trulicity Be Used for Weight Loss? While Trulicity is not a weight loss drug, Similar drugs in the same class of medication called GLP1's have recently been approved for weight loss by the FDA. These drugs are named Wegovy and Saxenda. The medication will be delivered as a once-weekly shot, in combination with diet and exercise. How Does Trulicity for Weight Loss Work? Trulicity is in a drug class called GLP-1 agonists that are used to control blood sugar, and can be taken to assist in weight loss. This drug works by - Slowing down how fast your stomach empties food - Blocking hormones that cause the liver to release sugar - Together, these combined actions cause the feeling of hunger to decrease, which leads to eating less, and finally, weight loss. How Long Does It Take for Trulicity to Work for Weight Loss? Results vary from person to person with Ozempic. Some people may have a quick initial weight drop; for others, it may take more time. Trulicity has been shown to help people lose weight in a safe, long-term, and healthy way. A [facility] doctor will help you with dosages of Trulicity for weight loss and might recommend slowly increasing dosage over time to maximize weight loss. The speed at which you lose weight is largely influenced by the amount of lifestyle changes you are able to make: there is no magic weight loss drug on the market. It?s important to remember that weight loss takes time, and you?ll have the best results if you use Trulicity in combination with exercise and a healthy diet. Trulicity for Weight Loss Dulaglutide: Patient drug information Access [employer] Online for additional drug information, tools, and databases. Copyright 3577-7045 [employer]. All rights reserved. (For additional information see Dulaglutide: Drug information) You must carefully read the Consumer Information Use and Disclaimer below in order to understand and correctly use this information. Brand Names: [place] Trulicity Brand Names: Luis Felipe Trulicity Warning Drugs like this one have been shown to cause thyroid cancer in some animals. It is not known if this drug may cause thyroid cancer in humans. Call your doctor right away if you have a neck mass, trouble breathing, trouble swallowing, or hoarseness that will not go away. Do not use this drug if you have a health problem called Multiple Endocrine Neoplasia syndrome type 2 (MEN 2), or if you or a family member have had thyroid cancer. What is this drug used for? It is used to lower blood sugar in patients with high blood sugar (diabetes). It is used to lower the chance of heart attack, stroke, and in some people. What do I need to tell my doctor BEFORE I take this drug? If you are allergic to this drug; any part of this drug; or any other drugs, foods, or substances. Tell your doctor about the allergy and what signs you had. If you have any of these health problems: Type 1 diabetes or stomach or bowel problems. If you have ever had pancreatitis. If the patient is a child. Do not give this drug to a child. This is not a list of all drugs or health problems that interact with this drug. Tell your doctor and pharmacist about all of your drugs (prescription or OTC, natural products, vitamins) and health problems. You must check to make sure that it is safe for you to take this drug with all of your drugs and health problems. Do not start, stop, or change the dose of any drug without checking with your doctor. What are some things I need to know or do while I take this drug? Tell all of your health care providers that you take this drug. This includes your doctors, nurses, pharmacists, and dentists. Follow the diet and workout plan that your doctor told you about. Wear disease medical alert ID (identification). Check your blood sugar as you have been told by your doctor. Have blood work checked as you have been told by the doctor. Talk with the doctor. Do not drive if your blood sugar has been low. There is a greater chance of you having a crash. It may be harder to control blood sugar during times of stress such as fever, infection, injury, or surgery. A change in physical activity, exercise, or diet may also affect blood sugar. Kidney problems have happened with drugs like this one. Sometimes, kidney problems have needed to be treated in the hospital. Dialysis has also been needed. Talk with your doctor. Tell your doctor if you have upset stomach, throwing up, diarrhea, or too much sweating. Losing too much fluid may raise your chance of kidney problems. If you are dehydrated, talk with your doctor. This drug may prevent other drugs taken by mouth from getting into the body. If you take other drugs by mouth, you may need to take them at some other time than this drug. Talk with your doctor. Do not share pen or cartridge devices with another person even if the needle has been changed. Sharing these devices may pass infections from one person to another. This includes infections you may not know you have. Tell your doctor if you are , plan on getting , or are breast-feeding. You will need to talk about the benefits and risks to you and the baby. What are some side effects that I need to call my doctor about right away? WARNING/CAUTION: Even though it may be rare, some people may have very bad and sometimes deadly side effects when taking a drug. Tell your doctor or get medical help right away if you have any of the following signs or symptoms that may be related to a very bad side effect: Signs of an allergic reaction, like rash; hives; itching; red, swollen, blistered, or peeling skin with or without fever; wheezing; tightness in the chest or throat; trouble breathing, swallowing, or talking; unusual hoarseness; or swelling of the mouth, face, lips, tongue, or throat. Signs of a pancreas problem (pancreatitis) like very bad stomach pain, very bad back pain, or very bad upset stomach or throwing up. Signs of kidney problems like unable to pass urine, change in how much urine is passed, blood in the urine, or a big weight gain. Change in eyesight. Low blood sugar can happen. The chance may be raised when this drug is used with other drugs for diabetes. Signs may be dizziness, headache, feeling sleepy or weak, shaking, fast heartbeat, confusion, hunger, or sweating. Call your doctor right away if you have any of these signs. Follow what you have been told to do for low blood sugar. This may include taking glucose tablets, liquid glucose, or some fruit juices. What are some other side effects of this drug? All drugs may cause side effects. However, many people have no side effects or only have minor side effects. Call your doctor or get medical help if any of these side effects or any other side effects bother you or do not go away: Not hungry. Feeling tired or weak. It is common to have diarrhea, upset stomach, throwing up, or stomach pain with this drug. Call your doctor if any of these side effects get very bad, bother you, or do not go away. These are not all of the side effects that may occur. If you have questions about side effects, call your doctor. Call your doctor for medical advice about side effects. You may report side effects to your national health agency. How is this drug best taken? Use this drug as ordered by your doctor. Read all information given to you. Follow all instructions closely. It is given as a shot into the fatty part of the skin on the top of the thigh, belly area, or upper arm. If you will be giving yourself the shot, your doctor or nurse will teach you how to give the shot. Be sure you know how to use this drug. Read the instructions for use that come with this drug. If there are no instructions for use or you have any questions about how to use this drug, talk with the doctor or pharmacist. Take with or without food. Drink lots of noncaffeine liquids unless told to drink less liquid by your doctor. Take the same day each week. Do not use if the solution is cloudy, leaking, or has particles. Do not use if solution changes color. Wash your hands before and after use. Move site where you give the shot each time. If you are also using insulin, you may inject this drug and the insulin in the same area of the body but not right next to each other. Do not mix this drug in the same syringe with insulin. Keep taking this drug as you have been told by your doctor or other health care provider, even if you feel well. Throw away needles in a needle/sharp disposal box. Do not reuse needles or other items. When the box is full, follow all local rules for getting rid of it. Talk with a doctor or pharmacist if you have any questions. What do I do if I miss a dose? Take a missed dose as soon as you think about it. If it is less than 3 days (72 hours) until your next dose, skip the missed dose. Take your next dose on your normal day. Do not take 2 doses at the same time or extra doses. How do I store and/or throw out this drug? Store in a refrigerator. Do not freeze. Do not use if it has been frozen. If needed, you may store at room temperature for up to 14 days. Write down the date you take this drug out of the refrigerator. If stored at room temperature and not used within 14 days, throw this drug away. Store in the original container to protect from light. Protect from heat. Keep all drugs in a safe place. Keep all drugs out of the reach of children and pets. Throw away unused or drugs. Do not flush down a toilet or pour down a drain unless you are told to do so. Check with your pharmacist if you have questions about the best way to throw out drugs. There may be drug take-back programs in your area. General drug facts If your symptoms or health problems do not get better or if they become worse, call your doctor. Do not share your drugs with others and do not take anyone else's drugs. Some drugs may have another patient information leaflet. If you have any questions about this drug, please talk with your doctor, nurse, pharmacist, or other health care provider. If you think there has been an overdose, call your poison control center or get medical care right away. Be ready to tell or show what was taken, how much, and when it happened. Last Reviewed [id number] Consumer Information Use and Disclaimer This generalized information is a limited summary of diagnosis, treatment, and/or medication information. It is not meant to be comprehensive and should be used as a tool to help the user understand and/or assess potential diagnostic and treatment options. It does NOT include all information about conditions, treatments, medications, side effects, or risks that may apply to a specific patient. It is not intended to be medical advice or a substitute for the medical advice, diagnosis, or treatment of a health care provider based on the health care provider's examination and assessment of a patient's specific and unique circumstances. Patients must speak with a health care provider for complete information about their health, medical questions, and treatment options, including any risks or benefits regarding use of medications. This information does not endorse any treatments or medications as safe, effective, or approved for treating a specific patient. [employer] and its affiliates disclaim any warranty or liability relating to this information or the use thereof. The use of this information is governed by the Terms of Use, available at https://www.Trunk Show.Enduring Hydro/en/solutions/[employer]/about/pito Prescriptions ordered this encounter Disp Refills Start End DULAGLUTIDE 0.75 MG/0.5 ML SUBCUTANE* 2 mL 0 04/26/2024 05/24/2024 Route: SUBCUTANEOUS Sig: Inject 0.75 mg subcutaneously one time a week for 28 days. Disposition: Return in about 4 weeks (around 05/24/2024) for wt mgt F/up. Follow-up and Disposition History for Encounter Date Provider Department Center 04/26/2024 [id number] RATLIFF Encounter Status:Closed by JENNIFER RATLIFF on 04/26/24 CNOV Observed: 04/18/2024 10:30 AM Status: COMPLETED Source: [facility] Office Visit (PULMWS) CINTHYA BONE ([id number]) 1970 F NFR Date Time Provider Department 04/18/24 10:30 AM LILLIE PERRY PULMWS During your visit today, we recorded the following information about you: Pulse Blood pressure Weight 78/minute 132/84 138.3 kg Lillie Perry PA-C 04/18/2024 10:57 AM Signed Patient: Cinthya Bone PCP: Shashi Jones MD CC: follow up HPI: Cinthya Bone 53 year old morbidly obese female, never smoker, with PMH significant for Asthma, GERD, Allergies and History of Covid September 2021. Last office visit 12/08/2022. Current maintenance therapy Dulera, Singulair and as needed Albuterol. Today, patient reports increased cough productive of green sputum following URI last week. No hemoptysis. Frequent wheezing. Exertional dyspnea with minimal effort. No fevers, chills, or night sweats. No unintended weight loss. No lower extremity edema. GERD/heartburn controlled as long as she takes PPI. PAST MEDICAL HISTORY Diagnosis Date Allergic rhinitis, cause unspecified 09/10/2008 Arthritis Arthritis of knee 10/30/2020 Asthma Benign neoplasm of left breast 2018 COVID-19 virus infection 10/14/2021 10/14/2021 Environmental allergies Never formally tested. Sneezes, itches around cats. Excessive or frequent menstruation Heavy periods Fatty liver 01/04/2022 Noted on US 12/2021 Gastroesophageal reflux disease without esophagitis 09/10/2008 Hemorrhage of gastrointestinal tract, unspecified 05/10/2014 Irregular menstrual cycle Irregular periods Liver cyst 01/08/2022 MRI: 12/2021 Mild persistent asthma without complication 12/11/2008 Obesity, Class III, BMI >= 40 (morbid obesity) E66.01 12/03/2016 Pneumonia 2008 Required intubation Restless leg syndrome 10/30/2020 Shortness of breath 2007 Was on a ventolator with pneumonia Situational depression 09/28/2022 Tonsil asymmetry 03/04/2018 Lt at 2+ Rt normal. chronic Well adult exam 09/01/2018 Done 10/30/2020 Allergies: Cats Swelling Comment:rash DULoxetine (CYMBALTA) 30 mg capsule Take 1 capsule by mouth once daily. rOPINIRole (REQUIP) 0.5 mg tablet Take 1 tablet by mouth daily at bedtime. Take with 1mg tab for total of 1.5mg. rOPINIRole (REQUIP) 1 mg tablet Take 1 tablet by mouth daily at bedtime. omeprazole (PRILOSEC) 20 mg capsule TAKE TWO CAPSULES BY MOUTH ONCE DAILY BEFORE BREAKFAST cyclobenzaprine (FLEXERIL) 10 mg tablet Take 1 tablet by mouth three times a day as needed for muscle spasm. buPROPion XL (WELLBUTRIN XL) 300 mg 24 hr tablet Take 1 tablet by mouth once daily. celecoxib (CELEBREX) 200 mg capsule Take 1 capsule by mouth once daily. montelukast (SINGULAIR) 10 mg tablet Take 1 tablet by mouth daily at bedtime. cyanocobalamin (VITAMIN B-12) 1,000 mcg tab Take 1,000 mcg by mouth once daily. cholecalciferol (VITAMIN D-3) 400 unit tab Take 400 Units by mouth once daily. metFORMIN ER (GLUCOPHAGE XR) 500 mg 24 hr tablet Take 2 tablets by mouth daily with dinner. mometasone-formoterol (DULERA) 200-5 mcg/actuation inhaler Inhale 2 Puffs as instructed two times a day. loratadine (CLARITIN) 10 mg tablet Take 1 tablet by mouth once daily as needed. FOR ALLERGY SYMPTOMS albuterol HFA (PROVENTIL HFA, VENTOLIN HFA) 90 mcg/actuation inhaler INHALE 2 PUFFS BY MOUTH EVERY 6 HOURS NEEDED FOR SHORTNESS OF BREATH AND WHEEZING Nebulizer Accessories kit Provide 1 kit. albuterol (PROVENTIL) 2.5 mg /3 mL (0.083 %) nebulizer solution Use 3 mL via nebulizer every 4 hours as needed for wheezing/shortness of breath. Use over 5-15minutes. fluticasone (FLONASE) 50 mcg/actuation nasal spray Use 1 [place] in each nostril once daily. promethazine (PHENERGAN) 25 mg tablet Take 1 tablet by mouth every 6 hours as needed. ProAir RespiClick 90 mcg/actuation breath activated (albuterol sulfate) Inhale 2 Puffs as instructed every 6 hours as needed. Social History Tobacco Use Smoking status: Never Smokeless tobacco: Never Tobacco comments: ETS exposure: Spouse and son smoke in home. Other family visitors smoke. Parents and Grandparents smoked in childhood home. Vaping Use Vaping status: Never Used Substance Use Topics Alcohol use: Not Currently Comment: social Drug use: Not Currently Family History Problem Relation Age of Onset Obesity Mother Cancer Father Stomach Heart Attack Brother 52 Obesity Brother Hypertension Brother Obesity Maternal Grandmother Obesity Maternal Grandfather Heart Paternal Grandmother COPD Paternal Grandmother Emphysema. Smoker. Obesity Paternal Grandmother Obesity Paternal Grandfather Asthma Son Breast Cancer Paternal Aunt Diabetes Paternal Aunt PAST SURGICAL HISTORY Procedure Laterality Date COLONOSCOPY FLX DX W/COLLJ SPEC WHEN PFRMD 05/10/2014 Colonoscopy EXC BREAST LES PREOP PLMT RAD MARKER OPEN 1 LES Left 01/05/2019 HYSTEROSCOPY, DIAGNOSTIC (SEPARATE 06/2010 Hysteroscopy AND curettage INCISE FINGER TENDON SHEATH Right 06/04/2020 Right ring trigger finger LIG/TRNSXJ FLP TUBE ABDL/VAG APPR UNI/BI Tubal ligation VAGINAL HYSTERECTOMY UTERUS 250 GM/< 12/08/2010 TVH I reviewed the past medical history, family history, social history and surgical history with changes noted above and updated in EMR. IMMUNIZATIONS Immunization History Administered Date(s) Administered COVID-19 original vaccine, full dose, monovalent (MODERNA) 10/28/2020 11/25/2020 hepatitis A-hepatitis B (HepA-HepB) vaccine (TWINRIX) 10/30/2021 11/30/2021 04/29/2022 influenza (IIV4) vaccine, age 6 mo - 64 yr, quadrivalent (AFLURIA, FLULAVAL, FLUZONE) 03/24/2017 12/19/2017 11/10/2018 12/12/2019 10/30/2020 11/30/2021 11/01/2022 influenza vaccine, unspecified formulation 12/11/2008 03/15/2013 pneumococcal conjugate (PCV20) vaccine, 20 valent (PREVNAR 20) 10/22/2021 pneumococcal polysaccharide (PPV23) vaccine, 23 valent (PNEUMOVAX 23) 09/10/2008 04/18/2020 tetanus diphtheria pertussis (Tdap) vaccine, age 7+ yr (ADACEL, BOOSTRIX) 09/10/2008 03/11/2013 ROS: All other systems reviewed as negative except for what is noted in HPI and review of systems. PHYSICAL EXAMINATION: BP 132/84 Pulse 78 Wt (!) 138.3 kg (305 lb) LMP 12/01/2010 (Exact Date) SpO2 98% BMI 52.91 kg/m? Gen: No acute distress. Cooperative with examination. Morbidly obese. HEENT: Normocephalic. Sclera, conjunctiva clear. Oral hygeine and dentition good. No thrush. Resp: No stridor, accessory respiratory muscle use, supra-sternal or intercostal retractions. No wheezes, crackles. CV: Regular rythm. Heart tones normal. Radial pulses normal. Ext: Warm and well perfused. No clubbing, cyanosis, edema. Skin: No rash, ecchymoses. Neuro: Mental status normal. Affect normal. No tremor. DATA: Laboratory and Imaging: Last Spirometry SPIROMETRY BASELINE ONLY Collected: 05/04/2022 11:20 AM (Final result) Narrative: [facility] [address] [place] [address] Test Date: 2022-05-04 Pat Name: CINTHYA BONE Department: Room: Gender: Female Securities Underwriter: : 1970 Requested By: Order Number: [id number] Reading MD: Emily Perez M.D. Interpretive Statements ATS/ERS acceptability and repeatability standards for spirometry met. IMPRESSION: Spirometry shows a reduced FEV1/FVC ratio; but individually normal FVC and FEV1 predicted values.This pattern indicates mild obstruction or a normal variant. Small airways obstruction. Electronically Signed On 05-04-2022 13:13:59 EDT by Emily Perez M.D. ID: [id number] Name: CINTHYA BONE Race: White Ht: 63.40 in Wt: 301.00 lbs Age: 51 Gender: Female : 1970 Dx: Smoking Hx: Non-smoker Doctor: LILLIE PERRY Test Date: 05/04/2022 Site: Tech: [facility] PRE-BRONCH POST-BRONCH Pre LLN Pred ULN %Pred Post %Pred %Chg SPIROMETRY FVC (L) 3.88 2.66 3.39 4.16 114 FEV1 (L) 2.63 2.13 2.72 3.30 96 FEV1/FVC 0.68 0.70 0.81 0.90 83 PEF L/s (L/sec) 6.96 4.98 6.66 8.34 104 FEF50 (L/sec) 1.90 1.94 3.54 5.15 53 FIF50 (L/sec) 4.99 FEF50/FIF50 0.38 90-100 FIVC (L) 3.62 DVO05-65 (L/sec) 1.26 1.54 2.72 4.22 46 Time (sec) 14.16 FET PEF (sec) 0.06 RINA (L) 0.10 Vol Extrap % (%) 2 Comments: ATS/ERS acceptability and repeatability standards for spirometry met. CT Chest other findings: Last CT Chest - Impression Only No resulted procedures found. Last XR Chest - Impression Only XR CHEST 2V FRONTAL/LAT Collected: 03/03/2017 9:27 AM (Final result) Impression: IMPRESSION: No acute speech language pathology assistant: CARMELLA Transcribe Date/Time: Mar 04 2017 12:29P Dictated by : CALLI GUZMAN DO... ASSESSMENT/PLAN: 1. Moderate persistent asthma with acute exacerbation - ICD9: 493.92, ICD10: J45.41 (primary diagnosis) Will treat acute exacerbation with Doxycycline and Prednisone burst. Patient to notify office if she does not improve with treatment. - DOXYCYCLINE HYCLATE 100 MG TABLET - PREDNISONE 20 MG TABLET 2. Moderate persistent asthma, unspecified whether complicated - ICD9: 493.90, ICD10: J45.40 Continue maintenance therapy with Dulera and as needed Albuterol. Continue Singulair. - SPIROMETRY WITH DILATOR IF OBSTRUCTED - NITRIC OXIDE, EXHALED 3. Allergic rhinitis, unspecified seasonality, unspecified trigger - ICD9: 477.9, ICD10: J30.9 See #2 Avoidance of triggers. 4. Morbid obesity (HCC) - ICD9: 278.01, ICD10: E66.01 BMI 52.91 Weight loss encouraged. Lillie Perry PA-C Referring Provider: SELF [200] Allergies As of Date: 04/18/2024 Noted Allergy Reaction CATS 2011 7 - Swelling Comments: rash Date Reviewed: 04/18/2024 Reviewed by: Lillie Perry PA-C - Fully Assessed Reason for Visit: Established Patient [175] Cmt: asthma Primary Visit Diagnosis:Moderate persistent asthma with acute exacerbation [J45.41] Other Visit Diagnoses:Moderate persistent asthma, unspecified whether complicated [J45.40] Allergic rhinitis, unspecified seasonality, unspecified trigger [J30.9] Morbid obesity (HCC) [E66.01] Order(s):doxycycline (VIBRA-TABS) 100 mg tabletTake 1 tablet by mouth two times a day for 7 days.Disp: 14 tabletRfl: 0 predniSONE (DELTASONE) 20 mg tabletTake 2 tablets by mouth once daily for 5 days.Disp: 10 tabletRfl: 0 SPIROMETRY WITH DILATOR IF OBSTRUCTED [[id number]] Order #: [id number]: 1 FUTURE NITRIC OXIDE, EXHALED [[id number]] Order #: [id number]: 1 FUTURE Prescriptions as of 04/18/2024 - doxycycline (VIBRA-TABS) 100 mg tablet Take 1 tablet by mouth two times a day for 7 days. - predniSONE (DELTASONE) 20 mg tablet Take 2 tablets by mouth once daily for 5 days. - DULoxetine (CYMBALTA) 30 mg capsule Take 1 capsule by mouth once daily. - rOPINIRole (REQUIP) 0.5 mg tablet Take 1 tablet by mouth daily at bedtime. Take with 1mg tab for total of 1.5mg. - rOPINIRole (REQUIP) 1 mg tablet Take 1 tablet by mouth daily at bedtime. - omeprazole (PRILOSEC) 20 mg capsule TAKE TWO CAPSULES BY MOUTH ONCE DAILY BEFORE BREAKFAST - cyclobenzaprine (FLEXERIL) 10 mg tablet Take 1 tablet by mouth three times a day as needed for muscle spasm. - buPROPion XL (WELLBUTRIN XL) 300 mg 24 hr tablet Take 1 tablet by mouth once daily. - celecoxib (CELEBREX) 200 mg capsule Take 1 capsule by mouth once daily. - montelukast (SINGULAIR) 10 mg tablet Take 1 tablet by mouth daily at bedtime. - cyanocobalamin (VITAMIN B-12) 1,000 mcg tab Take 1,000 mcg by mouth once daily. - cholecalciferol (VITAMIN D-3) 400 unit tab Take 400 Units by mouth once daily. - metFORMIN ER (GLUCOPHAGE XR) 500 mg 24 hr tablet Take 2 tablets by mouth daily with dinner. - mometasone-formoterol (DULERA) 200-5 mcg/actuation inhaler Inhale 2 Puffs as instructed two times a day. - loratadine (CLARITIN) 10 mg tablet Take 1 tablet by mouth once daily as needed. FOR ALLERGY SYMPTOMS - albuterol HFA (PROVENTIL HFA, VENTOLIN HFA) 90 mcg/actuation inhaler INHALE 2 PUFFS BY MOUTH EVERY 6 HOURS NEEDED FOR SHORTNESS OF BREATH AND WHEEZING - Nebulizer Accessories kit Provide 1 kit. - albuterol (PROVENTIL) 2.5 mg /3 mL (0.083 %) nebulizer solution Use 3 mL via nebulizer every 4 hours as needed for wheezing/shortness of breath. Use over 5-15minutes. - fluticasone (FLONASE) 50 mcg/actuation nasal spray Use 1 [place] in each nostril once daily. - promethazine (PHENERGAN) 25 mg tablet Take 1 tablet by mouth every 6 hours as needed. - ProAir RespiClick 90 mcg/actuation breath activated (albuterol sulfate) Inhale 2 Puffs as instructed every 6 hours as needed. Problem List As Of Date 04/18/2024 Noted Resolved Shortness of breath [R06.02] 01/13/2011 Pneumonia, organism unspecified [J18.9] 07/15/2006 01/13/2011 Acute respiratory failure [J96.00] 07/15/2006 01/13/2011 ACUTE URI NOS [J06.9] 08/07/2007 09/10/2008 Gastroesophageal reflux disease without esophag*09/10/2008 Allergic rhinitis [J30.9] 09/10/2008 Moderate persistent asthma without complication*12/11/2008 Environmental allergies [Z91.09] Obesity, Class III, BMI >= 40 (morbid obesity) *12/03/2016 Irritable mood [R45.4] 03/04/2018 Post menopausal syndrome [N95.1] 03/04/2018 Tonsil asymmetry [J35.8] 03/04/2018 Encounter for screening for diabetes mellitus [*03/04/2018 Well adult exam [Z00.00] 09/01/2018 Medication management [Z79.899] 09/01/2018 Arthritis of knee [M17.10] 10/30/2020 Restless leg syndrome [G25.81] 10/30/2020 COVID-19 virus infection [U07.1] 10/14/2021 Fatty liver [K76.0] 01/04/2022 Liver cyst [K76.89] 01/08/2022 Situational depression [F43.21] 09/28/2022 DRE (obstructive sleep apnea) [G47.33] 11/01/2023 Class 3 severe obesity with serious comorbidity*12/21/2023 Hyperinsulinemia [E16.1] 12/21/2023 Prescriptions ordered this encounter Disp Refills Start End DOXYCYCLINE HYCLATE 100 MG TABLET 14 t* 0 04/18/2024 04/25/2024 Route: ORAL Sig: Take 1 tablet by mouth two times a day for 7 days. PREDNISONE 20 MG TABLET 10 t* 0 04/18/2024 04/23/2024 Route: ORAL Sig: Take 2 tablets by mouth once daily for 5 days. Disposition: Return in about 3 months (around 07/16/2024). Follow-up and Disposition History for Encounter Date Provider Department Center 04/18/2024 [id number] PERRY MPULMWS [facility] Encounter Status:Closed by LILLIE PERRY on 04/18/24 PROGRESS Observed: 04/18/2024 10:06 AM Status: COMPLETED Source: [facility] ID: [id number] Author: LILLIE PERRY PA-C Service: ? Author Type: Physician Cyber Legal Advisor Type: Progress Notes Filed: 04/18/2024 10:57 Note Text: Patient: Cinthya Bone PCP: Shashi Jones MD CC: follow up HPI: Cinthya Bone 53 year old morbidly obese female, never smoker, with PMH significant for Asthma, GERD, Allergies and History of Covid September 2021. Last office visit 12/08/2022. Current maintenance therapy Dulera, Singulair and as needed Albuterol. Today, patient reports increased cough productive of green sputum following URI last week. No hemoptysis. Frequent wheezing. Exertional dyspnea with minimal effort. No fevers, chills, or night sweats. No unintended weight loss. No lower extremity edema. GERD/heartburn controlled as long as she takes PPI. PAST MEDICAL HISTORY Diagnosis Date Allergic rhinitis, cause unspecified 09/10/2008 Arthritis Arthritis of knee 10/30/2020 Asthma Benign neoplasm of left breast 2019 COVID-19 virus infection 10/14/2021 10/14/2021 Environmental allergies Never formally tested. Sneezes, itches around cats. Excessive or frequent menstruation Heavy periods Fatty liver 01/04/2022 Noted on US 12/2021 Gastroesophageal reflux disease without esophagitis 09/10/2008 Hemorrhage of gastrointestinal tract, unspecified 05/10/2014 Irregular menstrual cycle Irregular periods Liver cyst 01/08/2022 MRI: 12/2021 Mild persistent asthma without complication 12/11/2008 Obesity, Class III, BMI >= 40 (morbid obesity) E66.01 12/03/2016 Pneumonia 2008 Required intubation Restless leg syndrome 10/30/2020 Shortness of breath 2006 Was on a ventolator with pneumonia Situational depression 09/28/2022 Tonsil asymmetry 03/04/2018 Lt at 2+ Rt normal. chronic Well adult exam 09/01/2018 Done 10/30/2020 Allergies: Cats Swelling Comment:rash DULoxetine (CYMBALTA) 30 mg capsule Take 1 capsule by mouth once daily. rOPINIRole (REQUIP) 0.5 mg tablet Take 1 tablet by mouth daily at bedtime. Take with 1mg tab for total of 1.5mg. rOPINIRole (REQUIP) 1 mg tablet Take 1 tablet by mouth daily at bedtime. omeprazole (PRILOSEC) 20 mg capsule TAKE TWO CAPSULES BY MOUTH ONCE DAILY BEFORE BREAKFAST cyclobenzaprine (FLEXERIL) 10 mg tablet Take 1 tablet by mouth three times a day as needed for muscle spasm. buPROPion XL (WELLBUTRIN XL) 300 mg 24 hr tablet Take 1 tablet by mouth once daily. celecoxib (CELEBREX) 200 mg capsule Take 1 capsule by mouth once daily. montelukast (SINGULAIR) 10 mg tablet Take 1 tablet by mouth daily at bedtime. cyanocobalamin (VITAMIN B-12) 1,000 mcg tab Take 1,000 mcg by mouth once daily. cholecalciferol (VITAMIN D-3) 400 unit tab Take 400 Units by mouth once daily. metFORMIN ER (GLUCOPHAGE XR) 500 mg 24 hr tablet Take 2 tablets by mouth daily with dinner. mometasone-formoterol (DULERA) 200-5 mcg/actuation inhaler Inhale 2 Puffs as instructed two times a day. loratadine (CLARITIN) 10 mg tablet Take 1 tablet by mouth once daily as needed. FOR ALLERGY SYMPTOMS albuterol HFA (PROVENTIL HFA, VENTOLIN HFA) 90 mcg/actuation inhaler INHALE 2 PUFFS BY MOUTH EVERY 6 HOURS NEEDED FOR SHORTNESS OF BREATH AND WHEEZING Nebulizer Accessories kit Provide 1 kit. albuterol (PROVENTIL) 2.5 mg /3 mL (0.083 %) nebulizer solution Use 3 mL via nebulizer every 4 hours as needed for wheezing/shortness of breath. Use over 5-15minutes. fluticasone (FLONASE) 50 mcg/actuation nasal spray Use 1 [place] in each nostril once daily. promethazine (PHENERGAN) 25 mg tablet Take 1 tablet by mouth every 6 hours as needed. ProAir RespiClick 90 mcg/actuation breath activated (albuterol sulfate) Inhale 2 Puffs as instructed every 6 hours as needed. Social History Tobacco Use Smoking status: Never Smokeless tobacco: Never Tobacco comments: ETS exposure: Spouse and son smoke in home. Other family visitors smoke. Parents and Grandparents smoked in childhood home. Vaping Use Vaping status: Never Used Substance Use Topics Alcohol use: Not Currently Comment: social Drug use: Not Currently Family History Problem Relation Age of Onset Obesity Mother Cancer Father Stomach Heart Attack Brother 52 Obesity Brother Hypertension Brother Obesity Maternal Grandmother Obesity Maternal Grandfather Heart Paternal Grandmother COPD Paternal Grandmother Emphysema. Smoker. Obesity Paternal Grandmother Obesity Paternal Grandfather Asthma Son Breast Cancer Paternal Aunt Diabetes Paternal Aunt PAST SURGICAL HISTORY Procedure Laterality Date COLONOSCOPY FLX DX W/COLLJ SPEC WHEN PFRMD 05/10/2014 Colonoscopy EXC BREAST LES PREOP PLMT RAD MARKER OPEN 1 LES Left 01/05/2019 HYSTEROSCOPY, DIAGNOSTIC (SEPARATE 06/2010 Hysteroscopy AND curettage INCISE FINGER TENDON SHEATH Right 06/04/2020 Right ring trigger finger LIG/TRNSXJ FLP TUBE ABDL/VAG APPR UNI/BI Tubal ligation VAGINAL HYSTERECTOMY UTERUS 250 GM/< 12/08/2010 TV I reviewed the past medical history, family history, social history and surgical history with changes noted above and updated in EMR. IMMUNIZATIONS Immunization History Administered Date(s) Administered COVID-19 original vaccine, full dose, monovalent (MODERNA) 10/28/2020 11/25/2020 hepatitis A-hepatitis B (HepA-HepB) vaccine (TWINRIX) 10/30/2021 11/30/2021 04/29/2022 influenza (IIV4) vaccine, age 6 mo - 64 yr, quadrivalent (AFLURIA, FLULAVAL, FLUZONE) 03/24/2017 12/19/2017 11/10/2018 12/12/2019 10/30/2020 11/30/2021 11/01/2022 influenza vaccine, unspecified formulation 12/11/2008 03/15/2013 pneumococcal conjugate (PCV20) vaccine, 20 valent (PREVNAR 20) 10/22/2021 pneumococcal polysaccharide (PPV23) vaccine, 23 valent (PNEUMOVAX 23) 09/10/2008 04/18/2020 tetanus diphtheria pertussis (Tdap) vaccine, age 7+ yr (ADACEL, BOOSTRIX) 09/10/2008 03/11/2013 ROS: All other systems reviewed as negative except for what is noted in HPI and review of systems. PHYSICAL EXAMINATION: BP 132/84 Pulse 78 Wt (!) 138.3 kg (305 lb) LMP 12/01/2010 (Exact Date) SpO2 98% BMI 52.91 kg/m? Gen: No acute distress. Cooperative with examination. Morbidly obese. HEENT: Normocephalic. Sclera, conjunctiva clear. Oral hygeine and dentition good. No thrush. Resp: No stridor, accessory respiratory muscle use, supra-sternal or intercostal retractions. No wheezes, crackles. CV: Regular rythm. Heart tones normal. Radial pulses normal. Ext: Warm and well perfused. No clubbing, cyanosis, edema. Skin: No rash, ecchymoses. Neuro: Mental status normal. Affect normal. No tremor. DATA: Laboratory and Imaging: Last Spirometry SPIROMETRY BASELINE ONLY Collected: 05/04/2022 11:20 AM (Final result) Narrative: [facility] [address] [place] [address] Test Date: 2022-05-04 Pat Name: CINTHYA BONE Department: Room: Gender: Female Securities Underwriter: : 1970 Requested By: Order Number: [id number] Reading MD: Emily Perez M.D. Interpretive Statements ATS/ERS acceptability and repeatability standards for spirometry met. IMPRESSION: Spirometry shows a reduced FEV1/FVC ratio; but individually normal FVC and FEV1 predicted values.This pattern indicates mild obstruction or a normal variant. Small airways obstruction. Electronically Signed On 05-04-2022 13:13:59 EDT by Emily Perez M.D. ID: [id number] Name: CINTHYA BONE Race: White Ht: 63.40 in Wt: 301.00 lbs Age: 51 Gender: Female : 1970 Dx: Smoking Hx: Non-smoker Doctor: LILLIE PERRY Test Date: 05/04/2022 Site: Tech: [facility] PRE-BRONCH POST-BRONCH Pre LLN Pred ULN %Pred Post %Pred %Chg SPIROMETRY FVC (L) 3.88 2.66 3.39 4.16 114 FEV1 (L) 2.63 2.13 2.72 3.30 96 FEV1/FVC 0.68 0.70 0.81 0.90 83 PEF L/s (L/sec) 6.96 4.98 6.66 8.34 104 FEF50 (L/sec) 1.90 1.94 3.54 5.15 53 FIF50 (L/sec) 4.99 FEF50/FIF50 0.38 90-100 FIVC (L) 3.62 LRF74-61 (L/sec) 1.26 1.54 2.72 4.22 46 Time (sec) 14.16 FET PEF (sec) 0.06 RINA (L) 0.10 Vol Extrap % (%) 2 Comments: ATS/ERS acceptability and repeatability standards for spirometry met. CT Chest other findings: Last CT Chest - Impression Only No resulted procedures found. Last XR Chest - Impression Only XR CHEST 2V FRONTAL/LAT Collected: 03/03/2017 9:27 AM (Final result) Impression: IMPRESSION: No acute speech language pathology assistant: CARMELLA Transcribe Date/Time: Mar 04 2017 12:29P Dictated by : CALLI GUZMAN DO... ASSESSMENT/PLAN: 1. Moderate persistent asthma with acute exacerbation - ICD9: 493.92, ICD10: J45.41 (primary diagnosis) Will treat acute exacerbation with Doxycycline and Prednisone burst. Patient to notify office if she does not improve with treatment. - DOXYCYCLINE HYCLATE 100 MG TABLET - PREDNISONE 20 MG TABLET 2. Moderate persistent asthma, unspecified whether complicated - ICD9: 493.90, ICD10: J45.40 Continue maintenance therapy with Dulera and as needed Albuterol. Continue Singulair. - SPIROMETRY WITH DILATOR IF OBSTRUCTED - NITRIC OXIDE, EXHALED 3. Allergic rhinitis, unspecified seasonality, unspecified trigger - ICD9: 477.9, ICD10: J30.9 See #2 Avoidance of triggers. 4. Morbid obesity (HCC) - ICD9: 278.01, ICD10: E66.01 BMI 52.91 Weight loss encouraged. Lillie Perry PA-C PROGRESS Observed: 04/03/2024 9:05 AM Status: COMPLETED Source: [facility] ID: [id number] Author: MAGGY MALIK, MONE Service: ? Author Type: Registered Nurse Type: Progress Notes Filed: 04/03/2024 09:05 Note Text: Per Dr. Gilbert, Cinthya was provided with Powerstep Original, size 9-9.5 Womens, and instructed/educated in its application, wear, and care. All questions were answered, and patient was able to demonstrate competence with the necessary skills to utilize the above equipment. Maggy Malik RN PROGRESS Observed: 04/03/2024 8:39 AM Status: COMPLETED Source: [facility] ID: [id number] Author: NICOLE GILBERT, ? Service: ? Author Type: Physician Type: Progress Notes Filed: 04/03/2024 08:47 Note Text: Chief Complaint: This 53 year old female who presents with chief complaint:right heel pain HPI Patient presents to clinic for evaluation of right foot Complains of pain to the right posterior heel that has been present for over one year. Patient states the pain comes and goes, worse the longer she is on her foot Has tried ice and heat and tylenol. Nothing really helps. PAIN EVALUATION 03/27/20241955 Pain Level: 4 Pain Location: Foot-Right Description: Aching;Dull Duration Units: Minutes Frequency: Intermittent Intervention/Comfort measure: Heat Hemoglobin A1C (%) Date Value 11/07/2023 5.3 11/01/2022 5.0 09/30/2021 5.0 10/30/2020 5.0 03/04/2018 4.7 PCP: Shashi Jones MD PAST MEDICAL HISTORY Diagnosis Date Allergic rhinitis, cause unspecified 09/10/2008 Arthritis Arthritis of knee 10/30/2020 Asthma Benign neoplasm of left breast 2018 COVID-19 virus infection 10/14/2021 10/14/2021 Environmental allergies Never formally tested. Sneezes, itches around cats. Excessive or frequent menstruation Heavy periods Fatty liver 01/04/2022 Noted on US 12/2021 Gastroesophageal reflux disease without esophagitis 09/10/2008 Hemorrhage of gastrointestinal tract, unspecified 05/10/2014 Irregular menstrual cycle Irregular periods Liver cyst 01/08/2022 MRI: 12/2021 Mild persistent asthma without complication 12/11/2008 Obesity, Class III, BMI >= 40 (morbid obesity) E66.01 12/03/2016 Pneumonia 2008 Required intubation Restless leg syndrome 10/30/2020 Shortness of breath 2006 Was on a ventolator with pneumonia Situational depression 09/28/2022 Tonsil asymmetry 03/04/2018 Lt at 2+ Rt normal. chronic Well adult exam 09/01/2018 Done 10/30/2020 Current Outpatient Medications Medication Sig DULoxetine (CYMBALTA) 30 mg capsule Take 1 capsule by mouth once daily. rOPINIRole (REQUIP) 0.5 mg tablet Take 1 tablet by mouth daily at bedtime. Take with 1mg tab for total of 1.5mg. rOPINIRole (REQUIP) 1 mg tablet Take 1 tablet by mouth daily at bedtime. omeprazole (PRILOSEC) 20 mg capsule TAKE TWO CAPSULES BY MOUTH ONCE DAILY BEFORE BREAKFAST cyclobenzaprine (FLEXERIL) 10 mg tablet Take 1 tablet by mouth three times a day as needed for muscle spasm. buPROPion XL (WELLBUTRIN XL) 300 mg 24 hr tablet Take 1 tablet by mouth once daily. celecoxib (CELEBREX) 200 mg capsule Take 1 capsule by mouth once daily. montelukast (SINGULAIR) 10 mg tablet Take 1 tablet by mouth daily at bedtime. cyanocobalamin (VITAMIN B-12) 1,000 mcg tab Take 1,000 mcg by mouth once daily. cholecalciferol (VITAMIN D-3) 400 unit tab Take 400 Units by mouth once daily. metFORMIN ER (GLUCOPHAGE XR) 500 mg 24 hr tablet Take 2 tablets by mouth daily with dinner. mometasone-formoterol (DULERA) 200-5 mcg/actuation inhaler Inhale 2 Puffs as instructed two times a day. loratadine (CLARITIN) 10 mg tablet Take 1 tablet by mouth once daily as needed. FOR ALLERGY SYMPTOMS albuterol HFA (PROVENTIL HFA, VENTOLIN HFA) 90 mcg/actuation inhaler INHALE 2 PUFFS BY MOUTH EVERY 6 HOURS NEEDED FOR SHORTNESS OF BREATH AND WHEEZING Nebulizer Accessories kit Provide 1 kit. fluticasone (FLONASE) 50 mcg/actuation nasal spray Use 1 [place] in each nostril once daily. promethazine (PHENERGAN) 25 mg tablet Take 1 tablet by mouth every 6 hours as needed. ProAir RespiClick 90 mcg/actuation breath activated (albuterol sulfate) Inhale 2 Puffs as instructed every 6 hours as needed. albuterol (PROVENTIL) 2.5 mg /3 mL (0.083 %) nebulizer solution Use 3 mL via nebulizer every 4 hours as needed for wheezing/shortness of breath. Use over 5-15minutes. No current facility-administered medications for this visit. ALLERGIES Allergen Reactions Cats Swelling rash PAST SURGICAL HISTORY Procedure Laterality Date COLONOSCOPY FLX DX W/COLLJ SPEC WHEN PFRMD 05/10/2014 Colonoscopy EXC BREAST LES PREOP PLMT RAD MARKER OPEN 1 LES Left 01/05/2019 HYSTEROSCOPY, DIAGNOSTIC (SEPARATE 06/2010 Hysteroscopy AND curettage INCISE FINGER TENDON SHEATH Right 06/04/2020 Right ring trigger finger LIG/TRNSXJ FLP TUBE ABDL/VAG APPR UNI/BI Tubal ligation VAGINAL HYSTERECTOMY UTERUS 250 GM/< 12/08/2010 TVH FAMILY HISTORY Problem Relation Age of Onset Obesity Mother Cancer Father Stomach Heart Attack Brother 52 Obesity Brother Hypertension Brother Obesity Maternal Grandmother Obesity Maternal Grandfather Heart Paternal Grandmother COPD Paternal Grandmother Emphysema. Smoker. Obesity Paternal Grandmother Obesity Paternal Grandfather Asthma Son Breast Cancer Paternal Aunt Diabetes Paternal Aunt Social History Tobacco Use Smoking status: Never Smokeless tobacco: Never Tobacco comments: ETS exposure: Spouse and son smoke in home. Other family visitors smoke. Parents and Grandparents smoked in childhood home. Vaping Use Vaping status: Never Used Substance Use Topics Alcohol use: Not Currently Comment: social Drug use: Not Currently REVIEW OF SYSTEMS GENERAL: Negative for Malaise, significant weight loss, fever RESPIRATORY: Negative for cough, wheezing and shortness of breath CARDIOVASCULAR: Negative for chest pain, leg swelling and palpitations GI: Negative for abdominal discomfort, blood in stools or black stools and change in bowel habits : Negative for dysuria, frequency and incontinence MUSCULOSKELETAL: Negative for joint pain or swelling, back pain, and muscle pain. SKIN: Negative for lesions, rash, and itching. HEMATOLOGY/LYMPHOLOGY Negative for prolonged bleeding, bruising easily, and swollen nodes. ENDOCRINE: Negative for cold or heat intolerance, polyuria, polydipsia and goiter. NEURO: negative Physical Exam: Constitutional: Pt is a well developed 53 year old female who is alert, oriented and cooperative Eyes: Following during examination. No redness or drainage. Respiratory: RR normal and nonlabored. Even breathing. No evidence of distress or shortness of breath. Psychology: Patient is engaged during conversation. Normal affect and mood. Does not appear depressed or anxious during encounter. Vascular: Dorsalis pedis and posterior tibial pulses palpable as b/l Capillary Fill time < 5 seconds to digits 1-5 b/l Skin temperature warm to warm proximal to distal b/l Hair growth present to digits Neurological: intact light touch/epicritic sensation - tinel b/l intact protective sensation no significant neurological deficits Dermatological: Nails 1-5 b/l appear normal. Webspaces clean and dry 1-4 b/l. Skin appears well hydrated and supple. good color, texture, turgor. No open lesions present. No callosities present. Musculoskeletal/Orthopaedic: Patient has pain to palpation of right posterior heel Large heel spur is noted to right posterior heel Foot type is neutral structurally AJ ROM is full with knee extended and flexed 1st MPJ is full when loaded and no pain or crepitus are noted with ROM. MTJ, STJ are full and free of pain and crepitus. +5/5 muscle strength dorsiflexion, plantarflexion, inversion, eversion b/l Radiographs: 3 views right foot ordered April 03, 2024: I have personally reviewed and interpreted these XR myself: posterior heel spur. Plantar heel spur ASSESSMENT: (M77.31) Calcaneal spur of right foot (primary encounter diagnosis) (M76.61) Achilles tendinitis of right lower extremity PLAN: Reviewed xrays of right foot. Posterior and plantar heel spur present Recommend stretching, inserts, good supportive shoes Oral steroid prescribed Discussed possible therapy. Patient will try these other options first If pain fails to improve, could consider surgical resection of spur Nicole Gilbert DPM Podiatry [address] [facility] [address] Dept: [phone] Dept DERRICK Observed: 04/03/2024 8:30 AM Status: COMPLETED Source: [facility] Office Visit (PODIWS) CINTHYA BONE ([id number]) 1970 F NFR Date Time Provider Department 04/03/24 8:30 AM NICOLE GILBERT PODIWS During your visit today, we recorded the following information about you: Maggy Malik RN 04/03/2024 8:47 AM Signed AMB ROOMING INTAKE FLOWSHEET DATA Pain Pain Level: 4 Pain Location: Foot-Right Description: Aching, Dull Duration Units: Minutes Frequency: Intermittent Intervention/Comfort measure: Heat Patient presents with: Right Foot - Established Patient, Pain Patient presents for right heel pain. Hx of heel spur. States that a few months ago the pain started to get worse and it seems to be rubbing in her shoes. XRay prior to appointment. SUSSY 04/13/22 Nicole Gilbert 04/03/2024 8:47 AM Signed Chief Complaint: This 53 year old female who presents with chief complaint:right heel pain HPI Patient presents to clinic for evaluation of right foot Complains of pain to the right posterior heel that has been present for over one year. Patient states the pain comes and goes, worse the longer she is on her foot Has tried ice and heat and tylenol. Nothing really helps. PAIN EVALUATION 03/27/20241955 Pain Level: 4 Pain Location: Foot-Right Description: Aching;Dull Duration Units: Minutes Frequency: Intermittent Intervention/Comfort measure: Heat Hemoglobin A1C (%) Date Value 11/07/2023 5.3 11/01/2022 5.0 09/30/2021 5.0 10/30/2020 5.0 03/04/2018 4.7 PCP: Shashi Jones MD PAST MEDICAL HISTORY Diagnosis Date Allergic rhinitis, cause unspecified 09/10/2008 Arthritis Arthritis of knee 10/30/2020 Asthma Benign neoplasm of left breast 2018 COVID-19 virus infection 10/14/2021 10/14/2021 Environmental allergies Never formally tested. Sneezes, itches around cats. Excessive or frequent menstruation Heavy periods Fatty liver 01/04/2022 Noted on US 12/2021 Gastroesophageal reflux disease without esophagitis 09/10/2008 Hemorrhage of gastrointestinal tract, unspecified 05/10/2014 Irregular menstrual cycle Irregular periods Liver cyst 01/08/2022 MRI: 12/2021 Mild persistent asthma without complication 12/11/2008 Obesity, Class III, BMI >= 40 (morbid obesity) E66.01 12/03/2016 Pneumonia 2008 Required intubation Restless leg syndrome 10/30/2020 Shortness of breath 2007 Was on a ventolator with pneumonia Situational depression 09/28/2022 Tonsil asymmetry 03/04/2018 Lt at 2+ Rt normal. chronic Well adult exam 09/01/2018 Done 10/30/2020 Current Outpatient Medications Medication Sig DULoxetine (CYMBALTA) 30 mg capsule Take 1 capsule by mouth once daily. rOPINIRole (REQUIP) 0.5 mg tablet Take 1 tablet by mouth daily at bedtime. Take with 1mg tab for total of 1.5mg. rOPINIRole (REQUIP) 1 mg tablet Take 1 tablet by mouth daily at bedtime. omeprazole (PRILOSEC) 20 mg capsule TAKE TWO CAPSULES BY MOUTH ONCE DAILY BEFORE BREAKFAST cyclobenzaprine (FLEXERIL) 10 mg tablet Take 1 tablet by mouth three times a day as needed for muscle spasm. buPROPion XL (WELLBUTRIN XL) 300 mg 24 hr tablet Take 1 tablet by mouth once daily. celecoxib (CELEBREX) 200 mg capsule Take 1 capsule by mouth once daily. montelukast (SINGULAIR) 10 mg tablet Take 1 tablet by mouth daily at bedtime. cyanocobalamin (VITAMIN B-12) 1,000 mcg tab Take 1,000 mcg by mouth once daily. cholecalciferol (VITAMIN D-3) 400 unit tab Take 400 Units by mouth once daily. metFORMIN ER (GLUCOPHAGE XR) 500 mg 24 hr tablet Take 2 tablets by mouth daily with dinner. mometasone-formoterol (DULERA) 200-5 mcg/actuation inhaler Inhale 2 Puffs as instructed two times a day. loratadine (CLARITIN) 10 mg tablet Take 1 tablet by mouth once daily as needed. FOR ALLERGY SYMPTOMS albuterol HFA (PROVENTIL HFA, VENTOLIN HFA) 90 mcg/actuation inhaler INHALE 2 PUFFS BY MOUTH EVERY 6 HOURS NEEDED FOR SHORTNESS OF BREATH AND WHEEZING Nebulizer Accessories kit Provide 1 kit. fluticasone (FLONASE) 50 mcg/actuation nasal spray Use 1 [place] in each nostril once daily. promethazine (PHENERGAN) 25 mg tablet Take 1 tablet by mouth every 6 hours as needed. ProAir RespiClick 90 mcg/actuation breath activated (albuterol sulfate) Inhale 2 Puffs as instructed every 6 hours as needed. albuterol (PROVENTIL) 2.5 mg /3 mL (0.083 %) nebulizer solution Use 3 mL via nebulizer every 4 hours as needed for wheezing/shortness of breath. Use over 5-15minutes. No current facility-administered medications for this visit. ALLERGIES Allergen Reactions Cats Swelling rash PAST SURGICAL HISTORY Procedure Laterality Date COLONOSCOPY FLX DX W/COLLJ SPEC WHEN PFRMD 05/10/2014 Colonoscopy EXC BREAST LES PREOP PLMT RAD MARKER OPEN 1 LES Left 01/05/2019 HYSTEROSCOPY, DIAGNOSTIC (SEPARATE 06/2010 Hysteroscopy AND curettage INCISE FINGER TENDON SHEATH Right 06/04/2020 Right ring trigger finger LIG/TRNSXJ FLP TUBE ABDL/VAG APPR UNI/BI Tubal ligation VAGINAL HYSTERECTOMY UTERUS 250 GM/< 12/08/2010 TVH FAMILY HISTORY Problem Relation Age of Onset Obesity Mother Cancer Father Stomach Heart Attack Brother 52 Obesity Brother Hypertension Brother Obesity Maternal Grandmother Obesity Maternal Grandfather Heart Paternal Grandmother COPD Paternal Grandmother Emphysema. Smoker. Obesity Paternal Grandmother Obesity Paternal Grandfather Asthma Son Breast Cancer Paternal Aunt Diabetes Paternal Aunt Social History Tobacco Use Smoking status: Never Smokeless tobacco: Never Tobacco comments: ETS exposure: Spouse and son smoke in home. Other family visitors smoke. Parents and Grandparents smoked in childhood home. Vaping Use Vaping status: Never Used Substance Use Topics Alcohol use: Not Currently Comment: social Drug use: Not Currently REVIEW OF SYSTEMS GENERAL: Negative for Malaise, significant weight loss, fever RESPIRATORY: Negative for cough, wheezing and shortness of breath CARDIOVASCULAR: Negative for chest pain, leg swelling and palpitations GI: Negative for abdominal discomfort, blood in stools or black stools and change in bowel habits : Negative for dysuria, frequency and incontinence MUSCULOSKELETAL: Negative for joint pain or swelling, back pain, and muscle pain. SKIN: Negative for lesions, rash, and itching. HEMATOLOGY/LYMPHOLOGY Negative for prolonged bleeding, bruising easily, and swollen nodes. ENDOCRINE: Negative for cold or heat intolerance, polyuria, polydipsia and goiter. NEURO: negative Physical Exam: Constitutional: Pt is a well developed 53 year old female who is alert, oriented and cooperative Eyes: Following during examination. No redness or drainage. Respiratory: RR normal and nonlabored. Even breathing. No evidence of distress or shortness of breath. Psychology: Patient is engaged during conversation. Normal affect and mood. Does not appear depressed or anxious during encounter. Vascular: Dorsalis pedis and posterior tibial pulses palpable as b/l Capillary Fill time < 5 seconds to digits 1-5 b/l Skin temperature warm to warm proximal to distal b/l Hair growth present to digits Neurological: intact light touch/epicritic sensation - tinel b/l intact protective sensation no significant neurological deficits Dermatological: Nails 1-5 b/l appear normal. Webspaces clean and dry 1-4 b/l. Skin appears well hydrated and supple. good color, texture, turgor. No open lesions present. No callosities present. Musculoskeletal/Orthopaedic: Patient has pain to palpation of right posterior heel Large heel spur is noted to right posterior heel Foot type is neutral structurally AJ ROM is full with knee extended and flexed 1st MPJ is full when loaded and no pain or crepitus are noted with ROM. MTJ, STJ are full and free of pain and crepitus. +5/5 muscle strength dorsiflexion, plantarflexion, inversion, eversion b/l Radiographs: 3 views right foot ordered April 03, 2024: I have personally reviewed and interpreted these XR myself: posterior heel spur. Plantar heel spur ASSESSMENT: (M77.31) Calcaneal spur of right foot (primary encounter diagnosis) (M76.61) Achilles tendinitis of right lower extremity PLAN: Reviewed xrays of right foot. Posterior and plantar heel spur present Recommend stretching, inserts, good supportive shoes Oral steroid prescribed Discussed possible therapy. Patient will try these other options first If pain fails to improve, could consider surgical resection of spur Nicole Gilbert DPM Podiatry [address] [facility] [address] Dept: [phone] Dept Nicole Gilbert 04/03/2024 8:44 AM Signed Powerstep Original Full length. Can purchase at [employer] and boots,shoes and more here in [place], [employer] in [place] or [place]. Also can find in [place] in [facility]. Powersteps can also be purchased online, starting around $45.00 If you have a metatarsal or dancer pad for your feet apply the pad directly to the insole so you can interchange between your shoes. Find a shoe with a removable insole and take this out and replace with your powerstep insole. Always bring powersteps with you when shopping for shoes so that you can make sure that everything fits well together Maggy Malik RN 04/03/2024 9:[address] Gilbert, Cinthya was provided with Powerstep Original, size 9-9.5 Womens, and instructed/educated in its application, wear, and care. All questions were answered, and patient was able to demonstrate competence with the necessary skills to utilize the above equipment. Maggy Malik RN Allergies As of Date: 04/03/2024 Noted Allergy Reaction CATS 2011 7 - Swelling Comments: rash Date Reviewed: 04/03/2024 Reviewed by: Maggy Malik RN - Fully Assessed Reason for Visit: Established Patient [175] Pain [78] Primary Visit Diagnosis:Calcaneal spur of right foot [M77.31] Other Visit Diagnosis:Achilles tendinitis of right lower extremity [M76.61] Order(s):methylPREDNISolone (MEDROL, PRATEEK,) 4 mg Dose-PackTake as directedDisp: 21 tabletRfl: 0 Prescriptions as of 04/03/2024 - methylPREDNISolone (MEDROL, PRATEEK,) 4 mg Dose-Pack Take as directed - DULoxetine (CYMBALTA) 30 mg capsule Take 1 capsule by mouth once daily. - rOPINIRole (REQUIP) 0.5 mg tablet Take 1 tablet by mouth daily at bedtime. Take with 1mg tab for total of 1.5mg. - rOPINIRole (REQUIP) 1 mg tablet Take 1 tablet by mouth daily at bedtime. - omeprazole (PRILOSEC) 20 mg capsule TAKE TWO CAPSULES BY MOUTH ONCE DAILY BEFORE BREAKFAST - cyclobenzaprine (FLEXERIL) 10 mg tablet Take 1 tablet by mouth three times a day as needed for muscle spasm. - buPROPion XL (WELLBUTRIN XL) 300 mg 24 hr tablet Take 1 tablet by mouth once daily. - celecoxib (CELEBREX) 200 mg capsule Take 1 capsule by mouth once daily. - montelukast (SINGULAIR) 10 mg tablet Take 1 tablet by mouth daily at bedtime. - cyanocobalamin (VITAMIN B-12) 1,000 mcg tab Take 1,000 mcg by mouth once daily. - cholecalciferol (VITAMIN D-3) 400 unit tab Take 400 Units by mouth once daily. - metFORMIN ER (GLUCOPHAGE XR) 500 mg 24 hr tablet Take 2 tablets by mouth daily with dinner. - mometasone-formoterol (DULERA) 200-5 mcg/actuation inhaler Inhale 2 Puffs as instructed two times a day. - loratadine (CLARITIN) 10 mg tablet Take 1 tablet by mouth once daily as needed. FOR ALLERGY SYMPTOMS - albuterol HFA (PROVENTIL HFA, VENTOLIN HFA) 90 mcg/actuation inhaler INHALE 2 PUFFS BY MOUTH EVERY 6 HOURS NEEDED FOR SHORTNESS OF BREATH AND WHEEZING - Nebulizer Accessories kit Provide 1 kit. - albuterol (PROVENTIL) 2.5 mg /3 mL (0.083 %) nebulizer solution Use 3 mL via nebulizer every 4 hours as needed for wheezing/shortness of breath. Use over 5-15minutes. - fluticasone (FLONASE) 50 mcg/actuation nasal spray Use 1 [place] in each nostril once daily. - promethazine (PHENERGAN) 25 mg tablet Take 1 tablet by mouth every 6 hours as needed. - ProAir RespiClick 90 mcg/actuation breath activated (albuterol sulfate) Inhale 2 Puffs as instructed every 6 hours as needed. Problem List As Of Date 04/03/2024 Noted Resolved Shortness of breath [R06.02] 01/13/2011 Pneumonia, organism unspecified [J18.9] 07/15/2006 01/13/2011 Acute respiratory failure [J96.00] 07/15/2006 01/13/2011 ACUTE URI NOS [J06.9] 08/07/2007 09/10/2008 Gastroesophageal reflux disease without esophag*09/10/2008 Allergic rhinitis [J30.9] 09/10/2008 Moderate persistent asthma without complication*12/11/2008 Environmental allergies [Z91.09] Obesity, Class III, BMI >= 40 (morbid obesity) *12/03/2016 Irritable mood [R45.4] 03/04/2018 Post menopausal syndrome [N95.1] 03/04/2018 Tonsil asymmetry [J35.8] 03/04/2018 Encounter for screening for diabetes mellitus [*03/04/2018 Well adult exam [Z00.00] 09/01/2018 Medication management [Z79.899] 09/01/2018 Arthritis of knee [M17.10] 10/30/2020 Restless leg syndrome [G25.81] 10/30/2020 COVID-19 virus infection [U07.1] 10/14/2021 Fatty liver [K76.0] 01/04/2022 Liver cyst [K76.89] 01/08/2022 Situational depression [F43.21] 09/28/2022 DRE (obstructive sleep apnea) [G47.33] 11/01/2023 Class 3 severe obesity with serious comorbidity*12/21/2023 Hyperinsulinemia [E16.1] 12/21/2023 Other instructions from your clinician: Powerstep Original Full length. Can purchase at [employer] and boots,shoes and more here in [place], [employer] in [place] or [place]. Also can find in [employer] in [facility]. Powersteps can also be purchased online, starting around $45.00 If you have a metatarsal or dancer pad for your feet apply the pad directly to the insole so you can interchange between your shoes. Find a shoe with a removable insole and take this out and replace with your powerstep insole. Always bring powersteps with you when shopping for shoes so that you can make sure that everything fits well together Prescriptions ordered this encounter Disp Refills Start End METHYLPREDNISOLONE 4 MG TABLETS IN A* 21 t* 0 04/03/2024 04/09/2024 Sig: Take as directed Encounter Status:Closed by NICOLE GILBERT DPM on 04/03/24 PROGRESS Observed: 04/03/2024 8:13 AM Status: COMPLETED Source: [facility] HNO ID: [id number] Author: MAGGY MALIK RN Service: ? Author Type: Registered Nurse Type: Progress Notes Filed: 04/03/2024 08:47 Note Text: AMB ROOMING INTAKE FLOWSHEET DATA Pain Pain Level: 4 Pain Location: Foot-Right Description: Aching, Dull Duration Units: Minutes Frequency: Intermittent Intervention/Comfort measure: Heat Patient presents with: Right Foot - Established Patient, Pain Patient presents for right heel pain. Hx of heel spur. States that a few months ago the pain started to get worse and it seems to be rubbing in her shoes. XRay prior to appointment. SUSSY 04/13/22 XR FOOT 3V AP/LAT/OBL RT Observed: 04/03 8:10 AM Status: F Source: [facility] * * *Final Report* * * DATE OF EXAM: Apr 03 2024 8:10AM [id number] [id number] - XR FOOT 3V AP/LAT/OBL RT / PROCEDURE REASON: Pain in right foot * * * * Physician Interpretation * * * * EXAMINATION: XR FOOT 3V AP/LAT/OBL RT CLINICAL HISTORY: Right foot pain Technique: XR FOOT 3V AP/LAT/OBL RT -- RIGHT with 3 views on 3 images Comparison: X-ray right calcaneus 03/27/2022 RESULT: No acute fracture or dislocation. Plantar and posterior calcaneal spurs. Increasing soft tissue calcifications in the distal right Achilles tendon. IMPRESSION: No acute osseous abnormality Animal Care Worker: CARMELLA Transcribe Date/Time: Apr 04 2024 4:08P Dictated by : COLEEN BARBA MD This examination was interpreted and the report reviewed and electronically signed by: COLEEN BARBA MD on Apr 04 2024 4:11PM EST [id number] PROGRESS Observed: 04/03/2024 8:00 AM Status: COMPLETED Source: [facility] HNO ID: [id number] Author: BILLIE TYSON RT(Toy) Service: ? Author Type: Technologist Type: Progress Notes Filed: 04/03/2024 09:23 Note Text: Radiology Service Progress Note PATIENT NAME: Cinthya Bone DATE OF SERVICE: April 03, 2024 TIME: 9:19 AM PATIENT IDENTITY VERIFICATION COMPLETED USING TWO (2) IDENTIFIERS: Name and Date of confirmed by patient verbally. FALL SCREENING: Has the patient had 2 falls in the last year or 1 fall with injury or currently using an Ambulatory Assistive Device (Walker, Cane, Wheelchair, Crutches, etc.)? Yes, Patient High Risk for Falls What interventions were put in place to prevent falls during this visit? Increased Observations by Caregivers PATIENT GENDER DATA: Assigned female at . status: : No status: NO. PATIENT RELEVANT IMPLANT DATA REVIEWED: Not Applicable PATIENT PRESENTS WITH AN IMPLANTABLE OR ATTACHED MATERIALS MANAGEMENT SUPERVISOR: No RADIOLOGY DEPARTMENT: General X-ray: Exam(s) Completed: Lower Extremity X-Ray(s): Foot, Right and Wt. Bearing PERIPHERAL IV DATA: Not applicable SIGNED BY: RT Anila(Toy) April 03, 2024 9:19 AM CNPN Observed: 03/13/2024 12:00 AM Status: COMPLETED Source: [facility] Telephone (Attention SciencesDYLAN) CINTHYA BONE ([id number]) 1970 F NFR Date Time Provider Department 03/13/24 JUAN C LOPEZ During your visit today, we recorded the following information about you: Juan C Lopez APRN.[employer] 03/13/2024 11:55 AM Signed Please let patient know due to the holiday and normal business hours at 180 I have not talked to her counselor yet but left a message for Kacey to call me. I should have her letter completed by end of week. Efrain Wright MA 03/13/2024 1:02 PM Signed Pt notified and verbalized understanding Efrain Wright MA Allergies As of Date: 03/13/2024 Noted Allergy Reaction CATS 2011 7 - Swelling Comments: rash Date Reviewed: 03/12/2024 Reviewed by: Mina Maher MD - Fully Assessed Reason for Visit: Results [95] Prescriptions as of 03/15/2024 - DULoxetine (CYMBALTA) 30 mg capsule Take 1 capsule by mouth once daily. - rOPINIRole (REQUIP) 0.5 mg tablet Take 1 tablet by mouth daily at bedtime. Take with 1mg tab for total of 1.5mg. - rOPINIRole (REQUIP) 1 mg tablet Take 1 tablet by mouth daily at bedtime. - omeprazole (PRILOSEC) 20 mg capsule TAKE TWO CAPSULES BY MOUTH ONCE DAILY BEFORE BREAKFAST - cyclobenzaprine (FLEXERIL) 10 mg tablet Take 1 tablet by mouth three times a day as needed for muscle spasm. - buPROPion XL (WELLBUTRIN XL) 300 mg 24 hr tablet Take 1 tablet by mouth once daily. - celecoxib (CELEBREX) 200 mg capsule Take 1 capsule by mouth once daily. - montelukast (SINGULAIR) 10 mg tablet Take 1 tablet by mouth daily at bedtime. - cyanocobalamin (VITAMIN B-12) 1,000 mcg tab Take 1,000 mcg by mouth once daily. - cholecalciferol (VITAMIN D-3) 400 unit tab Take 400 Units by mouth once daily. - metFORMIN ER (GLUCOPHAGE XR) 500 mg 24 hr tablet Take 2 tablets by mouth daily with dinner. - mometasone-formoterol (DULERA) 200-5 mcg/actuation inhaler Inhale 2 Puffs as instructed two times a day. - loratadine (CLARITIN) 10 mg tablet Take 1 tablet by mouth once daily as needed. FOR ALLERGY SYMPTOMS - albuterol HFA (PROVENTIL HFA, VENTOLIN HFA) 90 mcg/actuation inhaler INHALE 2 PUFFS BY MOUTH EVERY 6 HOURS NEEDED FOR SHORTNESS OF BREATH AND WHEEZING - Nebulizer Accessories kit Provide 1 kit. - albuterol (PROVENTIL) 2.5 mg /3 mL (0.083 %) nebulizer solution Use 3 mL via nebulizer every 4 hours as needed for wheezing/shortness of breath. Use over 5-15minutes. - fluticasone (FLONASE) 50 mcg/actuation nasal spray Use 1 [place] in each nostril once daily. - promethazine (PHENERGAN) 25 mg tablet Take 1 tablet by mouth every 6 hours as needed. - ProAir RespiClick 90 mcg/actuation breath activated (albuterol sulfate) Inhale 2 Puffs as instructed every 6 hours as needed. Problem List As Of Date 03/13/2024 Noted Resolved Shortness of breath [R06.02] 01/13/2011 Pneumonia, organism unspecified [J18.9] 07/15/2006 01/13/2011 Acute respiratory failure [J96.00] 07/15/2006 01/13/2011 ACUTE URI NOS [J06.9] 08/07/2007 09/10/2008 Gastroesophageal reflux disease without esophag*09/10/2008 Allergic rhinitis [J30.9] 09/10/2008 Moderate persistent asthma without complication*12/11/2008 Environmental allergies [Z91.09] Obesity, Class III, BMI >= 40 (morbid obesity) *12/03/2016 Irritable mood [R45.4] 03/04/2018 Post menopausal syndrome [N95.1] 03/04/2018 Tonsil asymmetry [J35.8] 03/04/2018 Encounter for screening for diabetes mellitus [*03/04/2018 Well adult exam [Z00.00] 09/01/2018 Medication management [Z79.899] 09/01/2018 Arthritis of knee [M17.10] 10/30/2020 Restless leg syndrome [G25.81] 10/30/2020 COVID-19 virus infection [U07.1] 10/14/2021 Fatty liver [K76.0] 01/04/2022 Liver cyst [K76.89] 01/08/2022 Situational depression [F43.21] 09/28/2022 DRE (obstructive sleep apnea) [G47.33] 11/01/2023 Class 3 severe obesity with serious comorbidity*12/21/2023 Hyperinsulinemia [E16.1] 12/21/2023 Encounter Status:Closed by JUAN C LOPEZ on 03/15/24 PROGRESS Observed: 03/12/2024 11:31 AM Status: COMPLETED Source: [facility]NO ID: [id number] Author: SANDIE HULL MA Service: ? Author Type: Computerized Machine [employer] Cutter Type: Progress Notes Filed: 04/02/2024 12:50 Note Text: PT ASSESSMENT - CASTING ROOM Cinthya presents for Application of brace. Applied DonJoy Reaction knee brace size XL/XXL to Left knee Patient has been instructed in Care and proper application of brace. Patient signed DonJoy PPA electronically for billing and verbalized understanding. Sandie Hull MA PROGRESS Observed: 03/12/2024 9:59 AM Status: COMPLETED Source: [facility]NO ID: [id number] Author: MINA MAHER MD Service: ? Author Type: Physician Type: Progress Notes Filed: 04/02/2024 12:50 Note Text: Mina Maher [facility] Orth[facility] [address] [facility] [address] Dept: [phone] Dept March 12, 2024 CHIEF COMPLAINT: Established Patient and Knee Pain of the Left Knee and Established Patient and Knee Pain of the Right Knee HPI Patient here for follow up 18 weeks post visit bilateral knee pain with injections given. Patient would like injections today. States injections help for about 2 months. Patient states her left knee has been giving out on her. Taking Celebrex and Tylenol arthritis and feels they do not help. ASSESSMENT: M25.561, M25.562, G89.29 Chronic pain of both knees (primary encounter diagnosis) M17.0 Primary osteoarthritis of both knees PLAN: Repeat injections. OBJECTIVE: Ms. Cinthya Bone is a pleasant 53 year old in no apparent distress. Gen:LMP 12/01/2010 Large Joint Arthro/Inj: bilateral knee joints Informed Consent Consent Obtained: Verbal [place] Protocol A moment to CARE was completed. SIGN IN Personnel directly involved with the procedure wore the appropriate PPE. Special Equipment: N/A Patient/Surrogate Stated/Verified: Patient name, Date of , Relevant allergies and Intended procedure TIME OUT Relevant labs, photos, and/or imaging studies have been reviewed. Intended patient and procedure match the source document(s). Consent documented and matches the intended procedure. Correct side/site marked and visible. Medications required for procedure verified. No fire risk assessment and interventions applicable. No implant(s) inserted.03/12/2024 10:41 AM The procedure site was prepped in the usual sterile fashion. Site: bilateral knee joints Medications (Right): 6 mg betamethasone acetate-betamethasone sodium phosphate 6 mg/mL Medications (Left): 6 mg betamethasone acetate-betamethasone sodium phosphate 6 mg/mL Anesthetics (Right): 4 mL lidocaine (PF) 10 mg/mL (1 %) Anesthetics (Left): 4 mL lidocaine (PF) 10 mg/mL (1 %) Outcome: Tolerated well, no immediate complications Post-injection instructions were reviewed with the patient and the patient voiced understanding of these instructions. SIGN OUT No specimen collected. No instruments, equipment or retained foreign bodies applicable. Post-procedure follow-up management communicated and Plan of Care Visit completed when applicable Imaging: Supporting Subjective Information Below: Past Surgical History: PAST SURGICAL HISTORY Procedure Laterality Date COLONOSCOPY FLX DX W/COLLJ SPEC WHEN PFRMD 05/10/2014 Colonoscopy EXC BREAST LES PREOP PLMT RAD MARKER OPEN 1 LES Left 01/05/2019 HYSTEROSCOPY, DIAGNOSTIC (SEPARATE 06/2010 Hysteroscopy AND curettage INCISE FINGER TENDON SHEATH Right 06/04/2020 Right ring trigger finger LIG/TRNSXJ FLP TUBE ABDL/VAG APPR UNI/BI Tubal ligation VAGINAL HYSTERECTOMY UTERUS 250 GM/< 12/08/2010 [facility] Medications: Current Outpatient Medications Medication Sig DULoxetine (CYMBALTA) 30 mg capsule Take 1 capsule by mouth once daily. rOPINIRole (REQUIP) 0.5 mg tablet Take 1 tablet by mouth daily at bedtime. Take with 1mg tab for total of 1.5mg. rOPINIRole (REQUIP) 1 mg tablet Take 1 tablet by mouth daily at bedtime. omeprazole (PRILOSEC) 20 mg capsule TAKE TWO CAPSULES BY MOUTH ONCE DAILY BEFORE BREAKFAST cyclobenzaprine (FLEXERIL) 10 mg tablet Take 1 tablet by mouth three times a day as needed for muscle spasm. buPROPion XL (WELLBUTRIN XL) 300 mg 24 hr tablet Take 1 tablet by mouth once daily. celecoxib (CELEBREX) 200 mg capsule Take 1 capsule by mouth once daily. montelukast (SINGULAIR) 10 mg tablet Take 1 tablet by mouth daily at bedtime. cyanocobalamin (VITAMIN B-12) 1,000 mcg tab Take 1,000 mcg by mouth once daily. cholecalciferol (VITAMIN D-3) 400 unit tab Take 400 Units by mouth once daily. metFORMIN ER (GLUCOPHAGE XR) 500 mg 24 hr tablet Take 2 tablets by mouth daily with dinner. mometasone-formoterol (DULERA) 200-5 mcg/actuation inhaler Inhale 2 Puffs as instructed two times a day. loratadine (CLARITIN) 10 mg tablet Take 1 tablet by mouth once daily as needed. FOR ALLERGY SYMPTOMS albuterol HFA (PROVENTIL HFA, VENTOLIN HFA) 90 mcg/actuation inhaler INHALE 2 PUFFS BY MOUTH EVERY 6 HOURS NEEDED FOR SHORTNESS OF BREATH AND WHEEZING albuterol (PROVENTIL) 2.5 mg /3 mL (0.083 %) nebulizer solution Use 3 mL via nebulizer every 4 hours as needed for wheezing/shortness of breath. Use over 5-15minutes. fluticasone (FLONASE) 50 mcg/actuation nasal spray Use 1 [place] in each nostril once daily. promethazine (PHENERGAN) 25 mg tablet Take 1 tablet by mouth every 6 hours as needed. ProAir RespiClick 90 mcg/actuation breath activated (albuterol sulfate) Inhale 2 Puffs as instructed every 6 hours as needed. Nebulizer Accessories kit Provide 1 kit. No current facility-administered medications for this visit. Allergies: Cats ROS: General (negative for fatigue, malaise, weight loss/gain) HEENT (negative for headache, earache, recent vision changes, sinus pain, sore throat) Respiratory (no recent shortness of breath, hemoptysis) CV (negative for chest tightness, palpitations) Musculoskeletal (see HPI) Psych (no depression, anxiety) Mina Maher MD CNOV Observed: 03/12/2024 9:30 AM Status: COMPLETED Source: [facility] Office Visit ([facility]) CINTHYA BONE ([id number]) 1970 F NFR Date Time Provider Department 03/12/24 9:30 AM MINA MAHER During your visit today, we recorded the following information about you: Mina Maher MD 04/02/2024 12:50 PM Signed Mina Maher MD Department of Orthopaedics Orthopaedics [address] [facility] [address] Dept: [phone] Dept March 12, 2024 CHIEF COMPLAINT: Established Patient and Knee Pain of the Left Knee and Established Patient and Knee Pain of the Right Knee HPI Patient here for follow up 18 weeks post visit bilateral knee pain with injections given. Patient would like injections today. States injections help for about 2 months. Patient states her left knee has been giving out on her. Taking Celebrex and Tylenol arthritis and feels they do not help. ASSESSMENT: M25.561, M25.562, G89.29 Chronic pain of both knees (primary encounter diagnosis) M17.0 Primary osteoarthritis of both knees PLAN: Repeat injections. OBJECTIVE: Ms. Cinthya Bone is a pleasant 53 year old in no apparent distress. Gen:LMP 12/01/2010 Large Joint Arthro/Inj: bilateral knee joints Informed Consent Consent Obtained: Verbal [place] Protocol A moment to CARE was completed. SIGN IN Personnel directly involved with the procedure wore the appropriate PPE. Special Equipment: N/A Patient/Surrogate Stated/Verified: Patient name, Date of , Relevant allergies and Intended procedure TIME OUT Relevant labs, photos, and/or imaging studies have been reviewed. Intended patient and procedure match the source document(s). Consent documented and matches the intended procedure. Correct side/site marked and visible. Medications required for procedure verified. No fire risk assessment and interventions applicable. No implant(s) inserted.03/12/2024 10:41 AM The procedure site was prepped in the usual sterile fashion. Site: bilateral knee joints Medications (Right): 6 mg betamethasone acetate-betamethasone sodium phosphate 6 mg/mL Medications (Left): 6 mg betamethasone acetate-betamethasone sodium phosphate 6 mg/mL Anesthetics (Right): 4 mL lidocaine (PF) 10 mg/mL (1 %) Anesthetics (Left): 4 mL lidocaine (PF) 10 mg/mL (1 %) Outcome: Tolerated well, no immediate complications Post-injection instructions were reviewed with the patient and the patient voiced understanding of these instructions. SIGN OUT No specimen collected. No instruments, equipment or retained foreign bodies applicable. Post-procedure follow-up management communicated and Plan of Care Visit completed when applicable Imaging: Supporting Subjective Information Below: Past Surgical History: PAST SURGICAL HISTORY Procedure Laterality Date COLONOSCOPY FLX DX W/COLLJ SPEC WHEN PFRMD 05/10/2014 Colonoscopy EXC BREAST LES PREOP PLMT RAD MARKER OPEN 1 LES Left 01/05/2019 HYSTEROSCOPY, DIAGNOSTIC (SEPARATE 06/2010 Hysteroscopy AND curettage INCISE FINGER TENDON SHEATH Right 06/04/2020 Right ring trigger finger LIG/TRNSXJ FLP TUBE ABDL/VAG APPR UNI/BI Tubal ligation VAGINAL HYSTERECTOMY UTERUS 250 GM/< 12/08/2010 [facility] Medications: Current Outpatient Medications Medication Sig DULoxetine (CYMBALTA) 30 mg capsule Take 1 capsule by mouth once daily. rOPINIRole (REQUIP) 0.5 mg tablet Take 1 tablet by mouth daily at bedtime. Take with 1mg tab for total of 1.5mg. rOPINIRole (REQUIP) 1 mg tablet Take 1 tablet by mouth daily at bedtime. omeprazole (PRILOSEC) 20 mg capsule TAKE TWO CAPSULES BY MOUTH ONCE DAILY BEFORE BREAKFAST cyclobenzaprine (FLEXERIL) 10 mg tablet Take 1 tablet by mouth three times a day as needed for muscle spasm. buPROPion XL (WELLBUTRIN XL) 300 mg 24 hr tablet Take 1 tablet by mouth once daily. celecoxib (CELEBREX) 200 mg capsule Take 1 capsule by mouth once daily. montelukast (SINGULAIR) 10 mg tablet Take 1 tablet by mouth daily at bedtime. cyanocobalamin (VITAMIN B-12) 1,000 mcg tab Take 1,000 mcg by mouth once daily. cholecalciferol (VITAMIN D-3) 400 unit tab Take 400 Units by mouth once daily. metFORMIN ER (GLUCOPHAGE XR) 500 mg 24 hr tablet Take 2 tablets by mouth daily with dinner. mometasone-formoterol (DULERA) 200-5 mcg/actuation inhaler Inhale 2 Puffs as instructed two times a day. loratadine (CLARITIN) 10 mg tablet Take 1 tablet by mouth once daily as needed. FOR ALLERGY SYMPTOMS albuterol HFA (PROVENTIL HFA, VENTOLIN HFA) 90 mcg/actuation inhaler INHALE 2 PUFFS BY MOUTH EVERY 6 HOURS NEEDED FOR SHORTNESS OF BREATH AND WHEEZING albuterol (PROVENTIL) 2.5 mg /3 mL (0.083 %) nebulizer solution Use 3 mL via nebulizer every 4 hours as needed for wheezing/shortness of breath. Use over 5-15minutes. fluticasone (FLONASE) 50 mcg/actuation nasal spray Use 1 [place] in each nostril once daily. promethazine (PHENERGAN) 25 mg tablet Take 1 tablet by mouth every 6 hours as needed. ProAir RespiClick 90 mcg/actuation breath activated (albuterol sulfate) Inhale 2 Puffs as instructed every 6 hours as needed. Nebulizer Accessories kit Provide 1 kit. No current facility-administered medications for this visit. Allergies: Cats ROS: General (negative for fatigue, malaise, weight loss/gain) HEENT (negative for headache, earache, recent vision changes, sinus pain, sore throat) Respiratory (no recent shortness of breath, hemoptysis) CV (negative for chest tightness, palpitations) Musculoskeletal (see HPI) Psych (no depression, anxiety) MD Kurtis Blank Linda, MA 04/02/2024 12:50 PM Signed PT ASSESSMENT - CASTING ROOM [place] presents for Application of brace. Applied DonJoy Reaction knee brace size XL/XXL to Left knee Patient has been instructed in Care and proper application of brace. Patient signed Jose Alberto PPA electronically for billing and verbalized understanding. Sandie Hull MA Allergies As of Date: 03/12/2024 Noted Allergy Reaction CATS 2011 7 - Swelling Comments: rash Date Reviewed: 03/12/2024 Reviewed by: Mina Maher MD - Fully Assessed Reason for Visit: Established Patient [175] Knee Pain [132] Established Patient [175] Knee Pain [132] Primary Visit Diagnosis:Chronic pain of both knees [M25.561, M25.562, G89.29] Other Visit Diagnosis:Primary osteoarthritis of both knees [M17.0] Order(s):Large Joint Arthro/Inj: bilateral knee joints [MTV539] Order #: [id number] [] betamethasone acetate-betamethasone sodium phosphate 6 mg injection (CELESTONE)Disp: Rfl: [] betamethasone acetate-betamethasone sodium phosphate 6 mg injection (CELESTONE)Disp: Rfl: [] lidocaine (PF) 10 mg/mL (1 %) 4 mL injection (XYLOCAINE)Disp: Rfl: [] lidocaine (PF) 10 mg/mL (1 %) 4 mL injection (XYLOCAINE)Disp: Rfl: Prescriptions as of 04/02/2024 - DULoxetine (CYMBALTA) 30 mg capsule Take 1 capsule by mouth once daily. - rOPINIRole (REQUIP) 0.5 mg tablet Take 1 tablet by mouth daily at bedtime. Take with 1mg tab for total of 1.5mg. - rOPINIRole (REQUIP) 1 mg tablet Take 1 tablet by mouth daily at bedtime. - omeprazole (PRILOSEC) 20 mg capsule TAKE TWO CAPSULES BY MOUTH ONCE DAILY BEFORE BREAKFAST - cyclobenzaprine (FLEXERIL) 10 mg tablet Take 1 tablet by mouth three times a day as needed for muscle spasm. - buPROPion XL (WELLBUTRIN XL) 300 mg 24 hr tablet Take 1 tablet by mouth once daily. - celecoxib (CELEBREX) 200 mg capsule Take 1 capsule by mouth once daily. - montelukast (SINGULAIR) 10 mg tablet Take 1 tablet by mouth daily at bedtime. - cyanocobalamin (VITAMIN B-12) 1,000 mcg tab Take 1,000 mcg by mouth once daily. - cholecalciferol (VITAMIN D-3) 400 unit tab Take 400 Units by mouth once daily. - metFORMIN ER (GLUCOPHAGE XR) 500 mg 24 hr tablet Take 2 tablets by mouth daily with dinner. - mometasone-formoterol (DULERA) 200-5 mcg/actuation inhaler Inhale 2 Puffs as instructed two times a day. - loratadine (CLARITIN) 10 mg tablet Take 1 tablet by mouth once daily as needed. FOR ALLERGY SYMPTOMS - albuterol HFA (PROVENTIL HFA, VENTOLIN HFA) 90 mcg/actuation inhaler INHALE 2 PUFFS BY MOUTH EVERY 6 HOURS NEEDED FOR SHORTNESS OF BREATH AND WHEEZING - Nebulizer Accessories kit Provide 1 kit. - albuterol (PROVENTIL) 2.5 mg /3 mL (0.083 %) nebulizer solution Use 3 mL via nebulizer every 4 hours as needed for wheezing/shortness of breath. Use over 5-15minutes. - fluticasone (FLONASE) 50 mcg/actuation nasal spray Use 1 [place] in each nostril once daily. - promethazine (PHENERGAN) 25 mg tablet Take 1 tablet by mouth every 6 hours as needed. - ProAir RespiClick 90 mcg/actuation breath activated (albuterol sulfate) Inhale 2 Puffs as instructed every 6 hours as needed. Problem List As Of Date 03/12/2024 Noted Resolved Shortness of breath [R06.02] 01/13/2011 Pneumonia, organism unspecified [J18.9] 07/15/2006 01/13/2011 Acute respiratory failure [J96.00] 07/15/2006 01/13/2011 ACUTE URI NOS [J06.9] 08/07/2007 09/10/2008 Gastroesophageal reflux disease without esophag*09/10/2008 Allergic rhinitis [J30.9] 09/10/2008 Moderate persistent asthma without complication*12/11/2008 Environmental allergies [Z91.09] Obesity, Class III, BMI >= 40 (morbid obesity) *12/03/2016 Irritable mood [R45.4] 03/04/2018 Post menopausal syndrome [N95.1] 03/04/2018 Tonsil asymmetry [J35.8] 03/04/2018 Encounter for screening for diabetes mellitus [*03/04/2018 Well adult exam [Z00.00] 09/01/2018 Medication management [Z79.899] 09/01/2018 Arthritis of knee [M17.10] 10/30/2020 Restless leg syndrome [G25.81] 10/30/2020 COVID-19 virus infection [U07.1] 10/14/2021 Fatty liver [K76.0] 01/04/2022 Liver cyst [K76.89] 01/08/2022 Situational depression [F43.21] 09/28/2022 DRE (obstructive sleep apnea) [G47.33] 11/01/2023 Class 3 severe obesity with serious comorbidity*12/21/2023 Hyperinsulinemia [E16.1] 12/21/2023 Prescriptions ordered this encounter Disp Refills Start End BETAMETHASONE ACETATE AND SODIUM ANNMARIE* 03/12/2024 03/12/2024 Route: Inj-ORTHO BETAMETHASONE ACETATE AND SODIUM ANNMARIE* 03/12/2024 03/12/2024 Route: Inj-ORTHO LIDOCAINE (PF) 10 MG/ML (1 %) INJECT* 03/12/2024 03/12/2024 Route: Inj-ORTHO LIDOCAINE (PF) 10 MG/ML (1 %) INJECT* 03/12/2024 03/12/2024 Route: Inj-ORTHO Letter Text Encounter Status:Closed by MINA MAHER on 04/02/24 CNOV Observed: 03/09/2024 11:40 AM Status: COMPLETED Source: [facility] BONE,CINTHYA Ojeda ([id number]) 1970 F NFR Date Time Provider Department 03/09/24 11:40 AM JUAN C LOPEZ During your visit today, we recorded the following information about you: Pulse Respiration Blood pressure Weight 78/minute 14/minute 131/83 140.6 kg Juan C Lopez APRN.[employer] 03/09/2024 11:49 AM Signed Chief Complaint Patient presents with: Follow Up HPI Cinthya Ojeda Lizandro is a 53 year old female who presents here today for Above Complaints.. Patient presents for follow up for mental health. Patient reports she currently is in counseling at [facility] and is awaiting appt with psychologist through [facility] as well. Patient has protective order is in place against her , patient's oldest son has disowned her d/t situation. Patient also has custody of grandson. Past medical history, appointments, medications, allergies reviewed. Previous Medical History PAST MEDICAL HISTORY Diagnosis Date Allergic rhinitis, cause unspecified 09/10/2008 Arthritis Arthritis of knee 10/30/2020 Asthma Benign neoplasm of left breast 2019 COVID-19 virus infection 10/14/2021 10/14/2021 Environmental allergies Never formally tested. Sneezes, itches around cats. Excessive or frequent menstruation Heavy periods Fatty liver 01/04/2022 Noted on US 12/2021 Gastroesophageal reflux disease without esophagitis 09/10/2008 Hemorrhage of gastrointestinal tract, unspecified 05/10/2014 Irregular menstrual cycle Irregular periods Liver cyst 01/08/2022 MRI: 12/2021 Mild persistent asthma without complication 12/11/2008 Obesity, Class III, BMI >= 40 (morbid obesity) E66.01 12/03/2016 Pneumonia 2008 Required intubation Restless leg syndrome 10/30/2020 Shortness of breath 2006 Was on a ventolator with pneumonia Situational depression 09/28/2022 Tonsil asymmetry 03/04/2018 Lt at 2+ Rt normal. chronic Well adult exam 09/01/2018 Done 10/30/2020 Previous Surgical History PAST SURGICAL HISTORY Procedure Laterality Date COLONOSCOPY FLX DX W/COLLJ SPEC WHEN PFRMD 05/10/2014 Colonoscopy EXC BREAST LES PREOP PLMT RAD MARKER OPEN 1 LES Left 01/05/2019 HYSTEROSCOPY, DIAGNOSTIC (SEPARATE 06/2010 Hysteroscopy AND curettage INCISE FINGER TENDON SHEATH Right 06/04/2020 Right ring trigger finger LIG/TRNSXJ FLP TUBE ABDL/VAG APPR UNI/BI Tubal ligation VAGINAL HYSTERECTOMY UTERUS 250 GM/< 12/08/2010 [facility] Family History FAMILY HISTORY Problem Relation Age of Onset Obesity Mother Cancer Father Stomach Heart Attack Brother 52 Obesity Brother Hypertension Brother Obesity Maternal Grandmother Obesity Maternal Grandfather Heart Paternal Grandmother COPD Paternal Grandmother Emphysema. Smoker. Obesity Paternal Grandmother Obesity Paternal Grandfather Asthma Son Breast Cancer Paternal Aunt Diabetes Paternal Aunt Patient Allergies ALLERGIES Allergen Reactions Cats Swelling rash Current Medications Current Outpatient Medications on File Prior to Visit Medication Sig omeprazole (PRILOSEC) 20 mg capsule TAKE TWO CAPSULES BY MOUTH ONCE DAILY BEFORE BREAKFAST cyclobenzaprine (FLEXERIL) 10 mg tablet Take 1 tablet by mouth three times a day as needed for muscle spasm. rOPINIRole (REQUIP) 0.5 mg tablet Take one tab 30-45 mi prior to bed for a wee then go to taking two before bed. buPROPion XL (WELLBUTRIN XL) 300 mg 24 hr tablet Take 1 tablet by mouth once daily. celecoxib (CELEBREX) 200 mg capsule Take 1 capsule by mouth once daily. montelukast (SINGULAIR) 10 mg tablet Take 1 tablet by mouth daily at bedtime. cyanocobalamin (VITAMIN B-12) 1,000 mcg tab Take 1,000 mcg by mouth once daily. cholecalciferol (VITAMIN D-3) 400 unit tab Take 400 Units by mouth once daily. metFORMIN ER (GLUCOPHAGE XR) 500 mg 24 hr tablet Take 2 tablets by mouth daily with dinner. mometasone-formoterol (DULERA) 200-5 mcg/actuation inhaler Inhale 2 Puffs as instructed two times a day. loratadine (CLARITIN) 10 mg tablet Take 1 tablet by mouth once daily as needed. FOR ALLERGY SYMPTOMS DULoxetine (CYMBALTA) 20 mg capsule Take 1 capsule by mouth once daily. albuterol HFA (PROVENTIL HFA, VENTOLIN HFA) 90 mcg/actuation inhaler INHALE 2 PUFFS BY MOUTH EVERY 6 HOURS NEEDED FOR SHORTNESS OF BREATH AND WHEEZING fluticasone (FLONASE) 50 mcg/actuation nasal spray Use 1 [place] in each nostril once daily. promethazine (PHENERGAN) 25 mg tablet Take 1 tablet by mouth every 6 hours as needed. ProAir RespiClick 90 mcg/actuation breath activated (albuterol sulfate) Inhale 2 Puffs as instructed every 6 hours as needed. Nebulizer Accessories kit Provide 1 kit. albuterol (PROVENTIL) 2.5 mg /3 mL (0.083 %) nebulizer solution Use 3 mL via nebulizer every 4 hours as needed for wheezing/shortness of breath. Use over 5-15minutes. No current facility-administered medications on file prior to visit. Social History Social History Tobacco Use Smoking status: Never Smokeless tobacco: Never Tobacco comments: ETS exposure: Spouse and son smoke in home. Other family visitors smoke. Parents and Grandparents smoked in childhood home. Vaping Use Vaping status: Never Used Substance Use Topics Alcohol use: Not Currently Comment: social Drug use: Not Currently Review of Symptoms REVIEW OF SYSTEMS SEE HPI EXAM: BP 131/83 Pulse 78 Resp 14 Wt (!) 140.6 kg (310 lb) LMP 12/01/2010 (Exact Date) BMI 53.78 kg/m? General Appearance: Obese and anxious appearing. . Health Maintenance List Anxiety Screening Never done Shingrix Vaccine(1 of 2) Never done DTaP,Tdap,Td Vaccine(3 - Td or Tdap) due on 03/11/2023 Covid-19 Vaccine(3 - 2023-) due on 10/23/2023 Colorectal Cancer Screening due on 05/10/2024 Mammogram Screening due on 08/07/2024 Annual PCP Team Chronic Disease Visit due on 02/27/2025 Diabetes Screening due on 11/06/2026 Lipid Screening due on 11/06/2028 Hepatitis B Vaccine Completed Spirometry Completed Influenza Vaccine Completed Hepatitis C Screening Completed Pneumococcal Vaccine: 50+ Completed Cervical Cancer Screening Discontinued HIV Screening Discontinued Data reviewed NADIRA-7 12/19/2017 08/26/2022 08/29/2023 03/09/2024 NADIRA-7 All Questions Feeling nervous, anxious, or on edge Several days Several days Several days More than half the days Not being able to stop or control worrying Several days More than half the days Several days More than half the days Worrying too much about different things - Several days Several days More than half the days Trouble relaxing - More than half the days More than half the days Nearly Everyday Being so restless that it is hard to sit still - Not at all Several days More than half the days Becoming easily annoyed or irritable - Several days Several days More than half the days Feeling afraid, as if something awful might happen - Not at all Several days Several days NADIRA-7 Score - 7 8 14 Details PHQ-9 More data exists 08/29/2023 10/10/2023 01/03/2024 02/27/2024 03/09/2024 PHQ-9 Scores Little interest or pleasure in doing things: Several days More than half the days Not at all Several days Nearly every day Feeling down, depressed, or hopeless: Several days More than half the days Not at all Not at all Nearly every day Trouble falling or staying asleep, or sleeping too much More than half the days Several days Not at all Several days Nearly every day Feeling tired or having little energy More than half the days Several days Not at all Several days More than half the days Poor appetite or overeating Several days Not at all Several days Several days Nearly every day Feeling bad about yourself - or that you are a failure or have let yourself or your family down More than half the days Several days Not at all Not at all More than half the days Trouble concentrating on things, such as reading the newspaper or watching television More than half the days Several days Not at all Not at all More than half the days Moving or speaking so slowly that other people could have noticed. Or the opposite - being so fidgety or restless that you have been moving around a lot more than usual More than half the days Several days Not at all Not at all Several days Thoughts that you would be better off , or of hurting yourself in some way Not at all More than half the days Not at all Not at all Several days PHQ-9 Score 13 11 1 4 20 Details ASSESSMENT/PLAN: 1. NADIRA (generalized anxiety disorder) - ICD9: 300.02, ICD10: F41.1 (primary diagnosis) - DULOXETINE 30 MG CAPSULE,DELAYED RELEASE 2. Situational depression - ICD9: 309.0, ICD10: F43.21 - DULOXETINE 30 MG CAPSULE,DELAYED RELEASE 3. Restless leg syndrome - ICD9: 333.94, ICD10: G25.81 - ROPINIROLE 0.5 MG TABLET - ROPINIROLE 1 MG TABLET Will contact Kacey Degroot at [facility] to discuss patient and when patient will be evaluated by psychologist. Patient is requesting exemption letter for [facility] for [employer] benefits as she feels that with her current mental health she can not work. 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 Take with 1mg tab for total of 1.5mg.Disp: 60 tabletRfl: 0 rOPINIRole (REQUIP) 1 mg tabletTake 1 tablet by mouth daily at bedtime.Disp: 60 tabletRfl: 0 Prescriptions as of 03/09/2024 - DULoxetine (CYMBALTA) 30 mg capsule Take 1 capsule by mouth once daily. - rOPINIRole (REQUIP) 0.5 mg tablet Take 1 tablet by mouth daily at bedtime. Take with 1mg tab for total of 1.5mg. - rOPINIRole (REQUIP) 1 mg tablet Take 1 tablet by mouth daily at bedtime. - omeprazole (PRILOSEC) 20 mg capsule TAKE TWO CAPSULES BY MOUTH ONCE DAILY BEFORE BREAKFAST - cyclobenzaprine (FLEXERIL) 10 mg tablet Take 1 tablet by mouth three times a day as needed for muscle spasm. - buPROPion XL (WELLBUTRIN XL) 300 mg 24 hr tablet Take 1 tablet by mouth once daily. - celecoxib (CELEBREX) 200 mg capsule Take 1 capsule by mouth once daily. - montelukast (SINGULAIR) 10 mg tablet Take 1 tablet by mouth daily at bedtime. - cyanocobalamin (VITAMIN B-12) 1,000 mcg tab Take 1,000 mcg by mouth once daily. - cholecalciferol (VITAMIN D-3) 400 unit tab Take 400 Units by mouth once daily. - metFORMIN ER (GLUCOPHAGE XR) 500 mg 24 hr tablet Take 2 tablets by mouth daily with dinner. - mometasone-formoterol (DULERA) 200-5 mcg/actuation inhaler Inhale 2 Puffs as instructed two times a day. - loratadine (CLARITIN) 10 mg tablet Take 1 tablet by mouth once daily as needed. FOR ALLERGY SYMPTOMS - albuterol HFA (PROVENTIL HFA, VENTOLIN HFA) 90 mcg/actuation inhaler INHALE 2 PUFFS BY MOUTH EVERY 6 HOURS NEEDED FOR SHORTNESS OF BREATH AND WHEEZING - Nebulizer Accessories kit Provide 1 kit. - albuterol (PROVENTIL) 2.5 mg /3 mL (0.083 %) nebulizer solution Use 3 mL via nebulizer every 4 hours as needed for wheezing/shortness of breath. Use over 5-15minutes. - fluticasone (FLONASE) 50 mcg/actuation nasal spray Use 1 [place] in each nostril once daily. - promethazine (PHENERGAN) 25 mg tablet Take 1 tablet by mouth every 6 hours as needed. - ProAir RespiClick 90 mcg/actuation breath activated (albuterol sulfate) Inhale 2 Puffs as instructed every 6 hours as needed. Problem List As Of Date 03/09/2024 Noted Resolved Shortness of breath [R06.02] 01/13/2011 Pneumonia, organism unspecified [J18.9] 07/15/2006 01/13/2011 Acute respiratory failure [J96.00] 07/15/2006 01/13/2011 ACUTE URI NOS [J06.9] 08/07/2007 09/10/2008 Gastroesophageal reflux disease without esophag*09/10/2008 Allergic rhinitis [J30.9] 09/10/2008 Moderate persistent asthma without complication*12/11/2008 Environmental allergies [Z91.09] Obesity, Class III, BMI >= 40 (morbid obesity) *12/03/2016 Irritable mood [R45.4] 03/04/2018 Post menopausal syndrome [N95.1] 03/04/2018 Tonsil asymmetry [J35.8] 03/04/2018 Encounter for screening for diabetes mellitus [*03/04/2018 Well adult exam [Z00.00] 09/01/2018 Medication management [Z79.899] 09/01/2018 Arthritis of knee [M17.10] 10/30/2020 Restless leg syndrome [G25.81] 10/30/2020 COVID-19 virus infection [U07.1] 10/14/2021 Fatty liver [K76.0] 01/04/2022 Liver cyst [K76.89] 01/08/2022 Situational depression [F43.21] 09/28/2022 DRE (obstructive sleep apnea) [G47.33] 11/01/2023 Class 3 severe obesity with serious comorbidity*12/21/2023 Hyperinsulinemia [E16.1] 12/21/2023 Prescriptions ordered this encounter Disp Refills Start End DULOXETINE 30 MG CAPSULE,DELAYED REL* 60 c* 0 03/09/2024 Route: ORAL Sig: Take 1 capsule by mouth once daily. ROPINIROLE 0.5 MG TABLET 60 t* 0 03/09/2024 Route: ORAL Sig: Take 1 tablet by mouth daily at bedtime. Take with 1mg tab for total of 1.5mg. ROPINIROLE 1 MG TABLET 60 t* 0 03/09/2024 Route: ORAL Sig: Take 1 tablet by mouth daily at bedtime. Medications Discontinued During This Encounter Prescriptions - DULoxetine (CYMBALTA) 20 mg capsule (Discontinued) Take 1 capsule by mouth once daily. - rOPINIRole (REQUIP) 0.5 mg tablet (Discontinued) Take one tab 30-45 mi prior to bed for a wee then go to taking two before bed. Disposition: Return in about 6 weeks (around 04/20/2024) for medication follow up. Follow-up and Disposition History for Encounter Date Provider Department Center 03/09/2024 [id number] C LOPEZ [facility] Shauna Encounter Status:Closed by JUAN C LOPEZ on 03/09/24 PROGRESS Observed: 03/09/2024 11:31 AM Status: COMPLETED Source: [facility] HNO ID: [id number] Author: JUAN C LOPEZ APRN.COMMERCIAL CRABBER Service: ? Author Type: Nurse Practitioner Type: Progress Notes Filed: 03/09/2024 11:49 Note Text: Chief Complaint Patient presents with: Follow Up HPI Cinthya Bone is a 53 year old female who presents here today for Above Complaints.. Patient presents for follow up for mental health. Patient reports she currently is in counseling at [facility] and is awaiting appt with psychologist through [facility] as well. Patient has protective order is in place against her , patient's oldest son has disowned her d/t situation. Patient also has custody of grandson. Past medical history, appointments, medications, allergies reviewed. Previous Medical History PAST MEDICAL HISTORY Diagnosis Date Allergic rhinitis, cause unspecified 09/10/2008 Arthritis Arthritis of knee 10/30/2020 Asthma Benign neoplasm of left breast 2019 COVID-19 virus infection 10/14/2021 10/14/2021 Environmental allergies Never formally tested. Sneezes, itches around cats. Excessive or frequent menstruation Heavy periods Fatty liver 01/04/2022 Noted on US 12/2021 Gastroesophageal reflux disease without esophagitis 09/10/2008 Hemorrhage of gastrointestinal tract, unspecified 05/10/2014 Irregular menstrual cycle Irregular periods Liver cyst 01/08/2022 MRI: 12/2021 Mild persistent asthma without complication 12/11/2008 Obesity, Class III, BMI >= 40 (morbid obesity) E66.01 12/03/2016 Pneumonia 2008 Required intubation Restless leg syndrome 10/30/2020 Shortness of breath 2006 Was on a ventolator with pneumonia Situational depression 09/28/2022 Tonsil asymmetry 03/04/2018 Lt at 2+ Rt normal. chronic Well adult exam 09/01/2018 Done 10/30/2020 Previous Surgical History PAST SURGICAL HISTORY Procedure Laterality Date COLONOSCOPY FLX DX W/COLLJ SPEC WHEN PFRMD 05/10/2014 Colonoscopy EXC BREAST LES PREOP PLMT RAD MARKER OPEN 1 LES Left 01/05/2019 HYSTEROSCOPY, DIAGNOSTIC (SEPARATE 06/2010 Hysteroscopy AND curettage INCISE FINGER TENDON SHEATH Right 06/04/2020 Right ring trigger finger LIG/TRNSXJ FLP TUBE ABDL/VAG APPR UNI/BI Tubal ligation VAGINAL HYSTERECTOMY UTERUS 250 GM/< 12/08/2010 TVH Family History FAMILY HISTORY Problem Relation Age of Onset Obesity Mother Cancer Father Stomach Heart Attack Brother 52 Obesity Brother Hypertension Brother Obesity Maternal Grandmother Obesity Maternal Grandfather Heart Paternal Grandmother COPD Paternal Grandmother Emphysema. Smoker. Obesity Paternal Grandmother Obesity Paternal Grandfather Asthma Son Breast Cancer Paternal Aunt Diabetes Paternal Aunt Patient Allergies ALLERGIES Allergen Reactions Cats Swelling rash Current Medications Current Outpatient Medications on File Prior to Visit Medication Sig omeprazole (PRILOSEC) 20 mg capsule TAKE TWO CAPSULES BY MOUTH ONCE DAILY BEFORE BREAKFAST cyclobenzaprine (FLEXERIL) 10 mg tablet Take 1 tablet by mouth three times a day as needed for muscle spasm. rOPINIRole (REQUIP) 0.5 mg tablet Take one tab 30-45 mi prior to bed for a wee then go to taking two before bed. buPROPion XL (WELLBUTRIN XL) 300 mg 24 hr tablet Take 1 tablet by mouth once daily. celecoxib (CELEBREX) 200 mg capsule Take 1 capsule by mouth once daily. montelukast (SINGULAIR) 10 mg tablet Take 1 tablet by mouth daily at bedtime. cyanocobalamin (VITAMIN B-12) 1,000 mcg tab Take 1,000 mcg by mouth once daily. cholecalciferol (VITAMIN D-3) 400 unit tab Take 400 Units by mouth once daily. metFORMIN ER (GLUCOPHAGE XR) 500 mg 24 hr tablet Take 2 tablets by mouth daily with dinner. mometasone-formoterol (DULERA) 200-5 mcg/actuation inhaler Inhale 2 Puffs as instructed two times a day. loratadine (CLARITIN) 10 mg tablet Take 1 tablet by mouth once daily as needed. FOR ALLERGY SYMPTOMS DULoxetine (CYMBALTA) 20 mg capsule Take 1 capsule by mouth once daily. albuterol HFA (PROVENTIL HFA, VENTOLIN HFA) 90 mcg/actuation inhaler INHALE 2 PUFFS BY MOUTH EVERY 6 HOURS NEEDED FOR SHORTNESS OF BREATH AND WHEEZING fluticasone (FLONASE) 50 mcg/actuation nasal spray Use 1 [place] in each nostril once daily. promethazine (PHENERGAN) 25 mg tablet Take 1 tablet by mouth every 6 hours as needed. ProAir RespiClick 90 mcg/actuation breath activated (albuterol sulfate) Inhale 2 Puffs as instructed every 6 hours as needed. Nebulizer Accessories kit Provide 1 kit. albuterol (PROVENTIL) 2.5 mg /3 mL (0.083 %) nebulizer solution Use 3 mL via nebulizer every 4 hours as needed for wheezing/shortness of breath. Use over 5-15minutes. No current facility-administered medications on file prior to visit. Social History Social History Tobacco Use Smoking status: Never Smokeless tobacco: Never Tobacco comments: ETS exposure: Spouse and son smoke in home. Other family visitors smoke. Parents and Grandparents smoked in childhood home. Vaping Use Vaping status: Never Used Substance Use Topics Alcohol use: Not Currently Comment: social Drug use: Not Currently Review of Symptoms REVIEW OF SYSTEMS SEE HPI EXAM: BP 131/83 Pulse 78 Resp 14 Wt (!) 140.6 kg (310 lb) LMP 12/01/2010 (Exact Date) BMI 53.78 kg/m? General Appearance: Obese and anxious appearing. . Health Maintenance List Anxiety Screening Never done Shingrix Vaccine(1 of 2) Never done DTaP,Tdap,Td Vaccine(3 - Td or Tdap) due on 03/11/2023 Covid-19 Vaccine(2023- season) due on 10/23/2023 Colorectal Cancer Screening due on 05/10/2024 Mammogram Screening due on 08/07/2024 Annual PCP Team Chronic Disease Visit due on 02/27/2025 Diabetes Screening due on 11/06/2026 Lipid Screening due on 11/06/2028 Hepatitis B Vaccine Completed Spirometry Completed Influenza Vaccine Completed Hepatitis C Screening Completed Pneumococcal Vaccine: 50+ Completed Cervical Cancer Screening Discontinued HIV Screening Discontinued Data reviewed NADIRA-7 12/19/2017 08/26/2022 08/29/2023 03/09/2024 NADIRA-7 All Questions Feeling nervous, anxious, or on edge Several days Several days Several days More than half the days Not being able to stop or control worrying Several days More than half the days Several days More than half the days Worrying too much about different things - Several days Several days More than half the days Trouble relaxing - More than half the days More than half the days Nearly Everyday Being so restless that it is hard to sit still - Not at all Several days More than half the days Becoming easily annoyed or irritable - Several days Several days More than half the days Feeling afraid, as if something awful might happen - Not at all Several days Several days NADIRA-7 Score - 7 8 14 Details PHQ-9 More data exists 08/29/2023 10/10/2023 01/03/2024 02/27/2024 03/09/2024 PHQ-9 Scores Little interest or pleasure in doing things: Several days More than half the days Not at all Several days Nearly every day Feeling down, depressed, or hopeless: Several days More than half the days Not at all Not at all Nearly every day Trouble falling or staying asleep, or sleeping too much More than half the days Several days Not at all Several days Nearly every day Feeling tired or having little energy More than half the days Several days Not at all Several days More than half the days Poor appetite or overeating Several days Not at all Several days Several days Nearly every day Feeling bad about yourself - or that you are a failure or have let yourself or your family down More than half the days Several days Not at all Not at all More than half the days Trouble concentrating on things, such as reading the newspaper or watching television More than half the days Several days Not at all Not at all More than half the days Moving or speaking so slowly that other people could have noticed. Or the opposite - being so fidgety or restless that you have been moving around a lot more than usual More than half the days Several days Not at all Not at all Several days Thoughts that you would be better off , or of hurting yourself in some way Not at all More than half the days Not at all Not at all Several days PHQ-9 Score 13 11 1 4 20 Details ASSESSMENT/PLAN: 1. NADIRA (generalized anxiety disorder) - ICD9: 300.02, ICD10: F41.1 (primary diagnosis) - DULOXETINE 30 MG CAPSULE,DELAYED RELEASE 2. Situational depression - ICD9: 309.0, ICD10: F43.21 - DULOXETINE 30 MG CAPSULE,DELAYED RELEASE 3. Restless leg syndrome - ICD9: 333.94, ICD10: G25.81 - ROPINIROLE 0.5 MG TABLET - ROPINIROLE 1 MG TABLET Will contact Kacey Degroot at [facility] to discuss patient and when patient will be evaluated by psychologist. Patient is requesting exemption letter for [employer] for [employer] benefits as she feels that with her current mental health she can not work. Juan C Lopez APRN.DAKOTA DUNCANN Observed: 03/02/2024 12:00 AM Status: COMPLETED Source: [facility] CINTHYA BONE ([id number]) 1970 F NFR Date Time Provider Department 03/02/24 [facility]ILLANUEVA [facility] During your visit today, we recorded the following information about you: Doris Villanueva PA-C 03/02/2024 7:58 AM Signed Xray shows arthritic changes in thoracic back. Moderate to severe. Continue with Physical Therapy. May need to see pain specialist or back specialist in future if not improving. HECTOR Quesada Danielle, APRN.COMMERCIAL CRABBER 03/05/2024 10:05 AM Signed Please let patient know I will not fill out paperwork that says she is unable to work due to her mental state. Patient has not been seen since September 2023 and at that time stated she was feeling better and felt she was stable at that time. Maggy Salcedo, RN 03/05/2024 10:14 AM Signed Pt called and is notified of both providers results and instructions. Pt voices understanding. Pt scheduled with Juan C Lopez NP 03/06/24 to go over mental status and paperwork. Maggy Salcedo RN Allergies As of Date: 03/02/2024 Noted Allergy Reaction CATS 2011 7 - Swelling Comments: rash Date Reviewed: 02/28/2024 Reviewed by: Dakota Serrano LPN - Fully Assessed Reason for Visit: Results [95] Prescriptions as of 03/05/2024 - cyclobenzaprine (FLEXERIL) 10 mg tablet Take 1 tablet by mouth three times a day as needed for muscle spasm. - rOPINIRole (REQUIP) 0.5 mg tablet Take one tab 30-45 mi prior to bed for a wee then go to taking two before bed. - buPROPion XL (WELLBUTRIN XL) 300 mg 24 hr tablet Take 1 tablet by mouth once daily. - celecoxib (CELEBREX) 200 mg capsule Take 1 capsule by mouth once daily. - montelukast (SINGULAIR) 10 mg tablet Take 1 tablet by mouth daily at bedtime. - cyanocobalamin (VITAMIN B-12) 1,000 mcg tab Take 1,000 mcg by mouth once daily. - cholecalciferol (VITAMIN D-3) 400 unit tab Take 400 Units by mouth once daily. - metFORMIN ER (GLUCOPHAGE XR) 500 mg 24 hr tablet Take 2 tablets by mouth daily with dinner. - mometasone-formoterol (DULERA) 200-5 mcg/actuation inhaler Inhale 2 Puffs as instructed two times a day. - loratadine (CLARITIN) 10 mg tablet Take 1 tablet by mouth once daily as needed. FOR ALLERGY SYMPTOMS - DULoxetine (CYMBALTA) 20 mg capsule Take 1 capsule by mouth once daily. - albuterol HFA (PROVENTIL HFA, VENTOLIN HFA) 90 mcg/actuation inhaler INHALE 2 PUFFS BY MOUTH EVERY 6 HOURS NEEDED FOR SHORTNESS OF BREATH AND WHEEZING - omeprazole (PRILOSEC) 20 mg capsule TAKE TWO CAPSULES BY MOUTH ONCE DAILY BEFORE BREAKFAST - Nebulizer Accessories kit Provide 1 kit. - albuterol (PROVENTIL) 2.5 mg /3 mL (0.083 %) nebulizer solution Use 3 mL via nebulizer every 4 hours as needed for wheezing/shortness of breath. Use over 5-15minutes. - fluticasone (FLONASE) 50 mcg/actuation nasal spray Use 1 [place] in each nostril once daily. - promethazine (PHENERGAN) 25 mg tablet Take 1 tablet by mouth every 6 hours as needed. - ProAir RespiClick 90 mcg/actuation breath activated (albuterol sulfate) Inhale 2 Puffs as instructed every 6 hours as needed. Problem List As Of Date 03/02/2024 Noted Resolved Shortness of breath [R06.02] 01/13/2011 Pneumonia, organism unspecified [J18.9] 07/15/2006 01/13/2011 Acute respiratory failure [J96.00] 07/15/2006 01/13/2011 ACUTE URI NOS [J06.9] 08/07/2007 09/10/2008 Gastroesophageal reflux disease without esophag*09/10/2008 Allergic rhinitis [J30.9] 09/10/2008 Moderate persistent asthma without complication*12/11/2008 Environmental allergies [Z91.09] Obesity, Class III, BMI >= 40 (morbid obesity) *12/03/2016 Irritable mood [R45.4] 03/04/2018 Post menopausal syndrome [N95.1] 03/04/2018 Tonsil asymmetry [J35.8] 03/04/2018 Encounter for screening for diabetes mellitus [*03/04/2018 Well adult exam [Z00.00] 09/01/2018 Medication management [Z79.899] 09/01/2018 Arthritis of knee [M17.10] 10/30/2020 Restless leg syndrome [G25.81] 10/30/2020 COVID-19 virus infection [U07.1] 10/14/2021 Fatty liver [K76.0] 01/04/2022 Liver cyst [K76.89] 01/08/2022 Situational depression [F43.21] 09/28/2022 DRE (obstructive sleep apnea) [G47.33] 11/01/2023 Class 3 severe obesity with serious comorbidity*12/21/2023 Hyperinsulinemia [E16.1] 12/21/2023 Encounter Status:Closed by MAGGY SALCEDO on 03/05/24 XR THORACIC 3V AP/LAT/SWIMMERS Observed: 02/28/2024 10:20 AM Status: F Source: [facility] * * *Final Report* * * DATE OF EXAM: Feb 28 2024 10:20AM WOX [id number] - XR THORACIC 3V AP/LAT/SWIMMERS / PROCEDURE REASON: Acute right-sided thoracic back pain * * * * Physician Interpretation * * * * EXAMINATION / TECHNIQUE: XR THORACIC 3V AP/LAT/SWIMMERS HISTORY: pain for a month below the right scapula no inj Acute right-sided thoracic back pain COMPARISON: Chest radiographs dated 03/03/2017. RESULT: No thoracic compression fracture is identified. Sagittal alignment is maintained. There is moderate to severe multilevel degenerative disc disease. IMPRESSION: No thoracic compression fracture. Multilevel degenerative disc disease. Animal Care Worker: PSCArsenio Transcribe Date/Time: Mar 01 2024 7:38P Dictated by : ANDRES AWAN MD This examination was interpreted and the report reviewed and electronically signed by: ANDRES AWAN MD on Mar 01 2024 7:38PM EST [id number] PROGRESS Observed: 02/28/2024 10:10 AM Status: COMPLETED Source: [facility] HNO ID: [id number] Author: ALEXA MUNGUIA RT(R) Service: Radiology Author Type: Technologist Type: Progress Notes Filed: 02/28/2024 10:20 Note Text: Radiology Service Progress Note PATIENT NAME: Cinthya Bone DATE OF SERVICE: February 28, 2024 TIME: 10:12 AM PATIENT IDENTITY VERIFICATION COMPLETED USING TWO (2) IDENTIFIERS: Name and Date of confirmed by patient verbally. FALL SCREENING: Has the patient had 2 falls in the last year or 1 fall with injury or currently using an Ambulatory Assistive Device (Walker, Cane, Wheelchair, Crutches, etc.)? No PATIENT GENDER DATA: Female. status: : No status: NO. PATIENT RELEVANT IMPLANT DATA REVIEWED: Not Applicable PATIENT PRESENTS WITH AN IMPLANTABLE OR ATTACHED MATERIALS MANAGEMENT SUPERVISOR: No RADIOLOGY DEPARTMENT: General X-ray: Exam(s) Completed: Spine X-Ray(s): Thoracic PERIPHERAL IV DATA: Not applicable SIGNED BY: RT Srinivasan(R) February 28, 2024 10:12 AM CNOV Observed: 02/28/2024 9:40 AM Status: COMPLETED Source: [facility] Office Visit ([facility]) CINTHYA BONE ([id number]) 1970 F NFR Date Time Provider Department 02/28/24 9:40 AM [facility] During your visit today, we recorded the following information about you: Temperature Pulse Respiration Blood pressure 98 degrees 80/minute 18/minute 154/79 Weight 140.6 kg Doris Villanueva PA-C 02/28/2024 12:39 PM Signed Chief Complaint Patient presents with: Derm Problem: Has area in middle of back that is bothering her and bilateral leg pain HPI Cinthya Bone is a 53 year old female who presents here today for Above Complaints.. Patient reports mid back pain for the past month. Reports worse with movement. No injury that she can recall. No urinary symptoms. Past medical history, appointments, medications, allergies reviewed. Previous Medical History PAST MEDICAL HISTORY Diagnosis Date Allergic rhinitis, cause unspecified 09/10/2008 Arthritis Arthritis of knee 10/30/2020 Asthma Benign neoplasm of left breast 2018 COVID-19 virus infection 10/14/2021 10/14/2021 Environmental allergies Never formally tested. Sneezes, itches around cats. Excessive or frequent menstruation Heavy periods Fatty liver 01/04/2022 Noted on US 12/2021 Gastroesophageal reflux disease without esophagitis 09/10/2008 Hemorrhage of gastrointestinal tract, unspecified 05/10/2014 Irregular menstrual cycle Irregular periods Liver cyst 01/08/2022 MRI: 12/2021 Mild persistent asthma without complication 12/11/2008 Obesity, Class III, BMI >= 40 (morbid obesity) E66.01 12/03/2016 Pneumonia 2008 Required intubation Restless leg syndrome 10/30/2020 Shortness of breath 2007 Was on a ventolator with pneumonia Situational depression 09/28/2022 Tonsil asymmetry 03/04/2018 Lt at 2+ Rt normal. chronic Well adult exam 09/01/2018 Done 10/30/2020 Previous Surgical History PAST SURGICAL HISTORY Procedure Laterality Date COLONOSCOPY FLX DX W/COLLJ SPEC WHEN PFRMD 05/10/2014 Colonoscopy EXC BREAST LES PREOP PLMT RAD MARKER OPEN 1 LES Left 01/05/2019 HYSTEROSCOPY, DIAGNOSTIC (SEPARATE 06/2010 Hysteroscopy AND curettage INCISE FINGER TENDON SHEATH Right 06/04/2020 Right ring trigger finger LIG/TRNSXJ FLP TUBE ABDL/VAG APPR UNI/BI Tubal ligation VAGINAL HYSTERECTOMY UTERUS 250 GM/< 12/08/2010 TVH Family History FAMILY HISTORY Problem Relation Age of Onset Obesity Mother Cancer Father Stomach Heart Attack Brother 52 Obesity Brother Hypertension Brother Obesity Maternal Grandmother Obesity Maternal Grandfather Heart Paternal Grandmother COPD Paternal Grandmother Emphysema. Smoker. Obesity Paternal Grandmother Obesity Paternal Grandfather Asthma Son Breast Cancer Paternal Aunt Diabetes Paternal Aunt Patient Allergies ALLERGIES Allergen Reactions Cats Swelling rash Current Medications Current Outpatient Medications on File Prior to Visit Medication Sig rOPINIRole (REQUIP) 0.5 mg tablet Take one tab 30-45 mi prior to bed for a wee then go to taking two before bed. buPROPion XL (WELLBUTRIN XL) 300 mg 24 hr tablet Take 1 tablet by mouth once daily. celecoxib (CELEBREX) 200 mg capsule Take 1 capsule by mouth once daily. montelukast (SINGULAIR) 10 mg tablet Take 1 tablet by mouth daily at bedtime. cyanocobalamin (VITAMIN B-12) 1,000 mcg tab Take 1,000 mcg by mouth once daily. cholecalciferol (VITAMIN D-3) 400 unit tab Take 400 Units by mouth once daily. metFORMIN ER (GLUCOPHAGE XR) 500 mg 24 hr tablet Take 2 tablets by mouth daily with dinner. mometasone-formoterol (DULERA) 200-5 mcg/actuation inhaler Inhale 2 Puffs as instructed two times a day. loratadine (CLARITIN) 10 mg tablet Take 1 tablet by mouth once daily as needed. FOR ALLERGY SYMPTOMS DULoxetine (CYMBALTA) 20 mg capsule Take 1 capsule by mouth once daily. albuterol HFA (PROVENTIL HFA, VENTOLIN HFA) 90 mcg/actuation inhaler INHALE 2 PUFFS BY MOUTH EVERY 6 HOURS NEEDED FOR SHORTNESS OF BREATH AND WHEEZING omeprazole (PRILOSEC) 20 mg capsule TAKE TWO CAPSULES BY MOUTH ONCE DAILY BEFORE BREAKFAST Nebulizer Accessories kit Provide 1 kit. albuterol (PROVENTIL) 2.5 mg /3 mL (0.083 %) nebulizer solution Use 3 mL via nebulizer every 4 hours as needed for wheezing/shortness of breath. Use over 5-15minutes. fluticasone (FLONASE) 50 mcg/actuation nasal spray Use 1 [place] in each nostril once daily. promethazine (PHENERGAN) 25 mg tablet Take 1 tablet by mouth every 6 hours as needed. ProAir RespiClick 90 mcg/actuation breath activated (albuterol sulfate) Inhale 2 Puffs as instructed every 6 hours as needed. predniSONE (DELTASONE) 10 mg tablet Take 4 tabs daily for 3 days, then 2 tabs daily for 3 days, then 1 tab daily for 3 days with food. (Patient not taking: Reported on 01/03/2024) No current facility-administered medications on file prior to visit. Social History Social History Tobacco Use Smoking status: Never Smokeless tobacco: Never Tobacco comments: ETS exposure: Spouse and son smoke in home. Other family visitors smoke. Parents and Grandparents smoked in childhood home. Vaping Use Vaping status: Never Used Substance Use Topics Alcohol use: Not Currently Comment: social Drug use: Not Currently Review of Symptoms REVIEW OF SYSTEMS See hpi EXAM: BP 158/100 (BP Site: Right Arm, BP Position: Sitting, BP Cuff Size: Large Adult) Pulse 71 Temp 36.7 ?C (98 ?F) Resp 18 Wt (!) 140.6 kg (310 lb) LMP 12/01/2010 (Exact Date) SpO2 97% BMI 53.78 kg/m? BP 154/79 (BP Site: Right Arm, BP Position: Sitting, BP Cuff Size: Large Adult) Pulse 80 Temp 36.7 ?C (98 ?F) Resp 18 Wt (!) 140.6 kg (310 lb) LMP 12/01/2010 (Exact Date) SpO2 97% BMI 53.78 kg/m? General Appearance: Well appearing, alert, in no acute distress, well-hydrated, well nourished. and Morbidly obese. Musculoskeletal: +pain to right thoracic back to palp. FROM with stretching pain. NVI. Health Maintenance List Anxiety Screening Never done Shingrix Vaccine(1 of 2) Never done DTaP,Tdap,Td Vaccine(3 - Td or Tdap) due on 03/11/2023 Covid-19 Vaccine(3 - season) due on 10/23/2023 Colorectal Cancer Screening due on 05/10/2024 Mammogram Screening due on 08/07/2024 Annual PCP Team Chronic Disease Visit due on 01/02/2025 Diabetes Screening due on 11/06/2026 Lipid Screening due on 11/06/2028 Hepatitis B Vaccine Completed Spirometry Completed Influenza Vaccine Completed Hepatitis C Screening Completed Pneumococcal Vaccine: 50+ Completed Cervical Cancer Screening Discontinued HIV Screening Discontinued Data reviewed ASSESSMENT/PLAN: 1. Acute right-sided thoracic back pain - ICD9: 724.1, ICD10: M54.6 Start Physical Therapy Muscle relaxer prn Xray today Follow up prn - CONSULT TO PHYSICAL THERAPY - XR THORACIC GENERAL 3V AP/LAT/SWIMMERS Follow up for BP check Doris Villanueva PA-C Allergies As of Date: 02/28/2024 Noted Allergy Reaction CATS 2011 7 - Swelling Comments: rash Date Reviewed: 02/28/2024 Reviewed by: Dakota Serrano LPN - Fully Assessed Reason for Visit: Derm Problem [33] Cmt: Has area in middle of back that is bothering her and bilateral leg pain Primary Visit Diagnosis:Acute right-sided thoracic back pain [M54.6] Order(s):cyclobenzaprine (FLEXERIL) 10 mg tabletTake 1 tablet by mouth three times a day as needed for muscle spasm.Disp: 30 tabletRfl: 0 CONSULT TO PHYSICAL THERAPY [9032] Order #: [id number]: 1 FUTURE XR THORACIC GENERAL 3V AP/LAT/SWIMMERS [[id number]] Order #: [id number] FUTURE Prescriptions as of 02/28/2024 - cyclobenzaprine (FLEXERIL) 10 mg tablet Take 1 tablet by mouth three times a day as needed for muscle spasm. - rOPINIRole (REQUIP) 0.5 mg tablet Take one tab 30-45 mi prior to bed for a wee then go to taking two before bed. - buPROPion XL (WELLBUTRIN XL) 300 mg 24 hr tablet Take 1 tablet by mouth once daily. - celecoxib (CELEBREX) 200 mg capsule Take 1 capsule by mouth once daily. - montelukast (SINGULAIR) 10 mg tablet Take 1 tablet by mouth daily at bedtime. - cyanocobalamin (VITAMIN B-12) 1,000 mcg tab Take 1,000 mcg by mouth once daily. - cholecalciferol (VITAMIN D-3) 400 unit tab Take 400 Units by mouth once daily. - metFORMIN ER (GLUCOPHAGE XR) 500 mg 24 hr tablet Take 2 tablets by mouth daily with dinner. - mometasone-formoterol (DULERA) 200-5 mcg/actuation inhaler Inhale 2 Puffs as instructed two times a day. - loratadine (CLARITIN) 10 mg tablet Take 1 tablet by mouth once daily as needed. FOR ALLERGY SYMPTOMS - DULoxetine (CYMBALTA) 20 mg capsule Take 1 capsule by mouth once daily. - albuterol HFA (PROVENTIL HFA, VENTOLIN HFA) 90 mcg/actuation inhaler INHALE 2 PUFFS BY MOUTH EVERY 6 HOURS NEEDED FOR SHORTNESS OF BREATH AND WHEEZING - omeprazole (PRILOSEC) 20 mg capsule TAKE TWO CAPSULES BY MOUTH ONCE DAILY BEFORE BREAKFAST - Nebulizer Accessories kit Provide 1 kit. - albuterol (PROVENTIL) 2.5 mg /3 mL (0.083 %) nebulizer solution Use 3 mL via nebulizer every 4 hours as needed for wheezing/shortness of breath. Use over 5-15minutes. - fluticasone (FLONASE) 50 mcg/actuation nasal spray Use 1 [place] in each nostril once daily. - promethazine (PHENERGAN) 25 mg tablet Take 1 tablet by mouth every 6 hours as needed. - ProAir RespiClick 90 mcg/actuation breath activated (albuterol sulfate) Inhale 2 Puffs as instructed every 6 hours as needed. Problem List As Of Date 02/28/2024 Noted Resolved Shortness of breath [R06.02] 01/13/2011 Pneumonia, organism unspecified [J18.9] 07/15/2006 01/13/2011 Acute respiratory failure [J96.00] 07/15/2006 01/13/2011 ACUTE URI NOS [J06.9] 08/07/2007 09/10/2008 Gastroesophageal reflux disease without esophag*09/10/2008 Allergic rhinitis [J30.9] 09/10/2008 Moderate persistent asthma without complication*12/11/2008 Environmental allergies [Z91.09] Obesity, Class III, BMI >= 40 (morbid obesity) *12/03/2016 Irritable mood [R45.4] 03/04/2018 Post menopausal syndrome [N95.1] 03/04/2018 Tonsil asymmetry [J35.8] 03/04/2018 Encounter for screening for diabetes mellitus [*03/04/2018 Well adult exam [Z00.00] 09/01/2018 Medication management [Z79.899] 09/01/2018 Arthritis of knee [M17.10] 10/30/2020 Restless leg syndrome [G25.81] 10/30/2020 COVID-19 virus infection [U07.1] 10/14/2021 Fatty liver [K76.0] 01/04/2022 Liver cyst [K76.89] 01/08/2022 Situational depression [F43.21] 09/28/2022 DRE (obstructive sleep apnea) [G47.33] 11/01/2023 Class 3 severe obesity with serious comorbidity*12/21/2023 Hyperinsulinemia [E16.1] 12/21/2023 Prescriptions ordered this encounter Disp Refills Start End CYCLOBENZAPRINE 10 MG TABLET 30 t* 0 02/28/2024 Route: ORAL Sig: Take 1 tablet by mouth three times a day as needed for muscle spasm. Medications Discontinued During This Encounter Prescriptions - predniSONE (DELTASONE) 10 mg tablet (Discontinued) Reported on 01/03/2024 Encounter Status:Closed by DORIS SOLANO on 02/28/24 PROGRESS Observed: 02/28/2024 9:39 AM Status: COMPLETED Source: [facility] HNO ID: [id number] Author: DORIS VILLANUEVA PA-C Service: ? Author Type: Physician Cyber Legal Advisor Type: Progress Notes Filed: 02/28/2024 12:39 Note Text: Chief Complaint Patient presents with: Derm Problem: Has area in middle of back that is bothering her and bilateral leg pain HPI Cinthya Bone is a 53 year old female who presents here today for Above Complaints.. Patient reports mid back pain for the past month. Reports worse with movement. No injury that she can recall. No urinary symptoms. Past medical history, appointments, medications, allergies reviewed. Previous Medical History PAST MEDICAL HISTORY Diagnosis Date Allergic rhinitis, cause unspecified 09/10/2008 Arthritis Arthritis of knee 10/30/2020 Asthma Benign neoplasm of left breast 2018 COVID-19 virus infection 10/14/2021 10/14/2021 Environmental allergies Never formally tested. Sneezes, itches around cats. Excessive or frequent menstruation Heavy periods Fatty liver 01/04/2022 Noted on US 12/2021 Gastroesophageal reflux disease without esophagitis 09/10/2008 Hemorrhage of gastrointestinal tract, unspecified 05/10/2014 Irregular menstrual cycle Irregular periods Liver cyst 01/08/2022 MRI: 12/2021 Mild persistent asthma without complication 12/11/2008 Obesity, Class III, BMI >= 40 (morbid obesity) E66.01 12/03/2016 Pneumonia 2008 Required intubation Restless leg syndrome 10/30/2020 Shortness of breath 2007 Was on a ventolator with pneumonia Situational depression 09/28/2022 Tonsil asymmetry 03/04/2018 Lt at 2+ Rt normal. chronic Well adult exam 09/01/2018 Done 10/30/2020 Previous Surgical History PAST SURGICAL HISTORY Procedure Laterality Date COLONOSCOPY FLX DX W/COLLJ SPEC WHEN PFRMD 05/10/2014 Colonoscopy EXC BREAST LES PREOP PLMT RAD MARKER OPEN 1 LES Left 01/05/2019 HYSTEROSCOPY, DIAGNOSTIC (SEPARATE 06/2010 Hysteroscopy AND curettage INCISE FINGER TENDON SHEATH Right 06/04/2020 Right ring trigger finger LIG/TRNSXJ FLP TUBE ABDL/VAG APPR UNI/BI Tubal ligation VAGINAL HYSTERECTOMY UTERUS 250 GM/< 12/08/2010 TVH Family History FAMILY HISTORY Problem Relation Age of Onset Obesity Mother Cancer Father Stomach Heart Attack Brother 52 Obesity Brother Hypertension Brother Obesity Maternal Grandmother Obesity Maternal Grandfather Heart Paternal Grandmother COPD Paternal Grandmother Emphysema. Smoker. Obesity Paternal Grandmother Obesity Paternal Grandfather Asthma Son Breast Cancer Paternal Aunt Diabetes Paternal Aunt Patient Allergies ALLERGIES Allergen Reactions Cats Swelling rash Current Medications Current Outpatient Medications on File Prior to Visit Medication Sig rOPINIRole (REQUIP) 0.5 mg tablet Take one tab 30-45 mi prior to bed for a wee then go to taking two before bed. buPROPion XL (WELLBUTRIN XL) 300 mg 24 hr tablet Take 1 tablet by mouth once daily. celecoxib (CELEBREX) 200 mg capsule Take 1 capsule by mouth once daily. montelukast (SINGULAIR) 10 mg tablet Take 1 tablet by mouth daily at bedtime. cyanocobalamin (VITAMIN B-12) 1,000 mcg tab Take 1,000 mcg by mouth once daily. cholecalciferol (VITAMIN D-3) 400 unit tab Take 400 Units by mouth once daily. metFORMIN ER (GLUCOPHAGE XR) 500 mg 24 hr tablet Take 2 tablets by mouth daily with dinner. mometasone-formoterol (DULERA) 200-5 mcg/actuation inhaler Inhale 2 Puffs as instructed two times a day. loratadine (CLARITIN) 10 mg tablet Take 1 tablet by mouth once daily as needed. FOR ALLERGY SYMPTOMS DULoxetine (CYMBALTA) 20 mg capsule Take 1 capsule by mouth once daily. albuterol HFA (PROVENTIL HFA, VENTOLIN HFA) 90 mcg/actuation inhaler INHALE 2 PUFFS BY MOUTH EVERY 6 HOURS NEEDED FOR SHORTNESS OF BREATH AND WHEEZING omeprazole (PRILOSEC) 20 mg capsule TAKE TWO CAPSULES BY MOUTH ONCE DAILY BEFORE BREAKFAST Nebulizer Accessories kit Provide 1 kit. albuterol (PROVENTIL) 2.5 mg /3 mL (0.083 %) nebulizer solution Use 3 mL via nebulizer every 4 hours as needed for wheezing/shortness of breath. Use over 5-15minutes. fluticasone (FLONASE) 50 mcg/actuation nasal spray Use 1 [place] in each nostril once daily. promethazine (PHENERGAN) 25 mg tablet Take 1 tablet by mouth every 6 hours as needed. ProAir RespiClick 90 mcg/actuation breath activated (albuterol sulfate) Inhale 2 Puffs as instructed every 6 hours as needed. predniSONE (DELTASONE) 10 mg tablet Take 4 tabs daily for 3 days, then 2 tabs daily for 3 days, then 1 tab daily for 3 days with food. (Patient not taking: Reported on 01/03/2024) No current facility-administered medications on file prior to visit. Social History Social History Tobacco Use Smoking status: Never Smokeless tobacco: Never Tobacco comments: ETS exposure: Spouse and son smoke in home. Other family visitors smoke. Parents and Grandparents smoked in childhood home. Vaping Use Vaping status: Never Used Substance Use Topics Alcohol use: Not Currently Comment: social Drug use: Not Currently Review of Symptoms REVIEW OF SYSTEMS See hpi EXAM: BP 158/100 (BP Site: Right Arm, BP Position: Sitting, BP Cuff Size: Large Adult) Pulse 71 Temp 36.7 ?C (98 ?F) Resp 18 Wt (!) 140.6 kg (310 lb) LMP 12/01/2010 (Exact Date) SpO2 97% BMI 53.78 kg/m? BP 154/79 (BP Site: Right Arm, BP Position: Sitting, BP Cuff Size: Large Adult) Pulse 80 Temp 36.7 ?C (98 ?F) Resp 18 Wt (!) 140.6 kg (310 lb) LMP 12/01/2010 (Exact Date) SpO2 97% BMI 53.78 kg/m? General Appearance: Well appearing, alert, in no acute distress, well-hydrated, well nourished. and Morbidly obese. Musculoskeletal: +pain to right thoracic back to palp. FROM with stretching pain. NVI. Health Maintenance List Anxiety Screening Never done Shingrix Vaccine(1 of 2) Never done DTaP,Tdap,Td Vaccine(3 - Td or Tdap) due on 03/11/2023 Covid-19 Vaccine( season) due on 10/23/2023 Colorectal Cancer Screening due on 05/10/2024 Mammogram Screening due on 08/07/2024 Annual PCP Team Chronic Disease Visit due on 01/02/2025 Diabetes Screening due on 11/06/2026 Lipid Screening due on 11/06/2028 Hepatitis B Vaccine Completed Spirometry Completed Influenza Vaccine Completed Hepatitis C Screening Completed Pneumococcal Vaccine: 50+ Completed Cervical Cancer Screening Discontinued HIV Screening Discontinued Data reviewed ASSESSMENT/PLAN: 1. Acute right-sided thoracic back pain - ICD9: 724.1, ICD10: M54.6 Start Physical Therapy Muscle relaxer prn Xray today Follow up prn - CONSULT TO PHYSICAL THERAPY - XR THORACIC GENERAL 3V AP/LAT/SWIMMERS Follow up for BP check HECTOR Quesada Observed: 02/28/2024 12:00 AM Status: COMPLETED Source: [facility] Telephone ([facility]) BONECINTHYA LOPEZ ([id number]) 1970 F NFR Date Time Provider Department 02/28/24 MINA MAHER During your visit today, we recorded the following information about you: Lillie Browning MA 02/28/2024 10:40 AM Signed Patient phones to request a letter for [employer] that states why she is unable to work. She would like a phone call when the letter is complete. ROCK Gay Amy M, MA 02/28/2024 12:21 PM Signed Patient last seen 11/07/2023 for chronic pain of bilateral knees and osteoarthritis of bilateral knees. Does this warrant a letter to not work? Sandie Hull MA 03/01/2024 10:59 AM Signed Patient calling and asking if this has been addressed? She is scheduled for an appointment on 03/12. Mina Maher MD 03/01/2024 8:38 PM Signed I don't know anything about her work status or environment. She has chronic and significant knee OA. If she needs disability paperwork done, that should be addressed by her primary care doctor. She has stable, non-operative knee arthritis, thus our surgical office typically does not manage non-operative disability. Sandie Hull MA 03/05/2024 12:09 PM Signed Left message for patient to call the office Brenda James LPN 03/05/2024 1:00 PM Signed Patient states that [facility] is requesting documentation of her arthritis limiting her ability to stand for long periods. 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 ANUJ Patel Amy M, MA 03/08/2024 3:40 PM Signed I called and spoke with the patient. Message from Dr. Maher given. She has appointment scheduled in the office on 03/12/2024 and will discuss further with him at that time. Allergies As of Date: 02/28/2024 Noted Allergy Reaction CATS 2011 7 - Swelling Comments: rash Date Reviewed: 02/28/2024 Reviewed by: Dakota Serrano LPN - Fully Assessed Reason for Visit: Patient Update [1234] Cmt: letter Prescriptions as of 03/08/2024 - omeprazole (PRILOSEC) 20 mg capsule TAKE TWO CAPSULES BY MOUTH ONCE DAILY BEFORE BREAKFAST - cyclobenzaprine (FLEXERIL) 10 mg tablet Take 1 tablet by mouth three times a day as needed for muscle spasm. - rOPINIRole (REQUIP) 0.5 mg tablet Take one tab 30-45 mi prior to bed for a wee then go to taking two before bed. - buPROPion XL (WELLBUTRIN XL) 300 mg 24 hr tablet Take 1 tablet by mouth once daily. - celecoxib (CELEBREX) 200 mg capsule Take 1 capsule by mouth once daily. - montelukast (SINGULAIR) 10 mg tablet Take 1 tablet by mouth daily at bedtime. - cyanocobalamin (VITAMIN B-12) 1,000 mcg tab Take 1,000 mcg by mouth once daily. - cholecalciferol (VITAMIN D-3) 400 unit tab Take 400 Units by mouth once daily. - metFORMIN ER (GLUCOPHAGE XR) 500 mg 24 hr tablet Take 2 tablets by mouth daily with dinner. - mometasone-formoterol (DULERA) 200-5 mcg/actuation inhaler Inhale 2 Puffs as instructed two times a day. - loratadine (CLARITIN) 10 mg tablet Take 1 tablet by mouth once daily as needed. FOR ALLERGY SYMPTOMS - DULoxetine (CYMBALTA) 20 mg capsule Take 1 capsule by mouth once daily. - albuterol HFA (PROVENTIL HFA, VENTOLIN HFA) 90 mcg/actuation inhaler INHALE 2 PUFFS BY MOUTH EVERY 6 HOURS NEEDED FOR SHORTNESS OF BREATH AND WHEEZING - Nebulizer Accessories kit Provide 1 kit. - albuterol (PROVENTIL) 2.5 mg /3 mL (0.083 %) nebulizer solution Use 3 mL via nebulizer every 4 hours as needed for wheezing/shortness of breath. Use over 5-15minutes. - fluticasone (FLONASE) 50 mcg/actuation nasal spray Use 1 [place] in each nostril once daily. - promethazine (PHENERGAN) 25 mg tablet Take 1 tablet by mouth every 6 hours as needed. - ProAir RespiClick 90 mcg/actuation breath activated (albuterol sulfate) Inhale 2 Puffs as instructed every 6 hours as needed. Problem List As Of Date 02/28/2024 Noted Resolved Shortness of breath [R06.02] 01/13/2011 Pneumonia, organism unspecified [J18.9] 07/15/2006 01/13/2011 Acute respiratory failure [J96.00] 07/15/2006 01/13/2011 ACUTE URI NOS [J06.9] 08/07/2007 09/10/2008 Gastroesophageal reflux disease without esophag*09/10/2008 Allergic rhinitis [J30.9] 09/10/2008 Moderate persistent asthma without complication*12/11/2008 Environmental allergies [Z91.09] Obesity, Class III, BMI >= 40 (morbid obesity) *12/03/2016 Irritable mood [R45.4] 03/04/2018 Post menopausal syndrome [N95.1] 03/04/2018 Tonsil asymmetry [J35.8] 03/04/2018 Encounter for screening for diabetes mellitus [*03/04/2018 Well adult exam [Z00.00] 09/01/2018 Medication management [Z79.899] 09/01/2018 Arthritis of knee [M17.10] 10/30/2020 Restless leg syndrome [G25.81] 10/30/2020 COVID-19 virus infection [U07.1] 10/14/2021 Fatty liver [K76.0] 01/04/2022 Liver cyst [K76.89] 01/08/2022 Situational depression [F43.21] 09/28/2022 DRE (obstructive sleep apnea) [G47.33] 11/01/2023 Class 3 severe obesity with serious comorbidity*12/21/2023 Hyperinsulinemia [E16.1] 12/21/2023 Encounter Status:Closed by LILLIE BROWNING on 03/02/24 CNOV Observed: 01/03/2024 9:20 AM Status: COMPLETED Source: [facility] CINTHYA BONE ([id number]) 1970 F NFR Date Time Provider Department 01/03/24 9:20 AM JUAN C LOPEZ During your visit today, we recorded the following information about you: Pulse Respiration Blood pressure Weight 70/minute 16/minute 126/82 137 kg Juan C Lopez, CRIMINAL RESEARCHER.COMMERCIAL CRABBER 01/03/2024 9:27 AM Signed Chief Complaint Patient presents with: Rash: X 12 days, with itching, on back stomach, legs. Not improving HPI Cinthya Bone is a 53 year old female who presents here today for Above Complaints.. Patient presents for rash for 12 days. Patient was seen in on 12/23 and treated with prednisone with no improvement. Patient reports rash continues to spread across her back, belly and legs. She is the only person in her home that has the rash. Past medical history, appointments, medications, allergies reviewed. Previous Medical History PAST MEDICAL HISTORY Diagnosis Date Allergic rhinitis, cause unspecified 09/10/2008 Arthritis Arthritis of knee 10/30/2020 Asthma Benign neoplasm of left breast 2018 COVID-19 virus infection 10/14/2021 10/14/2021 Environmental allergies Never formally tested. Sneezes, itches around cats. Excessive or frequent menstruation Heavy periods Fatty liver 01/04/2022 Noted on US 12/2021 Gastroesophageal reflux disease without esophagitis 09/10/2008 Hemorrhage of gastrointestinal tract, unspecified 05/10/2014 Irregular menstrual cycle Irregular periods Liver cyst 01/08/2022 MRI: 12/2021 Mild persistent asthma without complication 12/11/2008 Obesity, Class III, BMI >= 40 (morbid obesity) E66.01 12/03/2016 Pneumonia 2008 Required intubation Restless leg syndrome 10/30/2020 Shortness of breath 2007 Was on a ventolator with pneumonia Situational depression 09/28/2022 Tonsil asymmetry 03/04/2018 Lt at 2+ Rt normal. chronic Well adult exam 09/01/2018 Done 10/30/2020 Previous Surgical History PAST SURGICAL HISTORY Procedure Laterality Date COLONOSCOPY FLX DX W/COLLJ SPEC WHEN PFRMD 05/10/2014 Colonoscopy EXC BREAST LES PREOP PLMT RAD MARKER OPEN 1 LES Left 01/05/2019 HYSTEROSCOPY, DIAGNOSTIC (SEPARATE 06/2010 Hysteroscopy AND curettage INCISE FINGER TENDON SHEATH Right 06/04/2020 Right ring trigger finger LIG/TRNSXJ FLP TUBE ABDL/VAG APPR UNI/BI Tubal ligation VAGINAL HYSTERECTOMY UTERUS 250 GM/< 12/08/2010 [facility] Family History FAMILY HISTORY Problem Relation Age of Onset Obesity Mother Cancer Father Stomach Heart Attack Brother 52 Obesity Brother Hypertension Brother Obesity Maternal Grandmother Obesity Maternal Grandfather Heart Paternal Grandmother COPD Paternal Grandmother Emphysema. Smoker. Obesity Paternal Grandmother Obesity Paternal Grandfather Asthma Son Breast Cancer Paternal Aunt Diabetes Paternal Aunt Patient Allergies ALLERGIES Allergen Reactions Cats Swelling rash Current Medications Current Outpatient Medications on File Prior to Visit Medication Sig cyanocobalamin (VITAMIN B-12) 1,000 mcg tab Take 1,000 mcg by mouth once daily. cholecalciferol (VITAMIN D-3) 400 unit tab Take 400 Units by mouth once daily. semaglutide, weight loss, (WEGOVY) 0.25 mg/0.5 mL pen injector Inject 0.5 mL subcutaneously one time a week for 28 days. metFORMIN ER (GLUCOPHAGE XR) 500 mg 24 hr tablet Take 2 tablets by mouth daily with dinner. mometasone-formoterol (DULERA) 200-5 mcg/actuation inhaler Inhale 2 Puffs as instructed two times a day. loratadine (CLARITIN) 10 mg tablet Take 1 tablet by mouth once daily as needed. FOR ALLERGY SYMPTOMS montelukast (SINGULAIR) 10 mg tablet take 1 tablet by mouth once daily at bedtime DULoxetine (CYMBALTA) 20 mg capsule Take 1 capsule by mouth once daily. albuterol HFA (PROVENTIL HFA, VENTOLIN HFA) 90 mcg/actuation inhaler INHALE 2 PUFFS BY MOUTH EVERY 6 HOURS NEEDED FOR SHORTNESS OF BREATH AND WHEEZING omeprazole (PRILOSEC) 20 mg capsule TAKE TWO CAPSULES BY MOUTH ONCE DAILY BEFORE BREAKFAST buPROPion XL (WELLBUTRIN XL) 300 mg 24 hr tablet Take 1 tablet by mouth once daily. rOPINIRole (REQUIP) 0.5 mg tablet Take one tab 30-45 mi prior to bed for a wee then go to taking two before bed. celecoxib (CELEBREX) 200 mg capsule Take 1 capsule by mouth once daily. Nebulizer Accessories kit Provide 1 kit. albuterol (PROVENTIL) 2.5 mg /3 mL (0.083 %) nebulizer solution Use 3 mL via nebulizer every 4 hours as needed for wheezing/shortness of breath. Use over 5-15minutes. fluticasone (FLONASE) 50 mcg/actuation nasal spray Use 1 [place] in each nostril once daily. promethazine (PHENERGAN) 25 mg tablet Take 1 tablet by mouth every 6 hours as needed. ProAir RespiClick 90 mcg/actuation breath activated (albuterol sulfate) Inhale 2 Puffs as instructed every 6 hours as needed. predniSONE (DELTASONE) 10 mg tablet Take 4 tabs daily for 3 days, then 2 tabs daily for 3 days, then 1 tab daily for 3 days with food. (Patient not taking: Reported on 01/03/2024) No current facility-administered medications on file prior to visit. Social History Social History Tobacco Use Smoking status: Never Smokeless tobacco: Never Tobacco comments: ETS exposure: Spouse and son smoke in home. Other family visitors smoke. Parents and Grandparents smoked in childhood home. Vaping Use Vaping status: Never Used Substance Use Topics Alcohol use: Not Currently Comment: social Drug use: Not Currently Review of Symptoms REVIEW OF SYSTEMS SEE HPI EXAM: BP 126/82 Pulse 70 Resp 16 Wt (!) 137 kg (302 lb) LMP 12/01/2010 (Exact Date) SpO2 98% BMI 52.39 kg/m? General Appearance: Well appearing, alert, in no acute distress, well-hydrated, well nourished.. Skin: Positives: Rash: red scattered scabbed rash to bilateral legs, lower abdomen and back. Health Maintenance List Anxiety Screening Never done Shingrix Vaccine(1 of 2) Never done DTaP,Tdap,Td Vaccine(3 - Td or Tdap) due on 03/11/2023 Covid-19 Vaccine( - 2023- season) due on 10/23/2023 Colorectal Cancer Screening due on 05/10/2024 Mammogram Screening due on 08/07/2024 Annual PCP Team Chronic Disease Visit due on 10/16/2024 Diabetes Screening due on 11/06/2026 Lipid Screening due on 11/06/2028 Hepatitis B Vaccine Completed Spirometry Completed Influenza Vaccine Completed Hepatitis C Screening Completed Pneumococcal Vaccine Completed Cervical Cancer Screening Discontinued HIV Screening Discontinued ASSESSMENT/PLAN: 1. Rash - ICD9: 782.1, ICD10: R21 - TRIAMCINOLONE ACETONIDE 0.1 % TOPICAL CREAM - CONSULT TO DERMATOLOGY Juan C Lopez APRN.[employer] Allergies As of Date: 01/03/2024 Noted Allergy Reaction CATS 2011 7 - Swelling Comments: rash Date Reviewed: 01/03/2024 Reviewed by: Ramona Alexandre LPN - Fully Assessed Reason for Visit: Rash [1087] Cmt: X 12 days, with itching, on back stomach, legs. Not improving Primary Visit Diagnosis:Rash [R21] Order(s):triamcinolone acetonide (KENALOG) 0.1 % creamApply 1 application to affected area three times a day for 14 days. Apply sparingly to area for rash/itching.Disp: 28.4 gRfl: 1 CONSULT TO DERMATOLOGY [9006] Order #: [id number]: 1 FUTURE Prescriptions as of 01/03/2024 - triamcinolone acetonide (KENALOG) 0.1 % cream Apply 1 application to affected area three times a day for 14 days. Apply sparingly to area for rash/itching. - predniSONE (DELTASONE) 10 mg tablet Take 4 tabs daily for 3 days, then 2 tabs daily for 3 days, then 1 tab daily for 3 days with food. - cyanocobalamin (VITAMIN B-12) 1,000 mcg tab Take 1,000 mcg by mouth once daily. - cholecalciferol (VITAMIN D-3) 400 unit tab Take 400 Units by mouth once daily. - semaglutide, weight loss, (WEGOVY) 0.25 mg/0.5 mL pen injector Inject 0.5 mL subcutaneously one time a week for 28 days. - metFORMIN ER (GLUCOPHAGE XR) 500 mg 24 hr tablet Take 2 tablets by mouth daily with dinner. - mometasone-formoterol (DULERA) 200-5 mcg/actuation inhaler Inhale 2 Puffs as instructed two times a day. - loratadine (CLARITIN) 10 mg tablet Take 1 tablet by mouth once daily as needed. FOR ALLERGY SYMPTOMS - montelukast (SINGULAIR) 10 mg tablet take 1 tablet by mouth once daily at bedtime - DULoxetine (CYMBALTA) 20 mg capsule Take 1 capsule by mouth once daily. - albuterol HFA (PROVENTIL HFA, VENTOLIN HFA) 90 mcg/actuation inhaler INHALE 2 PUFFS BY MOUTH EVERY 6 HOURS NEEDED FOR SHORTNESS OF BREATH AND WHEEZING - omeprazole (PRILOSEC) 20 mg capsule TAKE TWO CAPSULES BY MOUTH ONCE DAILY BEFORE BREAKFAST - buPROPion XL (WELLBUTRIN XL) 300 mg 24 hr tablet Take 1 tablet by mouth once daily. - rOPINIRole (REQUIP) 0.5 mg tablet Take one tab 30-45 mi prior to bed for a wee then go to taking two before bed. - celecoxib (CELEBREX) 200 mg capsule Take 1 capsule by mouth once daily. - Nebulizer Accessories kit Provide 1 kit. - albuterol (PROVENTIL) 2.5 mg /3 mL (0.083 %) nebulizer solution Use 3 mL via nebulizer every 4 hours as needed for wheezing/shortness of breath. Use over 5-15minutes. - fluticasone (FLONASE) 50 mcg/actuation nasal spray Use 1 [place] in each nostril once daily. - promethazine (PHENERGAN) 25 mg tablet Take 1 tablet by mouth every 6 hours as needed. - ProAir RespiClick 90 mcg/actuation breath activated (albuterol sulfate) Inhale 2 Puffs as instructed every 6 hours as needed. Problem List As Of Date 01/03/2024 Noted Resolved Shortness of breath [R06.02] 01/13/2011 Pneumonia, organism unspecified [J18.9] 07/15/2006 01/13/2011 Acute respiratory failure [J96.00] 07/15/2006 01/13/2011 ACUTE URI NOS [J06.9] 08/07/2007 09/10/2008 Gastroesophageal reflux disease without esophag*09/10/2008 Allergic rhinitis [J30.9] 09/10/2008 Moderate persistent asthma without complication*12/11/2008 Environmental allergies [Z91.09] Obesity, Class III, BMI >= 40 (morbid obesity) *12/03/2016 Irritable mood [R45.4] 03/04/2018 Post menopausal syndrome [N95.1] 03/04/2018 Tonsil asymmetry [J35.8] 03/04/2018 Encounter for screening for diabetes mellitus [*03/04/2018 Well adult exam [Z00.00] 09/01/2018 Medication management [Z79.899] 09/01/2018 Arthritis of knee [M17.10] 10/30/2020 Restless leg syndrome [G25.81] 10/30/2020 COVID-19 virus infection [U07.1] 10/14/2021 Fatty liver [K76.0] 01/04/2022 Liver cyst [K76.89] 01/08/2022 Situational depression [F43.21] 09/28/2022 DRE (obstructive sleep apnea) [G47.33] 11/01/2023 Class 3 severe obesity with serious comorbidity*12/21/2023 Hyperinsulinemia [E16.1] 12/21/2023 Prescriptions ordered this encounter Disp Refills Start End TRIAMCINOLONE ACETONIDE 0.1 % TOPICA* 28.4* 1 01/03/2024 01/17/2024 Route: TOPICAL Sig: Apply 1 application to affected area three times a day for 14 days. Apply sparingly to area for rash/itching. Disposition: Return if symptoms worsen or fail to improve. Follow-up and Disposition History for Encounter Date Provider Department Center 01/03/2024 [id number] C LOPEZJAYY [facility] [place] Encounter Status:Closed by JUAN C LOPEZ on 01/03/24 PROGRESS Observed: 01/03/2024 9:08 AM Status: COMPLETED Source: [facility] ID: [id number] Author: JUAN C LOPEZ APRN.[employer]BER Service: ? Author Type: Nurse Practitioner Type: Progress Notes Filed: 01/03/2024 09:27 Note Text: Chief Complaint Patient presents with: Rash: X 12 days, with itching, on back stomach, legs. Not improving HPI Cinthya Bone is a 53 year old female who presents here today for Above Complaints.. Patient presents for rash for 12 days. Patient was seen in on 12/23 and treated with prednisone with no improvement. Patient reports rash continues to spread across her back, belly and legs. She is the only person in her home that has the rash. Past medical history, appointments, medications, allergies reviewed. Previous Medical History PAST MEDICAL HISTORY Diagnosis Date Allergic rhinitis, cause unspecified 09/10/2008 Arthritis Arthritis of knee 10/30/2020 Asthma Benign neoplasm of left breast 2018 COVID-19 virus infection 10/14/2021 10/14/2021 Environmental allergies Never formally tested. Sneezes, itches around cats. Excessive or frequent menstruation Heavy periods Fatty liver 01/04/2022 Noted on US 12/2021 Gastroesophageal reflux disease without esophagitis 09/10/2008 Hemorrhage of gastrointestinal tract, unspecified 05/10/2014 Irregular menstrual cycle Irregular periods Liver cyst 01/08/2022 MRI: 12/2021 Mild persistent asthma without complication 12/11/2008 Obesity, Class III, BMI >= 40 (morbid obesity) E66.01 12/03/2016 Pneumonia 2008 Required intubation Restless leg syndrome 10/30/2020 Shortness of breath 2007 Was on a ventolator with pneumonia Situational depression 09/28/2022 Tonsil asymmetry 03/04/2018 Lt at 2+ Rt normal. chronic Well adult exam 09/01/2018 Done 10/30/2020 Previous Surgical History PAST SURGICAL HISTORY Procedure Laterality Date COLONOSCOPY FLX DX W/COLLJ SPEC WHEN PFRMD 05/10/2014 Colonoscopy EXC BREAST LES PREOP PLMT RAD MARKER OPEN 1 LES Left 01/05/2019 HYSTEROSCOPY, DIAGNOSTIC (SEPARATE 06/2010 Hysteroscopy AND curettage INCISE FINGER TENDON SHEATH Right 06/04/2020 Right ring trigger finger LIG/TRNSXJ FLP TUBE ABDL/VAG APPR UNI/BI Tubal ligation VAGINAL HYSTERECTOMY UTERUS 250 GM/< 12/08/2010 [facility] Family History FAMILY HISTORY Problem Relation Age of Onset Obesity Mother Cancer Father Stomach Heart Attack Brother 52 Obesity Brother Hypertension Brother Obesity Maternal Grandmother Obesity Maternal Grandfather Heart Paternal Grandmother COPD Paternal Grandmother Emphysema. Smoker. Obesity Paternal Grandmother Obesity Paternal Grandfather Asthma Son Breast Cancer Paternal Aunt Diabetes Paternal Aunt Patient Allergies ALLERGIES Allergen Reactions Cats Swelling rash Current Medications Current Outpatient Medications on File Prior to Visit Medication Sig cyanocobalamin (VITAMIN B-12) 1,000 mcg tab Take 1,000 mcg by mouth once daily. cholecalciferol (VITAMIN D-3) 400 unit tab Take 400 Units by mouth once daily. semaglutide, weight loss, (WEGOVY) 0.25 mg/0.5 mL pen injector Inject 0.5 mL subcutaneously one time a week for 28 days. metFORMIN ER (GLUCOPHAGE XR) 500 mg 24 hr tablet Take 2 tablets by mouth daily with dinner. mometasone-formoterol (DULERA) 200-5 mcg/actuation inhaler Inhale 2 Puffs as instructed two times a day. loratadine (CLARITIN) 10 mg tablet Take 1 tablet by mouth once daily as needed. FOR ALLERGY SYMPTOMS montelukast (SINGULAIR) 10 mg tablet take 1 tablet by mouth once daily at bedtime DULoxetine (CYMBALTA) 20 mg capsule Take 1 capsule by mouth once daily. albuterol HFA (PROVENTIL HFA, VENTOLIN HFA) 90 mcg/actuation inhaler INHALE 2 PUFFS BY MOUTH EVERY 6 HOURS NEEDED FOR SHORTNESS OF BREATH AND WHEEZING omeprazole (PRILOSEC) 20 mg capsule TAKE TWO CAPSULES BY MOUTH ONCE DAILY BEFORE BREAKFAST buPROPion XL (WELLBUTRIN XL) 300 mg 24 hr tablet Take 1 tablet by mouth once daily. rOPINIRole (REQUIP) 0.5 mg tablet Take one tab 30-45 mi prior to bed for a wee then go to taking two before bed. celecoxib (CELEBREX) 200 mg capsule Take 1 capsule by mouth once daily. Nebulizer Accessories kit Provide 1 kit. albuterol (PROVENTIL) 2.5 mg /3 mL (0.083 %) nebulizer solution Use 3 mL via nebulizer every 4 hours as needed for wheezing/shortness of breath. Use over 5-15minutes. fluticasone (FLONASE) 50 mcg/actuation nasal spray Use 1 [place] in each nostril once daily. promethazine (PHENERGAN) 25 mg tablet Take 1 tablet by mouth every 6 hours as needed. ProAir RespiClick 90 mcg/actuation breath activated (albuterol sulfate) Inhale 2 Puffs as instructed every 6 hours as needed. predniSONE (DELTASONE) 10 mg tablet Take 4 tabs daily for 3 days, then 2 tabs daily for 3 days, then 1 tab daily for 3 days with food. (Patient not taking: Reported on 01/03/2024) No current facility-administered medications on file prior to visit. Social History Social History Tobacco Use Smoking status: Never Smokeless tobacco: Never Tobacco comments: ETS exposure: Spouse and son smoke in home. Other family visitors smoke. Parents and Grandparents smoked in childhood home. Vaping Use Vaping status: Never Used Substance Use Topics Alcohol use: Not Currently Comment: social Drug use: Not Currently Review of Symptoms REVIEW OF SYSTEMS SEE HPI EXAM: BP 126/82 Pulse 70 Resp 16 Wt (!) 137 kg (302 lb) LMP 12/01/2010 (Exact Date) SpO2 98% BMI 52.39 kg/m? General Appearance: Well appearing, alert, in no acute distress, well-hydrated, well nourished.. Skin: Positives: Rash: red scattered scabbed rash to bilateral legs, lower abdomen and back. Health Maintenance List Anxiety Screening Never done Shingrix Vaccine(1 of 2) Never done DTaP,Tdap,Td Vaccine(3 - Td or Tdap) due on 03/11/2023 Covid-19 Vaccine(2023- season) due on 10/23/2023 Colorectal Cancer Screening due on 05/10/2024 Mammogram Screening due on 08/07/2024 Annual PCP Team Chronic Disease Visit due on 10/16/2024 Diabetes Screening due on 11/06/2026 Lipid Screening due on 11/06/2028 Hepatitis B Vaccine Completed Spirometry Completed Influenza Vaccine Completed Hepatitis C Screening Completed Pneumococcal Vaccine Completed Cervical Cancer Screening Discontinued HIV Screening Discontinued ASSESSMENT/PLAN: 1. Rash - ICD9: 782.1, ICD10: R21 - TRIAMCINOLONE ACETONIDE 0.1 % TOPICAL CREAM - CONSULT TO DERMATOLOGY Juan C Lopez APRN.[employer]BER PROGRESS Observed: 12/24/2023 2:18 PM Status: COMPLETED Source: [facility] ID: [id number] Author: SHASHI DORSEY APRN.[employer]BER Service: ? Author Type: Nurse Practitioner Type: Progress Notes Filed: 12/24/2023 14:30 Note Text: Subjective HPI Nontoxic female presents urgent care chief plaint rash. Duration of symptoms 2 days. Associated symptoms pruritic rash on lower legs back and abdomen. OTC medication little to no success. No recent antibiotic use. No pain. Overall feels well. No fevers nausea vomiting or abdominal pain. Past medical history prescription medications allergies reviewed. .Patient presents with: Rash: X 2 days on legs, belly and back PAST MEDICAL HISTORY Diagnosis Date Allergic rhinitis, cause unspecified 09/10/2008 Arthritis Arthritis of knee 10/30/2020 Asthma Benign neoplasm of left breast 2018 COVID-19 virus infection 10/14/2021 10/14/2021 Environmental allergies Never formally tested. Sneezes, itches around cats. Excessive or frequent menstruation Heavy periods Fatty liver 01/04/2022 Noted on US 12/2021 Gastroesophageal reflux disease without esophagitis 09/10/2008 Hemorrhage of gastrointestinal tract, unspecified 05/10/2014 Irregular menstrual cycle Irregular periods Liver cyst 01/08/2022 MRI: 12/2021 Mild persistent asthma without complication 12/11/2008 Obesity, Class III, BMI >= 40 (morbid obesity) E66.01 12/03/2016 Pneumonia 2008 Required intubation Restless leg syndrome 10/30/2020 Shortness of breath 2006 Was on a ventolator with pneumonia Situational depression 09/28/2022 Tonsil asymmetry 03/04/2018 Lt at 2+ Rt normal. chronic Well adult exam 09/01/2018 Done 10/30/2020 PAST SURGICAL HISTORY Procedure Laterality Date COLONOSCOPY FLX DX W/COLLJ SPEC WHEN PFRMD 05/10/2014 Colonoscopy EXC BREAST LES PREOP PLMT RAD MARKER OPEN 1 LES Left 01/05/2019 HYSTEROSCOPY, DIAGNOSTIC (SEPARATE 06/2010 Hysteroscopy AND curettage INCISE FINGER TENDON SHEATH Right 06/04/2020 Right ring trigger finger LIG/TRNSXJ FLP TUBE ABDL/VAG APPR UNI/BI Tubal ligation VAGINAL HYSTERECTOMY UTERUS 250 GM/< 12/08/2010 [facility] ALLERGIES Cats MEDICATIONS cyanocobalamin (VITAMIN B-12) 1,000 mcg tab Take 1,000 mcg by mouth once daily. cholecalciferol (VITAMIN D-3) 400 unit tab Take 400 Units by mouth once daily. semaglutide, weight loss, (WEGOVY) 0.25 mg/0.5 mL pen injector Inject 0.5 mL subcutaneously one time a week for 28 days. metFORMIN ER (GLUCOPHAGE XR) 500 mg 24 hr tablet Take 2 tablets by mouth daily with dinner. mometasone-formoterol (DULERA) 200-5 mcg/actuation inhaler Inhale 2 Puffs as instructed two times a day. loratadine (CLARITIN) 10 mg tablet Take 1 tablet by mouth once daily as needed. FOR ALLERGY SYMPTOMS montelukast (SINGULAIR) 10 mg tablet take 1 tablet by mouth once daily at bedtime DULoxetine (CYMBALTA) 20 mg capsule Take 1 capsule by mouth once daily. albuterol HFA (PROVENTIL HFA, VENTOLIN HFA) 90 mcg/actuation inhaler INHALE 2 PUFFS BY MOUTH EVERY 6 HOURS NEEDED FOR SHORTNESS OF BREATH AND WHEEZING omeprazole (PRILOSEC) 20 mg capsule TAKE TWO CAPSULES BY MOUTH ONCE DAILY BEFORE BREAKFAST buPROPion XL (WELLBUTRIN XL) 300 mg 24 hr tablet Take 1 tablet by mouth once daily. rOPINIRole (REQUIP) 0.5 mg tablet Take one tab 30-45 mi prior to bed for a wee then go to taking two before bed. celecoxib (CELEBREX) 200 mg capsule Take 1 capsule by mouth once daily. Nebulizer Accessories kit Provide 1 kit. fluticasone (FLONASE) 50 mcg/actuation nasal spray Use 1 [place] in each nostril once daily. promethazine (PHENERGAN) 25 mg tablet Take 1 tablet by mouth every 6 hours as needed. ProAir RespiClick 90 mcg/actuation breath activated (albuterol sulfate) Inhale 2 Puffs as instructed every 6 hours as needed. albuterol (PROVENTIL) 2.5 mg /3 mL (0.083 %) nebulizer solution Use 3 mL via nebulizer every 4 hours as needed for wheezing/shortness of breath. Use over 5-15minutes. FAMILY HISTORY Problem Relation Age of Onset Obesity Mother Cancer Father Stomach Heart Attack Brother 52 Obesity Brother Hypertension Brother Obesity Maternal Grandmother Obesity Maternal Grandfather Heart Paternal Grandmother COPD Paternal Grandmother Emphysema. Smoker. Obesity Paternal Grandmother Obesity Paternal Grandfather Asthma Son Breast Cancer Paternal Aunt Diabetes Paternal Aunt Social History Tobacco Use Smoking status: Never Smokeless tobacco: Never Tobacco comments: ETS exposure: Spouse and son smoke in home. Other family visitors smoke. Parents and Grandparents smoked in childhood home. Vaping Use Vaping status: Never Used Substance Use Topics Alcohol use: Not Currently Comment: social Drug use: Not Currently BP 122/72 Pulse 78 Temp 36.6 ?C (97.9 ?F) (Tympanic) Resp 16 Wt 135 kg (297 lb 9.9 oz) LMP 12/01/2010 (Exact Date) SpO2 97% BMI 51.63 kg/m? Review of Systems Constitutional: Negative for chills, fever and malaise/fatigue. HENT: Negative for congestion, ear discharge, ear pain, sinus pain and sore throat. Eyes: Negative for blurred vision, pain, discharge and redness. Respiratory: Negative for cough, hemoptysis, sputum production, shortness of breath, wheezing and stridor. Cardiovascular: Negative for chest pain. Gastrointestinal: Negative for abdominal pain, diarrhea, nausea and vomiting. Musculoskeletal: Negative for myalgias. Skin: Positive for itching and rash. Neurological: Negative for dizziness and headaches. Objective Physical Exam Constitutional: General: She is not in acute distress. Appearance: She is not toxic-appearing. HENT: Head: Normocephalic. Nose: Nose normal. Eyes: Pupils: Pupils are equal, round, and reactive to light. Cardiovascular: Rate and Rhythm: Normal rate. Pulmonary: Effort: Pulmonary effort is normal. No respiratory distress. Musculoskeletal: Cervical back: Normal range of motion. Skin: General: Skin is warm and dry. Comments: Erythematous macular papular rash highlighted area noted. Neurological: General: No focal deficit present. Mental Status: She is alert. ASSESSMENT/PLAN: 1. Rash - ICD9: 782.1, ICD10: R21 Diagnosed with rash. No evidence of bacterial infection noted. Placed on prednisone taper. Patient was educated on supportive therapies. Patient will follow up with primary care provider as needed. Patient was instructed to immediately proceed to emergency room for any new, worsening, or symptoms lasting longer than anticipated. The patient's clinical presentation is otherwise unremarkable at this time. Based on exam and clinical finding, the patient is stable for discharge. Plan of care was discussed with patient. Patient verbalizes understanding and agrees to plan of care. This note was generated using [employer] software. It may contain errors in wording, punctuation, or spelling. Shashi Dorsey APRN.[place] CNOV Observed: 12/24/2023 2:15 PM Status: COMPLETED Source: [facility] Office Visit ([facility]) CINTHYA BONE ([id number]) 1970 F NFR Date Time Provider Department 12/24/23 2:15 PM [facility] During your visit today, we recorded the following information about you: Temperature Pulse Respiration Blood pressure 97.9 degrees 78/minute 16/minute 122/72 Weight 135 kg Shashi Dorsey APRN.[employer]BER 12/24/2023 2:30 PM Signed Subjective HPI Nontoxic female presents urgent care chief plaint rash. Duration of symptoms 2 days. Associated symptoms pruritic rash on lower legs back and abdomen. OTC medication little to no success. No recent antibiotic use. No pain. Overall feels well. No fevers nausea vomiting or abdominal pain. Past medical history prescription medications allergies reviewed. .Patient presents with: Rash: X 2 days on legs, belly and back PAST MEDICAL HISTORY Diagnosis Date Allergic rhinitis, cause unspecified 09/10/2008 Arthritis Arthritis of knee 10/30/2020 Asthma Benign neoplasm of left breast 2018 COVID-19 virus infection 10/14/2021 10/14/2021 Environmental allergies Never formally tested. Sneezes, itches around cats. Excessive or frequent menstruation Heavy periods Fatty liver 01/04/2022 Noted on US 12/2021 Gastroesophageal reflux disease without esophagitis 09/10/2008 Hemorrhage of gastrointestinal tract, unspecified 05/10/2014 Irregular menstrual cycle Irregular periods Liver cyst 01/08/2022 MRI: 12/2021 Mild persistent asthma without complication 12/11/2008 Obesity, Class III, BMI >= 40 (morbid obesity) E66.01 12/03/2016 Pneumonia 2008 Required intubation Restless leg syndrome 10/30/2020 Shortness of breath 2006 Was on a ventolator with pneumonia Situational depression 09/28/2022 Tonsil asymmetry 03/04/2018 Lt at 2+ Rt normal. chronic Well adult exam 09/01/2018 Done 10/30/2020 PAST SURGICAL HISTORY Procedure Laterality Date COLONOSCOPY FLX DX W/COLLJ SPEC WHEN PFRMD 05/10/2014 Colonoscopy EXC BREAST LES PREOP PLMT RAD MARKER OPEN 1 LES Left 01/05/2019 HYSTEROSCOPY, DIAGNOSTIC (SEPARATE 06/2010 Hysteroscopy AND curettage INCISE FINGER TENDON SHEATH Right 06/04/2020 Right ring trigger finger LIG/TRNSXJ FLP TUBE ABDL/VAG APPR UNI/BI Tubal ligation VAGINAL HYSTERECTOMY UTERUS 250 GM/< 12/08/2010 [facility] ALLERGIES Cats MEDICATIONS cyanocobalamin (VITAMIN B-12) 1,000 mcg tab Take 1,000 mcg by mouth once daily. cholecalciferol (VITAMIN D-3) 400 unit tab Take 400 Units by mouth once daily. semaglutide, weight loss, (WEGOVY) 0.25 mg/0.5 mL pen injector Inject 0.5 mL subcutaneously one time a week for 28 days. metFORMIN ER (GLUCOPHAGE XR) 500 mg 24 hr tablet Take 2 tablets by mouth daily with dinner. mometasone-formoterol (DULERA) 200-5 mcg/actuation inhaler Inhale 2 Puffs as instructed two times a day. loratadine (CLARITIN) 10 mg tablet Take 1 tablet by mouth once daily as needed. FOR ALLERGY SYMPTOMS montelukast (SINGULAIR) 10 mg tablet take 1 tablet by mouth once daily at bedtime DULoxetine (CYMBALTA) 20 mg capsule Take 1 capsule by mouth once daily. albuterol HFA (PROVENTIL HFA, VENTOLIN HFA) 90 mcg/actuation inhaler INHALE 2 PUFFS BY MOUTH EVERY 6 HOURS NEEDED FOR SHORTNESS OF BREATH AND WHEEZING omeprazole (PRILOSEC) 20 mg capsule TAKE TWO CAPSULES BY MOUTH ONCE DAILY BEFORE BREAKFAST buPROPion XL (WELLBUTRIN XL) 300 mg 24 hr tablet Take 1 tablet by mouth once daily. rOPINIRole (REQUIP) 0.5 mg tablet Take one tab 30-45 mi prior to bed for a wee then go to taking two before bed. celecoxib (CELEBREX) 200 mg capsule Take 1 capsule by mouth once daily. Nebulizer Accessories kit Provide 1 kit. fluticasone (FLONASE) 50 mcg/actuation nasal spray Use 1 [place] in each nostril once daily. promethazine (PHENERGAN) 25 mg tablet Take 1 tablet by mouth every 6 hours as needed. ProAir RespiClick 90 mcg/actuation breath activated (albuterol sulfate) Inhale 2 Puffs as instructed every 6 hours as needed. albuterol (PROVENTIL) 2.5 mg /3 mL (0.083 %) nebulizer solution Use 3 mL via nebulizer every 4 hours as needed for wheezing/shortness of breath. Use over 5-15minutes. FAMILY HISTORY Problem Relation Age of Onset Obesity Mother Cancer Father Stomach Heart Attack Brother 52 Obesity Brother Hypertension Brother Obesity Maternal Grandmother Obesity Maternal Grandfather Heart Paternal Grandmother COPD Paternal Grandmother Emphysema. Smoker. Obesity Paternal Grandmother Obesity Paternal Grandfather Asthma Son Breast Cancer Paternal Aunt Diabetes Paternal Aunt Social History Tobacco Use Smoking status: Never Smokeless tobacco: Never Tobacco comments: ETS exposure: Spouse and son smoke in home. Other family visitors smoke. Parents and Grandparents smoked in childhood home. Vaping Use Vaping status: Never Used Substance Use Topics Alcohol use: Not Currently Comment: social Drug use: Not Currently BP 122/72 Pulse 78 Temp 36.6 ?C (97.9 ?F) (Tympanic) Resp 16 Wt 135 kg (297 lb 9.9 oz) LMP 12/01/2010 (Exact Date) SpO2 97% BMI 51.63 kg/m? Review of Systems Constitutional: Negative for chills, fever and malaise/fatigue. HENT: Negative for congestion, ear discharge, ear pain, sinus pain and sore throat. Eyes: Negative for blurred vision, pain, discharge and redness. Respiratory: Negative for cough, hemoptysis, sputum production, shortness of breath, wheezing and stridor. Cardiovascular: Negative for chest pain. Gastrointestinal: Negative for abdominal pain, diarrhea, nausea and vomiting. Musculoskeletal: Negative for myalgias. Skin: Positive for itching and rash. Neurological: Negative for dizziness and headaches. Objective Physical Exam Constitutional: General: She is not in acute distress. Appearance: She is not toxic-appearing. HENT: Head: Normocephalic. Nose: Nose normal. Eyes: Pupils: Pupils are equal, round, and reactive to light. Cardiovascular: Rate and Rhythm: Normal rate. Pulmonary: Effort: Pulmonary effort is normal. No respiratory distress. Musculoskeletal: Cervical back: Normal range of motion. Skin: General: Skin is warm and dry. Comments: Erythematous macular papular rash highlighted area noted. Neurological: General: No focal deficit present. Mental Status: She is alert. ASSESSMENT/PLAN: 1. Rash - ICD9: 782.1, ICD10: R21 Diagnosed with rash. No evidence of bacterial infection noted. Placed on prednisone taper. Patient was educated on supportive therapies. Patient will follow up with primary care provider as needed. Patient was instructed to immediately proceed to emergency room for any new, worsening, or symptoms lasting longer than anticipated. The patient's clinical presentation is otherwise unremarkable at this time. Based on exam and clinical finding, the patient is stable for discharge. Plan of care was discussed with patient. Patient verbalizes understanding and agrees to plan of care. This note was generated using [employer] software. It may contain errors in wording, punctuation, or spelling. Shashi Dorsey APRN.DAKOTA Allergies As of Date: 12/24/2023 Noted Allergy Reaction CATS 2011 7 - Swelling Comments: rash Date Reviewed: 12/24/2023 Reviewed by: Shashi Dorsey APRN.COMMERCIAL CRABBER - Fully Assessed Reason for Visit: Rash [1087] Cmt: X 2 days on legs, belly and back Primary Visit Diagnosis:Rash [R21] Order(s):predniSONE (DELTASONE) 10 mg tabletTake 4 tabs daily for 3 days, then 2 tabs daily for 3 days, then 1 tab daily for 3 days with food.Disp: 21 tabletRfl: 0 Prescriptions as of 12/24/2023 - predniSONE (DELTASONE) 10 mg tablet Take 4 tabs daily for 3 days, then 2 tabs daily for 3 days, then 1 tab daily for 3 days with food. - cyanocobalamin (VITAMIN B-12) 1,000 mcg tab Take 1,000 mcg by mouth once daily. - cholecalciferol (VITAMIN D-3) 400 unit tab Take 400 Units by mouth once daily. - semaglutide, weight loss, (WEGOVY) 0.25 mg/0.5 mL pen injector Inject 0.5 mL subcutaneously one time a week for 28 days. - metFORMIN ER (GLUCOPHAGE XR) 500 mg 24 hr tablet Take 2 tablets by mouth daily with dinner. - mometasone-formoterol (DULERA) 200-5 mcg/actuation inhaler Inhale 2 Puffs as instructed two times a day. - loratadine (CLARITIN) 10 mg tablet Take 1 tablet by mouth once daily as needed. FOR ALLERGY SYMPTOMS - montelukast (SINGULAIR) 10 mg tablet take 1 tablet by mouth once daily at bedtime - DULoxetine (CYMBALTA) 20 mg capsule Take 1 capsule by mouth once daily. - albuterol HFA (PROVENTIL HFA, VENTOLIN HFA) 90 mcg/actuation inhaler INHALE 2 PUFFS BY MOUTH EVERY 6 HOURS NEEDED FOR SHORTNESS OF BREATH AND WHEEZING - omeprazole (PRILOSEC) 20 mg capsule TAKE TWO CAPSULES BY MOUTH ONCE DAILY BEFORE BREAKFAST - buPROPion XL (WELLBUTRIN XL) 300 mg 24 hr tablet Take 1 tablet by mouth once daily. - rOPINIRole (REQUIP) 0.5 mg tablet Take one tab 30-45 mi prior to bed for a wee then go to taking two before bed. - celecoxib (CELEBREX) 200 mg capsule Take 1 capsule by mouth once daily. - Nebulizer Accessories kit Provide 1 kit. - albuterol (PROVENTIL) 2.5 mg /3 mL (0.083 %) nebulizer solution Use 3 mL via nebulizer every 4 hours as needed for wheezing/shortness of breath. Use over 5-15minutes. - fluticasone (FLONASE) 50 mcg/actuation nasal spray Use 1 [place] in each nostril once daily. - promethazine (PHENERGAN) 25 mg tablet Take 1 tablet by mouth every 6 hours as needed. - ProAir RespiClick 90 mcg/actuation breath activated (albuterol sulfate) Inhale 2 Puffs as instructed every 6 hours as needed. Problem List As Of Date 12/24/2023 Noted Resolved Shortness of breath [R06.02] 01/13/2011 Pneumonia, organism unspecified [J18.9] 07/15/2006 01/13/2011 Acute respiratory failure [J96.00] 07/15/2006 01/13/2011 ACUTE URI NOS [J06.9] 08/07/2007 09/10/2008 Gastroesophageal reflux disease without esophag*09/10/2008 Allergic rhinitis [J30.9] 09/10/2008 Moderate persistent asthma without complication*12/11/2008 Environmental allergies [Z91.09] Obesity, Class III, BMI >= 40 (morbid obesity) *12/03/2016 Irritable mood [R45.4] 03/04/2018 Post menopausal syndrome [N95.1] 03/04/2018 Tonsil asymmetry [J35.8] 03/04/2018 Encounter for screening for diabetes mellitus [*03/04/2018 Well adult exam [Z00.00] 09/01/2018 Medication management [Z79.899] 09/01/2018 Arthritis of knee [M17.10] 10/30/2020 Restless leg syndrome [G25.81] 10/30/2020 COVID-19 virus infection [U07.1] 10/14/2021 Fatty liver [K76.0] 01/04/2022 Liver cyst [K76.89] 01/08/2022 Situational depression [F43.21] 09/28/2022 DRE (obstructive sleep apnea) [G47.33] 11/01/2023 Class 3 severe obesity with serious comorbidity*12/21/2023 Hyperinsulinemia [E16.1] 12/21/2023 Prescriptions ordered this encounter Disp Refills Start End PREDNISONE 10 MG TABLET 21 t* 0 12/24/2023 Sig: Take 4 tabs daily for 3 days, then 2 tabs daily for 3 days, then 1 tab daily for 3 days with food. Level of Service: OFFICE/OUTPATIENT ESTABLISHED MOD [facility] 30 MIN [48902] Encounter Status:Closed by SHASHI DORSEY on 12/24/23 PROGRESS Observed: 12/21/2023 10:00 AM Status: COMPLETED Source: [facility] ID: [id number] Author: JENNIFER RATLIFF APRN.COMMERCIAL CRABBER Service: ? Author Type: Nurse Practitioner Type: Progress Notes Filed: 12/21/2023 13:03 Note Text: Some documentation from previous visit of 11/01/2023 was copied and pasted, documentation has been reviewed and edited as necessary for today's visit. Patient Summary: Jocelyn is a 53 year old Female who presents for follow-up evaluation of obesity/weight management to treat and prevent related co-morbidities. In our previous visits we have discussed lifestyle intervention including a nutrition recommendations and physical activity optimization. Her last office visit was 7 weeks ago. Assessment/plan from last visit: Sleep study appeal letter faxed 12/16/2023 - Bupropion 300 XL for NADIRA and depression, taking at 9:00 AM. - Metformin ER 500 mg at dinner Consult to BMI - considering if unsuccessful at weight loss Interval History PT specifies the following items as new or significant updates since the last appointment: Diarrhea for one week but grandson was ill and it is resolved. - Cravings after dinner Weight loss since last vist:+1 lb. Date: Weight: BMI: Medications: 12/21/2023 301 lb 52.22 Semaglutide 11/01/2023 300 lb 52.04 Metformin ER 500 mg 5% weight loss = 0 lbs, 10% weight loss = 0 lbs Anti-obesity medications: Metformin ER Benefit:slight increased fullness Adverse effects: none Weight promoting medications: Other Cymbalta Inhaled steroid Previous Diet (initial appointment): Awake - 0600 B - 08 coffee with vanilla FF 1 tsp creamer S - none L - 11-12 lunch meat sandwich on wheat with orange or grapes and lemonade or OJ S - none D - 4 pm protein, sometimes breaded and sometimes with gravy/potato or rice/salad or vegetable water or Sprite S - 6 pm fruit or veg in [place] or cookie or chips Fluids: coffee with vanilla FF 1 tsp creamer, lemonade, OJ, regular pop 1 per day, regular Gatorade, regular Body [place] and water Bedtime - 9 pm Quality of diet: 24hr recall suggests unhealthy diet. Characterization of diet:Structured, unhealthy snacking, evening snacking, and increased consumption of sugar sweetened beverages. 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:excessive hunger, lack of satiety, mindlessness , boredom, emotion, and stress Eating Disorder no Cravings: Candy, ice cream Dietary changes: (Initial) B - 30 gm protein shake most days or 1 egg, OJ, black coffee S - sometimes apple L - Balance bar S - none D - 4-5 pm chicken and potato and veg and fruit S - 7 pm cookie or chips or apple with PB Fluids - water, powerade zero, SF pop Current Barriers: emotional eating, stress eating, food cravings, excessive hunger/lack of satiety signals, inadequate sleep duration, and reduced physical activity Exercise: none Regular exercise: no Strength/resistance exercise:yes Barriers to regular exercise? yes left knee pain (seeing Dr. Maher) Work-related activity:Sedentary. Gym Membership: no Activity Tracker: yes, but not currently using average steps per day ? Stress: stable Financial and Personal Sleep: stable 4-6 hours - tosses and turns because of leg pain. DRE YES ; CPAP Ordered but did not have insurance at the time so did get equipment due to cost . Appeal sent for in-hospital sleep study at [facility]. Estimated Creatinine Clearance: 112.6 mL/min (based on SCr of 0.81 mg/dL). PAST MEDICAL HISTORY Diagnosis Date Allergic rhinitis, cause unspecified 09/10/2008 Arthritis Arthritis of knee 10/30/2020 Asthma Benign neoplasm of left breast 2018 COVID-19 virus infection 10/14/2021 10/14/2021 Environmental allergies Never formally tested. Sneezes, itches around cats. Excessive or frequent menstruation Heavy periods Fatty liver 01/04/2022 Noted on US 12/2021 Gastroesophageal reflux disease without esophagitis 09/10/2008 Hemorrhage of gastrointestinal tract, unspecified 05/10/2014 Irregular menstrual cycle Irregular periods Liver cyst 01/08/2022 MRI: 12/2021 Mild persistent asthma without complication 12/11/2008 Obesity, Class III, BMI >= 40 (morbid obesity) E66.01 12/03/2016 Pneumonia 2008 Required intubation Restless leg syndrome 10/30/2020 Shortness of breath 2007 Was on a ventolator with pneumonia Situational depression 09/28/2022 Tonsil asymmetry 03/04/2018 Lt at 2+ Rt normal. chronic Well adult exam 09/01/2018 Done 10/30/2020 Current Outpatient Medications Medication Sig Dispense Refill mometasone-formoterol (DULERA) 200-5 mcg/actuation inhaler Inhale 2 Puffs as instructed two times a day. 18 g 11 loratadine (CLARITIN) 10 mg tablet Take 1 tablet by mouth once daily as needed. FOR ALLERGY SYMPTOMS 30 tablet 11 metFORMIN ER (GLUCOPHAGE XR) 500 mg 24 hr tablet Take 1 tablet by mouth daily with dinner. 90 tablet 0 montelukast (SINGULAIR) 10 mg tablet take 1 tablet by mouth once daily at bedtime 30 tablet 0 DULoxetine (CYMBALTA) 20 mg capsule Take 1 capsule by mouth once daily. 90 capsule 1 albuterol HFA (PROVENTIL HFA, VENTOLIN HFA) 90 mcg/actuation inhaler INHALE 2 PUFFS BY MOUTH EVERY 6 HOURS NEEDED FOR SHORTNESS OF BREATH AND WHEEZING 1 Each 5 omeprazole (PRILOSEC) 20 mg capsule TAKE TWO CAPSULES BY MOUTH ONCE DAILY BEFORE BREAKFAST 180 capsule 1 buPROPion XL (WELLBUTRIN XL) 300 mg 24 hr tablet Take 1 tablet by mouth once daily. 90 tablet 1 rOPINIRole (REQUIP) 0.5 mg tablet Take one tab 30-45 mi prior to bed for a wee then go to taking two before bed. 60 tablet 5 celecoxib (CELEBREX) 200 mg capsule Take 1 capsule by mouth once daily. 30 capsule 5 Nebulizer Accessories kit Provide 1 kit. 1 Each 4 albuterol (PROVENTIL) 2.5 mg /3 mL (0.083 %) nebulizer solution Use 3 mL via nebulizer every 4 hours as needed for wheezing/shortness of breath. Use over 5-15minutes. 360 mL 3 fluticasone (FLONASE) 50 mcg/actuation nasal spray Use 1 [place] in each nostril once daily. 1 Each 5 promethazine (PHENERGAN) 25 mg tablet Take 1 tablet by mouth every 6 hours as needed. 12 tablet 0 ProAir RespiClick 90 mcg/actuation breath activated (albuterol sulfate) Inhale 2 Puffs as instructed every 6 hours as needed. 1 Each 5 No current facility-administered medications for this visit. ROS/Fam Hx pertaining to AOMs: GEN: Fatigue:yes PULM: Asthma:yes GI: GERD:yes Fatty liver disease:yes MSK: Joint Pain:yes Occupation: Unemployed and filing for disability Contraception: hysterectomy BP 126/80 Resp 16 Wt (!) 136.5 kg (301 lb) LMP 12/01/2010 (Exact Date) BMI 52.22 kg/m? Physical Exam Constitutional: She appears healthy. No distress. Results: recent labs reviewed with the patient. Latest Ref Rng AND Units 11/07/2023 CMP Sodium 136 - 144 mmol/L 141 Potassium 3.7 - 5.1 mmol/L 4.2 Chloride 98 - 107 mmol/L 106 CO2 22 - 30 mmol/L 24 Glucose 74 - 99 mg/dL 93 BUN 7 - 21 mg/dL 14 Creatinine 0.58 - 0.96 mg/dL 0.81 EGFR >=60 mL/min/1.73m? 89 Protein, Total 6.3 - 8.0 g/dL 6.9 Albumin 3.9 - 4.9 g/dL 4.3 Calcium 8.5 - 10.2 mg/dL 9.6 Bilirubin, Total 0.2 - 1.3 mg/dL 0.2 AST 13 - 35 U/L 17 ALT 7 - 38 U/L 21 Alkaline Phosphatase 34 - 123 U/L 77 Cholesterol, Total (mg/dL) Date Value 11/07/2023 181 03/09/2019 173 Total Cholesterol, Nonfasting (mg/dL) Date Value 10/30/2020 179 HDL Cholesterol (mg/dL) Date Value 11/07/2023 53 03/09/2019 66 HDL Cholesterol, Nonfasting (mg/dL) Date Value 10/30/2020 60 LDL Cholesterol (mg/dL) Date Value 11/07/2023 97 03/09/2019 84 LDL Cholesterol, Nonfasting (mg/dL) Date Value 11/01/2022 89 10/30/2020 89 Triglyceride (mg/dL) Date Value 11/07/2023 155 03/09/2019 113 Triglycerides, Nonfasting (mg/dL) Date Value 10/30/2020 151 Latest Ref Rng AND Units 11/07/2023 CBC WBC 3.70 - 11.00 k/uL 6.23 RBC 3.90 - 5.20 m/uL 4.89 Hemoglobin 11.5 - 15.5 g/dL 12.9 Hematocrit 36.0 - 46.0 % 40.0 MCV 80.0 - 100.0 fL 81.8 MCH 26.0 - 34.0 pg 26.4 MCHC 30.5 - 36.0 g/dL 32.3 RDW-CV 11.5 - 15.0 % 14.0 Platelet Count 150 - 400 k/uL 357 MPV 9.0 - 12.7 fL 9.6 Vitamin D 25 Hydroxy Date Value Ref Range Status 11/07/2023 26.8 (L) 31.0 - 80.0 ng/mL Final Comment: Classification of 25 [place] Vitamin D status: Deficiency/Insufficiency: < or = 30 ng/ml. Sufficiency/Optimal Levels: 31-80 ng/mL Toxicity: > 100 ng/mL. Test performed by chemiluminescent immunoassay. TSH Date Value 11/07/2023 2.290 mIU/L 11/01/2022 1.850 mIU/L 10/08/2019 1.670 uU/mL 11/10/2018 2.560 uU/mL Hemoglobin A1C (%) Date Value 11/07/2023 5.3 11/01/2022 5.0 09/30/2021 5.0 10/30/2020 5.0 03/04/2018 4.7 Insulin Date Value Ref Range Status 11/07/2023 33.4 (H) 3.0 - 25.0 mU/L Final Assessment/Plan: Cinthya Bone is a 53 year old yo with Class III obesity who presented today for follow up for supervised weight loss to treat and prevent related co-morbidities. 1. Gastroesophageal reflux disease without esophagitis - ICD9: 530.81, ICD10: K21.9 (primary diagnosis) -Omeprazole daily - benefits of weight loss - Whole food balanced protein low-carb nutrition 2. DRE (obstructive sleep apnea) - ICD9: 327.23, ICD10: G47.33 -Sleep study done at [facility].CPAP Ordered but did not have insurance at the time so did get equipment due to cost. Sleep study appeal letter faxed 12/16/2023 - benefits of weight loss - Whole food balanced protein low-carb nutrition 3. Moderate persistent asthma without complication - ICD9: 493.90, ICD10: J45.40 -Treated with Flonase, Singulair, loratadine, albuterol nebulizer and inhaler, Dulera inhaler 4. Fatty liver - ICD9: 571.8, ICD10: K76.0 - benefits of weight loss - Whole food balanced protein low-carb nutrition 5. Arthritis of knee - ICD9: 716.96, ICD10: M17.10 - benefits of weight loss - Whole food balanced protein low-carb nutrition 6. Class 3 severe obesity with serious comorbidity and body mass index (BMI) of 50.0 to 59.9 in adult, unspecified obesity type (HCC) - ICD9: 278.01, V85.43, ICD10: E66.01, Z68.43 Weight increased - consult to BMI placed. Lengthy discussion regarding benefits - patient question answered to her satisfaction. She plans to complete questionnaire. - SEMAGLUTIDE (WEIGHT LOSS) 0.25 MG/0.5 ML SUBCUTANEOUS PEN INJECTOR Interested and requesting to add Wegovy today. She denies family history of thyroid cancer, MEN2 or pancreatitis. Educated on increased risk for inflammation of the pancreas (pancreatitis), gallbladder problems (including gallstones), low blood sugar, acute kidney injury, diabetic retinopathy (damage to the eye's retina), increased heart rate and suicidal behavior or thinking. Prescription sent today and detailed instructions on how to use the [employer] pen provided in the patient instructions. Patient also referred to [email or web address] for injection training video and encouraged to reach out if in-person pen training is needed. - METFORMIN ER 500 MG TABLET,EXTENDED RELEASE 24 HR. Agreeable to begin Metformin 500 mg with dinner daily x 1 week. If tolerating will increase to 2 tablets with dinner daily. We discussed common side effects of this medication including nausea, changes in bowel habits, abdominal discomfort, and flatulence. Discussed taking it with food and complication of lactic acidosis and signs/symptoms and medication handout given. Further instructed that if she experiences malaise, muscle aches, difficulty breathing, or severe abdominal pain to seek immediate medical attention. -Sleep study done at [facility].CPAP Ordered but did not have insurance at the time so did get equipment due to cost. Sleep study appeal letter faxed 12/16/2023 -- We discussed several strategies to track food intake and increase mindfulness around eating will decrease calorie intake. She was counseled on the following: Eating primarily whole foods. Limit carbs, especially processed carbs. Do not drink your calories 30 grams of protein for breakfast decreases your hunger during the day by up to 40 % Premier Protein or generic 30 gm protein 1 gm sugar - add protein to every meal and snack - specific meal suggestions and snack suggestions given Walk for 15 minutes immediately a meal. -- Encouraged the patient to improve her physical activity as able. An overall goal of 150-200 minutes per week of exercise has been effective in weight loss and maintenance. -- Reviewed that monitoring weight daily and food intake can have a positive impact on overall weight loss and maintenance of weight loss. Activity tracking can be used to stay on target for exercise however should not be used to reward oneself She understands that there can be limitations of pharmacotherapy due to contraindications, side effects and cost. Patient was told to contact her insurance company to see what AOMs and supervised behavioral medical appointments are currently covered. Patient understands she will have more success when following a healthy lifestyle. We reviewed continued use of online tracking of daily weights, food journal and if desired physical activity. We reviewed that during management she is to report any concerning side effects of any pharmacotherapy she is placed on. She understands that she will need routine follow up in the office. Prior to any virtual visits in the future she will need to check her Blood pressure, weight, and pulse. Prescription instructions reviewed with patient as applicable. Potential red flag symptoms discussed with the patient. Reviewed appropriate action plan to take if red flag symptoms occur. Patient agreeable to treatment plan. Follow up in 4 months Jennifer Ratliff CNP Advanced Education from the [employer] Medical Decision Making: Problems: Moderate: 2+ stable chronic illnesses and 1+ chronic illnesses with change Risk: Moderate: Drug management and Moderate risk from testing/treatment Medical Decision Making Level: 4 - Moderate CNOV Observed: 12/21/2023 10:00 AM Status: COMPLETED Source: [facility] Office Visit (OBGYWM) CINTHYA BONE ([id number]) 1970 F NFR Date Time Provider Department 12/21/23 10:00 AM JENNIFER RATLIFF During your visit today, we recorded the following information about you: Respiration Blood pressure Weight 16/minute 126/80 136.5 kg Jennifer Ratliff APRN.CNP 12/21/2023 1:03 PM Signed Some documentation from previous visit of 11/01/2023 was copied and pasted, documentation has been reviewed and edited as necessary for today's visit. Patient Summary: Jocelyn is a 53 year old Female who presents for follow-up evaluation of obesity/weight management to treat and prevent related co-morbidities. In our previous visits we have discussed lifestyle intervention including a nutrition recommendations and physical activity optimization. Her last office visit was 7 weeks ago. Assessment/plan from last visit: Sleep study appeal letter faxed 12/16/2023 - Bupropion 300 XL for NADIRA and depression, taking at 9:00 AM. - Metformin ER 500 mg at dinner Consult to BMI - considering if unsuccessful at weight loss Interval History PT specifies the following items as new or significant updates since the last appointment: Diarrhea for one week but grandson was ill and it is resolved. - Cravings after dinner Weight loss since last vist:+1 lb. Date: Weight: BMI: Medications: 12/21/2023 301 lb 52.22 Semaglutide 11/01/2023 300 lb 52.04 Metformin ER 500 mg 5% weight loss = 0 lbs, 10% weight loss = 0 lbs Anti-obesity medications: Metformin ER Benefit:slight increased fullness Adverse effects: none Weight promoting medications: Other Cymbalta Inhaled steroid Previous Diet (initial appointment): Awake - 0600 B - 08 coffee with vanilla FF 1 tsp creamer S - none L - 11-12 lunch meat sandwich on wheat with orange or grapes and lemonade or OJ S - none D - 4 pm protein, sometimes breaded and sometimes with gravy/potato or rice/salad or vegetable water or Sprite S - 6 pm fruit or veg in [place] or cookie or chips Fluids: coffee with vanilla FF 1 tsp creamer, lemonade, OJ, regular pop 1 per day, regular Gatorade, regular Body [place] and water Bedtime - 9 pm Quality of diet: 24hr recall suggests unhealthy diet. Characterization of diet:Structured, unhealthy snacking, evening snacking, and increased consumption of sugar sweetened beverages. 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:excessive hunger, lack of satiety, mindlessness , boredom, emotion, and stress Eating Disorder no Cravings: Candy, ice cream Dietary changes: (Initial) B - 30 gm protein shake most days or 1 egg, OJ, black coffee S - sometimes apple L - Balance bar S - none D - 4-5 pm chicken and potato and veg and fruit S - 7 pm cookie or chips or apple with PB Fluids - water, powerade zero, SF pop Current Barriers: emotional eating, stress eating, food cravings, excessive hunger/lack of satiety signals, inadequate sleep duration, and reduced physical activity Exercise: none Regular exercise: no Strength/resistance exercise:yes Barriers to regular exercise? yes left knee pain (seeing Dr. Maher) Work-related activity:Sedentary. Gym Membership: no Activity Tracker: yes, but not currently using average steps per day ? Stress: stable Financial and Personal Sleep: stable 4-6 hours - tosses and turns because of leg pain. DRE YES ; CPAP Ordered but did not have insurance at the time so did get equipment due to cost . Appeal sent for in-hospital sleep study at [facility]. Estimated Creatinine Clearance: 112.6 mL/min (based on SCr of 0.81 mg/dL). PAST MEDICAL HISTORY Diagnosis Date Allergic rhinitis, cause unspecified 09/10/2008 Arthritis Arthritis of knee 10/30/2020 Asthma Benign neoplasm of left breast 2018 COVID-19 virus infection 10/14/2021 10/14/2021 Environmental allergies Never formally tested. Sneezes, itches around cats. Excessive or frequent menstruation Heavy periods Fatty liver 01/04/2022 Noted on US 12/2021 Gastroesophageal reflux disease without esophagitis 09/10/2008 Hemorrhage of gastrointestinal tract, unspecified 05/10/2014 Irregular menstrual cycle Irregular periods Liver cyst 01/08/2022 MRI: 12/2021 Mild persistent asthma without complication 12/11/2008 Obesity, Class III, BMI >= 40 (morbid obesity) E66.01 12/03/2016 Pneumonia 2008 Required intubation Restless leg syndrome 10/30/2020 Shortness of breath 2007 Was on a ventolator with pneumonia Situational depression 09/28/2022 Tonsil asymmetry 03/04/2018 Lt at 2+ Rt normal. chronic Well adult exam 09/01/2018 Done 10/30/2020 Current Outpatient Medications Medication Sig Dispense Refill mometasone-formoterol (DULERA) 200-5 mcg/actuation inhaler Inhale 2 Puffs as instructed two times a day. 18 g 11 loratadine (CLARITIN) 10 mg tablet Take 1 tablet by mouth once daily as needed. FOR ALLERGY SYMPTOMS 30 tablet 11 metFORMIN ER (GLUCOPHAGE XR) 500 mg 24 hr tablet Take 1 tablet by mouth daily with dinner. 90 tablet 0 montelukast (SINGULAIR) 10 mg tablet take 1 tablet by mouth once daily at bedtime 30 tablet 0 DULoxetine (CYMBALTA) 20 mg capsule Take 1 capsule by mouth once daily. 90 capsule 1 albuterol HFA (PROVENTIL HFA, VENTOLIN HFA) 90 mcg/actuation inhaler INHALE 2 PUFFS BY MOUTH EVERY 6 HOURS NEEDED FOR SHORTNESS OF BREATH AND WHEEZING 1 Each 5 omeprazole (PRILOSEC) 20 mg capsule TAKE TWO CAPSULES BY MOUTH ONCE DAILY BEFORE BREAKFAST 180 capsule 1 buPROPion XL (WELLBUTRIN XL) 300 mg 24 hr tablet Take 1 tablet by mouth once daily. 90 tablet 1 rOPINIRole (REQUIP) 0.5 mg tablet Take one tab 30-45 mi prior to bed for a wee then go to taking two before bed. 60 tablet 5 celecoxib (CELEBREX) 200 mg capsule Take 1 capsule by mouth once daily. 30 capsule 5 Nebulizer Accessories kit Provide 1 kit. 1 Each 4 albuterol (PROVENTIL) 2.5 mg /3 mL (0.083 %) nebulizer solution Use 3 mL via nebulizer every 4 hours as needed for wheezing/shortness of breath. Use over 5-15minutes. 360 mL 3 fluticasone (FLONASE) 50 mcg/actuation nasal spray Use 1 [place] in each nostril once daily. 1 Each 5 promethazine (PHENERGAN) 25 mg tablet Take 1 tablet by mouth every 6 hours as needed. 12 tablet 0 ProAir RespiClick 90 mcg/actuation breath activated (albuterol sulfate) Inhale 2 Puffs as instructed every 6 hours as needed. 1 Each 5 No current facility-administered medications for this visit. ROS/Fam Hx pertaining to AOMs: GEN: Fatigue:yes PULM: Asthma:yes GI: GERD:yes Fatty liver disease:yes MSK: Joint Pain:yes Occupation: Unemployed and filing for disability Contraception: hysterectomy BP 126/80 Resp 16 Wt (!) 136.5 kg (301 lb) LMP 12/01/2010 (Exact Date) BMI 52.22 kg/m? Physical Exam Constitutional: She appears healthy. No distress. Results: recent labs reviewed with the patient. Latest Ref Rng AND Units 11/07/2023 CMP Sodium 136 - 144 mmol/L 141 Potassium 3.7 - 5.1 mmol/L 4.2 Chloride 98 - 107 mmol/L 106 CO2 22 - 30 mmol/L 24 Glucose 74 - 99 mg/dL 93 BUN 7 - 21 mg/dL 14 Creatinine 0.58 - 0.96 mg/dL 0.81 EGFR >=60 mL/min/1.73m? 89 Protein, Total 6.3 - 8.0 g/dL 6.9 Albumin 3.9 - 4.9 g/dL 4.3 Calcium 8.5 - 10.2 mg/dL 9.6 Bilirubin, Total 0.2 - 1.3 mg/dL 0.2 AST 13 - 35 U/L 17 ALT 7 - 38 U/L 21 Alkaline Phosphatase 34 - 123 U/L 77 Cholesterol, Total (mg/dL) Date Value 11/07/2023 181 03/09/2019 173 Total Cholesterol, Nonfasting (mg/dL) Date Value 10/30/2020 179 HDL Cholesterol (mg/dL) Date Value 11/07/2023 53 03/09/2019 66 HDL Cholesterol, Nonfasting (mg/dL) Date Value 10/30/2020 60 LDL Cholesterol (mg/dL) Date Value 11/07/2023 97 03/09/2019 84 LDL Cholesterol, Nonfasting (mg/dL) Date Value 11/01/2022 89 10/30/2020 89 Triglyceride (mg/dL) Date Value 11/07/2023 155 03/09/2019 113 Triglycerides, Nonfasting (mg/dL) Date Value 10/30/2020 151 Latest Ref Rng AND Units 11/07/2023 CBC WBC 3.70 - 11.00 k/uL 6.23 RBC 3.90 - 5.20 m/uL 4.89 Hemoglobin 11.5 - 15.5 g/dL 12.9 Hematocrit 36.0 - 46.0 % 40.0 MCV 80.0 - 100.0 fL 81.8 MCH 26.0 - 34.0 pg 26.4 MCHC 30.5 - 36.0 g/dL 32.3 RDW-CV 11.5 - 15.0 % 14.0 Platelet Count 150 - 400 k/uL 357 MPV 9.0 - 12.7 fL 9.6 Vitamin D 25 Hydroxy Date Value Ref Range Status 11/07/2023 26.8 (L) 31.0 - 80.0 ng/mL Final Comment: Classification of 25 OH Vitamin D status: Deficiency/Insufficiency: < or = 30 ng/ml. Sufficiency/Optimal Levels: 31-80 ng/mL Toxicity: > 100 ng/mL. Test performed by chemiluminescent immunoassay. TSH Date Value 11/07/2023 2.290 mIU/L 11/01/2022 1.850 mIU/L 10/08/2019 1.670 uU/mL 11/10/2018 2.560 uU/mL Hemoglobin A1C (%) Date Value 11/07/2023 5.3 11/01/2022 5.0 09/30/2021 5.0 10/30/2020 5.0 03/04/2018 4.7 Insulin Date Value Ref Range Status 11/07/2023 33.4 (H) 3.0 - 25.0 mU/L Final Assessment/Plan: Cinthya Bone is a 53 year old yo with Class III obesity who presented today for follow up for supervised weight loss to treat and prevent related co-morbidities. 1. Gastroesophageal reflux disease without esophagitis - ICD9: 530.81, ICD10: K21.9 (primary diagnosis) -Omeprazole daily - benefits of weight loss - Whole food balanced protein low-carb nutrition 2. DRE (obstructive sleep apnea) - ICD9: 327.23, ICD10: G47.33 -Sleep study done at [facility].CPAP Ordered but did not have insurance at the time so did get equipment due to cost. Sleep study appeal letter faxed 12/16/2023 - benefits of weight loss - Whole food balanced protein low-carb nutrition 3. Moderate persistent asthma without complication - ICD9: 493.90, ICD10: J45.40 -Treated with Flonase, Singulair, loratadine, albuterol nebulizer and inhaler, Dulera inhaler 4. Fatty liver - ICD9: 571.8, ICD10: K76.0 - benefits of weight loss - Whole food balanced protein low-carb nutrition 5. Arthritis of knee - ICD9: 716.96, ICD10: M17.10 - benefits of weight loss - Whole food balanced protein low-carb nutrition 6. Class 3 severe obesity with serious comorbidity and body mass index (BMI) of 50.0 to 59.9 in adult, unspecified obesity type (HCC) - ICD9: 278.01, V85.43, ICD10: E66.01, Z68.43 Weight increased - consult to BMI placed. Lengthy discussion regarding benefits - patient question answered to her satisfaction. She plans to complete questionnaire. - SEMAGLUTIDE (WEIGHT LOSS) 0.25 MG/0.5 ML SUBCUTANEOUS PEN INJECTOR Interested and requesting to add Wegovy today. She denies family history of thyroid cancer, MEN2 or pancreatitis. Educated on increased risk for inflammation of the pancreas (pancreatitis), gallbladder problems (including gallstones), low blood sugar, acute kidney injury, diabetic retinopathy (damage to the eye's retina), increased heart rate and suicidal behavior or thinking. Prescription sent today and detailed instructions on how to use the [employer] pen provided in the patient instructions. Patient also referred to www.Cashplay.co for injection training video and encouraged to reach out if in-person pen training is needed. - METFORMIN ER 500 MG TABLET,EXTENDED RELEASE 24 HR. Agreeable to begin Metformin 500 mg with dinner daily x 1 week. If tolerating will increase to 2 tablets with dinner daily. We discussed common side effects of this medication including nausea, changes in bowel habits, abdominal discomfort, and flatulence. Discussed taking it with food and complication of lactic acidosis and signs/symptoms and medication handout given. Further instructed that if she experiences malaise, muscle aches, difficulty breathing, or severe abdominal pain to seek immediate medical attention. -Sleep study done at [facility].CPAP Ordered but did not have insurance at the time so did get equipment due to cost. Sleep study appeal letter faxed 12/16/2023 -- We discussed several strategies to track food intake and increase mindfulness around eating will decrease calorie intake. She was counseled on the following: Eating primarily whole foods. Limit carbs, especially processed carbs. Do not drink your calories 30 grams of protein for breakfast decreases your hunger during the day by up to 40 % Premier Protein or generic 30 gm protein 1 gm sugar - add protein to every meal and snack - specific meal suggestions and snack suggestions given Walk for 15 minutes immediately a meal. -- Encouraged the patient to improve her physical activity as able. An overall goal of 150-200 minutes per week of exercise has been effective in weight loss and maintenance. -- Reviewed that monitoring weight daily and food intake can have a positive impact on overall weight loss and maintenance of weight loss. Activity tracking can be used to stay on target for exercise however should not be used to reward oneself She understands that there can be limitations of pharmacotherapy due to contraindications, side effects and cost. Patient was told to contact her insurance company to see what AOMs and supervised behavioral medical appointments are currently covered. Patient understands she will have more success when following a healthy lifestyle. We reviewed continued use of online tracking of daily weights, food journal and if desired physical activity. We reviewed that during management she is to report any concerning side effects of any pharmacotherapy she is placed on. She understands that she will need routine follow up in the office. Prior to any virtual visits in the future she will need to check her Blood pressure, weight, and pulse. Prescription instructions reviewed with patient as applicable. Potential red flag symptoms discussed with the patient. Reviewed appropriate action plan to take if red flag symptoms occur. Patient agreeable to treatment plan. Follow up in 4 months Jennifer Ratliff CNP Advanced Education from the [employer] Medical Decision Making: Problems: Moderate: 2+ stable chronic illnesses and 1+ chronic illnesses with change Risk: Moderate: Drug management and Moderate risk from testing/treatment Medical Decision Making Level: 4 - Moderate Jennifer Ratliff APRN.CNP 12/21/2023 10:52 AM Addendum - Eat primarily whole foods. Limit carbs, especially processed carbs. Eat - Meat, vegetables and fruits with skin on if possible, eggs, cheese. - Do not drink your calories - 30 grams of protein for your first meal of the day decreases your hunger during the day by up to 40 %. Options include: Premier Protein or generic 30 gm protein 1 gm sugar or 5 eggs or 2-3 eggs and some unbreaded meat and/or cheese. No fruit, vegetables, bread, grain, yogurt, Smoothies, etc. - Walk for 15 minutes immediately after meal B - 30 gm protein shake or 2-3 eggs and some unbreaded meat and/or cheese. S - veg with Ranch/dip or cheese or celery with 1-2 T PB if hungry L - 4 oz meat or less with yogurt or cottage cheese and fruit/veg S - same as above if hungry D - 4 oz meat with whole foods potato/sweet potato/pasta/rice/quinoa/corn/cortes beans/peas/legumes/fruit - eat skins if you can and vegetables. S - as above if hungry Moz[place] yogurt Full Fat Mozambican Yogurt 1 cup - 20.4g protein AND 9.1g carb 2% Mozambican Yogurt 1 cup - 22.7g protein AND 9.1g carb 0% (fat-free) Moz[place]ican Yogurt - 1 cup 24g protein AND 9.3g carb Aldi Protein Moz[place]ican yogurt single svg - 15g protein AND 7g carb Chobani Zero Sugar single svg: - 12g protein AND 5g carb Dannon Moz[place]ican Light + Fit 1 single svg - 12g protein AND 9g carb Oikos Pro single svg - 20g protein AND 8g carb Oikos Triple Zero Moz[place] Nonfat Yogurt 1 single svg - 15g protein AND 7g carb :ratio, KETO Friendly Dairy Snack 1 single svg - 15g protein AND 2g carb :ratio Protein 1 single svg - 25g protein AND 8g carb Two Good Lowfat [place] Yogurt, [place], Lower Sugar - 12g protein AND 2g carb Yoplait Protein 1 single svg 15gm protein AND 5gm carb Dairy Free - [place] Evarts unsweetened Mozambican almond/soy 15 gm protein AND 3 gm carb High Protein Snack Ideas 1. Jerky 2. [place] mix without dried fruit 3. Gail roll-ups 4. [place]ican yogurt 5. Veggies and yogurt dip 6. Tuna 7. Hard-boiled eggs 8. Peanut butter with celery 9. Cheese slices/ Cheese Stick 10. Handful of almonds, peanuts or walnuts 11. Cottage Cheese 12. Beef sticks 13. Protein bars 14. Canned [place] 15. Pumpkin seeds 16. Nut butter 17. Protein shakes 18. Avocado and chicken salad 19. Egg muffins 20. Leftover protein or lunch meat 21. 1/2 c blended cottage cheese or [place]amb[place] yogurt with dry ranch/Mrs. Dash/herb seasoning mix to make protein dip 22. 1/2 c blended cottage cheese with 1 Tbsp sugar-free dry cheesecake pudding mix 12g protein 10 carb 23. Pudding - 1 30 gm protein shake with 1/2 pkg sugar-free pudding 4 svgs - 7.8 gm protein, 5 carb each svg 24. SF Sunkist or Root Beer with 1-2 Tablespoons heavy whipping cream 25. Mini frozen dessert bites - layer protein yogurt, skinny syrup and crushed nuts and freeze SEMAGLUTIDE 2.4mg (WEGOVY) Please keep medication refrigerated* If needed, Wegovy? can be kept outside of the refrigerator with the pen cap still on for up to 28 days. Unused pens that are stored in the fridge are safe to use up until their expiry date. How Does Wegovy Work? Wegovy? works by mimicking a hormone that targets areas of the brain involved in regulating appetite and food intake. This can help you eat less, which can lead to weight loss. How much weight can I lose on Wegovy? In a 68-week medical study of 1,961 adults living with obesity or excess weight with a related medical problem, adults lost ~35 lbs (or ~15% body weight). People taking placebo lost an average of 6 lbs (or ~2.5% body weight). The average starting weight for both groups was ~232 lbs. How soon can I expect to lose weight with Wegovy?? People respond to medicines differently, so there is no set time for when you can expect to see results with Wegovy?. Ask your health care provider about what might be a realistic expectation for you. What are the most common side effects of Wegovy?? The most common side effects of Wegovy? may include: nausea, diarrhea, vomiting, constipation, stomach (abdomen) pain, headache, tiredness (fatigue), upset stomach, dizziness, feeling bloated, belching, gas, stomach flu, and heartburn. Can I travel with Wegovy?? It is possible to travel with your Wegovy? pen: When traveling by air, keep your Wegovy? pen with you or in your carry-on, as it may freeze in the baggage compartment. Be sure to check with the airline to see if they have any specific baggage rules. If needed, Wegovy? may be stored between 46?F and 86?F in the original carton for up to 28 days. How often is Wegovy? taken? Wegovy? is taken once a week, any time of day, with or without food. (Try taking it at night at first) Can I change the day or time when I take Wegovy?? Take Wegovy? 1 time each week, on the same day each week, at any time of the day. You may change the day of the week you take Wegovy? as long as your last dose was given 2 or more days before. What should I do if I have missed a dose of Wegovy?? If you miss a dose of Wegovy? and the next scheduled dose is more than 2 days away (48 hours), take the missed dose as soon as possible. If you miss a dose of Wegovy? and the next scheduled dose is less than 2 days away (48 hours), do not administer the dose. Take your next dose on the regularly scheduled day. If you miss doses of Wegovy? for more than 2 weeks, take your next dose on the regularly scheduled day or call your health care provider to talk about how to restart your treatment. What if I?m nervous at the thought of injecting myself? If you sign up for flux - neutrinity?, one of our coaches can walk you through the injection process. You may also refer to the Wegovy? Instructions for Use for full instructions. How can I dispose of my used Wegovy? pens? It?s important to properly dispose of your used Wegovy? pens. Do not throw the pen away in your household trash. Instead, use an FDA-cleared sharps disposal container or a sturdy household container with a tight-fitting lid, like a heavy-duty plastic container. Other requirements include puncture resistant, upright and stable during use, leak resistant and properly labled. Further Questions? You can also always call a [employer]? Environmental Field Technician at [phone]-[employer] ([facility]). Or see the resources below. Copied from https://www.Cashplay.co/ Please visit the website below for the medication guide. https://www.Cashplay.co/ Link to savings card: https://www.[employer]/wegovy/savings-card.html Video on how to use the pen: https://www.Cashplay.co/about-wegovy/cjc-wg-wok-gvp-yyoere-vzd.html Starting WEGOVY?: Go to [employer] Logic to watch a video on how to administer the medication Please read through all of the information below before starting the medication. Dosing instructions: 0.25 mg weekly x 4 weeks 0.5 mg weekly x 4 weeks 1.0 mg weekly x 4 weeks 1.7 mg weekly x 4 weeks 2.4 mg weekly going forward Your provider may slow down this dose escalation depending on your response to the medication and adverse effects. Each dose increase will require a new prescription. Injection Instructions: Step 1. Prepare for your injection. Supplies you will need to give your WEGOVY? injection: WEGOVY? pen 1 alcohol swab or soap and water 1 gauze pad or cotton ball 1 sharps disposable container for used WEGOVY? pens Wash your hands. Check your WEGOVY? pen. Do not use your WEGOVY? pen if: The pen appears to have been used or any part of the pen appears broken, for example if it has been dropped. The WEGOVY? medicine is not clear and colorless through the pen window. The expiration date (EXP) has passed. Contact Your [employer] at if your WEGOVY? pen fails any of these checks. Step 2. Choose your injection site. You may inject into your upper legs (front of the thighs) or lower stomach (keep 2 inches away from your belly button). Another person may give the injection in the upper arm. Do not inject into an area where the skin is tender, bruised, red, or hard. Avoid injecting into areas with scars or stretch bowman. You may inject in the same body area each week, but make sure it is not in the same spot each time. Clean the injection site with an alcohol swab or soap and water. Do not touch the injection site after cleaning. Injection Step 3. Remove pen cap. Pull the pen cap straight off your pen The needle is covered by the needle cover and the needle will not be seen. Do not remove the pen cap until you are ready to inject. Do not touch or push on the needle cover. You could get a needle stick injury. Step 4. Inject WEGOVY?. The dose of WEGOVY? is already set on your pen. Your WEGOVY? injection will begin when the needle cover is pressed against your skin. Push the pen firmly against your skin until the yellow bar has stopped moving. If the yellow bar does not start moving, press the pen more firmly against your skin. You will hear 2 clicks during the injection. Click 1: the injection has started. Click 2: the injection is ongoing. Keep holding for a few seconds until yellow bar stops moving. Yellow bar has stopped moving. The injection is complete. Lift the pen slowly. What if blood appears after injection? If blood appears at the injection site, press the site lightly with a gauze pad or cotton ball. Step 5. Throw away (dispose of) pen. Your WEGOVY? pen is for 1 time use only. Safely dispose of the WEGOVY? pen right away after each use. Put the used WEGOVY? pen in an FDA-cleared sharps disposal container right away after use. Do not throw away (dispose of) the pen in your household trash. If you do not have an FDA-cleared sharps disposal container, you may use a household container that is: made of a heavy-duty plastic, able to be closed with a tight-fitting, puncture-resistant lid, without sharps being able to come out, upright and stable during use, leak-resistant, and properly labeled to warn of hazardous waste inside the container. When your sharps disposal container is almost full, you will need to follow your community guidelines for the right way to dispose of your sharps disposal container. There may be state or local laws about how you should throw away used needles and syringes. For more information about safe sharps disposal, and for specific sharps disposal in the state that you live in, go to the FDA's website at http://www.fda.gov/safesharpsdisposal. Do not reuse the pen. Do not recycle the pen or sharps disposal container, or throw them into household trash. Important: Keep your WEGOVY? pen, sharps disposal container and all medicines out of the reach of children. Additional important information: Store the WEGOVY? pen in the refrigerator between 36?F to 46?F. If needed, before removing the pen cap, WEGOVY? can be stored from 46?F to 86?F in the original carton for up to 28 days. Keep WEGOVY? in the original carton to protect it from light. Do not freeze. Throw away the pen if WEGOVY? has been frozen, has been exposed to light or temperatures above 86?For has been out of the refrigerator for 28 days or longer. Inject WEGOVY on the same day of the week, at any time of day. If you need to change the day of the week, you may do so as long as your last dose of WEGOVY? was given 2 or more days before. If you miss a dose of WEGOVY? and the next scheduled dose is more than 2 days away (48 hours), take the missed dose as soon as possible. If you miss a dose of WEGOVY? and the next schedule dose is less than 2 days away (48 hours), do not administer the dose. Take your next dose on the regularly scheduled day. If you miss doses of WEGOVY? for more than 2 weeks, take your next dose on the regularly scheduled day or call your healthcare provider to talk about how to restart your treatment. You can take WEGOVY? with or without food. If you take too much WEGOVY?, you may have severe nausea, severe vomiting and severe low blood sugar. Call your healthcare provider or go to the nearest hospital emergency room right away if you experience any of these symptoms. If you have type 2 diabetes, please monitor your blood sugar closely during WEGOVY treatment. Side effects to watch out for: Nausea/vomiting, constipation, diarrhea, heartburn, increased heart rate, fatigue, headache, and rarely, suicidal thoughts. With this medication, there is a slightly increased risk of pancreatitis and gallstones. Please notify me or seek immediate medical attention if you experience any of the above. Helpful tips for managing nausea on Wegovy Nausea is a common side effect when first starting Wegovy?. If you experience nausea, be sure to connect with your health care provider. He or she will offer guidance on ways to manage it, which may include: Eat bland, low-fat foods, like crackers, toast and rice Eat foods that contain water, like soups and gelatin Avoid lying down after you eat Go outdoors for fresh air Eat more slowly Copied from https://www.Cashplay.co/ Allergies As of Date: 12/21/2023 Noted Allergy Reaction CATS 2011 7 - Swelling Comments: rash Date Reviewed: 12/21/2023 Reviewed by: Jennifer Ratliff APRN.COMMERCIAL CRABBER - Fully Assessed Reason for Visit: Weight Management [3933] Primary Visit Diagnosis:Gastroesophageal reflux disease without esophagitis [K21.9] Other Visit Diagnoses:DRE (obstructive sleep apnea) [G47.33] Moderate persistent asthma without complication [J45.40] Fatty liver [K76.0] Arthritis of knee [M17.10] Hyperinsulinemia [E16.1] Class 3 severe obesity with serious comorbidity and body mass index (BMI) of 50.0 to 59.9 in adult, unspecified obesity type (HCC) [E66.813, E66.01, Z68.43] Order(s):semaglutide, weight loss, (WEGOVY) 0.25 mg/0.5 mL pen injectorInject 0.5 mL subcutaneously one time a week for 28 days.Disp: 2 mLRfl: 0 metFORMIN ER (GLUCOPHAGE XR) 500 mg 24 hr tabletTake 2 tablets by mouth daily with dinner.Disp: 180 tabletRfl: 1 Prescriptions as of 12/21/2023 - cyanocobalamin (VITAMIN B-12) 1,000 mcg tab Take 1,000 mcg by mouth once daily. - cholecalciferol (VITAMIN D-3) 400 unit tab Take 400 Units by mouth once daily. - semaglutide, weight loss, (WEGOVY) 0.25 mg/0.5 mL pen injector Inject 0.5 mL subcutaneously one time a week for 28 days. - metFORMIN ER (GLUCOPHAGE XR) 500 mg 24 hr tablet Take 2 tablets by mouth daily with dinner. - mometasone-formoterol (DULERA) 200-5 mcg/actuation inhaler Inhale 2 Puffs as instructed two times a day. - loratadine (CLARITIN) 10 mg tablet Take 1 tablet by mouth once daily as needed. FOR ALLERGY SYMPTOMS - montelukast (SINGULAIR) 10 mg tablet take 1 tablet by mouth once daily at bedtime - DULoxetine (CYMBALTA) 20 mg capsule Take 1 capsule by mouth once daily. - albuterol HFA (PROVENTIL HFA, VENTOLIN HFA) 90 mcg/actuation inhaler INHALE 2 PUFFS BY MOUTH EVERY 6 HOURS NEEDED FOR SHORTNESS OF BREATH AND WHEEZING - omeprazole (PRILOSEC) 20 mg capsule TAKE TWO CAPSULES BY MOUTH ONCE DAILY BEFORE BREAKFAST - buPROPion XL (WELLBUTRIN XL) 300 mg 24 hr tablet Take 1 tablet by mouth once daily. - rOPINIRole (REQUIP) 0.5 mg tablet Take one tab 30-45 mi prior to bed for a wee then go to taking two before bed. - celecoxib (CELEBREX) 200 mg capsule Take 1 capsule by mouth once daily. - Nebulizer Accessories kit Provide 1 kit. - albuterol (PROVENTIL) 2.5 mg /3 mL (0.083 %) nebulizer solution Use 3 mL via nebulizer every 4 hours as needed for wheezing/shortness of breath. Use over 5-15minutes. - fluticasone (FLONASE) 50 mcg/actuation nasal spray Use 1 [place] in each nostril once daily. - promethazine (PHENERGAN) 25 mg tablet Take 1 tablet by mouth every 6 hours as needed. - ProAir RespiClick 90 mcg/actuation breath activated (albuterol sulfate) Inhale 2 Puffs as instructed every 6 hours as needed. Problem List As Of Date 12/21/2023 Noted Resolved Shortness of breath [R06.02] 01/13/2011 Pneumonia, organism unspecified [J18.9] 07/15/2006 01/13/2011 Acute respiratory failure [J96.00] 07/15/2006 01/13/2011 ACUTE URI NOS [J06.9] 08/07/2007 09/10/2008 Gastroesophageal reflux disease without esophag*09/10/2008 Allergic rhinitis [J30.9] 09/10/2008 Moderate persistent asthma without complication*12/11/2008 Environmental allergies [Z91.09] Obesity, Class III, BMI >= 40 (morbid obesity) *12/03/2016 Irritable mood [R45.4] 03/04/2018 Post menopausal syndrome [N95.1] 03/04/2018 Tonsil asymmetry [J35.8] 03/04/2018 Encounter for screening for diabetes mellitus [*03/04/2018 Well adult exam [Z00.00] 09/01/2018 Medication management [Z79.899] 09/01/2018 Arthritis of knee [M17.10] 10/30/2020 Restless leg syndrome [G25.81] 10/30/2020 COVID-19 virus infection [U07.1] 10/14/2021 Fatty liver [K76.0] 01/04/2022 Liver cyst [K76.89] 01/08/2022 Situational depression [F43.21] 09/28/2022 DRE (obstructive sleep apnea) [G47.33] 11/01/2023 Class 3 severe obesity with serious comorbidity*12/21/2023 Hyperinsulinemia [E16.1] 12/21/2023 Other instructions from your clinician: - Eat primarily whole foods. Limit carbs, especially processed carbs. Eat - Meat, vegetables and fruits with skin on if possible, eggs, cheese. - Do not drink your calories - 30 grams of protein for your first meal of the day decreases your hunger during the day by up to 40 %. Options include: Premier Protein or generic 30 gm protein 1 gm sugar or 5 eggs or 2-3 eggs and some unbreaded meat and/or cheese. No fruit, vegetables, bread, grain, yogurt, Smoothies, etc. - Walk for 15 minutes immediately after meal B - 30 gm protein shake or 2-3 eggs and some unbreaded meat and/or cheese. S - veg with Ranch/dip or cheese or celery with 1-2 T PB if hungry L - 4 oz meat or less with yogurt or cottage cheese and fruit/veg S - same as above if hungry D - 4 oz meat with whole foods potato/sweet potato/pasta/rice/quinoa/corn/cortes beans/peas/legumes/fruit - eat skins if you can and vegetables. S - as above if hungry Mozambican yogurt Full Fat Mozambican Yogurt 1 cup - 20.4g protein AND 9.1g carb 2% Mozambican Yogurt 1 cup - 22.7g protein AND 9.1g carb 0% (fat-free) Moz[place]ican Yogurt - 1 cup 24g protein AND 9.3g carb Aldi Protein Moz[place]ican yogurt single svg - 15g protein AND 7g carb Chobani Zero Sugar single svg: - 12g protein AND 5g carb Dannon Mozambican Light + Fit 1 single svg - 12g protein AND 9g carb Oikos Pro single svg - 20g protein AND 8g carb Oikos Triple Zero Mozamb[place] Nonfat Yogurt 1 single svg - 15g protein AND 7g carb :ratio, KETO Friendly Dairy Snack 1 single svg - 15g protein AND 2g carb :ratio Protein 1 single svg - 25g protein AND 8g carb Two Good Lowfat Mozambican Yogurt, [place], Lower Sugar - 12g protein AND 2g carb Yoplait Protein 1 single svg 15gm protein AND 5gm carb Dairy Free - [place] Evarts unsweetened Mozambican almond/soy 15 gm protein AND 3 gm carb High Protein Snack Ideas 1. Jerky 2. [place] mix without dried fruit 3. Gail roll-ups 4. Mozambican yogurt 5. Veggies and yogurt dip 6. Tuna 7. Hard-boiled eggs 8. Peanut butter with celery 9. Cheese slices/ Cheese Stick 10. Handful of almonds, peanuts or walnuts 11. Cottage Cheese 12. Beef sticks 13. Protein bars 14. Canned [place] 15. Pumpkin seeds 16. Nut butter 17. Protein shakes 18. Avocado and chicken salad 19. Egg muffins 20. Leftover protein or lunch meat 21. 1/2 c blended cottage cheese or Mozambican yogurt with dry ranch/Mrs. Dash/herb seasoning mix to make protein dip 22. 1/2 c blended cottage cheese with 1 Tbsp sugar-free dry cheesecake pudding mix 12g protein 10 carb 23. Pudding - 1 30 gm protein shake with 1/2 pkg sugar-free pudding 4 svgs - 7.8 gm protein, 5 carb each svg 24. SF Sunkist or Root Beer with 1-2 Tablespoons heavy whipping cream 25. Mini frozen dessert bites - layer protein yogurt, skinny syrup and crushed nuts and freeze SEMAGLUTIDE 2.4mg (WEGOVY) Please keep medication refrigerated* If needed, Wegovy? can be kept outside of the refrigerator with the pen cap still on for up to 28 days. Unused pens that are stored in the fridge are safe to use up until their expiry date. How Does Wegovy Work? Wegovy? works by mimicking a hormone that targets areas of the brain involved in regulating appetite and food intake. This can help you eat less, which can lead to weight loss. How much weight can I lose on Wegovy? In a 68-week medical study of 1,961 adults living with obesity or excess weight with a related medical problem, adults lost ~35 lbs (or ~15% body weight). People taking placebo lost an average of 6 lbs (or ~2.5% body weight). The average starting weight for both groups was ~232 lbs. How soon can I expect to lose weight with Wegovy?? People respond to medicines differently, so there is no set time for when you can expect to see results with Wegovy?. Ask your health care provider about what might be a realistic expectation for you. What are the most common side effects of Wegovy?? The most common side effects of Wegovy? may include: nausea, diarrhea, vomiting, constipation, stomach (abdomen) pain, headache, tiredness (fatigue), upset stomach, dizziness, feeling bloated, belching, gas, stomach flu, and heartburn. Can I travel with Wegovy?? It is possible to travel with your Wegovy? pen: When traveling by air, keep your Wegovy? pen with you or in your carry-on, as it may freeze in the baggage compartment. Be sure to check with the airline to see if they have any specific baggage rules. If needed, Wegovy? may be stored between 46?F and 86?F in the original carton for up to 28 days. How often is Wegovy? taken? Wegovy? is taken once a week, any time of day, with or without food. (Try taking it at night at first) Can I change the day or time when I take Wegovy?? Take Wegovy? 1 time each week, on the same day each week, at any time of the day. You may change the day of the week you take Wegovy? as long as your last dose was given 2 or more days before. What should I do if I have missed a dose of Wegovy?? If you miss a dose of Wegovy? and the next scheduled dose is more than 2 days away (48 hours), take the missed dose as soon as possible. If you miss a dose of Wegovy? and the next scheduled dose is less than 2 days away (48 hours), do not administer the dose. Take your next dose on the regularly scheduled day. If you miss doses of Wegovy? for more than 2 weeks, take your next dose on the regularly scheduled day or call your health care provider to talk about how to restart your treatment. What if I?m nervous at the thought of injecting myself? If you sign up for WeGoTogether?, one of our coaches can walk you through the injection process. You may also refer to the Wegovy? Instructions for Use for full instructions. How can I dispose of my used Wegovy? pens? It?s important to properly dispose of your used Wegovy? pens. Do not throw the pen away in your household trash. Instead, use an FDA-cleared sharps disposal container or a sturdy household container with a tight-fitting lid, like a heavy-duty plastic container. Other requirements include puncture resistant, upright and stable during use, leak resistant and properly labled. Further Questions? You can also always call a [employer]? Environmental Field Technician at [phone]-[employer] ([facility]). Or see the resources below. Copied from https://www.Cashplay.co/ Please visit the website below for the medication guide. https://www.Cashplay.co/ Link to savings card: https://DailyObjects.com/[employer] Group/savings-card.html Video on how to use the pen: https://www.Cashplay.co/about-wegovy/xwk-ec-kia-hna-wseftc-ept.html Starting WEGOVY?: Go to www.Cashplay.co to watch a video on how to administer the medication Please read through all of the information below before starting the medication. Dosing instructions: 0.25 mg weekly x 4 weeks 0.5 mg weekly x 4 weeks 1.0 mg weekly x 4 weeks 1.7 mg weekly x 4 weeks 2.4 mg weekly going forward Your provider may slow down this dose escalation depending on your response to the medication and adverse effects. Each dose increase will require a new prescription. Injection Instructions: Step 1. Prepare for your injection. Supplies you will need to give your WEGOVY? injection: WEGOVY? pen 1 alcohol swab or soap and water 1 gauze pad or cotton ball 1 sharps disposable container for used WEGOVY? pens Wash your hands. Check your WEGOVY? pen. Do not use your WEGOVY? pen if: The pen appears to have been used or any part of the pen appears broken, for example if it has been dropped. The WEGOVY? medicine is not clear and colorless through the pen window. The expiration date (EXP) has passed. Contact Your [facility] at if your WEGOVY? pen fails any of these checks. Step 2. Choose your injection site. You may inject into your upper legs (front of the thighs) or lower stomach (keep 2 inches away from your belly button). Another person may give the injection in the upper arm. Do not inject into an area where the skin is tender, bruised, red, or hard. Avoid injecting into areas with scars or stretch bowman. You may inject in the same body area each week, but make sure it is not in the same spot each time. Clean the injection site with an alcohol swab or soap and water. Do not touch the injection site after cleaning. Injection Step 3. Remove pen cap. Pull the pen cap straight off your pen The needle is covered by the needle cover and the needle will not be seen. Do not remove the pen cap until you are ready to inject. Do not touch or push on the needle cover. You could get a needle stick injury. Step 4. Inject WEGOVY?. The dose of WEGOVY? is already set on your pen. Your WEGOVY? injection will begin when the needle cover is pressed against your skin. Push the pen firmly against your skin until the yellow bar has stopped moving. If the yellow bar does not start moving, press the pen more firmly against your skin. You will hear 2 clicks during the injection. Click 1: the injection has started. Click 2: the injection is ongoing. Keep holding for a few seconds until yellow bar stops moving. Yellow bar has stopped moving. The injection is complete. Lift the pen slowly. What if blood appears after injection? If blood appears at the injection site, press the site lightly with a gauze pad or cotton ball. Step 5. Throw away (dispose of) pen. Your WEGOVY? pen is for 1 time use only. Safely dispose of the WEGOVY? pen right away after each use. Put the used WEGOVY? pen in an FDA-cleared sharps disposal container right away after use. Do not throw away (dispose of) the pen in your household trash. If you do not have an FDA-cleared sharps disposal container, you may use a household container that is: made of a heavy-duty plastic, able to be closed with a tight-fitting, puncture-resistant lid, without sharps being able to come out, upright and stable during use, leak-resistant, and properly labeled to warn of hazardous waste inside the container. When your sharps disposal container is almost full, you will need to follow your community guidelines for the right way to dispose of your sharps disposal container. There may be state or local laws about how you should throw away used needles and syringes. For more information about safe sharps disposal, and for specific sharps disposal in the state that you live in, go to the FDA's website at http://www.fda.gov/safesharpsdisposal. Do not reuse the pen. Do not recycle the pen or sharps disposal container, or throw them into household trash. Important: Keep your WEGOVY? pen, sharps disposal container and all medicines out of the reach of children. Additional important information: Store the WEGOVY? pen in the refrigerator between 36?F to 46?F. If needed, before removing the pen cap, WEGOVY? can be stored from 46?F to 86?F in the original carton for up to 28 days. Keep WEGOVY? in the original carton to protect it from light. Do not freeze. Throw away the pen if WEGOVY? has been frozen, has been exposed to light or temperatures above 86?For has been out of the refrigerator for 28 days or longer. Inject WEGOVY on the same day of the week, at any time of day. If you need to change the day of the week, you may do so as long as your last dose of WEGOVY? was given 2 or more days before. If you miss a dose of WEGOVY? and the next scheduled dose is more than 2 days away (48 hours), take the missed dose as soon as possible. If you miss a dose of WEGOVY? and the next schedule dose is less than 2 days away (48 hours), do not administer the dose. Take your next dose on the regularly scheduled day. If you miss doses of WEGOVY? for more than 2 weeks, take your next dose on the regularly scheduled day or call your healthcare provider to talk about how to restart your treatment. You can take WEGOVY? with or without food. If you take too much WEGOVY?, you may have severe nausea, severe vomiting and severe low blood sugar. Call your healthcare provider or go to the nearest hospital emergency room right away if you experience any of these symptoms. If you have type 2 diabetes, please monitor your blood sugar closely during WEGOVY treatment. Side effects to watch out for: Nausea/vomiting, constipation, diarrhea, heartburn, increased heart rate, fatigue, headache, and rarely, suicidal thoughts. With this medication, there is a slightly increased risk of pancreatitis and gallstones. Please notify me or seek immediate medical attention if you experience any of the above. Helpful tips for managing nausea on Wegovy Nausea is a common side effect when first starting Wegovy?. If you experience nausea, be sure to connect with your health care provider. He or she will offer guidance on ways to manage it, which may include: Eat bland, low-fat foods, like crackers, toast and rice Eat foods that contain water, like soups and gelatin Avoid lying down after you eat Go outdoors for fresh air Eat more slowly Copied from https://www.Cashplay.co/ Prescriptions ordered this encounter Disp Refills Start End SEMAGLUTIDE (WEIGHT LOSS) 0.25 MG/0.* 2 mL 0 12/21/2023 01/18/2024 Route: SUBCUTANEOUS Sig: Inject 0.5 mL subcutaneously one time a week for 28 days. METFORMIN ER 500 MG TABLET,EXTENDED * 180 * 1 12/21/2023 06/18/2024 Route: ORAL Sig: Take 2 tablets by mouth daily with dinner. Medications Discontinued During This Encounter Prescriptions - metFORMIN ER (GLUCOPHAGE XR) 500 mg 24 hr tablet (Discontinued) Take 1 tablet by mouth daily with dinner. Disposition: Return in about 4 months (around 04/20/2024) for wt mgt F/up. Follow-up and Disposition History for Encounter Date Provider Department Center 12/21/2023 [id number] RATLIFF Encounter Status:Closed by JENNIFER RATLIFF on 12/21/23 CNPN Observed: 12/21/2023 12:00 AM Status: COMPLETED Source: [facility] Telephone (CARLA) CINTHYA BONE ([id number]) 1970 F NFR Date Time Provider Department 12/21/23 JENNIFER RATLIFF During your visit today, we recorded the following information about you: Javi Diggs MA 12/21/2023 2:36 PM Signed Submitted PA for Wegovy, received response that it was denied. Reason for denial: [facility] has a drug exception process that allows certain drugs to be covered that are not covered by the [facility] formulary. Exceptions include if the patient is currently using medications that are helpful to control the risk of cardiovascular events; such as Lisinopril, Simvastatin, Clopidrogrel. Another exception is if the patient has one of the following conditions: a prior myocardial infarction, stroke, or symptomatic peripheral arterial disease. Please advise. ROCK Granados Amy, APRN.CNP 12/22/2023 6:49 AM Signed [facility] message sent to pt. Jennifer Ratliff APRN.CNP Allergies As of Date: 12/21/2023 Noted Allergy Reaction CATS 2011 7 - Swelling Comments: rash Date Reviewed: 12/21/2023 Reviewed by: Jennifer Ratliff APRN.CNP - Fully Assessed Reason for Visit: Insurance Authorization [[id number]] Prescriptions as of 12/22/2023 - cyanocobalamin (VITAMIN B-12) 1,000 mcg tab Take 1,000 mcg by mouth once daily. - cholecalciferol (VITAMIN D-3) 400 unit tab Take 400 Units by mouth once daily. - semaglutide, weight loss, (WEGOVY) 0.25 mg/0.5 mL pen injector Inject 0.5 mL subcutaneously one time a week for 28 days. - metFORMIN ER (GLUCOPHAGE XR) 500 mg 24 hr tablet Take 2 tablets by mouth daily with dinner. - mometasone-formoterol (DULERA) 200-5 mcg/actuation inhaler Inhale 2 Puffs as instructed two times a day. - loratadine (CLARITIN) 10 mg tablet Take 1 tablet by mouth once daily as needed. FOR ALLERGY SYMPTOMS - montelukast (SINGULAIR) 10 mg tablet take 1 tablet by mouth once daily at bedtime - DULoxetine (CYMBALTA) 20 mg capsule Take 1 capsule by mouth once daily. - albuterol HFA (PROVENTIL HFA, VENTOLIN HFA) 90 mcg/actuation inhaler INHALE 2 PUFFS BY MOUTH EVERY 6 HOURS NEEDED FOR SHORTNESS OF BREATH AND WHEEZING - omeprazole (PRILOSEC) 20 mg capsule TAKE TWO CAPSULES BY MOUTH ONCE DAILY BEFORE BREAKFAST - buPROPion XL (WELLBUTRIN XL) 300 mg 24 hr tablet Take 1 tablet by mouth once daily. - rOPINIRole (REQUIP) 0.5 mg tablet Take one tab 30-45 mi prior to bed for a wee then go to taking two before bed. - celecoxib (CELEBREX) 200 mg capsule Take 1 capsule by mouth once daily. - Nebulizer Accessories kit Provide 1 kit. - albuterol (PROVENTIL) 2.5 mg /3 mL (0.083 %) nebulizer solution Use 3 mL via nebulizer every 4 hours as needed for wheezing/shortness of breath. Use over 5-15minutes. - fluticasone (FLONASE) 50 mcg/actuation nasal spray Use 1 [place] in each nostril once daily. - promethazine (PHENERGAN) 25 mg tablet Take 1 tablet by mouth every 6 hours as needed. - ProAir RespiClick 90 mcg/actuation breath activated (albuterol sulfate) Inhale 2 Puffs as instructed every 6 hours as needed. Problem List As Of Date 12/21/2023 Noted Resolved Shortness of breath [R06.02] 01/13/2011 Pneumonia, organism unspecified [J18.9] 07/15/2006 01/13/2011 Acute respiratory failure [J96.00] 07/15/2006 01/13/2011 ACUTE URI NOS [J06.9] 08/07/2007 09/10/2008 Gastroesophageal reflux disease without esophag*09/10/2008 Allergic rhinitis [J30.9] 09/10/2008 Moderate persistent asthma without complication*12/11/2008 Environmental allergies [Z91.09] Obesity, Class III, BMI >= 40 (morbid obesity) *12/03/2016 Irritable mood [R45.4] 03/04/2018 Post menopausal syndrome [N95.1] 03/04/2018 Tonsil asymmetry [J35.8] 03/04/2018 Encounter for screening for diabetes mellitus [*03/04/2018 Well adult exam [Z00.00] 09/01/2018 Medication management [Z79.899] 09/01/2018 Arthritis of knee [M17.10] 10/30/2020 Restless leg syndrome [G25.81] 10/30/2020 COVID-19 virus infection [U07.1] 10/14/2021 Fatty liver [K76.0] 01/04/2022 Liver cyst [K76.89] 01/08/2022 Situational depression [F43.21] 09/28/2022 DRE (obstructive sleep apnea) [G47.33] 11/01/2023 Class 3 severe obesity with serious comorbidity*12/21/2023 Hyperinsulinemia [E16.1] 12/21/2023 Encounter Status:Closed by JENNIFER RATLIFF on 12/22/23 CNCO Observed: 12/16/2023 12:00 AM Status: COMPLETED Source: [facility] Letter Text CNPN Observed: 12/07/2023 12:00 AM Status: COMPLETED Source: [facility] Telephone (OBGYWM) CINTHYA BONE ([id number]) 1970 F NFR Date Time Provider Department 12/07/23 JENNIFER RATLIFF During your visit today, we recorded the following information about you: Lillie Pablo, RN 12/07/2023 11:26 AM Signed [facility] called. Patient has her sleep study scheduled for Tuesday, 12/08. Even with the addendum of office notes, they received a denial. Insurance is requesting a Peer to Peer with provider. Hospital is faxing over the information to us. They will keep her scheduled in case we can get this approved for her before Tuesday. MONE Douglas Amy, APRN.CNP 12/07/2023 12:48 PM Signed Please let me know when information is received. TAMMY Shannon Jennifer, RN 12/07/2023 1:10 PM Signed 2011 sleep study and peer to peer information to to review. MONE Douglas Jennifer, RN 12/08/2023 8:30 AM Signed Left message with Sleep Center @ [facility]. AG is attempting the peer to peer. When she puts in the reference number on the [employer] site it makes her choose from [facility], [employer], [employer], or other. When she picks other - it takes her back to the main page. Which selection is it? MONE Douglas Jennifer, RN 12/08/2023 11:25 AM Signed Spoke with hospital who spoke with their pre cert department. The recommended calling [employer] [phone]. This is their phone number for authorizations. MONE Douglas Amy, APRN.CNP 12/08/2023 12:52 PM Signed I called and left a message with dates and times of current availability. Jennifer Ratliff APRN.Hanna Medellin RN 12/08/2023 1:[address] [facility] peer to peer called back. A peer to peer is now unable to be done because the open timeframe has ended. The denial was sent out on 11/23/23 and the last day to submit a peer to peer was 12/06/23. She said the only option now was to complete an appeal. To see what needs done with that we have to call customer care at [phone]. MONE Arora Amy, APRN.CNP 12/08/2023 2:25 PM Signed Please call for requirements and let [facility] know so they can cancel pt's appointment for tomorrow. Jennifer Ratliff APRN.Hanna Medellin RN 12/08/2023 2:43 PM Signed Do you have the reference or case number? That's the only reason I didn't call to check at first. Thanks! MONE Arora Amy, APRN.DAKOTA 12/09/2023 7:12 AM Signed Reference # [id number] Fay Bloom RN 12/12/2023 4:48 PM Signed Called MMO @ Advised that we can submit appeal and fax to . Reference # [id number] Service authorization # [id number] for level 1 appeal Information needed included in appeal: Documentation for home PSG or sleep study/Why Pt cannot complete in home, any documentation showing Pt's other known medical conditions. MONE Ness Annalee, LPN 12/16/2023 12:07 PM Signed Appeal letter faxed. Jennifer Ratliff APRN.DAKOTA 01/10/2024 12:33 PM Signed I have not. Jennifer Ratliff APRN.Soraida Cabrera LPN 01/13/2024 12:32 PM Addendum Nurse called [facility] [place]. Appeal was approved on 12/19/23. Call reference: [id number] Jennifer Ratliff APRN.DAKOTA 01/13/2024 3:49 PM Signed Please notify [facility]. Jennifer Ratliff APRN.Soraida Cabrera LPN 01/13/2024 4:54 PM Signed [facility] sleep lab notified. Allergies As of Date: 12/07/2023 Noted Allergy Reaction CATS 2011 7 - Swelling Comments: rash Date Reviewed: 11/07/2023 Reviewed by: Mina Maher MD - Fully Assessed Reason for Visit: Peer To Peer Consultation [5685] Prescriptions as of 01/13/2024 - triamcinolone acetonide (KENALOG) 0.1 % cream Apply 1 application to affected area three times a day for 14 days. Apply sparingly to area for rash/itching. - predniSONE (DELTASONE) 10 mg tablet Take 4 tabs daily for 3 days, then 2 tabs daily for 3 days, then 1 tab daily for 3 days with food. - cyanocobalamin (VITAMIN B-12) 1,000 mcg tab Take 1,000 mcg by mouth once daily. - cholecalciferol (VITAMIN D-3) 400 unit tab Take 400 Units by mouth once daily. - semaglutide, weight loss, (WEGOVY) 0.25 mg/0.5 mL pen injector Inject 0.5 mL subcutaneously one time a week for 28 days. - metFORMIN ER (GLUCOPHAGE XR) 500 mg 24 hr tablet Take 2 tablets by mouth daily with dinner. - mometasone-formoterol (DULERA) 200-5 mcg/actuation inhaler Inhale 2 Puffs as instructed two times a day. - loratadine (CLARITIN) 10 mg tablet Take 1 tablet by mouth once daily as needed. FOR ALLERGY SYMPTOMS - montelukast (SINGULAIR) 10 mg tablet take 1 tablet by mouth once daily at bedtime - DULoxetine (CYMBALTA) 20 mg capsule Take 1 capsule by mouth once daily. - albuterol HFA (PROVENTIL HFA, VENTOLIN HFA) 90 mcg/actuation inhaler INHALE 2 PUFFS BY MOUTH EVERY 6 HOURS NEEDED FOR SHORTNESS OF BREATH AND WHEEZING - omeprazole (PRILOSEC) 20 mg capsule TAKE TWO CAPSULES BY MOUTH ONCE DAILY BEFORE BREAKFAST - buPROPion XL (WELLBUTRIN XL) 300 mg 24 hr tablet Take 1 tablet by mouth once daily. - rOPINIRole (REQUIP) 0.5 mg tablet Take one tab 30-45 mi prior to bed for a wee then go to taking two before bed. - celecoxib (CELEBREX) 200 mg capsule Take 1 capsule by mouth once daily. - Nebulizer Accessories kit Provide 1 kit. - albuterol (PROVENTIL) 2.5 mg /3 mL (0.083 %) nebulizer solution Use 3 mL via nebulizer every 4 hours as needed for wheezing/shortness of breath. Use over 5-15minutes. - fluticasone (FLONASE) 50 mcg/actuation nasal spray Use 1 [place] in each nostril once daily. - promethazine (PHENERGAN) 25 mg tablet Take 1 tablet by mouth every 6 hours as needed. - ProAir RespiClick 90 mcg/actuation breath activated (albuterol sulfate) Inhale 2 Puffs as instructed every 6 hours as needed. Problem List As Of Date 12/07/2023 Noted Resolved Shortness of breath [R06.02] 01/13/2011 Pneumonia, organism unspecified [J18.9] 07/15/2006 01/13/2011 Acute respiratory failure [J96.00] 07/15/2006 01/13/2011 ACUTE URI NOS [J06.9] 08/07/2007 09/10/2008 Gastroesophageal reflux disease without esophag*09/10/2008 Allergic rhinitis [J30.9] 09/10/2008 Moderate persistent asthma without complication*12/11/2008 Environmental allergies [Z91.09] Obesity, Class III, BMI >= 40 (morbid obesity) *12/03/2016 Irritable mood [R45.4] 03/04/2018 Post menopausal syndrome [N95.1] 03/04/2018 Tonsil asymmetry [J35.8] 03/04/2018 Encounter for screening for diabetes mellitus [*03/04/2018 Well adult exam [Z00.00] 09/01/2018 Medication management [Z79.899] 09/01/2018 Arthritis of knee [M17.10] 10/30/2020 Restless leg syndrome [G25.81] 10/30/2020 COVID-19 virus infection [U07.1] 10/14/2021 Fatty liver [K76.0] 01/04/2022 Liver cyst [K76.89] 01/08/2022 Situational depression [F43.21] 09/28/2022 DRE (obstructive sleep apnea) [G47.33] 11/01/2023 Encounter Status:Closed by SORAIDA CHILDS on 01/13/24 DAKOTAN Observed: 11/29/2023 12:00 AM Status: COMPLETED Source: [facility] Telephone (OBGYWM) CINTHYA BONE ([id number]) 1970 F NFR Date Time Provider Department 11/29/23 JENNIFER RATLIFF During your visit today, we recorded the following information about you: Lillie Pablo RN 11/29/2023 3:13 PM Signed Received a call from [facility] Sleep Study department. Patient's sleep study has been denied by her insurance. Upon review, the hospital believes that if you make an addendum to your 11/01/23 note, it could be approved. The notes from 10/31 state: Ordered but did not have insurance at the time so did get equipment due to cost. [facility] recommends the addendum to note that since the 2011 Sleep study referral, patient has more comorbidities and her BMI went from 30 to 52. Received fax from hospital too that it was denied. MONE Douglas Amy, APRN.CNP 11/29/2023 8:11 PM Signed Addendum:Since 2011 sleep study referral, patient has developed more co-morbidities and her BMI has increased from 30 to 52. Jennifer Ratliff APRN.Lillie Bynum RN 11/30/2023 9:07 AM Signed Left detailed message for [facility] at [facility] that AG documented an addendum for the 11/01/23 visit. Do they need a copy of this for the referral since it was originally denied? MONE Douglas Tara, RN 11/30/2023 11:06 AM Signed OV with addendum faxed to [facility] sleep study department at [phone]. [facility] states will see if they can get appeal denial for sleep study with the addendum attached. Fay Bloom RN Allergies As of Date: 11/29/2023 Noted Allergy Reaction CATS 2011 7 - Swelling Comments: rash Date Reviewed: 11/07/2023 Reviewed by: Mina Maher MD - Fully Assessed Reason for Visit: Insurance Authorization [1693] Prescriptions as of 12/01/2023 - mometasone-formoterol (DULERA) 200-5 mcg/actuation inhaler Inhale 2 Puffs as instructed two times a day. - loratadine (CLARITIN) 10 mg tablet Take 1 tablet by mouth once daily as needed. FOR ALLERGY SYMPTOMS - metFORMIN ER (GLUCOPHAGE XR) 500 mg 24 hr tablet Take 1 tablet by mouth daily with dinner. - montelukast (SINGULAIR) 10 mg tablet take 1 tablet by mouth once daily at bedtime - DULoxetine (CYMBALTA) 20 mg capsule Take 1 capsule by mouth once daily. - albuterol HFA (PROVENTIL HFA, VENTOLIN HFA) 90 mcg/actuation inhaler INHALE 2 PUFFS BY MOUTH EVERY 6 HOURS NEEDED FOR SHORTNESS OF BREATH AND WHEEZING - omeprazole (PRILOSEC) 20 mg capsule TAKE TWO CAPSULES BY MOUTH ONCE DAILY BEFORE BREAKFAST - buPROPion XL (WELLBUTRIN XL) 300 mg 24 hr tablet Take 1 tablet by mouth once daily. - rOPINIRole (REQUIP) 0.5 mg tablet Take one tab 30-45 mi prior to bed for a wee then go to taking two before bed. - celecoxib (CELEBREX) 200 mg capsule Take 1 capsule by mouth once daily. - Nebulizer Accessories kit Provide 1 kit. - albuterol (PROVENTIL) 2.5 mg /3 mL (0.083 %) nebulizer solution Use 3 mL via nebulizer every 4 hours as needed for wheezing/shortness of breath. Use over 5-15minutes. - fluticasone (FLONASE) 50 mcg/actuation nasal spray Use 1 [place] in each nostril once daily. - promethazine (PHENERGAN) 25 mg tablet Take 1 tablet by mouth every 6 hours as needed. - ProAir RespiClick 90 mcg/actuation breath activated (albuterol sulfate) Inhale 2 Puffs as instructed every 6 hours as needed. Problem List As Of Date 11/29/2023 Noted Resolved Shortness of breath [R06.02] 01/13/2011 Pneumonia, organism unspecified [J18.9] 07/15/2006 01/13/2011 Acute respiratory failure [J96.00] 07/15/2006 01/13/2011 ACUTE URI NOS [J06.9] 08/07/2007 09/10/2008 Gastroesophageal reflux disease without esophag*09/10/2008 Allergic rhinitis [J30.9] 09/10/2008 Moderate persistent asthma without complication*12/11/2008 Environmental allergies [Z91.09] Obesity, Class III, BMI >= 40 (morbid obesity) *12/03/2016 Irritable mood [R45.4] 03/04/2018 Post menopausal syndrome [N95.1] 03/04/2018 Tonsil asymmetry [J35.8] 03/04/2018 Encounter for screening for diabetes mellitus [*03/04/2018 Well adult exam [Z00.00] 09/01/2018 Medication management [Z79.899] 09/01/2018 Arthritis of knee [M17.10] 10/30/2020 Restless leg syndrome [G25.81] 10/30/2020 COVID-19 virus infection [U07.1] 10/14/2021 Fatty liver [K76.0] 01/04/2022 Liver cyst [K76.89] 01/08/2022 Situational depression [F43.21] 09/28/2022 DRE (obstructive sleep apnea) [G47.33] 11/01/2023 Encounter Status:Closed by LILLIE PABLO on 12/01/23 ALLERGIES DATE TYPE / CODE NAME / CODE REACTION SEVERITY SOURCE 2011 Animal/[id number](SNO MED CT) CATS SWELLING Low [facility] ENCOUNTERS ADMIT/DISCHARGE ACCOUNT NUMBER ADMITTING ENCOUNTER CLASS LOC AT[facility] S[id number]/24[facility]2024[id number] 10/09/2024/ 5 [id number] [facility]WMO[facility] 10/09/2024/ 5 [id number] [facility]WOLB [facility] 10/09/2024/ 5 [id number] [facility]WOJES [facility] 09/24/2024/ 5 [id number] [facility]KEVIN [facility] 09/24/2024 [id number] [facility]:WODM [facility] 08/10/2024/ 5 [id number] [facility]:WMOB [facility] 07/17/2024/ 5 [id number] [facility]:WOPU [facility] 07/17/2024/ 5 [id number] [facility]:PLFHCW [facility] 07/17/2024/ 5 [id number] [facility]:PLFHCW [facility] 06/25/2024/ 5 [id number] [facility]:WOOR [facility] 06/25/2024 [id number] [facility]:WOR2 [facility] 06/07/2024/ 5 [id number] [facility]:WOLB [facility] 06/07/2024/ 5 [id number] [facility]:WOFM [facility] 06/06/2024/ 5 [id number] [facility] ing:WMOB [facility] 05/23/2024/ 5 [id number] [facility] ing:WOR2 [facility] 05/23/2024/ 5 [id number] [facility]:WOPU [facility] 05/19/2024/ 5 [id number] [facility]:WOUC [facility] 05/11/2024/ 5 [id number] [facility]:WOPT [facility] 04/27/2024/ 5 [id number] [facility]:WOFM [facility] 04/27/2024/ 5 [id number] [facility]:WOPT [facility] 04/26/2024/ 5 [id number] [facility]:WOL2 [facility] 04/26/2024/ 5 [id number] [facility] ing:WMOB [facility] 04/18/2024/ 5 [id number] [facility]WOPU [facility] 04/03/2024/ 5 [id number] [facility]:WOPO [facility] 04/03/2024/ 5 [id number] [facility]Build ing:WOR2 [facility] 03/12/2024/ 5 [id number] [facility]:WOOR [facility] 03/09/2024/ 5 [id number] [facility] ing:WOFM [facility] 02/28/2024/ 5 [id number] [facility]:WORG [facility] 02/28/2024/ 5 [id number] [facility] ing:WOFM [facility] 01/03/2024/ 4 [id number] [facility]:WOFM [facility] 12/24/2023/ 4 [id number] [facility] ing:WOUC [facility] 12/21/2023/ 4 [id number] [facility] HospitalBuild ing:WMOB [facility] PAYERS ENCOUNTER GUARANTOR PAYER SUBSCRIBER SOURCE 11/16/2024 Primary Insuranc e:[facility] MEDICAIDPolicy Number: [id number] Date:2722-75-28Pgsw Name:Michelle DELGADO: [id number] [place] [address] [facility] 11/16/2024 Primary Insuranc e:[employer] [facility] MEDICAIDPolicy Number: [id number] Date:6403-01-81Plok Name:Michelle CARNEYBYDOB: [id number] [place], [place] [address] [place] [address] 10/24/2024 Primary Insuranc e:[employer] MEDICAIDPolicy Number: [id number] Date:0526-21-29Rbof Name:Michelle Ojeda ROMMELBYDOB: [id number] [address] 10/09/2024 Primary Insuranc e:[employer] [employer] MEDICAIDPolicy Number: [id number] Date:8104-15-27Uzxi Name:Michelle Ojeda ROMMELBYDOB: [id number] [address] 10/09/2024 Primary Insuranc e:[employer] [employer] MEDICAIDPolicy Number: [id number] Date:0602-60-32Oste Name:Michelle Ojeda ROMMELBYDOB: [birth year]-06-23CFM393 [address] 10/09/2024 Primary Insuranc e:[employer] [employer] MEDICAIDPolicy Number: [id number] Date:8268-14-71Utzs Name:Michelle Ojeda ROMMELBYDOB: 6195-25-26JVR051 [address] 09/24/2024 Primary Insuranc e:[employer] [employer] MEDICAIDPolicy Number: [id number] Date:0186-45-40Bfzp Name:Michelle Ojeda ROMMELBYDOB: [id number] [address] 09/24/2024 Primary Insuranc e:[employer] MEDICAIDPolicy Number: [id number] Date:5952-53-99Wlbx Name:Michelle Ojeda ROMMELBYDOB: 1913-74-13NIB560 [address] 08/10/2024 Primary Insuranc e:MMO SUPERMED PPOPolicy Number: [id number] Date:0380-37-21Smvk Name:Arsenio Michael LIZANDRODOB: 1842-27-67RYS858 [address] 08/10/2024 Secondary Insurance:[place] P MEDICAIDPolicy Number: [id number] Date:1025-98-74Mikz Name:Michelle Ojeda ROMMELBYDOB: [id number] [address] 07/17/2024 Primary Insuranc e:MMO SUPERMED PPOPolicy Number: [id number] Date:6424-39-72Qhgb Name:Arsenio Michael LIZANDRODOB: [id number] [address] 07/17/2024 Secondary Insurance:[place] [employer] MEDICAIDPolicy Number: [id number] Date:8654-60-09Jpyq Name:Michelle Ojeda ROMMELBYDOB: [id number] [address] 07/17/2024 Primary Insuranc e:MMO SUPERMED PPOPolicy Number: [id number] Date:3565-79-83Xxua Name:Arsenio Michael ROMMELBYDOB: 7546-97-02GUR230 [address] 07/17/2024 Secondary Insurance:[place] [employer] MEDICAIDPolicy Number: [id number] Date:5668-02-12Enbe Name:Michelle Ojeda ROMMELBYDOB: 2180-45-71WWG082 [address] 07/17/2024 Primary Insuranc e:MMO SUPERMED PPOPolicy Number: [id number] Date:5380-58-59Gxhn Name:Arsenio Michael ROMMELBYDOB: 3324-01-35NOD282 [address] 07/17/2024 Secondary Insurance:[place] MEDICAIDPolicy Number: [id number] Date:8798-82-26Rcsr Name:Michelle Ojeda ROMMELBYDOB: 0927-60-35PYA799 [address] 06/25/2024 Primary Insuranc e:MMO SUPERMED PPOPolicy Number: [id number] Date:8954-10-52Fprm Name:Arsenio Michael ROMMELBYDOB: [id number] [address] 06/25/2024 Secondary Insurance:[place] [facility] MEDICAIDPolicy Number: [id number] Date:3576-11-14Fpay Name:Michelle Ojeda ROMMELBYDOB: 7890-28-02BXH332 [address] 06/25/2024 Primary Insuranc e:MMO SUPERMED PPOPolicy Number: [id number] Date:6721-26-33Wmby Name:Arsenio Michael LIZANDRODOB: 2480-41-22AFM746 [address] 06/25/2024 Secondary Insurance:[place] MEDICAIDPolicy Number: [id number] Date:4942-82-60Tkgp Name:Michelle Ojeda ROMMELBYDOB: 2954-13-58VKH483 [address] 06/07/2024 Primary Insuranc e:MMO SUPERMED PPOPolicy Number: [id number] Date:3228-64-77Qkzs Name:Arsenio Michael ROMMELBYDOB: 9750-90-10SLT215 [address] 06/07/2024 Secondary Insurance:[place] MEDICAIDPolicy Number: [id number] Date:0289-65-61Vopg Name:Michelle Ojeda ROMMELBYDOB: 0008-46-20DVJ299 [address] 06/07/2024 Primary Insuranc e:MMO SUPERMED PPOPolicy Number: [id number] Date:6430-11-05Egch Name:Arsenio Michael ANTONINOB: 3532-45-54RGF392 [address] 06/07/2024 Secondary Insurance:[facility] MEDICAIDPolicy Number: [id number] Date:9696-85-03Hopi Name:Michelle Ojeda ROMMELBYB: [id number] [address] 06/06/2024 Primary Insuranc e:MMO SUPERMED PPOPolicy Number: [id number] Date:6706-45-77Lcza Name:Arsenio Michael ANTONINOB: [id number] [address] 06/06/2024 Secondary Insurance:[facility] MEDICAIDPolicy Number: [id number] Date:4996-12-54Jpsp Name:Michelle Ojeda ANTONINOB: [id number] [address] 05/23/2024 Primary Insuranc e:MMO SUPERMED PPOPolicy Number: [id number] Date:9691-57-05Cged Name:Arsenio Michael ANTONINOB: [id number] [address] 05/23/2024 Secondary Insurance:[facility] MEDICAIDPolicy Number: [id number] Date:5743-57-23Lgcb Name:Michelle Ojeda LIZANDRODOB: 0871-58-83SBG299 [address] 05/23/2024 Primary Insuranc e:MMO SUPERMED PPOPolicy Number: [id number] Date:0565-14-84Yhea Name:Arsenio Michael ANTONINOB: [id number] [place] [address] 05/23/2024 Secondary Insurance:[facility] MEDICAIDPolicy Number: [id number] Date:4771-84-84Ltgn Name:Michelle CARNEYBYDOB: [id number] [place], [place] [address] [place] [address] 05/19/2024 Primary Insuranc e:MMO SUPERMED PPOPolicy Number: [id number] Date:1171-37-92Lqer Name:Arsenio CARNEYBYDOB: 1578-02-46HKU288 [address] 05/19/2024 Secondary Insurance:[facility] MEDICAIDPolicy Number: [id number] Date:8485-93-83Onup Name:Michelle Ojeda ROMMELBYDOB: 8635-45-38VQU512 [address] 05/11/2024 Primary Insuranc e:MMO SUPERMED PPOPolicy Number: [id number] Date:0513-44-07Krgr Name:Arsenio BONEDOB: 0784-86-31DJR528 [address] 05/11/2024 Secondary Insurance:[facility] MEDICAIDPolicy Number: [id number] Date:1211-25-08Jpmx Name:Michelle CARNEYBYDOB: 7131-85-89BBZ235 [address] 04/27/2024 Primary Insuranc e:MMO SUPERMED PPOPolicy Number: [id number] Date:0740-18-75Tphq Name:Arsenio CARNEYBYDOB: 0073-66-44GFU809 [address] 04/27/2024 Secondary Insurance:[facility] MEDICAIDPolicy Number: [id number] Date:5875-68-99Cdec Name:Michelle Ojeda ROMMELBYDOB: 2443-16-28QED161 [address] 04/27/2024 Primary Insuranc e:MMO SUPERMED PPOPolicy Number: [id number] Date:6097-47-16Yoff Name:Arsenio CARNEYBYDOB: 7561-31-68SWE660 [address] 04/27/2024 Secondary Insurance:[place] MEDICAIDPolicy Number: [id number] Date:9554-71-62Wpkx Name:Michelle Ojeda ROMMELBYDOB: [id number] [address] 04/26/2024 Primary Insuranc e:MMO SUPERMED PPOPolicy Number: [id number] Date:4196-58-88Fakk Name:Arsenio Michael ROMMELBYDOB: 5938-83-76QHV247 [address] 04/26/2024 Secondary Insurance:[place] MEDICAIDPolicy Number: [id number] Date:8332-33-80Rhno Name:Michelle Ojeda ROMMELBYDOB: 5402-18-79NZJ822 [address] 04/26/2024 Primary Insuranc e:MMO SUPERMED PPOPolicy Number: [id number] Date:1677-91-68Yysb Name:Arsenio RACHNA H LIZANDRODOB: 3689-60-56IXJ209 [address] 04/26/2024 Secondary Insurance:[place] MEDICAIDPolicy Number: [id number] Date:9956-57-08Suny Name:Michelle Ojeda ROMMELBYDOB: [id number] [address] 04/18/2024 Primary Insuranc e:MMO SUPERMED PPOPolicy Number: [id number] Date:4121-61-01Hfuf Name:Arsenio RACHNA H LIZANDRODOB: 5541-20-88IPF781 [address] 04/18/2024 Secondary Insurance:[place] MEDICAIDPolicy Number: [id number] Date:3610-48-25Usoj Name:Michelle Ojeda ROMMELBYDOB: 8039-12-73WIO668 [address] 04/03/2024 Primary Insuranc e:MMO SUPERMED PPOPolicy Number: [id number] Date:1041-87-33Yzne Name:Arsenio Michael LIZANDRODOB: 8419-25-30OLD014 [address] 04/03/2024 Secondary Insurance:[place] MEDICAIDPolicy Number: [id number] Date:3164-99-15Erqs Name:Michelle Ojeda ROMMELBYDOB: 1350-57-83GWN778 [address] 04/03/2024 Primary Insuranc e:MMO SUPERMED PPOPolicy Number: [id number] Date:7800-63-41Avty Name:Arsenio Michael ROMMELBYDOB: 1508-15-80EUA528 [address] 04/03/2024 Secondary Insurance:[place] MEDICAIDPolicy Number: [id number] Date:1954-69-79Lwua Name:Michelle Ojeda ROMMELBYDOB: [id number] [address] 03/12/2024 Primary Insuranc e:MMO SUPERMED PPOPolicy Number: [id number] Date:3041-57-61Mddf Name:Arsenio Michael ROMMELBYDOB: [id number] [address] 03/12/2024 Secondary Insurance:[place] MEDICAIDPolicy Number: [id number] Date:5525-11-30Rkca Name:Michelle Ojeda ROMMELBYDOB: 0914-97-26TXQ854 [address] 03/09/2024 Primary Insuranc e:MMO SUPERMED PPOPolicy Number: [id number] Date:7031-74-16Hpwk Name:Arsenio Michael ROMMELBYDOB: 2348-41-36ZCL300 [address] 03/09/2024 Secondary Insurance:[place] MEDICAIDPolicy Number: [id number] Date:5628-76-40Mzru Name:Michelle Ojeda ROMMELBYDOB: 2673-27-61DZW826 [address] 02/28/2024 Primary Insuranc e:MMO SUPERMED PPOPolicy Number: [id number] Date:6670-28-73Dmbi Name:Arsenio Michale RMOMELBYDOB: 7073-86-76BHF353 [address] 02/28/2024 Secondary Insurance:[place] MEDICAIDPolicy Number: [id number] Date:5815-41-27Qfit Name:Michelle Ojeda ROMMELBYDOB: 1992-62-92PHT304 [address] 02/28/2024 Primary Insuranc e:MMO SUPERMED PPOPolicy Number: [id number] Date:5874-35-29Plzl Name:Arsenio Michael LIZANDRODOB: 6346-83-94LTB384 [address] 02/28/2024 [facility] MEDICAIDPolicy Number: [id number] Date:5025-32-37Wytg Name:Michelle Ojeda ROMMELBYDOB: 1188-15-63AYP597 [address] 01/03/2024 Primary Insuranc e:MMO SUPERMED PPOPolicy Number: [id number] Date:6699-23-21Apzv Name:Arsenio Michael ROMMELBYDOB: 4062-27-19CTD964 [address] 01/03/2024 Secondary Insurance:[place] MEDICAIDPolicy Number: [id number] Date:4016-42-61Khkl Name:Michelle Ojeda ROMMELBYDOB: 3526-92-11ENY478 [address] 12/24/2023 Primary Insuranc e:MMO SUPERMED PPOPolicy Number: [id number] Date:[id number] Name:Arsenio RACHNA Alec SANDY: [id number] [place], [place] [id number] [place] [address] 12/24/2023 Secondary Insurance:[facility] MEDICAIDPolicy Number: [id number] Date:2097-66-26Yhqz Name:Michelle DELGADO: [id number] [address] 12/21/2023 Primary Insuranc e:MMO SUPERMED PPOPolicy Number: [id number] Date:5417-12-63Vopy Name:Arsenio RACHNA Alec SANDY: [id number] [address] 12/21/2023 Secondary Insurance:[facility] MEDICAIDPolicy Number: [id number] Date:4484-37-75Sxof Name:Michelle DELGADO: [id number] [address]
[2024-11-20] VITALS (7 sets, daily range): BP systolic 148–157; BP diastolic 75–94; PULSE 73–86; RESP 16–18; TEMP 35.8–36.3; O2SAT 95–100; BMI 52.9
[2024-11-20] MEDS: Lactated Ringers 1,000 ML 15 ML IV (06:32)
--- NOTE | 2024-11-20 06:38 | PCM.HP.STD ---
HPI - General General Date of Admission: 11/20/24 Date of Service: 11/20/24 Chief Complaint: GERD HPI Narrative MADELINE MAHONEY, is a 54 F who presents the evaluation of GERD [facility] ED 09.07.24 Belching, bloating, diarrhea and dark/black stools. Stool is charcoal colored but it is Hemoccult negative. Suspect it is discoloration from Pepto-Bismol. Temporary improvement with a GI cocktail. Switch from omeprazole to Protonix. Add Carafate for symptom control. Try [id number] Maalox. [facility] EST 10.16.24 Abdominal bloating and belching, worse after eating. No improvement while taking pantoprazole or Carafate. Gas x occasionally helpful. Patient did start on Trulicity about 2 months ago when the symptoms started. She does not endorse any weight loss associated with the Trulicity. She did contact her prescriber and they did not recommend discontinuation. Hx GERD, omeprazole occasionally helpful. [facility] Medical History Wears contact lenses Wears glasses Depression History of steroid therapy Gastric reflux Non-smoker Sleep apnea Shortness of breath on exertion Asthma Restless leg Hypertension Arthritis Seasonal allergies GERD (gastroesophageal reflux disease) Home Medications ?Medication ?Instructions ?Recorded ?Last Taken ?Type albuterol sulfate 2.5 mg/3 mL 2.5 mg inhalation Q6HWA.RT 03/11/13 11/16/24 History (0.083 %) solution for nebulization albuterol sulfate 90 mcg/actuation 2 puff inhalation Q6H PRN PRN 03/11/13 11/16/24 History aerosol inhaler (Ventolin HFA) Shortness Of Breath acetaminophen 325 mg tablet 650 mg (2 x 325 mg) PO Q6H PRN PRN 04/09/16 Unknown Rx (Tylenol) Mild Pain (scale 0-3)/T>100.7 #0 TABLETS loratadine 10 mg tablet 10 mg PO DAILY 01/01/19 11/19/24 History famotidine 40 mg tablet 40 mg PO QDAY #30 tabs 10/16/24 11/19/24 Rx ropinirole 0.5 mg tablet 0.5 mg PO QHS 10/16/24 11/19/24 History ropinirole 1 mg tablet 1 mg PO QHS 10/16/24 11/19/24 History cholecalciferol (vitamin D3) 10 10 mcg PO DAILY 11/14/24 11/19/24 History mcg (400 unit) chewable tablet (Kids Vitamin D3) cyanocobalamin (vitamin B-12) 50 50 mcg PO DAILY 11/14/24 11/19/24 History mcg tablet (Vitamin B-12) losartan 25 mg tablet 25 mg PO DAILY 11/14/24 11/20/24 History metformin 500 mg tablet,extended 1,000 mg PO QPM 11/14/24 11/19/24 History release 24 hr mometasone-formoterol HFA 200 2 puff inhalation BID 11/14/24 11/20/24 History mcg-5 mcg/actuation aerosol inhaler (Dulera) montelukast 10 mg tablet 10 mg PO QHS 11/14/24 11/19/24 History omeprazole 20 mg capsule,delayed 40 mg PO DAILY 11/14/24 11/19/24 History release Allergy/AdvReac Type Severity Reaction Status Date / Time aspirin AdvReac Nausea Verified 11/14/24 14:09 Family History Other Arthritis Breast cancer CVA (cerebral vascular accident) Cancer Diabetes High cholesterol Hypertension Myocardial infarction Surgical History Hx of breast biopsy S/P hysterectomy Breast cyst Social History Smoking Status: Never smoker alcohol intake: never substance use type: does not use ROS Constitutional Constitutional: Denies fatigue, fever(s), poor appetite, weight gain or weight loss Gastrointestinal Gastrointestinal: Denies belching, bloating, change in bowel habits, change in stool character, chewing difficulty, coffee ground emesis, constipation, cramping, diarrhea, dyspepsia, dysphagia, early satiety, excessive flatus, fecal incontinence, heartburn, hematemesis, hematochezia, hemorrhoids, loose stools, melena, nausea, odynophagia, rectal bleeding, tenesmus, vomiting or weight changes Vital Signs Vital Signs Vital Signs: 11/20/24 06:26 11/20/24 06:27 Temperature 96.5 F L Temperature Source Temporal Pulse Rate 73 Respiratory Rate 16 Respiratory Pattern Normal Blood Pressure 157/94 H Blood Pressure Mean 115 Blood Pressure Source Monitor Blood Pressure Position Semi-Fowlers Blood Pressure Location Right Arm Pulse Ox 100 Oxygen Delivery Method Room Air Weight Weight: 308 lb 3.3 oz Body Mass Index (BMI) 52.9 Physical Exam Const alert, oriented x3, no apparent distress and healthy appearing General Appearance: cooperative GI normal to inspection, nondistended, normoactive bowel sounds, soft to palpation, non-tender and non-distended Percussion: normal to percussion Rectal Exam: deferred Assessment & Plan Assessment/Plan (1) GERD (gastroesophageal reflux disease): PLAN: Assessment and Plan Assessment and Plan (1) GERD (gastroesophageal reflux disease): Status: Acute Plan: Madeline is a 53-year-old female patient with past medical history of GERD here today for evaluation. Patient endorsing about 2 months of increased epigastric pain, nausea, bloating and heartburn. She was seen in the ED for the symptoms and workup was largely unremarkable. Discharged with Protonix and Carafate. She did not notice relief in her symptoms while on these medications. Of note she was started on Trulicity about 2 months ago when her symptoms worsened. I suspect that a lot of her symptoms are due to slower gastric motility from the Trulicity. I recommend she discuss with her prescriber regarding this as she may need to come off of it due to the side effects. In the interim, she will be scheduled for EGD. She will continue omeprazole and famotidine as needed. - EGD -Continue omeprazole - Famotidine as needed - Recommend discussing discontinuation of Trulicity with prescriber - Follow-up after EGD Medications: New famotidine 40 mg PO QDAY 30 tabs 2RF Discontinued pantoprazole (Protonix) Discontinued Reason: Pt no longer taking 40 mg PO DAILY 14 tabs 0RF
--- NOTE | 2024-11-20 07:00 | EGD_PTH ---
PATIENT: CINTHYA MAHONEY LOC: EN U#:[id number] AGE/SX: 54/F ROOM: RE11/20/[address]: Dr. Kevin Ceballos DO : 1970 BED: DIS: 11/20/2024 SPEC #: [id number] RECD: 11/20/24 07:53 STATUS: HERB REFrancesca #: [id number] [place]: 11/20/24 07:[address]: Kevin Ceballos DEPT: SURGICAL PATHOLOGY RECD BY: Javi Jarvis ENTERED: 11/20/24 10:03 SP TYPE: EGD BIOPSY [place] DR: Dr. Shashi Morris MD Tissues: A - Esophagus, NOS Procedures: Surgery Specimen Level IV HEADER OPERATION: EGD with biopsy PRE-OP DIAGNOSIS: GERD TISSUE SUBMITTED: A- Distal esophagus biopsy MICROSCOPIC DIAGNOSIS A. Distal esophagus, biopsy: * Squamous mucosa with reactive changes. * Columnar mucosa negative for goblet cell metaplasia. MICROSCOPIC DESCRIPTION Slides are reviewed. GROSS DESCRIPTION A. Received in fixative is one container labeled with the patient's name and designated Distal esophagus biopsy. The specimen consists of two irregular fragments of antunez tissue, each measuring 0.4 cm. The specimen is totally submitted in one cassette. NM 11/20/2024 CPT:95989
--- NOTE | 2024-11-20 07:10 | PCM.PRE.AN2 ---
ASA Classification* ASA Classification ASA Classification: 3 Assessment & Plan Anesthesia* Anesthesia Assessment Anesthesia Assessment: Discussed sedation and/or anesthesia options, risks, benefits, and alternatives with patient/parents/legal guardian/POA. Questions invited. The patient/parents/legal guardian/POA seems to understand and agrees to proceed with anesthesia plan. Reviewed the physical assessment, medical history, allergy history and patient home medications list prior to surgery/procedure/anesthetic and documented any changes. Performed airway and anesthesia risk assessments. Anesthesia Type Anesthesia Type: MAC History Source History Obtained from:: Patient and Chart Anesthesia Focused Assessment* Temperature: 96.5 F Pulse Rate: 73 Blood Pressure: 157/94 Respiratory Rate: 16 Pulse Ox: 100 Oxygen Delivery Method: Room Air Airway Assessment Mouth opens: >3 cm Mallampati Score: III Teeth Condition: Chipped/Broken (Patient has chipped right lower canine.) and Missing (Patient has several missing teeth. Rest are tight.) Neck Range of motion (ROM): Limited ROM (Somewhat Decreased) Labs Anesthesia Preop lab: CBC WBC, (4.4-11.0) 5.4 K/mm3 09/07/24, 11:15 RBC, (4.2-5.4) 4.60 M/mm3 09/07/24, 11:15 Hgb, (12.0-15.0) 12.5 g/dL 09/07/24, 11:15 Hct, (37-47) 38.5 % 09/07/24, 11:15 Plt Count, (150-450) 334 K/mm3 09/07/24, 11:15 CHEMISTRY Potassium, (3.3-5.1) 4.1 mmol/L 09/07/24, 11:15 Sodium, (133-145) 140 mmol/L 09/07/24, 11:15 Magnesium, (1.8-2.4) 2.1 mg/dL 04/08/16, 05:28 BUN, (4-19) 16 mg/dL 09/07/24, 11:15 Creatinine, (0.70-1.20) 1.00 mg/dL 09/07/24, 11:15 Glucose, (70-99) 110 mg/dL H 09/07/24, 11:15 POC Glucose, (74-106) 106 mg/dL Today, 06:40 COAG Pre-Assessment Diagnosis/Proposed Procedure Planned Operative Procedure(s): EGD Anesthesia History 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 When Was Last Pacemaker Check QUESTION #4 FULL TEXT: You/Your Family Experience fever (hyperthermia) with Anesthesia Last Oral Intake Last Oral intake: Last Oral Intake NPO since 00:00 11/20/24 06:27 Meds taken in AM with sips of Yes 11/20/24 06:27 water? Meds patient instructed to losartan 11/20/24 06:27 take am of surgery dulera PONV PONV - shot polisher: PONV - shot polisher Female Yes 11/14/24 14:21 HX of Motion Sickness Yes 11/14/24 14:21 HX of N/V After Surgery No 11/14/24 14:21 Non-Smoker Yes 11/14/24 14:21 Duration of Surgery greater No 11/14/24 14:21 than 60 minutes Number of Risk Factors 3 11/14/24 14:21 PONV Score Moderate Risk 11/14/24 14:21 Height & Weight Height & Weight: Anesthesia: Height & Weight Height 5 ft 4 in 11/20/24 06:27 Weight: 139.8 kg 11/20/24 06:27 Body Mass Index (BMI) 52.9 11/20/24 06:27 Respiratory Assessment Respiratory Assessment - shot polisher: Respiratory Tract Infection Hx - shot polisher Hx Respiratory Tract Infection No 11/14/24 14:21 STOP Sleep Apnea STOP Sleep Apnea - shot polisher: STOP Sleep Apnea - shot polisher Hx Hypertension No 11/14/24 14:21 Hx Sleep Apnea No: PARTIAL SLEEP STUDIES 11/14/24 14:21 DONE CPAP BIPAP Do you snore loudly (louder No 11/14/24 14:21 than talking or can be heard Do you often feel tired/ No 11/14/24 14:21 fatigued/ sleepy during daytime? Has anyone observed you stop No 11/14/24 14:21 breathing during sleep? STOP Results Negative 11/14/24 14:21 QUESTION #5 FULL TEXT : Do you snore loudly (louder than talking or can be heard through closed doors)? 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 Specify any problems Hx of Preganancy in last 3 N/A 11/14/24 14:21 Months Nurse Filling Out Transfusion VCHRISTIN 11/14/24 14:21 & Questions: Date: 11/14/24 11/14/24 14:21 Time: 14:22 11/14/24 14:21 Patient unable to answer at this time (ie. confused, unrespo /Reproduction History /Reproductive History - shot polisher: /Reproductive Hx- shot polisher Hx Now No 11/14/24 14:21 Gestational Age (in weeks): EDC: Hx Hx Para Hx Section SAB Active Medications Active Medications: Current Medications Generic Name Dose Route Start Last Admin Trade Name Freq PRN Reason Stop Dose Admin Lactated Ringer's 1,000 mls @ 15 mls/hr 11/20/24 06:15 11/20/24 06:32 IV 15 mls/hr .Q48H CHAD Administration PFSH Medical History Wears contact lenses Wears glasses Depression History of steroid therapy Gastric reflux Non-smoker Sleep apnea Shortness of breath on exertion Asthma Restless leg Hypertension Arthritis Seasonal allergies GERD (gastroesophageal reflux disease) Home Medications ?Medication ?Instructions ?Recorded ?Last Taken ?Type albuterol sulfate 2.5 mg/3 mL 2.5 mg inhalation Q6HWA.RT 03/11/13 11/16/24 History (0.083 %) solution for nebulization albuterol sulfate 90 mcg/actuation 2 puff inhalation Q6H PRN PRN 03/11/13 11/16/24 History aerosol inhaler (Ventolin HFA) Shortness Of Breath acetaminophen 325 mg tablet 650 mg (2 x 325 mg) PO Q6H PRN PRN 04/09/16 Unknown Rx (Tylenol) Mild Pain (scale 0-3)/T>100.7 #0 TABLETS loratadine 10 mg tablet 10 mg PO DAILY 01/01/19 11/19/24 History famotidine 40 mg tablet 40 mg PO QDAY #30 tabs 10/16/24 11/19/24 Rx ropinirole 0.5 mg tablet 0.5 mg PO QHS 10/16/24 11/19/24 History ropinirole 1 mg tablet 1 mg PO QHS 10/16/24 11/19/24 History cholecalciferol (vitamin D3) 10 10 mcg PO DAILY 11/14/24 11/19/24 History mcg (400 unit) chewable tablet (Kids Vitamin D3) cyanocobalamin (vitamin B-12) 50 50 mcg PO DAILY 11/14/24 11/19/24 History mcg tablet (Vitamin B-12) losartan 25 mg tablet 25 mg PO DAILY 11/14/24 11/20/24 History metformin 500 mg tablet,extended 1,000 mg PO QPM 11/14/24 11/19/24 History release 24 hr mometasone-formoterol HFA 200 2 puff inhalation BID 11/14/24 11/20/24 History mcg-5 mcg/actuation aerosol inhaler (Dulera) montelukast 10 mg tablet 10 mg PO QHS 11/14/24 11/19/24 History omeprazole 20 mg capsule,delayed 40 mg PO DAILY 11/14/24 11/19/24 History release Allergy/AdvReac Type Severity Reaction Status Date / Time aspirin AdvReac Nausea Verified 11/14/24 14:09 Family History Other Arthritis Breast cancer CVA (cerebral vascular accident) Cancer Diabetes High cholesterol Hypertension Myocardial infarction Surgical History Hx of breast biopsy S/P hysterectomy Breast cyst Social History Smoking Status: Never smoker alcohol intake: never substance use type: does not use Review of Systems (Anesthesia) ROS Narrative System reviewed and no additional complaints, except as documented.
--- NOTE | 2024-11-20 07:41 | PCM.POST.ANE ---
Anesthesia: Postop Eval I Current Vital Signs Temperature: 97.4 F Pulse Rate: 86 Blood Pressure: 150/92 Respiratory Rate: 16 Pulse Ox: 99 Oxygen Delivery Method: Room Air Assessment Airway patent: Yes Spontaneous unlabored respirations: Yes Mental status: Awake and Calm nausea: No Vomiting: No Anesthesia Complication: No Fluid Hydration Crystalloid volume administer (ml): 500 Total IV fluid infused: 500 Progress Note Anesthesia document: Postop Eval 1 completed: Yes
--- NOTE | 2024-11-20 07:45 | OP.PROVAT_ITS ---
11/20/2024 Shashi Morris MD Re : Upper GI endoscopy procedure for Madeline Bone Dear Dr. Morris This procedure was performed on Wednesday, November 20, 2024. My impressions and recommendations are as follows: Impressions : - Z-line irregular, 40 cm from the incisors. Biopsied. - Large hiatal hernia. - Normal stomach. - Normal examined duodenum. Recommendations : - Await pathology results. - Continue present medications. My findings are described in the full procedure note, which is enclosed. If I can be of further assistance, please feel free to contact me at . Sincerely, Kevin Ceballos, 11/20/2024 7:44:52 AM This report has been signed electronically.
--- NOTE | 2024-11-20 07:45 | OP.EGD_ITS ---
Patient Name: Madeline Bone Procedure Date: 11/20/2024 7:08 AM Date of : 1970 Age: 54 Procedure: Upper GI endoscopy Indications: Epigastric abdominal pain, Functional Dyspepsia, Heartburn Providers: Kevin Ceballos DO Referring MD: Shashi Morris MD Medicines: Monitored Anesthesia Care Patient Profile: This is a 54 year old female. Refer to note in patient chart for documentation of history and physical. Patient has symptoms. Complications: No immediate complications. Procedure: Pre-Anesthesia Assessment: - Prior to the procedure, a History and Physical was performed, and patient medications and allergies were reviewed. The patient is competent. The risks and benefits of the procedure and the sedation options and risks were discussed with the patient. All questions were answered and informed consent was obtained. Patient identification and proposed procedure were verified by the physician. Mental Status Examination: alert and oriented. Airway Examination: normal oropharyngeal airway and neck mobility. Respiratory Examination: clear to auscultation. CV Examination: normal. Prophylactic Antibiotics: The patient does not require prophylactic antibiotics. Prior Anticoagulants: The patient has taken no anticoagulant or antiplatelet agents except for NSAID medication. ASA Grade Assessment: II - A patient with mild systemic disease. After reviewing the risks and benefits, the patient was deemed in satisfactory condition to undergo the procedure. The anesthesia plan was to use monitored anesthesia care (MAC). Immediately prior to administration of medications, the patient was re-assessed for adequacy to receive sedatives. The heart rate, respiratory rate, oxygen saturations, blood pressure, adequacy of pulmonary ventilation, and response to care were monitored throughout the procedure. The physical status of the patient was re-assessed after the procedure. After obtaining informed consent, the endoscope was passed under direct vision. Throughout the procedure, the patient's blood pressure, pulse, and oxygen saturations were monitored continuously. The Endoscope was introduced through the mouth, and advanced to the second part of duodenum. The upper GI endoscopy was accomplished without difficulty. The patient tolerated the procedure well. Scope In: 7:24:54 AM Scope Out: 7:27:44 AM Total Procedure Duration Time 0 hours 2 minutes 50 seconds Findings: The Z-line was irregular and was found 40 cm from the incisors. Biopsies were taken with a cold forceps for histology. A large hiatal hernia was present. The entire examined stomach was normal. The examined duodenum was normal. Impression: - Z-line irregular, 40 cm from the incisors. Biopsied. - Large hiatal hernia. - Normal stomach. - Normal examined duodenum. Recommendation: - Await pathology results. - Continue present medications. Procedure Code(s): --- Professional --- 05182, Esophagogastroduodenoscopy, flexible, transoral; with biopsy, single or multiple CPT copyright 2021 [employer]. All rights reserved. The codes documented in this report are preliminary and upon bankman review may be revised to meet current compliance requirements. Kevin Ceballos DO 11/20/2024 7:44:52 AM This report has been signed electronically. Number of Addenda: 0 Note Initiated On: 11/20/2024 7:08 AM
--- NOTE | 2024-11-20 08:36 | PCM.POSTANE2 ---
Anesthesia Postop Eval I Sum Postop Eval Completion status Anesthesia document: Postop Eval 1 completed: Yes Anesthesia Postop Eval I Summary Anesthesia Postop Eval I Summary: Anesthesia Postop Eval I: Assessment Summary Airway patent Yes 11/20/24 07:42 [email or web address] Spontaneous unlabored Yes 11/20/24 07:42 [email or web address] respirations Mental status Awake,Calm 11/20/24 07:42 [email or web address] nausea No 11/20/24 07:42 [email or web address] Vomiting No 11/20/24 07:42 [email or web address] Anesthesia Postop Eval I: Fluid Summary Crystalloid volume administer 500 11/20/24 07:42 [email or web address] (ml) Colloids volume administered ( ml) Blood Product volume administered (ml) Total IV fluid infused 500 11/20/24 07:42 [email or web address] Anesthesia Postop Eval I: Summary Notes Anesthesia Complication No 11/20/24 07:42 [email or web address] Anesthesia Complication Comment: Post-operative progress note Anesthesia: Postop Eval II Evaluation Mental status: Awake and Calm Pain Level: 0 nausea: No Vomiting: No Complications Anesthesia Complication: No
== END 2024-11-20 08:05 | disposition home or self-care (01) ==
LOC: EN 05:52 → AC 05:53
PROVIDERS: PCP Family Medicine; Referring Provider Family Medicine; Visit Provider Internal Medicine Gastroenterology
PROC: 0DJ08ZZ Inspection of Upper Intestinal Tract, Via Natural or Artificial Opening Endoscopic (ICD-10-PCS; CPT 43235; principal; 2024-11-20 06:55)
DX: K21.9 Gastro-esophageal reflux disease without esophagitis (principal); I10 Essential (primary) hypertension; K44.9 Diaphragmatic hernia without obstruction or gangrene; Z79.899 Other long term (current) drug therapy; G25.81 Restless legs syndrome; Z79.51 Long term (current) use of inhaled steroids; Z90.710 Acquired absence of both cervix and uterus; K22.89 Other specified disease of esophagus
CPT/HCPCS: 43239; 82962; 88305; J2405